=== PATIENT | female | born 1960 | race Caucasian/White ===

== ENCOUNTER → 2019-05-26 13:19 | Outpatient (CLI) | payer MEDICAID, SELFPAY ==
[2019-05-26 13:31] LABS: Basophils # 0.1 K/mm3 (0-0.2); Basophils % 0.5 % (0.1-2.0); Eosinophils # 0.2 K/mm3 (0.0-0.4); Eosinophils % 1.6 % (0.1-12.0); Hematocrit 48.8 % (37.0-47.0); Hemoglobin 15.1 g/dL (12.2-16.2); Lymphocytes # 4.6 K/mm3 (0.7-4.5); Lymphocytes % 32.1 % (10-50); Mean Corpuscular Hemoglobin 27.8 pg (27.0-31.2); Mean Corpuscular Volume 89.7 fl (81-99); Mean Platelet Volume 9.2 fl (7.4-10.4); Monocytes # 0.8 K/mm3 (0.1-1.0); Monocytes % 5.5 % (1.7-9.3); Neutrophils # 8.6 K/mm3 (1.8-7.8); Neutrophils % 60.4 % (37.0-80.0); Platelet Count 340 K/mm3 (142-424); Red Blood Count 5.44 M/mm3 (4.20-5.40); Red Cell Distribution Width 14.2 % (11.5-17.5); White Blood Count 14.3 K/mm3 (4.8-10.8)
[2019-05-26 14:50] LABS: Alanine Aminotransferase 24 U/L (12-78); Albumin Level 4.1 gm/dL (3.4-5.0); Albumin/Globulin Ratio 1.2 (1.1-1.8); Alkaline Phosphatase 83 U/L (46-116); Anion Gap 15.9 mEq/L (5-15); Aspartate Amino Transferase 22 U/L (15-37); Bilirubin,Total 0.4 mg/dL (0.2-1.0); Blood Urea Nitrogen 8 mg/dL (7-18); Calcium 10.1 mg/dL (8.5-10.1); Carbon Dioxide 27 mmol/L (21.0-32.0); Chloride 102 mmol/L (98-107); Chol/HDL Ratio 2.6 (1-3.5); Cholesterol 147 mg/dL (140-200); Creatinine,Serum 0.51 mg/dL (0.55-1.02); Estimated Glomerular Filt Rate 124 ml/min (>60); Free T4 (Free Thyroxine) 1.09 ng/dl (0.76-1.46); GFR (African American) 150 ML/MIN (>60); Globulin 3.4 gm/dl (1.3-3.2); Glucose 90 mg/dL (74-106); HDL Cholesterol 57 mg/dL (29-89); LDL Cholesterol 64 mg/dL (0-130); Potassium 3.9 mmoL/L (3.5-5.1); Sodium 141 mmol/L (136-145); Thyroid Stimulating Hormone 1.49 uIU/ml (0.358-3.740); Total Protein,Serum 7.5 gm/dL (6.4-8.2); Triglycerides 131 mg/dL (30-200); VLDL Cholesterol 26 mg/dL (0-40)
[2019-05-26 14:56] LABS: Hemoglobin A1C 8.3 % (0.0-7.0)
[2019-05-27 09:10] LABS: Vitamin D 25 Hydroxy 32.4 ng/mL (30.0-100.0)
[2019-05-27 11:48] LABS: Creatinine, Urine 177.4 mg/dL (Not Estab.); Microalbumin, Urine 33.2 ug/mL (Not Estab.)
== END ==
PROVIDERS: Visit Provider Emergency Medicine
DX: E11.9 Type 2 diabetes mellitus without complications (principal); Z79.84 Long term (current) use of oral hypoglycemic drugs
CPT/HCPCS: 80053; 80061; 82043; 82570; 82652; 83036; 84439; 84443; 85025

== ENCOUNTER → 2019-08-11 09:26 | Outpatient (CLI) | payer MEDICAID, SELFPAY ==
--- NOTE | 2019-08-11 09:27 | MM_ITS ---
PROCEDURE: MM DIG SCREENING MAMM BI W/CAD CLINICAL INDICATION: screening There is no personal or family history of breast cancer COMPARISON: DIG MAMMO BILAT SCREENING from 12/31/2012 MAMMO SCREENING DIGITAL BILAT from 11/13/2014 Screening-Bilateral Mammography from 04/13/2017 TECHNIQUE: Standard CC and MLO images were obtained. R2 CAD reviewed. FINDINGS: Moderate scattered fibroglandular densities are seen throughout both breasts. There is a curious metallic tubular object deep within the left breast lower medial quadrant. The patient has a history of previous heart surgery as a baby. This metallic foreign body is stable and unchanged in appearance from the previous outside mammograms. There prominent somewhat serpiginous dilated venous structures in the axillary tail right breast. They have shown progressive enlargement over last 3 mammograms dating back to October 2014. Suggest the patient be evaluated for possible venous obstruction right arm and or right shoulder region. There are few scattered benign-appearing microcalcifications in the axillary tail right breast. There is no suspicious lesion and no suspicious microcalcifications. IMPRESSION: Fibrofatty parenchyma with findings as described, stable curious metallic artifact lower inner quadrant left breast prominent somewhat tortuous draining veins in the right axilla and axillary tail of the breast. BI-RAD Category: FOLLOW-UP: 1YR 1 Year Follow-up (A letter has been sent to the patient regarding results of the study.) Dictated by: Dr. Carlton Pimentel MD 08/15/2019 15:[address] Carlton Pimentel MD in [place] 08/15/2019 15:55
== END ==
PROVIDERS: PCP Emergency Medicine; Visit Provider Emergency Medicine
DX: Z12.31 Encounter for screening mammogram for malignant neoplasm of breast (principal)
CPT/HCPCS: 77067

== ENCOUNTER → 2019-09-15 10:41 | Outpatient (CLI) | payer MEDICAID, SELFPAY ==
--- NOTE | 2019-09-15 10:56 | ECG_ITS ---
APPROVED REPORT Exam: Resting ECG HR:66 bpm ECG Measurements Heart Rate 66 AXES GA 136 P 43 QRSd 74 QRS 78 QT 516 T 79 QTc 540 <Conclusion> Sinus rhythm with premature atrial complexes in a pattern of bigeminy Nonspecific T wave abnormality Prolonged QT Abnormal ECG Electronically signed by : Navdeep Swann, 09/15/2019 12:49:46
== END ==
PROVIDERS: Visit Provider Surgery
DX: K81.1 Chronic cholecystitis (principal)
CPT/HCPCS: 93005

== ENCOUNTER → 2020-01-14 13:22 | Outpatient (CLI) | payer MEDICAID, SELFPAY ==
[2020-01-14 14:08] LABS: Alanine Aminotransferase 24 U/L (12-78); Albumin Level 4.7 g/dl (3.5-5.0); Albumin/Globulin Ratio 1.7 (1.1-1.8); Alkaline Phosphatase 59 U/L (38-126); Anion Gap 12.4 mEq/L (5-15); Aspartate Amino Transferase 31 U/L (14-36); Bilirubin,Total 0.3 mg/dl (0.2-1.3); Blood Urea Nitrogen 14 mg/dl (7-17); Calcium 10.6 mg/dl (8.4-10.2); Carbon Dioxide 26 mmol/L (22.0-30.0); Chloride 102 mmol/L (98-107); Chol/HDL Ratio 1.9 (1-3.5); Cholesterol 107 mg/dl (140-200); Estimated Glomerular Filt Rate 126 ml/min (>60); GFR (African American) 153 ML/MIN (>60); Globulin 2.7 g/dL (1.3-3.2); Glucose 142 mg/dl (74-100); HDL Cholesterol 55 mg/dl (40-60); Potassium 4.4 mmoL/L (3.5-5.1); Sodium 136 mmol/L (136-145); Total Protein,Serum 7.4 g/dl (6.3-8.2); Triglycerides 252 mg/dl (30-150); VLDL Cholesterol 50 mg/dL (0-40)
[2020-01-14 14:19] LABS: Direct LDL Cholesterol 38.84 mg/dL (100-129); Free T4 (Free Thyroxine) 1.02 ng/dl (0.78-2.19)
[2020-01-14 14:26] LABS: Basophils # 0.1 K/mm3 (0-0.2); Basophils % 0.7 % (0.1-2.0); Eosinophils # 0.2 K/mm3 (0.0-0.4); Eosinophils % 2.4 % (0.1-12.0); Hematocrit 44.5 % (37.0-47.0); Hemoglobin 13.8 g/dL (12.2-16.2); Lymphocytes # 3.2 K/mm3 (0.7-4.5); Lymphocytes % 34.5 % (10-50); Mean Corpuscular HGB Conc 31.1 g/dL (31.8-35.4); Mean Corpuscular Hemoglobin 28.6 pg (27.0-31.2); Mean Corpuscular Volume 92.1 fl (81-99); Mean Platelet Volume 9.7 fl (7.4-10.4); Monocytes # 0.4 K/mm3 (0.1-1.0); Monocytes % 4.5 % (1.7-9.3); Neutrophils # 5.3 K/mm3 (1.8-7.8); Neutrophils % 57.8 % (37.0-80.0); Platelet Count 310 K/mm3 (142-424); Red Blood Count 4.83 M/mm3 (4.20-5.40); Red Cell Distribution Width 14.1 % (11.5-17.5); White Blood Count 9.2 K/mm3 (4.8-10.8)
[2020-01-14 14:38] LABS: Thyroid Stimulating Hormone 0.69 uIU/mL (0.465-4.68)
[2020-01-15 09:14] LABS: Microalbumin, Urine 7.3 ug/mL (Not Estab.)
== END ==
PROVIDERS: Visit Provider Emergency Medicine
DX: E11.9 Type 2 diabetes mellitus without complications (principal); Z79.4 Long term (current) use of insulin; Z79.899 Other long term (current) drug therapy
CPT/HCPCS: 80053; 80061; 82043; 82570; 83036; 84439; 84443; 85025

== ENCOUNTER → 2020-02-17 14:17 | Outpatient (CLI) | payer MEDICAID, SELFPAY ==
[2020-02-17 14:51] LABS: Anion Gap 14.7 mEq/L (5-15); Blood Urea Nitrogen 17 mg/dl (7-17); Calcium 10.4 mg/dl (8.4-10.2); Carbon Dioxide 28 mmol/L (22.0-30.0); Chloride 99 mmol/L (98-107); Estimated Glomerular Filt Rate 126 ml/min (>60); GFR (African American) 153 ML/MIN (>60); Glucose 90 mg/dl (74-100); Potassium 4.7 mmoL/L (3.5-5.1); Sodium 137 mmol/L (136-145)
== END ==
PROVIDERS: Visit Provider Emergency Medicine
DX: E83.52 Hypercalcemia (principal)
CPT/HCPCS: 80048

== ENCOUNTER → 2020-05-12 15:17 | Outpatient (CLI) | payer MEDICAID, SELFPAY | PROVIDERS: PCP Emergency Medicine; Visit Provider Emergency Medicine | DX: S11.90XA Unspecified open wound of unspecified part of neck, initial encounter (principal); L03.90 Cellulitis, unspecified | CPT/HCPCS: 87070; 87077; 87186; 87205 ==

== ENCOUNTER → 2020-11-02 10:56 | Outpatient (CLI) | payer MEDICAID, SELFPAY ==
[2020-11-02 18:13] LABS: Chol/HDL Ratio 3.4 (1-3.5); Cholesterol 148 mg/dl (140-200); HDL Cholesterol 44 mg/dl (40-60)
[2020-11-02 18:35] LABS: Free T4 (Free Thyroxine) 1.19 ng/dl (0.78-2.19)
[2020-11-02 20:57] LABS: Triglycerides 589 mg/dl (30-150)
== END ==
PROVIDERS: PCP Emergency Medicine; Visit Provider Emergency Medicine
DX: Z20.822 Contact with and (suspected) exposure to COVID-19 (principal); E11.9 Type 2 diabetes mellitus without complications; Z79.4 Long term (current) use of insulin; Z79.899 Other long term (current) drug therapy
CPT/HCPCS: 80061; 84439; 84443; U0003

== ENCOUNTER → 2020-11-02 14:47 | Outpatient (CLI) | payer MEDICAID, SELFPAY ==
[2020-11-02 15:15] LABS: Microalbumin/Creatinine Ratio 125.6
[2020-11-02 15:23] LABS: Creatinine,Urine Random 16 mg/dL (Not Estab.)
== END ==
PROVIDERS: Visit Provider Emergency Medicine
DX: E11.9 Type 2 diabetes mellitus without complications (principal); Z79.4 Long term (current) use of insulin
CPT/HCPCS: 82043; 82570

== ENCOUNTER → 2021-01-03 10:20 | Outpatient (CLI) | payer MEDICAID, SELFPAY ==
--- NOTE | 2021-01-03 10:31 | XR_ITS ---
PROCEDURE: XR SOFT TISSUE NECK CLINICAL INDICATION: neck pain COMPARISON: No exams were available for comparison FINDINGS: Multiple images of the soft tissues of the neck demonstrate disruption of the shunt tubing material in left lateral aspect of the neck on the AP and oblique images. Otherwise the soft tissues demonstrate no focal abnormality. Multilevel minor degenerative changes of the cervical spine. Visualized lung apices are clear.. IMPRESSION: There appears to be disruption of the shunt tubing material. If clinically indicated, CT scan of the head should be considered to evaluate for ventriculomegaly. Dictated by: Estefanía Montemayor 01/03/2021 13:11 Estefanía Montemayor in [facility] 01/03/2021 13:11
--- NOTE | 2021-01-03 10:31 | XR_ITS ---
PROCEDURE: XR CHEST 2V CLINICAL HISTORY: shortness of breath COMPARISON: No exams were available for comparison FINDINGS: Minor left basal atelectasis. Few scattered calcified pleural plaques are noted. Trace left effusion. Raise right hemidiaphragm is noted. No lobar consolidation, or pneumothorax. Cardiac size and central pulmonary vasculature within normal limits. Minor degenerative changes of the visualized thoracic spine. Shunt tubing is noted over the left hemithorax. The soft tissues of the neck were imaged and will be reported separately. The distal end of the shunt tube is noted on the lateral radiograph, appears to be in the upper abdomen. IMPRESSION: Left basal atelectasis. Trace left effusion. Dictated by: Estefanía Montemayor 01/03/2021 12:50 Estefanía Montemayor in [facility] 01/03/2021 12:50
[2021-01-03 14:28] LABS: Alanine Aminotransferase 29 U/L (12-78); Albumin Level 4.8 g/dl (3.5-5.0); Albumin/Globulin Ratio 1.6 (1.1-1.8); Alkaline Phosphatase 77 U/L (38-126); Anion Gap 14.6 mEq/L (5-15); Aspartate Amino Transferase 40 U/L (14-36); Bilirubin,Total 0.5 mg/dl (0.2-1.3); Blood Urea Nitrogen 13 mg/dl (7-17); Calcium 10.5 mg/dl (8.4-10.2); Carbon Dioxide 29 mmol/L (22.0-30.0); Chloride 99 mmol/L (98-107); Estimated Glomerular Filt Rate 163 ml/min (>60); GFR (African American) 197 ML/MIN (>60); Glucose 177 mg/dl (74-100); Potassium 3.6 mmoL/L (3.5-5.1); Sodium 139 mmol/L (136-145); Total Protein,Serum 7.8 g/dl (6.3-8.2)
[2021-01-03 14:31] LABS: Basophils # 0.1 K/mm3 (0-0.2); Basophils % 0.8 % (0.1-2.0); Eosinophils # 0.2 K/mm3 (0.0-0.4); Eosinophils % 2.2 % (0.1-12.0); Hematocrit 46.8 % (37.0-47.0); Hemoglobin 15.5 g/dL (12.2-16.2); Lymphocytes # 2.9 K/mm3 (0.7-4.5); Lymphocytes % 37.2 % (10-50); Mean Corpuscular HGB Conc 33.1 g/dL (31.8-35.4); Mean Corpuscular Volume 87.5 fl (81-99); Mean Platelet Volume 9.1 fl (7.4-10.4); Monocytes # 0.4 K/mm3 (0.1-1.0); Monocytes % 5.6 % (1.7-9.3); Neutrophils # 4.3 K/mm3 (1.8-7.8); Neutrophils % 54.3 % (37.0-80.0); Platelet Count 303 K/mm3 (142-424); Red Blood Count 5.34 M/mm3 (4.20-5.40); Red Cell Distribution Width 13.6 % (11.5-17.5); White Blood Count 7.9 K/mm3 (4.8-10.8)
== END ==
PROVIDERS: PCP Emergency Medicine; Visit Provider Emergency Medicine
DX: R06.02 Shortness of breath (principal); M54.2 Cervicalgia; E11.9 Type 2 diabetes mellitus without complications; Z79.4 Long term (current) use of insulin
CPT/HCPCS: 70360; 71046; 80053; 83036; 85025

== ENCOUNTER → 2021-12-23 16:21 | Outpatient (CLI) | payer MEDICAID, SELFPAY ==
[2021-12-23 13:15] LABS: Microscopic, Urine URINE MICROSCOPIC (MICROSCOPIC)
[2021-12-23 14:01] LABS: Basophils # 0.1 K/mm3 (0-0.2); Eosinophils # 0.2 K/mm3 (0.0-0.4); Eosinophils % 1.8 % (0.1-12.0); Hemoglobin 14.7 g/dL (12.2-16.2); Lymphocytes # 3.1 K/mm3 (0.7-4.5); Lymphocytes % 34.2 % (10-50); Mean Corpuscular HGB Conc 32.6 g/dL (31.8-35.4); Mean Corpuscular Hemoglobin 29.3 pg (27.0-31.2); Mean Corpuscular Volume 89.8 fl (81-99); Mean Platelet Volume 10.4 fl (7.4-10.4); Monocytes # 0.5 K/mm3 (0.1-1.0); Monocytes % 5.2 % (1.7-9.3); Neutrophils # 5.3 K/mm3 (1.8-7.8); Neutrophils % 57.7 % (37.0-80.0); Platelet Count 246 K/mm3 (142-424); Red Blood Count 5.01 M/mm3 (4.20-5.40); Red Cell Distribution Width 14.6 % (11.5-17.5); White Blood Count 9.1 K/mm3 (4.8-10.8)
[2021-12-23 17:20] LABS: Appearance,Urine CLEAR (Clear); Bilirubin,Urine Negative (Negative); Blood, Urine Negative (Negative); Color,Urine YELLOW (Yellow); Glucose,Urine (UA) 3+ (Negative); Ketones,Urine Negative (Negative); Leukocyte Esterase,Urine Negative (Negative); Nitrate,Urine Negative (Negative); PH,Urine 5.5 (5.0-8.5); Protein,Urine Negative (Negative); Specific Gravity, Urine 1.025 (1.005-1.030); Urobilinogen,Urine 0.2 EU/dl (0.2)
[2021-12-23 17:49] LABS: Bacteria,Urine Trace /lpf; WBC,Urine Occasional #/hpf (0-3)
[2021-12-23 18:51] LABS: Alanine Aminotransferase 37 U/L (12-78); Albumin Level 4.4 g/dl (3.5-5.0); Albumin/Globulin Ratio 1.9 (1.1-1.8); Alkaline Phosphatase 96 U/L (38-126); Anion Gap 15.3 mEq/L (5-15); Aspartate Amino Transferase 31 U/L (14-36); Bilirubin,Total 0.4 mg/dl (0.2-1.3); Blood Urea Nitrogen 14 mg/dl (7-17); Carbon Dioxide 22 mmol/L (22.0-30.0); Chloride 103 mmol/L (98-107); Estimated Glomerular Filt Rate 125 ml/min (>60); GFR (African American) 152 ML/MIN (>60); Globulin 2.3 g/dL (1.3-3.2); Glucose 386 mg/dl (74-100); Potassium 4.3 mmoL/L (3.5-5.1); Sodium 136 mmol/L (136-145); Total Protein,Serum 6.7 g/dl (6.3-8.2)
== END ==
PROVIDERS: PCP Emergency Medicine; Visit Provider Emergency Medicine
DX: E11.9 Type 2 diabetes mellitus without complications (principal); R82.90 Unspecified abnormal findings in urine; Z79.4 Long term (current) use of insulin
CPT/HCPCS: 80053; 81001; 85025; 87086

== ENCOUNTER → 2022-03-24 15:03 | Outpatient (CLI) | payer MEDICAID, SELFPAY ==
--- NOTE | 2022-03-24 15:06 | MM_ITS ---
PROCEDURE INFORMATION: Exam: MG Bilateral Screening 3D Mammography Exam date and time: 03/24/2022 3:12 PM Age: 61 years old Clinical indication: Screening examination TECHNIQUE: Imaging protocol: Bilateral Screening tomosynthesis and 2D mammography including computer-aided detection (CAD) when performed. COMPARISON: 1. MG MM DIG SCREENING MAMM BI W/CAD 08/11/2019 9:39 AM 2. MG Screening-Bilateral Mammography 04/13/2017 11:35 AM FINDINGS: MAMMOGRAPHY: Breast composition: There are scattered areas of fibroglandular density. Mass: None. Architectural distortion: None. Calcifications: No suspicious calcifications. Asymmetric density: None. Skin thickening: None. Axillary adenopathy: None. Calcified tubing is is again seen in the posterior left breast. Prominent right axillary tail vascular structures are a stable finding IMPRESSION: No mammographic evidence of malignancy. Annual screening is recommended unless otherwise clinically indicated. ASSESSMENT: BI-RADS Category 1: Negative
== END ==
PROVIDERS: PCP Emergency Medicine; Visit Provider Emergency Medicine
DX: Z12.31 Encounter for screening mammogram for malignant neoplasm of breast (principal)
CPT/HCPCS: 77063; 77067

== ENCOUNTER → 2022-05-08 19:39 | Outpatient (CLI) | payer MEDICAID, SELFPAY ==
[2022-05-08 20:55] LABS: Hemoglobin A1C 9.4 % (4.0-6.0)
== END ==
PROVIDERS: PCP Family Medicine; Visit Provider Family Medicine
DX: E11.9 Type 2 diabetes mellitus without complications (principal); Z79.4 Long term (current) use of insulin
CPT/HCPCS: 83036

== ENCOUNTER → 2023-01-15 15:16 | Outpatient (CLI) | payer MEDICAID, SELFPAY ==
[2023-01-15 18:26] LABS: Alanine Aminotransferase 25 U/L (12-78); Albumin Level 4.3 g/dl (3.5-5.0); Albumin/Globulin Ratio 1.5 (1.1-1.8); Alkaline Phosphatase 113 U/L (38-126); Anion Gap 21.4 mEq/L (5-15); Aspartate Amino Transferase 26 U/L (14-36); Bilirubin,Total 0.6 mg/dl (0.2-1.3); Blood Urea Nitrogen 16 mg/dl (7-17); Calcium 9.8 mg/dl (8.4-10.2); Carbon Dioxide 24 mmol/L (22.0-30.0); Chloride 100 mmol/L (98-107); Chol/HDL Ratio 2.2 (1-3.5); Cholesterol 157 mg/dl (140-200); Estimated Glomerular Filt Rate 101 ml/min (>60); GFR (African American) 123 ML/MIN (>60); Globulin 2.8 g/dL (1.3-3.2); Glucose 178 mg/dl (74-100); HDL Cholesterol 73 mg/dl (40-60); Potassium 4.4 mmoL/L (3.5-5.1); Sodium 141 mmol/L (136-145); Total Protein,Serum 7.1 g/dl (6.3-8.2); Triglycerides 186 mg/dl (30-150); VLDL Cholesterol 37 mg/dL (0-40)
[2023-01-15 18:37] LABS: Direct LDL Cholesterol 68.11 mg/dL (100-129)
[2023-01-15 18:43] LABS: Basophils # 0.1 K/mm3 (0-0.2); Basophils % 0.5 % (0.1-2.0); Eosinophils # 0.2 K/mm3 (0.0-0.4); Eosinophils % 1.3 % (0.1-12.0); Hematocrit 47.1 % (37.0-47.0); Hemoglobin 15.2 g/dL (12.2-16.2); Lymphocytes # 3.6 K/mm3 (0.7-4.5); Lymphocytes % 27.8 % (10-50); Mean Corpuscular HGB Conc 32.3 g/dL (31.8-35.4); Mean Corpuscular Hemoglobin 29.9 pg (27.0-31.2); Mean Corpuscular Volume 92.6 fl (81-99); Mean Platelet Volume 9.5 fl (7.4-10.4); Monocytes # 0.6 K/mm3 (0.1-1.0); Monocytes % 4.5 % (1.7-9.3); Neutrophils # 8.6 K/mm3 (1.8-7.8); Neutrophils % 65.9 % (37.0-80.0); Platelet Count 299 K/mm3 (142-424); Red Blood Count 5.08 M/mm3 (4.20-5.40); Red Cell Distribution Width 14.2 % (11.5-17.5)
[2023-01-15 18:58] LABS: Thyroid Stimulating Hormone 0.46 uIU/mL (0.465-4.68)
== END ==
PROVIDERS: PCP Emergency Medicine; Visit Provider Emergency Medicine
DX: E11.9 Type 2 diabetes mellitus without complications (principal); Z79.4 Long term (current) use of insulin; Z79.899 Other long term (current) drug therapy
CPT/HCPCS: 80053; 80061; 84443; 85025

== ENCOUNTER → 2023-07-10 15:04 | Outpatient (CLI) | payer MEDICAID, SELFPAY ==
[2023-07-10 14:31] LABS: Amphetamine/Metha Screen,Urine Negative ng/ml (<1000)
[2023-07-10 14:32] LABS: Barbiturates Screen,Urine Positive ng/ml (<200)
[2023-07-10 14:33] LABS: Benzodiazepines Screen,Urine Negative ng/ml (<200)
[2023-07-10 14:35] LABS: Cannabinoid Screen,Urine Negative ng/ml (<50); Cocaine Screen,Urine Negative ng/ml (<300)
[2023-07-10 14:36] LABS: Methadone Screen,Urine Negative ng/ml (<300); Opiate Screen,Urine Positive ng/ml (<300)
[2023-07-10 14:37] LABS: Phencyclidine Screen,Urine Negative ng/ml (<25)
== END ==
PROVIDERS: PCP Emergency Medicine; Visit Provider Emergency Medicine
DX: Z79.899 Other long term (current) drug therapy (principal)
CPT/HCPCS: 80305

== ENCOUNTER 2023-10-08 12:58 | Outpatient (CLI) | payer MEDICAID, SELFPAY ==
[2023-10-08 17:05] LABS: Creatinine,Urine Random 9 mg/dL (Not Estab.)
[2023-10-08 17:10] LABS: Microalbumin < 6.000 mg/L (0-16.7)
== END 2023-10-08 23:59 ==
LOC: LAB.DROPOF 12:58
PROVIDERS: PCP Family Medicine; Visit Provider Family Medicine
DX: E11.9 Type 2 diabetes mellitus without complications (principal); Z79.4 Long term (current) use of insulin; Z79.84 Long term (current) use of oral hypoglycemic drugs; Z79.85 Long-term (current) use of injectable non-insulin antidiabetic drugs
CPT/HCPCS: 82043; 82570

== ENCOUNTER 2024-02-13 19:29 | Outpatient (CLI) | payer MEDICAID, SELFPAY ==
[2024-02-13 20:09] LABS: Basophils # 0.2 K/mm3 (0-0.2); Basophils % 1.9 % (0.1-2.0); Eosinophils # 0.3 K/mm3 (0.0-0.4); Eosinophils % 2.3 % (0.1-12.0); Hematocrit 53.8 % (37.0-47.0); Hemoglobin 17.3 g/dL (12.2-16.2); Lymphocytes # 2.8 K/mm3 (0.7-4.5); Lymphocytes % 22.4 % (10-50); Mean Corpuscular HGB Conc 32.1 g/dL (31.8-35.4); Mean Corpuscular Hemoglobin 29.4 pg (27.0-31.2); Mean Corpuscular Volume 91.4 fl (81-99); Mean Platelet Volume 9.4 fl (7.4-10.4); Monocytes # 0.7 K/mm3 (0.1-1.0); Monocytes % 5.4 % (1.7-9.3); Neutrophils # 8.5 K/mm3 (1.8-7.8); Platelet Count 312 K/mm3 (142-424); Red Blood Count 5.88 M/mm3 (4.20-5.40); Red Cell Distribution Width 15.9 % (11.5-17.5); White Blood Count 12.4 K/mm3 (4.8-10.8)
[2024-02-13 20:22] LABS: Hemoglobin A1C 11.1 % (4.0-6.0)
[2024-02-13 20:34] LABS: Alanine Aminotransferase 28 U/L (12-78); Albumin/Globulin Ratio 1.5 (1.1-1.8); Alkaline Phosphatase 133 U/L (38-126); Anion Gap 21.9 mEq/L (5-15); Aspartate Amino Transferase 32 U/L (14-36); Bilirubin,Total 0.7 mg/dl (0.2-1.3); Blood Urea Nitrogen 14 mg/dl (7-17); Calcium 10.4 mg/dl (8.4-10.2); Carbon Dioxide 25 mmol/L (22.0-30.0); Chloride 97 mmol/L (98-107); Chol/HDL Ratio 4.3 (1-3.5); Cholesterol 187 mg/dl (140-200); Estimated Glomerular Filt Rate 125 ml/min (>60); GFR (African American) 151 ML/MIN (>60); Globulin 3.4 g/dL (1.3-3.2); Glucose 304 mg/dl (74-100); HDL Cholesterol 44 mg/dl (40-60); Potassium 4.9 mmoL/L (3.5-5.1); Sodium 139 mmol/L (136-145); Total Protein,Serum 8.4 g/dl (6.3-8.2)
[2024-02-13 20:42] LABS: Triglycerides 662 mg/dl (30-150)
[2024-02-13 20:51] LABS: 25-OH Vitamin D, Total 21.8 ng/mL (30-100); Free Thyroxine Index 3.4 ug/dL (5.93-13.13); T4 (Thyroxine) 11.4 ug/dl (5.53-11.0); Triiodothryronine (T3) Uptake 30 % (23.5-40.5)
[2024-02-13 20:56] LABS: Direct LDL Cholesterol 64.57 mg/dL (100-129)
[2024-02-13 21:04] LABS: Thyroid Stimulating Hormone 1.05 uIU/mL (0.465-4.68)
== END 2024-02-13 23:59 | disposition home or self-care (01) ==
LOC: LAB.DROPOF 19:30
PROVIDERS: PCP Family Medicine; Visit Provider Family Medicine
DX: E11.9 Type 2 diabetes mellitus without complications (principal); Z79.4 Long term (current) use of insulin; E66.9 Obesity, unspecified; Z68.34 Body mass index [BMI] 34.0-34.9, adult
CPT/HCPCS: 80050; 80053; 80061; 82306; 83036; 84436; 84443; 84479; 85025

== ENCOUNTER 2024-03-05 11:57 | Outpatient (CLI) | payer MEDICAID, SELFPAY ==
--- NOTE | 2024-03-05 12:22 | NM_ITS ---
APPROVED REPORT Exam: Nuclear Stress Test Indication: cp..soa..fatigue Patient Location: Outpatient Stress Tech: Kiara KNOWLES Tech:Rosa M RichardsMODESTA RT(R)(N) Ht: 4 ft 11 in Wt: 170 lbs Bra Size: b HR: 74 bpm BP: 116/70 mmHg BSA: 1.72 m2 TID: 1.28 BMI: 34.3 History: cp..soa..fatigue Procedure: Patient received 0.4 mg of intravenous Lexiscan, resting heart rate 74 bpm, resting blood pressure 116/70 mmHg, with Lexiscan maximum heart rate achieved was 90 bpm which is 85 % of the maximum predicted heart rate and blood pressure was 113/62 mmHg. With Lexiscan, patient denied any complaint of chest pain. Cardiac Stress and Resting SPECT Images: Cardiac Stress and Resting SPECT images were obtained using technetium 99m Myoview 30.8 mCi stress and 10.56 mCi at rest. Resting and stress imaging in supine and prone positions demonstrate no evidence of fixed or reversible perfusion defects. There is increase in transient ischemic dilatation ratio (TID 1.28), suggestive of possible multivessel disease or balanced ischemia. Gated imaging demonstrates normal global and regional LV systolic function. LVEF is calculated at 65%. Conclusion: no evidence of fixed or reversible perfusion defects. There is increase in transient ischemic dilatation ratio (TID 1.28), suggestive of possible multivessel disease or balanced ischemia. Gated imaging demonstrates normal global and regional LV systolic function. LVEF is calculated at 65%. Setting of normal normal LV systolic function and presence of TID, further evaluation noninvasively with CCTA is suggested prior to proceeding with invasive coronary angiography to rule out multivessel disease. Electronically signed by : Denise Miranda MD 03/06/2024 13:07:59
[2024-03-05] MEDS: SODIUM CHLORIDE 0.9% 10ML SYR (RAD ONLY) 10 ML IV ×2 (12:30→14:00)
--- NOTE | 2024-03-05 12:39 | CA_ITS ---
APPROVED REPORT EXAM: Comprehensive 2D, Doppler, and color-flow Echocardiogram [employer]ra[employer] Grinder: Kassy Mejia CRT Ht: 4 ft 11 in Wt: 172lbs BSA: 1.73 BP: 136/80 mmHg Indications: Chest Pain, Shortness of Breath, Diabetes 1 heart surgery as a baby and 1 as an adult (unknown procedure) 2D Dimensions LA Volume 33.80 mL LA Volume Index 19.10 mL/m2 (M/F) 16-34 M-Mode Dimensions RVDd 3.15 cm (0.9-2.6) LA Diam 3.98 cm (1.9-4.0) LVDd 4.44 cm (3.5-5.7) LVDs 3.15 cm (3.5-5.7) IVSd 1.25 cm (0.6-1.1) PWd 0.64 cm (0.6-1.1) EF (Teich) 56.00% FS 29.10% EDV (Teich) 89.60 mL TAPSE 1.45 (<1.7) ESV (Teich) 39.40 mL LV Diastology E Decel Time 143 (160-240 msec) E/A Ratio 0.78 MED A' 7.00 cm/s LAT A' 5.50 cm/s Aortic Valve AO Peak GR. 6.50 mmHg Mitral Valve MV A Velocity 69.0 (40-130 cm/s) E/A Ratio 0.78 Pulmonary Valve PV Peak Velocity 124.0 (50-150 cm/s) Tricuspid Valve TR P. Velocity 236.00 cm/s RAP Estimate 10.00 mmHg RVSP 32.40 mmHg Left Ventricle The left ventricle is normal size. The left ventricular systolic function is normal. The left ventricular ejection fraction is within the normal range. There is increased LV wall thickness. There is normal LV segmental wall motion. The left ventricular diastolic function is normal. LVEF is 55%. Right Ventricle Right ventricle is mildly dilated. The right ventricular systolic function is normal. Atria The left atrium size is normal. The right atrium size is normal. There is no Doppler evidence of interatrial shunt. Aortic Valve The aortic valve is mildly thickened. There is no aortic valvular stenosis. No aortic regurgitation is present. Mitral Valve The mitral valve is normal in structure. No evidence of mitral valve stenosis. There is no mitral valve regurgitation noted. Tricuspid Valve The tricuspid valve leaflets are thin and pliable. There is no tricuspid valve stenosis. Trace tricuspid regurgitation. There is insufficient TR jet to estimate RVSP. Pulmonic Valve The pulmonary valve is normal in structure. Trace pulmonic regurgitation. Great Vessels The aortic root is normal in size. The ascending aorta is normal in size. IVC is normal in size and collapses >50% with inspiration. Pericardium There is no pericardial effusion. Electronically signed by : Denise Miranda MD 03/12/2024 02:09:55
[2024-03-05] MEDS: REGADENOSON 0.4MG/5ML SYRINGE 0.4 MG IV (14:00)
[2024-03-05] MEDS: ISOTOPE MYOVIEW (PER STUDY) 1 DOSE IV (14:38)
== END 2024-03-05 23:59 | disposition home or self-care (01) ==
LOC: RAD 11:57
PROVIDERS: PCP Family Medicine; Visit Provider Family Medicine
DX: R06.09 Other forms of dyspnea (principal); I20.89 Other forms of angina pectoris; R07.9 Chest pain, unspecified
CPT/HCPCS: 78452; 93017; 93018; 93306; A9502; J2785

== ENCOUNTER 2024-10-02 09:53 | Outpatient (CLI) | payer MEDICAID, SELFPAY ==
[2024-10-02 19:29] LABS: Basophils # 0.1 K/mm3 (0-0.2); Basophils % 0.7 % (0.1-2.0); Eosinophils # 0.3 K/mm3 (0.0-0.4); Hemoglobin 14.9 g/dL (12.2-16.2); Lymphocytes # 3.8 K/mm3 (0.7-4.5); Lymphocytes % 35.8 % (10-50); Mean Corpuscular HGB Conc 32.4 g/dL (31.8-35.4); Mean Corpuscular Hemoglobin 29.9 pg (27.0-31.2); Mean Corpuscular Volume 92.4 fl (81-99); Mean Platelet Volume 11.1 fl (7.4-10.4); Monocytes # 0.5 K/mm3 (0.1-1.0); Monocytes % 5.1 % (1.7-9.3); Neutrophils # 5.8 K/mm3 (1.8-7.8); Neutrophils % 54.7 % (37.0-80.0); Platelet Count 242 K/mm3 (142-424); Red Blood Count 4.98 M/mm3 (4.20-5.40); Red Cell Distribution Width 13.3 % (11.5-17.5); White Blood Count 10.5 K/mm3 (4.8-10.8)
[2024-10-02 19:59] LABS: Alanine Aminotransferase 23 U/L (12-78); Albumin Level 4.8 g/dl (3.5-5.0); Albumin/Globulin Ratio 2.2 (1.1-1.8); Alkaline Phosphatase 90 U/L (38-126); Anion Gap 22.2 mEq/L (5-15); Aspartate Amino Transferase 19 U/L (14-36); Bilirubin,Total 0.6 mg/dl (0.2-1.3); Blood Urea Nitrogen 18 mg/dl (7-17); Calcium 9.9 mg/dl (8.4-10.2); Carbon Dioxide 21 mmol/L (22.0-30.0); Chloride 99 mmol/L (98-107); Chol/HDL Ratio 2.3 (1-3.5); Cholesterol 138 mg/dl (140-200); Estimated Glomerular Filt Rate 161 ml/min (>60); GFR (African American) 194 ML/MIN (>60); Globulin 2.2 g/dL (1.3-3.2); Glucose 206 mg/dl (74-100); HDL Cholesterol 60 mg/dl (40-60); Potassium 4.2 mmoL/L (3.5-5.1); Sodium 138 mmol/L (136-145); Triglycerides 169 mg/dl (30-150); VLDL Cholesterol 34 mg/dL (0-40)
[2024-10-02 20:10] LABS: Direct LDL Cholesterol 44.49 mg/dL (100-129)
[2024-10-02 20:15] LABS: Hemoglobin A1C 9.7 % (4.0-6.0)
[2024-10-02 20:18] LABS: 25-OH Vitamin D, Total 16.8 ng/mL (30-100)
[2024-10-02 20:27] LABS: Thyroid Stimulating Hormone 0.75 uIU/mL (0.465-4.68)
== END 2024-10-02 23:59 | disposition home or self-care (01) ==
LOC: LAB.DROPOF 10-03 12:46
PROVIDERS: PCP Family Medicine; Visit Provider Family Medicine
DX: E11.9 Type 2 diabetes mellitus without complications (principal); Z79.01 Long term (current) use of anticoagulants; F41.9 Anxiety disorder, unspecified; E11.40 Type 2 diabetes mellitus with diabetic neuropathy, unspecified; Z79.4 Long term (current) use of insulin
CPT/HCPCS: 80053; 80061; 82306; 83036; 84443; 85025

== ENCOUNTER 2025-08-12 09:48 | Outpatient (CLI) | payer MEDICAID, SELFPAY ==
--- OUTSIDE RECORDS SUMMARY | 2025-06-27 14:15 | XMS_ITS | Encounter Summary ---
Author Organization [employer] ([place], [place], [place], [place], [place]) Address [address] [place] [address] Care Team Providers Care Resource Engineer Name Role Phone [facility] Connection, Find-A-Doc Primary Care Provider Reason for Visit * Reason Comments Chest Pain Pt here via EMS for chest pain that began at 1400. Pt took 81mg asa at home, EMS gave 243 enroute Encounter Details Date Type Department Care Team (Late st Contact Info) Description 06/27/2025 3:15 PM EDT - 06/27/2025 7:14 PM EDT Emergency [facility] Emergency Department [address] [place] [address] Gustabo Tripp MD [address] [place] [address] Atypical chest pain (Primary Dx) Discharge Disposition: Home or Self Care Social History Tobacco Use Types Packs/Day Years Used Date Smoking Tobacco: Never Smokeless Tobacco: Never Alcohol Use Standard Drinks/Week Comments Never 0 (1 standard drink = 0.6 oz pur e alcohol) PRAPARE - Transportation Answer Date Re corded In the past 12 months, has l ack of transportation kept you from medical appointments or from getting medications? No 11/23/2022 Lack of Transportation (Non-Medical) Not on file 11/23/2022 Utilities Answer Date Recorded In the past 12 months, has t he electric, gas, oil, or water company threatened to shut off services in your home? No 02/19/2025 Interpersonal Safety Answer Date Record ed How often does anyone, yvonne sands family and friends, physically hurt you? Never 02/19/2025 How often does anyone, yvonne sands family and friends, insult or talk down to you? Never 02/19/2025 How often does anyone, yvonne sands family and friends, threaten you with harm? Never 02/19/2025 How often does anyone, yvonne sands family and friends, scream or curse at you? Never 02/19/2025 Housing Stability Answer Date Recorded What is your living situation today? [place] a [place] [address] to live 02/19/[address] you li ve. Do you have problems with any of the following? None of the above 02/19/2025 Food Insecurity Answer Date Recorded Within the past 12 months, y ou worried that your food would run out before you got money to buy more. Never true 02/19/2025 Within the past 12 months, t he food you bought just didn't last and you didn't have money to get more. Never true 02/19/2025 Transportation Needs Answer Date Record ed In the past 12 months, has l ack of reliable transportation kept you from medical appointments, meetings, work or from getting things needed for daily living? No 02/19/2025 Financial Resource Strain Answer Date R ecorded How hard is it for you to pa y for the very basics like food, housing, medical care, and heating? Would you say it is: Not hard at all 02/19/2025 Employment Answer Date Recorded Do you want help finding or keeping work or a job? I do not need or want help 02/19/2025 Family and Community Support Answer Anupam e Recorded If for any reason you need h elp with day-to-day activities such as bathing, preparing meals, shopping, managing finances, etc., do you get the help you need? I don't need any help 02/19/2025 Feeling Lonely or Isolated 0 02/19 Educational Attainment Answer Date Ritesh rded Do you speak a language other than [place] at [facility]? No 02/19/2025 Do you want help with school or training? For example, starting or completing job training or getting a high school diploma, GED or equivalent. No 02/19/2025 Physical Activity Answer Date Recorded Number of minutes of exercise per week 50 02/19/2025 Self Management Answer Date Recorded Because of a physical, menta l, or emotional condition, do you have serious difficulty concentrating, remembering, or making decisions? (5 years or older) No 02/19/2025 Because of a physical, menta l, or emotional condition, do you have difficulty doing errands alone such as visiting a doctor's office or shopping? (15 years or older) No 02/19/2025 Substance Use Answer Date Recorded How many times in the past y ear have you used prescription drugs for non-medical reasons? Never 02/19/2025 How many times in the past year have you used il legal drugs? Never 02/19/2025 Mental Health Answer Date Recorded Calculation of above two rows 0 Comments No Sex and Gender Information Value Date Recorded Sex Assigned at Not on file Legal Sex Female 1:33 PM CDT Gender Identity Not on file Sexual Orientation Not on file documented as of this encounter Last Filed Vital Signs Vital Sign Reading Time Taken Comments Blood Pressure 124/69 06/27/2025 3:20 PM EDT Pulse 81 06/27/2025 6:45 PM EDT Temperature 36.7 C (98.1 F) 06/27/2025 3:20 PM EDT Respiratory Rate 19 06/27/2025 6:45 PM EDT Oxygen Saturation 98% 06/27/2025 6:45 PM EDT Inhaled Oxygen Concentration - - Weight 68 kg (150 lb) 06/27/2025 3:20 PM EDT Height 149.9 cm (4' 11 ) 06/27/2025 3:20 PM EDT Body Mass Index 30.3 06/27/2025 3:20 PM EDT documented in this encounter Functional Status * Are you deaf or do you have serious difficulty hearing? Answer Date of Assessment Author No 11/25/2022 9:58 AM CDT Celi Salamanca RN * Are you blind or do you have serious difficulty seeing, even when wearing glasses? Answer Date of Assessment Author No 11/25/2022 9:58 AM CDT Celi Salamanca RN * Do you have serious difficulty walking or climbing stairs? Answer Date of Assessment Author No 11/25/2022 9:58 AM CDT Celi Salamanca RN * Do you have serious difficulty dressing or bathing? Answer Date of Assessment Author No 11/25/2022 9:58 AM Celi Small RN * Because of a physical, mental, or emotional condition, do you have serious difficulty doing errandsalone such as visiting the doctor? Answer Date of Assessment Author No 11/25/2022 9:58 AM Celi Small RN documented as of this encounter Mental Status * Because of a physical, mental, or emotional condition, do you have serious difficulty concentrating, remembering, or making decisions? (5 years old or older) Answer Entry Date Author No 11/25/2022 9:58 AM Celi Small RN documented in this encounter Discharge Instructions * Attachments The following attachments cannot be sent through Care Everywhere. * Nonspecific Chest Pain Adult Pefi-mt-Awps (Namibian) documented in this encounter Medications at Time of Discharge albuterol HFA (VENTOLIN HFA) 90 mcg/actuation inhaler Inhale 2 puffs by mouth every 6 (six) hours as needed for wheezing. aspirin 81 MG EC tablet Take 1 tablet (81 mg total) by mouth daily. 02/10/2022 atorvastatin (LIPITOR) 80 MG tablet Take 1 tablet (80 mg total) by mouth nightly. 06/08/2022 busPIRone (BUSPAR) 5 MG tablet Take 1 tablet (5 mg total) by mouth 2 (two) times daily. cholecalciferol, vitamin D3, 50 mcg (2,000 unit) cap Take 1 capsule (2,000 Units total) by mouth daily. dapagliflozin propanediol (Farxiga) 10 mg tablet Take 1 tablet (10 mg total) by mouth daily. DULoxetine (CYMBALTA) 30 MG capsule Take 1 capsule (30 mg total) by mouth daily. fexofenadine (NOLVIA) 180 MG tablet Take 1 tablet (180 mg total) by mouth daily. gabapentin (NEURONTIN) 600 MG tablet Take 1 tablet (600 mg total) by mouth 2 (two) times daily. 06/08/2022 insulin glargine (LANTUS, SEMGLEE) 100 unit/mL injection Inject 6-10 Units under the skin nightly. lisinopriL (ZESTRIL) 2.5 MG tablet Take 1 tablet (2.5 mg total) by mouth daily. metFORMIN (GLUCOPHAGE) 500 MG tablet Take 1 tablet (500 mg total) by mouth 2 (two) times daily with breakfast and dinner. pantoprazole (PROTONIX) 40 MG tablet Take 1 tablet (40 mg total) by mouth daily. potassium chloride (KLOR-CON) 20 MEQ tablet Take 1 tablet (20 mEq total) by mouth daily. ranolazine (RANEXA) 500 MG 12 hr tablet Take 1 tablet (500 mg total) by mouth 2 (two) times daily. rivaroxaban (XARELTO) 10 mg tablet Take 1 tablet (10 mg total) by mouth daily. traZODone (DESYREL) 100 MG tablet Take 1 tablet (100 mg total) by mouth nightly. 02/10/2022 documented as of this encounter ED Notes * Christina Franklin, STUCCO APPLICATOR - 06/27/2025 3:22 PM EDTAssociated Order(s): ECG 12 lead; ECG 12 lead Subjective Chief Complaint: Chest Pain (Pt here via EMS for chest pain that began at 1400. Pt took 81mg asa athome, EMS gave 243 enroute) HPI 64-year-old female presents to ER via EMS with complaints of midsternal chest pressure since 1400. Patient describes this as rather sudden onset, worse with certain movements and with palpation of the center of the chest. Recent CSF shunt placement approximately 1 month ago per her report at [facility]. She does have history of pulmonary embolism, anticoagulated on Xarelto and states she has been compliant. States she did have to come off this for 3 days during surgery, but no longer. Patient denies headache, dizziness, shortness of breath, abdominal pain, nausea, vomiting, sweating, cough. Reports swelling to bilateral lower extremities, particularly feet. States she has been compliant on her fluid pill. Past medical history CHF, diabetes mellitus, hyperlipidemia, hypertension, pulmonary embolism. ROS negative except as documented in HPI. Patient History Past Medical History: Diagnosis Date CHF (congestive heart failure) (HCC) Diabetes mellitus (HCC) Hyperlipidemia Hypertension Neuropathy Pulmonary embolism (HCC) Past Surgical History: Procedure Laterality Date ASD REPAIR CHOLECYSTECTOMY 1989 CSF SHUNT No family history on file. Social History Tobacco Use Smoking status: Never Smokeless tobacco: Never Substance Use Topics Alcohol use: Never I reviewed the HPI, ROS and PFSH documentation recorded by others in the medical record and supplemented my note as needed. Review of Systems Review of Systems Physical Exam ED Triage Vitals 06/27/25 1520 Encounter Vitals Group BP 124/69 Girls Systolic BP Percentile Girls Diastolic BP Percentile Boys Systolic BP Percentile Boys Diastolic BP Percentile Pulse 93 Resp 16 Temp 98.1 ??F (36.7 ??C) Temp src Oral SpO2 97 % Weight 68 kg (150 lb) Height 1.499 m (4' 11 ) Head Circumference Peak Flow Pain Score Six Pain Loc Pain Education Exclude from Growth Chart Physical Exam GENERAL: Well-developed, well-nourished HEENT: Normocephalic, atraumatic. PERRL. Mucous membranes moist NECK: No LAD, neck supple, no tracheal deviation HEART: Regular rhythm, no murmurs, gallops, or rubs appreciated; 2+ radial and pedal pulses bilaterally LUNGS/CHEST: Clear bilaterally with normal effort and good air movement. No wheezes, rales, or rhonchi; reproducible chest pain noted mid sternum. No crepitus, ecchymosis or erythema noted ABDOMEN: Soft, nontender, nondistended. EXTREMITIES: Moving all four extremities with no acute deformity or joint effusions SKIN: 1+ non pitting edema noted BLE; Warm, dry, well-perfused, no rashes NEURO: Alert, awake, and oriented to person, place, and time. Grossly nonfocal with intact strengthand sensation to bilateral upper and lower extremities ED Course & MDM Medications - No data to display Results for orders placed or performed during the hospital encounter of 06/27/25 CBC with Auto Diff Result Value Ref Range WBC 8.8 3.9 - 10.0 K/??L RBC 4.51 3.93 - 6.08 M/??L Hemoglobin 13.3 11.2 - 15.7 GM/DL Hematocrit 39.9 34.1 - 44.9 % MCV 89 79 - 95 fL MCH 29.5 25.6 - 32.2 pg MCHC 33.3 32.2 - 36.5 GM/DL RDW 15.5 (H) 11.6 - 14.4 % Platelets 302 163 - 369 K/CU MM MPV 10.2 9.4 - 12.4 fL % Neutros 68 34 - 71 % % Lymphs 23 19 - 53 % % Monos 7 4 - 13 % % Eos 1.9 1.0 - 7.0 % % Baso 1 0 - 1 % # Neutros 5.96 1.56 - 6.13 K/??L # Lymphs 1.99 1.18 - 3.74 K/??L # Monos 0.57 0.24 - 0.82 K/??L # Eos 0.17 0.04 - 0.54 K/??L # Baso 0.07 0.01 - 0.08 K/??L % Imm Grans 0.50 0.00 - 0.60 % # IG 0.04 0.00 - 0.05 K/uL Comprehensive metabolic panel Result Value Ref Range Sodium 139 136 - 146 meq/L Potassium 3.5 3.5 - 5.1 meq/L Chloride 106 102 - 112 meq/L CO2 24 21 - 32 meq/L Calcium 9.6 8.5 - 10.1 mg/dL Glucose 288 (H) 74 - 100 mg/dL BUN 10 7 - 22 mg/dL Creatinine 0.61 0.55 - 1.02 mg/dL BUN/Creatinine 16 8 - 20 Albumin 3.4 3.4 - 5.0 g/dL Alkaline Phosphatase 94 27 - 136 U/L ALT 21 12 - 78 U/L AST 20 5 - 37 U/L Total Bilirubin 0.3 0.2 - 1.3 mg/dL Protein, Total 6.8 6.4 - 8.2 gm/dL Anion Gap 13 9 - 20 A/G Ratio 1.0 (L) 1.1 - 2.5 Globulin 3.4 1.5 - 4.5 g/dL Osmolality Calc 287.1 mOsm/kg eGFR (mL/min/1.73m2) >60 >=60 mL/min/1.73m2 Magnesium Result Value Ref Range Magnesium 1.8 1.5 - 2.4 mg/dL High Sensitivity Troponin I Result Value Ref Range Troponin I High Sensitivity (pg/mL) 6.0 3 - 58.8 pg/mL PROBNP Result Value Ref Range ProBNP (pg/mL) 88 0 - 125 pg/mL D-dimer Result Value Ref Range D-Dimer, Quant (SJMS SJE) 555.30 (H) <=500.00 ng/mL FEU High Sensitivity Troponin I Result Value Ref Range Troponin I High Sensitivity (pg/mL) 6.6 3 - 58.8 pg/mL XR chest 1 view portable / bedside (Results Pending) ED Course as of 06/27/25 1904 Sat Jun 27, 2025 1543 ECG interpreted myself: Normal sinus rhythm. Low voltage QRS. Rate 91. No STEMI. [NM] 1543 Dr. Tripp: I saw the patient [id number]. I performed a substantive portion of the MDM. My differential diagnosis includes the following severe or life-threatening etiologies: ACS, musculoskeletal pain, pneumonia, pneumothorax, pulmonary embolus, heart failure. [NM] 1831 ECG interpreted myself: Normal sinus rhythm. PACs. Normal QRS. No STEMI. [NM] ED Course User Index [NM] Gustabo Tripp MD ED Heart Score Date and Time Another reason for the patient's symptoms was identified History ECG Age Risk factorsTroponin Total User 06/27/25 1540 -- 0 0 1 2 0 3 CR ECG 12 lead Date/Time: 06/27/2025 3:29 PM Performed by: Christina Franklin APRN Authorized by: Christina Franklin APRN ECG interpreted by ED Physician in the absence of a sports bookmaker: yes (XI) Previous ECG: Previous ECG: Compared to current Similarity: No change Rate: ECG rate: 91 ECG rate assessment: normal Rhythm: Rhythm: sinus rhythm QRS: QRS axis: Normal ST segments: ST segments: Normal ECG 12 lead Date/Time: 06/27/2025 6:24 PM Performed by: Christina Franklin APRN Authorized by: Christina Franklin APRN ECG interpreted by ED Physician in the absence of a sports bookmaker: yes (XI) Previous ECG: Previous ECG: Compared to current Similarity: No change Interpretation: Interpretation: normal Rate: ECG rate: 76 ECG rate assessment: normal Rhythm: Rhythm: sinus rhythm QRS: QRS axis: Normal ST segments: ST segments: Normal Medical Decision Making Amount and/or Complexity of Data Reviewed Labs: ordered. Radiology: ordered. ECG/medicine tests: ordered and independent interpretation performed. 64-year-old female presents to ER with complaints of chest pain. Patient presents to ER in no acutedistress. Differential diagnosis include not limited to ACS, arrhythmia, pulmonary embolism, hypervolemia, electrolyte disturbance, pneumonia, bronchitis, among others. Reviewed and personally interpreted chest x-ray with attending physician, Dr. Tripp showing chronicchanges without acute cardiopulmonary process. This is pending radiology overread. CBC,BNP,CMP,mag,initial trop nonactionable. D-dimer age-adjusted will within normal limits at 555.3, less than 640. Delta troponin and EKG nonactionable. Discussed all these findings with patient in room. Recommend oral rehydration, rest. Follow-up with cardiology this week for recheck of symptoms. Chest pain is reproducible with palpation and with range of motion, making this likely atypical in nature. Patient is aware of warning signs that would warrant return to the emergency department. She is agreeable to plan and patient is stable for discharge at this time. Assessment & Plan Clinical Impression Diagnosis Comment Added By Time Added Atypical chest pain Christina Franklin APRN 06/27/2025 7:03 PM Disposition Discharge [1] - 06/27/2025 7:03 PM New Prescriptions No medications on file Contact information for follow-up [facility] Find-a-Doc Relationship: PCP - [facility] Find-a-Doc [facility] [address] Next Steps: Schedule an appointment as soon as possible for a visit in 1 day(s) Instructions: your sports bookmaker Electronically Signed By Christina Franklin APRN 06/27/251903 Cosigned by Gustabo Tripp MD at 06/28/2025 7:04 AM EST D SUPERVISOR Associated attestation - Gustabo Tripp MD - 06/28/2025 6:04 AM FIELD SUPERVISOR This visit was performed by both the physician and an APC. I personally evaluated and examined thepatient. I performed all aspects of the MDM as documented. . documented in this encounter Plan of Treatment Not on file documented as of this encounter Procedures Procedure Name Priority Date/Time Associated Diagnosis Comments FS_MODEL_IP_ECG 12-LEAD STAT 06/27/2025 6:24 PM EDT HIGH SENSITIVITY TROPONIN I STAT 06/27/2025 6:18 PM EDT CBC W/ AUTO DIFF STAT 06/27/2025 4:24 PM EDT HIGH SENSITIVITY TROPONIN I STAT 06/27/2025 4:24 PM EDT PROBNP STAT 06/27/2025 4:24 PM EDT D-DIMER STAT 06/27/2025 4:24 PM EDT MAGNESIUM STAT 06/27/2025 4:24 PM EDT COMPREHENSIVE METABOLIC PANEL STAT 06/27/2025 4:24 PM EDT XR CHEST 1 VIEW PORTABLE / BEDSIDE STAT 06/27/2025 4:23 PM EDT FS_MODEL_IP_ECG 12-LEAD STAT 06/27/2025 3:17 PM EDT EKG-SCANNED 06/27/2025 documented in this encounter Results * ECG 12 lead (06/27/2025 6:24 PM EDT) SYSTOLIC BLOOD PRESSURE (MCT) 117 mmHg GE MUSE DIASTOLIC BLOOD PRESSURE (MCT) 61 mmHg GE MUSE VENTRICULAR RATE EKG/MIN 76 BPM GE MUSE ATRIAL RATE (MCT) 76 BPM GE MUSE RI Interval 140 ms GE MUSE QRS-INTERVAL (MSEC) 72 ms GE MUSE QT Interval 388 ms GE MUSE QTC Interval 436 ms GE MUSE P Rhodes 28 degrees GE MUSE R AXIS (MCT) 63 degrees GE MUSE T Wave Rhodes -166 degrees GE MUSE [place] Diagnosis Normal sinus rhythm with sinus arrhythmia ST & T wave abnormality, consider inferior ischemia ST & T wave abnormality, consider anterior ischemia Baseline artifact Abnormal ECG Confirmed by Tarah GALVAN SUZANNE ([id number]) on 06/29/2025 1:15:41 PM GE MUSE 06/27/2025 6:24 PM EDT 06/29/2025 1:15 PM EST [facility] Noemi GONZALES ECG ORDERABLES Final Resu lt GE MUSE * High Sensitivity Troponin I (06/27/2025 6:18 PM EDT) Pathologist [facility] Troponin I High Sensitivity (pg/mL) 6.6 3 - 58.8 pg/mL 06/27/2025 7:02 PM EDT [facility] Comment: Troponin Result (pg/mL) *Interpretation 3-58.8 *Normal; less than 99th percentile of normal range >58.8 *Abnormal; greater than 99th percentile of normal range Biotin specimen concentration >300 ng/mL may lead to falsely depressed results for patient samples. Do not use this test for renal dysfunction patients (eGFR <60) unless it is confirmed that the patient is not taking Biotin. Blood Venipuncture / Unknown 06/27/2025 6:18 PM EDT 06/27/2025 6:36 PM EDT [facility] LAB BLOOD ORDERABLES Final Result Performing Organization Address [facility] Co de Phone Number [facility] [address] [phone] * (ABNORMAL) D-dimer (06/27/2025 4:24 PM EDT) D-Dimer, Quant (SJMS SJE) 555.30(H) <=500.00 ng/mL FEU 06/27/2025 4:55 PM EDT [facility] Comment: A normal D-dimer result <500 ng/mL (FEU) has a negative predictive value of approximately 95% for the exclusion of acute pulmonary embolism (PE) or deep vein thrombosis when there is low or moderate pretest PE probability. D-dimer Normal Rates First trimester: 50-950 ng/mL (FEU) Second trimester: 302-1290 ng/mL (FEU) Third trimester: 130-1700 ng/mL (FEU) Blood Venipuncture / Unknown 06/27/2025 4:24 PM EDT 06/27/2025 4:24 PM EDT [facility] LAB BLOOD ORDERABLES Final Result Performing Organization Address [facility] Co de Phone Number [facility] [address] [phone] * PROBNP (06/27/2025 4:24 PM EDT) [facility] ProBNP (pg/mL) 88 0 - 125 pg/mL 06/27/2025 4:55 PM EDT [facility] Blood Venipuncture / Unknown 06/27/2025 4:24 PM EDT 06/27/2025 4:24 PM EDT Narrative [facility] - 06/27/2025 4:55 PM EDT Biotin supplements can cause clinically significant incorrect lab test results. The FDA has seen an increase in the number of reported adverse events related to biotin interference with lab tests. [facility] LAB BLOOD ORDERABLES Final Result Performing Organization Address [facility] de Phone Number [facility] [address] [phone] * High Sensitivity Troponin I (06/27/2025 4:24 PM EDT) [facility] Troponin I High Sensitivity (pg/mL) 6.0 3 - 58.8 pg/mL 06/27/2025 4:47 PM EDT [facility] Comment: Troponin Result (pg/mL) *Interpretation 3-58.8 *Normal; less than 99th percentile of normal range >58.8 *Abnormal; greater than 99th percentile of normal range Biotin specimen concentration >300 ng/mL may lead to falsely depressed results for patient samples. Do not use this test for renal dysfunction patients (eGFR <60) unless it is confirmed that the patient is not taking Biotin. Blood Venipuncture / Unknown 06/27/2025 4:24 PM EDT 06/27/2025 4:24 PM EDT [facility] Xiomyfreddy STUCCO APPLICATOR LAB BLOOD ORDERABLES Final Result [facility] [address] [phone] * Magnesium (06/27/2025 4:24 PM EDT) Magnesium 1.8 1.5 - 2.4 mg/dL 06/27/2025 4:55 PM EDT [facility] Blood Venipuncture / Unknown 06/27/2025 4:24 PM EDT 06/27/2025 4:24 PM EDT [facility] Final Result Performing Organization Address [facility]/ZIP Co de Phone Number [facility] [address] [phone] * (ABNORMAL) Comprehensive metabolic panel (06/27/2025 4:24 PM EDT) Sodium 139 136 - 146 meq/L 06/27/2025 4:55 PM EDT [facility] Potassium 3.5 3.5 - 5.1 meq/L 06/27/2025 4:55 PM EDT [facility] Chloride 106 102 - 112 meq/L 06/27/2025 4:55 PM EDT [facility] CO2 24 21 - 32 meq/L 06/27/2025 4:55 PM EDT [facility] Calcium 9.6 8.5 - 10.1 mg/dL 06/27/2025 4:55 PM EDT [facility] Glucose 288(H) 74 - 100 mg/dL 06/27/2025 4:55 PM EDT [facility] BUN 10 7 - 22 mg/dL 06/27/2025 4:55 PM EDT [facility] Creatinine 0.61 0.55 - 1.02 mg/dL 06/27/2025 4:55 PM EDT [facility] BUN/Creatinine 16 8 - 20 06/27/2025 4:55 PM EDT [facility] Albumin 3.4 3.4 - 5.0 g/dL 06/27/2025 4:55 PM EDT [facility] Alkaline Phosphatase 94 27 - 136 U/L 06/27/2025 4:55 PM EDT [facility] ALT 21 12 - 78 U/L 06/27/2025 4:55 PM EDT [facility] AST 20 5 - 37 U/L 06/27/2025 4:55 PM EDT [facility] Total Bilirubin 0.3 0.2 - 1.3 mg/dL 06/27/2025 4:55 PM EDT [facility] Protein, Total 6.8 6.4 - 8.2 gm/dL 06/27/2025 4:55 PM EDT [facility] Anion Gap 13 9 - 20 06/27/2025 4:55 PM EDT [facility] A/G Ratio 1.0(L) 1.1 - 2.5 06/27/2025 4:55 PM EDT [facility] Globulin 3.4 1.5 - 4.5 g/dL 06/27/2025 4:55 PM EDT [facility] Osmolality Calc 287.1 mOsm/kg 4:55 PM EDT [facility] eGFR (mL/min/1.73m2) >60 >=60 mL/min/1.7 3m2 06/27/2025 4:55 PM EDT [facility] Comment:ESTIMATED GFR IS NOT ACCURATE CREATININE CLEARANCE IN PREDICTING GLOMERULAR FILTRATION RATE. ESTIMATED GFR IS NOT APPLICABLE FOR DIALYSIS PATIENTS. Blood Venipuncture / Unknown 06/27/2025 4:24 PM EDT 06/27/2025 4:24 PM EDT us Christian Franklin APRN LAB BLOOD ORDERABLES Final Result [facility] [address] [place] [address], [facility] [phone] * (ABNORMAL) CBC with Auto Diff (06/27/2025 4:24 PM EDT) WBC 8.8 3.9 - 10.0 K/ L 06/27/2025 4:28 PM EDT [facility] RBC 4.51 3.93 - 6.08 M/ L 06/27/2025 4:28 PM EDT [facility] Hemoglobin 13.3 11.2 - 15.7 GM/DL 06/27/2025 4:28 PM EDT [facility] Hematocrit 39.9 34.1 - 44.9 % 06/27/2025 4:28 PM EDT [facility] MCV 89 79 - 95 fL 06/27/2025 4:28 PM EDT [facility] MCH 29.5 25.6 - 32.2 pg 06/27/2025 4:28 PM EDT [facility] MCHC 33.3 32.2 - 36.5 GM/DL 06/27/2025 4:28 PM EDT [facility] RDW 15.5(H) 11.6 - 14.4 % 06/27/2025 4:28 PM EDT [facility] Platelets 302 163 - 369 K/CU MM 06/27/2025 4:28 PM EDT [facility] MPV 10.2 9.4 - 12.4 fL 06/27/2025 4:28 PM EDT [facility] % Neutros 68 34 - 71 % 06/27/2025 4:28 PM EDT [facility] % Lymphs 23 19 - 53 % 06/27/2025 4:28 PM EDT [facility] % Monos 7 4 - 13 % 06/27/2025 4:28 PM EDT [facility] % Eos 1.9 1.0 - 7.0 % 06/27/2025 4:28 PM EDT [facility] % Baso 1 0 - 1 % 06/27/2025 4:28 PM EDT [facility] # Neutros 5.96 1.56 - 6.13 K/ L 06/27/2025 4:28 PM EDT [facility] # Lymphs 1.99 1.18 - 3.74 K/ L 06/27/2025 4:28 PM EDT [facility] # Monos 0.57 0.24 - 0.82 K/ L 06/27/2025 4:28 PM EDT [facility] # Eos 0.17 0.04 - 0.54 K/ L 06/27/2025 4:28 PM EDT [facility] # Baso 0.07 0.01 - 0.08 K/ L 06/27/2025 4:28 PM EDT [facility] % Imm Grans 0.50 0.00 - 0.60 % 06/27/2025 4:28 PM EDT [facility] # IG 0.04 0.00 - 0.05 K/uL 06/27/2025 4:28 PM EDT [facility] Blood Venipuncture / Unknown 06/27/2025 4:24 PM EDT 06/27/2025 4:24 PM EDT Narrative [facility] - 06/27/2025 4:28 PM EDT When CBC w/ Auto Diff is ordered the lab will add a Manual Differential as a quality check at no additional charge if: Lymphocytes greater than seventy five percent with normal or increased WBC Monocytes greater than Fifteen percent Basophil greater than four percent Bands >10% or several immature myeloids are seen on scan Blast? Flag noted Atypical Lymph flag noted Christina Franklin APRN LAB BLOOD ORDERABLES Final Result [facility] [address] [phone] * XR chest 1 view portable / bedside (06/27/2025 4:23 PM EDT) Anatomical Region Laterality Modality X-Ray 06/28/2025 10:4 0 AM EST Impressions 06/28/2025 10:42 AM EST Atelectasis as above. Continued follow-up recommended. Images reviewed, interpreted, and dictated by Dr. Alana Padilla. Transcribed by Romelia Zepeda PA-C. Narrative 06/28/2025 10:42 AM EST PORTABLE CHEST 06/27/2025 3:32 PM HISTORY: Precordial chest pain. COMPARISON: March 10, 2025. FINDINGS: The heart is normal in size . The mediastinum is unremarkable . There is bibasilar atelectasis. There is no pneumothorax . The osseous structures are unremarkable . Shunt tubing overlies the right chest. Procedure Note Gunnar Padilla MD - 06/28/2025 PORTABLE CHEST 06/27/2025 3:32 PM HISTORY: Precordial chest pain. COMPARISON: March 10, 2025. FINDINGS: The heart is normal in size . The mediastinum is unremarkable . There is bibasilar atelectasis. There is no pneumothorax . The osseous structures are unremarkable . Shunt tubing overlies the right chest. IMPRESSION: Atelectasis as above. Continued follow-up recommended. Images reviewed, interpreted, and dictated by Dr. Alana Padilla. Transcribed by Romelia Zepeda PA-C. Christina Franklin APRN IMG DIAGNOSTIC IMAGING ORD ERABLES Final Result * ECG 12 lead (06/27/2025 3:17 PM EDT) VENTRICULAR RATE EKG/MIN 91 BPM GE MUSE ATRIAL RATE (MCT) 91 BPM GE MUSE RI Interval 140 ms GE MUSE QRS-INTERVAL (MSEC) 72 ms GE MUSE QT Interval 352 ms GE MUSE QTC Interval 432 ms GE MUSE P Rhodes 40 degrees GE MUSE R AXIS (MCT) 59 degrees GE MUSE T Wave Rhodes -98 degrees GE MUSE [place] Diagnosis Normal sinus rhythm Low voltage QRS Nonspecific ST and T wave abnormality Baseline artifact Abnormal ECG Confirmed by Tarah GALVAN SUZANNE ([id number]) on 06/29/2025 1:14:28 PM GE MUSE 06/27/2025 3:17 PM EDT 06/29/2025 1:14 PM EST Christina Franklin APRN ECG ORDERABLES Final Resu lt GE MUSE * EKG-SCANNED (06/27/2025) Narrative 06/27/2025 Ordered by an unspecified provider. us Default Scanning Provider SCAN ORDERS Final Result documented in this encounter Visit Diagnoses Diagnosis Atypical chest pain- Primary Other chest pain documented in this encounter Care Teams Resource Engineer Relationship Specialty Start Date End Date [facility], [facility] [place] [address] PCP - General 06/27/25 documented as of this encounter
[2025-08-12 14:52] LABS: Hematocrit 50.2 % (37.0-47.0); Hemoglobin 15.7 g/dL (12.2-16.2); Immature Granulocytes % 1.3 %; Mean Corpuscular HGB Conc 31.3 g/dL (31.8-35.4); Mean Corpuscular Hemoglobin 28.2 pg (27.0-31.2); Mean Corpuscular Volume 90.1 fl (81-99); Nucleated Red Blood Cells % 0 %; Platelet Count 297 K/mm3 (142-424); Red Blood Count 5.57 M/mm3 (4.20-5.40); Red Cell Distribution Width-SD 49.1 fL; White Blood Count 10.0 K/mm3 (4.8-10.8)
[2025-08-12 15:04] LABS: Alanine Aminotransferase 22 U/L (12-78); Albumin Level 5.4 g/dl (3.5-5.0); Albumin/Globulin Ratio 1.7 (1.1-1.8); Alkaline Phosphatase 115 U/L (38-126); Anion Gap 18.7 mEq/L (5-15); Aspartate Amino Transferase 26 U/L (14-36); Bilirubin,Total 0.6 mg/dl (0.2-1.3); Blood Urea Nitrogen 15 mg/dl (7-17); Calcium 10.7 mg/dl (8.4-10.2); Carbon Dioxide 24 mmol/L (22.0-30.0); Chloride 99 mmol/L (98-107); Creatinine,Serum 0.60 mg/dl (0.52-1.04); Estimated Glomerular Filt Rate 101 ml/min (>60); GFR (African American) 122 ML/MIN (>60); Globulin 3.2 g/dL (1.3-3.2); Glucose 220 mg/dl (74-100); Potassium 4.7 mmoL/L (3.5-5.1); Sodium 137 mmol/L (136-145); Total Protein,Serum 8.6 g/dl (6.3-8.2)
[2025-08-12 15:19] LABS: 25-OH Vitamin D, Total 39.3 ng/mL (30-100)
[2025-08-12 16:33] LABS: Hemoglobin A1C 8.8 % (4.0-6.0)
--- OUTSIDE RECORDS SUMMARY | 2025-08-12 20:09 | XMS_ITS | Encounter Summary ---
Author Organization [employer] ([place], [place], [place], [place], [place]) Address [address] [place] [address] Care Team Providers Care Diamond Merchant Name Role Phone Igor Meyers MD Primary Care Provider [phone] Provider, Not In System SALES REPRESENTATIVE [employer]ICE Primary Care Provid er Unavailable [facility], [facility] Primary Care Provider [facility], [facility] Primary Care Provider [facility], Provider Not In The System Primary Care Provider Unavailable [facility], [facility] Primary Care Provider Encounter Details Date Type Department Care Team (Late st Contact Info) Description 07/27/2019 Transcribed Document [facility] [place] [facility] [place] [address] ProviderRufino MD [address] [place] [address] Social History Tobacco Use Types Packs/Day Years Used Date Smoking Tobacco: Never Assessed Comments Unknown Sex and Gender Information Value Date Recorded Sex Assigned at Not on file Legal Sex Female 1:33 PM CDT Gender Identity Not on file Sexual Orientation Not on file documented as of this encounter Miscellaneous Notes * Cerner Conversion Note - Rufino ProviderMD - 07/27/2019 8:01 PM BOILER BLOWER Pain Assessment Entered On: 07/27/2019 21:27 EST Performed On: 07/27/2019 21:27 EST by Pastora Fajardo RN Intervention Information: acetaminophen-HYDROcodone Performed by Pastora Fajardo RN on 07/27/2019 20:15:00 EST acetaminophen-HYDROcodone,1Tab Oral Pain Assessment Pain Assessment : Follow-up assessment Pain Scale Used : FACES Pastora Fajardo, RN - 07/27/2019 21:27 EST Pain Scale Intensity : 4 Pastora Fajardo RN - 07/27/2019 21:27 EST Image 4 - Images currently included in the form version of this document have not been included in the text rendition version of the form. Electronically signed by [facility], [facility] Conversion Hat Copyist Cerner at 12/10/2022 6:50 PM CDT documented in this encounter Plan of Treatment Not on file documented as of this encounter Visit Diagnoses Not on filedocumented in this encounter Care Teams Diamond Merchant Relationship Specialty Start Date End Date Igor Meyers MD [address] [place] [id number] PCP - General Family Medicine 11/23/22 08/22/23 Provider, Not In System, CHRISTIAN SALAZAR PCP - General 08/23/23 08/27/24 [facility], [facility]Doc [place], [place] [id number] PCP - General 08/28/24 11/06/24 [facility], [facility] [place] [address] PCP - General 11/07/24 02/22/25 [facility], Provider Not In The System, [place] [address] PCP - General 02/23/25 06/26/25 [facility], [facility] [place], [place] [id number] PCP - General 06/27/25 documented as of this encounter
--- OUTSIDE RECORDS SUMMARY | 2025-08-12 20:09 | XMS_ITS | Encounter Summary ---
Author Organization [employer] ([place], [place], [place], [place], [place]) Address [address] [place] [address] Care Team Providers Care [employer] Name Role Phone Igor Meyers MD Primary Care Provider [phone] Provider, Not In System [employer] Primary Care Provid er Unavailable [facility], Find-A-Doc Primary Care Provider [facility], [facility] Primary Care Provider [facility], Provider Not In The System Primary Care Provider Unavailable [facility], Find-A-Doc Primary Care Provider Encounter Details Date Type Department Care Team (Late st Contact Info) Description 07/27/2019 Transcribed Document [facility] [place] [address] ProviderRufino MD [address] [place] [id number] Social History Tobacco Use Types Packs/Day Years Used Date Smoking Tobacco: Never Assessed Comments Unknown Sex and Gender Information Value Date Recorded Sex Assigned at Not on file Legal Sex Female 1:33 PM CDT Gender Identity Not on file Sexual Orientation Not on file documented as of this encounter Miscellaneous Notes * Cerner Conversion Note - Rufino ProviderMD - 07/27/2019 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 If you had special tests, such as EKG???s or X-rays, the interpretation of your tests given to you by the Emergency Department Physician is a preliminary report. Some fractures and illnesses fail to show up on preliminary tests. These will be reviewed again and we will call you if there are any new suggestions. If your symptoms continue notify your physician. After you leave, you should follow the instructions provided. What to do next Follow-Up Appointments Follow Up with [facility] When Within As needed Comments Patient stated she/ is currently established with Dr. Sebastian Meyers. Feel free to contact our Patient Resource Center at [phone] for any future Physician scheduling needs. Follow Up with UNKNOWN PHY When Within 2 to 3 days Follow Up with Follow up with primary care provider When Within 2 to 3 days Follow Up with Return to emergency department When Within As needed Comments Return if condition worsens Follow Up with BENJI MORRIS When Within 2 to 3 days Where: [address] [facility] [address] [place] [address]- Business (1) Allergies sulfADIAZINE (itching) sulfonamides (Rash, Itching) Immunizations This Visit No Immunizations Found Medications What How Much When Instructions Next Dose New lidocaine topical (Lidoderm 5% topical film) 1 Patch(es) TransDermal Every Day Duration: 10 Day(s) Printed Prescription The home medications listed are only as accurate as the information you provided. Please continue taking all of your medications prescribed by your Primary Care Provider unless specifically told to change or discontinue the medication. Please direct any questions regarding your home medications to your Primary Care Provider. Take your medications faithfully. Do NOT skip medication. Do NOT stop taking medications without the direction of a physician. Carry a list of your medications with you at all times, and take this medication list with you to your first follow up visit. Report any side effects. Avoid herbal remedies unless discussed with your physician. As part of your treatment plan, your physician may have prescribed a limited course of a controlled substance. This medication may be given to help people with moderate or severe pain or for other medical conditions, but there are risks involved with treatment. Common side effects may include nausea, constipation, drowsiness, sweating, itching, dry mouth, and rash. More serious side effects may include cognitive and motor impairment, like problems with thinking, concentrating, alertness, and movement (e.g. slowed reflexes), and driving and operating heavy machinery can be dangerous. It is important for you to talk to your physician if you have these side effects or questions. These controlled substances can produce physical dependence and be habit-forming if taken for an extended period of time, which means that the body has gotten used to them and may experience withdrawal symptoms if they are abruptly stopped. Withdrawal symptoms can include runny nose, sweating, goose bumps, diarrhea, abdominal cramping, rapid heartbeat, difficulty sleeping, and nervousness. Please dispose of unused and medications per pharmacy guidance. Test Results Laboratory or Other Results This Visit (last charted value for your 07/27/2019 visit) Urinalysis 07/27/2019 8:10 PM Ur RBC: 2-5 /HPF Urine Nitrite: Negative Urine Leukocyte Esterase: Small Urine Appearance: Clear Urine Glucose Dipstick: Negative Urine Blood Dipstick: Trace Urine Type: U CleanCatch Urine Urobilinogen Dipstick: 0.2 EU/dL -- Normal range between ( 0.2 and 1.0 ) Urine Protein Dipstick: Negative Ur Bacteria: 1+ Ur Squamous Epithelial Cells: 2-5 /HPF Urine Color: Yellow Ur WBC: 2-5 /HPF Urine Ketones Dipstick: Negative Ur Mucous: 2+ Urine pH Dipstick: 5.5 -- Normal range between ( 6.0 and 8.0 ) Urine Bilirubin Dipstick: Negative Urine Specific [place]: 1.026 -- Normal range between ( 1.005 and 1.030 ) Toxicology 07/27/2019 8:10 PM UDS Amp: Negative UDS Mona: Negative UDS Benzo: Negative UDS Byron: Negative UDS Meth: Negative UDS Opi: Negative UDS Oxy: Negative UDS PCP: Negative UDS TCA: Negative UDS THC: Negative Buprenorphine Screen, Urine: Negative Meperidine Screen, Urine: Negative Tramadol Screen, Urine: Negative Heroin Metab (6AM) by LC-MS/MS, Urine: Negative Carisoprodol Screen, Urine: Negative SpGravity, Urine: 1.031 Propoxyphene, Urine: Negative UDS pH: 6.2 Fentanyl, Urine: Negative UDS Creatinine, Toxicology: 144.5 mg/dL [employer] Hypertension Hypertension, commonly called high blood pressure, is when the force of blood pumping through the arteries is too strong. The arteries are the blood vessels that carry blood from the heart throughout the body. Hypertension forces the heart to work harder to pump blood and may cause arteries to become narrow or stiff. Having untreated or uncontrolled hypertension can cause heart attacks, strokes, kidney disease, and other problems. A blood pressure reading consists of a higher number over a lower number. Ideally, your blood pressure should be below 120/80. The first ( top ) number is called the systolic pressure. It is a measure of the pressure in your arteries as your heart beats. The second ( bottom ) number is called the diastolic pressure. It is a measure of the pressure in your arteries as the heart relaxes. What are the causes? The cause of this condition is not known. What increases the risk? Some risk factors for high blood pressure are under your control. Others are not. Factors you can change ??? Smoking. ??? Having type 2 diabetes mellitus, high cholesterol, or both. ??? Not getting enough exercise or physical activity. ??? Being overweight. ??? Having too much fat, sugar, calories, or salt (sodium) in your diet. ??? Drinking too much alcohol. Factors that are difficult or impossible to change ??? Having chronic kidney disease. ??? Having a family history of high blood pressure. ??? Age. Risk increases with age. ??? Race. You may be at higher risk if you are -Micron[place]. ??? Gender. Men are at higher risk than women before age 45. After age 65, women are at higher risk than men. ??? Having obstructive sleep apnea. ??? Stress. What are the signs or symptoms? Extremely high blood pressure (hypertensive crisis) may cause: ??? Headache. ??? Anxiety. ??? Shortness of breath. ??? Nosebleed. ??? Nausea and vomiting. ??? Severe chest pain. ??? Jerky movements you cannot control (seizures). How is this diagnosed? This condition is diagnosed by measuring your blood pressure while you are seated, with your arm resting on a surface. The cuff of the blood pressure monitor will be placed directly against the skin of your upper arm at the level of your heart. It should be measured at least twice using the same arm. Certain conditions can cause a difference in blood pressure between your right and left arms. Certain factors can cause blood pressure readings to be lower or higher than normal (elevated) for a short period of time: ??? When your blood pressure is higher when you are in a health care provider's office than when you are at home, this is called white coat hypertension. Most people with this condition do not need medicines. ??? When your blood pressure is higher at home than when you are in a health care provider's office, this is called masked hypertension. Most people with this condition may need medicines to control blood pressure. If you have a high blood pressure reading during one visit or you have normal blood pressure with other risk factors: ??? You may be asked to return on a different day to have your blood pressure checked again. ??? You may be asked to monitor your blood pressure at home for 1 week or longer. If you are diagnosed with hypertension, you may have other blood or imaging tests to help your health care provider understand your overall risk for other conditions. How is this treated? This condition is treated by making healthy lifestyle changes, such as eating healthy foods, exercising more, and reducing your alcohol intake. Your health care provider may prescribe medicine if lifestyle changes are not enough to get your blood pressure under control, and if: ??? Your systolic blood pressure is above 130. ??? Your diastolic blood pressure is above 80. Your personal target blood pressure may vary depending on your medical conditions, your age, and other factors. Follow these instructions at home: Eating and drinking ??? Eat a diet that is high in fiber and potassium, and low in sodium, added sugar, and fat. An example eating plan is called the DASH (Dietary Approaches to Stop Hypertension) diet. To eat this way: ? Eat plenty of fresh fruits and vegetables. Try to fill half of your plate at each meal with fruits and vegetables. ? Eat whole grains, such as whole wheat pasta, brown rice, or whole grain bread. Fill about one quarter of your plate with whole grains. ? Eat or drink low-fat dairy products, such as skim milk or low-fat yogurt. ? Avoid fatty cuts of meat, processed or cured meats, and poultry with skin. Fill about one quarter of your plate with lean proteins, such as fish, chicken without skin, beans, eggs, and tofu. ? Avoid premade and processed foods. These tend to be higher in sodium, added sugar, and fat. ??? Reduce your daily sodium intake. Most people with hypertension should eat less than 1,500 mg of sodium a day. ??? Limit alcohol intake to no more than 1 drink a day for non women and 2 drinks a day for men. One drink equals 12 oz of beer, 5 oz of wine, or 1?? oz of hard liquor. Lifestyle ??? Work with your health care provider to maintain a healthy body weight or to lose weight. Ask what an ideal weight is for you. ??? Get at least 30 minutes of exercise that causes your heart to beat faster (aerobic exercise) most days of the week. Activities may include walking, swimming, or biking. ??? Include exercise to strengthen your muscles (resistance exercise), such as pilates or lifting weights, as part of your weekly exercise routine. Try to do these types of exercises for 30 minutes at least 3 days a week. ??? Do not use any products that contain nicotine or tobacco, such as cigarettes and e-cigarettes. If you need help quitting, ask your health care provider. ??? Monitor your blood pressure at home as told by your health care provider. ??? Keep all follow-up visits as told by your health care provider. This is important. Medicines ??? Take ousf-zhh-qoxsmrd and prescription medicines only as told by your health care provider. Follow directions carefully. Blood pressure medicines must be taken as prescribed. ??? Do not skip doses of blood pressure medicine. Doing this puts you at risk for problems and can make the medicine less effective. ??? Ask your health care provider about side effects or reactions to medicines that you should watch for. Contact a health care provider if: ??? You think you are having a reaction to a medicine you are taking. ??? You have headaches that keep coming back (recurring). ??? You feel dizzy. ??? You have swelling in your ankles. ??? You have trouble with your vision. Get help right away if: ??? You develop a severe headache or confusion. ??? You have unusual weakness or numbness. ??? You feel faint. ??? You have severe pain in your chest or abdomen. ??? You vomit repeatedly. ??? You have trouble breathing. Summary ??? Hypertension is when the force of blood pumping through your arteries is too strong. If this condition is not controlled, it may put you at risk for serious complications. ??? Your personal target blood pressure may vary depending on your medical conditions, your age, and other factors. For most people, a normal blood pressure is less than 120/80. ??? Hypertension is treated with lifestyle changes, medicines, or a combination of both. Lifestyle changes include weight loss, eating a healthy, low-sodium diet, exercising more, and limiting alcohol. This information is not intended to replace advice given to you by your health care provider. Make sure you discuss any questions you have with your health care provider. Document Released: 08/13/2006 Document Revised: 07/11/2017 Document Reviewed: 07/11/2017 [employer] Interactive Patient Education ?? 2019 [employer]. Acute Back Pain, Adult Acute back pain is sudden and usually short-lived. It is often caused by an injury to the muscles and tissues in the back. The injury may result from: ??? A muscle or ligament getting overstretched or torn (strained). Ligaments are tissues that connect bones to each other. Lifting something improperly can cause a back strain. ??? Wear and tear (degeneration) of the spinal disks. Spinal disks are circular tissue that provides cushioning between the bones of the spine (vertebrae). ??? Twisting motions, such as while playing sports or doing yard work. ??? A hit to the back. ??? Arthritis. You may have a physical exam, lab tests, and imaging tests to find the cause of your pain. Acute back pain usually goes away with rest and home care. Follow these instructions at home: Managing pain, stiffness, and swelling ??? Take hmse-qsd-dlsledl and prescription medicines only as told by your health care provider. ??? Your health care provider may recommend applying ice during the first 24???48 hours after your pain starts. To do this: ? Put ice in a plastic bag. ? Place a towel between your skin and the bag. ? Leave the ice on for 20 minutes, 2???3 times a day. ??? If directed, apply heat to the affected area as often as told by your health care provider. Use the heat source that your health care provider recommends, such as a moist heat pack or a heating pad. ? Place a towel between your skin and the heat source. ? Leave the heat on for 20???30 minutes. ? Remove the heat if your skin turns bright red. This is especially important if you are unable to feel pain, heat, or cold. You have a greater risk of getting burned. Activity ??? Do not stay in bed. Staying in bed for more than 1???2 days can delay your recovery. ??? Sit up and stand up straight. Avoid leaning forward when you sit, or hunching over when you stand. ? If you work at a desk, sit close to it so you do not need to lean over. Keep your chin tucked in. Keep your neck drawn back, and keep your elbows bent at a right angle. Your arms should look like the letter L. ? Sit high and close to the steering wheel when you drive. Add lower back (lumbar) support to your car seat, if needed. ??? Take short walks on even surfaces as soon as you are able. Try to increase the length of time you walk each day. ??? Do not sit, drive, or internal wholesaler one place for more than 30 minutes at a time. Sitting or standing for long periods of time can put stress on your back. ??? Do not drive or use heavy machinery while taking prescription pain medicine. ??? Use proper lifting techniques. When you bend and lift, use positions that put less stress on your back: ? Bend your knees. ? Keep the load close to your body. ? Avoid twisting. ??? Exercise regularly as told by your health care provider. Exercising helps your back heal faster and helps prevent back injuries by keeping muscles strong and flexible. ??? Work with a physical therapist to make a safe exercise program, as recommended by your health care provider. Do any exercises as told by your physical therapist. Lifestyle ??? Maintain a healthy weight. Extra weight puts stress on your back and makes it difficult to have good posture. ??? Avoid activities or situations that make you feel anxious or stressed. Stress and anxiety increase muscle tension and can make back pain worse. Learn ways to manage anxiety and stress, such as through exercise. General instructions ??? Sleep on a firm mattress in a comfortable position. Try lying on your side with your knees slightly bent. If you lie on your back, put a pillow under your knees. ??? Follow your treatment plan as told by your health care provider. This may include: ? Cognitive or behavioral therapy. ? Acupuncture or massage therapy. ? Meditation or yoga. Contact a health care provider if: ??? You have pain that is not relieved with rest or medicine. ??? You have increasing pain going down into your legs or buttocks. ??? Your pain does not improve after 2 weeks. ??? You have pain at night. ??? You lose weight without trying. ??? You have a fever or chills. Get help right away if: ??? You develop new bowel or bladder control problems. ??? You have unusual weakness or numbness in your arms or legs. ??? You develop nausea or vomiting. ??? You develop abdominal pain. ??? You feel faint. Summary ??? Acute back pain is sudden and usually short-lived. ??? Use proper lifting techniques. When you bend and lift, use positions that put less stress on your back. ??? Take dtwn-bkp-urlwmbq and prescription medicines and apply heat or ice as directed by your health care provider. This information is not intended to replace advice given to you by your health care provider. Make sure you discuss any questions you have with your health care provider. Document Released: 08/13/2006 Document Revised: 03/27/2018 Document Reviewed: 03/27/2018 [employer] Interactive Patient Education ?? 2019 [employer] Emergency Awareness and Preventative Care STROKE is an EMERGENCY Every Minute Counts Act FAST and Check for these signs: FACE Does the face look uneven? ARM Does one arm drift down? SPEECH Does their speech sound strange? TIME Call at any sign of stroke Stroke Risk Factors Atrial Fibrillation (irregular heartbeat) Diabetes Family history of stroke Heart Disease Heavy alcohol use High Blood Pressure High Cholesterol Physical inactivity and obesity Smoking Cigarette Smoking The facts are clear, cigarette smoking will shorten your life. Smoking can cause many illnesses along the way. As a healthcare provider, we recommend that you stop smoking. Assistance with quitting is available by contacting 9-633-OFHV-NOW. This is a free resource providing counseling, support, and referral. Or you may contact your personal physician. National Suicide Prevention Lifeline: The National Suicide Prevention Lifeline is a national network of local crisis centers that provides free and confidential emotional support to people in suicidal crisis or emotional distress 24 hours a day, 7 days a week. Don't Wait! Stop a Heart Attack Before it Starts What is a heart attack? A heart attack is damage or to a part of the heart from severely decreased or lack of blood flow to the heart. Over time, arteries can become narrow from the buildup of fat and cholesterol, which is called plaque. The plaque can rupture causing a blood clot to form. When the blood clot forms, the artery can become severely narrowed or completely blocked, causing a heart attack. Heart attack is the leading cause of in the [place]. 85% of muscle damage occurs within the first 2 hours. Delay in the recognition of heart attack symptoms increases the chances of . Know the early symptoms of a heart attack: Nausea Feeling of fullness in chest Jaw Pain Pain that travels down one or both arms Fatigue/being tired Anxiety Back Pain Chest pressure, squeezing, or discomfort Shortness of breath Sweating, or a cold sweat Feeling of impending doom There are unusual signs of a heart attack, too! Women, the elderly, and diabetics may present with atypical symptoms: Fainting/dizziness Weakness Confusion Risk Factors for a Heart Attack Some heart disease risk factors, such as age and family history, cannot be changed. Others, like smoking and lack of exercise, can be changed. Smoking High Cholesterol High Blood Pressure Family History Obesity Age Gender (Males are at higher risk) Lack of Exercise Diabetes Diet Stress Excessive Alcohol Intake If you or someone you know is experiencing the signs and symptoms of a heart attack, DON???T DELAY. Call immediately and seek help. If someone collapses, perform CPR! Do not attempt to drive if you are having symptoms of heart attack. Hands-Only CPR Why Hands-Only CPR? Hands-Only CPR has been shown to be as effective as conventional CPR for cardiac arrests that occur outside of a hospital. Survival depends on immediately receiving CPR from someone nearby. How do you perform Hands-Only CPR? There are two easy steps: Call if you see a teen or adult collapse Push hard and fast in the center of the chest at a beat of 100 beats per minute. Save a life! 4 WAYS TO GET AHEAD OF SEPSIS SEPSIS is a MEDICAL EMERGENCY. Time matters! Infections put you and your family at risk for a life-threatening condition called sepsis. Sepsis is the body's extreme response to an infection. It is life-threatening, and without timely treatment, sepsis can rapidly lead to tissue damage, organ failure, and . Sepsis happens when an infection you already have-in your skin, lungs, urinary tract or somewhere else-triggers a chain reaction throughout your body. 1 PREVENT INFECTIONS Take good care of chronic conditions. Talk to your doctor about getting the recommended vaccines. 2 PRACTICE GOOD HYGIENE Wash your hands frequently. Keep cuts or open sores clean and covered until they are healed. 3 KNOW THE SYMPTOMS Confusion or disorientation Shortness of breath High heart rate Fever, shivering, or feeling very cold Extreme pain or discomfort Clammy or sweaty skin 4 ACT FAST Get medical care IMMEDIATELY if you suspect sepsis or if you have an infection that is not getting better or is getting worse. To learn more about sepsis and how to prevent infections, visit www.cdc.gov/sepsis. The examination and treatment you have received in the Emergency Department has been done to provide an appropriate evaluation and stabilizing treatment on an emergency basis only. Given the limited resources, it is not meant to be a substitute for complete medical care. The follow-up doctor you named will receive a copy of your records and all test reports. IT IS IMPORTANT THAT YOU SCHEDULE A FOLLOW-UP APPOINTMENT AND ARE RE-EVALUATED. You should report any new complaints, symptoms, or remaining problems at that time. IT IS IMPOSSIBLE FOR THE EMERGENCY DEPARTMENT TO RECOGNIZE AND TREAT ALL ELEMENTS OF INJURY OR ILLNESS IN A SINGLE VISIT. If you have been referred to a specialist physician, it means that we believe you may have a condition that requires the expertise of a specialist. These physicians work in partnership with the hospital and have agreed to see referred patients in their office for further evaluation. KEEP IN MIND THAT THE SPECIALIST HAS HIS/HER OWN OFFICE POLICIES WHICH MAY REQUIRE PROPER INSURANCE OR PAYMENT UP FRONT BEFORE THE SPECIALIST WILL SEE YOU. It is your responsibility to call the specialist physician to make an appointment. We do not have the ability to refer patients to specialists/physicians that work with specific insurance companies. Please be advised that all financial charges or billing practices are determined by that practice, not the hospital. If your insurance company requires that you see a specialist from their approved list, it is your responsibility to contact your insurance company to make those arrangements. It is also your responsibility to follow any other requirements of your insurance company necessary to obtain coverage for claims submitted. We will bill your insurance; however, you are responsible today for any co-pay amounts. You will receive a separate bill for any services you may have received including: emergency, radiology, or pathology physicians. Patient Name:RANDLE, ROBERTO BUCHANAN I have received this information and was given the opportunity to ask questions. Patient/Area Supervisor Name: Patient/Area Supervisor Signature: Relationship to Patient: Clinician/Hospital Area Supervisor Signature: Please Provide a Telephone Number Where You Can Be Reached: Is it Permissible To Leave a Message? Date: Electronically signed by Alphonse, [facility] Conversion Tankage Grinder Operator Cerner at 12/10/2022 6:37 PM CDT documented in this encounter Plan of Treatment Not on file documented as of this encounter Visit Diagnoses Not on filedocumented in this encounter Care Teams Aerospace Control And Warning Systems Relationship Specialty Start Date End Date Igor Meyers MD [address] [place] [address] PCP - General Family Medicine 11/23/22 08/22/23 Provider, Not In System, CHRISTIAN SALAZAR PCP - General 08/23/23 08/27/24 [facility] Connection, Find-A-Doc [facility] Find-a-Doc [place], [place] [id number] PCP - General 08/28/24 11/06/24 [facility] Connection, [facility]A-Doc [facility] Find-a-Doc [place], [place] [id number] PCP - General 11/07/24 02/22/25 [facility], Provider Not In The System, [address] [place] [address] PCP - General 02/23/25 06/26/25 [facility] Connection, Find-A-Doc [facility] Find-a-Doc [place], [place] [id number] PCP - General 06/27/25 documented as of this encounter
--- OUTSIDE RECORDS SUMMARY | 2025-08-12 20:09 | XMS_ITS | Encounter Summary ---
Author Organization [employer] ([place], [place], [place], [place], [place]) Address [address] [place] [address] Care Team Providers Care File Drawer Finisher Name Role Phone Igor Meyers MD Primary Care Provider [phone] Provider, Not In System POSTDOCTORAL RESEARCH FELLOW Primary Care Provid er Unavailable [facility] Connection, Find-A-Doc Primary Care Provider [facility] Connection, Find[facility]A-Doc Primary Care Provider [facility], Provider Not In The System Primary Care Provider Unavailable [facility] Connection, Find-A-Doc Primary Care Provider Encounter Details Date Type Department Care Team (Late st Contact Info) Description 06/20/2019 Transcribed Document [facility] [place] Family [place] [facility] [place] [address] ProviderRufino MD [address] [place] [address] Social History Tobacco Use Types Packs/Day Years Used Date Smoking Tobacco: Never Assessed Comments Unknown Sex and Gender Information Value Date Recorded Sex Assigned at Not on file Legal Sex Female 1:33 PM CDT Gender Identity Not on file Sexual Orientation Not on file documented as of this encounter Miscellaneous Notes * Cerner Conversion Note - Rufino ProviderMD - 06/20/2019 5:50 PM CDT [address] [address] ROBERTO RANDLE :1960 Visit Time:06/20/2019 Your Visit Summary Your Care Team Primary Provider: PAMELA DANG PA-C Secondary Provider: Your Diagnosis Back pain Constipation Low back pain Medical Information You may obtain a copy [...] do next Follow-Up Appointments Follow Up with Patient Resource Center When Within As needed Comments Patient is established with Dr. Meyers. For assistance in the future with finding a new primary care physician or scheduling a specialist please contact the Patient Resource Center at [phone]. See your family doctor in 3-5 days. Try heat to your lower back and rest. Discuss physical therapy with family doctor. try not to take NORCO unless you absolutely needit. And do not take it unless you are also taking 1-2 (or even more if needed) doses of miralax per day. Plus a fiber supplements and plenty of water. Return to the ER for new or worsening symptoms such as numbness around groin, trouble moving legs, bowel or bladder problems, fever. Follow Up with UNKNOWN PHY When Within 2 to 3 days Allergies sulfADIAZINE (itching) sulfonamides (Rash, Itching) Immunizations This Visit No Immunizations Found Medications What How Much When Instructions Next Dose New acetaminophen-hydrocodone (Liebenthal 5 mg-325 mg oral tablet) 1 Tablet(s) Oral Two Times A Day as needed for for pain take with 1-2 daily doses miralax Printed Prescription The home medications listed are [...] This Visit (last charted value for your 06/20/2019 visit) Hematology 06/20/2019 2:45 PM WBC: 12.0 K/uL -- Normal range between ( 3.9 and 10.0 ) RBC: 4.98 Million/uL -- Normal range between ( 3.93 and 5.22 ) Hct: 42.7 % -- Normal range between ( 34.1 and 44.9 ) Hgb: 14.3 Gram/dL -- Normal range between ( 11.2 and 15.7 ) Platelet Count: 289 K/uL -- Normal range between ( 163 and 369 ) MCH: 28.7 pg -- Normal range between ( 25.6 and 32.2 ) MCHC: 33.5 Gram/dL -- Normal range between ( 32.3 and 36.5 ) MCV: 85.7 fL -- Normal range between ( 79.0 and 94.8 ) Slide Review: No Eos %: 1.7 % -- Normal range between ( 1.0 and 7.0 ) [place] #: 0.80 K/uL -- Normal range between ( 0.24 and 0.82 ) Eos #: 0.20 K/uL -- Normal range between ( 0.04 and 0.54 ) [place] %: 6.7 % -- Normal range between ( 4.7 and 12.5 ) Baso %: 0.5 % -- Normal range between ( 0.0 and 1.0 ) Baso #: 0.06 K/uL -- Normal range between ( 0.01 and 0.08 ) RDW: 13.9 % -- Normal range between ( 11.6 and 14.4 ) Neut %: 60.1 % -- Normal range between ( 34.0 and 71.0 ) Neut #: 7.22 K/uL -- Normal range between ( 1.56 and 6.13 ) Lymph %: 30.1 % -- Normal range between ( 19.3 and 53.0 ) Lymph #: 3.61 K/uL -- Normal range between ( 1.18 and 3.74 ) MPV: 10.5 fL -- Normal range between ( 9.4 and 12.4 ) IG#: 0 x10(3)/uL IG%: 1 % -- Normal range between ( 0 and 1 ) Urinalysis 06/20/2019 2:45 PM Ur RBC: 0-2 /HPF Urine Nitrite: Negative Urine Leukocyte Esterase: Negative Ur Epithelial Cells: 2-5 /HPF Urine Appearance: Cloudy Urine Glucose Dipstick: >=1000 Urine Blood Dipstick: Trace Urine Urobilinogen Dipstick: 0.2 EU/dL -- Normal range between ( 0.2 and 1.0 ) Ur Calcium Oxalate Crystals: 1+ Urine Protein Dipstick: 30 Ur Amorph: Trace Ur Bacteria: Trace Urine Color: DK YELLOW Ur WBC: None Seen Urine Ketones Dipstick: Trace Ur Mucous: 1+ Urine pH Dipstick: 5.0 -- Normal range between ( 6.0 and 8.0 ) Urine Bilirubin Dipstick: Small Urine Specific [place]: 1.037 -- Normal range between ( 1.005 and 1.030 ) Urine Type.: U CleanCatGOBA General Chemistry 06/20/2019 2:45 PM Creatinine Level: 0.54 mg/dL -- Normal range between ( 0.55 and 1.02 ) Sodium Level: 140 mmol/L -- Normal range between ( 136 and 146 ) Potassium Level: 4.4 mmol/L -- Normal range between ( 3.5 and 5.1 ) Chloride Level: 106 mmol/L -- Normal range between ( 102 and 112 ) Carbon Dioxide Level: 26 mmol/L -- Normal range between ( 21 and 32 ) Anion Gap: 12 -- Normal range between ( 9 and 20 ) Bilirubin Total: 0.6 mg/dL -- Normal range between ( 0.2 and 1.3 ) A/G Ratio: 1.1 -- Normal range between ( 1.1 and 2.5 ) ALT: 26 Units/Liter -- Normal range between ( 12 and 78 ) AST: 20 Units/Liter -- Normal range between ( 5 and 37 ) Globulin: 3.5 Gram/dL -- Normal range between ( 1.5 and 4.5 ) Alk Phos: 84 Units/Liter -- Normal range between ( 27 and 136 ) Bun/Creatinine: 20.4 -- Normal range between ( 8.0 and 20.0 ) Calcium Level: 9.5 mg/dL -- Normal range between ( 8.5 and 10.1 ) eGFR : >60 mL/min/1.73m2 eGFR NonAfrican: >60 mL/min/1.73m2 Glucose Level: 156 mg/dL -- Normal range between ( 74 and 106 ) Blood Urea Nitrogen: 11 mg/dL -- Normal range between ( 7 and 22 ) Protein Total: 7.4 Gram/dL -- Normal range between ( 6.4 and 8.2 ) Albumin Level: 3.9 Gram/dL -- Normal range between ( 3.4 and 5.0 ) Computed Tomography 06/20/2019 5:[address] Abdomen Pelvis W: CT Abdomen Pelvis W Education Materials Acute Back Pain, Adult Acute back pain [...] Managing pain, stiffness, and swelling ??? Take gkfv-dfi-ghpqyfb and prescription medicines only as told by [...] day. ??? Do not sit, drive, or bookseamer blindstitch one place for more than 30 minutes [...] less stress on your back. ??? Take ztmz-enw-cclaceg and prescription medicines and apply heat or ice as directed by your health care provider. This information is not intended to replace advice given to you by your health care provider. Make sure you discuss any questions you have with your health care provider. Document Released: 08/13/2006 Document Revised: 03/27/2018 Document Reviewed: 03/27/2018 [employer] Patient Education ?? 2019 [employer] Emergency Awareness and Preventative Care STROKE [...] Assistance with quitting is available by contacting 8-357-LEJA-NOW. This is a free resource providing counseling, support, and referral. Or you may contact your personal physician. [employer] Suicide Prevention Lifeline: The National Suicide Prevention [...] was given the opportunity to ask questions. Patient/V Block Saw Operator Name: Patient/V Block Saw Operator Signature: Relationship to Patient: Clinician/Hospital V Block Saw Operator Signature: Please Provide a Telephone Number Where You Can Be Reached: Is it Permissible To Leave a Message? Date: Electronically signed by [facility], [facility] Conversion Transit Proof Machine Operator Cerner at 12/10/2022 6:52 PM CDT documented in this encounter Plan of Treatment Not on file documented as of this encounter Visit Diagnoses Not on filedocumented in this encounter Care Teams File Drawer Finisher Relationship Specialty Start Date End Date Igor Meyers MD [address] [place] [address] PCP - General Family Medicine 11/23/22 08/22/23 Provider, Not In System, CHRISTIAN SALAZAR PCP - General 08/23/23 08/27/24 [facility] Connection, Find-A-Doc [facility] [place] [address] PCP - General 08/28/24 11/06/24 [facility], [facility]Doc [facility] [place] [address] PCP - General 11/07/24 02/22/25 [facility], Provider Not In The System, [address] [place] [address] PCP - General 02/23/25 06/26/25 [facility] Connection, [facility]Doc [facility] Find-a-Doc [place], [place] [id number] PCP - General 06/27/25 documented as of this encounter
--- OUTSIDE RECORDS SUMMARY | 2025-08-12 20:09 | XMS_ITS | Encounter Summary ---
Author Organization [employer] ([place], [place], [place], [place], [place]) Address [address] [place] [address] Care Team Providers Care Catalyst Supervisor Name Role Phone Igor Meyers MD Primary Care Provider [phone] Provider, Not In System VP OF GLOBAL MARKETING Primary Care Provid er Unavailable [facility] Connection, Find-A-Doc Primary Care Provider [facility], Find[facility]A-Doc Primary Care Provider [facility], Provider Not In The System Primary Care Provider Unavailable [facility] Connection, Find-A-Doc Primary Care Provider Encounter Details Date Type Department Care Team (Late st Contact Info) Description 06/20/[address] [facility] [place] Family Medicine [facility] [place] [address] ProviderRufino MD [address] [place] [address] Social History Tobacco Use Types Packs/Day Years Used Date Smoking Tobacco: Never Assessed Comments Unknown Sex and Gender Information Value Date Recorded Sex Assigned at Not on file Legal Sex Female 1:33 PM CDT Gender Identity Not on file Sexual Orientation Not on file documented as of this encounter Miscellaneous Notes * Cerner Conversion Note - Rufino ProviderMD - 06/20/2019 2:45 PM CDT ED Event Note Entered On: 06/20/2019 16:07 EDT Performed On: 06/20/2019 14:45 EDT by YAZAN ELI, DIRECTORY ASSISTANCE OPERATOR Event Note ED Event Date/Time : 06/20/2019 14:45 EDT ED Description of Event : attempted to find patients tractor sweeper driver in lobby. No one answered. YAZAN ELI, RN - 06/20/2019 16:07 EDT Electronically signed by [facility], [facility] Conversion Contracts Law Professor Cerner at 12/10/2022 6:49 PM CDT documented in this encounter Plan of Treatment Not on file documented as of this encounter Visit Diagnoses Not on filedocumented in this encounter Care Teams Catalyst Supervisor Relationship Specialty Start Date End Date Igor Meyers MD [address] [place] [address] PCP - General Family Medicine 11/23/22 08/22/23 Provider, Not In System, VP OF GLOBAL MARKETING [place] PCP - General 08/23/23 08/27/24 [facility] Connection, [facility]Doc [facility] Find-a-Doc [place], [place] [id number] PCP - General 08/28/24 11/06/24 [facility], [facility]Doc [facility] [place] [address] PCP - General 11/07/24 02/22/25 [facility], Provider Not In The System, [address] [place] [address] PCP - General 02/23/25 06/26/25 [facility] Connection, Find-A-Doc [facility] Find-a-Doc [place], [place] [id number] PCP - General 06/27/25 documented as of this encounter
--- OUTSIDE RECORDS SUMMARY | 2025-08-12 20:09 | XMS_ITS | Encounter Summary ---
Author Organization [email or web address] ([place], [place], [place], [place], [place]) Address [address] [place] [address] Care Team Providers Care Yarn Wrapper Name Role Phone Igor Meyers MD Primary Care Provider [phone] Provider, Not In System DICTATING MACHINE MECHANIC Primary Care Provid er Unavailable [facility] Connection, Find-A-Doc Primary Care Provider [facility], Find[facility]A-Doc Primary Care Provider [facility], Provider Not In The System Primary Care Provider Unavailable [facility] Connection, Find-A-Doc Primary Care Provider Encounter Details Date Type Department Care Team (Late st Contact Info) Description 07/27/2019 Transcribed Document [facility] [place] [place] Family [facility] [place] [address] ProviderRufino MD [address] [place] [address] Social History Tobacco Use Types Packs/Day Years Used Date Smoking Tobacco: Never Assessed Comments Unknown Sex and Gender Information Value Date Recorded Sex Assigned at Not on file Legal Sex Female 1:33 PM CDT Gender Identity Not on file Sexual Orientation Not on file documented as of this encounter Miscellaneous Notes * Cerner Conversion Note - Rufino ProviderMD - 07/27/2019 6:33 PM FURNITURE DESIGNER ED Assessment Entered On: 07/27/2019 21:02 EST Performed On: 07/27/2019 19:50 EST by Pastora Fajardo RN ED Quick Look Assessment Level of Consciousness : Alert, Awake Affect/Behavior : Appropriate, Calm, Cooperative Orientation : Oriented x 4 Skin Temperature : Warm Skin Description : Dry, Elim Pastora Fajardo RN - 07/27/2019 20:59 EST ED General-Functional Assess Information Obtained From : Patient Preferred Communication Mode : Verbal Communication Barrier : None Primary Language : Dominican Any Spiritual/Cultural Needs or Requests : No Currently in Unsafe Situation : No Pastora Fajardo RN - 07/27/2019 20:59 EST Social Habits Smoking Status : Never (less than 100 in lifetime; none in last 30 days) Smokeless Tobacco Status : Never Desires Tobacco Cessation Calc : 0 Pastora Fajardo RN - 07/27/2019 20:59 EST Social History (As Of: 07/27/2019 21:02:11 EST) Tobacco: Smoking Status Never smoker. (Last Updated: 08/12/2014 20:30:11 EST by Sheryl Burnett, RN) Alcohol: Use in Last 12 Months: No. (Last Updated: 08/12/2014 20:30:02 EST by Sheryl Burnett, RN) Substance Abuse: Drug Use Hx: No. Use in Last 12 Months: No. (Last Updated: 08/12/2014 20:30:16 EST by Sheryl Burnett, RN) Home/Environment: Lives with Alone. Home equipment: CPAP/BiPAP, Glucose monitoring. (Last Updated: 08/12/2014 20:30:08 EST by Sheryl Burnett, RN) Musculoskeletal Musculoskeletal Assessment Comment : pt c/o back and bilateral leg pain for a week now. pt has been here for same before. pt aaox4, skin pwd, resps even and unlabored. Pastora Fajardo RN - 07/27/2019 20:59 EST Electronically signed by Alphonse [facility] Conversion Title Specialist Cerner at 12/10/2022 6:51 PM CDT documented in this encounter Plan of Treatment Not on file documented as of this encounter Visit Diagnoses Not on filedocumented in this encounter Care Teams Yarn Wrapper Relationship Specialty Start Date End Date Igor Meyers MD [address] [place] [address] PCP - General Family Medicine 11/23/22 08/22/23 Provider, Not In System, CHRISTIAN SALAZAR PCP - General 08/23/23 08/27/24 [facility] [place], Find-A-Doc [facility] [place] [address] PCP - General 08/28/24 11/06/24 [facility] Connection, [facility] [place] [address] PCP - General 11/07/24 02/22/25 [facility], Provider Not In The System, [place] [address] PCP - General 02/23/25 06/26/25 [facility] Connection, [facility]Doc [facility] [place] [address] PCP - General 06/27/25 documented as of this encounter
--- OUTSIDE RECORDS SUMMARY | 2025-08-12 20:09 | XMS_ITS | Clinical Summary ---
Author Organization [employer] ([place], [place], [place], [place], [place]) Address [address] [place] [address] Care Team Providers Care Racing Manager Name Role Phone [facility], Find-A-Doc Primary Care Provider Allergies Active Allergy Reactions Criticality Noted Date Comments Ibuprofen 07/24/2022 Naproxen Hives,Swelling High 07/04/2012 has tolerated ketorolac Takes ASA at home Oxycodone-Acetaminophen Itching,Swelling ,Pal pitations High 11/02/2015 Other reaction(s): Other Tachycardia Tolerates tramadol Sulfa (Sulfonamide Antibiotics) Itching,Rash Medium 11/23/2016 Sulfadiazine Swelling,Itching High 07/24/2022 Sulfamethoxazole-Trimet hoprim Itching Medium 07/06/2020 Medications traZODone (DESYREL) 100 MG tablet Take 1 tablet (100 mg total) by mouth nightly. 2 Active aspirin 81 MG EC tablet Take 1 tablet (81 mg total) by mouth daily. 2 Active atorvastatin (LIPITOR) 80 MG tablet Take 1 tablet (80 mg total) by mouth nightly. 2 Active busPIRone (BUSPAR) 5 MG tablet Take 1 tablet (5 mg total) by mouth 2 (two) times daily. Active albuterol HFA (VENTOLIN HFA) 90 mcg/actuation inhaler Inhale 2 puffs by mouth every 6 (six) hours as needed for wheezing. Active fexofenadine (NOLVIA) 180 MG tablet Take 1 tablet (180 mg total) by mouth daily. Active gabapentin (NEURONTIN) 600 MG tablet Take 1 tablet (600 mg total) by mouth 2 (two) times daily. 2 Active insulin glargine (LANTUS, SEMGLEE) 100 unit/mL injection Inject 6-10 Units under the skin nightly. Active rivaroxaban (XARELTO) 10 mg tablet Take 1 tablet (10 mg total) by mouth daily. Active lisinopriL (ZESTRIL) 2.5 MG tablet Take 1 tablet (2.5 mg total) by mouth daily. Active ranolazine (RANEXA) 500 MG 12 hr tablet Take 1 tablet (500 mg total) by mouth 2 (two) times daily. Active DULoxetine (CYMBALTA) 30 MG capsule Take 1 capsule (30 mg total) by mouth daily. Active cholecalciferol, vitamin D3, 50 mcg (2,000 unit) cap Take 1 capsule (2,000 Units total) by mouth daily. Active dapagliflozin propanediol (Farxiga) 10 mg tablet Take 1 tablet (10 mg total) by mouth daily. Active metFORMIN (GLUCOPHAGE) 500 MG tablet Take 1 tablet (500 mg total) by mouth 2 (two) times daily with breakfast and dinner. Active pantoprazole (PROTONIX) 40 MG tablet Take 1 tablet (40 mg total) by mouth daily. Active potassium chloride (KLOR-CON) 20 MEQ tablet Take 1 tablet (20 mEq total) by mouth daily. Active Active Problems Problem Noted Date Diagnosed Date Sepsis 02/19/2025 Abscess 11/04/2023 Chest pain 06/30/2022 Encounters Date Type Department Care Team Description 06/27/2025 3:15 PM EDT - 06/27/2025 7:14 PM EDT Emergency [facility] Emergency Department [address] [place] [phone] Gustabo Tripp MD Atypical chest pain (Primary Dx) Discharge Disposition: Home or Self Care 06/27/2025 Travel from Last 3 Months Immunizations Immunization Administration Dates Next Due Influenza Four-QIV 6MO+ PF IM ([id number]) 3 Social History Tobacco Use Types Packs/Day Years Used Date Smoking Tobacco: Never Smokeless Tobacco: Never Tobacco Cessation:Counseling Given: Not Answered Alcohol Use Standard Drinks/Week Comments Never 0 [...] your living situation today? [facility] a [facility] live 02/19/2025 Think about the [...] Do you speak a language other than [place] at [place]? No 02/19/2025 Do you want help with [...] on file Sexual Orientation Not on file Last Filed Vital Signs Vital Sign Reading [...] Mass Index 30.3 06/27/2025 3:20 PM EDT Plan of Treatment Health Maintenance Due Date Last Done Comments CT Colonography 1960 Colonoscopy 1960 Colorectal Cancer Screening 1960 FOBT/FIT 1960 Fit-DNA (Cologuard) 1960 Sigmoidoscopy 1960 Depression Screening (12+) 1972 HIV Screening 1975 Hepatitis C Screening 1978 DTAP/TDAP/TD VACCINES (1 - Tdap) 1979 Pap Smear 1981 Breast Cancer Screening 2000 Pneumococcal 50+ years (1 of 1 - PCV) 2010 Shingles Vaccine (Zoster) (1 of 2) 2010 Respiratory Syncytial Virus (RSV) Adult or (1 - Risk 60-74 years 1-dose series) 2020 COVID-19 VACCINE (3 - season) 04/27/202507/2022, 12/04/2020 Influenza Vaccine (#1) 2025 11/24/2022 Tobacco Cessation Counseling and Screening (12+) 06/27/2026 06/27/2025 Lipid Panel 11/04/2026 11/05/2023, 03/27, 11/21/2018 Procedures Procedure Name Priority Date/Time Associated Diagnosis Comments FS_MODEL_IP_ECG 12-LEAD STAT 06/27/2025 6:24 PM EDT HIGH SENSITIVITY TROPONIN I STAT 06/27/2025 6:18 PM EDT D-DIMER STAT 06/27/2025 4:24 PM EDT PROBNP STAT 06/27/2025 4:24 PM EDT HIGH SENSITIVITY TROPONIN I STAT 06/27/2025 4:24 PM EDT MAGNESIUM STAT 06/27/2025 4:24 PM EDT COMPREHENSIVE METABOLIC PANEL STAT 06/27/2025 4:24 PM EDT CBC W/ AUTO DIFF STAT 06/27/2025 4:24 PM EDT XR CHEST 1 VIEW PORTABLE / BEDSIDE STAT 06/27/2025 4:23 PM EDT FS_MODEL_IP_ECG 12-LEAD STAT 06/27/2025 3:17 PM EDT EKG-SCANNED 06/27/2025 LIPID PANEL Routine 04/13/2020 5:43 AM EDT from Last 3 Months or Most Recently Relevant to Health Maintenance Results * ECG 12 lead (06/27/2025 6:24 PM EDT) Only the most recent of2 resultswithin the time period is included. SYSTOLIC BLOOD PRESSURE (MCT) 117 mmHg GE MUSE DIASTOLIC BLOOD PRESSURE (MCT) 61 mmHg GE MUSE VENTRICULAR RATE EKG/MIN 76 BPM GE MUSE ATRIAL RATE (MCT) 76 BPM GE MUSE [place] Interval 140 ms GE MUSE QRS-INTERVAL (MSEC) 72 ms GE MUSE QT Interval 388 ms GE MUSE QTC Interval 436 ms GE MUSE P Savage 28 degrees GE MUSE R AXIS (MCT) 63 degrees GE MUSE T Wave [place] -166 degrees GE MUSE [place] Diagnosis Normal sinus rhythm with sinus arrhythmia ST & T wave abnormality, consider inferior ischemia ST & T wave abnormality, consider anterior ischemia Baseline artifact Abnormal ECG Confirmed by Tarah GALVAN SUZANNE ([id number]) on 06/29/2025 1:15:41 PM GE MUSE 06/27/2025 6:24 PM EDT 06/29/2025 1:15 PM EST Christina Franklin APRN ECG ORDERABLES Final Resu lt GE MUSE * High Sensitivity Troponin I (06/27/2025 6:18 PM EDT) Only the most recent of2 resultswithin the time period is included. Troponin I High Sensitivity (pg/mL) 6.6 3 - 58.8 pg/mL 06/27/2025 7:02 PM EDT [facility] Comment: Troponin Result (pg/mL) *Interpretation [...] 6:18 PM EDT 06/27/2025 6:36 PM EDT Christina Franklin APRN LAB BLOOD ORDERABLES Final Result [facility] [address] [phone] * (ABNORMAL) CBC with Auto Diff (06/27/2025 4:24 PM EDT) WBC 8.8 3.9 - 10.0 K/ L 06/27/2025 4:28 PM EDT [facility] RBC 4.51 3.93 - 6.08 M/ L 06/27/2025 4:28 PM EDT [facility] Hemoglobin 13.3 11.2 - 15.7 GM/DL 06/27/2025 4:28 PM EDT [facility] Hematocrit 39.9 34.1 - 44.9 % 06/27/2025 4:28 PM EDT [facility] MCV 89 79 - 95 fL 06/27/2025 4:28 PM EDT [facility] MCH 29.5 25.6 - 32.2 pg 06/27/2025 4:28 PM EDT [facility] MCHC 33.3 32.2 - 36.5 GM/DL 06/27/2025 4:28 PM EDT [facility] RDW 15.5(H) 11.6 - 14.4 % 06/27/2025 4:28 PM EDT [facility] Platelets 302 163 - 369 K/CU MM 06/27/2025 4:28 PM EDT [facility] MPV 10.2 9.4 - 12.4 fL 06/27/2025 4:28 PM EDT [facility] % Neutros 68 34 - 71 % 06/27/2025 4:28 PM EDT [facility] % Lymphs 23 19 - 53 % 06/27/2025 4:28 PM EDT [facility] % Monos 7 4 - 13 % 06/27/2025 4:28 PM EDT [facility] % Eos 1.9 1.0 - 7.0 % 06/27/2025 4:28 PM EDT [facility] % Baso 1 0 - 1 % 06/27/2025 4:28 PM EDT [facility] # Neutros 5.96 1.56 - 6.13 K/ L 06/27/2025 4:28 PM EDT [facility] # Lymphs 1.99 1.18 - 3.74 K/ L 06/27/2025 4:28 PM EDT [facility] # Monos 0.57 0.24 - 0.82 K/ L 06/27/2025 4:28 PM EDT [facility] # Eos 0.17 0.04 - 0.54 K/ L 06/27/2025 4:28 PM EDT [facility] # Baso 0.07 0.01 - 0.08 K/ L 06/27/2025 4:28 PM EDT [facility] % Imm Grans 0.50 0.00 - 0.60 % 06/27/2025 4:28 PM EDT [facility] # IG 0.04 0.00 - 0.05 K/uL 06/27/2025 4:28 PM EDT [facility] Blood Venipuncture / Unknown 06/27/2025 4:24 PM EDT 06/27/2025 4:24 PM EDT Narrative [facility] - 06/27/2025 4:28 PM EDT [...] Flag noted Atypical Lymph flag noted Christina Roshel INTEGRITY ASSESSOR LAB BLOOD ORDERABLES Final Result Performing Organization Address [facility] Co de Phone Number [facility] [address] [phone] * PROBNP (06/27/2025 4:24 PM EDT) Pathologist [facility] ProBNP (pg/mL) 88 0 - 125 pg/mL 06/27/2025 4:55 PM EDT [facility] Blood Venipuncture / Unknown 06/27/2025 4:24 PM EDT 06/27/2025 4:24 PM EDT Narrative [facility] - 06/27/2025 4:55 PM EDT Biotin supplements can cause clinically significant incorrect lab test results. The FDA has seen an increase in the number of reported adverse events related to biotin interference with lab tests. Christina Franklin APRN LAB BLOOD ORDERABLES Final Result Performing Organization Address [facility] de Phone Number [facility] [address] [phone] * (ABNORMAL) D-dimer (06/27/2025 4:24 PM EDT) Pathologist [facility] D-Dimer, Quant (SJME SJE) 555.30(H) <=500.00 ng/mL FEU 06/27/2025 4:55 PM EDT [facility] Comment: A normal D-dimer result [...] 4:24 PM EDT 06/27/2025 4:24 PM EDT [facility] LAB BLOOD ORDERABLES Final Result [facility] [address] [place] [address], [facility] [phone] * Magnesium (06/27/2025 4:24 PM EDT) Pathologist [facility] Magnesium 1.8 1.5 - 2.4 mg/dL 06/27/2025 4:55 PM EDT [facility] Blood Venipuncture / Unknown 06/27/2025 4:24 PM EDT 06/27/2025 4:24 PM EDT Christina Franklin APRN LAB BLOOD ORDERABLES Final Result Performing Organization Address [facility]/ZIP Co de Phone Number [facility] [address] [phone] * (ABNORMAL) Comprehensive metabolic panel (06/27/2025 4:24 PM EDT) [facility] Sodium 139 136 - 146 meq/L 06/27/2025 4:55 PM EDT [facility] Potassium 3.5 3.5 - 5.1 meq/L 06/27/2025 4:55 PM EDT [facility] Chloride 106 102 - 112 meq/L 06/27/2025 4:55 PM EDT [facility] CO2 24 21 - 32 meq/L 06/27/2025 4:55 PM EDT [facility] Calcium 9.6 8.5 - 10.1 mg/dL 06/27/2025 4:55 PM EDT [facility] Glucose 288(H) 74 - 100 mg/dL 06/27/2025 4:55 PM EDT [facility] BUN 10 7 - 22 mg/dL 06/27/2025 4:55 PM EDT [facility] Creatinine 0.61 0.55 - 1.02 mg/dL 06/27/2025 4:55 PM EDT [facility] BUN/Creatinine 16 8 - 20 06/27/2025 4:55 PM EDT [facility] Albumin 3.4 3.4 - 5.0 g/dL 06/27/2025 4:55 PM EDT [facility] Alkaline Phosphatase 94 27 - 136 U/L 06/27/2025 4:55 PM EDT [facility] ALT 21 12 - 78 U/L 06/27/2025 4:55 PM EDT [facility] AST 20 5 - 37 U/L 06/27/2025 4:55 PM EDT [facility] Total Bilirubin 0.3 0.2 - 1.3 mg/dL 06/27/2025 4:55 PM EDT [facility] Protein, Total 6.8 6.4 - 8.2 gm/dL 06/27/2025 4:55 PM EDT [facility] Anion Gap 13 9 - 20 06/27/2025 4:55 PM EDT [facility] A/G Ratio 1.0(L) 1.1 - 2.5 06/27/2025 4:55 PM EDT [facility] Globulin 3.4 1.5 - 4.5 g/dL 06/27/2025 4:55 PM EDT [facility] Osmolality Calc 287.1 mOsm/kg 4:55 PM EDT [facility] eGFR (mL/min/1.73m2) >60 >=60 mL/min/1.7 3m2 06/27/2025 4:55 PM EDT [facility] Comment:ESTIMATED GFR IS NOT ACCURATE CREATININE CLEARANCE IN PREDICTING GLOMERULAR FILTRATION RATE. ESTIMATED GFR IS NOT APPLICABLE FOR DIALYSIS PATIENTS. Blood Venipuncture / Unknown 06/27/2025 4:24 PM EDT 06/27/2025 4:24 PM EDT us Christina Franklin APRN LAB BLOOD ORDERABLES Final Result [facility] [address] [place] [address], [facility] [phone] * XR chest 1 view portable / [...] DIAGNOSTIC IMAGING ORD ERABLES Final Result * EKG-SCANNED (06/27/2025) Narrative 06/27/2025 Ordered by an unspecified provider. us Default Scanning Provider SCAN ORDERS Final Result * LIPID PANEL (04/13/2020 5:43 AM EDT) Triglyceride 131 0 - 249 mg/dL 04/13/2020 10:42 AM EDT Cholesterol HDL 54.0 mg/dL 0 10:42 AM EDT Comment: Desirable > 60 mg/dl Increased Risk < 40 mg/dl Cholesterol Total 116 0 - 199 mg/dL 04/13/2020 10:42 AM EDT Comment: 200 to 239 mg/dL Moderate (borderline) >239 mg/dL High Cholesterol VLDL Calculation 26.2 5.0 - 40.0 mg/dL 04/13/2020 10:42 AM EDT Comment:Calculated by Discer n Rule [id number] Cholesterol LDL Calculation 35.8 0.0 - 99.0 mg/dL 04/13/2020 10:42 AM EDT Comment: DESIRABLE <130 BORDERLINE 130 to 159 HIGH >=160 Cholesterol/HDL Ratio 2.1 0.0 - 3.2 04/13/2020 10:42 AM EDT LDL/HDL Ratio 0.7 0.0 - 3.2 04/13/2020 10:42 AM EDT Blood 04/13/2020 5:43 AM EDT 04/13/2020 10:10 AM EDT [facility] Historical Provider PATHOLOGY/CYTOLOGY JESSICAE SPENCER Final Result [facility] [address] [phone] from Last 3 Months or Most Recently Relevant to Health Maintenance Insurance [facility] Advance Directives For more information, please contact: [phone] * DNR - Limited Additional Intervention (Latest Code Status on File) Date Activated Date Inactivated Comments 02/19/2025 11:43 AM 02/23/2025 6:35 PM * Full Code Date Activated Date Inactivated Comments 02/19/2025 11:28 AM 02/19/2025 11:43 AM * DNR - Limited Additional Intervention Date Activated Date Inactivated Comments 11/23/2022 5:35 PM 11/25/2022 11:52 AM If no pulse: NO intervention If has pulse: NO Intubation. May use BiPAP/CPAP Call FLOTATION TANK OPERATOR * Full Code Date Activated Date Inactivated Comments 11/23/2022 5:25 PM 11/23/2022 5:34 PM * Full Code Date Activated Date Inactivated Comments 06/30/2022 12:49 AM 07/01/2022 4:56 PM Care Teams Racing Manager Relationship Specialty Start Date End Date [facility], [facility]Doc [facility] [place] [address] PCP - General 06/27/25
--- OUTSIDE RECORDS SUMMARY | 2025-08-12 20:09 | XMS_ITS | Encounter Summary ---
Author Organization Healthcare Address [address] [place] [address] Care Team Providers Care Structural Engineer Name Role Phone Leobardo Jones Primary Care Provider [phone] Arlene Spears Unavailable [phone] Timbo Mcdaniel MD Unavailable [phone] Igor Meyers MD Primary Care Provider [phone] Encounter Details Date Type Department Care Team (Late st Contact Info) Description 06/19/2023 Lab Requisition [facility] [address] [place] [address] Gustabo Devries MD [address] [facility] [address] [place] [phone] Encounter for general adult medical examination without abnormal findings Social History Tobacco Use Types Packs/Day Years Used Date Smoking Tobacco: Never Smokeless Tobacco: Never Alcohol Use Standard Drinks/Week Comments No 0 (1 standard drink = 0.6 oz pur e alcohol) CAGE ASSESSMENT Answer Date Recorded Cage unable to access Not on file 06/16/2023 Cage max number of drinks Not on file 2022 Cage Beverages a week Not on file 06/16/2023 Have you ever felt you should CUT down on your d rinking? 0 06/16/2023 Have you been ANNOYED by people criticizing your drinking? 0 06/16/2023 Have you felt GUILTY about your drinking? 0 06/16/2023 Have you had a drink first t vic in the morning (EYE-KNOTTING MACHINE OPERATOR) to steady your nerves or to get rid of a hangover? 0 06/16/2023 CAGE Questionnaire Score 0 023 PHQ-2A Answer Date Recorded Depression Risk 2 11/30/2022 Comments No Sex and Gender Information Value Date Recorded Sex Assigned at Female 03/23/2021 5:37 AM EDT Legal Sex Female 8:56 PM EDT Gender Identity Female 03/23/2021 5:37 AM EDT Sexual Orientation Straight 04/29/2021 1: 13 PM EDT documented as of this encounter Functional Status * Question Answer Date of Assessment Author Precautions Fall risk 06/22/2023 10:40 PM EDT Mesfin Mcpherson RN * Calculated C-SSRS Risk Score (Lifetime/Recent) Answer Date of Assessment Author No Risk Indicated 06/22/2023 8:00 PM EDT Mesfin Peguero RN * Question Answer Date of Assessment Author 1. Wish to be (Past 1 Month) No 06/22/2023 8:00 PM EDT Mesfin Peguero RN 2. Non-Specific Active Suici christian Thoughts (Past 1 Month) No 06/22/2023 8:00 PM EDT Zack Peguero RN 6. Suicidal Behavior (Lifetime) No 8:00 PM EDT Mesfin Peguero RN documented as of this encounter Mental Status * Question Answer Entry Date Author Precautions Fall risk 06/22/2023 10:40 PM EDT Mesfin Mcpherson RN documented in this encounter Plan of Treatment Not on file documented as of this encounter Procedures Procedure Name Priority Date/Time Associated Diagnosis Comments LIANE AURIS SURVEILLANCE BY PCR Routine 06/19/2023 6:55 PM EDT Encounter for general adult medical examination without abnormal findings documented in this encounter Results * Liane auris Surveillance by PCR (06/19/2023 6:55 PM EDT) Liane auris PCR Result Not Detected Not Detected 06/21/2023 12:05 PM EDT [facility] Swab (Axilla and Groin) 06/19/2023 6:55 PM EDT 06/19/2023 7:09 PM EDT Narrative [facility] - 06/21/2023 12:05 PM EDT This PCR assay was developed and its performance characteristics determined by [facility] as appropriate for clinical purposes. This assay has not been cleared or approved by the FDA, but is performed in a CLIA regulated laboratory that is qualified to perform high-complexity testing. Gustabo Devries MD LAB MICROBIOLOGY - GEN ERAL ORDERABLES Final Result [facility] [address] [place] [address] documented in this encounter Visit Diagnoses Diagnosis Encounter for general adult medical examination without abnormal findings documented in this encounter Additional Health Concerns Infection Onset Date Last Indicated Resolved Time Meningitis Rule-Out 11/05/2023 11/05/2023 11/05/19 7:31 PM EDT Meningitis Rule-Out 11/08/2023 11/08/2023 11/08/19 8:03 PM EDT Meningitis Rule-Out 11/13/2023 11/13/2023 11/13/19 24 1:35 PM EDT COVID-19 Rule-Out 09/15/2024 09/15/2024 09/15/2024 8:49 PM EST Meningitis Rule-Out 01/11/2025 01/11/2025 01/12/20 25 10:13 AM EDT Meningitis Rule-Out 01/13/2025 01/13/2025 01/14/20 25 5:33 AM EDT Meningitis Rule-Out 01/14/2025 01/14/2025 01/15/20 25 11:27 AM EDT C. difficile Rule-Out 01/15/2025 01/15/20252024 2:50 PM EDT Meningitis Rule-Out 01/16/2025 01/16/2025 01/17/20 25 7:29 AM EDT Meningitis Rule-Out 01/18/2025 01/18/2025 01/19/20 25 7:21 PM EDT Assessment Noted Time A fall risk assessment has been complete d for the patient 12/11/2022 8:19 AM EDT A Body Mass Index follow-up plan has been documented for the patient 06/29/2023 11:03 AM EDT documented as of this encounter Care Teams Structural Engineer Relationship Specialty Start Date End Date Leobardo Jones [place] [phone] PCP - General 01/07/21 07/08/23 Igor Meyers MD [address] [place] [address] PCP - General 07/09/23 Arlene Spears PA [address] [facility] [place] [address] Physician Division Director Neurosurgery 02/14/21 Timbo Mcdaniel MD [address] [facility] [address] [place] [address] Surgeon Neurosurgery 02/18/21 documented as of this encounter
--- OUTSIDE RECORDS SUMMARY | 2025-08-12 20:09 | XMS_ITS | Encounter Summary ---
Author Organization [employer] ([place], [place], [place], [place], [place]) Address [address] [place] [address] Care Team Providers Care Manager Army Name Role Phone Igor Meyers MD Primary Care Provider [phone] Provider, Not In System RIM FIRE PRIMING TOOL SETTER Primary Care Provid er Unavailable [facility], [facility]Doc Primary Care Provider [facility], [facility] Primary Care Provider [facility], Provider Not In The System Primary Care Provider Unavailable [facility], [facility]Doc Primary Care Provider Encounter Details Date Type Department Care Team (Late st Contact Info) Description 07/02/2019 Transcribed Document [facility] Family Medicine [address] [place] [address] ProviderRufino MD [address] [place] [address] Social History Tobacco Use Types Packs/Day Years Used Date Smoking Tobacco: Never Assessed Comments Unknown Sex and Gender Information Value Date Recorded Sex Assigned at Not on file Legal Sex Female 1:33 PM CDT Gender Identity Not on file Sexual Orientation Not on file documented as of this encounter Miscellaneous Notes * Cerner Conversion Note - Rufino ProviderMD - 07/02/2019 1:31 PM SHIRRING MACHINE OPERATOR AUTOMATIC ED Triage Entered On: 07/02/2019 13:38 EST Performed On: 07/02/2019 13:35 EST by LEE BLAKELY BUSINESS COORDINATOR Triage Across the Room Triage Date/Time : 07/02/2019 13:35 EST Chief Complaint : c/o lower back pain x few days, denies any injury or urinary problems. pt ambulated with upright steady gait. LEE BLAKELY RN - 07/02/2019 13:35 EST DCP GENERIC CODE Tracking Acuity : 4 - Non - Urgent Tracking Group : [facility] LEE BLAKELY RN - 07/02/2019 13:35 EST Mode of Arrival : Ambulatory Transported to ED by : Private vehicle To Room Via : Ambulate Accompanied By : Unaccompanied ED Vital Signs : Document Height & Weight : Document ED Allergies : Document ED Reason for Visit : Document Tetanus Immunization : Less than 5 years LEE BLAKELY RN - 07/02/2019 13:35 EST Infectious Disease History Infectious Disease History : Chicken pox/Shingles, Herpes, Measles, Mumps Fever/Chills Last 48 Hours : No Travel To Regions with Travel Advisories : No Travel Outside [place] Within Last 30 Days : No Contact With Traveler to Advisory Region : No Tuberculosis Symptoms : None LEE BLAKELY RN - 07/02/2019 13:35 EST Vital Signs ED Temperature Source : Tympanic Temperature Mode : Fahrenheit Temperature, Fahrenheit : 98.0 Deg F ED Pain : Yes Clinical Temperature, C : 36.7 Deg C Oxygen Therapy Mode : Room air Peripheral Pulse Rate : 86 bpm Respiratory Rate : 18 Breaths/Min Systolic Blood Pressure : 155 mmHg (HI) Diastolic Blood Pressure : 77 mmHg Oxygen Saturation : 100 % LEE BLAKELY RN - 07/02/2019 13:35 EST Allergy (As Of: 07/02/2019 13:38:05 EST) Allergies (Active) sulfADIAZINE Estimated Onset Date: Unspecified ; Reactions: itching ; Created By: Ella Phelan Rn; Reaction Status: Active ; Category: Drug ; Substance: sulfADIAZINE ; Type: Allergy ; Severity: Severe ; Updated By: Ella Phelan Rn; Reviewed Date: 07/02/2019 13:37 EST sulfonamides Estimated Onset Date: Unspecified ; Reactions: Itching, Rash ; Created By: Diana Michel, Pharmacist-Resident; Reaction Status: Active ; Category: Drug ; Substance: sulfonamides ; Type: Allergy ; Severity: Moderate ; Updated By: Diana Michel, Pharmacist-Resident; Source: Patient ; Reviewed Date: 07/02/2019 13:37 EST Diagnosis Control ED (As Of: 07/02/2019 13:38:05 EST) Problems(Active) Apnea, sleep (SNOMED CT :233137550 ) Name of Problem: Apnea, sleep ; Recorder: Sheryl Burnett RN; Confirmation: Confirmed ; Classification: Patient Stated ; Code: [id number] ; Contributor System: VisterraChart ; Last Updated: 08/12/2014 20:25 EST ; Life Cycle Date: 08/12/2014 ; Life Cycle Status: Active ; Vocabulary: SNOMED CT Chronic CHF (SNOMED CT :802296324 ) Name of Problem: Chronic CHF ; Recorder: Sheryl Burnett RN; Confirmation: Confirmed ; Classification: Patient Stated ; Code: 891912975 ; Contributor System: PowerChart ; Last Updated: 08/12/2014 20:25 EST ; Life Cycle Date: 08/12/2014 ; Life Cycle Status: Active ; Vocabulary: SNOMED CT COPD (chronic obstructive pulmonary disease) with emphysema (SNOMED CT :284522648 ) Name of Problem: COPD (chronic obstructive pulmonary disease) with emphysema ; Recorder: Sheryl Burnett RN; Confirmation: Confirmed ; Classification: Patient Stated ; Code: [id number] ; Contributor System: VisterraChart ; Last Updated: 08/12/2014 20:25 EST ; Life Cycle Date: 08/12/2014 ; Life Cycle Status: Active ; Vocabulary: SNOMED CT Diabetes (SNOMED CT :463622186 ) Name of Problem: Diabetes ; Recorder: Sheryl Burnett RN; Confirmation: Confirmed ; Classification: Patient Stated ; Code: 779690603 ; Contributor System: PowerChart ; Last Updated: 08/12/2014 20:24 EST ; Life Cycle Date: 08/12/2014 ; Life Cycle Status: Active ; Vocabulary: SNOMED CT Genital herpes (SNOMED CT :71837799 ) Name of Problem: Genital herpes ; Recorder: Sheryl Burnett RN; Confirmation: Confirmed ; Classification: Patient Stated ; Code: 42086559 ; Contributor System: PowerChart ; Last Updated: 08/12/2014 20:25 EST ; Life Cycle Date: 08/12/2014 ; Life Cycle Status: Active ; Vocabulary: SNOMED CT History of obstructive sleep apnea (IMO :41052872 ) Name of Problem: History of obstructive sleep apnea ; Recorder: SYSTEM, SYSTEM; Confirmation: Confirmed ; Classification: Medical ; Code: 65853259 ; Last Updated: 03/07/2018 10:59 EDT ; Life Cycle Date: 03/07/2018 ; Life Cycle Status: Active ; Vocabulary: IMO HTN (hypertension) (SNOMED CT :2459486299 ) Name of Problem: HTN (hypertension) ; Recorder: Sheryl Burnett RN; Confirmation: Confirmed ; Classification: Patient Stated ; Code: 6881592437 ; Contributor System: VisterraChart ; Last Updated: 08/12/2014 20:24 EST ; Life Cycle Date: 08/12/2014 ; Life Cycle Status: Active ; Vocabulary: SNOMED CT Hydrocephalus (SNOMED CT :856746825 ) Name of Problem: Hydrocephalus ; Recorder: Sheryl Burnett RN; Confirmation: Confirmed ; Classification: Patient Stated ; Code: 959755819 ; Contributor System: [employer] ; Last Updated: 08/12/2014 20:24 EST ; Life Cycle Date: 08/12/2014 ; Life Cycle Status: Active ; Vocabulary: SNOMED CT Hyperlipemia (SNOMED CT :71446501 ) Name of Problem: Hyperlipemia ; Recorder: Sheryl Burnett RN; Confirmation: Confirmed ; Classification: Patient Stated ; Code: 47098556 ; Contributor System: VisterraChart ; Last Updated: 08/12/2014 20:24 EST ; Life Cycle Date: 08/12/2014 ; Life Cycle Status: Active ; Vocabulary: SNOMED CT Myocardial infarction (SNOMED CT :96137676 ) Name of Problem: Myocardial infarction ; Recorder: Sheryl Burnett RN; Confirmation: Confirmed ; Classification: Patient Stated ; Code: 50893653 ; Contributor System: VisterraChart ; Last Updated: 08/12/2014 20:25 EST ; Life Cycle Date: 08/12/2014 ; Life Cycle Status: Active ; Vocabulary: SNOMED CT Diagnoses(Active) Back pain Date: 07/02/2019 ; Diagnosis Type: Reason For Visit ; Confirmation: Complaint of ; Clinical Dx: Back pain ; Classification: Medical ; Clinical Service: Emergency medicine ; Code: PNED ; Probability: 0 ; Diagnosis Code: [id number] ED Height and Weight Height Source : Stated Height Entry Format : Dexter Height, Feet : 4 ft(Converted to: 122 cm, 48 Inch) Height, Inches : 11 Inch(Converted to: 0 ft 11 Inch, 27.94 cm) Clinical Height : 149.86 cm Weight Source, ED : Standing scale Weight Entry Format : Dexter Weight, Pounds : 220 lb Clinical Dosing Weight : 100 kg Body Surface Area (BSA) : 1.92 m2 Body Mass Index : 44.5 kg/m2 (>HHI) [place] Body Weight (IBW) : 42.87 kg LEE BLAKELY RN - 07/02/2019 13:35 EST Pain Assessment Pain Assessment : Initial assessment Pain Scale Used : 0-10 Scale Location : Back, lower LEE BLAKELY RN - 07/02/2019 13:35 EST Pain Scale Intensity : 8 ZORALEE RN - 07/02/2019 13:35 EST Image 4 - Images currently included in the form version of this document have not been included in the text rendition version of the form. Electronically signed by Alphonse [facility] Conversion Delivery Helper Cerner at 12/10/2022 6:49 PM CDT documented in this encounter Plan of Treatment Not on file documented as of this encounter Visit Diagnoses Not on filedocumented in this encounter Care Teams Manager Army Relationship Specialty Start Date End Date Igor Meyers MD [address] [place] [address] PCP - General Family Medicine 11/23/22 08/22/23 Provider, Not In System, CHRISTIAN SALAZAR PCP - General 08/23/23 08/27/24 [facility], Find-A-Doc [facility]a-[facility] [place], [place] [id number] PCP - General 08/28/24 11/06/24 [facility], [facility]A-Doc [facility] [place] [address] PCP - General 11/07/24 02/22/25 [facility], Provider Not In The System, [place] [address] PCP - General 02/23/25 06/26/25 [facility], Find-A-Doc [facility] [place] [address] PCP - General 06/27/25 documented as of this encounter
--- OUTSIDE RECORDS SUMMARY | 2025-08-12 20:09 | XMS_ITS | Encounter Summary ---
Author Organization [employer] ([place], [place], [place], [place], [place]) Address [address] [place] [address] Care Team Providers Care Foreign Banknote Teller Name Role Phone Igor Meyers MD Primary Care Provider [phone] Provider, Not In System HYPERCIL CORE TRANSFORMER ASSEMBLER Primary Care Provid er Unavailable [facility], Find-A-Doc Primary Care Provider [facility], [facility] Primary Care Provider [facility], Provider Not In The System Primary Care Provider Unavailable [facility], Find-A-Doc Primary Care Provider Encounter Details Date Type Department Care Team (Late st Contact Info) Description 07/02/2019 Transcribed Document [facility] [place] [facility] [place] [address] ProviderRufino MD [address] [place] [address] Social History Tobacco Use Types Packs/Day Years Used Date Smoking Tobacco: Never Assessed Comments Unknown Sex and Gender Information Value Date Recorded Sex Assigned at Not on file Legal Sex Female 1:33 PM CDT Gender Identity Not on file Sexual Orientation Not on file documented as of this encounter Miscellaneous Notes * Cerner Conversion Note - Rufino ProviderMD - 07/02/2019 4:58 PM COUNT TEAM MEMBER [address] [address] ROBERTO RANDLE :1960 Visit Time:07/02/2019 Your Visit Summary Your Care Team Primary Provider: ABIMAEL PATHAK PA-C Secondary Provider: Your Diagnosis Back pain Degenerative lumbar disc Lumbago Medical Information You may obtain a copy [...] do next Follow-Up Appointments Follow Up with [facility] When Within 2 to 3 days Comments Call in the AM Where: [address] [place] [address]- Business (1) Follow Up with Follow up with primary care provider When Within 2 to 3 days Allergies sulfADIAZINE (itching) sulfonamides (Rash, Itching) Immunizations This Visit No Immunizations Found Medications What How Much When Instructions Next Dose New acetaminophen-hydrocodone ([place] 5 mg-325 mg oral tablet) 1 Tablet(s) Oral Every 6 Hours as needed for for pain Duration: 2 Day(s) not to exceed 8 tablets/ day Printed Prescription New diclofenac topical (diclofenac 1% topical gel) 4 Gram(s) Topical Four Times A Day as needed for for pain Pickup at [place], [place] New tiZANidine (tiZANidine 2 mg oral tablet) 1 Tablet(s) Oral Every 8 Hours as needed for as needed for muscle spasm Pickup at [place], [place] Pharmacy Information [place], [place]: [address], [place] [id number] [phone] The home medications listed are only as [...] This Visit (last charted value for your 07/02/2019 visit) Urinalysis 07/02/2019 1:42 PM Ur RBC: 2-5 /HPF Urine Nitrite: Negative Urine Leukocyte Esterase: Negative Ur Epithelial Cells: 0-2 /HPF Urine Appearance: Clear Urine Glucose Dipstick: Negative Urine Blood Dipstick: Negative Urine Urobilinogen Dipstick: 0.2 EU/dL -- Normal range between ( 0.2 and 1.0 ) Urine Protein Dipstick: Negative Ur Bacteria: Trace Urine Color: Yellow Ur WBC: 0-2 /HPF Urine Ketones Dipstick: Negative Urine pH Dipstick: 5.5 -- Normal range between ( 6.0 and 8.0 ) Urine Bilirubin Dipstick: Negative Urine Specific [place]: 1.027 -- Normal range between ( 1.005 and 1.030 ) Urine Type.: U CleanCatch Computed Tomography 07/02/2019 3:[address] Spine Lumbar WO: CT Spine Lumbar WO Education Materials Degenerative Disk Disease Degenerative disk disease is a condition caused by the changes that occur in spinal disks as you grow older. Spinal disks are soft and compressible disks located between the bones of your spine (vertebrae). These disks act like shock absorbers. Degenerative disk disease can affect the whole spine. However, the neck and lower back are most commonly affected. Many changes can occur in the spinal disks with aging, such as: ??? The spinal disks may dry and shrink. ??? Small tears may occur in the tough, outer covering of the disk (annulus). ??? The disk space may become smaller due to loss of water. ??? Abnormal growths in the bone (spurs) may occur. This can put pressure on the nerve roots exiting the spinal canal, causing pain. ??? The spinal canal may become narrowed. What increases the risk? Being overweight. ??? Having a family history of degenerative disk disease. ??? Smoking. ??? There is increased risk if you are doing heavy lifting or have a sudden injury. What are the signs or symptoms? Symptoms vary from person to person and may include: ??? Pain that varies in intensity. Some people have no pain, while others have severe pain. The location of the pain depends on the part of your backbone that is affected. ? You will have neck or arm pain if a disk in the neck area is affected. ? You will have pain in your back, buttocks, or legs if a disk in the lower back is affected. ??? Pain that becomes worse while bending, reaching up, or with twisting movements. ??? Pain that may start gradually and then get worse as time passes. It may also start after a major or minor injury. ??? Numbness or tingling in the arms or legs. How is this diagnosed? Your health care provider will ask you about your symptoms and about activities or habits that may cause the pain. He or she may also ask about any injuries, diseases, or treatments you have had. Your health care provider will examine you to check for the range of movement that is possible in the affected area, to check for strength in your extremities, and to check for sensation in the areas of the arms and legs supplied by different nerve roots. You may also have: ??? An X-ray of the spine. ??? Other imaging tests, such as MRI. How is this treated? Your health care provider will advise you on the best plan for treatment. Treatment may include: ??? Medicines. ??? Rehabilitation exercises. Follow these instructions at home: ??? Follow proper lifting and walking techniques as advised by your health care provider. ??? Maintain good posture. ??? Exercise regularly as advised by your health care provider. ??? Perform relaxation exercises. ??? Change your sitting, standing, and sleeping habits as advised by your health care provider. ??? Change positions frequently. ??? Lose weight or maintain a healthy weight as advised by your health care provider. ??? Do not use any tobacco products, including cigarettes, chewing tobacco, or electronic cigarettes. If you need help quitting, ask your health care provider. ??? Wear supportive footwear. ??? Take medicines only as directed by your health care provider. Contact a health care provider if: ??? Your pain does not go away within 1???4 weeks. ??? You have significant appetite or weight loss. Get help right away if: ??? Your pain is severe. ??? You notice weakness in your arms, hands, or legs. ??? You begin to lose control of your bladder or bowel movements. ??? You have fevers or night sweats. This information is not intended to replace advice given to you by your health care provider. Make sure you discuss any questions you have with your health care provider. Document Released: 06/09/2008 Document Revised: 01/18/2017 Document Reviewed: 12/15/2014 [employer] Interactive Patient Education ?? 2019 [employer] Acute Back Pain, Adult Acute back pain [...] Managing pain, stiffness, and swelling ??? Take rbog-ytm-ayatzij and prescription medicines only as told by [...] day. ??? Do not sit, drive, or early intervention specialist one place for more than 30 minutes [...] less stress on your back. ??? Take xkpk-shx-mlwsldp and prescription medicines and apply heat or ice as directed by your health care provider. This information is not intended to replace advice given to you by your health care provider. Make sure you discuss any questions you have with your health care provider. Document Released: 08/13/2006 Document Revised: 03/27/2018 Document Reviewed: 03/27/2018 [employer] Interactive Patient Education ?? 2019 [employer] Emergency Awareness and Preventative Care STROKE [...] Assistance with quitting is available by contacting 1-380-XBCX-NOW. This is a free resource providing counseling, support, and referral. Or you may contact your personal physician. [employer] Suicide Prevention Lifeline: The National Suicide Prevention [...] CPR? There are two easy steps: Call 9-1-1 if you see a teen or adult [...] including: emergency, radiology, or pathology physicians. Patient Name:RBOERTO RANDLE I have received this information and was given the opportunity to ask questions. Patient/Chief Technician X Ray Name: Patient/Chief Technician X Ray Signature: Relationship to Patient: Clinician/Hospital Chief Technician X Ray Signature: Please Provide a Telephone Number Where You Can Be Reached: Is it Permissible To Leave a Message? Date: Electronically signed by [facility], [facility] Conversion Help Desk Associate Cerner at 12/10/2022 6:48 PM CDT documented in this encounter Plan of Treatment Not on file documented as of this encounter Visit Diagnoses Not on filedocumented in this encounter Care Teams Foreign Banknote Teller Relationship Specialty Start Date End Date Igor Meyers MD [address] [place] [address] PCP - General Family Medicine 11/23/22 08/22/23 Provider, Not In System, CHRISTIAN SALAZAR PCP - General 08/23/23 08/27/24 [facility], [facility] [place] [address] PCP - General 08/28/24 11/06/24 [facility], Find[facility]a-Doc [place], [place] [id number] PCP - General 11/07/24 02/22/25 [facility], Provider Not In The System, [address] [place] [address] PCP - General 02/23/25 06/26/25 [facility], [facility]Doc [facility] Connection [facility]-a-Doc [place], [place] [id number] PCP - General 06/27/25 documented as of this encounter
--- OUTSIDE RECORDS SUMMARY | 2025-08-12 20:09 | XMS_ITS | Encounter Summary ---
Author Organization [employer] ([place], [place], [place], [place], [place]) Address [address] [place] [address] Care Team Providers Care Railway Signal Technician Name Role Phone Igor Meyers MD Primary Care Provider [phone] Provider, Not In System APPLICATION DEVELOPMENT CONSULTANT Primary Care Provid er Unavailable [facility], [facility] Primary Care Provider [facility], [facility] Primary Care Provider [facility], Provider Not In The System Primary Care Provider Unavailable [facility], [facility]Doc Primary Care Provider Encounter Details Date Type Department Care Team (Late st Contact Info) Description 07/27/2019 Transcribed Document [facility] [place] [place] [address] ProviderRufino MD [address] [place] [address] Social History Tobacco Use Types Packs/Day Years Used Date Smoking Tobacco: Never Assessed Comments Unknown Sex and Gender Information Value Date Recorded Sex Assigned at Not on file Legal Sex Female 1:33 PM CDT Gender Identity Not on file Sexual Orientation Not on file documented as of this encounter Miscellaneous Notes * Cerner Conversion Note - Rufino ProviderMD - 07/27/2019 9:[address] REGISTRY OFFICER ED Discharge Entered On: 07/27/2019 21:40 EST Performed On: 07/27/2019 21:40 EST by Pastora Fajardo RN Discharge Process Patient Disposition : Discharge Personal Belongings With Patient : Yes Patient Education Completed : Yes Teaching Evaluation : Verbalizes understanding IV Discontinued : Not applicable Nursing Documentation Completed : Yes Pastora Fajardo RN - 07/27/2019 21:40 EST ED Discharge Discharge To : Home without planned follow-up Mode Of Departure : Private vehicle Accompanied By : Friend Discharge Instructions Reviewed With, Opportunity For Questions Given : Patient, Friend Prescriptions Given to Patient : Yes Number of Prescriptions Given : 1 Medications Given to Patient : Yes Number of Medications Given : 1 Pastora Fajardo RN - 07/27/2019 21:40 EST Electronically signed by [facility] Conversion Stepdown Nurse Cerner at 12/10/2022 6:45 PM CDT documented in this encounter Plan of Treatment Not on file documented as of this encounter Visit Diagnoses Not on filedocumented in this encounter Care Teams Railway Signal Technician Relationship Specialty Start Date End Date Igor Meyers MD [address] [place] [address] PCP - General Family Medicine 11/23/22 08/22/23 Provider, Not In System, CHRISTIAN SALAZAR PCP - General 08/23/23 08/27/24 [facility], [facility]Doc [facility], [place] [id number] PCP - General 08/28/24 11/06/24 [facility], [facility], [place] [id number] PCP - General 11/07/24 02/22/25 [facility], Provider Not In The System, [place] [address] PCP - General 02/23/25 06/26/25 [facility], [facility]Doc [facility], [place] [id number] PCP - General 06/27/25 documented as of this encounter
--- OUTSIDE RECORDS SUMMARY | 2025-08-12 20:09 | XMS_ITS | Encounter Summary ---
Author Organization [employer] ([place], [place], [place], [place], [place]) Address [address] [place] [address] Care Team Providers Care File Machine Operator Name Role Phone [facility] Connection, Find-A-Doc Primary Care Provider Encounter Details Date Type Department Care Team (Latest Contact Info) Description 06/27/2025 Travel Social History Tobacco Use Types Packs/Day Years [...] Date Record ed How often does anyone, millicentjonathan sands family and friends, physically hurt you? Never 02/19/2025 How often does anyone, millicentjonathan sands family and friends, insult or talk down to you? Never 02/19/2025 How often does anyone, millicentjonathan sands family and friends, threaten you with harm? Never 02/19/2025 How often does anyone, yvonne sands family and friends, scream or curse at you? Never 02/19/2025 Housing Stability Answer Date Recorded What is your living situation today? I have a [facility] place to live 02/19/2025 Think about the [...] Do you speak a language other than [place] at [facility]? No 02/19/2025 Do you want help with [...] on file documented as of this encounter Functional Status * Are you [...] 9:58 AM CDT Celi Salamanca RN * Because of a physical, mental, or emotional condition, do you have serious difficulty doing errandsalone such as visiting the doctor? Answer Date of Assessment Author No 11/25/2022 9:58 AM IGNACIOT Celi Salamanca RN documented as of this encounter Mental Status * Because of a physical, mental, or emotional condition, do you have serious difficulty concentrating, remembering, or making decisions? (5 years old or older) Answer Entry Date Author No 11/25/2022 9:58 AM IGNACIOT Celi Salamanca RN documented in this encounter Plan of Treatment Not on file documented as of this encounter Visit Diagnoses Not on filedocumented in this encounter Care Teams File Machine Operator Relationship Specialty Start Date End Date [facility] Connection, Find-A-Doc [facility] [place] [address] PCP - General 06/27/25 documented as of this encounter
--- OUTSIDE RECORDS SUMMARY | 2025-08-12 20:09 | XMS_ITS | Encounter Summary ---
Author Organization [employer] ([place], [place], [place], [place], [place]) Address [address] [place] [address] Care Team Providers Care Litigation Attorney Name Role Phone Igor Meyers MD Primary Care Provider [phone] Provider, Not In System MANAGER OF IT Primary Care Provid er Unavailable [facility] Connection, Find-A-Doc Primary Care Provider [facility] Connection, Find-A-Doc Primary Care Provider [facility], Provider Not In The System Primary Care Provider Unavailable 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 Conversion Rn Nicu Cerner at 12/10/2022 6:33 PM CDT documented in this encounter Plan of Treatment Not on file documented as of this encounter Visit Diagnoses Not on filedocumented in this encounter Care Teams Litigation Attorney Relationship Specialty Start Date End Date Igor Myeers MD [address] [place] [id number] PCP - General Family Medicine 11/23/22 08/22/23 Provider, Not In System, CHRISTIAN SALAZAR PCP - General 08/23/23 08/27/24 [facility] Connection, Find-A-Doc [facility] Find-a-Doc [place], [place] [id number] PCP - General 08/28/24 11/06/24 [facility] Connection, Find-A-Doc [facility] Find-a-Doc [place], [place] [id number] PCP - General 11/07/24 02/22/25 [facility], Provider Not In The System, [place] [address] PCP - General 02/23/25 06/26/25 [facility] Connection, Find-A-Doc [facility] [place] [address] PCP - General 06/27/25 documented as of this encounter
--- OUTSIDE RECORDS SUMMARY | 2025-08-12 20:09 | XMS_ITS | Clinical Summary ---
Author Organization Healthcare Address [address] [place] [address] Care Team Providers Care Quality Control Assessor Name Role Phone Arlene Spears Unavailable [phone] Timbo Mcdaniel MD Unavailable [phone] Igor Meyers MD Primary Care Provider [phone] Allergies Active Allergy Reactions Criticality Noted Date Comments Ibuprofen Itching Medium 07/24/2022 Morphine Itching,Rash Medium 05/08/2022 Naproxen Hives,Itching,Swelli ng High 07/04/2012 has tolerated ketorolac has tolerated ketorolac Takes ASA at home Oxycodone-Acetaminop hen Itching,Palpitations ,Swelling High 11/02/2015 tachycardia Other reaction(s): Other Tachycardia Tolerates tramadol Sulfa Drugs Hives,Itching,Swelli ng High 05/14/2014 Medications fexofenadine (Dariana) 180 MG tabletIndicatio ns:Seasonal Allergic Rhinitis Take 1 tablet by mouth in the morning. Active gabapentin (Neurontin) 600 MG tabletIndicatio ns:Neuropathic Pain Take 1 tablet by mouth in the morning and 1 tablet before bedtime. Active nitroglycerin (Nitrostat) 0.4 MG SL tabletIndicatio ns:Acute Angina Pectoris Place 1 tablet under the tongue every 5 (five) minutes as needed for chest pain. Active furosemide (Lasix) 40 MG tabletIndicatio ns:Heart Failure Take 1 tablet by mouth in the morning. Active albuterol 108 (90 Base) MCG/ACT inhalerIndicati ons:Chronic Obstructive Pulmonary Disease Inhale 2 puffs every 4 to 6 hours as needed. Active lisinopril 2.5 MG tabletIndicatio ns:Hypertension Take 1 tablet by mouth in the morning. Active atorvastatin (Lipitor) 80 MG tabletIndicatio ns:Hyperlipidem ia Take 1 tablet (80 mg) by mouth every night. 30 tablet 3 Active rivaroxaban (Xarelto) 10 MG tabletIndicatio ns:Pulmonary Embolism Take 1 tablet by mouth daily. Active Aspirin Adult Low Strength 81 MG EC tabletIndicatio ns:CVA Take 1 tablet by mouth in the morning. Active ranolazine (Ranexa) 500 MG 12 hr tabletIndicatio ns:Stable Angina Pectoris Take 1 tablet by mouth in the morning and 1 tablet before bedtime. Active Farxiga 10 MG tabletIndicatio ns:Left Systolic Heart Failure,Type 2 Diabetes Mellitus Take 1 tablet by mouth in the morning. Active D3 Super Strength 50 MCG (2000 UT) capsuleIndicati ons:Vitamin D Deficiency Take 1 capsule by mouth in the morning. Active traZODone (Desyrel) 100 MG tabletIndicatio ns:Insomnia Take 1 tablet by mouth nightly. Active Lantus SoloStar 100 UNIT/ML injection penIndications: Type 2 Diabetes Mellitus Inject 10 Units under the skin every morning. 5 Active Additional Information Patient taking differently: 15 UnitsSubcutaneousDaily, Indications: Type 2 Diabetes Mellitus, Reported on 01/11/2025 DULoxetine (Cymbalta) [address] capsule Take 1 capsule by mouth daily. Do not crush or chew. Active busPIRone (Buspar) 5 MG tablet Take 1 tablet by mouth 2 times a day. Active nystatin (Mycostatin) 086972 UNIT/GM powder Apply to: perineum 5 Active magic butt balm (Cholestyramine ) CMPD (Magic Butt) Apply 1 Application topically every 1 hour as needed for diaper rash. 5 Active acetaminophen (Tylenol) 325 MG tablet Take 2 tablets by mouth every 4 hours as needed for headaches. Under [facility] law, monthly prescriptions (30 days) can be refilled at 25 days and three-month prescriptions (90 days) at 80 days. Please contact the insurance company with questions if refills are denied. 5 Active Active Problems Problem Noted Date Diagnosed Date Feeding difficulty in adult 01/26/2025 Assessment & Plan (01/27/2025 7:08 AM EDT): - UNIFORM ROOM ATTENDANT consulted - 01/22 MBS: Easy to chew (IDDSI Level 7) diet w/ thin liquids (Level 0). Straws ok, single sips only. Meds as able. Dysphagia tx w/ repeat instrumental exam in ~5-7 days. - dietitian consulted - strict I&O - record all PO intake in chart Assessment & Plan (01/26/2025 10:49 AM EDT): - UNIFORM ROOM ATTENDANT consulted - 01/22 MBS: Easy to chew (IDDSI Level 7) diet w/ thin liquids (Level 0). Straws ok, single sips only. Meds as able. Dysphagia tx w/ repeat instrumental exam in ~5-7 days. - dietitian consulted - strict I&O - record all PO intake in chart Irritant contact dermatitis 01/26/2025 Assessment & Plan (01/27/2025 7:08 AM EDT): - wound care consulted - continue Magic Butt Wiley Assessment & Plan (01/26/2025 8:24 AM EDT): - wound care consulted - continue Magic Butt Wiley Pneumocephalus 01/10/2025 Overview (01/10/2025): See congenital hydrocephalus Assessment & Plan (01/27/2025 7:08 AM EDT): - 01/10: admitted with CSF leak and pneumocephalus s/p EVD placement - 01/11: VPS removal w/ washout; VSP growing S. Aureus - 01/21: Right parieto-occipital VPS placement with SGE - ID consulted - Continue IV Nafcillin 2g q4hrly to continue for total 14 days duration from 01/11. To cover for ventriculitis as well as meningitis. - Recommend waiting total 10 days from day of negative CSF culture to place a new TIRE INSPECTOR shunt device. - Would check CBC with diff, CMP at least twice a week while on IV antibiotics. - CSF: NG - completed 14 day course of Nafcillin on 01/25 - Neuro checks q4h - 6/2 resumed ASA 81 mg - Resuming home on POD 10 (01/31/25) - daily bowel regimen - Nursing to assist patient out of bed to the chair 4 times a day. Up to the chair at each meal time (whether patient eats or not) and in the evening. - Ambulate in the hallway 3 times a day - Incentive spirometer q1h while awake - resume home medications as able - PT/OT recommendations: acute rehab - medically ready Assessment & Plan (01/26/2025 10:45 AM EDT): - 01/10: admitted with CSF leak and pneumocephalus s/p EVD placement - 01/11: VPS removal w/ washout; VSP growing S. Aureus - 01/21: Right parieto-occipital VPS placement with SGE - ID consulted - Continue IV Nafcillin 2g q4hrly to continue for total 14 days duration from 01/11. To cover for ventriculitis as well as meningitis. - Recommend waiting total 10 days from day of negative CSF culture to place a new TIRE INSPECTOR shunt device. - Would check CBC with diff, CMP at least twice a week while on IV antibiotics. - CSF: NG - completed 14 day course of Nafcillin on 01/25 - Neuro checks q4h - 01/26 resumed ASA 81 mg - Resuming home on POD 10 (01/31/25) - daily bowel regimen - Nursing to assist patient out of bed to the chair 4 times a day. Up to the chair at each meal time (whether patient eats or not) and in the evening. 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 Aureus - 01/21: Right parieto-occipital VPS placement with SGE - ID consulted - Continue IV Nafcillin 2g q4hrly to continue for total 14 days duration from 01/11. To cover for ventriculitis as well as meningitis. - Recommend waiting total 10 days from day of negative CSF culture to place a new TIRE INSPECTOR shunt device. - Would check CBC with diff, CMP at least twice a week while on IV antibiotics. - CSF: NG - completed 14 day course of Nafcillin on 01/25 - Neuro checks q4h - 01/26 resumed ASA 81 mg - Resuming home on POD 10 (01/31/25) - daily bowel regimen - Nursing to assist patient out of bed to the chair 4 times a day. Up to the chair at each meal time (whether patient eats or not) and in the evening. - Ambulate in the hallway 3 times a day - Incentive spirometer q1h while awake - resume home medications as able - PT/OT recommendations: acute rehab - medically ready Assessment & Plan (01/26/2025 10:45 AM EDT): - 01/10: admitted with CSF leak and pneumocephalus s/p EVD placement - 01/11: VPS removal w/ washout; VSP growing S. Aureus - 01/21: Right parieto-occipital VPS placement with SGE - ID consulted - Continue IV Nafcillin 2g q4hrly to continue for total 14 days duration from 01/11. To cover for ventriculitis as well as meningitis. - Recommend waiting total 10 days from day of negative CSF culture to place a new TIRE INSPECTOR shunt device. - Would check CBC with diff, CMP at least twice a week while on IV antibiotics. - CSF: NG - completed 14 day course of Nafcillin on 01/25 - Neuro checks q4h - 2 resumed ASA 81 mg - Resuming home on POD 10 (01/31/25) - daily bowel regimen - Nursing to assist patient out of bed to the chair 4 times a day. Up to the chair at each meal time (whether patient eats or not) and in the evening. - Ambulate in the hallway 3 times a day - Incentive spirometer q1h while awake - resume home medications as able - PT/OT recommendations: acute rehab - medically ready S/P TIRE INSPECTOR shunt 06/14/2023 Assessment & Plan (01/27/2025 7:08 AM EDT): - 01/10: admitted with CSF leak and pneumocephalus s/p EVD placement - 01/11: VPS removal w/ washout; VSP growing S. Aureus - 01/21: Right parieto-occipital VPS placement with SGE - ID consulted - Continue IV Nafcillin 2g q4hrly to continue for total 14 days duration from 01/11. To cover for ventriculitis as well as meningitis. - Recommend waiting total 10 days from day of negative CSF culture to place a new TIRE INSPECTOR shunt device. - Would check CBC with diff, CMP at least twice a week while on IV antibiotics. - CSF: NG - completed 14 day course of Nafcillin on 01/25 - Neuro checks q4h - 2 resumed ASA 81 mg - Resuming home on POD 10 (01/31/25) - daily bowel regimen - Nursing to assist patient out of bed to the chair 4 times a day. Up to the chair at each meal time (whether patient eats or not) and in the evening. - Ambulate in the hallway 3 times a day - Incentive spirometer q1h while awake - resume home medications as able - PT/OT recommendations: acute rehab - medically ready Assessment & Plan (01/26/2025 10:45 AM EDT): - 01/10: admitted with CSF leak and pneumocephalus s/p EVD placement - 01/11: VPS removal w/ washout; VSP growing S. Aureus - 01/21: Right parieto-occipital VPS placement with SGE - ID consulted - Continue IV Nafcillin 2g q4hrly to continue for total 14 days duration from 01/11. To cover for ventriculitis as well as meningitis. - Recommend waiting total 10 days from day of negative CSF culture to place a new TIRE INSPECTOR shunt device. - Would check CBC with diff, CMP at least twice a week while on IV antibiotics. - CSF: NG - completed 14 day course of Nafcillin on 01/25 - Neuro checks q4h - 01/26 resumed ASA 81 mg - Resuming home on POD 10 (01/31/25) - daily bowel regimen - Nursing to assist patient out of bed to the chair 4 times a day. Up to the chair at each meal time (whether patient eats or not) and in the evening. - Ambulate in the hallway 3 times a day - Incentive spirometer q1h while awake - resume home medications as able - PT/OT recommendations: acute rehab - medically ready Impaired mobility 06/02/2021 Assessment & Plan (01/27/2025 7:08 AM EDT): - PT/OT recommending acute rehab - Nursing to assist patient out of bed to the chair 4 times a day. Up to the chair at each meal time (whether patient eats or not) and in the evening. - Ambulate in the hallway 3 times a day Assessment & Plan (01/26/2025 10:42 AM EDT): - PT/OT recommending acute rehab - Nursing to assist patient out of bed to the chair 4 times a day. Up to the chair at each meal time (whether patient eats or not) and in the evening. - Ambulate in the hallway 3 times a day Chronic obstructive pulmonary disease 02/24/2021 Overview (01/10/2025): Resume home inhalers Assessment & Plan (01/27/2025 7:08 AM EDT): - resume home inhalers - Supplemental oxygen prn - Aggressive pulmonary hygiene - IS hourly while awake - Nebs prn as needed - CXR prn as needed - maintain oxygen saturation >90% Assessment & Plan (01/26/2025 8:24 AM EDT): - resume home inhalers - Supplemental oxygen prn - Aggressive pulmonary hygiene - IS hourly while awake - Nebs prn as needed - CXR prn as needed - maintain oxygen saturation >90% CHF (congestive heart failure) 02/24/2021 Overview (01/10/2025): Last ECHO in 2020 w/ EF 55-60%, no RV dilation Assessment & Plan (01/27/2025 7:08 AM EDT): - Last ECHO in 2020 w/ EF 55-60%, no RV dilation - resumed lasix and ASA 81 mg Assessment & Plan (01/26/2025 10:45 AM EDT): - Last ECHO in 2020 w/ EF 55-60%, no RV dilation - resumed lasix and ASA 81 mg Obstructive sleep apnea 02/20/2021 Overview (01/10/2025): Use home CPAP at night, if available Supplemental oxygen PRN Nebs as needed CXR as needed Assessment & Plan (01/27/2025 7:08 AM EDT): - Use home CPAP at night, if able - Supplemental oxygen prn - Aggressive pulmonary hygiene - IS hourly while awake Assessment & Plan (01/26/2025 8:24 AM EDT): - Use home CPAP at night, if able - Supplemental oxygen prn - Aggressive pulmonary hygiene - IS hourly while awake HTN (hypertension) 02/20/2021 Overview (01/16/2025): Normotension PRN Hydralazine and Labetalol Resume home medications as appropriate Assessment & Plan (01/27/2025 7:08 AM EDT): - Resume home medications when appropriate - resumed lasix - resume lisinopril when able - SPB < 160 - continue to monitor Assessment & Plan (01/26/2025 10:45 AM EDT): - Resume home medications when appropriate - resumed lasix - resume lisinopril when able - SPB < 160 - continue to monitor Gastroesophageal reflux disease 02/20/2021 Overview (06/08/2021): Continue home PPI Assessment & Plan (01/27/2025 7:08 AM EDT): - resume home PPI Assessment & Plan (01/26/2025 8:24 AM EDT): - resume home PPI Type 2 diabetes mellitus, wi th long-term current use of insulin 02/20/2021 Overview (01/19/2025): Hgb A1c 10 two months ago Continue SSI, Glargine, and regular insulin regimen Hold home regimen while in ICU Assessment & Plan (01/27/2025 11:55 AM EDT): - Hgb A1c 10 two months ago - A1c 8.6 on 01/26 - Continue sliding scale insulin - resume Glargine as able - Diabetic diet - Continue to monitor Assessment & Plan (01/26/2025 10:45 AM EDT): - Hgb A1c 10 two months ago - Continue sliding scale insulin - resume Glargine as able - Diabetic diet - Continue to monitor Obesity 05/20/2014 Overview (09/16/2024): Body mass index is 33.6 kg/m . Complicates all aspects of care and recovery Assessment & Plan (01/27/2025 11:55 AM EDT): - Body mass index is 32.75 kg/m . - Complicates all aspects of care and recovery Assessment & Plan (01/26/2025 10:49 AM EDT): - Body mass index is 37.38 kg/m . - Complicates all aspects of care and recovery Congenital hydrocephalus 05/14/2014 Overview (01/16/2025): History of VPS 01/10: admitted with CSF leak and pneumocephalus s/p EVD placement 01/11: VPS removal w/ washout; VSP growing S. Aureus Continue EVD per nsgy, future VPS plan pending Neuro checks per ICU protocol Rest of care per primary team Assessment & Plan (01/27/2025 7:08 AM EDT): - 01/10: admitted with CSF leak and pneumocephalus s/p EVD placement - 01/11: VPS removal w/ washout; VSP growing S. Aureus - 01/21: Right parieto-occipital VPS placement with SGE - ID consulted - Continue IV Nafcillin 2g q4hrly to continue for total 14 days duration from 01/11. To cover for ventriculitis as well as meningitis. - Recommend waiting total 10 days from day of negative CSF culture to place a new TIRE INSPECTOR shunt device. - Would check CBC with diff, CMP at least twice a week while on IV antibiotics. - CSF: NG - completed 14 day course of Nafcillin on 01/25 - Neuro checks q4h - 01/26 resumed ASA 81 mg - Resuming home on POD 10 (01/31/25) - daily bowel regimen - Nursing to assist patient out of bed to the chair 4 times a day. Up to the chair at each meal time (whether patient eats or not) and in the evening. - Ambulate in the hallway 3 times a day - Incentive spirometer q1h while awake - resume home medications as able - PT/OT recommendations: acute rehab - medically ready Assessment & Plan (01/26/2025 10:45 AM EDT): - 01/10: admitted with CSF leak and pneumocephalus s/p EVD placement - 01/11: VPS removal w/ washout; VSP growing S. Aureus - 01/21: Right parieto-occipital VPS placement with SGE - ID consulted - Continue IV Nafcillin 2g q4hrly to continue for total 14 days duration from 01/11. To cover for ventriculitis as well as meningitis. - Recommend waiting total 10 days from day of negative CSF culture to place a new TIRE INSPECTOR shunt device. - Would check CBC with diff, CMP at least twice a week while on IV antibiotics. - CSF: NG - completed 14 day course of Nafcillin on 01/25 - Neuro checks q4h - 01/26 resumed ASA 81 mg - Resuming home on POD 10 (01/31/25) - daily bowel regimen - Nursing to assist patient out of bed to the chair 4 times a day. Up to the chair at each meal time (whether patient eats or not) and in the evening. - Ambulate in the hallway 3 times a day - Incentive spirometer q1h while awake - resume home medications as able - PT/OT recommendations: acute rehab - medically ready Hyperlipidemia Overview (01/10/2025): Resume home medications as appropriate Assessment & Plan (01/27/2025 7:08 AM EDT): - resume atorvastatin Assessment & Plan (01/26/2025 8:24 AM EDT): - resume atorvastatin Resolved Problems Problem Noted Date Diagnosed Date Resolved Date Adjustment disorder 11/18/2024 01/11/20 25 Cellulitis of chest wall 10/24/2023 Breast abscess 10/22/2023 01/10/2025 Overview (10/25/2023): Complication of TIRE INSPECTOR shunt 10/18 I&D, drain in place Flagyl, vanc transitioned to augmentin WBC trending down Impaired skin integrity 10/17/202312/25 Overview (10/17/2023): Top of head Neck pain 07/17/2023 01/10/2025 Foreign body of neck 07/17/2023 025 Chronic intractable headache , unspecified headache type 06/14/2023 01/10/2025 Nonhealing nonsurgical wound limited to breakdown of skin 06/14/2023 06/24/2023 Nausea and vomiting, unspeci fied vomiting type 03/27/2023 01/10/2025 Aching headache 06/16/2022 01/10/2025 Hypomagnesemia 06/09/2021 06/14/2021 Overview (06/09/2021): Replace per ICU sliding scale policy Continue close assessment History of pulmonary embolus (PE) 06/05/2021 01/10/2025 Overview (09/16/2024): Per chart review hx PE possibly in 2012 Resume home xarelto Self-care deficit 06/02/2021 01/10/2025 Memory impairment 06/02/2021 01/10/2025 Leukocytosis 06/02/2021 06/04/2021 Overview (06/03/2021): Lab Results Component Value Date WBC 8.95 06/03/2021 Improving Tmax 36.7 Etiology likely multifactorial in setting of critical illness Continue to follow May need more aggressive evaluation in near future Wound dehiscence 05/30/2021 06/01/2021 Overview (06/01/2021): S/p OR today for TIRE INSPECTOR shunt revision. ABX to start after OR PO Pain Control PRN Bacterial meningitis 04/30/2021 021 Overview (05/03/2021): -CSF studies were consistent with bacterial meningitis; gram culture and stain negative - was started on antibiotics >12h prior to LP. - s/p shunt removal and EVD 04/29 per NSG -Per chart review, pts brother reports that prior to her TIRE INSPECTOR shunt placement on 02/24/2021 she was able to converse, was more independent, and had no functional deficits. Since the surgery he reports she has not been herself - doesn't talk as much, only responds with yes/no, is confused more often. -CT head 04/26- no acute findings -CT abdomen pelvis 04/26 - no abscess or inflammation around shunt site. Nonspecific left perinephric edema. -urine culture NGTD, blood culture NGTD, COVID negative, CSF: fungal, crypto, meningitis panel negative. Shunt tip NGTD - ID consulted: cefepime 2g IV q8h and metronidazole 500 mg q8h. Continue current vancomycin - pharmacy to dose. 05/01: Will consent for PICC placement if empiric, long-term antibiotic therapy recommended by ID. 05/03: Replace EVD today after holding heparin for 6 hours; post-op, continue to hold heparin for 2 more hours. Refeeding syndrome 04/30/2021 Overview (04/30/2021): Suspected refeeding syndrome in setting of reported poor PO intake and vomiting (poor history details) BHB 3.48 Nutrition consulted, monitoring for refeeding syndrome Gentle fluid resuscitation as needed Optimize electrolyte balances Hyponatremia 04/30/2021 06/01/2021 Overview (05/04/2021): Hypovolemic Hyponatremia Na 124 on admission, 129 at present Cont gentle IV resuscitation Cont to trend with daily labs 05/04: 2 Liter fluid restriction for chronic hyponatremia which may be complicated by polydipsia; continue to monitor. Acute metabolic encephalopathy 04/27/2021 06/01/2021 Overview (04/30/2021): See plan for meningitis Sepsis 04/26/2021 05/13/2021 Overview (04/30/2021): See plan for meningitis Severe nausea 04/08/2021 04/30/2021 DC (myocardial infarction) 02/24/2021 0 02/25/2021 Congenital abnormalities 02/20/202111/2020 Acute deep vein thrombosis ( DVT) of left lower extremity 02/20/2021 04/30/2021 CSF leak 02/18/2021 02/25/2021 Kidney disease 01/07/2021 04/30/2021 Occipital neuralgia 10/01/2017 04/30/20 21 Bilateral myopia 07/23/2017 04/30/2021 Bilateral presbyopia 07/23/2017 021 Regular astigmatism, bilateral 07/23/2017 04/30/2021 Bilateral dry eyes 06/22/2017 Cataract, nuclear sclerotic, both eyes 06/22/2017 04/30/2021 Visual field defect of right eye 06/22/2017 04/30/2021 Blood thinned due to long-te rm anticoagulant use 04/03/2017 04/30/2021 Fall, accidental 04/03/2017 04/30/2021 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 AC on hold Will duplex BLE 05/01: VAS US revealed acute DVT findings. Neurosurgery notified and pending their approval will start IV heparin therapy. 05/02: Started heparin infusion for therapeutic anticoagulation. Therapeutic procedure 07/30/20152020 Osteoarthritis of both knees 06/18/2015 04/30/2021 Plantar fasciitis 06/18/2015 04/30/2021 Posterior tibial tendonitis 06/18/2015 04/30/2021 Foot pain 06/17/2015 04/30/2021 Basal cell carcinoma of face 05/13/2015 04/30/2021 Immunizations Immunization Administration Dates Next Due Influenza, injectable, MDCK, preservative free, quadrivalent 11/24/2022 Influenza, injectable, quadrivalent 05/14/2017,1 10/08/2015 Influenza, injectable, quadr ivalent, preservative free 08/09/2021,07/09/2020,06/04/2019,2016,05/22/2014 Influenza, seasonal, injectable 09/08/19 14,09/20/2012,05/31/2012,2009 [place] COVID-19 Vaccine (Bl ue Cap) 18+ 12/04/2020 Family History Medical History Relation Name Comments Other cancer Brother Diabetes Mother Diabetes Other 1 Other cancer Other 2 Relation Name Status Comments Brother Mother Other 1 Other 2 Social History Tobacco Use Types Packs/Day Years Used Date Smoking Tobacco: Never Smokeless Tobacco: Never Tobacco Cessation:Counseling Given: Not Answered Alcohol Use Standard Drinks/Week Comments No 0 (1 standard drink = 0.6 oz pur e alcohol) Humiliation, Afraid, Rape, and Kick questionnair e Answer Date Recorded Within the last year, have y ou been afraid of your partner or ex-partner? No 01/12/2025 Within the last year, have y ou been humiliated or emotionally abused in other ways by your partner or ex-partner? No Within the last year, have y ou been kicked, hit, slapped, or otherwise physically hurt by your partner or ex-partner? No 01/12/2025 Within the last year, have y ou been raped or forced to have any kind of sexual activity by your partner or ex-partner? No 01/12/2025 Social Connection and Isolation Panel Answer Date Recorded In a typical week, how many times do you talk on the phone with family, friends, or neighbors? More than three times a week 11/18/2024 How often do you get togethe r with friends or relatives? Once a week 11/18/2024 How often do you attend chur or judaism services? Never 11/18/2024 Do you belong to any clubs o r organizations such as sikh groups, unions, fraternal or athletic groups, or school groups? No 11/18/2024 How often do you attend meet ings of the clubs or organizations you belong to? Never 11/18/2024 Are you , , di vorced, , never , or living with a partner? 11/18/2024 AUDIT-C Answer Date Recorded Q1: How often do you have a drink containing alcohol? Never 11/18/2024 Q2: How many drinks containi ng alcohol do you have on a typical day when you are drinking? Patient does not drink Q3: How often do you have si x or more drinks on one occasion? Never 11/18/2024 Overall Financial Resource Strain (CARDIA) Answe r Date Recorded How hard is it for you to pa y for the very basics like food, housing, medical care, and heating? Very hard 11/18/2024 [place] [facility] - Occupational Stress Questionnaire Answer Date Recorded Do you feel stress - tense, restless, nervous, or anxious, or unable to sleep at night because your mind is troubled all the time - these days? Rather much 11/18/2024 Exercise Vital Sign Answer Date Recorde d On average, how many days pe r week do you engage in moderate to strenuous exercise (like a brisk walk)? 0 days 11/18/2024 On average, how many minutes do you engage in exercise at this level? 0 min 11/18/2024 Hunger Vital Sign Answer Date Recorded Within the past 12 months, y ou worried that your food would run out before you got the money to buy more. Sometimes true Within the past 12 months, t he food you bought just didn't last and you didn't have money to get more. Sometimes true PRAPARE - Transportation Answer Date Re corded In the past 12 months, has l ack of transportation kept you from medical appointments or from getting medications? No 12/25 In the past 12 months, has l ack of transportation kept you from meetings, work, or from getting things needed for daily living? No 01/12/2025 Housing Stability Vital Sign Answer Anupam e Recorded In the last 12 months, was t here a time when you were not able to pay the mortgage or rent on time? No 11/06/2023 Number of Places Lived in the Last Year Not on f ile 11/06/2023 In the last 12 months, was t here a time when you did not have a steady place to sleep or slept in a detention (including now)? No 11/06/2023 Housing Stability Vital Sign Answer Anupam e Recorded In the last 12 months, was t here a time when you were not able to pay the mortgage or rent on time? Yes 01/12/2025 In the past 12 months, how m any times have you moved where you were living? 0 01/12/2025 At any time in the past 12 m onths, were you homeless or living in a detention (including now)? No 01/12/2025 Safety and Environment Answer Date Ritesh rded Do you worry that your child may have been physically abused? No 11/18/2024 Do you worry that your child may have been sexua lly abused? No 11/18/2024 Are there any guns kept in o r around your home or where your child spends time? No 11/18/2024 Guns Unloaded or Locked Away Not on file CAGE ASSESSMENT Answer Date Recorded Cage unable to access Not on file 11/16/2023 Cage max number of drinks Not on file 2023 Cage Beverages a week Not on file 11/16/2023 Have you ever felt you should CUT down on your d rinking? 0 11/16/2023 Have you been ANNOYED by people criticizing your drinking? 0 11/16/2023 Have you felt GUILTY about your drinking? 0 11/16/2023 Have you had a drink first t vic in the morning (EYE-TARGET PROTECTION SPECIALIST) to steady your nerves or to get rid of a hangover? 0 11/16/2023 CAGE Questionnaire Score 0 024 Utilities Answer Date Recorded In the past 12 months has e Aug[employer], gas, oil, or water etrigg threatened to shut off services in your home? Yes 01/12/2025 PHQ-2A Answer Date Recorded Depression Risk 2 11/30/2022 Comments No Sex and Gender Information Value Date Recorded Sex Assigned at Female 03/23/2021 5:37 AM EDT Legal Sex Female 8:56 PM EDT Gender Identity Female 03/23/2021 5:37 AM EDT Sexual Orientation Straight 04/29/2021 1: 13 PM EDT Last Filed Vital Signs Vital Sign Reading Time Taken Comments Blood Pressure 129/85 02/05/2025 7:59 PM EDT Pulse 86 02/05/2025 7:59 PM EDT Temperature 36.6 C (97.9 F) 02/05/2025 5:00 PM EDT Respiratory Rate 14 02/05/2025 7:59 PM EDT Oxygen Saturation 95% 02/05/2025 7:59 PM EDT Inhaled Oxygen Concentration - - Weight 74 kg (163 lb 2.3 oz) 02/05/2025 2:04 PM EDT Height 149.9 cm (4' 11.02 ) 01/12/2025 9:00 AM E DT Body Mass Index 32.93 01/12/2025 9:00 AM EDT Plan of Treatment Health Maintenance Due Date Last Done Comments Diabetes: Dental Exam 1970 [facility]-DTaP,Tdap,and Td Vaccines (1 - Tdap) 1979 [facility]-Pneumococcal Vaccine: 50+ Years (1 of 2 - PCV) 1979 [facility]-Pap Smear 01/01/2005 01/01/2002, 09/27, 04/01/2001, Additional history exists CT Colonography 2005 Colonoscopy 2005 FIT-DNA 2005 FIT 2005 FOBT 2005 Sigmoidoscopy 2005 [facility]-Colorectal Cancer Screening 2005 [facility]-Cervical Cancer Screening 01/01/2007 [facility]-HPV/Cotest 01/01/2007 01/01/2002, 09/27, 04/01/2001, Additional history exists [facility]-Breast Cancer Screening 2010 [facility]-RSV Vaccine: 60+ Years or (1 - Risk 50-74 years 1-dose series) 2010 [facility]-Zoster Vaccines (1 of 2) 2010 [facility]-Depression Screening 12/01/2023 11/30/2022 [id number] Vaccine ( season) 2025 09/07/2021, 12/04/2020 [facility]-Diabetes: Hemoglobin A1C 04/27/202509/2024, 11/18/2024, 09/16/2024, Additional history exists [facility]-Influenza Vaccine (#1) 04/27/202511/24, 08/09/2021, 07/09/2020, Additional history exists [facility]-Infant/Child/Adol SDOH Screenings 05/21/2025 11/18/2024 [facility]- SDOH Screenings 07/15/2025 [facility]-Adult SDOH Screenings 07/15/2025 01/12/2025 [facility]-HIV Screening Completed 09/15/2024, , 04/14/2022, Additional history exists [facility]-Hepatitis C Screening Completed 2024, 05/10/2023, 04/14/2022, Additional history exists [facility]-Obesity Intervention Completed 025, 03/11/2024, 12/06/2023, Additional history exists HPV Vaccines (No Doses Required) Completed [facility]-HIB Vaccines Aged Out No longer e ligible based on patient's age to complete this topic [facility]-Hepatitis A Vaccines Aged Out No longer eligible based on patient's age to complete this topic [facility]-IPV Vaccines Aged Out No longer e ligible based on patient's age to complete this topic [facility]-Rotavirus Vaccines Aged Out No lo nger eligible based on patient's age to complete this topic Medical Devices Implanted Type Area Financial Institution Branch Manager Device Identifier Shelf Expiration Date Model / Serial / Lot Knee Knee Left: Knee Catheter Bactiseal Stripe - [id number] Implanted:Qty: 1 on 02/24/2021 by Timbo Mcdaniel MD at [facility] [employer] [facility]-[id number] 09/26/2025 [id number] / / [id number] Certas Plus Inline Siphon - [id number] Implanted:Qty: 1 on 02/24/2021 by Timbo Mcdaniel MD at [facility] [employer] [facility]-[id number] 09/26/2025 [id number] / / [id number] Catheter Bactiseal Stripe - [id number] Implanted:Qty: 1 on 05/05/2021 by Timbo Mcdaniel MD at [facility] [employer] [facility]-[id number] 01/24/2022 [id number] / / [id number] Certas Plus Inline Siphon - [id number] Implanted:Qty: 1 on 05/05/2021 by Timbo Mcdaniel MD at [facility] [employer] [facility]-[id number] 10/24/2025 [id number] / / [id number] Catheter Antibiotic Str Vent - [id number] Implanted:Qty: 1 on 06/01/2021 by Lavon Guillen MD at [facility] [employer] [facility]-[id number] 11/24/2021 [id number] / / [id number] Catheter Bactiseal Stripe - [id number] Implanted:Qty: 1 on 06/22/2023 by Lavon Guillen MD at [facility] [employer] [facility]-[id number] 04/26/2024 [id number] / / [id number] Catheter Codman Passer Disposable 36cm - [id number] Implanted:Qty: 1 on 11/15/2023 by Timbo Mcdaniel MD at [facility] [employer] [facility]-[id number] 03/26/2028 [id number] / / [id number] Catheter Bactiseal Stripe - [id number] Implanted:Qty: 1 on 11/15/2023 by Timbo Mcdaniel MD at [facility] [employer] [facility]-[id number] 07/26/2024 [id number] / / [id number] Catheter Bactiseal Stripe - [id number] Implanted:Qty: 1 on 01/21/2025 by Timbo Mcdaniel MD at [facility] [employer] [facility]-[id number] 11/24/2025 [id number] / / [id number] Certas Plus Inline Siphon - [id number] Implanted:Qty: 1 on 01/21/2025 by Timbo Mcdaniel MD at [facility] [employer] [facility]-[id number] 08/08/2029 [id number] / / [id number] Catheter Antibiotic Str Vent - [id number] Implanted:Qty: 1 on 01/21/2025 by Timbo Mcdaniel MD at [facility] [employer] [facility]-[id number] 10/24/2025 [id number] / / [id number] Procedures Procedure Name Priority Date/Time Associated Diagnosis Comments HEMOGLOBIN A1C Add-On 01/26/2025 2:40 AM EDT HEPATITIS C ANTIBODY - ED W/REFLEX TO HCV QUANT PCR STAT 09/15/2024 6:17 PM EST ED HIV 1/2 ANTIBODY/ANTIGEN SCREEN WITH REFLEX TO HIV I/II DIFFERENTIATION STAT 09/15/2024 6:17 PM EST CYTO DATA CONVERSION Routine 01/01/2002 12:00 AM EDT from Last 3 Months or Most Recently Relevant to Health Maintenance Results * (ABNORMAL) Hemoglobin A1c (01/26/2025 2:40 AM EDT) Pathologist [facility] Hemoglobin A1c 8.6(H) <5.7 % 01/26/2025 11:28 AM EDT [facility] Blood Venous blood specimen / Unknown Venipuncture / Unknown 01/26/2025 2:40 AM EDT 01/26/2025 2:[address] [facility] - 01/26/2025 11:28 AM EDT HA1C Interpretive Data: Diagnosis of Diabetes: Diabetic > or = 6.5% Pre-diabetic 5.7 to 6.4% Non-diabetic < or = 5.6% Glycemic Targets for Type I and Type II Diabetics: Non- Adults <7.0% Adults <6.0% Children and Adolescents <7.5% Source: [place] [employer]. Standards of medical care in diabetes,2017. Diabetes Care.2017:40 (suppl 1):S1-S135. us Pastora Rosenberg APRN LAB BLOOD ORDERABLES Final R esult Performing Organization Address City/[facility]/ZIP Co de Phone Number [facility] [address] [place] [address] * ED HIV 1/2 Antibody/Antigen Screen w/Reflex to HIV 1/2 Differentiation (09/15/2024 6:17 PM EST) [facility] HIV 1 & 2 Antibody/Antigen Screen Non Reactive Non Reactive 09/15/2024 7:07 PM EST [facility] Comment:Screening for HIV 1 & 2 antibodies, and P24 antigen is NONREACTIVE. No confirmatory testing is required. Blood Venous blood specimen / Unknown Venipuncture / Unknown 09/15/2024 6:17 PM EST 09/15/2024 6:25 PM EST us Keli Salvador MD LAB BLOOD ORDERABLES Final R esult [facility] [address] [place] [address] * Hepatitis C Antibody - ED (09/15/2024 6:17 PM EST) [facility] Hepatitis C Antibody Negative Negative 09/15/2024 7:[address] [facility] Blood Venous blood specimen / Unknown Venipuncture / Unknown 09/15/2024 6:17 PM EST 09/15/2024 6:25 PM EST us Keli Salvador MD LAB BLOOD ORDERABLES Final R esult [facility] [address] [place] [address] * (ABNORMAL) Cytology (01/01/2002 12:00 AM EDT) 01/01/2002 01/02/2002 9:5 4 AM EDT Narrative [facility] - 01/13/2002 10:55 AM EDT [facility] MR #: [id number] [facility] [place] [id number] (Age: 41) FW Collect Date: 01/01/2002 00:00 Receipt Date: 01/02/2002 09:54 Page 1 DEPARTMENT OF PATHOLOGY AND LABORATORY MEDICINE CYTOPATHOLOGY REPORT Email: [email or web address] ATTENDING MD/Practitioner: Ina Johnson M.D. Service: [facility] Location: [place] Reported: 01/13/2002 10:55 Collected: 01/01/2002 00:00 INTERPRETATION THIN PREP (CERVICAL/VAGINAL): ATYPICAL SQUAMOUS CELLS, CANNOT EXCLUDE HIGH GRADE VEENA. SATISFACTORY FOR EVALUATION; ENDOCERVICAL/ TRANSFORMATION ZONE COMPONENT PRESENT. Suggest colposcopy. Electronically Signed Out LIMA Ansari(ASCP) Quique Marsh MD Cervical cytology is a screening test primarily for squamous cancers and precursors and has associated false negative and positive results. New technologies such as liquid based sampling may decrease but will not eliminate all false negative results. Regular screening and follow-up of unexplained clinical signs and symptoms are recommended to minimize false negative results. Please see the ASCCP website (www.asccp.org) for followup recommendations. If HPV testing was requested, correlation with the results is suggested (please call Microbiology at [phone] for results). 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 The signing pathologist has performed and is responsible for the reported pathologic evaluation. Bruce Johnson MD LAB PATHOLOGY ORDERABLES F inal Result [facility] from Last 3 Months or Most Recently Relevant to Health Maintenance Insurance [facility] MEDICAID Advance Directives * Full Code (Latest Code Status on File) Date Activated Date Inactivated Comments 11/18/2024 5:41 PM 11/21/2024 4:45 PM * Full Code Date Activated Date Inactivated Comments 09/16/2024 1:20 AM 09/17/2024 11:55 AM Question Answer Comments Patient has decision-making capacity? Yes * Full Code Date Activated Date Inactivated Comments 11/04/2023 7:10 PM 11/16/2023 6:35 PM Question Answer Comments Patient has decision-making capacity? Yes * Full Code Date Activated Date Inactivated Comments 10/16/2023 4:16 PM 10/30/2023 4:20 PM Question Answer Comments Patient has decision-making capacity? Yes * Full Code Date Activated Date Inactivated Comments 07/17/2023 1:59 PM 07/20/2023 8:04 PM Question Answer Comments Patient has decision-making capacity? Yes Care Teams Quality Control Assessor Relationship Specialty Start Date End Date Igor Meyers MD [address] [place] [address] PCP - General 07/09/23 Arlene Spears PA [address] [place] [address] Physician Protection Consultant Neurosurgery 02/14/21 Timbo Mcdaniel MD [address] [place] [address] Surgeon Neurosurgery 02/18/21
--- OUTSIDE RECORDS SUMMARY | 2025-08-12 20:09 | XMS_ITS | Encounter Summary ---
Author Organization [employer] ([place], [place], [place], [place], [place]) Address [address] [place] [address] Care Team Providers Care Bone Process Operator Name Role Phone Igor Meyers MD Primary Care Provider [phone] Provider, Not In System CARBURETOR REBUILDER Primary Care Provid er Unavailable [facility] Connection, Find-A-Doc Primary Care Provider [facility] Connection, Find-A-Doc Primary Care Provider [facility], Provider Not In The System Primary Care Provider Unavailable [facility] Connection, Find-A-Doc Primary Care Provider Encounter Details Date Type Department Care Team (Late st Contact Info) Description 07/27/2019 Transcribed Document [facility] Family Medicine [address] [place] [address] ProviderRufino MD [address] [place] [address] Social History Tobacco Use Types Packs/Day Years Used Date Smoking Tobacco: Never Assessed Comments Unknown Sex and Gender Information Value Date Recorded Sex Assigned at Not on file Legal Sex Female 1:33 PM CDT Gender Identity Not on file Sexual Orientation Not on file documented as of this encounter Miscellaneous Notes * Cerner Conversion Note - Rufino ProviderMD - 07/27/2019 6:33 PM TOOTH CLERK ED Triage Entered On: 07/27/2019 19:17 EST Performed On: 07/27/2019 19:12 EST by HILARY TIRADO, TASSEL MAKING MACHINE OPERATOR Triage Across the Room Chief Complaint : patient has been having lower back pain and pain in bilateral legs. denies urinary symptoms Triage Date/Time : 07/27/2019 19:12 EST HILARY TIRADO RN - 07/27/2019 19:12 EST DCP GENERIC CODE Tracking Acuity : 3 - Urgent Tracking Group : [facility] HILARY TIRADO RN - 07/27/2019 19:12 EST Mode of Arrival : Ambulatory Transported to ED by : Private vehicle To Room Via : Ambulate Accompanied By : Friend ED Vital Signs : Document Height & Weight : Document ED Allergies : Document ED Reason for Visit : Document Tetanus Immunization : Less than 5 years HILARY TIRADO RN - 07/27/2019 19:12 EST Infectious Disease History Infectious Disease History : Chicken pox/Shingles, Herpes, Measles, Mumps Fever/Chills Last 48 Hours : Yes Experiencing Infectious Disease Symptoms : No symptoms Travel To Regions with Travel Advisories : No Travel Outside [place] Within Last 30 Days : No Contact With Traveler to Advisory Region : No Tuberculosis Symptoms : None HILARY TIRADO RN - 07/27/2019 19:12 EST Vital Signs ED Temperature Source : Oral Temperature Mode : Fahrenheit Temperature, Fahrenheit : 98.6 Deg F ED Pain : Yes Clinical Temperature, C : 37 Deg C Oxygen Therapy Mode : Room air Peripheral Pulse Rate : 74 bpm Respiratory Rate : 18 Breaths/Min Blood Pressure Location : Arm, left upper Blood Pressure Source : Non-Invasive BP Device Systolic Blood Pressure : 163 mmHg (HI) Diastolic Blood Pressure : 79 mmHg Oxygen Saturation : 98 % HILARY TIRADO RN - 07/27/2019 19:12 EST Allergy (As Of: 07/27/2019 19:17:30 EST) Allergies (Active) sulfADIAZINE Estimated Onset Date: Unspecified ; Reactions: itching ; Created By: Ella Phelan Rn; Reaction Status: Active ; Category: Drug ; Substance: sulfADIAZINE ; Type: Allergy ; Severity: Severe ; Updated By: Ella Phelan Rn; Reviewed Date: 07/27/2019 19:16 EST sulfonamides Estimated Onset Date: Unspecified ; Reactions: Itching, Rash ; Created By: Diana Michel, Pharmacist-Resident; Reaction Status: Active ; Category: Drug ; Substance: sulfonamides ; Type: Allergy ; Severity: Moderate ; Updated By: Diana Michel, Pharmacist-Resident; Source: Patient ; Reviewed Date: 07/27/2019 19:16 EST Diagnosis Control ED (As Of: 07/27/2019 19:17:30 EST) Problems(Active) Apnea, sleep (SNOMED CT :657130701 ) Name of Problem: Apnea, sleep ; Recorder: Sheryl Burnett RN; Confirmation: Confirmed ; Classification: Patient Stated ; Code: [id number] ; Contributor System: PsykosoftChart ; Last Updated: 08/12/2014 20:25 EST ; Life Cycle Date: 08/12/2014 ; Life Cycle Status: Active ; Vocabulary: SNOMED CT Chronic CHF (SNOMED CT :671904062 ) Name of Problem: Chronic CHF ; Recorder: Sheryl Burnett RN; Confirmation: Confirmed ; Classification: Patient Stated ; Code: 531421749 ; Contributor System: PowerChart ; Last Updated: 08/12/2014 20:25 EST ; Life Cycle Date: 08/12/2014 ; Life Cycle Status: Active ; Vocabulary: SNOMED CT COPD (chronic obstructive pulmonary disease) with emphysema (SNOMED CT :722126154 ) Name of Problem: COPD (chronic obstructive pulmonary disease) with emphysema ; Recorder: Sheryl Burnett RN; Confirmation: Confirmed ; Classification: Patient Stated ; Code: 108139234 ; Contributor System: PsykosoftChart ; Last Updated: 08/12/2014 20:25 EST ; Life Cycle Date: 08/12/2014 ; Life Cycle Status: Active ; Vocabulary: SNOMED CT Diabetes (SNOMED CT :073475367 ) Name of Problem: Diabetes ; Recorder: Sheryl Burnett RN; Confirmation: Confirmed ; Classification: Patient Stated ; Code: 297721399 ; Contributor System: PsykosoftChart ; Last Updated: 08/12/2014 20:24 EST ; Life Cycle Date: 08/12/2014 ; Life Cycle Status: Active ; Vocabulary: SNOMED CT Genital herpes (SNOMED CT :60094038 ) Name of Problem: Genital herpes ; Recorder: Sheryl Burnett RN; Confirmation: Confirmed ; Classification: Patient Stated ; Code: 42125471 ; Contributor System: PowerChart ; Last Updated: 08/12/2014 20:25 EST ; Life Cycle Date: 08/12/2014 ; Life Cycle Status: Active ; Vocabulary: SNOMED CT History of obstructive sleep apnea (IMO :07055543 ) Name of Problem: History of obstructive sleep apnea ; Recorder: SYSTEM, SYSTEM; Confirmation: Confirmed ; Classification: Medical ; Code: 76326033 ; Last Updated: 03/07/2018 10:59 EDT ; Life Cycle Date: 03/07/2018 ; Life Cycle Status: Active ; Vocabulary: IMO HTN (hypertension) (SNOMED CT :6726083560 ) Name of Problem: HTN (hypertension) ; Recorder: Sheryl Burnett RN; Confirmation: Confirmed ; Classification: Patient Stated ; Code: 1642290924 ; Contributor System: PowerChart ; Last Updated: 08/12/2014 20:24 EST ; Life Cycle Date: 08/12/2014 ; Life Cycle Status: Active ; Vocabulary: SNOMED CT Hydrocephalus (SNOMED CT :612823111 ) Name of Problem: Hydrocephalus ; Recorder: Sheryl Burnett RN; Confirmation: Confirmed ; Classification: Patient Stated ; Code: 075695438 ; Contributor System: PowerChart ; Last Updated: 08/12/2014 20:24 EST ; Life Cycle Date: 08/12/2014 ; Life Cycle Status: Active ; Vocabulary: SNOMED CT Hyperlipemia (SNOMED CT :91523623 ) Name of Problem: Hyperlipemia ; Recorder: Sheryl Burnett RN; Confirmation: Confirmed ; Classification: Patient Stated ; Code: 74111818 ; Contributor System: PowerChart ; Last Updated: 08/12/2014 20:24 EST ; Life Cycle Date: 08/12/2014 ; Life Cycle Status: Active ; Vocabulary: SNOMED CT Myocardial infarction (SNOMED CT :42179323 ) Name of Problem: Myocardial infarction ; Recorder: Sheryl Burnett RN; Confirmation: Confirmed ; Classification: Patient Stated ; Code: 21551827 ; Contributor System: PowerChart ; Last Updated: 08/12/2014 20:25 EST ; Life Cycle Date: 08/12/2014 ; Life Cycle Status: Active ; Vocabulary: SNOMED CT Diagnoses(Active) Back pain Date: 07/27/2019 ; Diagnosis Type: Reason For Visit ; Confirmation: Complaint of ; Clinical Dx: Back pain ; Classification: Medical ; Clinical Service: Emergency medicine ; Code: PNED ; Probability: 0 ; Diagnosis Code: [id number] ED Height and Weight Height Source : Stated Height Entry Format : [place] Height, Feet : 4 ft(Converted to: 122 cm, 48 Inch) Height, Inches : 11 Inch(Converted to: 0 ft 11 Inch, 27.94 cm) Clinical Height : 149.86 cm Weight Source, ED : Standing scale Weight Entry Format : [place] Weight, Pounds : 194 lb Weight, Ounces : 5 oz Clinical Dosing Weight : 88.32 kg Body Surface Area (BSA) : 1.82 m2 Body Mass Index : 39.3 kg/m2 (HI) [place] Body Weight (IBW) : 42.87 kg HILARY TIRADO RN - 07/27/2019 19:12 EST Pain Assessment Pain Assessment : Initial assessment Pain Scale Used : 0-10 Scale HILARY TIRADO RN - 07/27/2019 19:12 EST Pain Scale Intensity : 8 HILARY TIRADO RN - 07/27/2019 19:12 EST Image 4 - Images currently included in the form version of this document have not been included in the text rendition version of the form. ED Influenza/Pneumoccocal Vaccine Influenza Immunization, Current Season : Yes Previous Vaccines from Immunization Schedule : No qualifying data available. HILARY TIRADO RN - 07/27/2019 19:12 EST Electronically signed by Alphonse [facility] Conversion Supervisor Inspection Cerner at 12/10/2022 6:33 PM CDT documented in this encounter Plan of Treatment Not on file documented as of this encounter Visit Diagnoses Not on filedocumented in this encounter Care Teams Bone Process Operator Relationship Specialty Start Date End Date Igor Meyers MD [address] [place] [address] PCP - General Family Medicine 11/23/22 08/22/23 Provider, Not In System, CHRISTIAN SALAZAR PCP - General 08/23/23 08/27/24 [facility] Connection, Find-A-Doc [facility] Find-a-Doc [place], [place] [id number] PCP - General 08/28/24 11/06/24 [facility] Connection, Find[facility]A-Doc [facility] [place] [address] PCP - General 11/07/24 02/22/25 [facility], Provider Not In The System, [place] [address] PCP - General 02/23/25 06/26/25 [facility] Connection, Find-A-Doc [facility] [place] [address] PCP - General 06/27/25 documented as of this encounter
--- OUTSIDE RECORDS SUMMARY | 2025-08-12 20:09 | XMS_ITS ---
Author Organization Healthcare Address [address] [place] [address] Care Team Providers Care Senior Front End Engineer Name Role Phone Arlene Spears Unavailable [phone] Timbo Mcdaniel MD Unavailable [phone] Igor Meyers MD Primary Care Provider [phone] Active Problems Problem Noted Date Diagnosed Date Feeding difficulty in adult 01/26/2025 Assessment & Plan (01/27/2025 7:08 AM EDT): - WINDOWS DEPLOYMENT TECHNICIAN consulted - 01/22 MBS: Easy to chew (IDDSI Level 7) diet w/ thin liquids (Level 0). Straws ok, single sips only. Meds as able. Dysphagia tx w/ repeat instrumental exam in ~5-7 days. 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 - Would check CBC with [...] negative CSF culture to place a new SOLAR INSTALLATION TECHNICIAN shunt device. - Would check CBC with [...] negative CSF culture to place a new SOLAR INSTALLATION TECHNICIAN shunt device. - Would check CBC with [...] negative CSF culture to place a new SOLAR INSTALLATION TECHNICIAN shunt device. - Would check CBC with [...] recommendations: acute rehab - medically ready S/P SOLAR INSTALLATION TECHNICIAN shunt 06/14/2023 Assessment & Plan (01/27/2025 7:08 [...] negative CSF culture to place a new SOLAR INSTALLATION TECHNICIAN shunt device. - Would check CBC with diff, CMP at least twice a week while on IV antibiotics. - CSF: NG - completed 14 day course of Nafcillin on 01/25 - Neuro checks q4h - 62 resumed ASA 81 mg - Resuming home [...] negative CSF culture to place a new SOLAR INSTALLATION TECHNICIAN shunt device. - Would check CBC with [...] two months ago - A1c 8.6 on 6/2 - Continue sliding scale insulin - resume [...] negative CSF culture to place a new SOLAR INSTALLATION TECHNICIAN shunt device. - Would check CBC with [...] negative CSF culture to place a new SOLAR INSTALLATION TECHNICIAN shunt device. - Would check CBC with diff, CMP at least twice a week while on IV antibiotics. - CSF: NG - completed 14 day course of Nafcillin on 01/25 - Neuro checks q4h - /2 resumed ASA 81 mg - Resuming home [...] (01/26/2025 8:24 AM EDT): - resume atorvastatin Current Treatment and Therapy Plans No current plan information found. Past Treatment and Therapy Plans No past plan information found. Lifetime Dose Tracking * Chemical Lifetime Dose Automatic Entry Manual Entr y Fluoro Time 2.6 minutes 2.6 minutes 0 minutes Air Kerma 32.8 mGy 32.8 mGy 0 mGy Air Kerma Area Product 98.55 Gym 98.55 Gym 0 Gym Resolved Problems Problem Noted Date Diagnosed Date Resolved Date Adjustment disorder 11/18/2024 01/11/20 25 Cellulitis of chest wall 10/24/2023 Breast abscess 10/22/2023 01/10/2025 Overview (10/25/2023): Complication of SOLAR INSTALLATION TECHNICIAN shunt 10/18 I&D, drain in place Flagyl, [...] 06/01/2021 Overview (06/01/2021): S/p OR today for SOLAR INSTALLATION TECHNICIAN shunt revision. ABX to start after OR PO Pain Control PRN Bacterial meningitis 04/30/2021 021 Overview (05/03/2021): -CSF studies were consistent with bacterial meningitis; gram culture and stain negative - was started on antibiotics >12h prior to LP. - s/p shunt removal and EVD 04/29 per NSG -Per chart review, pts brother reports that prior to her SOLAR INSTALLATION TECHNICIAN shunt placement on 02/24/2021 she was able [...] plan for meningitis Severe nausea 04/08/2021 04/30/2021 [place] (myocardial infarction) 02/24/2021 0 02/25/2021 Congenital abnormalities [...]
--- OUTSIDE RECORDS SUMMARY | 2025-08-12 20:09 | XMS_ITS | Encounter Summary ---
Author Organization [employer] ([place], [place], [place], [place], [place]) Address [address] [place] [address] Care Team Providers Care Cna Per Diem Name Role Phone Igor Myeers MD Primary Care Provider [phone] Provider, Not In System GUN SEALING MACHINE OPERATOR Primary Care Provid er Unavailable [facility] Connection, Find-A-Doc Primary Care Provider [facility] Connection, Find-A-Doc Primary Care Provider [facility], Provider Not In The System Primary Care Provider Unavailable [facility] Connection, Find-A-Doc Primary Care Provider Encounter Details Date Type Department Care Team (Late st Contact Info) Description 07/02/2019 Transcribed Document [facility] [place] [address] [place] [address] ProviderRufino MD [address] [place] [address] Social History Tobacco Use Types Packs/Day Years Used Date Smoking Tobacco: Never Assessed Comments Unknown Sex and Gender Information Value Date Recorded Sex Assigned at Not on file Legal Sex Female 1:33 PM CDT Gender Identity Not on file Sexual Orientation Not on file documented as of this encounter Miscellaneous Notes * Cerner Conversion Note - Rufino ProviderMD - 07/02/2019 5:22 PM UNDERCOVER AGENT ED Discharge Entered On: 07/02/2019 17:23 EST Performed On: 07/02/2019 17:22 EST by LAURA NASSAR personal care assistant Process Patient Disposition : Discharge Personal Belongings With Patient : Yes Patient Education Completed : Yes Teaching Evaluation : Verbalizes understanding Education Comment : dc'd in good condition. pwd resp even nonlabored. gave thanks for tx ambulated out of ed with steady gait in and IV Discontinued : Not applicable Nursing Documentation Completed : Yes CESARIO, LAURA Mae RN - 07/02/2019 17:22 EST Electronically signed by [facility], [facility] Conversion Wood Form Builder Cerner at 12/10/2022 6:42 PM CDT documented in this encounter Plan of Treatment Not on file documented as of this encounter Visit Diagnoses Not on filedocumented in this encounter Care Teams Cna Per Diem Relationship Specialty Start Date End Date Igor Meyers MD [address] [place] [address] PCP - General Family Medicine 11/23/22 08/22/23 Provider, Not In System, CHRISTIAN SALAZAR PCP - General 08/23/23 08/27/24 [facility] Connection, Find-A-Doc [facility] [place] [address] PCP - General 08/28/24 11/06/24 [facility] Connection, Find-A-Doc [facility] [place] [address] PCP - General 11/07/24 02/22/25 [facility], Provider Not In The System, [address] [place] [address] PCP - General 02/23/25 06/26/25 [facility] Connection, Find-A-Doc [facility] [place] [address] PCP - General 06/27/25 documented as of this encounter
--- OUTSIDE RECORDS SUMMARY | 2025-08-12 20:09 | XMS_ITS | Encounter Summary ---
Author Organization [employer] ([place], [place], [place], [place], [place]) Address [address] [place] [address] Care Team Providers Care Soccer Player Name Role Phone Igor Meyers MD Primary Care Provider [phone] Provider, Not In System WELDING EQUIPMENT REPAIRER Primary Care Provid er Unavailable [facility] Connection, Find-A-Doc Primary Care Provider [facility] Connection, Find-A-Doc Primary Care Provider [facility], Provider Not In The System Primary Care Provider Unavailable [facility] Connection, Find-A-Doc Primary Care Provider Encounter Details Date Type Department Care Team (Late st Contact Info) Description 07/27/2019 Transcribed Document [facility] Family [place] [address] ProviderRufino MD [address] [place] [address] Social History Tobacco Use Types [...] - Rufino ProviderMD - 07/27/2019 9:40 PM POSITION CLASSIFICATION SPECIALIST ED Event Note Entered On: 07/27/2019 21:40 EST Performed On: 07/27/2019 21:40 EST by Pastora Fajardo RN ED Event Note ED Event Date/Time : 07/27/2019 21:40 EST ED Description of Event : patient friend Almaz Clemons here to drive pt home. Signed d/c form. Pastora Fajardo RN - 07/27/2019 21:40 EST Electronically signed by [facility], [facility] Conversion Community Health Coordinator Cerner at 12/10/2022 6:26 PM CDT documented in this encounter Plan of Treatment Not on file documented as of this encounter Visit Diagnoses Not on filedocumented in this encounter Care Teams Soccer Player Relationship Specialty Start Date End Date Igor Meyers MD [address] [place] [address] PCP - General Family Medicine 11/23/22 08/22/23 Provider, Not In System, CHRISTIAN SALAZAR PCP - General 08/23/23 08/27/24 [facility] Connection, Find[facility]A-Doc [facility] Find-a-Doc [place], [place] [id number] PCP - General 08/28/24 11/06/24 [facility] Connection, Find[facility]A-Doc [facility] [place] [address] PCP - General 11/07/24 02/22/25 [facility], Provider Not In The System, [address] [place] [address] PCP - General 02/23/25 06/26/25 [facility] Connection, Find-A-Doc [facility] Find-a-Doc [place], [place] [id number] PCP - General 06/27/25 documented as of this encounter
--- OUTSIDE RECORDS SUMMARY | 2025-08-12 20:09 | XMS_ITS | Encounter Summary ---
Author Organization Healthcare Address [address] [place] [address] Care Team Providers Care Dragsaw Operator Name Role Phone Leobardo Jones Primary Care Provider [phone] Arlene Spears Unavailable [phone] Timbo Mcdaniel MD Unavailable [phone] Igor Meyers MD Primary Care Provider [phone] Encounter Details Date Type Department Care Team (Late st Contact Info) Description 06/19/2023 Lab Requisition [facility] [address] [place] [address] Gustabo Devries MD [address] [facility] [address] [place] [id number] Encounter for general adult medical examination without [...] drink first t vic in the morning (EYE-POLISHER BRASS) to steady your nerves or to get [...] LIANE AURIS SURVEILLANCE BY PCR Routine 06/19/2023 9:45 PM EDT Encounter for general adult medical examination without abnormal findings documented in this encounter Results * Liane auris Surveillance by PCR (06/19/2023 9:45 PM EDT) Liane auris PCR Result Not Detected Not Detected 06/21/2023 5:31 AM EDT [facility] Swab (Axilla and Groin) 06/19/2023 9:45 PM EDT 06/19/2023 10:46 PM EDT Narrative [facility] - 06/21/2023 5:31 AM EDT This PCR assay was developed and its performance characteristics determined by [facility] as appropriate for clinical purposes. This assay has not been cleared or approved by the FDA, but is performed in a CLIA regulated laboratory that is qualified to perform high-complexity testing. Gustabo Devries MD LAB MICROBIOLOGY - GEN ERAL ORDERABLES Final Result [facility] [address] [place] [address] documented in this encounter Visit Diagnoses Diagnosis [...] documented as of this encounter Care Teams Dragsaw Operator Relationship Specialty Start Date End Date Leobardo Jones [place] [id number] PCP - General 01/07/21 07/08/23 Igor Meyers MD [address] [place] [address] PCP - General 07/09/23 Arlene Spears PA [address] [facility] [place] [address] Physician Vault Manager Neurosurgery 02/14/21 Timbo Mcdaniel MD [address] [facility] [address] [place] [address] Surgeon Neurosurgery 02/18/21 documented as of this encounter
--- OUTSIDE RECORDS SUMMARY | 2025-08-12 20:09 | XMS_ITS | Encounter Summary ---
Author Organization [employer] ([place], [place], [place], [place], [place]) Address [address] [place] [address] Care Team Providers Care Driver Name Role Phone Igor Meyers MD Primary Care Provider [phone] Provider, Not In System COMPUTER AIDED DESIGN DESIGNER Primary Care Provid er Unavailable [facility] Connection, Find-A-Doc Primary Care Provider [facility] Connection, Find[facility]A-Doc Primary Care Provider [facility], Provider Not In The System Primary Care Provider Unavailable [facility] Connection, Find-A-Doc Primary Care Provider Encounter Details Date Type Department Care Team (Late st Contact Info) Description 07/02/2019 Transcribed Document [facility] Family Medicine [address] [place] [address] ProviderRufino MD [address] [place] [address] Social History Tobacco Use Types Packs/Day Years Used Date Smoking Tobacco: Never Assessed Comments Unknown Sex and Gender Information Value Date Recorded Sex Assigned at Not on file Legal Sex Female 1:33 PM CDT Gender Identity Not on file Sexual Orientation Not on file documented as of this encounter Miscellaneous Notes * Cerner Conversion Note - Rufino ProviderMD - 07/02/2019 4:27 PM BANK RUNNER Electronically signed by Alphonse [facility] Conversion Produce Specialist Cerner at 12/10/2022 6:43 PM CDT documented in this encounter Plan of Treatment Not on file documented as of this encounter Visit Diagnoses Not on filedocumented in this encounter Care Teams Driver Relationship Specialty Start Date End Date Igor Meyers MD [address] [place], [place] [address] [address] PCP - General Family Medicine 11/23/22 08/22/23 Provider, Not In System, CHRISTIAN SALAZAR PCP - General 08/23/23 08/27/24 [facility] Connection, Find-A-Doc [facility] Find-a-Doc [place], [place] [id number] PCP - General 08/28/24 11/06/24 [facility] Connection, Find[facility]A-Doc [facility] [place] [address] PCP - General 11/07/24 02/22/25 [facility], Provider Not In The System, [place] [address] PCP - General 02/23/25 06/26/25 [facility] Connection, Find-A-Doc [facility] Find-a-Doc [place], [place] [id number] PCP - General 06/27/25 documented as of this encounter
--- OUTSIDE RECORDS SUMMARY | 2025-08-12 20:09 | XMS_ITS | Encounter Summary ---
Author Organization [employer] ([place], [place], [place], [place], [place]) Address [address] [place] [address] Care Team Providers Care Animal Keeper Name Role Phone Igor Meyers MD Primary Care Provider [phone] Provider, Not In System CLOCKSMITH Primary Care Provid er Unavailable [facility] Connection, Find-A-Doc Primary Care Provider [facility] Connection, [facility]A-Doc Primary Care Provider [facility], Provider Not In The System Primary Care Provider Unavailable [facility] Connection, Find-A-Doc Primary Care Provider Encounter Details Date Type Department Care Team (Late st Contact Info) Description 08/11/2019 Transcribed Document [facility] [place] [facility] [place] [address] ProviderRufino MD [address] [place] [address] Social History Tobacco Use Types Packs/Day Years Used Date Smoking Tobacco: Never Assessed Comments Unknown Sex and Gender Information Value Date Recorded Sex Assigned at Not on file Legal Sex Female 1:33 PM CDT Gender Identity Not on file Sexual Orientation Not on file documented as of this encounter Miscellaneous Notes * Cerner Conversion Note - Rufino ProviderMD - 08/11/2019 5:56 PM DIAMOND GRINDER Pain Assessment Entered On: 08/11/2019 18:49 EST Performed On: 08/11/2019 18:49 EST by Amber Mccann, RN Intervention Information: ketorolac Performed by Amber Mccann, RN on 08/11/2019 18:14:00 EST ketorolac,30mg IV Push,Peripheral Line 1 Pain Assessment Pain Assessment : Follow-up assessment Pain Scale Used : 0-10 Scale Amber Mccann, RN - 08/11/2019 18:49 EST Pain Scale Intensity : 3 Amber Mccann, RN - 08/11/2019 18:49 EST Image 4 - Images currently included in the form version of this document have not been included in the text rendition version of the form. Electronically signed by [facility], [facility] Conversion Radiation Therapist Cerner at 12/10/2022 6:29 PM CDT documented in this encounter Plan of Treatment Not on file documented as of this encounter Visit Diagnoses Not on filedocumented in this encounter Care Teams Animal Keeper Relationship Specialty Start Date End Date Igor Meyers MD [address] [place] [address] PCP - General Family Medicine 11/23/22 08/22/23 Provider, Not In System, CHRISTIAN SALAZAR PCP - General 08/23/23 08/27/24 [facility] Connection, Find-A-Doc [facility] [place], [place] [id number] PCP - General 08/28/24 11/06/24 [facility] Connection, Find-A-Doc [facility] [place] [address] PCP - General 11/07/24 02/22/25 [facility], Provider Not In The System, [place] [address] PCP - General 02/23/25 06/26/25 [facility] Connection, Find-A-Doc [facility] Find-a-Doc [place], [place] [id number] PCP - General 06/27/25 documented as of this encounter
--- OUTSIDE RECORDS SUMMARY | 2025-08-12 20:09 | XMS_ITS | Encounter Summary ---
Author Organization [employer] ([place], [place], [place], [place], [place]) Address [address] [place] [address] Care Team Providers Care Senior Technical Manager Name Role Phone Igor Meyers MD Primary Care Provider [phone] Provider, Not In System ACID LEVELER Primary Care Provid er Unavailable [facility] Connection, Find-A-Doc Primary Care Provider [facility] Connection, [facility]A-Doc Primary Care Provider [facility], Provider Not In The System Primary Care Provider Unavailable [facility] Connection, Find-A-Doc Primary Care Provider Encounter Details Date Type Department Care Team (Late st Contact Info) Description 07/02/2019 Transcribed Document [facility] [place] [address] [place] [address] ProviderRufino MD [address] [place] [address] Social History Tobacco Use Types Packs/Day Years Used Date Smoking Tobacco: Never Assessed Comments Unknown Sex and Gender Information Value Date Recorded Sex Assigned at Not on file Legal Sex Female 1:33 PM CDT Gender Identity Not on file Sexual Orientation Not on file documented as of this encounter Miscellaneous Notes * Cerner Conversion Note - Rufino ProviderMD - 07/02/2019 1:31 PM SERVICE DESK ANALYST ED Assessment Entered On: 07/02/2019 17:21 EST Performed On: 07/02/2019 15:30 EST by LAURA NASSAR STRAW HAT PRESSER General-Functional Assess Information Obtained From : Patient Preferred Communication Mode : Verbal Communication Barrier : None Primary Language : Dutch Any Spiritual/Cultural Needs or Requests : No Currently in Unsafe Situation : No LAURA NASSAR RN - 07/02/2019 17:20 EST Social Habits Smoking Status : Never (less than 100 in lifetime; none in last 30 days) Smokeless Tobacco Status : Never Desires Tobacco Cessation Calc : 0 LAURA NASSAR RN - 07/02/2019 17:20 EST Social History (As Of: 07/02/2019 17:21:15 EST) Tobacco: Smoking Status Never smoker. (Last Updated: 08/12/2014 20:30:11 EST by Sheryl Burnett, DENZEL) Alcohol: Use in Last 12 Months: No. (Last Updated: 08/12/2014 20:30:02 EST by Sheryl Burnett, RN) Substance Abuse: Drug Use Hx: No. Use in Last 12 Months: No. (Last Updated: 08/12/2014 20:30:16 EST by Sheryl Burnett, RN) Home/Environment: Lives with Alone. Home equipment: CPAP/BiPAP, Glucose monitoring. (Last Updated: 08/12/2014 20:30:08 EST by Sheryl Burnett, DENZEL) Musculoskeletal Musculoskeletal Assessment Comment : c.o chronic low back pain, pwd ambulates without difficulty nad noted LAURA NASSAR RN - 07/02/2019 17:20 EST Electronically signed by Alphonse [facility] Conversion Guard Rail Installer Cerner at 12/10/2022 6:34 PM CDT documented in this encounter Plan of Treatment Not on file documented as of this encounter Visit Diagnoses Not on filedocumented in this encounter Care Teams Senior Technical Manager Relationship Specialty Start Date End Date Igor Meyers MD [address] [place] [address] PCP - General Family Medicine 11/23/22 08/22/23 Provider, Not In System, CHRISTIAN SALAZAR PCP - General 08/23/23 08/27/24 [facility] Connection, Find-A-Doc [facility] Find-a-Doc [place], [place] [id number] PCP - General 08/28/24 11/06/24 [facility], Find-A-Doc [facility] [place] [address] PCP - General 11/07/24 02/22/25 [facility], Provider Not In The System, [place] [address] PCP - General 02/23/25 06/26/25 [facility] Connection, Find-A-Doc [facility] [place] [address] PCP - General 06/27/25 documented as of this encounter
--- OUTSIDE RECORDS SUMMARY | 2025-08-12 20:09 | XMS_ITS | Encounter Summary ---
Author Organization [employer] ([place], [place], [place], [place], [place]) Address [address] [place] [address] Care Team Providers Care Spinning Doffer Name Role Phone Igor Meyers MD Primary Care Provider [phone] Provider, Not In System ECOTHERAPIST Primary Care Provid er Unavailable [facility] Connection, Find-A-Doc Primary Care Provider [facility] Connection, Find[facility]A-Doc Primary Care Provider [facility], Provider Not In The System Primary Care Provider Unavailable [facility] Connection, Find-A-Doc Primary Care Provider Encounter Details Date Type Department Care Team (Late st Contact Info) Description 07/27/2019 Transcribed Document [facility] [place] [address] [place] [address] ProviderRufino MD [address] [place] [address] Social History Tobacco Use Types Packs/Day Years Used Date Smoking Tobacco: Never Assessed Comments Unknown Sex and Gender Information Value Date Recorded Sex Assigned at Not on file Legal Sex Female 1:33 PM CDT Gender Identity Not on file Sexual Orientation Not on file documented as of this encounter Miscellaneous Notes * Cerner Conversion Note - Rufino ProviderMD - 07/27/2019 9:16 PM PRIMARY PRODUCTS INSPECTORS Electronically signed by Alphonse [facility] Conversion Oncology Technician Cerner at 12/10/2022 6:46 PM CDT documented in this encounter Plan of Treatment Not on file documented as of this encounter Visit Diagnoses Not on filedocumented in this encounter Care Teams Spinning Doffer Relationship Specialty Start Date End Date Igor Meyers MD [address] [place], [place] [address] [address] PCP - General Family Medicine 11/23/22 08/22/23 Provider, Not In System, CHRISTIAN SALAZAR PCP - General 08/23/23 08/27/24 [facility] Connection, Find-A-Doc [facility] Find-a-Doc [place], [place] [id number] PCP - General 08/28/24 11/06/24 [facility] Connection, Find[facility]A-Doc [facility] [place] [address] PCP - General 11/07/24 02/22/25 [facility], Provider Not In The System[place] [address] PCP - General 02/23/25 06/26/25 [facility] Connection, Find-A-Doc [facility] Find-a-Doc [place], [place] [id number] PCP - General 06/27/25 documented as of this encounter
--- OUTSIDE RECORDS SUMMARY | 2025-08-12 20:09 | XMS_ITS | Encounter Summary ---
Author Organization Healthcare Address [address] [place] [address] Care Team Providers Care Pharmacy Technology Instructor Name Role Phone Leobardo Jones Primary Care Provider [phone] Arlene Spears Unavailable [phone] Timbo Mcdaniel MD Unavailable [phone] Igor Meyers MD Primary Care Provider [phone] Encounter Details Date Type Department Care Team (Late st Contact Info) Description 06/18/2023 Lab Requisition [facility] [address] [place] [address] Will Argueta MD [address] [facility] [address] [place] [address] Social History Tobacco Use Types Packs/Day Years [...] Have you had a drink first t ivc in the morning (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 Wish to be (Past 1 Month) No 06/21/2023 8:00 PM EDT Prince Palomares RN 2. Non-Specific Active Suicidal Thoughts (Past 1 Month) No 06/21/2023 8:00 PM EDT Prince Palomares RN 6. Suicidal Behavior (Lifetime) No 06/21/2023 8:00 PM EDT Prince Palomares RN documented as of this encounter Mental Status * Question Answer Entry Date Author Precautions Fall risk;[facility] surveillance 06/21/2023 8:00 PM EDT Markel Palomares RN documented in this encounter Plan of Treatment Not on file documented as of this encounter Procedures Procedure Name Priority Date/Time Associated Diagnosis Comments LIANE AURIS SURVEILLANCE BY PCR Routine 06/18/2023 5:30 AM EDT documented in this encounter Results * Liane auris Surveillance by PCR (06/18/2023 5:30 AM EDT) Liane auris PCR Result Not Detected Not Detected 06/19/2023 11:37 AM EDT [facility] Swab (Axilla and Groin) 06/18/2023 5:30 AM EDT 06/18/2023 7:06 AM EDT Narrative [facility] - 06/19/2023 11:37 AM EDT This PCR assay was developed and its performance characteristics determined by [facility] as appropriate for clinical purposes. This assay has not been cleared or approved by the FDA, but is performed in a CLIA regulated laboratory that is qualified to perform high-complexity testing. Will Jorge MD LAB MICROBIOLOGY - GENERAL ORDERABLES Final Result [facility] [address] [place] [address] documented in this encounter Visit Diagnoses Not on filedocumented in this encounter Additional Health Concerns Infection [...] documented as of this encounter Care Teams Pharmacy Technology Instructor Relationship Specialty Start Date End Date Leobardo Jones [address] [id number] PCP - General 5/14/21 11/12/23 Igor Meyers MD [address] [place] [address] PCP - General 07/09/23 Arlene Spears PA [address] [place] [address] Physician Bullet Swaging Machine Operator Neurosurgery 02/14/21 Timbo Mcdaniel MD [address] [place] [address] Surgeon Neurosurgery 02/18/21 documented as of this encounter
--- OUTSIDE RECORDS SUMMARY | 2025-08-12 20:09 | XMS_ITS | Encounter Summary ---
Author Organization [email or web address] ([place], [place], [place], [place], [place]) Address [address] [place] [address] Care Team Providers Care Pediatric Neuropsychologist Name Role Phone Igor Meyers MD Primary Care Provider [phone] Provider, Not In System WOUND CARE SPECIALIST Primary Care Provid er Unavailable [facility] Connection, [facility] Primary Care Provider [facility], [facility] Primary Care Provider [facility], Provider Not In The System Primary Care Provider Unavailable [facility], [facility] Primary Care Provider Encounter Details Date Type Department Care Team (Late st Contact Info) Description 07/27/2019 Transcribed Document [facility] [address] ProviderRufino MD [address] [place] [address] Social History Tobacco Use Types Packs/Day Years Used Date Smoking Tobacco: Never Assessed Comments Unknown Sex and Gender Information Value Date Recorded Sex Assigned at Not on file Legal Sex Female 1:33 PM CDT Gender Identity Not on file Sexual Orientation Not on file documented as of this encounter Miscellaneous Notes * Cerner Conversion Note - Rufino ProviderMD - 07/27/2019 8:00 PM SUGAR SAMPLER Patient: ROBERTO RANDLE Age: 58 years Sex: Female : 1960 Associated Diagnoses: Back pain; Back pain; HTN (hypertension) Author: FRANTZ ALVARADO MD-EMR Basic Information Time seen: Date & time 07/27/2019 19:45:00. History source: Patient. Arrival mode: Private vehicle, walking. History limitation: None. Additional information: Chief Complaint from Nursing Triage Note : Chief Complaint 07/27/2019 19:12 EST Chief Complaint patient has been having lower back pain and pain in bilateral legs. denies urinary symptoms . History of Present Illness The patient presents with back pain. The onset was 4 days ago. The course/duration of symptoms is constant and fluctuating in intensity. Type of injury: none. The location where the incident occurred was at home. Location: lumbar. Radiating pain: bilateral lower extremities. The character of symptoms is dull. The degree at onset was minimal. The degree at present is moderate. There are exacerbating factors including movement and bending over. The relieving factor is lying down. Risk factors consist of hypertension and diabetes mellitus. Prior episodes: frequent. Therapy today: see nurses notes. Associated symptoms: denies bowel dysfunction, denies bladder dysfunction, denies altered sensation, denies focal weakness, denies saddle numbness, denies abdominal pain, denies fever, denies chills, denies nausea, denies vomiting, denies dysuria and denies hematuria. Patient complaining of started having pain in her low back for last 4 days,, pain radiates to her both legs, pain is mild to moderate, dull, increased with movement, denies any fever or chills, no urinary symptoms, no numbness, no tingling, no weakness, patient has history of chronic back pain, has been to the emergency department for the similar symptoms also, has not seen her physician after her last ER visit, patient is on gabapentin,. Review of Systems Constitutional symptoms: No fever, no chills, no decreased activity. Skin symptoms: No rash, no pruritus, no silver, no petechiae, no lesion. Eye symptoms: No recent vision problems, no pain, no discharge. ENMT symptoms: No ear pain, no sore throat, no nasal congestion. Respiratory symptoms: No shortness of breath, no cough. Cardiovascular symptoms: No chest pain, no diaphoresis, no peripheral edema. Gastrointestinal symptoms: No abdominal pain, no vomiting, no diarrhea. Genitourinary symptoms: No dysuria, no hematuria. Musculoskeletal symptoms: Back pain, no Muscle pain, no Joint pain. Neurologic symptoms: No headache, no dizziness, no altered level of consciousness, no numbness, no tingling, no weakness. Psychiatric symptoms: No anxiety, no depression. Endocrine symptoms: No polyuria, Hematologic/Lymphatic symptoms: Bleeding tendency negative, Allergy/immunologic symptoms: No seasonal allergies, Additional review of systems information: No recent travel or surgery. No Abx recently. No change in meds recently No history of trauma or injury Denies IVDA . Health Status Allergies: Allergic Reactions (Selected) Severe SulfADIAZINE- Itching. Moderate Sulfonamides- Itching and rash.. Medications: (Selected) Prescriptions Prescribed Ranexa 500 mg oral tablet, extended release: 1 Tab, Oral, BID, 60 Tab, 0 Refill(s) albuterol CFC free 90 mcg/inh inhalation aerosol with adapter: 2 Puff, Inhalation, QID, 1 Each, 0 Refill(s) diclofenac 1% topical gel: 4 Gram, Topical, QID, PRN: for pain, 100 Gram, 0 Refill(s) predniSONE 10 mg oral tablet: See Instructions, 3 Tab mg Oral Daily for 1 days, 2 tabs for 1 days, then 1 tab for 2 days, taper over 6 days., 9 Tab, 0 Refill(s) tiZANidine 2 mg oral tablet: 1 Tab, Oral, Q8H, PRN: as needed for muscle spasm, 90 Tab, 0 Refill(s) Documented Medications Documented Basaglar KwikPen 100 units/mL subcutaneous solution: 13 Units, SubCutaneous, At Bedtime, 0 Refill(s) Incruse Ellipta 62.5 mcg/inh inhalation powder: 62.5 mcg, Inhalation, [id number] Nitrostat 0.4 mg sublingual tablet: 1 Tab, SubLINgual, Q5Min, PRN: as needed for chest pain, 100 Tab, 0 Refill(s) PRAVAstatin: 20 mg, Oral, Daily, 0 Refill(s) Xarelto 10 mg oral tablet: 1 Tab, Oral, Daily, 0 Refill(s) amLODIPine: 5 mg, Oral, Daily, 0 Refill(s) carvedilol 12.5 mg oral tablet: 1 Tab, Oral, BID, 0 Refill(s) docusate sodium 100 mg oral tablet: 1 Tab, Oral, BID, PRN: as needed for constipation fluticasone 50 mcg/inh nasal spray: 1 [place], Nasal, Daily, in each nostril, 16 Gram, 0 Refill(s) gabapentin: 600 mg, Oral, TID, 0 Refill(s) glyBURIDE: 5 mg, Oral, Daily, 0 Refill(s) loratadine 10 mg oral tablet: 1 Tab, Oral, Daily, 0 Refill(s) meloxicam 7.5 mg oral tablet: 1 Tab, Oral, Daily, 0 Refill(s) metformin: 1,000 mg, Oral, BID, 0 Refill(s) topiramate: 100 mg, Oral, At Bedtime, 0 Refill(s). Immunizations: Per nurse's notes. Past Medical/ Family/ Social History Medical history Reviewed as documented in chart. Cardiovascular: hypertension, myocardial infarction, congestive heart failure, hyperlipidemia. Respiratory: chronic obstructive pulmonary disease, sleep apnea. Endocrine: diabetes. Neurological: History of hydrocephalus. 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 hysterectomy. tubal. Cholecystectomy; (89681). Multiple brain surgeries. Heart surgery as child., Reviewed as documented in chart. Family history: No family history items have been selected or recorded., Reviewed as documented in chart. Social history: Social & Psychosocial Habits Alcohol 08/12/2014 Alcohol Use in Last Twelve Months No Home/Environment 08/12/2014 Lives with: Alone Home equipment: CPAP/BiPAP, Glucose monitoring Substance Abuse 08/12/2014 Recreational Drug Use History No Recreational Drug Use Last 12 Months No Tobacco 08/12/2014 Smoking Status Never smoker , Reviewed as documented in chart. Problem list: Active Problems (10) Apnea, sleep Chronic CHF COPD (chronic obstructive pulmonary disease) with emphysema Diabetes Genital herpes History of obstructive sleep apnea HTN (hypertension) Hydrocephalus Hyperlipemia Myocardial infarction , per nurse's notes. Physical Examination Vital Signs Vital Signs/Vital Measures 07/27/2019 19:12 EST Blood Pressure Location Arm, left upper Blood Pressure Source Non-Invasive BP Device Systolic Blood Pressure 163 mmHg HI Diastolic Blood Pressure 79 mmHg Temperature Source Oral Temperature Mode Fahrenheit Temperature, Fahrenheit 98.6 Deg F Clinical Temperature, C 37 Deg C Peripheral Pulse Rate 74 bpm Respiratory Rate 18 Breaths/Min Oxygen Saturation 98 % Oxygen Therapy Mode Room air . Measurements 07/27/2019 19:12 EST Height Source Stated Height Entry Format [place] Height/Length, URUGUAYAN (ft) 4 ft Height/Length URUGUAYAN 11 Inch CLINICALHEIGHT 149.86 cm [place] Body Weight 42.87 kg Weight Source, ED Standing scale Weight Entry Format [place] Weight Monegasque lb 194 lb Weight Monegasque oz 5 oz CLINICALWEIGHT 88.32 kg Body Surface Area (BSA) 1.82 m2 Body Mass Index 39.3 kg/m2 HI . Oxygen Saturation 07/27/2019 19:12 EST Oxygen Saturation 98 % . General: Alert, no acute distress. Skin: Warm, dry, pink, intact, no pallor, no rash, not cyanotic, not cool, not pale. Head: Normocephalic, atraumatic. Neck: Supple. Eye: Normal conjunctiva. Ears, nose, mouth and throat: Oral mucosa moist, no pharyngeal erythema or exudate, Hearing unchanged. Cardiovascular: Regular rate and rhythm, No murmur, Normal peripheral perfusion, No edema, no cardiac rub, no click. Respiratory: Lungs are clear to auscultation, respirations are non-labored, breath sounds are equal, Symmetrical chest wall expansion. Chest wall: No tenderness, No deformity. Back: Normal range of motion, Normal alignment, no step-offs, Back: no swelling, no redness, lateral muscle spasm in the lumbar area, no rash, no tenderness over spine, no CVA tenderness, ROM: normal, complain of pain with movement, SLR neg bilat.. Musculoskeletal: Normal ROM, normal strength, no tenderness, no swelling, no deformity. Gastrointestinal: Soft, Nontender, Non distended, No organomegaly. Neurological: Alert and oriented to person, place, time, and situation, No focal neurological deficit observed, CN II-XII intact, normal sensory observed, normal motor observed, normal speech observed, normal coordination observed, SENSORY: Left: Medial Leg/ Top of Foot/ Sole of Foot= Normal(2/2) Rightt: Medial Leg/ Top of Foot/ Sole of Foot= Normal (2/2) Perineal Area= Normal (2/2) MOTOR: Left: Dorsi-Flexion (L4-L5) = Normal (5/5) Right: Dorsi-Flexion (L4-L5) = Normal (5/5) Left: Plantar-Flexion (S1) = Normal (5/5) Right: Plantar-Flexion (S1) = Normal (5/5) DTR: Left Patellar Normal (2/5), Left Achiles Normal (2/5) DTR: Right Patellar Normal (2/5), Right Achiles Normal (2/5) SLR Negative bilaterally. Lymphatics: No lymphadenopathy. Psychiatric: Cooperative, appropriate mood & affect, normal judgment. Medical Decision Making Differential Diagnosis: Back pain, lumbar strain, degenerative joint disease, degenerative disc disease, sciatica, urinary tract infection, chronic back pain. Rationale: d/w pt d/d of sx., about doing CT, explained risks/ benefits in detail. Pt. understands the risk and benefits, pt. does NOT want to have CTdone, she had a CT scan of her abdomen and pelvis and L-spine recently in the ED. . Documents reviewed: Emergency department nurses' notes. Results review: Lab results : Lab Results 07/27/2019 20:10 EST Urine Type U CleanCatch Urine Color Yellow Urine Appearance Clear Urine Specific [place] 1.026 Urine pH Dipstick 5.5 LOW Urine Leukocyte Esterase Small Urine Nitrite Negative Urine Protein Dipstick Negative Urine Glucose Dipstick Negative Urine Ketones Dipstick Negative Urine Urobilinogen Dipstick 0.2 EU/dL Urine Bilirubin Dipstick Negative Urine Blood Dipstick Trace Ur RBC 2-5 /HPF Ur WBC 2-5 /HPF Ur Bacteria 1+ Ur Mucous 2+ Ur Squamous Epithelial Cells 2-5 /HPF UDS pH 6.2 NA UDS Amp Negative UDS Mona Negative UDS Benzo Negative UDS Byron Negative UDS Meth Negative UDS Opi Negative UDS Oxy Negative UDS PCP Negative UDS TCA Negative UDS THC Negative Buprenorphine Screen, Urine Negative Carisoprodol Screen, Urine Negative Fentanyl, Urine Negative Heroin Metab (6AM) by LC-MS/MS, Urine Negative Meperidine Screen, Urine Negative Propoxyphene, Urine Negative SpGravity, Urine 1.031 NA Tramadol Screen, Urine Negative UDS Creatinine, Toxicology 144.5 mg/dL NA . Reexamination/ Reevaluation Time: 07/27/2019 21:05:00 . Course: improving. Pain status: decreased. Assessment: exam unchanged. Notes: d/w pt labs results, d/d of sx, advised follow up with PCP/Ortho for further evaluation and treatment, return to ER if sx worsen.. Impression and Plan Diagnosis Complaint of Back pain - Reason For Visit, Emergency medicine, Medical Back pain - Discharge, Emergency medicine, Medical HTN (hypertension) - Discharge, Emergency medicine, Medical Plan Condition: Improved, Stable. Disposition: Discharged Admit/Transfer/Discharge: Discharge (Order): Start: 07/27/2019 21:12 EST, Discharge to: Home. Prescriptions: Prescription [facility]: Lidoderm 5% topical film (Prescribe): 1 Patch, TransDermal, Daily, for 10 Day(s), 10 Patch, 0 Refill(s). Patient was given the following educational materials: Acute Back Pain, Adult, Hypertension. Follow up with: ; BENJI MORRIS Within 2 to 3 days; Return to emergency department Within As needed Return if condition worsens; Follow up with primary care provider Within 2 to 3 days. Counseled: Patient, Regarding diagnosis, Regarding diagnostic results, Regarding treatment plan, Regarding prescription, Patient indicated understanding of instructions, Pre-hypertension/Hypertension: The patient has been informed that they may have pre-hypertension or Hypertension based on a blood pressure reading in the emergency department. I recommend that the patient call the primary care provider listed on their discharge instructions or a physician of their choice this week to arrange follow up for further evaluation of possible pre-hypertension or Hypertension.. Electronically signed by Alphonse [facility] Conversion [employer] Production Team Member Cerner at 12/10/2022 6:44 PM CDT documented in this encounter Plan of Treatment Not on file documented as of this encounter Visit Diagnoses Not on filedocumented in this encounter Care Teams Pediatric Neuropsychologist Relationship Specialty Start Date End Date Igor Meyers MD [address] [place] [id number] PCP - General Family Medicine 11/23/22 08/22/23 Provider, Not In System, CHRISTIAN SALAZAR PCP - General 08/23/23 08/27/24 [facility] Connection, [facility] [place], [place] [id number] PCP - General 08/28/24 11/06/24 [facility], [facility] [place], [place] [id number] PCP - General 11/07/24 02/22/25 [facility], Provider Not In The System, [place] [address] PCP - General 02/23/25 06/26/25 [facility], [facility] [place] [address] PCP - General 06/27/25 documented as of this encounter
--- OUTSIDE RECORDS SUMMARY | 2025-08-12 20:10 | XMS_ITS | Encounter Summary ---
Author Organization [employer] ([place], [place], [place], [place], [place]) Address [address] [place] [address] Care Team Providers Care Battery Service Technician Name Role Phone Igor Meyers MD Primary Care Provider [phone] Provider, Not In System MANAGER CREATIVE SERVICES Primary Care Provid er Unavailable [facility] Connection, [facility] Primary Care Provider [facility], [facility] Primary Care Provider [facility], Provider Not In The System Primary Care Provider Unavailable [facility], [facility] Primary Care Provider Encounter Details Date Type Department Care Team (Late st Contact Info) Description 05/05/2019 Transcribed Document [facility] [place] [address] [place] [address] ProviderRufino MD [address] [place] [address] Social History Tobacco Use Types Packs/Day Years Used Date Smoking Tobacco: Never Assessed Comments Unknown Sex and Gender Information Value Date Recorded Sex Assigned at Not on file Legal Sex Female 1:33 PM CDT Gender Identity Not on file Sexual Orientation Not on file documented as of this encounter Miscellaneous Notes * [employer]ner Conversion Note - Historical ProviderMD - 05/05/2019 9:25 AM CDT CR Chest 1 Vw Portable Ordered: 05/05/2019 Modified Reason for Exam: chest pain 05/05/2019 08:17 05/05/2019 09:25 (CHENG DYKES, [id number]) Reviewed by Provider, No further action required x1 documented in this encounter Plan of Treatment Not on file documented as of this encounter Visit Diagnoses Not on filedocumented in this encounter Care Teams Battery Service Technician Relationship Specialty Start Date End Date Igor Meyers MD [address] [place] [id number] PCP - General Family Medicine 11/23/22 08/22/23 Provider, Not In System, CHRISTIAN SALAZAR PCP - General 08/23/23 08/27/24 [facility], [facility]-a-[facility] [place], [place] [id number] PCP - General 08/28/24 11/06/24 [facility], [facility] [address] PCP - General 11/07/24 02/22/25 [facility], Provider Not In The System, [address] [place] [address] PCP - General 02/23/25 06/26/25 [facility], [facility] [place] [address] PCP - General 06/27/25 documented as of this encounter
--- OUTSIDE RECORDS SUMMARY | 2025-08-12 20:10 | XMS_ITS | Encounter Summary ---
Author Organization [employer] ([place], [place], [place], [place], [place]) Address [address] [place] [address] Care Team Providers Care Raking Machine Operator Name Role Phone Igor Meyers MD Primary Care Provider [phone] Provider, Not In System PERSONNEL PLACEMENT SPECIALIST Primary Care Provid er Unavailable [facility] Connection, [facility]Doc Primary Care Provider [facility], [facility] Primary Care Provider [facility], Provider Not In The System Primary Care Provider Unavailable [facility] Connection, Find[facility]A-Doc Primary Care Provider Encounter Details Date Type Department Care Team (Late st Contact Info) Description 05/05/2019 Transcribed Document [facility] [place] [address] ProviderRufino MD [address] [place] [address] Social History Tobacco Use Types Packs/Day Years Used Date Smoking Tobacco: Never Assessed Comments Unknown Sex and Gender Information Value Date Recorded Sex Assigned at Not on file Legal Sex Female 1:33 PM CDT Gender Identity Not on file Sexual Orientation Not on file documented as of this encounter Miscellaneous Notes * Cerner Conversion Note - Rufino ProviderMD - 05/05/2019 12:56 AM CDT Patient: ROBERTO RANDLE Age: 58 years Sex: Female : 1960 Associated Diagnoses: Atypical chest pain; Acute chest pain; Diabetes; Coronary artery disease; Right arm pain Author: CURT FLORENTINO MD-EMR Basic Information Time seen: Date & time 05/05/2019 00:56:00, Voice recognition / psychology lecturer technology was used for some documentation in this chart in an attempt to mitigate substantial inefficiencies created by this electronic health record technology. As a result, there may be some typos and/or non-sensical language introduced into the chart that either are overlooked in editing/review and/or that I am unable to correct because patient care needs require me to prioritize my attention to bedside patient care rather than electronic documentation.. History source: Patient. Arrival mode: Private vehicle. History limitation: None. Additional information: Chief Complaint from Nursing Triage Note : Chief Complaint 05/05/2019 0:47 EDT Chief Complaint pt to ed via ems c/o CP with dull right arm pain that started around 2330. pt taken 324 asa FIBER TECHNICIAN with 1 nitro en route. pt resps even and unlabored. . History of Present Illness 58-year-old female comes to the emergency department by EMS from [facility] for dull pain in her right arm and her chest. She says it began at rest sitting at home and about 11:30 tonight. She is given an aspirin and nitroglycerin en route. She says the Benadryl helped a bit. No diaphoresis. No shortness of air. No nausea or vomiting. Denies any acute injury or trauma. She's been here in the past. She's been evaluated for cardiac disease. She has coronary artery disease. Review of Systems Constitutional symptoms: Negative except as documented in HPI. Skin symptoms: Negative except as documented in HPI. Eye symptoms: Negative except as documented in HPI. ENMT symptoms: Negative except as documented in HPI. Respiratory symptoms: No shortness of breath, Cardiovascular symptoms: Chest pain. Gastrointestinal symptoms: No abdominal pain, Genitourinary symptoms: Negative except as documented in HPI. Musculoskeletal symptoms: Negative except as documented in HPI. Neurologic symptoms: Negative except as documented in HPI. Psychiatric symptoms: Negative except as documented in HPI. Additional review of systems information: All other systems reviewed and otherwise negative. Health Status Allergies: Allergic Reactions (Selected) Severe SulfADIAZINE- Itching. Moderate Sulfonamides- Itching and rash.. Medications: (Selected) Prescriptions Prescribed Ranexa 500 mg oral tablet, extended release: 1 Tab, Oral, BID, 60 Tab, 0 Refill(s) albuterol CFC free 90 mcg/inh inhalation aerosol with adapter: 2 Puff, Inhalation, QID, 1 Each, 0 Refill(s) predniSONE 10 mg oral tablet: See Instructions, 3 Tab mg Oral Daily for 1 days, 2 tabs for 1 days, then 1 tab for 2 days, taper over 6 days., 9 Tab, 0 Refill(s) Documented Medications Documented Basaglar KwikPen 100 units/mL subcutaneous solution: 13 Units, SubCutaneous, At Bedtime, 0 Refill(s) Incruse Ellipta 62.5 mcg/inh inhalation powder: 62.5 mcg, Inhalation, [id number] Nitrostat 0.4 mg sublingual tablet: 1 Tab, [...] constipation fluticasone 50 mcg/inh nasal spray: 1 Tresckow, Nasal, Daily, in each nostril, 16 Gram, 0 Refill(s) gabapentin: 600 mg, Oral, TID, 0 Refill(s) glyBURIDE: 5 mg, Oral, Daily, 0 Refill(s) loratadine 10 mg oral tablet: 1 Tab, Oral, Daily, 0 Refill(s) meloxicam 7.5 mg oral tablet: 1 Tab, Oral, Daily, 0 Refill(s) metformin: 1,000 mg, Oral, BID, 0 Refill(s) topiramate: 100 mg, Oral, At Bedtime, 0 Refill(s). Past Medical/ Family/ Social History Medical history See problem list below which I have reviewed.. 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 tubal. Cholecystectomy; (CPT4 [id number]). Multiple brain surgeries. Heart surgery as child., Reviewed as documented in chart. Family history: Not significant. Social history: Social & Psychosocial Habits Alcohol [...] Physical Examination Vital Signs Vital Signs/Vital Measures 05/05/2019 0:47 EDT Systolic Blood Pressure 146 mmHg HI Diastolic Blood Pressure 79 mmHg Temperature Source Oral Temperature Mode Fahrenheit Temperature, Fahrenheit 99.0 Deg F Clinical Temperature, C 37.2 Deg C Peripheral Pulse Rate 72 bpm Respiratory Rate 18 Breaths/Min Oxygen Saturation 96 % Oxygen Therapy Mode Room air . Measurements 05/05/2019 0:47 EDT Height Source Stated Height Entry Format [place] Height/Length, GREEK (ft) 4 ft Height/Length GREEK 11 Inch CLINICALHEIGHT 149.86 cm Yoder Body Weight 42.87 kg Weight Source, ED Critical estimated dosing weight Weight Entry Format [place] Weight Citizen Of [place] lb 190 lb CLINICALWEIGHT 86.36 kg Body Surface Area (BSA) 1.81 m2 Body Mass Index 38.5 kg/m2 HI . General: Alert, no acute distress. Skin: Warm, dry. Head: Normocephalic, atraumatic. Neck: Supple, trachea midline. Eye: Pupils are equal, round and reactive to light, extraocular movements are intact. Cardiovascular: Regular rate and rhythm, Normal peripheral perfusion. Respiratory: Lungs are clear to auscultation, respirations are non-labored, breath sounds are equal. Gastrointestinal: Soft, Nontender, Non distended. Musculoskeletal: Normal ROM. Neurological: Alert and oriented to person, place, time, and situation, No focal neurological deficit observed. Psychiatric: Cooperative, appropriate mood & affect. Medical Decision Making Differential Diagnosis: Angina, atypical chest pain. Documents reviewed: Emergency department nurses' notes, emergency department records, prior records. Electrocardiogram: Time 05/05/2019 00:44:00, rate 78, normal sinus rhythm, EP Interp, No acute ischemia or infarction. No STEMI. QTc 419 ms. Electrocardiogram: Time 05/05/2019 03:45:00, rate 75, normal sinus rhythm, EP Interp, No acute ischemia or infarction. No STEMI.. Results review: Lab results : Lab Results 05/05/2019 3:50 EDT Troponin I Ultra <0.015 ng/mL 05/05/2019 1:09 EDT Sodium Level 140 mmol/L Potassium Level 4.2 mmol/L Chloride Level 105 mmol/L Carbon Dioxide Level 26 mmol/L Anion Gap 13 Glucose Level 280 mg/dL HI Blood Urea Nitrogen 13 mg/dL Creatinine Level 0.69 mg/dL eGFR >60 mL/min/1.73m2 eGFR NonAfrican >60 mL/min/1.73m2 Bun/Creatinine 18.8 Calcium Level 9.2 mg/dL Protein Total 6.7 Gram/dL Albumin Level 3.6 Gram/dL Globulin 3.1 Gram/dL A/G Ratio 1.2 Bilirubin Total 0.4 mg/dL Alk Phos 89 Units/Liter AST 33 Units/Liter ALT 29 Units/Liter Troponin I Ultra <0.015 ng/mL WBC 11.8 K/uL HI RBC 4.84 Million/uL Hgb 14.0 Gram/dL Hct 42.1 % MCV 87.0 fL MCH 28.9 pg MCHC 33.3 Gram/dL Platelet Count 289 K/uL MPV 11.1 fL RDW 13.5 % Slide Review No . Chest X-Ray: Time reported 05/05/2019 03:37:00, no acute disease process, interpretation by Emergency Physician. Reexamination/ Reevaluation 0217 - She appears to have had 12 CT angiograms of her chest in about the past 3.5 years. Not a single one of these CTs of the chest has ever shown pulmonary embolism, dissection, pneumonia, pneumothorax. She also had a CT of the chest without contrast. I would hate to be the first person who missed pathology identified on CT scan of her chest, but it certainly does not appear at this time that another CT angiogram of her chest is indicated. And, she is on Xarelto so already anticoagulated. Her initial laboratory studies here are essentially unremarkable and her first troponin is negative. I will watch her for 3 hours and repeat another EKG and troponin. 0430 - Her second troponin is NEGATIVE. She has had continued CP her entire ED stay but second EKG and troponin remain NEG. This appears to fit her prior visit pattern where her ED evals show no apparent acute explanation for her CP and she has previously been d/c'ed to outpt f/u. 0438 - Her CP and right arm pain are improved, though not gone, after the morphine. She has no way to get back home. I suggested she take a nap and we can work with her in the a.m. as she tries to find a ride home. 0643 - She has rested uneventfully. I will be entering d/c order now and day shift will have to work with her to get home. 0650 - She woke up and c/o again of RUE pain. I re-examined her. Pain is only in her RUE. Tele tracing is unchanged on monitor. Seems much more like a peripheral nerve pain (i.e. carpal tunnel) but I am unable to specifically locate a source on exam. I really can't find any particular additionally evaluation indicated in ER at this time. I will Rx some pain medication for her and I have advised she should see her PCP and possibly a neurologist to evaluate for nerve entrapment syndrome of some sort in her RUE. Impression and Plan Diagnosis Atypical chest pain - Discharge, Emergency medicine, Medical Acute chest pain - Discharge, Emergency medicine, Medical Diabetes - Discharge, Emergency medicine, Medical Coronary artery disease - Discharge, Emergency medicine, Medical Right arm pain - Discharge, Emergency medicine, Medical Plan Condition: Stable. Disposition: Medically cleared, Discharged Admit/Transfer/Discharge: Discharge (Order): Start: 05/05/2019 6:55 EDT, Discharge to: Home. Prescriptions: Prescription [facility]: [place] 5 mg-325 mg oral tablet (Prescribe): 1 Tab, Oral, Q6H, for 3 Day(s), may substitute hydrocodone/acetaminophen generic; VALID FOR 5 CALENDAR DAYS, 12 Tab, 0 Refill(s), In my professional medical judgment, Opioids and/or Other Controlled Substances (i.e. OOCS) are clinically indicated in the treatment of this patient based on the medical documentation contained in this chart. Either I attempted to query JADEN but a failure of some sort (JADEN down, Manual Process, technology failure at hospital, etc..) prevented me from obtaining a report or ED volume or specific patient care demands precluded obtaining a JADEN. In my professional medical judgment, OOCS were appropriate and necessary even in the absence of a JADEN report. I counseled the patient as clinically appropriate about the risks and benefits of OOCS treatment.. Patient was given the following educational materials: Nonspecific Chest Pain. Follow up with: JED ROSALES Within 2 to 3 days; ABRAHAM (REF) XI Within 2 to 3 days Please see your primary care provider for further evaluation for possible nerve entrapment in your right arm. . Counseled: Patient, Regarding diagnosis, Regarding diagnostic results, Regarding treatment plan, Regarding prescription, Patient indicated understanding of instructions. Electronically signed by [facility], [facility] Conversion Wind Farm Operations Manager Cerner at 12/10/2022 6:27 PM CDT documented in this encounter Plan of Treatment Not on file documented as of this encounter Visit Diagnoses Not on filedocumented in this encounter Care Teams Raking Machine Operator Relationship Specialty Start Date End Date Igor Meyers MD [address] [place] [address] PCP - General Family Medicine 11/23/22 08/22/23 Provider, Not In System, CHRISTIAN SALAZAR PCP - General 08/23/23 08/27/24 [facility] Connection, [facility]Doc [facility] [place], [place] [id number] PCP - General 08/28/24 11/06/24 [facility] Connection, [facility] [place] [address] PCP - General 11/07/24 02/22/25 [facility], Provider Not In The System, [place] [address] PCP - General 02/23/25 06/26/25 [facility] Connection, [facility] [place], [place] [id number] PCP - General 06/27/25 documented as of this encounter
--- OUTSIDE RECORDS SUMMARY | 2025-08-12 20:10 | XMS_ITS | Encounter Summary ---
Author Organization [employer] ([place], [place], [place], [place], [place]) Address [address] [place] [address] Care Team Providers Care Log Pond Worker Name Role Phone Igor Meyers MD Primary Care Provider [phone] Provider, Not In System BUSINESS INSTRUCTOR Primary Care Provid er Unavailable [facility] Connection, [facility]-Doc Primary Care Provider [facility], [facility] Primary Care Provider [facility], Provider Not In The System Primary Care Provider Unavailable [facility] Connection, [facility]A-Doc Primary Care Provider Encounter Details Date Type Department Care Team (Late st Contact Info) Description 06/20/2020 Transcribed Document [facility] [place] [facility] [place] [address] ProviderRufino MD [address] [place] [address] Social History Tobacco Use Types Packs/Day Years Used Date Smoking Tobacco: Never Assessed Comments Unknown Sex and Gender Information Value Date Recorded Sex Assigned at Not on file Legal Sex Female 1:33 PM CDT Gender Identity Not on file Sexual Orientation Not on file documented as of this encounter Miscellaneous Notes * Cerner Conversion Note - Rufino ProviderMD - 06/20/2020 1:41 AM CDT ED Triage Entered On: 06/20/2020 1:48 EDT Performed On: 06/20/2020 1:42 EDT by Edith Jones, grove worker Triage Across the Room Chief Complaint : chest pain Triage Date/Time : 06/20/2020 1:42 EDT Trauma Room Arrival Date and Time : 06/20/2020 1:37 EDT Edith Jones Rn - 06/20/2020 1:42 EDT DCP GENERIC CODE Tracking Acuity : 2 - Emergent Tracking Group : [facility] Edith Jones Rn - 06/20/2020 1:42 EDT Mode of Arrival : Stretcher Transported to ED by : Ambulance/ALS EMS Service : [facility] To Room Via : Stretcher Accompanied By : experimental technician EGG TESTER Medications and Interventions : Document ED Vital Signs : Document Height & Weight : Document ED Allergies : Document ED Infection Control : No ED Reason for Visit : Document Tetanus Immunization : Greater than 5 years Edith Jones Rn - 06/20/2020 1:42 EDT Infectious Disease History Has the patient ever been tested for COVID-19? : Yes, Patient stated results Negative Date of COVID-19 test known? : No Does patient have symptoms of COVID-19? : No COVID19 Screening : No Experiencing Infectious Disease Symptoms : No symptoms Physical contact outside [place] in the last 30 days : No Infectious Disease History : Chicken pox/Shingles, Herpes, Measles, Mumps Tuberculosis Symptoms : None Edith Jonse Rn - 06/20/2020 1:42 EDT Vital Signs ED Temperature Source : Oral Temperature Mode : Fahrenheit Temperature, Fahrenheit : 98.1 Deg F ED Pain : Yes Clinical Temperature, C : 36.7 Deg C Oxygen Therapy Mode : Room air Peripheral Pulse Rate : 95 bpm Respiratory Rate : 20 Breaths/Min Blood Pressure Location : Arm, right upper Systolic Blood Pressure : 149 mmHg (HI) Diastolic Blood Pressure : 73 mmHg Oxygen Saturation : 95 % Edith Jones Rn - 06/20/2020 1:42 EDT Allergy (As Of: 06/20/2020 01:48:39 EDT) Allergies (Active) ibuprofen Estimated Onset Date: Unspecified ; Created By: Divina Lucas RN; Reaction Status: Active ; Category: Drug ; Substance: ibuprofen ; Type: Allergy ; Updated By: Divina Lucas RN; Reviewed Date: 05/08/2020 18:28 EDT sulfADIAZINE Estimated Onset Date: Unspecified ; Reactions: C/O: a swelling, itching ; Created By: Barb Barrientos RN; Reaction Status: Active ; Category: Drug ; Substance: sulfADIAZINE ; Type: Allergy ; Severity: Severe ; Updated By: Barb Barrientos RN; Reviewed Date: 05/08/2020 18:28 EDT sulfonamides Estimated Onset Date: Unspecified ; Reactions: Itching, Rash ; Created By: Diana Michel, Pharmacist-Resident; Reaction Status: Active ; Category: Drug ; Substance: sulfonamides ; Type: Allergy ; Severity: Moderate ; Updated By: Diana Michel, Pharmacist-Resident; Source: Patient ; Reviewed Date: 05/08/2020 18:28 EDT Diagnosis Control ED (As Of: 06/20/2020 01:48:39 EDT) Problems(Active) Apnea, sleep (SNOMED CT :462235068 ) Name of Problem: Apnea, sleep ; Recorder: Sheryl Burnett RN; Confirmation: Confirmed ; Classification: Patient Stated ; Code: [id number] ; Contributor System: Ipselex ; Last Updated: 08/12/2014 20:25 EST ; Life Cycle Date: 08/12/2014 ; Life Cycle Status: Active ; Vocabulary: SNOMED CT Chest pain (SNOMED CT :81087857 ) Name of Problem: Chest pain ; Recorder: WILBER BETTENCOURT PA; Confirmation: Confirmed ; Classification: Medical ; Code: [id number] ; Contributor System: PowerChart ; Last Updated: 04/13/2020 16:52 EDT ; Life Cycle Date: 04/13/2020 ; Life Cycle Status: Active ; Responsible Provider: WILBER BETTENCOURT PA; Vocabulary: SNOMED CT Chronic CHF (SNOMED CT :604459996 ) Name of Problem: Chronic CHF ; Recorder: Sheryl Burnett RN; Confirmation: Confirmed ; Classification: Patient Stated ; Code: [id number] ; Contributor System: PowerChart ; Last Updated: 08/12/2014 20:25 EST ; Life Cycle Date: 08/12/2014 ; Life Cycle Status: Active ; Vocabulary: SNOMED CT COPD (chronic obstructive pulmonary disease) with emphysema (SNOMED CT :358179322 ) Name of Problem: COPD (chronic obstructive pulmonary disease) with emphysema ; Recorder: Sheryl Burnett RN; Confirmation: Confirmed ; Classification: Patient Stated ; Code: [id number] ; Contributor System: [email or web address] ; Last Updated: 08/12/2014 20:25 EST ; Life Cycle Date: 08/12/2014 ; Life Cycle Status: Active ; Vocabulary: SNOMED CT Diabetes (SNOMED CT :539298085 ) Name of Problem: Diabetes ; Recorder: Sheryl Burnett RN; Confirmation: Confirmed ; Classification: Patient Stated ; Code: [id number] ; Contributor System: [email or web address] ; Last Updated: 08/12/2014 20:24 EST ; Life Cycle Date: 08/12/2014 ; Life Cycle Status: Active ; Vocabulary: SNOMED CT Genital herpes (SNOMED CT :46781530 ) Name of Problem: Genital herpes ; Recorder: Sheryl Burnett RN; Confirmation: Confirmed ; Classification: Patient Stated ; Code: 14909395 ; Contributor System: PowerChart ; Last Updated: 08/12/2014 20:25 EST ; Life Cycle Date: 08/12/2014 ; Life Cycle Status: Active ; Vocabulary: SNOMED CT History of obstructive sleep apnea (IMO :46743381 ) Name of Problem: History of obstructive sleep apnea ; Recorder: SYSTEM, SYSTEM; Confirmation: Confirmed ; Classification: Medical ; Code: [id number] ; Last Updated: 03/07/2018 10:59 EDT ; Life Cycle Date: 03/07/2018 ; Life Cycle Status: Active ; Vocabulary: IMO HTN (hypertension) (SNOMED CT :8047737113 ) Name of Problem: HTN (hypertension) ; Recorder: Sheryl Burnett RN; Confirmation: Confirmed ; Classification: Patient Stated ; Code: 3831234210 ; Contributor System: [email or web address] ; Last Updated: 08/12/2014 20:24 EST ; Life Cycle Date: 08/12/2014 ; Life Cycle Status: Active ; Vocabulary: SNOMED CT Hydrocephalus (SNOMED CT :192642543 ) Name of Problem: Hydrocephalus ; Recorder: Sheryl Burnett RN; Confirmation: Confirmed ; Classification: Patient Stated ; Code: 189877525 ; Contributor System: PowerChart ; Last Updated: 08/12/2014 20:24 EST ; Life Cycle Date: 08/12/2014 ; Life Cycle Status: Active ; Vocabulary: SNOMED CT Hyperlipemia (SNOMED CT :71448717 ) Name of Problem: Hyperlipemia ; Recorder: Sheryl Burnett RN; Confirmation: Confirmed ; Classification: Patient Stated ; Code: 13733084 ; Contributor System: PowerChart ; Last Updated: 08/12/2014 20:24 EST ; Life Cycle Date: 08/12/2014 ; Life Cycle Status: Active ; Vocabulary: SNOMED CT Myocardial infarction (SNOMED CT :87310873 ) Name of Problem: Myocardial infarction ; Recorder: Sheryl Burnett RN; Confirmation: Confirmed ; Classification: Patient Stated ; Code: 20188491 ; Contributor System: Ipselex ; Last Updated: 08/12/2014 20:25 EST ; Life Cycle Date: 08/12/2014 ; Life Cycle Status: Active ; Vocabulary: SNOMED CT Diagnoses(Active) Chest pain Date: 06/20/2020 ; Diagnosis Type: Reason For Visit ; Confirmation: Complaint of ; Clinical Dx: Chest pain ; Classification: Medical ; Clinical Service: Emergency medicine ; Code: PNED ; Probability: 0 ; Diagnosis Code: [id number] ED Height and Weight Height Source : Stated Height Entry Format : [place] Height, Feet : 4 ft(Converted to: 122 cm, 48 Inch) Height, Inches : 11 Inch(Converted to: 0 ft 11 Inch, 27.94 cm) Clinical Height : 149.86 cm Weight Source, ED : Stated [place] Body Weight (IBW) : 42.87 kg Edith Jones Rn - 06/20/2020 1:42 EDT Estimated Weight Type of Weight Measurement Est : [place] Weight, est lb : 200 lb(Converted to: 91 kg) Estimated Clinical Dosing Weight : 90.91 kg Edith Jones Rn - 06/20/2020 1:42 EDT Pain Assessment Pain Assessment : Initial assessment Pain Scale Used : 0-10 Scale Location : Chest, left Onset : Acute Pain Radiation : Yes Pain Radiation Location : Arm, left Edith Jones Rn - 06/20/2020 1:42 EDT Pain Scale Intensity : 8 Edith Jones Rn - 06/20/2020 1:42 EDT Image 4 - Images currently included in the form version of this document have not been included in the text rendition version of the form. EGG TESTER Medications and Interventions EGG TESTER Medication Type 1 : Aspirin EGG TESTER Medication 1 Comment : 325mg nitro x3 Edith Jones Rn - 06/20/2020 1:42 EDT documented in this encounter Plan of Treatment Not on file documented as of this encounter Visit Diagnoses Not on filedocumented in this encounter Care Teams Log Pond Worker Relationship Specialty Start Date End Date Igor Meyers MD [address] [place] [address] PCP - General Family Medicine 11/23/22 08/22/23 Provider, Not In System, CHRISTIAN SALAZAR PCP - General 08/23/23 08/27/24 [facility], Find-A-Doc [facility] Find-a-Doc [place], [place] [id number] PCP - General 08/28/24 11/06/24 [facility], Find[facility]Doc [facility] [place] [address] PCP - General 11/07/24 02/22/25 [facility], Provider Not In The System, [address] [place] [address] PCP - General 02/23/25 06/26/25 [facility], [facility]Doc [facility] Find-a-Doc [place], [place] [id number] PCP - General 06/27/25 documented as of this encounter
--- OUTSIDE RECORDS SUMMARY | 2025-08-12 20:10 | XMS_ITS | Encounter Summary ---
Author Organization [employer] ([place], [place], [place], [place], [place]) Address [address] [place] [address] Care Team Providers Care Repeat Chief Name Role Phone Igor Meyers MD Primary Care Provider [phone] Provider, Not In System DATA ENTRY MACHINE OPERATOR Primary Care Provid er Unavailable [facility] Connection, Find-A-Doc Primary Care Provider [facility], [facility]A-Doc Primary Care Provider [facility], Provider Not In The System Primary Care Provider Unavailable [facility] Connection, Find-A-Doc Primary Care Provider Encounter Details Date Type Department Care Team (Late st Contact Info) Description 05/05/[address] [facility] [place] Family Medicine [address] [place] [address] ProviderRufino MD [address] [place] [address] Social History Tobacco Use Types Packs/Day Years Used Date Smoking Tobacco: Never Assessed Comments Unknown Sex and Gender Information Value Date Recorded Sex Assigned at Not on file Legal Sex Female 1:33 PM CDT Gender Identity Not on file Sexual Orientation Not on file documented as of this encounter Miscellaneous Notes * Cerner Conversion Note - Rufino ProviderMD - 05/05/2019 12:44 AM CDT ED Triage Entered On: 05/05/2019 0:52 EDT Performed On: 05/05/2019 0:47 EDT by Pastora Fajardo Rn ED Triage Across the Room Triage Date/Time : 05/05/2019 0:47 EDT Chief Complaint : pt to ed via ems c/o CP with dull right arm pain that started around 2330. pt taken 324 asa TELEVISION ANNOUNCER with 1 nitro en route. pt resps even and unlabored. Pastora Fajardo Rn - 05/05/2019 0:47 EDT DCP GENERIC CODE Tracking Acuity : 2 - Emergent Tracking Group : [facility] Pastora Fajardo Rn - 05/05/2019 0:47 EDT Mode of Arrival : Stretcher Transported to ED by : Ambulance/ALS EMS Service : [facility] To Room Via : Ambulate Accompanied By : Unaccompanied ED Vital Signs : Document Height & Weight : Document ED Allergies : Document ED Reason for Visit : Document Tetanus Immunization : Less than 5 years Pastora Fajardo Rn - 05/05/2019 0:47 EDT Infectious Disease History Infectious Disease History : Chicken pox/Shingles, Herpes, Measles, Mumps Fever/Chills Last 48 Hours : No Travel To Regions with Travel Advisories : No Travel Outside [place] Within Last 30 Days : No Contact With Traveler to Advisory Region : No Tuberculosis Symptoms : None Pastora Fajardo Rn - 05/05/2019 0:47 EDT Vital Signs ED Temperature Source : Oral Temperature Mode : Fahrenheit Temperature, Fahrenheit : 99.0 Deg F Clinical Temperature, C : 37.2 Deg C Oxygen Therapy Mode : Room air Peripheral Pulse Rate : 72 bpm Respiratory Rate : 18 Breaths/Min Systolic Blood Pressure : 146 mmHg (HI) Diastolic Blood Pressure : 79 mmHg Oxygen Saturation : 96 % Pastora Fajardo Rn - 05/05/2019 0:47 EDT Allergy (As Of: 05/05/2019 00:52:03 EDT) Allergies (Active) sulfADIAZINE Estimated Onset Date: Unspecified ; Reactions: itching ; Created By: Ella Phelan Rn; Reaction Status: Active ; Category: Drug ; Substance: sulfADIAZINE ; Type: Allergy ; Severity: Severe ; Updated By: Ella Phelan Rn; Reviewed Date: 05/05/2019 0:51 EDT sulfonamides Estimated Onset Date: Unspecified ; Reactions: Itching, Rash ; Created By: Diana Michel, Pharmacist-Resident; Reaction Status: Active ; Category: Drug ; Substance: sulfonamides ; Type: Allergy ; Severity: Moderate ; Updated By: Diana Michel, Pharmacist-Resident; Source: Patient ; Reviewed Date: 05/05/2019 0:51 EDT Diagnosis Control ED (As Of: 05/05/2019 00:52:03 EDT) Problems(Active) Apnea, sleep (SNOMED CT :498084032 ) Name of Problem: Apnea, sleep ; Recorder: Sheryl Burnett RN; Confirmation: Confirmed ; Classification: Patient Stated ; Code: [id number] ; Contributor System: EnconcertChart ; Last Updated: 08/12/2014 20:25 EST ; Life Cycle Date: 08/12/2014 ; Life Cycle Status: Active ; Vocabulary: SNOMED CT Chronic CHF (SNOMED CT :588418716 ) Name of Problem: Chronic CHF ; Recorder: Sheryl Burnett RN; Confirmation: Confirmed ; Classification: Patient Stated ; Code: 068561827 ; Contributor System: PowerChart ; Last Updated: 08/12/2014 20:25 EST ; Life Cycle Date: 08/12/2014 ; Life Cycle Status: Active ; Vocabulary: SNOMED CT COPD (chronic obstructive pulmonary disease) with emphysema (SNOMED CT :758714444 ) Name of Problem: COPD (chronic obstructive pulmonary disease) with emphysema ; Recorder: Sheryl Burnett RN; Confirmation: Confirmed ; Classification: Patient Stated ; Code: [id number] ; Contributor System: PowerChart ; Last Updated: 08/12/2014 20:25 EST ; Life Cycle Date: 08/12/2014 ; Life Cycle Status: Active ; Vocabulary: SNOMED CT Diabetes (SNOMED CT :633592668 ) Name of Problem: Diabetes ; Recorder: Sheryl Burnett RN; Confirmation: Confirmed ; Classification: Patient Stated ; Code: 800348597 ; Contributor System: PowerChart ; Last Updated: 08/12/2014 20:24 EST ; Life Cycle Date: 08/12/2014 ; Life Cycle Status: Active ; Vocabulary: SNOMED CT Genital herpes (SNOMED CT :02553952 ) Name of Problem: Genital herpes ; Recorder: Sheryl Burnett RN; Confirmation: Confirmed ; Classification: Patient Stated ; Code: 53210385 ; Contributor System: PowerChart ; Last Updated: 08/12/2014 20:25 EST ; Life Cycle Date: 08/12/2014 ; Life Cycle Status: Active ; Vocabulary: SNOMED CT History of obstructive sleep apnea (IMO :93899531 ) Name of Problem: History of obstructive sleep apnea ; Recorder: SYSTEM, SYSTEM; Confirmation: Confirmed ; Classification: Medical ; Code: 12750924 ; Last Updated: 03/07/2018 10:59 EDT ; Life Cycle Date: 03/07/2018 ; Life Cycle Status: Active ; Vocabulary: IMO HTN (hypertension) (SNOMED CT :9344270290 ) Name of Problem: HTN (hypertension) ; Recorder: Sheryl Burnett RN; Confirmation: Confirmed ; Classification: Patient Stated ; Code: 4825818793 ; Contributor System: EnconcertChart ; Last Updated: 08/12/2014 20:24 EST ; Life Cycle Date: 08/12/2014 ; Life Cycle Status: Active ; Vocabulary: SNOMED CT Hydrocephalus (SNOMED CT :043824278 ) Name of Problem: Hydrocephalus ; Recorder: Sheryl Burnett RN; Confirmation: Confirmed ; Classification: Patient Stated ; Code: 804159969 ; Contributor System: EnconcertChart ; Last Updated: 08/12/2014 20:24 EST ; Life Cycle Date: 08/12/2014 ; Life Cycle Status: Active ; Vocabulary: SNOMED CT Hyperlipemia (SNOMED CT :28999080 ) Name of Problem: Hyperlipemia ; Recorder: Sheryl Burnett RN; Confirmation: Confirmed ; Classification: Patient Stated ; Code: 05285670 ; Contributor System: EnconcertChart ; Last Updated: 08/12/2014 20:24 EST ; Life Cycle Date: 08/12/2014 ; Life Cycle Status: Active ; Vocabulary: SNOMED CT Myocardial infarction (SNOMED CT :75753981 ) Name of Problem: Myocardial infarction ; Recorder: Sheryl Burnett RN; Confirmation: Confirmed ; Classification: Patient Stated ; Code: 23687527 ; Contributor System: PowerChart ; Last Updated: 08/12/2014 20:25 EST ; Life Cycle Date: 08/12/2014 ; Life Cycle Status: Active ; Vocabulary: SNOMED CT Diagnoses(Active) Chest pain Date: 05/05/2019 ; Diagnosis Type: Reason For Visit ; Confirmation: Complaint of ; Clinical Dx: Chest pain ; Classification: Medical ; Clinical Service: Non-Specified ; Code: PNED ; Probability: 0 ; Diagnosis Code: [id number] ED Height and Weight Height Source : Stated Height Entry Format : [place] Height, Feet : 4 ft(Converted to: 122 cm, 48 Inch) Height, Inches : 11 Inch(Converted to: 0 ft 11 Inch, 27.94 cm) Clinical Height : 149.86 cm Weight Source, ED : Critical estimated dosing weight Weight Entry Format : [place] Weight, Pounds : 190 lb Clinical Dosing Weight : 86.36 kg Body Surface Area (BSA) : 1.81 m2 Body Mass Index : 38.5 kg/m2 (HI) [place] Body Weight (IBW) : 42.87 kg Pastora Fajardo Rn - 05/05/2019 0:47 EDT ED Influenza/Pneumoccocal Vaccine Influenza Immunization, Current Season : Outside of influenza season Previous Vaccines from Immunization Schedule : No qualifying data available. Pastora Fajardo Rn - 05/05/2019 0:47 EDT Electronically signed by Alphonse [facility] Conversion Excavator Backhoe Operator Cerner at 12/10/2022 6:36 PM CDT documented in this encounter Plan of Treatment Not on file documented as of this encounter Visit Diagnoses Not on filedocumented in this encounter Care Teams Repeat Chief Relationship Specialty Start Date End Date Igor Meyers MD [address] [place] [address] PCP - General Family Medicine 11/23/22 08/22/23 Provider, Not In System, CHRISTIAN SALAZAR PCP - General 08/23/23 08/27/24 [facility] Connection, Find-A-Doc [facility] Find-a-Doc [place], [place] [id number] PCP - General 08/28/24 11/06/24 [facility], Find-A-Doc [facility] Find-a-Doc [place], [place] [id number] PCP - General 11/07/24 02/22/25 [facility], Provider Not In The System, [place] [address] PCP - General 02/23/25 06/26/25 [facility] Connection, Find-A-Doc [facility] Find-a-Doc [place], [place] [address] PCP - General 06/27/25 documented as of this encounter
--- OUTSIDE RECORDS SUMMARY | 2025-08-12 20:10 | XMS_ITS | Encounter Summary ---
Author Organization [employer] ([place], [place], [place], [place], [place]) Address [address] [place] [address] Care Team Providers Care Social Science Manager Name Role Phone Igor Meyers MD Primary Care Provider [phone] Provider, Not In System BLOCK BREAKER OPERATOR Primary Care Provid er Unavailable [facility] Connection, Find-A-Doc Primary Care Provider [facility] Connection, Find-A-Doc Primary Care Provider [facility], Provider Not In The System Primary Care Provider Unavailable [facility] Connection, Find-A-Doc Primary Care Provider Encounter Details Date Type Department Care Team (Late st Contact Info) Description 06/20/2019 Transcribed Document [facility] [place] [address] [place] [address] ProviderRufino MD [address] [place] [address] Social History Tobacco Use Types Packs/Day Years Used Date Smoking Tobacco: Never Assessed Comments Unknown Sex and Gender Information Value Date Recorded Sex Assigned at Not on file Legal Sex Female 1:33 PM CDT Gender Identity Not on file Sexual Orientation Not on file documented as of this encounter Miscellaneous Notes * Cerner Conversion Note - Ruifno ProviderMD - 06/20/2019 5:42 PM CDT Electronically signed by Alphonse [facility] Conversion Director Of National Sales Cervanessa at 12/10/2022 6:39 PM CDT documented in this encounter Plan of Treatment Not on file documented as of this encounter Visit Diagnoses Not on filedocumented in this encounter Care Teams Social Science Manager Relationship Specialty Start Date End Date Igor Meyers MD [address] [place] [address] VINNY Jasso [id number] PCP - General Family Medicine 11/23/22 08/22/23 Provider, Not In System, CHRISTIAN SALAZAR PCP - General 08/23/23 08/27/24 [facility] Connection, Find-A-Doc [facility] Find-a-Doc [place], [place] [id number] PCP - General 08/28/24 11/06/24 [facility] Connection, Find[facility]A-Doc [facility] [place] [address] PCP - General 11/07/24 02/22/25 [facility], Provider Not In The System, [place] [address] PCP - General 02/23/25 06/26/25 [facility] Connection, Find-A-Doc [facility] Find-a-Doc [place], [place] [id number] PCP - General 06/27/25 documented as of this encounter
--- OUTSIDE RECORDS SUMMARY | 2025-08-12 20:10 | XMS_ITS | Encounter Summary ---
Author Organization [employer] ([place], [place], [place], [place], [place]) Address [address] [place] [address] Care Team Providers Care Pantry Cook Name Role Phone Igor Meyers MD Primary Care Provider [phone] Provider, Not In System EFFICIENCY EXPERT Primary Care Provid er Unavailable [facility] Connection, Find-A-Doc Primary Care Provider [facility], [facility]A-Doc Primary Care Provider [facility], Provider Not In The System Primary Care Provider Unavailable [facility] Connection, Find-A-Doc Primary Care Provider Encounter Details Date Type Department Care Team (Late st Contact Info) Description 06/20/2020 Transcribed Document [facility] [place] [address] ProviderRufino MD [address] [place] [address] Social History Tobacco Use Types [...] ProviderMD - 06/20/2020 1:41 AM CDT ED Assessment Entered On: 06/20/2020 1:54 EDT Performed On: 06/20/2020 1:50 EDT by Edith Jones conference producer Quick Look Assessment Level of Consciousness : Alert, Awake Affect/Behavior : Appropriate, Calm, Cooperative Orientation : Oriented x 4 Skin Temperature : Warm Skin Description : Normal for ethnicity Edith Jones Rn - 06/20/2020 1:50 EDT ED General-Functional Assess Information Obtained From : Patient Preferred Communication Mode : Verbal Communication Barrier : None Primary Language : Singaporean Any Spiritual/Cultural Needs or Requests : No Currently in Unsafe Situation : No Edith Jones Rn - 06/20/2020 1:50 EDT Social Habits Smoking Status : Never (less than 100 in lifetime; none in last 30 days) Smokeless Tobacco Status : Never Desires Tobacco Cessation Calc : 0 Edith Jones Rn - 06/20/2020 1:50 EDT Social History (As Of: 06/20/2020 01:54:59 EDT) Tobacco: Smoking Status Never smoker. (Last Updated: 08/12/2014 20:30:11 EST by Sheryl Burnett RN) Alcohol: Use in Last 12 Months: No. (Last Updated: 08/12/2014 20:30:02 EST by Sheryl Burnett, DENZEL) Substance Abuse: Drug Use Hx: No. Use in Last 12 Months: No. (Last Updated: 08/12/2014 20:30:16 EST by Sheryl Burnett, RN) Home/Environment: Lives with Alone. Home equipment: CPAP/BiPAP, Glucose monitoring. (Last Updated: 08/12/2014 20:30:08 EST by Sheryl Burnett RN) Cardiovascular ASMT, ED Cardiovascular Assessment WDL : WDL with exceptions Cardiovascular Symptoms : Chest discomfort at rest, Chest discomfort with activity, Other: tingling in left arm Chest Pain : Yes EKG Completed by : Edith Jones Rn EKG Time Completed : 06/20/2020 1:52 EDT EKG Communicated to Provider : AJ VILLAR MD-EMR EKG Time Communicated to Provider : 06/20/2020 1:53 EDT Edith Jones Rn - 06/20/2020 1:50 EDT Pulses Grid Radial Pulse, Left : 2+ normal Radial Pulse, Right : 2+ normal Edith Jones Rn - 06/20/2020 1:50 EDT Edema Comment : none noted Capillary Refill, Left Hand : Less than/Equal to (</=) 2 seconds Capillary Refill, Right Hand : Less than/Equal to (</=) 2 seconds Clubbing Present : No Heart Sounds : S3 Edith Jones Rn - 06/20/2020 1:50 EDT Electronically signed by [facility] Conversion Computer Consultant Cerner at 12/10/2022 6:45 PM CDT documented in this encounter Plan of Treatment Not on file documented as of this encounter Visit Diagnoses Not on filedocumented in this encounter Care Teams Pantry Cook Relationship Specialty Start Date End Date Igor Meyers MD [address] [place] [address] [place] [id number] PCP - General Family Medicine 11/23/22 08/22/23 Provider, Not In System, CHRISTIAN SALAZAR PCP - General 08/23/23 08/27/24 [facility] Connection, Find-A-Doc [facility] Find-a-Doc [place], [place] [id number] PCP - General 08/28/24 11/06/24 [facility] Connection, Find-A-Doc [facility] Find-a-Doc [place], [place] [id number] PCP - General 11/07/24 02/22/25 [facility], Provider Not In The System, [place] [address] PCP - General 02/23/25 06/26/25 [facility] Connection, Find-A-Doc [facility] [place] [address] PCP - General 06/27/25 documented as of this encounter
--- OUTSIDE RECORDS SUMMARY | 2025-08-12 20:10 | XMS_ITS | Encounter Summary ---
Author Organization [employer] ([place], [place], [place], [place], [place]) Address [address] [place] [address] Care Team Providers Care Market Relationship Manager Name Role Phone Igor Meyers MD Primary Care Provider [phone] Provider, Not In System HUNTING AND FISHING GUIDE Primary Care Provid er Unavailable [facility] Connection, Find-A-Doc Primary Care Provider [facility], Find[facility]A-Doc Primary Care Provider [facility], Provider Not In The System Primary Care Provider Unavailable [facility] Connection, Find-A-Doc Primary Care Provider Encounter Details Date Type Department Care Team (Late st Contact Info) Description 06/20/2020 Transcribed Document [facility] Family Medicine [facility] [place] [address] ProviderRufino MD [address] [place] [address] Social History Tobacco Use Types [...] Rufino ProviderMD - 06/20/2020 1:41 AM CDT [place] Suicide Severity Rating Scale (C-SSRS) Entered On: 06/20/2020 1:50 EDT Performed On: 06/20/2020 1:50 EDT by Edith Jones, Damian [place] Suicide Severity Rating Scale (C-SSRS) CSSRS Past Month Wish to be : No CSSRS Past Month Suicidal Thoughts : No CSSRS Lifetime Suicide Behavior : No Suicide Severity Rating Score : 0 Suicide Severity Rating : No Additional Care Required at this time Edith Jones, Damian - 06/20/2020 1:50 EDT Electronically signed by Alphonse [facility] Conversion Accountant Auditor Cerner at 12/10/2022 6:43 PM CDT documented in this encounter Plan of Treatment Not on file documented as of this encounter Visit Diagnoses Not on filedocumented in this encounter Care Teams Market Relationship Manager Relationship Specialty Start Date End Date Igor Meyers MD [address] [place] [address] PCP - General Family Medicine 11/23/22 08/22/23 Provider, Not In System, CHRISTIAN SALAZAR PCP - General 08/23/23 08/27/24 [facility] Connection, Find[facility]A-Doc [facility] [place] [address] PCP - General 08/28/24 11/06/24 [facility] Connection, Find-A-Doc [facility] Find-a-Doc [place], [place] [address] PCP - General 11/07/24 02/22/25 [facility], Provider Not In The System, [place] [address] PCP - General 02/23/25 06/26/25 [facility] Connection, Find[facility]A-Doc [facility] [place] [address] PCP - General 06/27/25 documented as of this encounter
--- OUTSIDE RECORDS SUMMARY | 2025-08-12 20:10 | XMS_ITS | Encounter Summary ---
Author Organization [employer] ([place], [place], [place], [place], [place]) Address [address] [place] [address] Care Team Providers Care Materials Intern Name Role Phone Igor Meyers MD Primary Care Provider [phone] Provider, Not In System FLUE GAS ANALYST Primary Care Provid er Unavailable [facility], [facility]Doc Primary Care Provider [facility], [facility] Primary Care Provider [facility], Provider Not In The System Primary Care Provider Unavailable [facility], [facility]Doc Primary Care Provider Encounter Details Date Type Department Care Team (Late st Contact Info) Description 05/08/2020 Transcribed Document [facility] Family Medicine [facility] [place] [address] ProviderRufino MD [address] [place] [address] Social History Tobacco Use Types Packs/Day Years Used Date Smoking Tobacco: Never Assessed Comments Unknown Sex and Gender Information Value Date Recorded Sex Assigned at Not on file Legal Sex Female 1:33 PM CDT Gender Identity Not on file Sexual Orientation Not on file documented as of this encounter Miscellaneous Notes * Cerner Conversion Note - Rufino ProviderMD - 05/08/2020 3:59 PM CDT ED Triage Entered On: 05/08/2020 16:06 EDT Performed On: 05/08/2020 16:04 EDT by ALEXANDRA SPEARS RN ED Triage Across the Room Chief Complaint : Patient states wound on left side of neck x3 days Triage Date/Time : 05/08/2020 16:04 EDT ALEXANDRA SPEARS RN - 05/08/2020 16:04 EDT DCP GENERIC CODE Tracking Acuity : 4 - Non - Urgent Tracking Group : [facility] ED [place] ALEXANDRA SPEARS RN - 05/08/2020 16:04 EDT Mode of Arrival : Ambulatory Transported to ED by : Private vehicle To Room Via : Ambulate Accompanied By : Unaccompanied ED Vital Signs : Document Height & Weight : Document ED Allergies : Document ED Reason for Visit : Document Tetanus Immunization : Greater than 5 years ALEXANDRA SPEARS RN - 05/08/2020 16:04 EDT Infectious Disease History Has the patient ever been tested for COVID-19? : No, Patient stated Does patient have symptoms of COVID-19? : No COVID19 Screening : No Experiencing Infectious Disease Symptoms : No symptoms Physical contact outside [place] in the last 30 days : No Infectious Disease History : Chicken pox/Shingles, Herpes, Measles, Mumps Tuberculosis Symptoms : None ALEXANDRA SPEARS RN - 05/08/2020 16:04 EDT Vital Signs ED Temperature Source : Temporal artery scanning Temperature Mode : Fahrenheit Temperature, Fahrenheit : 98.0 Deg F Clinical Temperature, C : 36.7 Deg C Oxygen Therapy Mode : Room air Peripheral Pulse Rate : 81 bpm Respiratory Rate : 16 Breaths/Min Systolic Blood Pressure : 151 mmHg (HI) Diastolic Blood Pressure : 78 mmHg Oxygen Saturation : 98 % ALEXANDRA SPEARS RN - 05/08/2020 16:04 EDT Allergy (As Of: 05/08/2020 16:06:22 EDT) Allergies (Active) ibuprofen Estimated Onset Date: Unspecified ; Created By: Divina Lucas RN; Reaction Status: Active ; Category: Drug ; Substance: ibuprofen ; Type: Allergy ; Updated By: Divina Lucas RN; Reviewed Date: 05/08/2020 16:05 EDT sulfADIAZINE Estimated Onset Date: Unspecified ; Reactions: C/O: a swelling, itching ; Created By: Barb Barrientos RN; Reaction Status: Active ; Category: Drug ; Substance: sulfADIAZINE ; Type: Allergy ; Severity: Severe ; Updated By: Barb Barrientos RN; Reviewed Date: 05/08/2020 16:05 EDT sulfonamides Estimated Onset Date: Unspecified ; Reactions: Itching, Rash ; Created By: Diana Michel, Pharmacist-Resident; Reaction Status: Active ; Category: Drug ; Substance: sulfonamides ; Type: Allergy ; Severity: Moderate ; Updated By: Diana Michel, Pharmacist-Resident; Source: Patient ; Reviewed Date: 05/08/2020 16:05 EDT Diagnosis Control ED (As Of: 05/08/2020 16:06:22 EDT) Problems(Active) Apnea, sleep (SNOMED CT :591435882 ) Name of Problem: Apnea, sleep ; Recorder: Sheryl Burnett RN; Confirmation: Confirmed ; Classification: Patient Stated ; Code: [id number] ; Contributor System: DiBcomChart ; Last Updated: 08/12/2014 20:25 EST ; Life Cycle Date: 08/12/2014 ; Life Cycle Status: Active ; Vocabulary: SNOMED CT Chest pain (SNOMED CT :41945041 ) Name of Problem: Chest pain ; Recorder: WILBER BETTENCOURT PA; Confirmation: Confirmed ; Classification: Medical ; Code: [id number] ; Contributor System: PowerChart ; Last Updated: 04/13/2020 16:52 EDT ; Life Cycle Date: 04/13/2020 ; Life Cycle Status: Active ; Responsible Provider: WILBER BETTENCOURT PA; Vocabulary: SNOMED CT Chronic CHF (SNOMED CT :548887701 ) Name of Problem: Chronic CHF ; Recorder: Sheryl Burnett RN; Confirmation: Confirmed ; Classification: Patient Stated ; Code: [id number] ; Contributor System: PowerChart ; Last Updated: 08/12/2014 20:25 EST ; Life Cycle Date: 08/12/2014 ; Life Cycle Status: Active ; Vocabulary: SNOMED CT COPD (chronic obstructive pulmonary disease) with emphysema (SNOMED CT :835895068 ) Name of Problem: COPD (chronic obstructive pulmonary disease) with emphysema ; Recorder: Sheryl Burnett RN; Confirmation: Confirmed ; Classification: Patient Stated ; Code: [id number] ; Contributor System: PowerChart ; Last Updated: 08/12/2014 20:25 EST ; Life Cycle Date: 08/12/2014 ; Life Cycle Status: Active ; Vocabulary: SNOMED CT Diabetes (SNOMED CT :723163224 ) Name of Problem: Diabetes ; Recorder: Sheryl Burnett RN; Confirmation: Confirmed ; Classification: Patient Stated ; Code: 222820333 ; Contributor System: PowerChart ; Last Updated: 08/12/2014 20:24 EST ; Life Cycle Date: 08/12/2014 ; Life Cycle Status: Active ; Vocabulary: SNOMED CT Genital herpes (SNOMED CT :95303695 ) Name of Problem: Genital herpes ; Recorder: Sheryl Burnett RN; Confirmation: Confirmed ; Classification: Patient Stated ; Code: 76186213 ; Contributor System: PowerChart ; Last Updated: 08/12/2014 20:25 EST ; Life Cycle Date: 08/12/2014 ; Life Cycle Status: Active ; Vocabulary: SNOMED CT History of obstructive sleep apnea (IMO :42196583 ) Name of Problem: History of obstructive sleep apnea ; Recorder: SYSTEM, SYSTEM; Confirmation: Confirmed ; Classification: Medical ; Code: 11101949 ; Last Updated: 03/07/2018 10:59 EDT ; Life Cycle Date: 03/07/2018 ; Life Cycle Status: Active ; Vocabulary: IMO HTN (hypertension) (SNOMED CT :4395701417 ) Name of Problem: HTN (hypertension) ; Recorder: Sheryl Burnett RN; Confirmation: Confirmed ; Classification: Patient Stated ; Code: [id number] ; Contributor System: DiBcomChart ; Last Updated: 08/12/2014 20:24 EST ; Life Cycle Date: 08/12/2014 ; Life Cycle Status: Active ; Vocabulary: SNOMED CT Hydrocephalus (SNOMED CT :359737092 ) Name of Problem: Hydrocephalus ; Recorder: Sheryl Burnett RN; Confirmation: Confirmed ; Classification: Patient Stated ; Code: 294134665 ; Contributor System: PowerChart ; Last Updated: 08/12/2014 20:24 EST ; Life Cycle Date: 08/12/2014 ; Life Cycle Status: Active ; Vocabulary: SNOMED CT Hyperlipemia (SNOMED CT :37642100 ) Name of Problem: Hyperlipemia ; Recorder: Sheryl Burnett RN; Confirmation: Confirmed ; Classification: Patient Stated ; Code: 56576151 ; Contributor System: PowerChart ; Last Updated: 08/12/2014 20:24 EST ; Life Cycle Date: 08/12/2014 ; Life Cycle Status: Active ; Vocabulary: SNOMED CT Myocardial infarction (SNOMED CT :85391300 ) Name of Problem: Myocardial infarction ; Recorder: Lex, Sheryl, RN; Confirmation: Confirmed ; Classification: Patient Stated ; Code: 47451372 ; Contributor System: PowerChart ; Last Updated: 08/12/2014 20:25 EST ; Life Cycle Date: 08/12/2014 ; Life Cycle Status: Active ; Vocabulary: SNOMED CT Diagnoses(Active) Wound reevaluation with or without suture removal Date: 05/08/2020 ; Diagnosis Type: Reason For Visit ; Confirmation: Complaint of ; Clinical Dx: Wound reevaluation with or without suture removal ; Classification: Medical ; Clinical Service: Non-Specified ; Code: PNED ; Probability: 0 ; Diagnosis Code: [id number] ED Height and Weight Height Source : Stated Height Entry Format : [place] Height, Feet : 4 ft(Converted to: 122 cm, 48 Inch) Height, Inches : 11 Inch(Converted to: 0 ft 11 Inch, 27.94 cm) Clinical Height : 149.86 cm Weight Source, ED : Critical estimated dosing weight Weight Entry Format : [place] Weight, Pounds : 200 lb Clinical Dosing Weight : 90.91 kg Body Surface Area (BSA) : 1.85 m2 Body Mass Index : 40.5 kg/m2 (>HHI) [place] Body Weight (IBW) : 42.87 kg ALEXANDRA SPEARS RN - 05/08/2020 16:04 EDT documented in this encounter Plan of Treatment Not on file documented as of this encounter Visit Diagnoses Not on filedocumented in this encounter Care Teams Materials Intern Relationship Specialty Start Date End Date Igor Meyers MD [address] [place] [address] PCP - General Family Medicine 11/23/22 08/22/23 Provider, Not In System, CHRISTIAN SALAZAR PCP - General 08/23/23 08/27/24 [facility], [facility] [place] [address] PCP - General 08/28/24 11/06/24 [facility], [facility] [place] [address] PCP - General 11/07/24 02/22/25 [facility], Provider Not In The System, [place] [address] PCP - General 02/23/25 06/26/25 [facility], [facility] [place] [address] PCP - General 06/27/25 documented as of this encounter
--- OUTSIDE RECORDS SUMMARY | 2025-08-12 20:10 | XMS_ITS | Encounter Summary ---
Author Organization [employer] ([place], [place], [place], [place], [place]) Address [address] [place] [address] Care Team Providers Care Civil Engineer'S Aide Name Role Phone Igor Meyers MD Primary Care Provider [phone] Provider, Not In System AUTOMOTIVE ARTIST Primary Care Provid er Unavailable [facility], [facility]Doc Primary Care Provider [facility], [facility] Primary Care Provider [facility], Provider Not In The System Primary Care Provider Unavailable [facility], [facility]Doc Primary Care Provider Encounter Details Date Type Department Care Team (Late st Contact Info) Description 11/20/2018 Transcribed Document [facility] Family Medicine [facility] [place] [address] ProviderRufino MD [address] [place] [address] Social History Tobacco Use Types Packs/Day Years Used Date Smoking Tobacco: Never Assessed Comments Unknown Sex and Gender Information Value Date Recorded Sex Assigned at Not on file Legal Sex Female 1:33 PM CDT Gender Identity Not on file Sexual Orientation Not on file documented as of this encounter Miscellaneous Notes * Cerner Conversion Note - Rufino ProviderMD - 11/20/2018 5:03 PM CDT ED Assessment Entered On: 11/20/2018 18:08 EDT Performed On: 11/20/2018 17:05 EDT by LEE BLAKELY BEHAVIORAL INTERVENTION SPECIALIST Quick Look Assessment Level of Consciousness : Alert, Awake Affect/Behavior : Appropriate, Calm, Cooperative Orientation : Oriented x 4 LEE BLAKELY RN - 11/20/2018 18:07 EDT ED General-Functional Assess Preferred Communication Mode : Verbal Communication Barrier : None Primary Language : Wallisian Any Spiritual/Cultural Needs or Requests : No Currently in Unsafe Situation : No LEE BLAKELY RN - 11/20/2018 18:07 EDT Social Habits Smoking Status : Never (less than 100 in lifetime; none in last 30 days) Smokeless Tobacco Status : Never Desires Tobacco Cessation Calc : 0 LEE BLAKELY RN - 11/20/2018 18:07 EDT Social History (As Of: 11/20/2018 18:08:44 EDT) Tobacco: Smoking Status Never smoker. (Last [...] 08/12/2014 20:30:08 EST by Sheryl Burnett, RN) Cardiovascular ASMT, ED Cardiovascular Symptoms : Chest pain at rest Heart Rhythm : Regular LEE BLAKELY RN - 11/20/2018 18:07 EDT Respiratory Respiratory Assessment WDL : WDL LEE BLAKELY RN - 11/20/2018 18:07 EDT documented in this encounter Plan of Treatment Not on file documented as of this encounter Visit Diagnoses Not on filedocumented in this encounter Care Teams Civil Engineer'S Aide Relationship Specialty Start Date End Date Igor Meyers MD [address] [place] [address] PCP - General Family Medicine 11/23/22 08/22/23 Provider, Not In System, CHRISTIAN SALAZAR PCP - General 08/23/23 08/27/24 [facility] Connection, [facility]Doc [facility] [place] [address] PCP - General 08/28/24 11/06/24 [facility], [facility] [place] [address] PCP - General 11/07/24 02/22/25 [facility], Provider Not In The System, [place] [address] PCP - General 02/23/25 06/26/25 [facility], [facility] [place] [address] PCP - General 06/27/25 documented as of this encounter
--- OUTSIDE RECORDS SUMMARY | 2025-08-12 20:10 | XMS_ITS | Encounter Summary ---
Author Organization [employer] ([place], [place], [place], [place], [place]) Address [address] [place] [address] Care Team Providers Care Interactive Digital Media Specialist Name Role Phone Igor Meyers MD Primary Care Provider [phone] Provider, Not In System SENIOR MEDICAL DIRECTOR Primary Care Provid er Unavailable [facility], [facility]Doc Primary Care Provider [facility], [facility] Primary Care Provider [facility], Provider Not In The System Primary Care Provider Unavailable [facility], Find-A-Doc Primary Care Provider Encounter Details Date Type Department Care Team (Late st Contact Info) Description 11/08/2018 Transcribed Document [facility] Family Medicine [facility] [place] [address] ProviderRufino MD [address] [place] [address] Social History Tobacco Use Types Packs/Day Years Used Date Smoking Tobacco: Never Assessed Comments Unknown Sex and Gender Information Value Date Recorded Sex Assigned at Not on file Legal Sex Female 1:33 PM CDT Gender Identity Not on file Sexual Orientation Not on file documented as of this encounter Miscellaneous Notes * Cerner Conversion Note - Historical ProviderMD - 11/08/2018 6:06 PM CDT [facility] [address] [place] [address] PERSON INFORMATION Name ROBERTO RANDLE Age 58 Years 1960 Sex Female Language Serbian PCP FELIPE FERRO [facility] Marital Status Med Service Emergency Medicine Acct# Arrival 11/08/2018 14:10:00 Visit Reason Chest pain; CHEST PAIN Acuity 2 - Emergent LOS 000 03:56 Depart Date: 11/08/18 06:06 PM Address: Kaleb SUAREZ [address] [facility] [address] Comment: PROVIDER INFORMATION Provider Role Assigned Unassigned DEE HERNANDEZ MD-[facility] ED Physician 11/08/2018 14:28:21 SHAWN MELENDEZ, WEATHERIZATION AND HOUSING INSPECTOR Nurse 11/08/2018 14:48:32 DIAGNOSIS Atypical chest pain PHYS DOC NOTES VITALS INFORMATION Vital Sign Triage Latest Temp Source Oral Oral Temp Mode Fahrenheit Fahrenheit Temp Fahrenheit 98.0 Deg F 98.0 Deg F Temp Celsius 02 Sat 97 % 98 % Respiratory Rate 18 Breaths/Min 18 Breaths/Min Peripheral Pulse Rate 75 bpm 75 bpm Apical Heart Rate Blood Pressure 115 mmHg / 77 mmHg 116 mmHg / 60 mmHg Comment: MEDICAL INFORMATION Allergy Info: sulfADIAZINE; sulfonamides Medications: Comment: DISCHARGE INFORMATION Discharge Disposition: Home Discharge Location: PATIENT EDUCATION INFORMATION Instructions: Nonspecific Chest Pain Follow up: With: Address: When: MARIELA KEARNS [address] [place], [place] [id number] Business (1) Within 2 to 3 days With: Address: When: Return to Emergency Department Within As needed Comments: Return if condition worsens. Continue your current medications as prescribed. Take nitroglycerin as needed for pain and chest discomfort. Follow-up with cardiology as an outpatient as directed by Dr. Kearns or call the office for further care and direction. Return to ER if pain is different or getting markedly worse. With: Address: When: FELIPE FERRO [address] [address] Business (1) Within 2 to 3 days Comment: documented in this encounter Plan of Treatment Not on file documented as of this encounter Visit Diagnoses Not on filedocumented in this encounter Care Teams Interactive Digital Media Specialist Relationship Specialty Start Date End Date Igor Meyers MD [address] [place] [address] PCP - General Family Medicine 11/23/22 08/22/23 Provider, Not In System, CHRISTIAN SALAZAR PCP - General 08/23/23 08/27/24 [facility], [facility] [place] [address] PCP - General 08/28/24 11/06/24 [facility], [facility] Find-a-Doc [place], [place] [id number] PCP - General 11/07/24 02/22/25 [facility], Provider Not In The System, [place] [address] PCP - General 02/23/25 06/26/25 [facility], [facility]Doc [facility] [place] [address] PCP - General 06/27/25 documented as of this encounter
--- OUTSIDE RECORDS SUMMARY | 2025-08-12 20:10 | XMS_ITS | Encounter Summary ---
Author Organization [employer] ([place], [place], [place], [place], [place]) Address [address] [place] [address] Care Team Providers Care Coffee Grower Name Role Phone Igor Hairston MD Primary Care Provider [phone] Provider, Not In System WET FINISHER WOOL Primary Care Provid er Unavailable [facility] Connection, [facility] Primary Care Provider [facility], [facility] Primary Care Provider [facility], Provider Not In The System Primary Care Provider Unavailable [facility], [facility] Primary Care Provider Encounter Details Date Type Department Care Team (Late st Contact Info) Description 06/20/2020 Transcribed Document [facility] Family Medicine [facility] [place] [address] ProviderRufino MD [address] [place] [address] Social History Tobacco Use Types Packs/Day Years Used Date Smoking Tobacco: Never Assessed Comments Unknown Sex and Gender Information Value Date Recorded Sex Assigned at Not on file Legal Sex Female 1:33 PM CDT Gender Identity Not on file Sexual Orientation Not on file documented as of this encounter Miscellaneous Notes * Cerner Conversion Note - Rufino ProviderMD - 06/20/2020 6:43 AM CDT [address] [address] ROBERTO RANDLE :1960 Visit Time:06/20/2020 Your Visit Summary Your Care Team Primary Provider: AJ VILLAR Secondary Provider: Your Diagnosis Chest pain Chest pain Medical Information You may obtain a [...] do next Follow-Up Appointments Follow Up with Follow up with primary care provider When Within 2 to 3 days Follow Up with IGOR HAIRSTON When Within 2 to 3 days Where: [place] [place] [address]- Business (1) Allergies sulfADIAZINE (C/O: a swelling, itching) sulfonamides (Rash, Itching) ibuprofen Immunizations This Visit No Immunizations Found Medications What How Much When Instructions Next Dose acetaminophen-hydrocodone (Chester 5 mg-325 mg oral tablet) 1 Tablet(s) Oral Three Times A Day as needed for for pain Duration: 2 Day(s) Printed Prescription amLODIPine 5 Milligram(s) Oral Every Day atorvastatin (atorvastatin 40 mg oral tablet) 1 Tablet(s) Oral Every Day cholecalciferol (Vitamin D3) 2,000 International Units Oral Every Day furosemide (furosemide 40 mg oral tablet) Oral Every Day glyBURIDE 10 Milligram(s) Oral Every Day insulin glargine (Basaglar KwikPen) 10 Unit(s) SubCutaneous Every Day as needed for Hyperglycemia metFORMIN (metformin) 1,000 Milligram(s) Oral Two Times A Day multivitamin Every Day nitroglycerin (Nitrostat 0.4 mg sublingual tablet) 1 Tablet(s) SubLINgual Every 5 minutes as needed for as needed for chest pain ondansetron (Zofran ODT 4 mg oral tablet, disintegrating) 1 Tablet(s) Oral Three Times A Day Duration: 5 Day(s) ondansetron (Zofran ODT 4 mg oral tablet, disintegrating) 1 Tablet(s) Oral Three Times A Day Duration: 5 Day(s) potassium chloride (potassium chloride 20 mEq oral tablet, extended release) Oral Every Day pregabalin (Lyrica) 75 Milligram(s) Oral Two Times A Day ranolazine (Ranexa 1000 mg oral tablet, extended release) 1 Tablet(s) Oral Two Times A Day Duration: 30 Day(s) ranolazine (Ranexa 500 mg oral tablet, extended release) 1 Tablet(s) Oral Two Times A Day Duration: 30 Day(s) rivaroxaban (Xarelto 10 mg oral tablet) 1 Tablet(s) Oral Every Day SITagliptin (Januvia) 100 Milligram(s) Oral Every Day traZODone (traZODone 100 mg oral tablet) 1 Tablet(s) Oral At Bedtime The home medications listed are only as [...] This Visit (last charted value for your 06/20/2020 visit) Hematology 06/20/2020 1:58 AM WBC: 11.7 K/uL -- Normal range between ( 3.9 and 10.0 ) RBC: 4.77 Million/uL -- Normal range between ( 3.93 and 5.22 ) Hct: 41.9 % -- Normal range between ( 34.1 and 44.9 ) Hgb: 13.7 Gram/dL -- Normal range between ( 11.2 and 15.7 ) Platelet Count: 249 K/uL -- Normal range between ( 163 and 369 ) MCH: 28.7 pg -- Normal range between ( 25.6 and 32.2 ) MCHC: 32.7 Gram/dL -- Normal range between ( 32.3 and 36.5 ) MCV: 87.8 fL -- Normal range between ( 79.0 and 94.8 ) Slide Review: No Eos %: 1.3 % -- Normal range between ( 1.0 and 7.0 ) Mcleod #: 0.61 K/uL -- Normal range between ( 0.24 and 0.82 ) Eos #: 0.15 K/uL -- Normal range between ( 0.04 and 0.54 ) Mcleod %: 5.2 % -- Normal range between ( 4.7 and 12.5 ) Baso %: 0.4 % -- Normal range between ( 0.0 and 1.0 ) Baso #: 0.05 K/uL -- Normal range between ( 0.01 and 0.08 ) RDW: 13.3 % -- Normal range between ( 11.6 and 14.4 ) Neut %: 65.7 % -- Normal range between ( 34.0 and 71.0 ) Neut #: 7.67 K/uL -- Normal range between ( 1.56 and 6.13 ) Lymph %: 26.5 % -- Normal range between ( 19.3 and 53.0 ) Lymph #: 3.10 K/uL -- Normal range between ( 1.18 and 3.74 ) MPV: 10.6 fL -- Normal range between ( 9.4 and 12.4 ) IG#: 0 x10(3)/uL IG%: 1 % -- Normal range between ( 0 and 1 ) General Chemistry 06/20/2020 1:58 AM Creatinine Level: 0.68 mg/dL -- Normal range between ( 0.55 and 1.02 ) Sodium Level: 138 mmol/L -- Normal range between ( 136 and 146 ) Potassium Level: 3.9 mmol/L -- Normal range between ( 3.5 and 5.1 ) Chloride Level: 105 mmol/L -- Normal range between ( 102 and 112 ) Carbon Dioxide Level: 23 mmol/L -- Normal range between ( 21 and 32 ) Anion Gap: 14 -- Normal range between ( 9 and 20 ) Bilirubin Total: 0.3 mg/dL -- Normal range between ( 0.2 and 1.3 ) A/G Ratio: 0.9 -- Normal range between ( 1.1 and 2.5 ) ALT: 35 Units/Liter -- Normal range between ( 12 and 78 ) AST: 33 Units/Liter -- Normal range between ( 5 and 37 ) Globulin: 3.7 Gram/dL -- Normal range between ( 1.5 and 4.5 ) Alk Phos: 76 Units/Liter -- Normal range between ( 27 and 136 ) Bun/Creatinine: 32.4 -- Normal range between ( 8.0 and 20.0 ) Calcium Level: 9.8 mg/dL -- Normal range between ( 8.5 and 10.1 ) eGFR : >60 mL/min/1.73m2 eGFR NonAfrican: >60 mL/min/1.73m2 Glucose Level: 208 mg/dL -- Normal range between ( 74 and 106 ) Blood Urea Nitrogen: 22 mg/dL -- Normal range between ( 7 and 22 ) Protein Total: 7.1 Gram/dL -- Normal range between ( 6.4 and 8.2 ) Albumin Level: 3.4 Gram/dL -- Normal range between ( 3.4 and 5.0 ) Lipase Level: 856 Units/Liter -- Normal range between ( 73 and 393 ) Cardiac Specific Markers 06/20/2020 4:36 AM Troponin I Ultra: <0.015 ng/mL -- Normal range between ( 0.015 and 0.045 ) 06/20/2020 1:58 AM ProBNP: 20 pg/mL -- Normal range between ( 0 and 125 ) Coagulation 06/20/2020 1:58 AM INR: 1.1 -- Normal range between ( 0.9 and 1.1 ) PT: 11.4 Second(s) -- Normal range between ( 9.6 and 11.5 ) Education Materials Nonspecific Chest Pain Chest pain can be caused by many different conditions. Some causes of chest pain can be life-threatening. These will require treatment right away. Serious causes of chest pain include: ??? Heart attack. ??? A tear in the body's main blood vessel. ??? Redness and swelling (inflammation) around your heart. ??? Blood clot in your lungs. Other causes of chest pain may not be so serious. These include: ??? Heartburn. ??? Anxiety or stress. ??? Damage to bones or muscles in your chest. ??? Lung infections. Chest pain can feel like: ??? Pain or discomfort in your chest. ??? Crushing, pressure, aching, or squeezing pain. ??? Burning or tingling. ??? Dull or sharp pain that is worse when you move, cough, or take a deep breath. ??? Pain or discomfort that is also felt in your back, neck, jaw, shoulder, or arm, or pain that spreads to any of these areas. It is hard to know whether your pain is caused by something that is serious or something that is not so serious. So it is important to see your doctor right away if you have chest pain. Follow these instructions at home: Medicines ??? Take wjlm-[id number] and prescription medicines only as told by your doctor. ??? If you were prescribed an antibiotic medicine, take it as told by your doctor. Do not stop taking the antibiotic even if you start to feel better. Lifestyle ??? Rest as told by your doctor. ??? Do not use any products that contain nicotine or tobacco, such as cigarettes, e-cigarettes, and chewing tobacco. If you need help quitting, ask your doctor. ??? Do not drink alcohol. ??? Make lifestyle changes as told by your doctor. These may include: ? Getting regular exercise. Ask your doctor what activities are safe for you. ? Eating a heart-healthy diet. A diet and procurement specialist (dietitian) can help you to learn healthy eating options. ? Staying at a healthy weight. ? Treating diabetes or high blood pressure, if needed. ? Lowering your stress. Activities such as yoga and relaxation techniques can help. General instructions ??? Pay attention to any changes in your symptoms. Tell your doctor about them or any new symptoms. ??? Avoid any activities that cause chest pain. ??? Keep all follow-up visits as told by your doctor. This is important. You may need more testing if your chest pain does not go away. Contact a doctor if: ??? Your chest pain does not go away. ??? You feel depressed. ??? You have a fever. Get help right away if: ??? Your chest pain is worse. ??? You have a cough that gets worse, or you cough up blood. ??? You have very bad (severe) pain in your belly (abdomen). ??? You pass out (faint). ??? You have either of these for no clear reason: ? Sudden chest discomfort. ? Sudden discomfort in your arms, back, neck, or jaw. ??? You have shortness of breath at any time. ??? You suddenly start to sweat, or your skin gets clammy. ??? You feel sick to your stomach (nauseous). ??? You throw up (vomit). ??? You suddenly feel lightheaded or dizzy. ??? You feel very weak or tired. ??? Your heart starts to beat fast, or it feels like it is skipping beats. These symptoms may be an emergency. Do not wait to see if the symptoms will go away. Get medical help right away. Call your local emergency services (911 in the [place] Do not drive yourself to the hospital. Summary ??? Chest pain can be caused by many different conditions. The cause may be serious and need treatment right away. If you have chest pain, see your doctor right away. ??? Follow your doctor's instructions for taking medicines and making lifestyle changes. ??? Keep all follow-up visits as told by your doctor. This includes visits for any further testing if your chest pain does not go away. ??? Be sure to know the signs that show that your condition has become worse. Get help right away if you have these symptoms. This information is not intended to replace advice given to you by your health care provider. Make sure you discuss any questions you have with your health care provider. Document Released: 01/29/2009 Document Revised: 02/13/2019 Document Reviewed: 02/13/2019 Elsevier Patient Education ?? 2019 [employer] Emergency Awareness and Preventative Care STROKE [...] Assistance with quitting is available by contacting 6-927-XZCBNOW. This is a free resource providing counseling, support, and referral. Or you may contact your personal physician. [employer] Suicide Prevention Lifeline: The National Suicide Prevention [...] including: emergency, radiology, or pathology physicians. Patient Name:ROBERTO RANDLE I have received this information and was given the opportunity to ask questions. Patient/Forestry Technical Officer Name: Patient/Forestry Technical Officer Signature: Relationship to Patient: Clinician/Hospital Forestry Technical Officer Signature: Please Provide a Telephone Number Where You Can Be Reached: Is it Permissible To Leave a Message? Date: Electronically signed by Alphonse [facility] Conversion Explosives Engineer Cerner at 12/10/2022 6:52 PM CDT documented in this encounter Plan of Treatment Not on file documented as of this encounter Visit Diagnoses Not on filedocumented in this encounter Care Teams Coffee Grower Relationship Specialty Start Date End Date Igor Hairston MD [address] [place] [id number] PCP - General Family Medicine 11/23/22 08/22/23 Provider, Not In System, CHRISTIAN SALAZAR PCP - General 08/23/23 08/27/24 [facility], [facility] [place] [address] PCP - General 08/28/24 11/06/24 [facility], [facility] [place] [address] PCP - General 11/07/24 02/22/25 [facility], Provider Not In The System, [address] [place] [address] PCP - General 02/23/25 06/26/25 [facility], [facility] [place] [address] PCP - General 06/27/25 documented as of this encounter
--- OUTSIDE RECORDS SUMMARY | 2025-08-12 20:10 | XMS_ITS | Encounter Summary ---
Author Organization [employer] ([place], [place], [place], [place], [place]) Address [address] [place] [address] Care Team Providers Care Retail Equipment Associate Name Role Phone Igor Meyers MD Primary Care Provider [phone] Provider, Not In System ASSEMBLER BONDING Primary Care Provid er Unavailable [facility], [facility] Primary Care Provider [facility], [facility] Primary Care Provider [facility], Provider Not In The System Primary Care Provider Unavailable [facility], [facility] Primary Care Provider Encounter Details Date Type Department Care Team (Late st Contact Info) Description 11/20/2018 Transcribed Document [facility] Family [place] [facility] [place] [address] ProviderRufino MD [address] [place] [address] Social History Tobacco Use Types Packs/Day Years Used Date Smoking Tobacco: Never Assessed Comments Unknown Sex and Gender Information Value Date Recorded Sex Assigned at Not on file Legal Sex Female 1:33 PM CDT Gender Identity Not on file Sexual Orientation Not on file documented as of this encounter Miscellaneous Notes * Cerner Conversion Note - Rufino ProviderMD - 11/20/2018 11:04 PM CDT ED Discharge Entered On: 11/20/2018 23:05 EDT Performed On: 11/20/2018 23:04 EDT by HYUN APODACA mobile battery technician Process Patient Disposition : Admit/Observe Personal Belongings With Patient : Yes Patient Education Completed : Yes Teaching Evaluation : Verbalizes understanding IV Discontinued : No Nursing Documentation Completed : Yes HYUN APODACA RN - 11/20/2018 23:04 EDT Admission, ED Nurse Report Accepted By : Julissa MAHONEY Tele Nurse Report Acceptance Time : 11/20/2018 23:05 EDT `Nurse Report (Hand Off) : Called Accompanied By, Discharge : Unaccompanied Fluids/Drips Continued on Admission : No HYUN APODACA RN - 11/20/2018 23:04 EDT Electronically [address] by [facility] Conversion Classifications Officer Cc/Cm Cerner at 12/10/2022 6:35 PM CDT documented in this encounter Plan of Treatment Not on file documented as of this encounter Visit Diagnoses Not on filedocumented in this encounter Care Teams Retail Equipment Associate Relationship Specialty Start Date End Date Igor Meyers MD [address] [place] [id number] PCP - General Family Medicine 11/23/22 08/22/23 Provider, Not In System, CHRISTIAN SALAZAR PCP - General 08/23/23 08/27/24 [facility], [facility] [place] [address] PCP - General 08/28/24 11/06/24 [facility], [facility] [place] [id number] PCP - General 11/07/24 02/22/25 [facility], Provider Not In The System, [place] [address] PCP - General 02/23/25 06/26/25 [facility], [facility] [place] [id number] PCP - General 06/27/25 documented as of this encounter
--- OUTSIDE RECORDS SUMMARY | 2025-08-12 20:10 | XMS_ITS | Encounter Summary ---
Author Organization [employer] ([place], [place], [place], [place], [place]) Address [address] [place] [address] Care Team Providers Care Hebrew Cantor Name Role Phone Igor Meyers MD Primary Care Provider [phone] Provider, Not In System ENGINE BUILDUP MECHANIC Primary Care Provid er Unavailable [facility] Connection, Find-A-Doc Primary Care Provider [facility], [facility]Doc Primary Care Provider [facility], Provider Not In The System Primary Care Provider Unavailable [facility] Connection, Find-A-Doc Primary Care Provider Encounter Details Date Type Department Care Team (Late st Contact Info) Description 11/08/2018 Transcribed Document [facility] [place] [facility] [place] [address] ProviderRufino MD [address] [place] [address] Social History Tobacco Use Types Packs/Day Years Used Date Smoking Tobacco: Never Assessed Comments Unknown Sex and Gender Information Value Date Recorded Sex Assigned at Not on file Legal Sex Female 1:33 PM CDT Gender Identity Not on file Sexual Orientation Not on file documented as of this encounter Miscellaneous Notes * Cerner Conversion Note - Historical ProviderMD - 11/08/2018 4:39 PM CDT Patient: ROBERTO RANDLE Age: 58 years Sex: Female : 1960 Associated Diagnoses: Atypical chest pain Author: DEE HERNANDEZ MD-EMR Basic Information Additional information: Chief Complaint from Nursing Triage Note : Chief Complaint 11/08/2018 14:16 EDT Chief Complaint PT c/o CP that started this AM as midsternal and is now radiating down left arm, pain is rated 8/10, reports nausea and SOA as well, resp even and unlabored . History of Present Illness 58-year-old white female established patient of Dr. Sen and with h/o CAD, HTN, HLD, and COPD here from Dr. Marbella Malcolm office in [place] with concern for abnormal chemical stress test this week and with c/o chest pain. Pt reports tightness and pressure with stabbing pains of the left chest radiating at times the left arm with shortness of breath starting yesterday and continuing off and on today. Patient reports shortness of breath, denies any relieving or exacerbating factors. Her home oxygen seems to help. She is not having any cough or upper respiratory symptoms. Patient was concerned maybe she's having a cardiac issue and saw Dr. Malcolm about this. She apparently was at the office today to review the results and was told her pain worsen or she was concerned to come to the emergency room. Patient reports aspirin en route by EMS and 2 nitroglycerin at home without any change. 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 Pt says her pain today is similar to the past. She denies other complaints at this time. The patient presents with chest pain. The onset was 1 days ago. The course/duration of symptoms is constant and fluctuating in intensity. Location: Left chest. Radiating pain: left arm. The character of symptoms is tightness, pressure, sharp and stabbing. The degree at onset was minimal. The degree at maximum was moderate. The degree at present is minimal. The exacerbating factor is none. The relieving factor is oxygen. Risk factors consist of coronary artery disease, hypertension, hyperlipidemia, pulmonary embolism, deep vein thrombosis and Prior history of PE/DVT. Prior episodes: non-cardiac. Therapy today Nitroglycerin and Aspirin. Associated symptoms: shortness of breath. Review of Systems Constitutional symptoms: Negative except as documented in HPI. Skin symptoms: Negative except as documented in HPI. Eye symptoms: Negative except as documented in HPI. ENMT symptoms: Negative except as documented in HPI. Respiratory symptoms: Negative except as documented in HPI. Cardiovascular symptoms: Negative except as documented in HPI. Gastrointestinal symptoms: Negative except as documented in HPI. Genitourinary symptoms: Negative except as documented in HPI. Musculoskeletal symptoms: Negative except as documented in HPI. Neurologic symptoms: Negative except as documented in HPI. Psychiatric symptoms: Negative except as documented in HPI. Endocrine symptoms: Negative except as documented in HPI. Health Status Allergies: Allergic Reactions (Selected) Severe SulfADIAZINE- Itching. Moderate Sulfonamides- Itching and rash.. Medications: (Selected) Inpatient Medications Ordered Nitro-Bid 2% transdermal ointment: 0.5 Inch, Topical, 1-Time Documented Medications Documented Basaglar KwikPen 100 units/mL subcutaneous solution: 13 Units, SubCutaneous, At Bedtime, 0 Refill(s) Incruse Ellipta 62.5 mcg/inh inhalation powder: 62.5 mcg, Inhalation, [id number] Nitrostat 0.4 mg sublingual tablet: 1 Tab, SubLINgual, Q5Min, PRN: as needed for chest pain, 100 Tab, 0 Refill(s) PRAVAstatin: 20 mg, Oral, Daily, 0 Refill(s) Vitamin D3 2000 units oral tablet: 1 Tab, Oral, Daily Xarelto 10 mg oral tablet: 1 Tab, Oral, Daily, 0 Refill(s) amLODIPine: 5 mg, Oral, Daily, 0 Refill(s) amitriptyline: 50 mg, Oral, At Bedtime, 0 Refill(s) carvedilol 12.5 mg oral tablet: 1 Tab, Oral, BID, 0 Refill(s) docusate sodium 100 mg oral tablet: 1 Tab, Oral, BID, PRN: as needed for constipation fluticasone 50 mcg/inh nasal spray: 1 [place], Nasal, Daily, in each nostril, 16 Gram, 0 Refill(s) furosemide 20 mg oral tablet: 1 Tab, Oral, Daily gabapentin: 600 mg, Oral, TID, 0 Refill(s) glyBURIDE: 5 mg, Oral, Daily, 0 Refill(s) loratadine 10 mg oral tablet: 1 Tab, Oral, Daily, 0 Refill(s) meloxicam 7.5 mg oral tablet: 1 Tab, Oral, Daily, 0 Refill(s) metformin: 1,000 mg, Oral, BID, 0 Refill(s) omeprazole: 40 mg, Oral, Daily, 0 Refill(s) topiramate: 100 mg, Oral, At Bedtime, 0 Refill(s) trazodone: 100 mg, Oral, At Bedtime, 0 Refill(s). Past Medical/ Family/ Social History Medical history Reviewed as documented in chart. 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 hysterectomy. tubal. Cholecystectomy; (71970). Multiple brain surgeries. Heart surgery as child., Reviewed as documented in chart. Family history: No family history items have been selected or recorded.. Social history: Social & Psychosocial Habits Alcohol [...] apnea HTN (hypertension) Hydrocephalus Hyperlipemia Myocardial infarction . Physical Examination Vital Signs Vital Signs/Vital Measures 11/08/2018 14:16 EDT Temperature Source Oral Temperature Mode Fahrenheit Temperature, Fahrenheit 98.0 Deg F Clinical Temperature, C 36.7 Deg C Peripheral Pulse Rate 75 bpm Respiratory Rate 18 Breaths/Min Systolic Blood Pressure 115 mmHg Diastolic Blood Pressure 77 mmHg Oxygen Saturation 97 % . Measurements 11/08/2018 14:16 EDT Height Source Stated Height Entry Format [place] Height/Length, MALIAN (ft) 4 ft Height/Length MALIAN 11 Inch CLINICALHEIGHT 149.86 cm [place] Body Weight 42.87 kg Weight Source, ED Standing scale Weight Entry Format [place] Weight [place] lb 202 lb CLINICALWEIGHT 91.82 kg Body Surface Area (BSA) 1.85 m2 Body Mass Index 40.9 kg/m2 >HHI . Oxygen Saturation 11/08/2018 14:16 EDT Oxygen Saturation 97 % . General: Alert, no acute distress. Skin: Warm, dry, pink. Ears, nose, mouth and throat: Oral mucosa moist, no pharyngeal erythema or exudate, no oral lesions. Cardiovascular: Regular rate and rhythm, Normal peripheral perfusion. Respiratory: Lungs are clear to auscultation, respirations are non-labored, breath sounds are equal. Chest wall: Tender to palpation left anterior chest wall. Back: Nontender. Musculoskeletal: Normal ROM, Trace edema BLE. Gastrointestinal: Soft, Nontender, Non distended. Neurological: Alert and oriented to person, place, time, and situation. Medical Decision Making Documents reviewed: Emergency department nurses' notes. Electrocardiogram: Time 11/08/2018 14:21:00, rate 75, normal sinus rhythm, EP Interp, Nonspecific ST changes. No significant change from priors. Results review: Lab results : Lab Results 11/08/2018 15:26 EDT ProBNP 35 pg/mL WBC 11.4 K/uL HI RBC 4.87 Million/uL Hgb 13.6 Gram/dL Hct 40.7 % MCV 83.6 fL MCH 27.9 pg MCHC 33.4 Gram/dL Platelet Count 206 K/uL MPV 10.6 fL RDW 13.9 % Neut % 60.1 % Neut # 6.85 K/uL HI Lymph % 31.2 % Lymph # 3.56 K/uL Seneca % 5.6 % Seneca # 0.64 K/uL Eos % 2.0 % Eos # 0.23 K/uL Baso % 0.5 % Baso # 0.06 K/uL Slide Review No IG# 0 x10(3)/uL IG% 1 % 11/08/2018 14:25 EDT Sodium Level 138 mmol/L Potassium Level 4.1 mmol/L Chloride Level 106 mmol/L Carbon Dioxide Level 23 mmol/L Anion Gap 13 Glucose Level 120 mg/dL HI Blood Urea Nitrogen 11 mg/dL Creatinine Level 0.45 mg/dL LOW eGFR >60 mL/min/1.73m2 eGFR NonAfrican >60 mL/min/1.73m2 Bun/Creatinine 24.4 HI Calcium Level 8.6 mg/dL Protein Total 6.7 Gram/dL Albumin Level 3.5 Gram/dL Globulin 3.2 Gram/dL A/G Ratio 1.1 Bilirubin Total 0.3 mg/dL Alk Phos 94 Units/Liter AST 27 Units/Liter ALT 30 Units/Liter Troponin I Ultra <0.015 ng/mL . Radiology results: Radiology Results (Last 48 hours) [id number] -- 11/08/2018 14:10 CR Chest 1 Vw Portable (11/08/2018 14:38) Result: PORTABLE CHEST HISTORY: Precordial chest pain .COMPARISON: July 03, 2018.FINDINGS: The heart is mildly enlarged. 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 The mediastinum is unremarkable. There is unchangedbibasilar scarring or atelectasis since prior. There is no pneumothorax.IMPRESSION: Unchanged bibasilar scarring or atelectasis.Images reviewed, interpreted, and dictated by Dr. Magan Arroyo.Transcribed by Lawanda Kwong (R), LMRI have personally viewed, interpreted and dictated the examination. Ihave read and agree with the above final transcribed report. . Procedure Heart Score Heart History: Slightly suspicious: Yes 0. EKG: Non-specific repolarization disturbance: Yes +1. Age: 45 - 65: Yes +1. Risk Factors: Risk Factors include: Hypertension, 1 - 2 risk factors: Yes +1. Troponin: Less than or equal to normal limit: Yes 0. Scorin to 3: 1.6% risk of MACE. Impression and Plan 58-year-old white female with known history of septal branch occlusion, on medical management, here with complaint of chest pain and possible abnormal chemical stress test this week. I discussed the patient with cardiology and the patient was seen in the ER by Dr. Thayer, who spoke wtih Dr. Malcolm and reviewed stress results. The results apparently show a minimal abnormality/low risk result as explained to me. There is no indication for heart catheterization at this time. Patient looks well, she is not currently having chest pain on reexamination. EKG, troponin, imaging are negative. CTA chest was obtained given a reported history of PE and DVT and is normal. Patient is well established with cardiology, she is to follow-up as scheduled and continue her nitroglycerin as needed for pain. Pt dc home. Diagnosis Atypical chest pain - Discharge, Emergency medicine, Medical Plan Condition: Improved, Stable. Disposition: Discharged Admit/Transfer/Discharge: Discharge (Order): Start: 11/08/2018 17:26 EDT, Discharge to: Home. Patient was given the following educational materials: Nonspecific Chest Pain. Follow up with: FELIPE FERRO Within 2 to 3 days; Return to Emergency Department Within As needed Return if condition worsens. Continue your current medications as prescribed. Take nitroglycerin as needed for pain and chest discomfort. Follow-up with cardiology as an outpatient as directed by Dr. Thayer or call the office for further care and direction. Return to ER if pain is different or getting markedly worse.; AVICHAI ERES Within 2 to 3 days. Counseled: Patient, Regarding diagnosis, Regarding diagnostic results, Regarding treatment plan, Regarding prescription, Patient indicated understanding of instructions. Electronically signed by Alphonse [facility] Conversion Roll Forming Machine Operator Cerner at 12/10/2022 6:47 PM CDT documented in this encounter Plan of Treatment Not on file documented as of this encounter Visit Diagnoses Not on filedocumented in this encounter Care Teams Hebrew Cantor Relationship Specialty Start Date End Date Igor Meyers MD [address] [place] [address] PCP - General Family Medicine 11/23/22 08/22/23 Provider, Not In System, CHRISTIAN SALAZAR PCP - General 08/23/23 08/27/24 [facility], Find-A-Doc [facility] [place] [address] PCP - General 08/28/24 11/06/24 [facility], [facility]Doc [facility] [place] [address] PCP - General 11/07/24 02/22/25 [facility], Provider Not In The System, [place] [address] PCP - General 02/23/25 06/26/25 [facility], Find-A-Doc [facility]-a-Doc [place], [place] [id number] PCP - General 06/27/25 documented as of this encounter
--- OUTSIDE RECORDS SUMMARY | 2025-08-12 20:10 | XMS_ITS | Encounter Summary ---
Author Organization [employer] ([place], [place], [place], [place], [place]) Address [address] [place] [address] Care Team Providers Care Enrollment Management Coordinator Name Role Phone Igor Meyers MD Primary Care Provider [phone] Provider, Not In System LENS CUTTER Primary Care Provid er Unavailable [facility], Find-A-Doc Primary Care Provider [facility], [facility]Doc Primary Care Provider [facility], Provider Not In The System Primary Care Provider Unavailable [facility], [facility]A-Doc Primary Care Provider Encounter Details Date Type Department Care Team (Late st Contact Info) Description 05/05/2019 Transcribed Document [facility] [place] [address] ProviderRufino MD [address] [place] [address] Social History Tobacco Use Types [...] ProviderMD - 05/05/2019 12:44 AM CDT ED Assessment Entered On: 05/05/2019 2:28 EDT Performed On: 05/05/2019 1:00 EDT by Pastora Fajardo Rn ED Quick Look Assessment Level of Consciousness : Alert, Awake Affect/Behavior : Appropriate, Calm, Cooperative Orientation : Oriented x 4 Skin Temperature : Warm Skin Description : Dry, [place] Pastora Fajardo Rn - 05/05/2019 2:26 EDT ED General-Functional Assess Information Obtained From : Patient Preferred Communication Mode : Verbal Communication Barrier : None Primary Language : Gambian Any Spiritual/Cultural Needs or Requests : No Currently in Unsafe Situation : No Pastora Fajardo Rn - 05/05/2019 2:26 EDT Social Habits Smoking Status : Never (less than 100 in lifetime; none in last 30 days) Smokeless Tobacco Status : Never Desires Tobacco Cessation Calc : 0 Pastora Fajardo Rn - 05/05/2019 2:26 EDT Social History (As Of: 05/05/2019 02:28:52 EDT) Tobacco: Smoking Status Never smoker. (Last [...] (Last Updated: 08/12/2014 20:30:08 EST by Sheryl Burentt, DENZEL) Cardiovascular ASMT, ED Detailed Cardiovascular Assessment : Open Pastora Fajardo Rn - 05/05/2019 2:26 EDT Cardiovascular ASMT, Detailed Cardiac Rhythm : Normal sinus rhythm Cardiac Rhythm Comment : pt c/o chest pain that started around 1130 pm last night. pt also c/o dull pain in her right arm. pt states she had heart sx when she wass little but has no clue what it was for. pt sees dr james, no hx of stent placement, etc. pt aaox4. pt skin pwd. (Comment: resps even and unlabored. [Pastora Fajardo Rn - 05/05/2019 2:26 EDT] ) Pastora Fajardo Rn - 05/05/2019 2:26 EDT documented in this encounter Plan of Treatment Not on file documented as of this encounter Visit Diagnoses Not on filedocumented in this encounter Care Teams Enrollment Management Coordinator Relationship Specialty Start Date End Date Igor Meyers MD [address] [place] [address] PCP - General Family Medicine 11/23/22 08/22/23 Provider, Not In System, CHRISTIAN SALAZAR PCP - General 08/23/23 08/27/24 [facility], [facility]Doc [facility] [place] [address] PCP - General 08/28/24 11/06/24 [facility], [facility]Doc [facility] [place] [address] PCP - General 11/07/24 02/22/25 [facility], Provider Not In The System, [address] [place] [address] PCP - General 02/23/25 06/26/25 [facility], Find-A-Doc [facility] Find-a-Doc [place], [place] [id number] PCP - General 06/27/25 documented as of this encounter
--- OUTSIDE RECORDS SUMMARY | 2025-08-12 20:10 | XMS_ITS | Encounter Summary ---
Author Organization [employer] ([place], [place], [place], [place], [place]) Address [address] [place] [address] Care Team Providers Care Data Coordinator Name Role Phone Igor Meyers MD Primary Care Provider [phone] Provider, Not In System PUBLIC ADDRESS SYSTEMS MECHANIC Primary Care Provid er Unavailable [facility], Find-A-Doc Primary Care Provider [facility], [facility]Doc Primary Care Provider [facility], Provider Not In The System Primary Care Provider Unavailable [facility], Find-A-Doc Primary Care Provider Encounter Details Date Type Department Care Team (Late st Contact Info) Description 11/08/2018 Transcribed Document [facility] [place] [facility] [place] [address] ProviderRufino MD [address] [place] [address] Social History Tobacco Use Types Packs/Day Years Used Date Smoking Tobacco: Never Assessed Comments Unknown Sex and Gender Information Value Date Recorded Sex Assigned at Not on file Legal Sex Female 1:33 PM CDT Gender Identity Not on file Sexual Orientation Not on file documented as of this encounter Miscellaneous Notes * Cerner Conversion Note - Rufino ProviderMD - 11/08/2018 2:10 PM CDT ED Assessment Entered On: 11/08/2018 15:21 EDT Performed On: 11/08/2018 15:20 EDT by SHAWN MELENDEZ, HIDE CLEANER Quick Look Assessment Level of Consciousness : Alert, Awake Affect/Behavior : Appropriate, Calm, Cooperative SHAWN MELENDEZ RN - 11/08/2018 15:20 EDT ED General-Functional Assess Preferred Communication Mode : Verbal Communication Barrier : None Primary Language : Portuguese Any Spiritual/Cultural Needs or Requests : No Currently in Unsafe Situation : No SHAWN MELENDEZ RN - 11/08/2018 15:20 EDT Social Habits Smoking Status : Never (less than 100 in lifetime; none in last 30 days) Smokeless Tobacco Status : Never Desires Tobacco Cessation Calc : 0 SHAWN MELENDEZ RN - 11/08/2018 15:20 EDT Social History (As Of: 11/08/2018 15:21:07 EDT) Tobacco: Smoking Status Never smoker. (Last [...] Sheryl Burnett, RN) Cardiovascular ASMT, ED Cardiovascular Assessment WDL : WDL with exceptions Cardiovascular Symptoms : Chest discomfort at rest Nail Bed Color : [place] Chest Pain : Yes SHAWN MELENDEZ RN - 11/08/2018 15:20 EDT Electronically signed by Alphonse [facility] Conversion Crm Marketing Manager Cerner at 12/10/2022 6:46 PM CDT documented in this encounter Plan of Treatment Not on file documented as of this encounter Visit Diagnoses Not on filedocumented in this encounter Care Teams Data Coordinator Relationship Specialty Start Date End Date Igor Meyers MD [address] [place] [address] PCP - General Family Medicine 11/23/22 08/22/23 Provider, Not In System, CHRISTIAN SALAZAR PCP - General 08/23/23 08/27/24 [facility], Find-A-Doc [facility] [place] [address] PCP - General 08/28/24 11/06/24 [facility], Find[facility]Doc [facility] Find-a-Doc [place], [place] [id number] PCP - General 11/07/24 02/22/25 [facility], Provider Not In The System, [place] [address] PCP - General 02/23/25 06/26/25 [facility], [facility]Doc [facility] [place] [address] PCP - General 06/27/25 documented as of this encounter
--- OUTSIDE RECORDS SUMMARY | 2025-08-12 20:10 | XMS_ITS | Encounter Summary ---
Author Organization [employer] ([place], [place], [place], [place], [place]) Address [address] [place] [address] Care Team Providers Care Pelt Grader Name Role Phone Igor Meyers MD Primary Care Provider [phone] Provider, Not In System CUSTOMS COMPLIANCE MANAGER Primary Care Provid er Unavailable [facility], Find[facility]A-Doc Primary Care Provider [facility], [facility]Doc Primary Care Provider [facility], Provider Not In The System Primary Care Provider Unavailable [facility], Find[facility]A-Doc Primary Care Provider Encounter Details Date Type Department Care Team (Late st Contact Info) Description 06/20/2019 Transcribed Document [facility] [place] [facility] [place] [address] ProviderRufino MD [address] [place] [address] Social History Tobacco Use Types Packs/Day Years Used Date Smoking Tobacco: Never Assessed Comments Unknown Sex and Gender Information Value Date Recorded Sex Assigned at Not on file Legal Sex Female 1:33 PM CDT Gender Identity Not on file Sexual Orientation Not on file documented as of this encounter Miscellaneous Notes * Cerner Conversion Note - Rufino ProviderMD - 06/20/2019 6:23 PM CDT ED Discharge Entered On: 06/20/2019 18:24 EDT Performed On: 06/20/2019 18:23 EDT by YAZAN ELI, internship coordinator Process Patient Disposition : Discharge Teaching Evaluation : Verbalizes understanding IV Discontinued : Not applicable YAZAN ELI RN - 06/20/2019 18:23 EDT ED Discharge Discharge To : Home without planned follow-up Mode Of Departure : Ambulatory Discharge Instructions Reviewed With, Opportunity For Questions Given : Patient Prescriptions Given to Patient : Yes Number of Prescriptions Given : 1 YAZAN ELI, RN - 06/20/2019 18:23 EDT Electronically signed by Alphonse [facility] Conversion Logging Assistant Cerner at 12/10/2022 6:41 PM CDT documented in this encounter Plan of Treatment Not on file documented as of this encounter Visit Diagnoses Not on filedocumented in this encounter Care Teams Pelt Grader Relationship Specialty Start Date End Date Igor Meyers MD [address] [place] [address] PCP - General Family Medicine 11/23/22 08/22/23 Provider, Not In System, CHRISTIAN SALAZAR PCP - General 08/23/23 08/27/24 [facility], Find-A-Doc [facility] [place] [address] PCP - General 08/28/24 11/06/24 [facility], Find[facility]A-Doc [facility] [place] [address] PCP - General 11/07/24 02/22/25 [facility], Provider Not In The System, [place] [address] PCP - General 02/23/25 06/26/25 [facility], [facility]A-Doc [facility] [place] [address] PCP - General 06/27/25 documented as of this encounter
--- OUTSIDE RECORDS SUMMARY | 2025-08-12 20:10 | XMS_ITS | Encounter Summary ---
Author Organization [employer] ([place], [place], [place], [place], [place]) Address [address] [place] [address] Care Team Providers Care Map Compiler Name Role Phone Igor Meyers MD Primary Care Provider [phone] Provider, Not In System CASKET TRIMMER Primary Care Provid er Unavailable [facility], Find-A-Doc Primary Care Provider [facility], [facility] Primary Care Provider [facility], Provider Not In The System Primary Care Provider Unavailable [facility], [facility]Doc Primary Care Provider Encounter Details Date Type Department Care Team (Late st Contact Info) Description 11/08/2018 Transcribed Document [facility] [place] Family Medicine [address] [place] [address] ProviderRufino MD [address] [place] [address] Social History Tobacco Use Types Packs/Day Years Used Date Smoking Tobacco: Never Assessed Comments Unknown Sex and Gender Information Value Date Recorded Sex Assigned at Not on file Legal Sex Female 1:33 PM CDT Gender Identity Not on file Sexual Orientation Not on file documented as of this encounter Miscellaneous Notes * Cerner Conversion Note - Rufino ProviderMD - 11/08/2018 6:06 PM CDT documented in this encounter Plan of Treatment Not on file documented as of this encounter Visit Diagnoses Not on filedocumented in this encounter Care Teams Map Compiler Relationship Specialty Start Date End Date Igor Meyers MD [address] [place] [address] VINNY Jasso [id number] PCP - General Family Medicine 11/23/22 08/22/23 Provider, Not In System, CHRISTIAN SALAZAR PCP - General 08/23/23 08/27/24 [facility], Find-A[facility]Doc [facility] Find-a-Doc [place], [place] [id number] PCP - General 08/28/24 11/06/24 [facility], [facility] [place] [address] PCP - General 11/07/24 02/22/25 [facility], Provider Not In The System, [place] [address] PCP - General 02/23/25 06/26/25 [facility], [facility]Doc [facility] Find-a-Doc [place], [place] [id number] PCP - General 06/27/25 documented as of this encounter
--- OUTSIDE RECORDS SUMMARY | 2025-08-12 20:10 | XMS_ITS | Encounter Summary ---
Author Organization [employer] ([place], [place], [place], [place], [place]) Address [address] [place] [address] Care Team Providers Care Field Crew Chief Name Role Phone Igor Meyers MD Primary Care Provider [phone] Provider, Not In System DIRECTOR OF HEALTH CARE MARKETING Primary Care Provid er Unavailable [facility], Find[facility]A-Doc Primary Care Provider [facility], [facility]Doc Primary Care Provider [facility], Provider Not In The System Primary Care Provider Unavailable [facility], Find[facility]A-Doc Primary Care Provider Encounter Details Date Type Department Care Team (Late st Contact Info) Description 05/05/2019 Transcribed Document [facility] [place] Medicine [facility] [place] [address] ProviderRufino MD [address] [place] [address] Social History Tobacco Use Types Packs/Day Years Used Date Smoking Tobacco: Never Assessed Comments Unknown Sex and Gender Information Value Date Recorded Sex Assigned at Not on file Legal Sex Female 1:33 PM CDT Gender Identity Not on file Sexual Orientation Not on file documented as of this encounter Miscellaneous Notes * Cerner Conversion Note - Rufino ProviderMD - 05/05/2019 6:56 AM CDT RONNY Lugo [address] [address] ROBERTO RANDLE :1960 Visit Time:05/05/2019 Your Visit Summary Your Care Team Admitting Physician - MARCELO PERDOMO STEVEN JOSEPH, MD-EMR Attending Physician - CURT FLORENTINO MD-EMR Primary Care Physician - ABRAHAM LAYNE (REF), Referring Physician - LEANNE, SELF REFERRED Your Diagnosis Acute chest pain Atypical chest pain Chest pain, Chest pain Coronary artery disease Diabetes Right arm pain Medical Information You may obtain a [...] do next Follow-Up Appointments Follow Up with ABRAHAM (REF) XI When Within 2 to 3 days Comments Please see your primary care provider for further evaluation for possible nerve entrapment in your right arm. Where: [address] [place] [address]- Business (1) Follow Up with JED ROSALES When Within 2 to 3 days Where: [address] [place] [address] Business (1) Allergies sulfADIAZINE (itching) sulfonamides (Rash, Itching) Immunizations This Visit No Immunizations Found Medications What How Much When Instructions Next Dose New acetaminophen-hydrocodone ([place] 5 mg-325 mg oral tablet) 1 Tablet(s) Oral Every 6 Hours Duration: 3 Day(s) may substitute hydrocodone/ acetaminophen generic; VALID FOR 5 CALENDAR DAYS Printed Prescription The home medications listed are [...] This Visit (last charted value for your 05/05/2019 visit) Hematology 05/05/19 01:09:00 WBC: 11.8 K/uL -- Normal range between ( 3.9 and 10.0 ) RBC: 4.84 Million/uL -- Normal range between ( 3.93 and 5.22 ) Hct: 42.1 % -- Normal range between ( 34.1 and 44.9 ) Hgb: 14.0 Gram/dL -- Normal range between ( 11.2 and 15.7 ) Platelet Count: 289 K/uL -- Normal range between ( 163 and 369 ) MCH: 28.9 pg -- Normal range between ( 25.6 and 32.2 ) MCHC: 33.3 Gram/dL -- Normal range between ( 32.3 and 36.5 ) MCV: 87.0 fL -- Normal range between ( 79.0 and 94.8 ) Slide Review: No RDW: 13.5 % -- Normal range between ( 11.6 and 14.4 ) MPV: 11.1 fL -- Normal range between ( 9.4 and 12.4 ) General Chemistry 05/05/19 01:09:00 Creatinine Level: 0.69 mg/dL -- Normal range between ( 0.55 and 1.02 ) Sodium Level: 140 mmol/L -- Normal range between ( 136 and 146 ) Potassium Level: 4.2 mmol/L -- Normal range between ( 3.5 and 5.1 ) Chloride Level: 105 mmol/L -- Normal range between ( 102 and 112 ) Carbon Dioxide Level: 26 mmol/L -- Normal range between ( 21 and 32 ) Anion Gap: 13 -- Normal range between ( 9 and 20 ) Bilirubin Total: 0.4 mg/dL -- Normal range between ( 0.2 and 1.3 ) A/G Ratio: 1.2 -- Normal range between ( 1.1 and 2.5 ) ALT: 29 Units/Liter -- Normal range between ( 12 and 78 ) AST: 33 Units/Liter -- Normal range between ( 5 and 37 ) Globulin: 3.1 Gram/dL -- Normal range between ( 1.5 and 4.5 ) Alk Phos: 89 Units/Liter -- Normal range between ( 27 and 136 ) Bun/Creatinine: 18.8 -- Normal range between ( 8.0 and 20.0 ) Calcium Level: 9.2 mg/dL -- Normal range between ( 8.5 and 10.1 ) eGFR : >60 mL/min/1.73m2 eGFR NonAfrican: >60 mL/min/1.73m2 Glucose Level: 280 mg/dL -- Normal range between ( 74 and 106 ) Blood Urea Nitrogen: 13 mg/dL -- Normal range between ( 7 and 22 ) Protein Total: 6.7 Gram/dL -- Normal range between ( 6.4 and 8.2 ) Albumin Level: 3.6 Gram/dL -- Normal range between ( 3.4 and 5.0 ) Cardiac Specific Markers 05/05/19 03:50:00 Troponin I Ultra: <0.015 ng/mL -- Normal range between ( 0.015 and 0.045 ) Education Materials Nonspecific Chest Pain Chest pain can be caused by many different conditions. There is always a chance that your pain could be related to something serious, such as a heart attack or a blood clot in your lungs. Chest pain can also be caused by conditions that are not life-threatening. If you have chest pain, it is very important to follow up with your health care provider. What are the causes? Causes of this condition include: ??? Heartburn. ??? Pneumonia or bronchitis. ??? Anxiety or stress. ??? Inflammation around your heart (pericarditis) or lung (pleuritis or pleurisy). ??? A blood clot in your lung. ??? A collapsed lung (pneumothorax). This can develop suddenly on its own (spontaneous pneumothorax) or from trauma to the chest. ??? Shingles infection (varicella-zoster virus). ??? Heart attack. ??? Damage to the bones, muscles, and cartilage that make up your chest wall. This can include: ? Bruised bones due to injury. ? Strained muscles or cartilage due to frequent or repeated coughing or overwork. ? Fracture to one or more ribs. ? Sore cartilage due to inflammation (costochondritis). What increases the risk? Risk factors for this condition may include: ??? Activities that increase your risk for trauma or injury to your chest. ??? Respiratory infections or conditions that cause frequent coughing. ??? Medical conditions or overeating that can cause heartburn. ??? Heart disease or family history of heart disease. ??? Conditions or health behaviors that increase your risk of developing a blood clot. ??? Having had chicken pox (varicella zoster). What are the signs or symptoms? Chest pain can feel like: ??? Burning or tingling on the surface of your chest or deep in your chest. ??? Crushing, pressure, aching, or squeezing pain. ??? Dull or sharp pain that is worse when you move, cough, or take a deep breath. ??? Pain that is also felt in your back, neck, shoulder, or arm, or pain that spreads to any of these areas. Your chest pain may come and go, or it may stay constant. How is this diagnosed? Lab tests or other studies may be needed to find the cause of your pain. Your health care provider may have you take a test called an ECG (electrocardiogram). An ECG records your heartbeat patterns at the time the test is performed. You may also have other tests, such as: ??? Transthoracic echocardiogram (TTE). In this test, sound waves are used to create a picture of the heart structures and to look at how blood flows through your heart. ??? Transesophageal echocardiogram (HUSSEIN). This is a more advanced imaging test that takes images from inside your body. It allows your health care provider to see your heart in finer detail. ??? Cardiac monitoring. This allows your health care provider to monitor your heart rate and rhythm in real time. ??? Holter monitor. This is a portable device that records your heartbeat and can help to diagnose abnormal heartbeats. It allows your health care provider to track your heart activity for several days, if needed. ??? Stress tests. These can be done through exercise or by taking medicine that makes your heart beat more quickly. ??? Blood tests. ??? Other imaging tests. How is this treated? Treatment depends on what is causing your chest pain. Treatment may include: ??? Medicines. These may include: ? Acid blockers for heartburn. ? Anti-inflammatory medicine. ? Pain medicine for inflammatory conditions. ? Antibiotic medicine, if an infection is present. ? Medicines to dissolve blood clots. ? Medicines to treat coronary artery disease (CAD). ??? Supportive care for conditions that do not require medicines. This may include: ? Resting. ? Applying heat or cold packs to injured areas. ? Limiting activities until pain decreases. Follow these instructions at home: Medicines ??? If you were prescribed an antibiotic, take it as told by your health care provider. Do not stop taking the antibiotic even if you start to feel better. ??? Take [id number] and prescription medicines only as told by your health care provider. Lifestyle ??? Do not use any products that contain nicotine or tobacco, such as cigarettes and e-cigarettes. If you need help quitting, ask your health care provider. ??? Do not drink alcohol. ??? Make lifestyle changes as directed by your health care provider. These may include: ? Getting regular exercise. Ask your health care provider to suggest some activities that are safe for you. ? Eating a heart-healthy diet. A registered dietitian can help you to learn healthy eating options. ? Maintaining a healthy weight. ? Managing diabetes, if necessary. ? Reducing stress, such as with yoga or relaxation techniques. General instructions ??? Avoid any activities that bring on chest pain. ??? If heartburn is the cause for your chest pain, raise (elevate) the head of your bed about 6 inches (15 cm) by putting blocks under the legs. Sleeping with more pillows does not effectively relieve heartburn because it only changes the position of your head. ??? Keep all follow-up visits as told by your health care provider. This is important. This includes any further testing if your chest pain does not go away. Contact a health care provider if: ??? Your chest pain does not go away. ??? You have a rash with blisters on your chest. ??? You have a fever. ??? You have chills. Get help right away if: ??? Your chest pain is worse. ??? You have a cough that gets worse, or you cough up blood. ??? You have severe pain in your abdomen. ??? You have severe weakness. ??? You faint. ??? You have sudden, unexplained chest discomfort. ??? You have sudden, unexplained discomfort in your arms, back, neck, or jaw. ??? You have shortness of breath at any time. ??? You suddenly start to sweat, or your skin gets clammy. ??? You feel nauseous or you vomit. ??? You suddenly feel light-headed or dizzy. ??? Your heart begins to beat quickly, or it feels like it is skipping beats. These symptoms may represent a serious problem that is an emergency. Do not wait to see if the symptoms will go away. Get medical help right away. Call your local emergency services (911 in the [place] Do not drive yourself to the hospital. This information is not intended to replace advice given to you by your health care provider. Make sure you discuss any questions you have with your health care provider. Document Released: 05/23/2006 Document Revised: 05/07/2017 Document Reviewed: 05/07/2017 [employer] Patient Education ?? 2019 [employer] Emergency Awareness and Preventative Care STROKE [...] Assistance with quitting is available by contacting 3-207-FCSYNOW. This is a free resource providing counseling, [...] was given the opportunity to ask questions. Patient/Roading Engineer Name: Patient/Roading Engineer Signature: Relationship to Patient: Clinician/Hospital Roading Engineer Signature: Please Provide a Telephone Number Where You Can Be Reached: Is it Permissible To Leave a Message? Date: Electronically signed by Alphonse, [facility] Conversion Informatica Cerner at 12/10/2022 6:48 PM CDT documented in this encounter Plan of Treatment Not on file documented as of this encounter Visit Diagnoses Not on filedocumented in this encounter Care Teams Field Crew Chief Relationship Specialty Start Date End Date Igor Meyers MD [address] [place] [address] PCP - General Family Medicine 11/23/22 08/22/23 Provider, Not In System, CHRISTIAN SALAZAR PCP - General 08/23/23 08/27/24 [facility], [facility]Doc [facility] Find-a-Doc [place], [place] [id number] PCP - General 08/28/24 11/06/24 [facility], Find-A-Doc [facility] Find-a-Doc [place], [place] [id number] PCP - General 11/07/24 02/22/25 [facility], Provider Not In The System, [address] [place] [address] PCP - General 02/23/25 06/26/25 [facility], Find[facility]A-Doc [facility] Find-a-Doc [place], [place] [id number] PCP - General 06/27/25 documented as of this encounter
--- OUTSIDE RECORDS SUMMARY | 2025-08-12 20:10 | XMS_ITS | Encounter Summary ---
Author Organization [employer] ([place], [place], [place], [place], [place]) Address [address] [place] [address] Care Team Providers Care Drug And Alcohol Counselor Name Role Phone Igor Meyers MD Primary Care Provider [phone] Provider, Not In System DATA PROCESSING SYSTEMS CONSULTANT Primary Care Provid er Unavailable [facility], Find[facility]A-Doc Primary Care Provider [facility], [facility]Doc Primary Care Provider [facility], Provider Not In The System Primary Care Provider Unavailable [facility], Find-A-Doc Primary Care Provider Encounter Details Date Type Department Care Team (Late st Contact Info) Description 06/20/2019 Transcribed Document [facility] Family [place] [address] ProviderRufino MD [address] [place] [address] Social History Tobacco Use Types Packs/Day Years Used Date Smoking Tobacco: Never Assessed Comments Unknown Sex and Gender Information Value Date Recorded Sex Assigned at Not on file Legal Sex Female 1:33 PM CDT Gender Identity Not on file Sexual Orientation Not on file documented as of this encounter Miscellaneous Notes * Cerner Conversion Note - Rufino ProviderMD - 06/20/2019 1:07 PM CDT ED Assessment Entered On: 06/20/2019 15:25 EDT Performed On: 06/20/2019 15:22 EDT by YAZAN ELI RN ED Quick Look Assessment Level of Consciousness : Alert, Awake Affect/Behavior : Appropriate, Calm, Cooperative Orientation : Oriented x 4 Skin Temperature : Warm Skin Description : Normal for ethnicity YAZAN ELI RN - 06/20/2019 15:22 EDT ED General-Functional Assess Preferred Communication Mode : Verbal Communication Barrier : None Primary Language : Namibian Any Spiritual/Cultural Needs or Requests : No Currently in Unsafe Situation : No YAZAN ELI RN - 06/20/2019 15:22 EDT Social Habits Smoking Status : Never (less than 100 in lifetime; none in last 30 days) Smokeless Tobacco Status : Never Desires Tobacco Cessation Calc : 0 YAZAN ELI RN - 06/20/2019 15:22 EDT Social History (As Of: 06/20/2019 15:25:04 EDT) Tobacco: Smoking Status Never smoker. (Last [...] 08/12/2014 20:30:08 EST by Sheryl Burnett, RN) EENT Assessment EENT Assessment WDL : YAZAN BRAXTON RN - 06/20/2019 15:22 EDT Cardiovascular ASMT, ED Cardiovascular Assessment WDL : YAZAN BRAXTON RN - 06/20/2019 15:22 EDT Respiratory Respiratory Assessment WDL : YAZAN BRAXTON RN - 06/20/2019 15:22 EDT Breath Sounds Assessment Grid All Lobes Breath Sounds : Clear EVAN : Clear LLL : Clear RUL : Clear RML : Clear RLL : Clear YAZAN ELI RN - 06/20/2019 15:22 EDT Gastrointestinal ED Gastrointestinal Assessment WDL : YAZAN BRAXTON RN - 06/20/2019 15:22 EDT Genitourinary Assessment, ED Genitourinary Assessment WDL : YAZAN BRAXTON RN - 06/20/2019 15:22 EDT Musculoskeletal Musculoskeletal Assessment Comment : low back pain, denies numbness and tingling, denies bowel or bladder dysfunction. YAZAN ELI RN - 06/20/2019 15:22 EDT Integumentary Assessment Integumentary Assessment WDL : WDL YAZAN ELI RN - 06/20/2019 15:22 EDT Neurologic ASMT, ED Neurologic Assessment WDL : WDL Facial Symmetry : Symmetric Gait Assistance Level : Independent, complete [place] Coma Scale Link : Open GCS YAZAN ELI RN - 06/20/2019 15:22 EDT Lynn Coma [place] Best Motor Response : Obey commands [place] Best Verbal Response : Oriented Lynn Eye Opening Response : Spontaneous [place] Coma Score : 15 YAZAN ELI RN - 06/20/2019 15:22 EDT Electronically signed by [facility], [facility] Conversion Unleavened Dough Mixer Cerner at 12/10/2022 6:47 PM CDT documented in this encounter Plan of Treatment Not on file documented as of this encounter Visit Diagnoses Not on filedocumented in this encounter Care Teams Drug And Alcohol Counselor Relationship Specialty Start Date End Date Igor Meyers MD [address] [place] [address] PCP - General Family Medicine 11/23/22 08/22/23 Provider, Not In System, CHRISTIAN SALAZAR PCP - General 08/23/23 08/27/24 [facility] Connection, Find-A-Doc [facility] Find-a-Doc [place], [place] [id number] PCP - General 08/28/24 11/06/24 [facility], Find-A-Doc [facility] Find-a-Doc [place], [place] [id number] PCP - General 11/07/24 02/22/25 [facility], Provider Not In The System[place] [address] PCP - General 02/23/25 06/26/25 [facility], Find-A-Doc [facility] Find-a-Doc [place], [place] [id number] PCP - General 06/27/25 documented as of this encounter
--- OUTSIDE RECORDS SUMMARY | 2025-08-12 20:10 | XMS_ITS | Encounter Summary ---
Author Organization [employer] ([place], [place], [place], [place], [place]) Address [address] [place] [address] Care Team Providers Care Driver Education Road Instructor Name Role Phone Igor Meyers MD Primary Care Provider [phone] Provider, Not In System LEASE ADMINISTRATION ANALYST Primary Care Provid er Unavailable [facility] Connection, Find-A-Doc Primary Care Provider [facility], [facility]Doc Primary Care Provider [facility], Provider Not In The System Primary Care Provider Unavailable [facility] Connection, Find-A-Doc Primary Care Provider Encounter Details Date Type Department Care Team (Late st Contact Info) Description 06/20/2019 Transcribed Document [facility] Family Medicine [facility] [place] [address] ProviderRufino MD [address] [place] [address] Social History Tobacco Use Types Packs/Day Years Used Date Smoking Tobacco: Never Assessed Comments Unknown Sex and Gender Information Value Date Recorded Sex Assigned at Not on file Legal Sex Female 1:33 PM CDT Gender Identity Not on file Sexual Orientation Not on file documented as of this encounter Miscellaneous Notes * Cerner Conversion Note - Rufino ProviderMD - 06/20/2019 2:27 PM CDT Pain Assessment Entered On: 06/20/2019 17:48 EDT Performed On: 06/20/2019 17:48 EDT by YAZAN ELI, RN Intervention Information: acetaminophen-HYDROcodone Performed by YAZAN ELI, RN on 06/20/2019 16:35:00 EDT acetaminophen-HYDROcodone,1Tab Oral Pain Assessment Pain Assessment : Follow-up assessment Pain Scale Used : 0-10 Scale YAZAN ELI RN - 06/20/2019 17:48 EDT Pain Scale Intensity : 5 YAZAN ELI RN - 06/20/2019 17:48 EDT Image 4 - Images currently included in the form version of this document have not been included in the text rendition version of the form. Electronically signed by [facility], [facility] Conversion Litigator Cerner at 12/10/2022 6:41 PM CDT documented in this encounter Plan of Treatment Not on file documented as of this encounter Visit Diagnoses Not on filedocumented in this encounter Care Teams Driver Education Road Instructor Relationship Specialty Start Date End Date Igor Meyers MD [address] [place] [address] PCP - General Family Medicine 11/23/22 08/22/23 Provider, Not In System, CHRISTIAN SALAZAR PCP - General 08/23/23 08/27/24 [facility] Connection, [facility]Doc [facility] [place], [place] [id number] PCP - General 08/28/24 11/06/24 [facility] Connection, [facility] [place] [address] PCP - General 11/07/24 02/22/25 [facility], Provider Not In The System, [place] [address] PCP - General 02/23/25 06/26/25 [facility] Connection, [facility] [place], [place] [id number] PCP - General 06/27/25 documented as of this encounter
--- OUTSIDE RECORDS SUMMARY | 2025-08-12 20:10 | XMS_ITS | Encounter Summary ---
Author Organization [employer] ([place], [place], [place], [place], [place]) Address [address] [place] [address] Care Team Providers Care Surgical Rn Name Role Phone Igor Meyers MD Primary Care Provider [phone] Provider, Not In System HANDLE MACHINE OPERATOR Primary Care Provid er Unavailable [facility] Connection, Find-A-Doc Primary Care Provider [facility], [facility] Primary Care Provider [facility], Provider Not In The System Primary Care Provider Unavailable [facility] Connection, Find-A-Doc Primary Care Provider Encounter Details Date Type Department Care Team (Late st Contact Info) Description 06/20/2019 Transcribed Document [facility] Family Medicine Formerly [facility] [place] [address] ProviderRufino MD [address] [place] [address] Social History Tobacco Use Types [...] ProviderMD - 06/20/2019 1:07 PM CDT ED Triage Entered On: 06/20/2019 13:29 EDT Performed On: 06/20/2019 13:26 EDT by SHAWN MELENDEZ RN ED Triage Across the Room Triage Date/Time : 06/20/2019 13:26 EDT Chief Complaint : PT c/o left lower back pain that started about a week ago and got worse today, denies injury, denies dysuria, pain rated 9/10, resp even and unlabored SHAWN MELENDEZ RN - 06/20/2019 13:26 EDT DCP GENERIC CODE Tracking Acuity : 3 - Urgent Tracking Group : [facility] SHAWN MELENDEZ RN - 06/20/2019 13:26 EDT Mode of Arrival : Ambulatory Transported to ED by : Private vehicle To Room Via : Ambulate Accompanied By : Friend ED Vital Signs : Document Height & Weight : Document ED Allergies : Document ED Reason for Visit : Document Tetanus Immunization : Less than 5 years SHAWN MELENDEZ RN - 06/20/2019 13:26 EDT Infectious Disease History Infectious Disease History : Chicken pox/Shingles, Herpes, Measles, Mumps Fever/Chills Last 48 Hours : No Travel To Regions with Travel Advisories : No Travel Outside [place] Within Last 30 Days : No Contact With Traveler to Advisory Region : No Tuberculosis Symptoms : None SHAWN MELENDEZ RN - 06/20/2019 13:26 EDT Vital Signs ED Temperature Source : Oral Temperature Mode : Fahrenheit Temperature, Fahrenheit : 97.2 Deg F Clinical Temperature, C : 36.2 Deg C Peripheral Pulse Rate : 86 bpm Respiratory Rate : 18 Breaths/Min Systolic Blood Pressure : 132 mmHg Diastolic Blood Pressure : 97 mmHg (HI) Oxygen Saturation : 96 % SHAWN MELENDEZ RN - 06/20/2019 13:26 EDT Allergy (As Of: 06/20/2019 13:29:13 EDT) Allergies (Active) sulfADIAZINE Estimated Onset Date: Unspecified ; Reactions: itching ; Created By: Ella Phelan Rn; Reaction Status: Active ; Category: Drug ; Substance: sulfADIAZINE ; Type: Allergy ; Severity: Severe ; Updated By: Ella Phelan Rn; Reviewed Date: 06/20/2019 13:28 EDT sulfonamides Estimated Onset Date: Unspecified ; Reactions: Itching, Rash ; Created By: Diana Michel, Pharmacist-Resident; Reaction Status: Active ; Category: Drug ; Substance: sulfonamides ; Type: Allergy ; Severity: Moderate ; Updated By: Diana Michel, Pharmacist-Resident; Source: Patient ; Reviewed Date: 06/20/2019 13:28 EDT Diagnosis Control ED (As Of: 06/20/2019 13:29:13 EDT) Problems(Active) Apnea, sleep (SNOMED CT :764686422 ) Name of Problem: Apnea, sleep ; Recorder: Sheryl Burnett RN; Confirmation: Confirmed ; Classification: Patient Stated ; Code: [id number] ; Contributor System: [employer] ; Last Updated: 08/12/2014 20:25 EST ; Life Cycle Date: 08/12/2014 ; Life Cycle Status: Active ; Vocabulary: SNOMED CT Chronic CHF (SNOMED CT :515782206 ) Name of Problem: Chronic CHF ; Recorder: Sheryl Burnett RN; Confirmation: Confirmed ; Classification: Patient Stated ; Code: 483699381 ; Contributor System: PowerChart ; Last Updated: 08/12/2014 20:25 EST ; Life Cycle Date: 08/12/2014 ; Life Cycle Status: Active ; Vocabulary: SNOMED CT COPD (chronic obstructive pulmonary disease) with emphysema (SNOMED CT :709819694 ) Name of Problem: COPD (chronic obstructive pulmonary disease) with emphysema ; Recorder: Sheryl Burnett RN; Confirmation: Confirmed ; Classification: Patient Stated ; Code: 466046979 ; Contributor System: PowerChart ; Last Updated: 08/12/2014 20:25 EST ; Life Cycle Date: 08/12/2014 ; Life Cycle Status: Active ; Vocabulary: SNOMED CT Diabetes (SNOMED CT :655108634 ) Name of Problem: Diabetes ; Recorder: Sheryl Burnett RN; Confirmation: Confirmed ; Classification: Patient Stated ; Code: 883798965 ; Contributor System: PowerChart ; Last Updated: 08/12/2014 20:24 EST ; Life Cycle Date: 08/12/2014 ; Life Cycle Status: Active ; Vocabulary: SNOMED CT Genital herpes (SNOMED CT :66116455 ) Name of Problem: Genital herpes ; Recorder: Sheryl Burnett RN; Confirmation: Confirmed ; Classification: Patient Stated ; Code: 89184209 ; Contributor System: PowerChart ; Last Updated: 08/12/2014 20:25 EST ; Life Cycle Date: 08/12/2014 ; Life Cycle Status: Active ; Vocabulary: SNOMED CT History of obstructive sleep apnea (IMO :37743115 ) Name of Problem: History of obstructive sleep apnea ; Recorder: SYSTEM, SYSTEM; Confirmation: Confirmed ; Classification: Medical ; Code: 86804655 ; Last Updated: 03/07/2018 10:59 EDT ; Life Cycle Date: 03/07/2018 ; Life Cycle Status: Active ; Vocabulary: IMO HTN (hypertension) (SNOMED CT :5298727855 ) Name of Problem: HTN (hypertension) ; Recorder: Sheryl Burnett RN; Confirmation: Confirmed ; Classification: Patient Stated ; Code: 1165249204 ; Contributor System: [employer] ; Last Updated: 08/12/2014 20:24 EST ; Life Cycle Date: 08/12/2014 ; Life Cycle Status: Active ; Vocabulary: SNOMED CT Hydrocephalus (SNOMED CT :702622414 ) Name of Problem: Hydrocephalus ; Recorder: hSeryl Burnett RN; Confirmation: Confirmed ; Classification: Patient Stated ; Code: 362334737 ; Contributor System: [employer] ; Last Updated: 08/12/2014 20:24 EST ; Life Cycle Date: 08/12/2014 ; Life Cycle Status: Active ; Vocabulary: SNOMED CT Hyperlipemia (SNOMED CT :43162278 ) Name of Problem: Hyperlipemia ; Recorder: Sheryl Burnett RN; Confirmation: Confirmed ; Classification: Patient Stated ; Code: 66191344 ; Contributor System: [employer] ; Last Updated: 08/12/2014 20:24 EST ; Life Cycle Date: 08/12/2014 ; Life Cycle Status: Active ; Vocabulary: SNOMED CT Myocardial infarction (SNOMED CT :08119782 ) Name of Problem: Myocardial infarction ; Recorder: Sheryl Burnett RN; Confirmation: Confirmed ; Classification: Patient Stated ; Code: 83114269 ; Contributor System: [employer] ; Last Updated: 08/12/2014 20:25 EST ; Life Cycle Date: 08/12/2014 ; Life Cycle Status: Active ; Vocabulary: SNOMED CT Diagnoses(Active) Back pain Date: 06/20/2019 ; Diagnosis Type: Reason For Visit ; Confirmation: Complaint of ; Clinical Dx: Back pain ; Classification: Medical ; Clinical Service: Emergency medicine ; Code: PNED ; Probability: 0 ; Diagnosis Code: [id number] ED Height and Weight Height Source : Stated Height Entry Format : [place] Height, Feet : 4 ft(Converted to: 122 cm, 48 Inch) Height, Inches : 11 Inch(Converted to: 0 ft 11 Inch, 27.94 cm) Clinical Height : 149.86 cm Weight Source, ED : Standing scale Weight Entry Format : [place] Weight, Pounds : 180 lb Clinical Dosing Weight : 81.82 kg Body Surface Area (BSA) : 1.76 m2 Body Mass Index : 36.4 kg/m2 (HI) [place] Body Weight (IBW) : 42.87 kg SHAWN MELENDEZ RN - 06/20/2019 13:26 EDT ED Influenza/Pneumoccocal Vaccine Influenza Immunization, Current Season : Yes Previous Vaccines from Immunization Schedule : No qualifying data available. SHAWN MELENDEZ RN - 06/20/2019 13:26 EDT Electronically signed by [facility], [facility] Conversion Art Critic Cerner at 12/10/2022 6:40 PM CDT documented in this encounter Plan of Treatment Not on file documented as of this encounter Visit Diagnoses Not on filedocumented in this encounter Care Teams Surgical Rn Relationship Specialty Start Date End Date Igor Meyers MD [address] [place], [place] [id number] PCP - General Family Medicine 11/23/22 08/22/23 Provider, Not In System, CHRISTIAN SALAZAR PCP - General 08/23/23 08/27/24 [facility] Connection, [facility], [place] [id number] PCP - General 08/28/24 11/06/24 [facility] Adan, [facility] [place], [place] [id number] PCP - General 11/07/24 02/22/25 [facility], Provider Not In The System, [place] [address] PCP - General 02/23/25 06/26/25 [facility] Connection, [facility] [place], [place] [id number] PCP - General 06/27/25 documented as of this encounter
--- OUTSIDE RECORDS SUMMARY | 2025-08-12 20:10 | XMS_ITS | Encounter Summary ---
Author Organization [employer] ([place], [place], [place], [place], [place]) Address [address] [place] [address] Care Team Providers Care Vacuum Metalizer Operator Name Role Phone Igor Meyers MD Primary Care Provider [phone] Provider, Not In System VENDOR MANAGEMENT SPECIALIST Primary Care Provid er Unavailable [facility] Connection, Find-A-Doc Primary Care Provider [facility], [facility]A-Doc Primary Care Provider [facility], Provider Not In The System Primary Care Provider Unavailable [facility] Connection, Find[facility]A-Doc Primary Care Provider Encounter Details Date Type Department Care Team (Late st Contact Info) Description 05/05/2019 Transcribed Document [facility] Family Medicine [facility] [place] [address] ProviderRufino MD [address] [place] [address] Social History Tobacco Use Types Packs/Day Years Used Date Smoking Tobacco: Never Assessed Comments Unknown Sex and Gender Information Value Date Recorded Sex Assigned at Not on file Legal Sex Female 1:33 PM CDT Gender Identity Not on file Sexual Orientation Not on file documented as of this encounter Miscellaneous Notes * Cerner Conversion Note - Rufino ProviderMD - 05/05/2019 7:35 AM CDT ED Event Note Entered On: 05/05/2019 7:37 EDT Performed On: 05/05/2019 7:35 EDT by LAURE HEBERT RN ED Event Note ED Event Date/Time : 05/05/2019 7:35 EDT ED Event Location : Assigned room ED Description of Event : pt being discharged and states she doesn't have a ride back to [place], pt also states she's diabetic, gave pt crackers, p. butter and drink, called Case Mgmt for assist with ride, not in yet this morning. LAURE HEBERT RN - 05/05/2019 7:35 EDT Electronically signed by [facility] Conversion Nascar Driver Cerner at 12/10/2022 6:36 PM CDT documented in this encounter Plan of Treatment Not on file documented as of this encounter Visit Diagnoses Not on filedocumented in this encounter Care Teams Vacuum Metalizer Operator Relationship Specialty Start Date End Date Igor Meyers MD [address] [place] [id number] PCP - General Family Medicine 11/23/22 08/22/23 Provider, Not In System, CHRISTIAN SALAZAR PCP - General 08/23/23 08/27/24 [facility] Connection, [facility]Doc [facility] [place] [address] PCP - General 08/28/24 11/06/24 [facility] Connection, [facility]Doc [facility] [place] [address] PCP - General 11/07/24 02/22/25 [facility], Provider Not In The System, [place] [address] PCP - General 02/23/25 06/26/25 [facility] Connection, [facility] [place] [address] PCP - General 06/27/25 documented as of this encounter
--- OUTSIDE RECORDS SUMMARY | 2025-08-12 20:10 | XMS_ITS | Encounter Summary ---
Author Organization [employer] ([place], [place], [place], [place], [place]) Address [address] [place] [address] Care Team Providers Care Viticulturist Name Role Phone Igor Meyers MD Primary Care Provider [phone] Provider, Not In System FIELD ARTILLERY TARGETING TECHNICIAN Primary Care Provid er Unavailable [facility] Connection, Find-A-Doc Primary Care Provider [facility], [facility]Doc Primary Care Provider [facility], Provider Not In The System Primary Care Provider Unavailable [facility] Connection, Find-A-Doc Primary Care Provider Encounter Details Date Type Department Care Team (Late st Contact Info) Description 11/08/2018 Transcribed Document [facility] Family Medicine [facility] [place] [address] ProviderRufino MD [address] [place] [address] Social History Tobacco Use Types [...] ProviderMD - 11/08/2018 2:10 PM CDT ED Triage Entered On: 11/08/2018 14:23 EDT Performed On: 11/08/2018 14:16 EDT by SHAWN MELENDEZ RN ED Triage Across the Room Triage Date/Time : 11/08/2018 14:16 EDT Chief Complaint : PT c/o CP that started this AM as midsternal and is now radiating down left arm, pain is rated 8/10, reports nausea and SOA as well, resp even and unlabored SHAWN MELENDEZ RN - 11/08/2018 14:16 EDT DCP GENERIC CODE Tracking Acuity : 2 - Emergent Tracking Group : [facility] SHAWN MELENDEZ RN - 11/08/2018 14:16 EDT Mode of Arrival : Stretcher Transported to ED by : Ambulance/ALS EMS Service : [facility] To Room Via : Stretcher Accompanied By : Unaccompanied ED Vital Signs : Document Height & Weight : Document ED Allergies : Document ED Reason for Visit : Document Tetanus Immunization : Less than 5 years SHAWN MELENDEZ RN - 11/08/2018 14:16 EDT Infectious Disease History Infectious Disease History : Chicken pox/Shingles, Herpes, Measles, Mumps Fever/Chills Last 48 Hours : No Travel To Regions with Travel Advisories : No Travel Outside [place] Within Last 30 Days : No Contact With Traveler to Advisory Region : No Tuberculosis Symptoms : None SHAWN MELENDEZ RN - 11/08/2018 14:16 EDT Vital Signs ED Temperature Source : Oral Temperature Mode : Fahrenheit Temperature, Fahrenheit : 98.0 Deg F Clinical Temperature, C : 36.7 Deg C Peripheral Pulse Rate : 75 bpm Respiratory Rate : 18 Breaths/Min Systolic Blood Pressure : 115 mmHg Diastolic Blood Pressure : 77 mmHg Oxygen Saturation : 97 % SHAWN MELENDEZ RN - 11/08/2018 14:16 EDT Allergy (As Of: 11/08/2018 14:23:58 EDT) Allergies (Active) sulfADIAZINE Estimated Onset Date: Unspecified ; Reactions: itching ; Created By: Ella Phelan Rn; Reaction Status: Active ; Category: Drug ; Substance: sulfADIAZINE ; Type: Allergy ; Severity: Severe ; Updated By: Ella Phelan Rn; Reviewed Date: 11/08/2018 14:19 EDT sulfonamides Estimated Onset Date: Unspecified ; Reactions: Itching, Rash ; Created By: Diana Michel, Pharmacist-Resident; Reaction Status: Active ; Category: Drug ; Substance: sulfonamides ; Type: Allergy ; Severity: Moderate ; Updated By: Diana Michel, Pharmacist-Resident; Source: Patient ; Reviewed Date: 11/08/2018 14:19 EDT Diagnosis Control ED (As Of: 11/08/2018 14:23:58 EDT) Problems(Active) Apnea, sleep (SNOMED CT :277674154 ) Name of Problem: Apnea, sleep ; Recorder: Sheryl Burnett RN; Confirmation: Confirmed ; Classification: Patient Stated ; Code: 119845942 ; Contributor System: [employer] ; Last Updated: 08/12/2014 20:25 EST ; Life Cycle Date: 08/12/2014 ; Life Cycle Status: Active ; Vocabulary: SNOMED CT Chronic CHF (SNOMED CT :550187140 ) Name of Problem: Chronic CHF ; Recorder: Sheryl Burnett RN; Confirmation: Confirmed ; Classification: Patient Stated ; Code: 731934023 ; Contributor System: PowerChart ; Last Updated: 08/12/2014 20:25 EST ; Life Cycle Date: 08/12/2014 ; Life Cycle Status: Active ; Vocabulary: SNOMED CT COPD (chronic obstructive pulmonary disease) with emphysema (SNOMED CT :780459141 ) Name of Problem: COPD (chronic obstructive pulmonary disease) with emphysema ; Recorder: Sheryl Burnett RN; Confirmation: Confirmed ; Classification: Patient Stated ; Code: 344776885 ; Contributor System: PowerChart ; Last Updated: 08/12/2014 20:25 EST ; Life Cycle Date: 08/12/2014 ; Life Cycle Status: Active ; Vocabulary: SNOMED CT Diabetes (SNOMED CT :077388505 ) Name of Problem: Diabetes ; Recorder: Sheryl Burnett RN; Confirmation: Confirmed ; Classification: Patient Stated ; Code: 392958591 ; Contributor System: PowerChart ; Last Updated: 08/12/2014 20:24 EST ; Life Cycle Date: 08/12/2014 ; Life Cycle Status: Active ; Vocabulary: SNOMED CT Genital herpes (SNOMED CT :94136436 ) Name of Problem: Genital herpes ; Recorder: Sheryl Burnett RN; Confirmation: Confirmed ; Classification: Patient Stated ; Code: 48047711 ; Contributor System: PowerChart ; Last Updated: 08/12/2014 20:25 EST ; Life Cycle Date: 08/12/2014 ; Life Cycle Status: Active ; Vocabulary: SNOMED CT History of obstructive sleep apnea (IMO :88449577 ) Name of Problem: History of obstructive sleep apnea ; Recorder: SYSTEM, SYSTEM; Confirmation: Confirmed ; Classification: Medical ; Code: 68400053 ; Last Updated: 03/07/2018 10:59 EDT ; Life Cycle Date: 03/07/2018 ; Life Cycle Status: Active ; Vocabulary: IMO HTN (hypertension) (SNOMED CT :4672904675 ) Name of Problem: HTN (hypertension) ; Recorder: Sheryl Burnett RN; Confirmation: Confirmed ; Classification: Patient Stated ; Code: 6592360575 ; Contributor System: NeulChart ; Last Updated: 08/12/2014 20:24 EST ; Life Cycle Date: 08/12/2014 ; Life Cycle Status: Active ; Vocabulary: SNOMED CT Hydrocephalus (SNOMED CT :057349074 ) Name of Problem: Hydrocephalus ; Recorder: Sheryl Burnett RN; Confirmation: Confirmed ; Classification: Patient Stated ; Code: 134737337 ; Contributor System: [employer] ; Last Updated: 08/12/2014 20:24 EST ; Life Cycle Date: 08/12/2014 ; Life Cycle Status: Active ; Vocabulary: SNOMED CT Hyperlipemia (SNOMED CT :58834238 ) Name of Problem: Hyperlipemia ; Recorder: Sheryl Burnett RN; Confirmation: Confirmed ; Classification: Patient Stated ; Code: 64286686 ; Contributor System: PowerChart ; Last Updated: 08/12/2014 20:24 EST ; Life Cycle Date: 08/12/2014 ; Life Cycle Status: Active ; Vocabulary: SNOMED CT Myocardial infarction (SNOMED CT :78058732 ) Name of Problem: Myocardial infarction ; Recorder: Sheryl Burnett RN; Confirmation: Confirmed ; Classification: Patient Stated ; Code: 17732644 ; Contributor System: PowerChart ; Last Updated: 08/12/2014 20:25 EST ; Life Cycle Date: 08/12/2014 ; Life Cycle Status: Active ; Vocabulary: SNOMED CT Diagnoses(Active) Chest pain Date: 11/08/2018 ; Diagnosis Type: Reason For Visit ; Confirmation: Complaint of ; Clinical Dx: Chest pain ; Classification: Medical ; Clinical Service: Emergency medicine ; Code: PNED ; Probability: 0 ; Diagnosis Code: [id number] ED Height and Weight Height Source : Stated Height Entry Format : [place] Height, Feet : 4 ft(Converted to: 122 cm, 48 Inch) Height, Inches : 11 Inch(Converted to: 0 ft 11 Inch, 27.94 cm) Clinical Height : 149.86 cm Weight Source, ED : Standing scale Weight Entry Format : [place] Weight, Pounds : 202 lb Clinical Dosing Weight : 91.82 kg Body Surface Area (BSA) : 1.85 m2 Body Mass Index : 40.9 kg/m2 (>HHI) [place] Body Weight (IBW) : 42.87 kg SHAWN MELENDEZ RN - 11/08/2018 14:16 EDT ED Influenza/Pneumoccocal Vaccine Influenza Immunization, Current Season : Yes Pneumonia Immunization Received : Yes Previous Vaccines from Immunization Schedule : No qualifying data available. SHAWN MELENDEZ RN - 11/08/2018 14:16 EDT Electronically signed by [facility] Conversion Potato Spotter Cerner at 12/10/2022 6:38 PM CDT documented in this encounter Plan of Treatment Not on file documented as of this encounter Visit Diagnoses Not on filedocumented in this encounter Care Teams Viticulturist Relationship Specialty Start Date End Date Igor Meyers MD [address] [place] [address] PCP - General Family Medicine 11/23/22 08/22/23 Provider, Not In System, CHRISTIAN SALAZAR PCP - General 08/23/23 08/27/24 [facility] Connection, Find[facility]Doc [facility] Find-a-Doc [place], [place] [id number] PCP - General 08/28/24 11/06/24 [facility] Connection, [facility] Find-a-Doc [place], [place] [id number] PCP - General 11/07/24 02/22/25 [facility], Provider Not In The System, [place] [address] PCP - General 02/23/25 06/26/25 [facility] Connection, [facility]Doc [facility]-a-Doc [place], [place] [id number] PCP - General 06/27/25 documented as of this encounter
--- OUTSIDE RECORDS SUMMARY | 2025-08-12 20:10 | XMS_ITS | Encounter Summary ---
Author Organization [employer] ([place], [place], [place], [place], [place]) Address [address] [place] [address] Care Team Providers Care Supervisor Die Casting Name Role Phone Igor Meyers MD Primary Care Provider [phone] Provider, Not In System RN COMPLEX CARE Primary Care Provid er Unavailable [facility], [facility]A-Doc Primary Care Provider [facility], [facility] Primary Care Provider [facility], Provider Not In The System Primary Care Provider Unavailable [facility], [facility]Doc Primary Care Provider Encounter Details Date Type Department Care Team (Late st Contact Info) Description 11/08/2018 Transcribed Document [facility] [place] Family Medicine [facility] [place] [address] ProviderRufino MD [address] [place] [address] Social History Tobacco Use Types [...] Historical ProviderMD - 11/08/2018 6:06 PM CDT [facility] [address] [place] [address] Patient Information Name: ROBERTO RANDLE Age: 58 Years Date of : 1960 Arrival Time: 11/08/2018 14:10:00 Diagnosis Atypical chest pain Primary Care Physician: FELIPE FERRO [facility] Provider Information Primary Provider: DEE HERNANDEZ Secondary Provider: ROBERTO RANDLE has been given the following list of patient education materials, prescriptions and follow-up instructions: Follow-up Instructions: With: Address: When: MARIELA KEARNS [address] [place], [place] [id number] Business (1) Within 2 to 3 days [...] markedly worse. With: Address: When: FELIPE FERRO [address] [place] [phone] Business (1) Within 2 to 3 days Patient Education Materials: Nonspecific Chest Pain Chest pain can be [...] around your heart (pericarditis) or lung (pleuritis orpleurisy). ??? A blood clot in your lung. [...] flows through your heart. ??? Transesophageal echocardiogram (HUSSEIN).?This is a more advanced imaging test that [...] you start to feel better. ??? Take kbrt-ibc-tiwgjls and prescription medicines only as told by your health care provider. Lifestyle ??? Do notuse any products that contain nicotine or tobacco, such as cigarettes and e-cigarettes. If you need help quitting, ask your health care provider. ??? Do notdrink alcohol. ??? Make lifestyle changes as directed [...] 05/23/2006 Document Revised: 05/07/2017 Document Reviewed: 05/07/2017 [employer] Patient Education ? 2017 [employer] Allergies: sulfADIAZINE; sulfonamides Medication Information: Laboratory or Other Results This Visit (last charted value for your 11/08/2018 visit) Hematology 11/08/18 15:26:00 WBC: 11.4 K/uL -- Normal range between ( 3.9 and 10.0 ) RBC: 4.87 Million/uL -- Normal range between ( 3.93 and 5.22 ) Hct: 40.7 % -- Normal range between ( 34.1 and 44.9 ) Hgb: 13.6 Gram/dL -- Normal range between ( 11.2 and 15.7 ) Platelet Count: 206 K/uL -- Normal range between ( 163 and 369 ) MCH: 27.9 pg -- Normal range between ( 25.6 and 32.2 ) MCHC: 33.4 Gram/dL -- Normal range between ( 32.3 and 36.5 ) MCV: 83.6 fL -- Normal range between ( 79.0 and 94.8 ) Slide Review: No Eos %: 2.0 % -- Normal range between ( 1.0 and 7.0 ) Riley #: 0.64 K/uL -- Normal range between ( 0.24 and 0.82 ) Eos #: 0.23 K/uL -- Normal range between ( 0.04 and 0.54 ) Riley %: 5.6 % -- Normal range between ( 4.7 and 12.5 ) Baso %: 0.5 % -- Normal range between ( 0.0 and 1.0 ) Baso #: 0.06 K/uL -- Normal range between ( 0.01 and 0.08 ) RDW: 13.9 % -- Normal range between ( 11.6 and 14.4 ) Neut %: 60.1 % -- Normal range between ( 34.0 and 71.0 ) Neut #: 6.85 K/uL -- Normal range between ( 1.56 and 6.13 ) Lymph %: 31.2 % -- Normal range between ( 19.3 and 53.0 ) Lymph #: 3.56 K/uL -- Normal range between ( 1.18 and 3.74 ) MPV: 10.6 fL -- Normal range between ( 9.4 and 12.4 ) IG#: 0 x10(3)/uL IG%: 1 % -- Normal range between ( 0 and 1 ) General Chemistry 11/08/18 14:25:00 Creatinine Level: 0.45 mg/dL -- Normal range between ( 0.55 and 1.02 ) Sodium Level: 138 mmol/L -- Normal range between ( 136 and 146 ) Potassium Level: 4.1 mmol/L -- Normal range between ( 3.5 [...] between ( 1.1 and 2.5 ) ALT: 30 Units/Liter -- Normal range between ( 12 and 78 ) AST: 27 Units/Liter -- Normal range between ( 5 and 37 ) Globulin: 3.2 Gram/dL -- Normal range between ( 1.5 and 4.5 ) Alk Phos: 94 Units/Liter -- Normal range between ( 27 and 136 ) Bun/Creatinine: 24.4 -- Normal range between ( 8.0 and 20.0 ) Calcium Level: 8.6 mg/dL -- Normal range between ( 8.5 and 10.1 ) eGFR : >60 mL/min/1.73m2 eGFR NonAfrican: >60 mL/min/1.73m2 Glucose Level: 120 mg/dL -- Normal range between ( 74 and 106 ) Blood Urea Nitrogen: 11 mg/dL -- Normal range between ( 7 and 22 ) Protein Total: 6.7 Gram/dL -- Normal range between ( 6.4 and 8.2 ) Albumin Level: 3.5 Gram/dL -- Normal range between ( 3.4 and 5.0 ) Cardiac Specific Markers 11/08/18 15:26:00 ProBNP: 35 pg/mL -- Normal range between ( 0 and 125 ) 11/08/18 14:25:00 Troponin I Ultra: <0.015 ng/mL -- Normal range between ( 0.015 and 0.045 ) Diagnostic Radiology 11/08/18 14:38:06 CR Chest 1 Vw Portable: CR Chest 1 Vw Portable Medication Comment: Procedures: Laboratory Orders Name Status AutoDiff Completed CBCD Completed CMP Completed PROBNP Completed TROPIULT Completed Radiology Orders Name Status CR Chest 1 Vw Portable Completed CTA Chest PE Protocol Ordered Cardiology Orders Name Status ECG Ordered ECG Ordered This statement is to verify that ROBERTO RANDLE was seen at [facility] Emergency Department on ,11/08/2018 18:06:27. This is not a work excuse, if a work excuse was needed it will be in addition to this statement as a separate form. IMPORTANT: The examination and treatment you have received [...] that requires the expertise of a specialist. KEEP IN MIND THAT THE SPECIALIST HAS HIS/HER OWN OFFICE POLICIES WHICH MAY REQUIRE PROPER INSURANCE OR PAYMENT UP FRONT BEFORE THE SPECIALIST WILL SEE YOU. It is your responsibility to call the specialist physician to make an appointment. We do not have the ability to identify specialists/physicians that work with specific insurance companies. [...] necessary to obtain coverage for claims submitted. If you had special tests, such as EKG???s or X-rays, the interpretation of your tests given to you by the Emergency Dept. Physician is a preliminary report. Some fractures and illnesses fail to show up on preliminary tests. We will review them again within 24-48 hours. We will call you if there are any new suggestions. If your symptoms continue notify your physician. After you leave, you should follow the instructions below. In all events, you may obtain a copy of your Emergency Department visit from Medical Records. Please call to be directed to this department. We will bill your insurance; however, you are responsible today for any co-pay amounts. You will receive a separate bill for any services you may have received including: emergency, radiology, or pathology physicians. Please be sure we have an accurate contact phone number and address, should we need to call you for any reason. CIGARETTE SMOKING: The facts are clear; cigarette smoking will shorten your life. Smoking can cause many illnesses along the way. As a healthcare provider, [facility] recommends that you stop smoking. Assistance with quitting is available by contacting 7-459-XQLQ-NOW. This is a free resource providing counseling, support, and referral. Or you may contact your personal physician. As part of your treatment plan, [...] cramping, rapid heartbeat, difficulty sleeping, and nervousness. The home medications listed are only as accurate as the information you provided. Please continue taking all of your medications prescribed by your Primary Care Provider unless specifically told to change or discontinue the medication. Please direct any questions regarding your home medications to your Primary Care Provider. YOU ARE THE MOST IMPORTANT FACTOR IN YOUR RECOVERY. ?? Follow your instructions carefully ?? Take your medicines as prescribed ?? Most important, see a provider as discussed. If you do not have a provider, we can provide a list of clinics Confidential This message and accompanying documents are covered by [employer] Privacy Act 18 U.S.C. ???Sections 1957-7023,?? and contain information intended for the specified individual(s) only. This information is confidential. If you are not the intended recipient or an agent responsible for delivering it to the intended recipient, you are hereby notified that you have received the document in error and that any review, dissemination, copying, or the taking of any action based on the contents of this information is strictly prohibited. If you have received this communication in error, please notify us immediately by email, and delete the original message. 4 WAYS TO GET AHEAD OF SEPSIS SEPSIS is a MEDICAL EMERGENCY. Time matters! Infections put you and your family at risk for a life-threatening condition called sepsis. Sepsis is the body???s extreme response to an infection. It is life-threatening, and without timely treatment, sepsis can rapidly lead to tissue damage, organ failure, and . Sepsis happens when an infection you already have???in your skin, lungs, urinary tract or somewhere else???triggers a chain reaction throughout your body. 1 [...] sepsis or if you have an infection that???s not getting better or is getting worse. To learn more about sepsis and how to prevent infections, visit www.cdc.gov/sepsis. STROKE is an EMERGENCY [employer] ACT F.A.S.T! FACE ?? Facial droop ?? Uneven smile ARM ?? Arm numbness ?? Arm weakness SPEECH ?? Slurred speech ?? Difficulty speaking or understanding TIME ?? Call 911 and get to the hospital immediately Have the ambulance go to the nearest stroke center. STROKE Risk Factors High blood pressure High cholesterol Heart Disease Diabetes Smoking Heavy alcohol use Physical inactivity and obesity Atrial Fibrillation (irregular heartbeat) Family history of stroke Acknowledgment I hereby acknowledge receipt of these instructions and information above. I understand that I have received Emergency Treatment only which is not a substitute for complete medical care and acknowledge that all of my medical problems may not be known, identified, or treated prior to my release. I UNDERSTAND THE NEED TO ARRANGE FOLLOW-UP CARE WITH THE PHYSICIAN INDICATED. I UNDERSTAND THAT I SHOULD CONTACT MY PHYSICIAN IMMEDIATELY OR RETURN TO THE EMERGENCY DEPARTMENT IF MY CONDITION WORSENS, FAILS TO IMPROVE, OR NEW SYMPTOMS APPEAR. Vital Signs B/P PULSE RESP. RATE TEMPERATURE PULSE OX Signature of Emergency Provider Date / Time Signature of Emergency Nurse Date / Time Reminder: Be sure to sign up for the My [facility] patient portal, which gives you 19/03 access to your medical information ??? including these discharge instructions ??? using your computer, smartphone, or tablet. Just go to [employer] to get started. Questions? Call . Acknowledgment I hereby acknowledge receipt of these instructions and information above. I understand that I have received Emergency Treatment only which is not a substitute for complete medical care and acknowledge that all of my medical problems may not be known, identified, or treated prior to my release. I UNDERSTAND THE NEED TO ARRANGE FOLLOW-UP CARE WITH THE PHYSICIAN INDICATED. I UNDERSTAND THAT I SHOULD CONTACT MY PHYSICIAN IMMEDIATELY OR RETURN TO THE EMERGENCY DEPARTMENT IF MY CONDITION WORSENS, FAILS TO IMPROVE, OR NEW SYMPTOMS APPEAR. Signature of Patient / Responsible Person Date / Time Please provide a telephone number where you can be reached. The best time to call is between: It is permissible to leave a message if no answer: Yes____ No____ Nurse Providing Instructions: Emergency Physician: documented in this encounter Plan of Treatment Not on file documented as of this encounter Visit Diagnoses Not on filedocumented in this encounter Care Teams Supervisor Die Casting Relationship Specialty Start Date End Date Igor Meyers MD [address] [place] [address] [place] [address] PCP - General Family Medicine 11/23/22 08/22/23 Provider, Not In System, CHRISTIAN SALAZAR PCP - General 08/23/23 08/27/24 [facility], [facility] [place] [address] PCP - General 08/28/24 11/06/24 [facility], [facility] [place] [address] PCP - General 11/07/24 02/22/25 [facility], Provider Not In The System, [address] [place] [address] PCP - General 02/23/25 06/26/25 [facility], [facility] [place] [address] PCP - General 06/27/25 documented as of this encounter
--- OUTSIDE RECORDS SUMMARY | 2025-08-12 20:10 | XMS_ITS | Encounter Summary ---
Author Organization [employer] ([place], [place], [place], [place], [place]) Address [address] [place] [address] Care Team Providers Care Ship Runner Name Role Phone Igor Meyers MD Primary Care Provider [phone] Provider, Not In System FINE ARTS CHAIR Primary Care Provid er Unavailable [facility], [facility]Doc Primary Care Provider [facility], [facility] Primary Care Provider [facility], Provider Not In The System Primary Care Provider Unavailable [facility], [facility]Doc Primary Care Provider Encounter Details Date Type Department Care Team (Late st Contact Info) Description 11/08/2018 Transcribed Document [facility] [place] Family Medicine [address] [place] [address] ProviderRufino MD [address] [place] [address] Social History Tobacco Use Types Packs/Day Years Used Date Smoking Tobacco: Never Assessed Comments Unknown Sex and Gender Information Value Date Recorded Sex Assigned at Not on file Legal Sex Female 1:33 PM CDT Gender Identity Not on file Sexual Orientation Not on file documented as of this encounter Miscellaneous Notes * [employer]ner Conversion Note - Rufino ProviderMD - 11/08/2018 6:05 PM CDT ED Discharge Entered On: 11/08/2018 18:06 EDT Performed On: 11/08/2018 18:05 EDT by SHAWN MELENDEZ financial legal assistant Process Patient Disposition : Discharge Personal Belongings With Patient : Yes Patient Education Completed : Yes Teaching Evaluation : Verbalizes understanding Link to Valuables and Belongings form : No IV Discontinued : Yes Nursing Documentation Completed : Yes SHAWN MELENDEZ RN - 11/08/2018 18:05 EDT ED Discharge Discharge To : Home with ambulatory/outpatient follow-up Mode Of Departure : Ambulatory, Private vehicle Accompanied By : Unaccompanied Discharge Instructions Reviewed With, Opportunity For Questions Given : Patient Prescriptions Given to Patient : No SHAWN MELENDEZ RN - 11/08/2018 18:05 EDT Electronically signed by [facility] Conversion Watch Inspector Cerner at 12/10/2022 6:26 PM CDT documented in this encounter Plan of Treatment Not on file documented as of this encounter Visit Diagnoses Not on filedocumented in this encounter Care Teams Ship Runner Relationship Specialty Start Date End Date Igor Meyers MD [address] [place] [address] PCP - General Family Medicine 11/23/22 08/22/23 Provider, Not In System, CHRISTIAN SALAZAR PCP - General 08/23/23 08/27/24 [facility], [facility], [place] [id number] PCP - General 08/28/24 11/06/24 [facility], [facility] Find-a-Doc [place], [place] [id number] PCP - General 11/07/24 02/22/25 [facility], Provider Not In The System[place] [address] PCP - General 02/23/25 06/26/25 [facility], [facility] Find-a-Doc [place], [place] [id number] PCP - General 06/27/25 documented as of this encounter
--- OUTSIDE RECORDS SUMMARY | 2025-08-12 20:10 | XMS_ITS | Encounter Summary ---
Author Organization [employer] ([place], [place], [place], [place], [place]) Address [address] [place] [address] Care Team Providers Care Spike Machine Heater Name Role Phone Igor Meyers MD Primary Care Provider [phone] Provider, Not In System BAKING ASSISTANT Primary Care Provid er Unavailable [facility], [facility]Doc Primary Care Provider [facility], [facility]Doc Primary Care Provider [facility], Provider Not In The System Primary Care Provider Unavailable [facility], [facility]Doc Primary Care Provider Encounter Details Date Type Department Care Team (Late st Contact Info) Description 11/08/2018 Transcribed Document [facility] [place] Family [place] [facility] [place] [address] ProviderRufino MD [address] [place] [address] Social History Tobacco Use Types Packs/Day Years Used Date Smoking Tobacco: Never Assessed Comments Unknown Sex and Gender Information Value Date Recorded Sex Assigned at Not on file Legal Sex Female 1:33 PM CDT Gender Identity Not on file Sexual Orientation Not on file documented as of this encounter Miscellaneous Notes * Cerner Conversion Note - Rufion ProviderMD - 11/08/2018 6:04 PM CDT ED Discharge Vital Signs Entered On: 11/08/2018 18:05 EDT Performed On: 11/08/2018 18:04 EDT by SHAWN MELENDEZ MANAGER STYLIST Discharge Vital Signs Peripheral Pulse Rate : 75 bpm Respiratory Rate : 18 Breaths/Min Systolic Blood Pressure : 116 mmHg Diastolic Blood Pressure : 60 mmHg Oxygen Saturation : 98 % SHAWN MELENDEZ RN - 11/08/2018 18:04 EDT Electronically signed by [facility], [facility] Conversion Solutions Engineer Cerner at 12/10/2022 6:33 PM CDT documented in this encounter Plan of Treatment Not on file documented as of this encounter Visit Diagnoses Not on filedocumented in this encounter Care Teams Spike Machine Heater Relationship Specialty Start Date End Date Igor Meyers MD [address] [place] [address] PCP - General Family Medicine 11/23/22 08/22/23 Provider, Not In System, CHRISTIAN SALAZAR PCP - General 08/23/23 08/27/24 [facility], [facility]Doc [facility] Find-a-Doc [place], [place] [id number] PCP - General 08/28/24 11/06/24 [facility], [facility] [place] [address] PCP - General 11/07/24 02/22/25 [facility], Provider Not In The System, [place] [address] PCP - General 02/23/25 06/26/25 [facility], [facility]Doc [facility] Find-a-Doc [place], [place] [id number] PCP - General 06/27/25 documented as of this encounter
--- OUTSIDE RECORDS SUMMARY | 2025-08-12 20:10 | XMS_ITS | Encounter Summary ---
Author Organization [employer] ([place], [place], [place], [place], [place]) Address [address] [place] [address] Care Team Providers Care Associate Director Regulatory Affairs Name Role Phone Igor Meyers MD Primary Care Provider [phone] Provider, Not In System VIOLIN MECHANIC Primary Care Provid er Unavailable [facility] Family Medicine [address] [place] [address] ProviderRufino MD [address] [place] [address] Social History Tobacco Use Types Packs/Day Years Used Date Smoking Tobacco: Never Assessed Comments Unknown Sex and Gender Information Value Date Recorded Sex Assigned at Not on file Legal Sex Female 1:33 PM CDT Gender Identity Not on file Sexual Orientation Not on file documented as of this encounter Miscellaneous Notes * Cerner Conversion Note - Rufino ProviderMD - 11/08/2018 3:15 PM CDT ED Education Entered On: 11/08/2018 18:04 EDT Performed On: 11/08/2018 18:04 EDT by SHAWN MELENDEZ, RN Teaching/Learning Assessment Barriers To Learning : None evident Readiness to Learn : Denies need for education SHAWN MELENDEZ, RN - 11/08/2018 18:04 EDT Electronically signed by [facility] Conversion Filler Shredder Machine Cerner at 12/10/2022 6:39 PM CDT documented in this encounter Plan of Treatment Not on file documented as of this encounter Visit Diagnoses Not on filedocumented in this encounter Care Teams Associate Director Regulatory Affairs Relationship Specialty Start Date End Date Igor Meyers MD [address] [place] [address] PCP - General Family Medicine 11/23/22 08/22/23 Provider, Not In System, CHRISTIAN SALAZAR PCP - General 08/23/23 08/27/24 [facility] Connection, [facility]Doc [facility] [place] [address] PCP - General 08/28/24 11/06/24 [facility], [facility] [place] [address] PCP - General 11/07/24 02/22/25 [facility], Provider Not In The System, [place] [address] PCP - General 02/23/25 06/26/25 [facility], [facility] [place] [address] PCP - General 06/27/25 documented as of this encounter
--- OUTSIDE RECORDS SUMMARY | 2025-08-12 20:10 | XMS_ITS | Encounter Summary ---
Author Organization [employer] ([place], [place], [place], [place], [place]) Address [address] [place] [address] Care Team Providers Care Map Maker Name Role Phone Igor Meyers MD Primary Care Provider [phone] Provider, Not In System DYE PADDER OPERATOR Primary Care Provid er Unavailable [facility] Connection, Find-A-Doc Primary Care Provider [facility] Connection, Find-A-Doc Primary Care Provider [facility], Provider Not In The System Primary Care Provider Unavailable [facility] Connection, Find-A-Doc Primary Care Provider Encounter Details Date Type Department Care Team (Late st Contact Info) Description 06/20/2020 Transcribed Document [facility] Family Medicine [facility] [place] [address] ProviderRufino MD [address] [place] [address] Social History Tobacco Use Types Packs/Day Years Used Date Smoking Tobacco: Never Assessed Comments Unknown Sex and Gender Information Value Date Recorded Sex Assigned at Not on file Legal Sex Female 1:33 PM CDT Gender Identity Not on file Sexual Orientation Not on file documented as of this encounter Miscellaneous Notes * Cerner Conversion Note - Rufino ProviderMD - 06/20/2020 7:29 AM CDT ED Discharge Entered On: 06/20/2020 7:30 EDT Performed On: 06/20/2020 7:29 EDT by Libra Michel RN Discharge Process Patient Disposition : Admit/Observe Personal Belongings With Patient : Yes Patient Education Completed : Yes Teaching Evaluation : Verbalizes understanding IV Discontinued : Yes Nursing Documentation Completed : Yes Libra Michel RN - 06/20/2020 7:29 EDT ED Discharge Discharge To : Home with ambulatory/outpatient follow-up Mode Of Departure : Public transportation Accompanied By : Unaccompanied Prescriptions Given to Patient : No Medications Given to Patient : No Libra Michel RN - 06/20/2020 7:29 EDT Electronically signed by [facility] Conversion Airline Hostess Cerner at 12/10/2022 6:43 PM CDT documented in this encounter Plan of Treatment Not on file documented as of this encounter Visit Diagnoses Not on filedocumented in this encounter Care Teams Map Maker Relationship Specialty Start Date End Date Igor Meyers MD [address] [place], [place] [id number] PCP - General Family Medicine 11/23/22 08/22/23 Provider, Not In System, CHRISTIAN SALAZAR PCP - General 08/23/23 08/27/24 [facility] Connection, Find-A-Doc [facility] Find-a-Doc [place], [place] [id number] PCP - General 08/28/24 11/06/24 [facility] Connection, Find-A-Doc [facility] [place] [address] PCP - General 11/07/24 02/22/25 [facility], Provider Not In The System, [place] [address] PCP - General 02/23/25 06/26/25 [facility] Connection, Find-A-Doc [facility] Find-a-Doc [place], [place] [id number] PCP - General 06/27/25 documented as of this encounter
--- OUTSIDE RECORDS SUMMARY | 2025-08-12 20:10 | XMS_ITS | Encounter Summary ---
Author Organization [employer] ([place], [place], [place], [place], [place]) Address [address] [place] [address] Care Team Providers Care Access Consultant Name Role Phone Igor Meyers MD Primary Care Provider [phone] Provider, Not In System AWNING ASSEMBLER Primary Care Provid er Unavailable [facility] Connection, Find-A-Doc Primary Care Provider [facility], Find-A-Doc Primary Care Provider [facility], Provider Not In The System Primary Care Provider Unavailable [facility] Connection, Find-A-Doc Primary Care Provider Encounter Details Date Type Department Care Team (Late st Contact Info) Description 05/08/2020 Transcribed Document [facility] [place] [address] [place] [address] ProviderRufino MD [address] [place] [address] Social History Tobacco Use Types Packs/Day Years Used Date Smoking Tobacco: Never Assessed Comments Unknown Sex and Gender Information Value Date Recorded Sex Assigned at Not on file Legal Sex Female 1:33 PM CDT Gender Identity Not on file Sexual Orientation Not on file documented as of this encounter Miscellaneous Notes * Cerner Conversion Note - Historical ProviderMD - 05/08/2020 6:55 PM CDT ED Discharge Entered On: 05/08/2020 19:12 EDT Performed On: 05/08/2020 18:55 EDT by YAZAN ELI RN Discharge Process Patient Disposition : Discharge Personal Belongings With Patient : Yes Patient Education Completed : Yes Teaching Evaluation : Verbalizes understanding Education Comment : denies questions pt p/w/d resp even and unlabroed IV Discontinued : Not applicable Nursing Documentation Completed : Yes YAZAN ELI RN - 05/08/2020 19:11 EDT ED Discharge Discharge To : Home without planned follow-up Mode Of Departure : Ambulatory Accompanied By : Unaccompanied Discharge Instructions Reviewed With, Opportunity For Questions Given : Patient Prescriptions Given to Patient : Yes Number of Prescriptions Given : 1 YAZAN ELI RN - 05/08/2020 19:11 EDT Electronically signed by [facility] Conversion Cleaning Handyman Cerner at 12/10/2022 6:41 PM CDT documented in this encounter Plan of Treatment Not on file documented as of this encounter Visit Diagnoses Not on filedocumented in this encounter Care Teams Access Consultant Relationship Specialty Start Date End Date Igor Meyers MD [address] [place] [address] PCP - General Family Medicine 11/23/22 08/22/23 Provider, Not In System, CHRISTIAN SALAZAR PCP - General 08/23/23 08/27/24 [facility] Connection, Find-A-Doc [facility] [place], [place] [id number] PCP - General 08/28/24 11/06/24 [facility], Find-A-Doc [facility] Find-a-Doc [place], [place] [id number] PCP - General 11/07/24 02/22/25 [facility], Provider Not In The System, [place] [address] PCP - General 02/23/25 06/26/25 [facility] Connection, Find-A-Doc [facility] Find-a-Doc [place], [place] [id number] PCP - General 06/27/25 documented as of this encounter
--- OUTSIDE RECORDS SUMMARY | 2025-08-12 20:10 | XMS_ITS | Encounter Summary ---
Author Organization [employer] ([place], [place], [place], [place], [place]) Address [address] [place] [address] Care Team Providers Care Instructor Business Education Name Role Phone Igor Meyers MD Primary Care Provider [phone] Provider, Not In System UPHOLSTERY RESTORER Primary Care Provid er Unavailable [facility] Connection, Find-A-Doc Primary Care Provider [facility] Connection, Find-A-Doc Primary Care Provider [facility], Provider Not In The System Primary Care Provider Unavailable [facility] Connection, Find-A-Doc Primary Care Provider Encounter Details Date Type Department Care Team (Late st Contact Info) Description 06/20/2020 Transcribed Document [facility] Radiology [address] [place] [address] Niranjan Eng MD [address] [place] [address] Dept[place] [address] Social History Tobacco Use Types Packs/Day Years Used Date Smoking Tobacco: Never Assessed Comments Unknown Sex and Gender Information Value Date Recorded Sex Assigned at Not on file Legal Sex Female 1:33 PM CDT Gender Identity Not on file Sexual Orientation Not on file documented as of this encounter Miscellaneous Notes * Cerner Conversion Note - Niranjan Eng MD - 06/20/2020 7:27 AM EDT Electronically signed by [facility] Conversion Preforms Laminator Cerner at 12/10/2022 6:52 PM CDT documented in this encounter Plan of Treatment Not on file documented as of this encounter Visit Diagnoses Not on filedocumented in this encounter Care Teams Instructor Business Education Relationship Specialty Start Date End Date Igor Meyers MD [address] [place] [address] PCP - General Family Medicine 11/23/22 08/22/23 Provider, Not In System, CHRISTIAN SALAZAR PCP - General 08/23/23 08/27/24 [facility] Connection, Find-A-Doc [facility] Find-a-Doc [place], [place] [id number] PCP - General 08/28/24 11/06/24 [facility] Connection, Find-A-Doc [facility] Find-a-Doc [place], [place] [id number] PCP - General 11/07/24 02/22/25 [facility], Provider Not In The System, [address] [place] [address] PCP - General 02/23/25 06/26/25 [facility] Connection, Find-A-Doc [facility] Find-a-Doc [place], [place] [id number] PCP - General 06/27/25 documented as of this encounter
--- OUTSIDE RECORDS SUMMARY | 2025-08-12 20:10 | XMS_ITS | Encounter Summary ---
Author Organization [employer] ([place], [place], [place], [place], [place]) Address [address] [place] [address] Care Team Providers Care Supervisor Grove Name Role Phone Igor Meyers MD Primary Care Provider [phone] Provider, Not In System TRANSPORT DRIVER Primary Care Provid er Unavailable [facility] Connection, Find-A-Doc Primary Care Provider [facility], Find-A-Doc Primary Care Provider [facility], Provider Not In The System Primary Care Provider Unavailable [facility] Connection, Find-A-Doc Primary Care Provider Encounter Details Date Type Department Care Team (Late st Contact Info) Description 05/05/2019 Transcribed Document [facility] Family Medicine [address] [place] [address] ProviderRufino MD [address] [place] [address] Social History Tobacco Use Types Packs/Day Years Used Date Smoking Tobacco: Never Assessed Comments Unknown Sex and Gender Information Value Date Recorded Sex Assigned at Not on file Legal Sex Female 1:33 PM CDT Gender Identity Not on file Sexual Orientation Not on file documented as of this encounter Miscellaneous Notes * Cerner Conversion Note - Rufino ProviderMD - 05/05/2019 3:07 AM CDT Pain Assessment Entered On: 05/05/2019 3:53 EDT Performed On: 05/05/2019 3:53 EDT by Pastora Fajardo Rn Intervention Information: morphine Performed by LAWRENCE YING RN on 05/05/2019 03:13:00 EDT morphine,4mg IV Push,Left Antecubital [place] Pain Assessment Pain Assessment : Follow-up assessment Pain Scale Used : FACES Pastora Fajardo Rn - 05/05/2019 3:53 EDT Pain Scale Intensity : 4 Pastora Fajardo Rn - 05/05/2019 3:53 EDT Image 4 - Images currently included in the form version of this document have not been included in the text rendition version of the form. Electronically signed by Alphonse, [facility] Conversion Bird Raiser Cerner at 12/10/2022 6:30 PM CDT documented in this encounter Plan of Treatment Not on file documented as of this encounter Visit Diagnoses Not on filedocumented in this encounter Care Teams Supervisor Grove Relationship Specialty Start Date End Date Igor Meyers MD [address] [place] [address] PCP - General Family Medicine 11/23/22 08/22/23 Provider, Not In System, CHRISTIAN SALAZAR PCP - General 08/23/23 08/27/24 [facility] Connection, Find-A-Doc [facility] Find-a-[place], [place] [id number] PCP - General 08/28/24 11/06/24 [facility] Connection, Find-A-Doc [facility] [place] [address] PCP - General 11/07/24 02/22/25 [facility], Provider Not In The System, [place] [address] PCP - General 02/23/25 06/26/25 [facility] Connection, Find-A-Doc [facility] Find-a-Doc [place], [place] [address] PCP - General 06/27/25 documented as of this encounter
--- OUTSIDE RECORDS SUMMARY | 2025-08-12 20:10 | XMS_ITS | Encounter Summary ---
Author Organization [employer] ([place], [place], [place], [place], [place]) Address [address] [place] [address] Care Team Providers Care Pipeline Systems Operator Name Role Phone Igor Meyers MD Primary Care Provider [phone] Provider, Not In System OPTICAL GOODS DRILL OPERATOR Primary Care Provid er Unavailable [facility] Connection, Find-A-Doc Primary Care Provider [facility] Connection, Find-A-Doc Primary Care Provider [facility], Provider Not In The System Primary Care Provider Unavailable [facility] Connection, Find-A-Doc Primary Care Provider Encounter Details Date Type Department Care Team (Late st Contact Info) Description 06/20/2020 Transcribed Document [facility] [place] [address] ProviderRufino MD [address] [place] [address] Social History Tobacco Use Types Packs/Day Years Used Date Smoking Tobacco: Never Assessed Comments Unknown Sex and Gender Information Value Date Recorded Sex Assigned at Not on file Legal Sex Female 1:33 PM CDT Gender Identity Not on file Sexual Orientation Not on file documented as of this encounter Miscellaneous Notes * Cerner Conversion Note - Rufino ProviderMD - 06/20/2020 5:59 AM CDT Pain Assessment Entered On: 06/20/2020 6:43 EDT Performed On: 06/20/2020 6:19 EDT by Edith Jones Rn Intervention Information: morphine Performed by Edith Jones Rn on 06/20/2020 06:04:00 EDT morphine,4mg IV Push,Right Antecubit [place] Pain Assessment Pain Assessment : Follow-up assessment Pain Scale Used : 0-10 Scale Location : Chest, left Onset : Acute Edith Jones Rn - 06/20/2020 6:43 EDT Pain Scale Intensity : 4 Edith Jones Rn - 06/20/2020 6:43 EDT Image 4 - Images currently included in the form version of this document have not been included in the text rendition version of the form. Electronically signed by Alphonse, [facility] Conversion Rn Orthopedic Cerner at 12/10/2022 6:37 PM CDT documented in this encounter Plan of Treatment Not on file documented as of this encounter Visit Diagnoses Not on filedocumented in this encounter Care Teams Pipeline Systems Operator Relationship Specialty Start Date End Date Igor Meyers MD [address] [place] [address] PCP - General Family Medicine 11/23/22 08/22/23 Provider, Not In System, CHRISTIAN SALAZAR PCP - General 08/23/23 08/27/24 [facility] Connection, Find-A-Doc [facility] Find-a-[place], [place] [id number] PCP - General 08/28/24 11/06/24 [facility] Connection, Find-A-Doc [facility] Find-a-Doc [place], [place] [id number] PCP - General 11/07/24 02/22/25 [facility], Provider Not In The System, [place] [address] PCP - General 02/23/25 06/26/25 [facility] Connection, Find-A-Doc [facility] Find-a-Doc [place], [place] [address] PCP - General 06/27/25 documented as of this encounter
--- OUTSIDE RECORDS SUMMARY | 2025-08-12 20:10 | XMS_ITS | Encounter Summary ---
Author Organization [employer] ([place], [place], [place], [place], [place]) Address [address] [place] [address] Care Team Providers Care Visual Design Lead Name Role Phone Igor Meyers MD Primary Care Provider [phone] Provider, Not In System RN AMBULATORY Primary Care Provid er Unavailable [facility] Connection, Find-A-Doc Primary Care Provider [facility] Connection, Find-A-Doc Primary Care Provider [facility], Provider Not In The System Primary Care Provider Unavailable [facility] Connection, Find-A-Doc Primary Care Provider Encounter Details Date Type Department Care Team (Late st Contact Info) Description 11/20/2018 Transcribed Document [facility] [place] [facility] [place] [address] ProviderRufino MD [address] [place] [address] Social History Tobacco Use Types Packs/Day Years Used Date Smoking Tobacco: Never Assessed Comments Unknown Sex and Gender Information Value Date Recorded Sex Assigned at Not on file Legal Sex Female 1:33 PM CDT Gender Identity Not on file Sexual Orientation Not on file documented as of this encounter Miscellaneous Notes * Cerner Conversion Note - Historical ProviderMD - 11/20/2018 11:05 PM CDT [facility] [address] [place] [address] Patient Information Name: ROBERTO RANDLE Age: 58 Years Date of : 1960 Arrival Time: 11/20/2018 17:03:00 Diagnosis Chest pain Primary Care Physician: POLINA LAYNE (REF), -MED Provider Information Primary Provider: RIANA MALIK MD Secondary Provider: ROBERTO RANDLE JANE has been given the following list of patient education materials, prescriptions and follow-up instructions: Follow-up Instructions: Patient Education Materials: Allergies: sulfADIAZINE; sulfonamides Medication Information: Laboratory or Other Results This Visit (last charted value for your 11/20/2018 visit) Hematology 11/20/18 17:45:00 WBC: 11.3 K/uL -- Normal range between ( 3.9 and 10.0 ) RBC: 4.80 Million/uL -- Normal range between ( 3.93 and 5.22 ) Hct: 41.6 % -- Normal range between ( 34.1 and 44.9 ) Hgb: 13.4 Gram/dL -- Normal range between ( 11.2 and 15.7 ) Platelet Count: 243 K/uL -- Normal range between ( 163 and 369 ) MCH: 27.9 pg -- Normal range between ( 25.6 and 32.2 ) MCHC: 32.2 Gram/dL -- Normal range between ( 32.3 and 36.5 ) MCV: 86.7 fL -- Normal range between ( 79.0 and 94.8 ) Slide Review: No RDW: 14.2 % -- Normal range between ( 11.6 and 14.4 ) MPV: 10.9 fL -- Normal range between ( 9.4 and 12.4 ) General Chemistry 11/20/18 17:45:00 Creatinine Level: 0.70 mg/dL -- Normal range between ( 0.55 and 1.02 ) Sodium Level: 141 mmol/L -- Normal range between ( 136 and 146 ) Potassium Level: 3.6 mmol/L -- Normal range between ( 3.5 and 5.1 ) Chloride Level: 111 mmol/L -- Normal range between ( 102 and 112 ) Carbon Dioxide Level: 23 mmol/L -- Normal range between ( 21 and 32 ) Anion Gap: 11 -- Normal range between ( 9 and 20 ) Bilirubin Total: 0.2 mg/dL -- Normal range between ( 0.2 and 1.3 ) A/G Ratio: 1.0 -- Normal range between ( 1.1 and 2.5 ) ALT: 33 Units/Liter -- Normal range between ( 12 and 78 ) AST: 25 Units/Liter -- Normal range between ( 5 and 37 ) Globulin: 3.6 Gram/dL -- Normal range between ( 1.5 and 4.5 ) Alk Phos: 90 Units/Liter -- Normal range between ( 27 and 136 ) Bun/Creatinine: 25.7 -- Normal range between ( 8.0 and 20.0 ) Calcium Level: 9.0 mg/dL -- Normal range between ( 8.5 and 10.1 ) eGFR : >60 mL/min/1.73m2 eGFR NonAfrican: >60 mL/min/1.73m2 Glucose Level: 113 mg/dL -- Normal range between ( 74 and 106 ) Blood Urea Nitrogen: 18 mg/dL -- Normal range between ( 7 and 22 ) Protein Total: 7.1 Gram/dL -- Normal range between ( 6.4 and 8.2 ) Albumin Level: 3.5 Gram/dL -- Normal range between ( 3.4 and 5.0 ) Cardiac Specific Markers 11/20/18 19:38:00 Troponin I Ultra: <0.015 ng/mL -- Normal range between ( 0.015 and 0.045 ) 11/20/18 17:45:00 ProBNP: 84 pg/mL -- Normal range between ( 0 and 125 ) Medication Comment: Procedures: Laboratory Orders Name Status CBCND Completed CMP Completed PROBNP Completed TROPIULT Completed TROPIULT Completed Radiology Orders Name Status CR Chest 1 Vw Portable Ordered Cardiology Orders Name Status ECG Ordered ECG Ordered This statement is to verify that ROBERTO RANDLE was seen at [facility] on ,11/20/2018 23:05:25. This is not a work excuse, if [...] along the way. As a healthcare provider, [facility] recommends that you stop smoking. Assistance with quitting is available by contacting 2-133-HDFZ-NOW. This is a free resource providing counseling, [...] and accompanying documents are covered by Electronic Communications Privacy Act 18 U.S.C. ???Sections 1206-3579,?? and contain information intended for the specified [...] sure to sign up for the My [facility] patient portal, which gives you 19/03 access to your medical information ??? including these discharge instructions ??? using your computer, smartphone, or tablet. Just go to [employer] to get started. Questions? Call . Acknowledgment [...] on filedocumented in this encounter Care Teams Visual Design Lead Relationship Specialty Start Date End Date Igor Meyers MD [address] [place] [address] [place] [id number] PCP - General Family Medicine 11/23/22 08/22/23 Provider, Not In System, CHRISTIAN SALAZAR PCP - General 08/23/23 08/27/24 [facility] Connection, Find[facility]A-Doc [facility] [place] [address] PCP - General 08/28/24 11/06/24 [facility] Connection, [facility]Doc [facility] Find-a-Doc [place], [place] [id number] PCP - General 11/07/24 02/22/25 [facility], Provider Not In The System, [place] [address] PCP - General 02/23/25 06/26/25 [facility] Connection, Find-A-Doc [facility] Find-a-Doc [place], [place] [id number] PCP - General 06/27/25 documented as of this encounter
--- OUTSIDE RECORDS SUMMARY | 2025-08-12 20:10 | XMS_ITS | Encounter Summary ---
Author Organization [employer] ([place], [place], [place], [place], [place]) Address [address] [place] [address] Care Team Providers Care Foreign Student Adviser Name Role Phone Igor Meyers MD Primary Care Provider [phone] Provider, Not In System FUEL QUALITY TECH Primary Care Provid er Unavailable [facility] Connection, Find-A-Doc Primary Care Provider [facility], Find-A-Doc Primary Care Provider [facility], Provider Not In The System Primary Care Provider Unavailable [facility] Connection, Find-A-Doc Primary Care Provider Encounter Details Date Type Department Care Team (Late st Contact Info) Description 11/08/2018 Transcribed Document [facility] [place] Family [place] [address] [place] [address] ProviderRufino MD [address] [place] [address] Social History Tobacco Use Types Packs/Day Years Used Date Smoking Tobacco: Never Assessed Comments Unknown Sex and Gender Information Value Date Recorded Sex Assigned at Not on file Legal Sex Female 1:33 PM CDT Gender Identity Not on file Sexual Orientation Not on file documented as of this encounter Miscellaneous Notes * Cerner Conversion Note - Historical ProviderMD - 11/08/2018 3:54 PM CDT CR Chest 1 Vw Portable Ordered: 11/08/2018 Modified Reason for Exam: CP 11/08/2018 15:48 11/08/2018 15:54 (DENI CLINE PA) Reviewed by Provider, No further action required x1 documented in this encounter Plan of Treatment Not on file documented as of this encounter Visit Diagnoses Not on filedocumented in this encounter Care Teams Foreign Student Adviser Relationship Specialty Start Date End Date Igor Meyers MD [address] [place] [address] PCP - General Family Medicine 11/23/22 08/22/23 Provider, Not In System, CHRISTIAN SALAZAR PCP - General 08/23/23 08/27/24 [facility] Connection, Find-A-Doc [facility] [place] [address] PCP - General 08/28/24 11/06/24 [facility] Connection, Find-A-Doc [facility] [place] [address] PCP - General 11/07/24 02/22/25 [facility], Provider Not In The System, [address] [place] [address] PCP - General 02/23/25 06/26/25 [facility] Connection, Find-A-Doc [facility] [place] [address] PCP - General 06/27/25 documented as of this encounter
--- OUTSIDE RECORDS SUMMARY | 2025-08-12 20:10 | XMS_ITS | Encounter Summary ---
Author Organization [employer] ([place], [place], [place], [place], [place]) Address [address] [place] [address] Care Team Providers Care Emergency Vehicle Operations Instructor Name Role Phone Igor Meyers MD Primary Care Provider [phone] Provider, Not In System CASE AIDE Primary Care Provid er Unavailable [facility] Connection, Find-A-Doc Primary Care Provider [facility] Connection, Find-A-Doc Primary Care Provider [facility], Provider Not In The System Primary Care Provider Unavailable [facility] Connection, Find-A-Doc Primary Care Provider Encounter Details Date Type Department Care Team (Late st Contact Info) Description 05/05/2019 Transcribed Document [facility] [place] Family Medicine [address] [place] [address] ProviderRufino MD [address] [place] [address] Social History Tobacco Use Types Packs/Day Years Used Date Smoking Tobacco: Never Assessed Comments Unknown Sex and Gender Information Value Date Recorded Sex Assigned at Not on file Legal Sex Female 1:33 PM CDT Gender Identity Not on file Sexual Orientation Not on file documented as of this encounter Miscellaneous Notes * Cerner Conversion Note - Rufino ProviderMD - 05/05/2019 6:54 AM CDT Electronically signed by Alphonse [facility] Conversion Squadron Worker Cerner at 12/10/2022 6:44 PM CDT documented in this encounter Plan of Treatment Not on file documented as of this encounter Visit Diagnoses Not on filedocumented in this encounter Care Teams Emergency Vehicle Operations Instructor Relationship Specialty Start Date End Date Igor Meyers MD [address] [place] [address] VINNY Jasso [id number] PCP - General Family Medicine 11/23/22 08/22/23 Provider, Not In System, CHRISTIAN SALAZAR PCP - General 08/23/23 08/27/24 [facility] Connection, Find-A-Doc [facility] Find-a-Doc [place], [place] [id number] PCP - General 08/28/24 11/06/24 [facility] Connection, Find[facility]A-Doc [facility] [place] [address] PCP - General 11/07/24 02/22/25 [facility], Provider Not In The System[place] [address] PCP - General 02/23/25 06/26/25 [facility] Connection, Find-A-Doc [facility] Find-a-Doc [place], [place] [id number] PCP - General 06/27/25 documented as of this encounter
--- OUTSIDE RECORDS SUMMARY | 2025-08-12 20:11 | XMS_ITS | Encounter Summary ---
Author Organization [employer] ([place], [place], [place], [place], [place]) Address [address] [place] [address] Care Team Providers Care Metal Or Wood Blocker Name Role Phone Igor Meyers MD Primary Care Provider [phone] Provider, Not In System DYNAMOMETER TESTER Primary Care Provid er Unavailable [facility] Connection, Find-A-Doc Primary Care Provider [facility] Connection, Find-A-Doc Primary Care Provider [facility], Provider Not In The System Primary Care Provider Unavailable [facility] Connection, Find-A-Doc Primary Care Provider Encounter Details Date Type Department Care Team (Late st Contact Info) Description 02/15/2019 Transcribed Document [facility] [place] [address] [place] [address] ProviderRufino MD [address] [place] [address] Social History Tobacco Use Types Packs/Day Years Used Date Smoking Tobacco: Never Assessed Comments Unknown Sex and Gender Information Value Date Recorded Sex Assigned at Not on file Legal Sex Female 1:33 PM CDT Gender Identity Not on file Sexual Orientation Not on file documented as of this encounter Miscellaneous Notes * Cerner Conversion Note - Rufino ProviderMD - 02/15/2019 2:26 AM CDT Electronically signed by Alphonse [facility] Conversion Commercial Glazier Cerner at 12/10/2022 6:37 PM CDT documented in this encounter Plan of Treatment Not on file documented as of this encounter Visit Diagnoses Not on filedocumented in this encounter Care Teams Metal Or Wood Blocker Relationship Specialty Start Date End Date Igor Meyers MD [address] [place] [address] VINNY Jasso [id number] PCP - General Family Medicine 11/23/22 08/22/23 Provider, Not In System, CHRISTIAN SALAZAR PCP - General 08/23/23 08/27/24 [facility] Connection, Find-A-Doc [facility] Find-a-Doc [place], [place] [id number] PCP - General 08/28/24 11/06/24 [facility] Connection, Find-A-Doc [facility] [place] [address] PCP - General 11/07/24 02/22/25 [facility], Provider Not In The System[place] [address] PCP - General 02/23/25 06/26/25 [facility] Connection, Find-A-Doc [facility] Find-a-Doc [place], [place] [id number] PCP - General 06/27/25 documented as of this encounter
--- OUTSIDE RECORDS SUMMARY | 2025-08-12 20:11 | XMS_ITS | Encounter Summary ---
Author Organization [employer] ([place], [place], [place], [place], [place]) Address [address] [place] [address] Care Team Providers Care World History Teacher Name Role Phone Igor Meyers MD Primary Care Provider [phone] Provider, Not In System LEARNING SUPPORT SPECIALIST Primary Care Provid er Unavailable [facility] Connection, Find-A-Doc Primary Care Provider [facility] Connection, Find-A-Doc Primary Care Provider [facility], Provider Not In The System Primary Care Provider Unavailable [facility] Connection, Find-A-Doc Primary Care Provider Encounter Details Date Type Department Care Team (Late st Contact Info) Description 02/14/2019 Transcribed Document [facility] [place] Family [place] [address] ProviderRufino MD [address] [place] [address] Social History Tobacco Use Types Packs/Day Years Used Date Smoking Tobacco: Never Assessed Comments Unknown Sex and Gender Information Value Date Recorded Sex Assigned at Not on file Legal Sex Female 1:33 PM CDT Gender Identity Not on file Sexual Orientation Not on file documented as of this encounter Miscellaneous Notes * Cerner Conversion Note - Rufino ProviderMD - 02/14/2019 8:58 PM CDT ED Assessment Entered On: 02/14/2019 21:54 EDT Performed On: 02/14/2019 21:53 EDT by Rita Resendiz curb setter Quick Look Assessment Level of Consciousness : Alert, Awake Affect/Behavior : Appropriate, Calm, Cooperative Orientation : Oriented x 4 Skin Temperature : Warm Skin Description : Dry Rita Resendiz Rn - 02/14/2019 21:53 EDT ED General-Functional Assess Information Obtained From : Patient Preferred Communication Mode : Verbal Communication Barrier : None Primary Language : Andorran Any Spiritual/Cultural Needs or Requests : No Currently in Unsafe Situation : No Rita Resendiz Rn - 02/14/2019 21:53 EDT Social Habits Smoking Status : Never (less than 100 in lifetime; none in last 30 days) Smokeless Tobacco Status : Never Desires Tobacco Cessation Calc : 0 Rita Resendiz Rn - 02/14/2019 21:53 EDT Social History (As Of: 02/14/2019 21:54:25 EDT) Tobacco: Smoking Status Never smoker. (Last [...] ED Cardiovascular Symptoms : Chest pain at rest, Other: pt c/o soa all day with mid chest pain starting an hour prior to arrival in ER Rita Resendiz Rn - 02/14/2019 21:53 EDT documented in this encounter Plan of Treatment Not on file documented as of this encounter Visit Diagnoses Not on filedocumented in this encounter Care Teams World History Teacher Relationship Specialty Start Date End Date Igor Meyers MD [address] [place] [address] PCP - General Family Medicine 11/23/22 08/22/23 Provider, Not In System, CHRISTIAN SALAZAR PCP - General 08/23/23 08/27/24 [facility] Adan, Find-A-Doc [facility] [place] [address] PCP - General 08/28/24 11/06/24 [facility] Connection, Find[facility]Doc [facility] [place] [address] PCP - General 11/07/24 02/22/25 [facility], Provider Not In The System, [place] [address] PCP - General 02/23/25 06/26/25 [facility] Connection, Find-A-Doc [facility] [place] [address] PCP - General 06/27/25 documented as of this encounter
--- OUTSIDE RECORDS SUMMARY | 2025-08-12 20:11 | XMS_ITS | Encounter Summary ---
Author Organization [employer] ([place], [place], [place], [place], [place]) Address [address] [place] [address] Care Team Providers Care Area Field Person Name Role Phone Igor Meyers MD Primary Care Provider [phone] Provider, Not In System DROSSER Primary Care Provid er Unavailable [facility] Connection, Find-A-Doc Primary Care Provider [facility] Connection, Find-A-Doc Primary Care Provider [facility], Provider Not In The System Primary Care Provider Unavailable [facility] Connection, Find-A-Doc Primary Care Provider Encounter Details Date Type Department Care Team (Late st Contact Info) Description 05/08/2020 Transcribed Document [facility] [place] [facility] [place] [address] ProviderRufino MD [address] [place] [address] Social History Tobacco Use Types [...] ProviderMD - 05/08/2020 3:59 PM CDT ED Assessment Entered On: 05/08/2020 19:01 EDT Performed On: 05/08/2020 18:00 EDT by Ifeoma Bates SAWMILL HAND Quick Look Assessment Level of Consciousness : Alert, Awake Affect/Behavior : Calm, Cooperative Orientation : Oriented x 4 Skin Temperature : Warm Ifeoma Bates RN - 05/08/2020 19:00 EDT ED General-Functional Assess Information Obtained From : Patient Preferred Communication Mode : Verbal Communication Barrier : None Primary Language : Niuean Any Spiritual/Cultural Needs or Requests : No Currently in Unsafe Situation : No Ifeoma Bates RN - 05/08/2020 19:00 EDT Social Habits Smoking Status : Never (less than 100 in lifetime; none in last 30 days) Smokeless Tobacco Status : Never Desires Tobacco Cessation Calc : 0 Ifeoma Bates RN - 05/08/2020 19:00 EDT Social History (As Of: 05/08/2020 19:01:38 EDT) Tobacco: Smoking Status Never smoker. (Last [...] RN) Cardiovascular ASMT, ED Cardiovascular Symptoms : None Chest Pain : No Ifeoma Bates RN - 05/08/2020 19:00 EDT Integumentary Assessment Integumentary Assessment Comment : Abscess to left lateral neck with white drainage. Erythema noted. Pt c/o pain. Ifeoma Bates RN - 05/08/2020 19:00 EDT Neurologic ASMT, ED Lynn Coma Scale Link : Open [facility] Ifeoma Bates RN - 05/08/2020 19:00 EDT Lynn Coma [place] Best Motor Response : Obey commands Lynn Best Verbal Response : Oriented Lynn Eye Opening Response : Spontaneous Lynn Coma Score : 15 Ifeoma Bates RN - 05/08/2020 19:00 EDT documented in this encounter Plan of Treatment Not on file documented as of this encounter Visit Diagnoses Not on filedocumented in this encounter Care Teams Area Field Person Relationship Specialty Start Date End Date Igor Meyers MD [address] [place] [address] PCP - General Family Medicine 11/23/22 08/22/23 Provider, Not In System, CHRISTIAN SALAZAR PCP - General 08/23/23 08/27/24 [facility] Connection, Find[facility]A-Doc [facility] Find-a-Doc [place], [place] [id number] PCP - General 08/28/24 11/06/24 [facility] Connection, Find-A-Doc [facility] [place] [address] PCP - General 11/07/24 02/22/25 [facility], Provider Not In The System, [address] [place] [address] PCP - General 02/23/25 06/26/25 [facility] Connection, Find-A-Doc [facility] Find-a-Doc [place], [place] [id number] PCP - General 06/27/25 documented as of this encounter
--- OUTSIDE RECORDS SUMMARY | 2025-08-12 20:11 | XMS_ITS | Encounter Summary ---
Author Organization [employer] ([place], [place], [place], [place], [place]) Address [address] [place] [address] Care Team Providers Care Accountant Manager Name Role Phone Igor Meyers MD Primary Care Provider [phone] Provider, Not In System PERINATAL INSTRUCTOR Primary Care Provid er Unavailable [facility] Connection, Find-A-Doc Primary Care Provider [facility] Connection, Find-A-Doc Primary Care Provider [facility], Provider Not In The System Primary Care Provider Unavailable [facility] Connection, Find-A-Doc Primary Care Provider Encounter Details Date Type Department Care Team (Late st Contact Info) Description 06/20/2020 Transcribed Document [facility] [place] [facility] [place] [address] ProviderRufino MD [address] [place] [address] Social History Tobacco Use Types Packs/Day Years Used Date Smoking Tobacco: Never Assessed Comments Unknown Sex and Gender Information Value Date Recorded Sex Assigned at Not on file Legal Sex Female 1:33 PM CDT Gender Identity Not on file Sexual Orientation Not on file documented as of this encounter Miscellaneous Notes * Cerner Conversion Note - Rufino ProviderMD - 06/20/2020 4:45 AM CDT Pain Assessment Entered On: 06/20/2020 6:43 EDT Performed On: 06/20/2020 5:50 EDT by Edith Jones, Rn Intervention Information: acetaminophen-HYDROcodone Performed by Edith Jones, Rn on 06/20/2020 04:49:00 EDT acetaminophen-HYDROcodone,1Tab Oral Pain Assessment Pain Assessment : Follow-up assessment Pain Scale Used : 0-10 Scale Location : Chest, left Onset : Acute Edith Jones Rn - 06/20/2020 6:42 EDT Pain Scale Intensity : 8 Edith Jones Rn - 06/20/2020 6:42 EDT Image 4 - Images currently included in the form version of this document have not been included in the text rendition version of the form. Electronically signed by Alphonse, [facility] Conversion Orthotic/Prosthetic Practitioner Cerner at 12/10/2022 6:28 PM CDT documented in this encounter Plan of Treatment Not on file documented as of this encounter Visit Diagnoses Not on filedocumented in this encounter Care Teams Accountant Manager Relationship Specialty Start Date End Date Igor Meyers MD [address] [place] [address] PCP - General Family Medicine 11/23/22 08/22/23 Provider, Not In System, CHRISTIAN SALAZAR PCP - General 08/23/23 08/27/24 [facility] Connection, Find-A-Doc [facility] [place], [place] [id number] PCP - General 08/28/24 11/06/24 [facility] Connection, Find-A-Doc [facility] Find-a-Doc [place], [place] [id number] PCP - General 11/07/24 02/22/25 [facility], Provider Not In The System, [place] [address] PCP - General 02/23/25 06/26/25 [facility] Connection, Find-A-Doc [facility] Find-a-Doc [place], [place] [id number] PCP - General 06/27/25 documented as of this encounter
--- OUTSIDE RECORDS SUMMARY | 2025-08-12 20:11 | XMS_ITS | Encounter Summary ---
Author Organization [employer] ([place], [place], [place], [place], [place]) Address [address] [place] [address] Care Team Providers Care Hourly Caregiver Name Role Phone Igor Meyers MD Primary Care Provider [phone] Provider, Not In System DIPPER AND DRIER Primary Care Provid er Unavailable [facility] Connection, Find-A-Doc Primary Care Provider [facility] Connection, Find-A-Doc Primary Care Provider [facility], Provider Not In The System Primary Care Provider Unavailable [facility] Connection, Find-A-Doc Primary Care Provider Encounter Details Date Type Department Care Team (Late st Contact Info) Description 11/21/2018 Transcribed Document [facility] [place] Family [place] [facility] [place] [address] ProviderRufino MD [address] [place] [address] Social History Tobacco Use Types Packs/Day Years Used Date Smoking Tobacco: Never Assessed Comments Unknown Sex and Gender Information Value Date Recorded Sex Assigned at Not on file Legal Sex Female 1:33 PM CDT Gender Identity Not on file Sexual Orientation Not on file documented as of this encounter Miscellaneous Notes * Cerner Conversion Note - Rufino ProviderMD - 11/21/2018 10:48 AM CDT Nursing Discharge Summary Entered On: 11/21/2018 10:50 EDT Performed On: 11/21/2018 10:48 EDT by Essie Jalloh RN Discharge Documentation Patient Disposition, General : Discharge Discharge To : Home with ambulatory/outpatient follow-up Mode Of Departure, General Discharge : Private vehicle IV Discontinued : Yes Medications Given to Patient : No Personal Belongings With Patient : Yes Prescriptions Given to Patient : Electronically sent Discharge Instructions Reviewed With, Opportunity For Questions Given : Patient Patient Education Completed : Yes Teaching Method : Explanation Teaching Evaluation : Verbalizes understanding Essie Jalloh RN - 11/21/2018 10:48 EDT Electronically signed by Alphonse [facility] Conversion Curtain Supervisor Cerner at 12/10/2022 6:50 PM CDT documented in this encounter Plan of Treatment Not on file documented as of this encounter Visit Diagnoses Not on filedocumented in this encounter Care Teams Hourly Caregiver Relationship Specialty Start Date End Date Igor Meyers MD [address] [place] [address] PCP - General Family Medicine 11/23/22 08/22/23 Provider, Not In System, CHRISTIAN SALAZAR PCP - General 08/23/23 08/27/24 [facility] Connection, Find-A-Doc [facility] [place] [address] PCP - General 08/28/24 11/06/24 [facility], Find-A-Doc [facility] [place] [address] PCP - General 11/07/24 02/22/25 [facility], Provider Not In The System, [place] [address] PCP - General 02/23/25 06/26/25 [facility] Connection, Find-A-Doc [facility] [place] [address] PCP - General 06/27/25 documented as of this encounter
--- OUTSIDE RECORDS SUMMARY | 2025-08-12 20:11 | XMS_ITS | Encounter Summary ---
Author Organization [employer] ([place], [place], [place], [place], [place]) Address [address] [place] [address] Care Team Providers Care Field Marketing Director Name Role Phone Igor Meyers MD Primary Care Provider [phone] Provider, Not In System SR. VENDOR MANAGEMENT ASSOCIATE Primary Care Provid er Unavailable [facility], [facility]-A-Doc Primary Care Provider [facility], [facility] Primary [facility] Provider [facility], Provider Not In The System Primary Care Provider Unavailable [facility], Find-A-Doc Primary Care Provider Encounter Details Date Type Department Care Team (Late st Contact Info) Description 04/24/2020 Transcribed Document [facility] Radiology 1 [place] [address] Niranjan Villar MD [address] [place] [address] Dept[place] [address] Social History Tobacco Use Types Packs/Day Years Used Date Smoking Tobacco: Never Assessed Comments Unknown Sex and Gender Information Value Date Recorded Sex Assigned at Not on file Legal Sex Female 1:33 PM CDT Gender Identity Not on file Sexual Orientation Not on file documented as of this encounter Miscellaneous Notes * Cerner Conversion Note - Niranjan Villar MD - 04/24/2020 1:40 AM EDT Patient: ROBERTO RANDLE Age: 59 years Sex: Female : 1960 Associated Diagnoses: Chest pain; Nausea; Chronic CHF; Nausea and vomiting Author: NIRANJAN VILLAR MD-EMR Basic Information Additional information: Chief Complaint from Nursing Triage Note : Chief Complaint 04/24/2020 0:13 EDT Chief Complaint PATIENT PRESENTS PER EMS, REPORTS CHEST PAIN THAT STARTED AT 8PM THAT RADIATES TO HER BACK. 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 COMPLAINS OF NAUSEA SECONDARY TO NEW MED FOR ANGINA . History of Present Illness The patient presents with nausea and nausea with new medication, for two days, no fever chills or othern ew symptoms. The course/duration of symptoms is constant. The character of symptoms is clear. The degree at present is moderate. There are exacerbating factors including eating and drinking. The relieving factor is none. Risk factors consist of none. Therapy today: none. Associated symptoms: none and prior history of angina/chest pain,this has been stable. Review of Systems Additional review of systems information: All other systems reviewed and otherwise negative. Health Status Allergies: Allergic Reactions (Selected) Severe SulfADIAZINE- C/o: a swelling and itching. Moderate Sulfonamides- Itching and rash. Severity Not Documented Ibuprofen- No reactions were documented.. Medications: (Selected) Prescriptions Prescribed Ranexa 1000 mg oral tablet, extended release: 1 Tab, Oral, BID, for 30 Day(s), 60 Tab, 0 Refill(s) Documented Medications Documented Basaglar KwikPen: 10 Units, SubCutaneous, Daily, PRN: Hyperglycemia, 0 Refill(s) Januvia: 100 mg, Oral, Daily, 0 Refill(s) Lyrica: 75 mg, Oral, BID, 0 Refill(s) Nitrostat 0.4 mg sublingual tablet: 1 Tab, SubLINgual, Q5Min, PRN: as needed for chest pain, 100 Tab, 0 Refill(s) Vitamin D3: 2,000 Int Units, Oral, Daily, 0 Refill(s) Xarelto 10 mg oral tablet: 1 Tab, Oral, Daily, 0 Refill(s) amLODIPine: 5 mg, Oral, Daily, 0 Refill(s) atorvastatin 40 mg oral tablet: 1 Tab, Oral, Daily, 0 Refill(s) furosemide 40 mg oral tablet: Tab, Oral, Daily, 0 Refill(s) glyBURIDE: 10 mg, Oral, Daily, 0 Refill(s) metformin: 1,000 mg, Oral, BID, 0 Refill(s) multivitamin: Daily, 0 Refill(s) potassium chloride 20 mEq oral tablet, extended release: Tab, Oral, Daily, 0 Refill(s) traZODone 100 mg oral tablet: 1 Tab, Oral, At Bedtime, 0 Refill(s). Past Medical/ Family/ Social History Medical history Reviewed as documented in chart. 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 hysterectomy. tubal. Cholecystectomy; (36855). Multiple brain surgeries. Heart surgery as child.. Family history: No family history items have [...] documented in chart. Problem list: Active Problems (11) Apnea, sleep Chest pain Chronic CHF COPD (chronic obstructive pulmonary disease) with emphysema Diabetes Genital herpes History of obstructive sleep apnea HTN (hypertension) Hydrocephalus Hyperlipemia Myocardial infarction , per nurse's notes. Physical Examination Vital Signs Vital Signs/Vital Measures 04/24/2020 0:13 EDT Blood Pressure Location Arm, left upper Blood Pressure Source Non-Invasive BP Device Systolic Blood Pressure 161 mmHg HI Diastolic Blood Pressure 78 mmHg Temperature Source Oral Temperature Mode Fahrenheit Temperature, Fahrenheit 98.2 Deg F Clinical Temperature, C 36.8 Deg C Peripheral Pulse Rate 80 bpm Respiratory Rate 16 Breaths/Min Oxygen Saturation 94 % Oxygen Therapy Mode Room air . Oxygen saturation. General: Alert, no acute distress. Skin: Warm, dry, pink, intact. Head: Normocephalic, atraumatic. Neck: Supple, trachea midline, no tenderness. Eye: Pupils are equal, round and reactive to light, extraocular movements are intact, normal conjunctiva. Ears, nose, mouth and throat: Oral mucosa moist. Cardiovascular: Regular rate and rhythm, Normal peripheral perfusion. Respiratory: Lungs are clear to auscultation. Chest wall: No tenderness. Back: Nontender. Musculoskeletal: Normal ROM. Gastrointestinal: Soft, Tenderness: Mild, Guarding: Negative. Genitourinary: No tenderness. Neurological: Alert and oriented to person, place, time, and situation. Lymphatics: No lymphadenopathy. Psychiatric: Cooperative. Medical Decision Making Documents reviewed: Emergency department nurses' notes, emergency department records. Orders Place New Orders Laboratory: CBC w/ Auto Diff (Order): Specimen Type: Blood, Stat collect, 04/24/2020 0:42 EDT, 1-Time, Stop: 04/24/2020 0:42 EDT, Nurse Collect Troponin I Ultra (Order): Specimen Type: Blood, Stat collect, 04/24/2020 0:42 EDT, 1-Time, Stop: 04/24/2020 0:42 EDT, Nurse Collect CMP Comprehensive Metabolic Panel (Order): Specimen Type: Blood, Stat collect, 04/24/2020 0:42 EDT, 1-Time, Stop: 04/24/2020 0:42 EDT, Nurse Collect Lipase Level (Order): Specimen Type: Blood, Stat collect, 04/24/2020 0:42 EDT, 1-Time, Stop: 04/24/2020 0:42 EDT, Nurse Collect Patient Care: Saline Lock Insert (Order): Start: 04/24/2020 0:42 EDT Pharmacy: morphine (Order): 2 mg, IV Push, 1-Time Zofran (Order): 4 mg, IV Push, 1-Time Zofran (Order): 4 mg, IV Push, 1-Time Radiology: CR Chest 1 Vw Portable (Order): Stat, Transport Mode: Wheelchair, 04/24/2020 0:42 EDT, cp Cardiology: EKG (Order): Start: 04/24/2020 0:42 EDT, Stat, 1-Time. Electrocardiogram: Normal sinus rhythm. Results review: Lab results : Lab Results 04/24/2020 0:42 EDT Sodium Level 140 mmol/L Potassium Level 4.3 mmol/L Chloride Level 105 mmol/L Carbon Dioxide Level 27 mmol/L Anion Gap 12 Glucose Level 206 mg/dL HI Blood Urea Nitrogen 18 mg/dL Creatinine Level 0.67 mg/dL eGFR >60 mL/min/1.73m2 eGFR NonAfrican >60 mL/min/1.73m2 Bun/Creatinine 26.9 HI Calcium Level 9.4 mg/dL Protein Total 6.5 Gram/dL Albumin Level 3.3 Gram/dL LOW Globulin 3.2 Gram/dL A/G Ratio 1.0 LOW Bilirubin Total 0.3 mg/dL Alk Phos 65 Units/Liter AST 18 Units/Liter ALT 31 Units/Liter Lipase Level 117 Units/Liter Troponin I Ultra <0.015 ng/mL WBC 11.5 K/uL HI RBC 4.42 Million/uL Hgb 12.8 Gram/dL Hct 39.1 % MCV 88.5 fL MCH 29.0 pg MCHC 32.7 Gram/dL Platelet Count 251 K/uL MPV 10.2 fL RDW 13.4 % Neut % 62.1 % Neut # 7.11 K/uL HI Lymph % 27.7 % Lymph # 3.18 K/uL Clark % 6.5 % Clark # 0.75 K/uL Eos % 1.6 % Eos # 0.18 K/uL Baso % 0.4 % Baso # 0.05 K/uL Slide Review No IG# 0 x10(3)/uL IG% 2 % HI . Chest X-Ray: No acute disease process. Impression and Plan Diagnosis Complaint of Chest pain - Reason For Visit, Emergency medicine, Medical Nausea - Reason For Visit, Emergency medicine, Medical Chronic CHF - Discharge, Emergency medicine, Medical Nausea and vomiting - Discharge, Emergency medicine, Medical Plan Condition: Stable. Disposition: Discharged Pharmacy: Zofran ODT 4 mg oral tablet, disintegrating (Prescribe): 1 Tab, Oral, TID, for 5 Day(s), 15 Tab, 0 Refill(s) Admit/Transfer/Discharge: Discharge (Order): Start: 04/24/2020 2:37 EDT, Discharge to: Home . Patient was given the following educational materials: Vomiting, Adult. Follow up with: NO PRIM DR PERDOMO Within 2 to 3 days; Follow up with specialist Within 2 to 3 days follow up wsith your primary and cardiology for medication side effects andcontinued care with established disease . Electronically signed by Alphonse [facility] Conversion Garnett Machine Operator Cerner at 12/10/2022 6:51 PM CDT documented in this encounter Plan of Treatment Not on file documented as of this encounter Visit Diagnoses Not on filedocumented in this encounter Care Teams Field Marketing Director Relationship Specialty Start Date End Date Igor Meyers MD [address] [place] [address] PCP - General Family Medicine 11/23/22 08/22/23 Provider, Not In System, CHRISTIAN SALAZAR PCP - General 08/23/23 08/27/24 [facility], [facility]-A-Doc [facility] [place] [address] PCP - General 08/28/24 11/06/24 [facility], [facility]Doc [facility] [place] [address] PCP - General 11/07/24 02/22/25 [facility], Provider Not In The System, [place] [address] PCP - General 02/23/25 06/26/25 [facility], [facility]Doc [facility] [place] [address] PCP - General 06/27/25 documented as of this encounter
--- OUTSIDE RECORDS SUMMARY | 2025-08-12 20:11 | XMS_ITS | Encounter Summary ---
Author Organization [employer] ([place], [place], [place], [place], [place]) Address [address] [place] [address] Care Team Providers Care Search Engine Marketing Specialist Name Role Phone Igor Meyers MD Primary Care Provider [phone] Provider, Not In System NEONATAL CRITICAL CARE NURSE Primary Care Provid er Unavailable [facility], Find-A-Doc Primary Care Provider [facility], [facility]Doc Primary Care Provider [facility], Provider Not In The System Primary Care Provider Unavailable [facility], Find-A-Doc Primary Care Provider Encounter Details Date Type Department Care Team (Late st Contact Info) Description 04/24/2020 Transcribed Document [facility] Radiology 1 [place] [address] Niranjan Villar MD [address] [place] [address] Dept. of [place] [address] Social History Tobacco Use Types Packs/Day Years Used Date Smoking Tobacco: Never Assessed Comments Unknown Sex and Gender Information Value Date Recorded Sex Assigned at Not on file Legal Sex Female 1:33 PM CDT Gender Identity Not on file Sexual Orientation Not on file documented as of this encounter Miscellaneous Notes * Cerner Conversion Note - Niranjan Villar MD - 04/24/2020 7:05 PM EDT CR Chest 1 Vw Portable Ordered: 04/24/2020 Modified Reason for Exam: cp 04/24/2020 10:47 04/24/2020 18:05 (NIRANJAN VILLAR MD-EMR) Reviewed by Provider, No further action required Electronically signed by Alphonse [facility] Conversion Collector Of Port Cerner at 12/10/2022 6:38 PM CDT documented in this encounter Plan of Treatment Not on file documented as of this encounter Visit Diagnoses Not on filedocumented in this encounter Care Teams Search Engine Marketing Specialist Relationship Specialty Start Date End Date Igor Meyers MD [address] [place] [address] PCP - General Family Medicine 11/23/22 08/22/23 Provider, Not In System, CHRISTIAN SALAZAR PCP - General 08/23/23 08/27/24 [facility], Find-A-Doc [facility] Find-a-Doc [place], [place] [id number] PCP - General 08/28/24 11/06/24 [facility], [facility]Doc [facility] [place] [address] PCP - General 11/07/24 02/22/25 [facility], Provider Not In The System, [place] [address] PCP - General 02/23/25 06/26/25 [facility], [facility] [place], [place] [id number] PCP - General 06/27/25 documented as of this encounter
--- OUTSIDE RECORDS SUMMARY | 2025-08-12 20:11 | XMS_ITS | Encounter Summary ---
Author Organization [employer] ([place], [place], [place], [place], [place]) Address [address] [place] [address] Care Team Providers Care Huller Operator Name Role Phone Igor Meyers MD Primary Care Provider [phone] Provider, Not In System MACHINIST MECHANIC Primary Care Provid er Unavailable [facility], Find-A-Doc Primary Care Provider [facility], [facility]Doc Primary Care Provider [facility], Provider Not In The System Primary Care Provider Unavailable [facility], Find[facility]A-Doc Primary Care Provider Encounter Details Date Type Department Care Team (Late st Contact Info) Description 06/20/2020 Transcribed Document [facility] Family Medicine [address] [place] [address] ProviderRufino MD [address] [place] [address] Social History Tobacco Use Types Packs/Day Years Used Date Smoking Tobacco: Never Assessed Comments Unknown Sex and Gender Information Value Date Recorded Sex Assigned at Not on file Legal Sex Female 1:33 PM CDT Gender Identity Not on file Sexual Orientation Not on file documented as of this encounter Miscellaneous Notes * Cerner Conversion Note - Rufino ProviderMD - 06/20/2020 7:10 AM CDT ED Event Note Entered On: 06/20/2020 7:11 EDT Performed On: 06/20/2020 7:10 EDT by Edith Jones, associate director regulatory affairs Event Note ED Event Date/Time : 06/20/2020 7:10 EDT ED Description of Event : Gave report to Edith Howell RN, Rn - 06/20/2020 7:10 EDT Electronically signed by Alphonse [facility] Conversion Gas Meter Reader Cerner at 12/10/2022 6:28 PM CDT documented in this encounter Plan of Treatment Not on file documented as of this encounter Visit Diagnoses Not on filedocumented in this encounter Care Teams Huller Operator Relationship Specialty Start Date End Date Igor Meyers MD [address] [place] [address] PCP - General Family Medicine 11/23/22 08/22/23 Provider, Not In System, CHRISTIAN SALAZAR PCP - General 08/23/23 08/27/[address] [facility] Connection, Find-A-Doc [facility] Find-a-Doc [place], [place] [id number] PCP - General 08/28/24 11/06/[address] [facility] Connection, Find[facility]A-Doc [facility] Find-a-Doc [place], [place] [address] PCP - General 11/07/24 02/22/[address] [facility], Provider Not In The System, [place] [address] PCP - General 02/23/25 06/26/[address] [facility] Connection, Find-A-Doc [facility] Find-a-Doc [place], [place] [id number] PCP - General 06/27/25 documented as of this encounter
--- OUTSIDE RECORDS SUMMARY | 2025-08-12 20:11 | XMS_ITS | Encounter Summary ---
Author Organization [employer] ([place], [place], [place], [place], [place]) Address [address] [place] [address] Care Team Providers Care Title Lawyer Name Role Phone Igor Meyers MD Primary Care Provider [phone] Provider, Not In System GETTERING OPERATOR Primary Care Provid er Unavailable [facility], Find-A-Doc Primary Care Provider [facility], [facility]Doc Primary Care Provider [facility], Provider Not In The System Primary Care Provider Unavailable [facility], Find-A-Doc Primary Care Provider Encounter Details Date Type Department Care Team (Late st Contact Info) Description 11/21/2018 Transcribed Document [facility] Family Medicine [address] [place] [address] ProviderRufino MD [address] [place] [address] Social History Tobacco Use Types Packs/Day Years Used Date Smoking Tobacco: Never Assessed Comments Unknown Sex and Gender Information Value Date Recorded Sex Assigned at Not on file Legal Sex Female 1:33 PM CDT Gender Identity Not on file Sexual Orientation Not on file documented as of this encounter Miscellaneous Notes * Cerner Conversion Note - Historical ProviderMD - 11/21/2018 10:28 AM CDT Therapy Screen, PT Entered On: 11/21/2018 10:31 EDT Performed On: 11/21/2018 10:28 EDT by CARLOS PHILIPPE PT Therapy Screen, PT Medical Chart Reviewed : Yes Person Providing Information : Nurse, Patient Screen Completed : Yes Recommendation for Evaluation, PT : None Recommendations Upon Discharge : None Additional Therapy Screen Comment : Patient denies need for PT services. Reports she is at her baseline with mobility - up ad kadi/Independent. Patient may possibly discharge home today per RN. CARLOS PHILIPPE, PT - 11/21/2018 10:30 EDT Electronically signed by Alphonse [facility] Conversion Administration Specialist Cerner at 12/10/2022 6:49 PM CDT documented in this encounter Plan of Treatment Not on file documented as of this encounter Visit Diagnoses Not on filedocumented in this encounter Care Teams Title Lawyer Relationship Specialty Start Date End Date Igor Meyers MD [address] [place] [address] PCP - General Family Medicine 11/23/22 08/22/23 Provider, Not In System, CHRISTIAN SALAZAR PCP - General 08/23/23 08/27/24 [facility], Find-A-Doc [facility] Find-a-Doc [place], [place] [id number] PCP - General 08/28/24 11/06/24 [facility], Find-A-Doc [facility] [place] [address] PCP - General 11/07/24 02/22/25 [facility], Provider Not In The System, [place] [address] PCP - General 02/23/25 06/26/25 [facility], Find-A-Doc [facility] [place] [address] PCP - General 06/27/25 documented as of this encounter
--- OUTSIDE RECORDS SUMMARY | 2025-08-12 20:11 | XMS_ITS | Encounter Summary ---
Author Organization [employer] ([place], [place], [place], [place], [place]) Address [address] [place] [address] Care Team Providers Care Computer Programmer Analyst Name Role Phone Igor Meyers MD Primary Care Provider [phone] Provider, Not In System CURB WORKER Primary Care Provid er Unavailable [facility], [facility]A-Doc Primary Care Provider [facility], [facility]Doc Primary Care Provider [facility], Provider Not In The System Primary Care Provider Unavailable [facility], Find-A-Doc Primary Care Provider Encounter Details Date Type Department Care Team (Late st Contact Info) Description 04/07/2019 Transcribed Document [facility] Family Medicine [address] [place] [address] ProviderRufino MD [address] [place] [address] Social History Tobacco Use Types Packs/Day Years Used Date Smoking Tobacco: Never Assessed Comments Unknown Sex and Gender Information Value Date Recorded Sex Assigned at Not on file Legal Sex Female 1:33 PM CDT Gender Identity Not on file Sexual Orientation Not on file documented as of this encounter Miscellaneous Notes * Cerner Conversion Note - Rufino ProviderMD - 04/07/2019 10:50 PM CDT Pain Assessment Entered On: 04/08/2019 0:54 EDT Performed On: 04/08/2019 0:54 EDT by Jose Moss Rn Intervention Information: lidocaine topical Performed by Jose Moss Rn on 04/07/2019 23:47:00 EDT lidocaine topical,15mL Oral Pain Assessment Pain Assessment : Follow-up assessment Jose Moss Rn - 04/08/2019 0:54 EDT Electronically signed by Alphonse [facility] Conversion Vacuum Frame Operator Cerner at 12/10/2022 6:30 PM CDT documented in this encounter Plan of Treatment Not on file documented as of this encounter Visit Diagnoses Not on filedocumented in this encounter Care Teams Computer Programmer Analyst Relationship Specialty Start Date End Date Igor Meyers MD [address] [place] [address] PCP - General Family Medicine 11/23/22 08/22/23 Provider, Not In System, CURB WORKER [place] PCP - General 08/23/23 08/27/24 [facility], Find-A-Doc [facility] Find-a-Doc [place], [place] [id number] PCP - General 08/28/24 11/06/24 [facility], Find-A-Doc [facility] Find-a-Doc [place], [place] [id number] PCP - General 11/07/24 02/22/25 [facility], Provider Not In The System, [address] [place] [address] PCP - General 02/23/25 06/26/25 [facility], Find-A-Doc [facility] Find-a-Doc [place], [place] [id number] PCP - General 06/27/25 documented as of this encounter
--- OUTSIDE RECORDS SUMMARY | 2025-08-12 20:11 | XMS_ITS | Encounter Summary ---
Author Organization [employer] ([place], [place], [place], [place], [place]) Address [address] [place] [address] Care Team Providers Care Commercial Lines Manager Name Role Phone Igor Meyers MD Primary Care Provider [phone] Provider, Not In System TATTOOER Primary Care Provid er Unavailable [facility], Find[facility]A-Doc Primary Care Provider [facility], [facility]Doc Primary Care Provider [facility], Provider Not In The System Primary Care Provider Unavailable [facility], Find-A-Doc Primary Care Provider Encounter Details Date Type Department Care Team (Late st Contact Info) Description 04/08/2019 Transcribed Document [facility] Family Medicine [address] [place] [address] ProviderRufino MD [address] [place] [address] Social History Tobacco Use Types Packs/Day Years Used Date Smoking Tobacco: Never Assessed Comments Unknown Sex and Gender Information Value Date Recorded Sex Assigned at Not on file Legal Sex Female 1:33 PM CDT Gender Identity Not on file Sexual Orientation Not on file documented as of this encounter Miscellaneous Notes * Cerner Conversion Note - Rufino ProviderMD - 04/08/2019 2:29 AM CDT ED Discharge Entered On: 04/08/2019 2:30 EDT Performed On: 04/08/2019 2:29 EDT by Jose Moss Rn Discharge Process Patient Disposition : Discharge (Comment: patietn discharged with no distress observed [Jose Moss Rn - 04/08/2019 2:29 EDT] ) Personal Belongings With Patient : Yes Patient Education Completed : Yes Teaching Evaluation : Verbalizes understanding IV Discontinued : Yes Nursing Documentation Completed : Yes Jose Moss Rn - 04/08/2019 2:29 EDT ED Discharge Discharge To : Home with ambulatory/outpatient follow-up Mode Of Departure : Private vehicle Accompanied By : Friend Discharge Instructions Reviewed With, Opportunity For Questions Given : Patient Prescriptions Given to Patient : Yes Number of Prescriptions Given : 3 Jose Moss Rn - 04/08/2019 2:29 EDT Electronically signed by [facility] Conversion Director Cardiovascular Cerner at 12/10/2022 6:29 PM CDT documented in this encounter Plan of Treatment Not on file documented as of this encounter Visit Diagnoses Not on filedocumented in this encounter Care Teams Commercial Lines Manager Relationship Specialty Start Date End Date Igor Meyers MD [address] [place] [address] PCP - General Family Medicine 11/23/22 08/22/23 Provider, Not In System, CHRISTIAN SALAZAR PCP - General 08/23/23 08/27/24 [facility] Connection, Find-A-Doc [facility] Find-a-Doc [place], [place] [id number] PCP - General 08/28/24 11/06/24 [facility], Find-A-Doc [facility] [place], [place] [id number] PCP - General 11/07/24 02/22/25 [facility], Provider Not In The System[place] [address] PCP - General 02/23/25 06/26/25 [facility], Find-A-Doc [facility] Find-a-Doc [place], [place] [id number] PCP - General 06/27/25 documented as of this encounter
--- OUTSIDE RECORDS SUMMARY | 2025-08-12 20:11 | XMS_ITS | Encounter Summary ---
Author Organization [employer] ([place], [place], [place], [place], [place]) Address [address] [place] [address] Care Team Providers Care Customer Service Cashier Name Role Phone Igor Meyers MD Primary Care Provider [phone] Provider, Not In System GLOBAL COMPENSATION MANAGER Primary Care Provid er Unavailable [facility] Connection, Find-A-Doc Primary Care Provider [facility], [facility]Doc Primary Care Provider [facility], Provider Not In The System Primary Care Provider Unavailable [facility], Find-A-Doc Primary Care Provider Encounter Details Date Type Department Care Team (Late st Contact Info) Description 11/21/2018 Transcribed Document [facility] [place] Family Medicine [facility] [place] [address] ProviderRufino MD [address] [place] [address] Social History Tobacco Use Types Packs/Day Years Used Date Smoking Tobacco: Never Assessed Comments Unknown Sex and Gender Information Value Date Recorded Sex Assigned at Not on file Legal Sex Female 1:33 PM CDT Gender Identity Not on file Sexual Orientation Not on file documented as of this encounter Miscellaneous Notes * Cerner Conversion Note - Historical ProviderMD - 11/21/2018 5:00 AM CDT Chart Check - Review Order Profile Entered On: 11/21/2018 5:18 EDT Performed On: 11/21/2018 5:00 EDT by Francia Mckeon RN Chart Check Chart Reviewed Date and Time : 11/21/2018 5:18 EDT Powerplans Initiated/Discontinued as Appropriate : Yes All Active Orders Reviewed : Yes Francia Mckeon, RN - 11/21/2018 5:18 EDT Electronically signed by [facility], [facility] Conversion Roller Coaster Operator Cerner at 12/10/2022 6:45 PM CDT documented in this encounter Plan of Treatment Not on file documented as of this encounter Visit Diagnoses Not on filedocumented in this encounter Care Teams Customer Service Cashier Relationship Specialty Start Date End Date Igor Meyers MD [address] [place] [address] PCP - General Family Medicine 11/23/22 08/22/23 Provider, Not In System, CHRISTIAN [place] PCP - General 08/23/23 08/27/24 [facility], Find-A-Doc [facility] Find-a-Doc [place], [place] [id number] PCP - General 08/28/24 11/06/24 [facility], Find[facility]A-Doc [facility] [place] [address] PCP - General 11/07/24 02/22/25 [facility], Provider Not In The System, [place] [address] PCP - General 02/23/25 06/26/25 [facility], Find-A-Doc [facility] Find-a-Doc [place], [place] [id number] PCP - General 06/27/25 documented as of this encounter
--- OUTSIDE RECORDS SUMMARY | 2025-08-12 20:11 | XMS_ITS | Encounter Summary ---
Author Organization [employer] ([place], [place], [place], [place], [place]) Address [address] [place] [address] Care Team Providers Care Fingernail Former Name Role Phone Igor Meyers MD Primary Care Provider [phone] Provider, Not In System COMMUTATOR TESTER Primary Care Provid er Unavailable [facility] Connection, Find-A-Doc Primary Care Provider [facility], Find[facility]A-Doc Primary Care Provider [facility], Provider Not In The System Primary Care Provider Unavailable [facility] Connection, Find-A-Doc Primary Care Provider Encounter Details Date Type Department Care Team (Late st Contact Info) Description 06/20/2020 Transcribed Document [facility] [place] Family [place] [facility] [address] ProviderRufino MD [address] [place] [address] Social History Tobacco Use Types Packs/Day Years Used Date Smoking Tobacco: Never Assessed Comments Unknown Sex and Gender Information Value Date Recorded Sex Assigned at Not on file Legal Sex Female 1:33 PM CDT Gender Identity Not on file Sexual Orientation Not on file documented as of this encounter Miscellaneous Notes * Cerner Conversion Note - Rufino ProviderMD - 06/20/2020 3:52 AM CDT ED Event Note Entered On: 06/20/2020 3:52 EDT Performed On: 06/20/2020 3:52 EDT by Edith Jones Rn ED Event Note ED Event Date/Time : 06/20/2020 3:52 EDT ED Description of Event : Pt resting no distress noted Edith Jones Rn - 06/20/2020 3:52 EDT Electronically signed by Alph[facility] Conversion Fishing Lure Assembler Cerner at 12/10/2022 6:28 PM CDT documented in this encounter Plan of Treatment Not on file documented as of this encounter Visit Diagnoses Not on filedocumented in this encounter Care Teams Fingernail Former Relationship Specialty Start Date End Date Igor Meyers MD [address] [place] [address] PCP - General Family Medicine 11/23/22 08/22/23 Provider, Not In System, CHRISTIAN SALAZAR PCP - General 08/23/23 08/27/24 [facility] Connection, Find-A-Doc [facility] Find-a-Doc [place], [place] [id number] PCP - General 08/28/24 11/06/24 [facility] Connection, Find-A-Doc [facility] Find-a-Doc [place], [place] [id number] PCP - General 11/07/24 02/22/25 [facility], Provider Not In The System, [place] [address] PCP - General 02/23/25 06/26/25 [facility] Connection, Find-A-Doc [facility] [place] [address] PCP - General 06/27/25 documented as of this encounter
--- OUTSIDE RECORDS SUMMARY | 2025-08-12 20:11 | XMS_ITS | Encounter Summary ---
Author Organization [employer] ([place], [place], [place], [place], [place]) Address [address] [place] [address] Care Team Providers Care Sound Cutter Name Role Phone Igor Meyers MD Primary Care Provider [phone] Provider, Not In System GAS ANALYST Primary Care Provid er Unavailable [facility], Find-A-Doc Primary Care Provider [facility], Find[facility]A-Doc Primary Care Provider [facility], Provider Not In The System Primary Care Provider Unavailable [facility], Find-A-Doc Primary Care Provider Encounter Details Date Type Department Care Team (Late st Contact Info) Description 11/21/2018 Transcribed Document [facility] [place] Family Medicine [facility] [place] [address] ProviderRufino MD [address] [place] [address] Social History Tobacco Use Types [...] Historical ProviderMD - 11/21/2018 5:00 AM CDT Height and Weight, Routine Entered On: 11/21/2018 6:44 EDT Performed On: 11/21/2018 5:00 EDT by Buddy Boyd Cna I Height and Weight, Routine Routine Weight Source : Standing scale Routine Weight Entry Format : [place] Routine Weight, Pounds : 198 lb Routine Weight, Ounces : 6 oz Routine Weight Calculation : 90.17 kg Height Source : Stated Height Entry Format : [place] Height, Feet : 4 ft Height, Inches : 11 Inch Clinical Height : 149.86 cm Body Surface Area (BSA), Routine : 1.84 m2 Body Mass Index (BMI), Routine : 40.15 kg/m2 Buddy Boyd Cna I - 11/21/2018 6:44 EDT Electronically signed by [facility], [facility] Conversion Prison Teacher Cerner at 12/10/2022 6:28 PM CDT documented in this encounter Plan of Treatment Not on file documented as of this encounter Visit Diagnoses Not on filedocumented in this encounter Care Teams Sound Cutter Relationship Specialty Start Date End Date Igor Meyers MD [address] [place], [place] [id number] PCP - General Family Medicine 11/23/22 08/22/23 Provider, Not In System, CHRISTIAN SALAZAR PCP - General 08/23/23 08/27/24 [facility], Find-A-Doc [facility] Find-a-Doc [place], [place] [id number] PCP - General 08/28/24 11/06/24 [facility], Find-A-Doc [facility] Find-a-Doc [place], [place] [id number] PCP - General 11/07/24 02/22/25 [facility], Provider Not In The System, [place] [address] PCP - General 02/23/25 06/26/25 [facility], Find-A-Doc [facility] Find-a-Doc [place], [place] [id number] PCP - General 06/27/25 documented as of this encounter
--- OUTSIDE RECORDS SUMMARY | 2025-08-12 20:11 | XMS_ITS | Encounter Summary ---
Author Organization [employer] ([place], [place], [place], [place], [place]) Address [address] [place] [address] Care Team Providers Care Angle Roll Operator Name Role Phone Igor Meyers MD Primary Care Provider [phone] Provider, Not In System PIPE OUT WORKER Primary Care Provid er Unavailable [facility], Find-A-Doc Primary Care Provider [facility], [facility]Doc Primary Care Provider [facility], Provider Not In The System Primary Care Provider Unavailable [facility], Find-A-Doc Primary Care Provider Encounter Details Date Type Department Care Team (Late st Contact Info) Description 04/24/2020 Transcribed Document [facility] [place] [facility] [place] [address] ProviderRufino MD [address] [place], [place] [...] Cerner Conversion Note - Rufino ProviderMD - 04/24/2020 12:11 AM CDT ED Assessment Entered On: 04/24/2020 0:23 EDT Performed On: 04/24/2020 0:21 EDT by RAZ ADLER RN ED Quick Look Assessment Level of Consciousness : Alert, Awake Affect/Behavior : Appropriate, Calm, Cooperative RAZ ADLER RN - 04/24/2020 0:21 EDT ED General-Functional Assess Information Obtained From : Patient Preferred Communication Mode : Verbal Communication Barrier : None Primary Language : [place] Zealander Any Spiritual/Cultural Needs or Requests : No Currently in Unsafe Situation : No RAZ ADLER RN - 04/24/2020 0:21 EDT Social Habits Smoking Status : Never (less than 100 in lifetime; none in last 30 days) Smokeless Tobacco Status : Never Desires Tobacco Cessation Calc : 0 RAZ ADLER RN - 04/24/2020 0:21 EDT Social History (As Of: 04/24/2020 00:23:07 EDT) Tobacco: Smoking Status Never smoker. (Last [...] 08/12/2014 20:30:08 EST by Sheryl Burnett, DENZEL) EENT Assessment EENT Assessment WDL : WDL RAZ ADLER RN - 04/24/2020 0:21 EDT Cardiovascular ASMT, ED Cardiovascular Assessment WDL : WDL with exceptions (Comment: patient complains of chest pain since 8pm yesterday [RAZ ADLER RN - 04/24/2020 0:21 EDT] ) RAZ ADLER RN - 04/24/2020 0:21 EDT Respiratory Respiratory Assessment WDL : WDL RAZ ADLER RN - 04/24/2020 0:21 EDT Breath Sounds Assessment Grid All Lobes Breath Sounds : Clear EVAN : Clear LLL : Clear RUL : Clear RML : Clear RLL : Clear RAZ ADLER RN - 04/24/2020 0:21 EDT Gastrointestinal ED Gastrointestinal Assessment WDL : WDL with exceptions (Comment: complains of nausea after starting a new prescriptions for angina [RAZ ADLER RN - 04/24/2020 0:21 EDT] ) Gastrointestinal Symptoms : Nausea RAZ ADLER RN - 04/24/2020 0:21 EDT Genitourinary Assessment, ED Genitourinary Assessment WDL : RAZ BAEZ RN - 04/24/2020 0:21 EDT Musculoskeletal Musculoskeletal Assessment WDL : GABRIELAL RAZ ADLER RN - 04/24/2020 0:21 EDT Integumentary Assessment Integumentary Assessment WDL : GABRIELAL RAZ ADLER RN - 04/24/2020 0:21 EDT Neurologic ASMT, ED Neurologic Assessment WDL : WDL Neurological Symptoms : None Level of Consciousness : Alert, Awake Affect/Behavior : Appropriate, Calm, Cooperative Orientation : Oriented x 4 RAZ ADLER RN - 04/24/2020 0:21 EDT Electronically signed by [facility], [facility] Conversion Estimator Binding Cerner at 12/10/2022 6:38 PM CDT documented in this encounter Plan of Treatment Not on file documented as of this encounter Visit Diagnoses Not on filedocumented in this encounter Care Teams Angle Roll Operator Relationship Specialty Start Date End Date Igor Meyers MD [address] [place] [address] PCP - General Family Medicine 11/23/22 08/22/23 Provider, Not In System, CHRISTIAN SALAZAR PCP - General 08/23/23 08/27/24 [facility], Find-A-Doc [facility] [place] [address] PCP - General 08/28/24 11/06/24 [facility], Find-A-Doc [facility] [place] [address] PCP - General 11/07/24 02/22/25 [facility], Provider Not In The System[place] [address] PCP - General 02/23/25 06/26/25 [facility], Find-A-Doc [facility] Find-a-Doc [place], [place] [id number] PCP - General 06/27/25 documented as of this encounter
--- OUTSIDE RECORDS SUMMARY | 2025-08-12 20:11 | XMS_ITS | Encounter Summary ---
Author Organization [employer] ([place], [place], [place], [place], [place]) Address [address] [place] [address] Care Team Providers Care Chainstitch Sewing Machine Operator Name Role Phone Igor Meyers MD Primary Care Provider [phone] Provider, Not In System CLERICAL ASSOCIATE Primary Care Provid er Unavailable [facility] Connection, Find-A-Doc Primary Care Provider [facility], Find-A-Doc Primary Care Provider [facility], Provider Not In The System Primary Care Provider Unavailable [facility] Connection, Find-A-Doc Primary Care Provider Encounter Details Date Type Department Care Team (Late st Contact Info) Description 11/21/2018 Transcribed Document [facility] [place] [facility] [place] [address] ProviderRufino MD [address] [place] [address] Social History Tobacco Use Types Packs/Day Years Used Date Smoking Tobacco: Never Assessed Comments Unknown Sex and Gender Information Value Date Recorded Sex Assigned at Not on file Legal Sex Female 1:33 PM CDT Gender Identity Not on file Sexual Orientation Not on file documented as of this encounter Miscellaneous Notes * Cerner Conversion Note - Rufino ProviderMD - 11/21/2018 2:00 AM CDT Ladle Repairman Details Entered On: 11/21/2018 5:17 EDT Performed On: 11/21/2018 2:00 EDT by Francia Mckeon RN Order Details Order Detail : 0 IV Order Detail : 1 Oxygen Order Detail : 0 Nurse Collect Order Detail : 0 Lift/Transfer : Independent Central Line Order Detail : No Room Service : Appropriate Arterial Line : No Francia Mckeon, RN - 11/21/2018 5:17 EDT Electronically signed by Alph[facility] Conversion Half Section Ironer Cerner at 12/10/2022 6:27 PM CDT documented in this encounter Plan of Treatment Not on file documented as of this encounter Visit Diagnoses Not on filedocumented in this encounter Care Teams Chainstitch Sewing Machine Operator Relationship Specialty Start Date End Date Igor Meyers MD [address] [place] [address] PCP - General Family Medicine 11/23/22 08/22/23 Provider, Not In System, CLERICAL ASSOCIATE [place] PCP - General 08/23/23 08/27/24 [facility] Connection, Find-A-Doc [facility] [place] [address] PCP - General 08/28/24 11/06/24 [facility] Connection, Find-A-Doc [facility] [place] [address] PCP - General 11/07/24 02/22/25 [facility], Provider Not In The System, [place] [address] PCP - General 02/23/25 06/26/25 [facility] Connection, Find-A-Doc [facility] [place] [address] PCP - General 06/27/25 documented as of this encounter
--- OUTSIDE RECORDS SUMMARY | 2025-08-12 20:11 | XMS_ITS | Encounter Summary ---
Author Organization [employer] ([place], [place], [place], [place], [place]) Address [address] [place] [address] Care Team Providers Care Grocery Store Bagger Name Role Phone Igor Meyers MD Primary Care Provider [phone] Provider, Not In System ASSISTANT CHIEF NURSING OFFICER Primary Care Provid er Unavailable [facility] Connection, Find-A-Doc Primary Care Provider [facility], Find[facility]A-Doc Primary Care Provider [facility], Provider Not In The System Primary Care Provider Unavailable [facility] Connection, Find-A-Doc Primary Care Provider Encounter Details Date Type Department Care Team (Late st Contact Info) Description 06/20/2020 Transcribed Document [facility] [place] [address] [place] [address] ProviderRufino MD [address] [place] [address] Social History Tobacco Use Types Packs/Day Years Used Date Smoking Tobacco: Never Assessed Comments Unknown Sex and Gender Information Value Date Recorded Sex Assigned at Not on file Legal Sex Female 1:33 PM CDT Gender Identity Not on file Sexual Orientation Not on file documented as of this encounter Miscellaneous Notes * Cerner Conversion Note - Historical ProviderMD - 06/20/2020 1:02 PM CDT CR Chest 1 Vw Portable Ordered: 06/20/2020 Modified Reason for Exam: cp 06/20/2020 12:51 06/20/2020 13:02 (AKASH HOBBS, ASSISTANT CHIEF NURSING OFFICER-EMR) Reviewed by Provider, No further action required x1 documented in this encounter Plan of Treatment Not on file documented as of this encounter Visit Diagnoses Not on filedocumented in this encounter Care Teams Grocery Store Bagger Relationship Specialty Start Date End Date Igor Meyers MD [address] [place] [address] PCP - General Family Medicine 11/23/22 08/22/23 Provider, Not In System, CHRISTIAN SALAZAR PCP - General 08/23/23 08/27/24 [facility] Connection, Find-A-Doc [facility] Find-a-Doc [place], [place] [id number] PCP - General 08/28/24 11/06/24 [facility] Connection, Find-A-Doc [facility] [place] [address] PCP - General 11/07/24 02/22/25 [facility], Provider Not In The System, [place] [address] PCP - General 02/23/25 06/26/25 [facility] Connection, Find-A-Doc [facility] [place] [address] PCP - General 06/27/25 documented as of this encounter
--- OUTSIDE RECORDS SUMMARY | 2025-08-12 20:11 | XMS_ITS | Encounter Summary ---
Author Organization [employer] ([place], [place], [place], [place], [place]) Address [address] [place] [address] Care Team Providers Care Legislative Analyst Name Role Phone Igor Meyers MD Primary Care Provider [phone] Provider, Not In System OTR HAZMAT COMPANY DRIVER Primary Care Provid er Unavailable [facility] Connection, Find-A-Doc Primary Care Provider [facility], Find-A-Doc Primary Care Provider [facility], Provider Not In The System Primary Care Provider Unavailable [facility] Connection, Find-A-Doc Primary Care Provider Encounter Details Date Type Department Care Team (Late st Contact Info) Description 05/08/2020 Transcribed Document [facility] [place] Family [place] [facility] [place] [address] ProviderRufino MD [address] [place] [address] Social History Tobacco Use Types Packs/Day Years Used Date Smoking Tobacco: Never Assessed Comments Unknown Sex and Gender Information Value Date Recorded Sex Assigned at Not on file Legal Sex Female 1:33 PM CDT Gender Identity Not on file Sexual Orientation Not on file documented as of this encounter Miscellaneous Notes * Cerner Conversion Note - Historical ProviderMD - 05/08/2020 3:59 PM CDT [place] Suicide Severity Rating Scale (C-SSRS) Entered On: 05/08/2020 18:47 EDT Performed On: 05/08/2020 18:47 EDT by YAZAN ELI, DENZEL [place] Suicide Severity Rating Scale (C-SSRS) CSSRS Past Month Wish to be : No CSSRS Past Month Suicidal Thoughts : No CSSRS Lifetime Suicide Behavior : No Suicide Severity Rating Score : 0 Suicide Severity Rating : No Additional Care Required at this time YAZAN ELI, RN - 05/08/2020 18:47 EDT Electronically signed by Alphonse [facility] Conversion Portrait Painter Cerner at 12/10/2022 6:33 PM CDT documented in this encounter Plan of Treatment Not on file documented as of this encounter Visit Diagnoses Not on filedocumented in this encounter Care Teams Legislative Analyst Relationship Specialty Start Date End Date Igor Meyers MD [address] [place] [address] PCP - General Family Medicine 11/23/22 08/22/23 Provider, Not In System, CHRISTIAN SALAZAR PCP - General 08/23/23 08/27/24 [facility] Connection, Find-A-Doc [facility] [place] [place] [address] PCP - General 08/28/24 11/06/24 [facility] Connection, Find-A-Doc [facility] [place] [address] PCP - General 11/07/24 02/22/25 [facility], Provider Not In The System[place] [address] PCP - General 02/23/25 06/26/25 [facility] Connection, Find-A-Doc [facility] [place] [address] PCP - General 06/27/25 documented as of this encounter
--- OUTSIDE RECORDS SUMMARY | 2025-08-12 20:11 | XMS_ITS | Encounter Summary ---
Author Organization [employer] ([place], [place], [place], [place], [place]) Address [address] [place] [address] Care Team Providers Care Choir Teacher Name Role Phone Igor Meyers MD Primary Care Provider [phone] Provider, Not In System MAIL CALLER Primary Care Provid er Unavailable [facility] Connection, Find-A-Doc Primary Care Provider [facility], Find-A-Doc Primary Care Provider [facility], Provider Not In The System Primary Care Provider Unavailable [facility] Connection, Find-A-Doc Primary Care Provider Encounter Details Date Type Department Care Team (Late st Contact Info) Description 04/08/[address] [facility] Radiology [address] [place] [address] Niranjan Eng MD [address] [place] [address] Dept[place] [address] Social History Tobacco Use Types Packs/Day Years Used Date Smoking Tobacco: Never Assessed Comments Unknown Sex and Gender Information Value Date Recorded Sex Assigned at Not on file Legal Sex Female 1:33 PM CDT Gender Identity Not on file Sexual Orientation Not on file documented as of this encounter Miscellaneous Notes * Cerner Conversion Note - Niranjan Eng MD - 04/08/2019 1:47 AM EDT Electronically signed by [facility] Conversion Extract Mixer Cerner at 12/10/2022 6:39 PM CDT documented in this encounter Plan of Treatment Not on file documented as of this encounter Visit Diagnoses Not on filedocumented in this encounter Care Teams Choir Teacher Relationship Specialty Start Date End Date Igor Meyers MD [address] [place] [address] PCP - General Family Medicine 11/23/22 08/22/23 Provider, Not In System, CHRISTIAN SALAZAR PCP - General 08/23/23 08/27/24 [facility] Connection, Find-A-Doc [facility] Find-a-Doc [place], [place] [id number] PCP - General 08/28/24 11/06/24 [facility] Connection, Find-A-Doc [facility] Find-a-Doc [place], [place] [id number] PCP - General 11/07/24 02/22/25 [facility], Provider Not In The System, [place] [address] PCP - General 02/23/25 06/26/25 [facility] Connection, Find-A-Doc [facility] Find-a-Doc [place], [place] [id number] PCP - General 06/27/25 documented as of this encounter
--- OUTSIDE RECORDS SUMMARY | 2025-08-12 20:11 | XMS_ITS | Encounter Summary ---
Author Organization [employer] ([place], [place], [place], [place], [place]) Address [address] [place] [address] Care Team Providers Care Senior Center Director Name Role Phone Igor Meyers MD Primary Care Provider [phone] Provider, Not In System EMERGENCY ROOM CLINICIAN Primary Care Provid er Unavailable [facility] Connection, Find-A-Doc Primary Care Provider [facility] Connection, [facility]A-Doc Primary Care Provider [facility], Provider Not In The System Primary Care Provider Unavailable [facility] Connection, Find-A-Doc Primary Care Provider Encounter Details Date Type Department Care Team (Late st Contact Info) Description 04/08/2019 Transcribed Document [facility] [place] Family [place] [facility] [place] [address] ProviderRufino MD [address] [place] [address] Social History Tobacco Use Types Packs/Day Years Used Date Smoking Tobacco: Never Assessed Comments Unknown Sex and Gender Information Value Date Recorded Sex Assigned at Not on file Legal Sex Female 1:33 PM CDT Gender Identity Not on file Sexual Orientation Not on file documented as of this encounter Miscellaneous Notes * Cerner Conversion Note - Historical ProviderMD - 04/08/2019 1:57 AM CDT [address] [address] ROBERTO RANDLE :1960 Visit Time:04/07/2019 Your Visit Summary Your Care Team Admitting Physician - EDMUND RUVALCABA DO-EMR LEANNE, UNKNOWN Attending Physician - EDMUND RUVALCABA, DO-EMR Primary Care Physician - ABRAHAM LAYNE (REF)MD Referring Physician - LEANNE, SELF REFERRED Your Diagnosis Chest pain Chest pain at rest Medical Information You may obtain a copy [...] do next Follow-Up Appointments Follow Up with JED ROSALES When Within 2 to 3 days Comments Call in the AM, return if any new or worsening apin other than the atypical chest pain discussed here with bronchial/copd/atelectasis findings. Where: [address] [place] [address] Business (1) Follow Up with ABRAHAM (REF) XI When Within 2 to 3 days Where: [address] [place] [address] Business (1) Allergies sulfADIAZINE (itching) sulfonamides (Rash, Itching) Immunizations This Visit No Immunizations Found Medications What How Much When Instructions Next Dose New acetaminophen-hydrocodone ([place] 5 mg-325 mg oral tablet) 1 Tablet(s) Oral Three Times A Day as needed for for pain Duration: 2 Day(s) Printed Prescription New albuterol (albuterol CFC free 90 mcg/ inh inhalation aerosol with adapter) 2 Puff(s) Inhalation Four Times A Day Printed Prescription New predniSONE (predniSONE 10 mg oral tablet) See instructions 3 Tab mg Oral Daily for 1 days, 2 tabs for 1 days, then 1 tab for 2 days, taper over 6 days. Printed Prescription The home medications listed are [...] This Visit (last charted value for your 04/07/2019 visit) Hematology 04/07/19 23:09:00 WBC: 11.9 K/uL -- Normal range between ( 3.9 and 10.0 ) RBC: 4.38 Million/uL -- Normal range between ( 3.93 and 5.22 ) Hct: 38.0 % -- Normal range between ( 34.1 and 44.9 ) Hgb: 12.8 Gram/dL -- Normal range between ( 11.2 and 15.7 ) Platelet Count: 261 K/uL -- Normal range between ( 163 and 369 ) MCH: 29.2 pg -- Normal range between ( 25.6 and 32.2 ) MCHC: 33.7 Gram/dL -- Normal range between ( 32.3 and 36.5 ) MCV: 86.8 fL -- Normal range between ( 79.0 and 94.8 ) Slide Review: No RDW: 13.5 % -- Normal range between ( 11.6 and 14.4 ) MPV: 10.0 fL -- Normal range between ( 9.4 and 12.4 ) General Chemistry 04/07/19 23:09:00 Creatinine Level: 0.54 mg/dL -- Normal range between ( 0.55 and 1.02 ) Sodium Level: 138 mmol/L -- Normal range between ( 136 and 146 ) Potassium Level: 3.7 mmol/L -- Normal range between ( 3.5 and 5.1 ) Chloride Level: 105 mmol/L -- Normal range between ( 102 and 112 ) Carbon Dioxide Level: 25 mmol/L -- Normal range between ( 21 and 32 ) Anion Gap: 12 -- Normal range between ( 9 and 20 ) Bilirubin Total: 0.2 mg/dL -- Normal range between ( 0.2 and 1.3 ) A/G Ratio: 1.1 -- Normal range between ( 1.1 and 2.5 ) ALT: 27 Units/Liter -- Normal range between ( 12 and 78 ) AST: 17 Units/Liter -- Normal range between ( 5 and 37 ) Globulin: 3.2 Gram/dL -- Normal range between ( 1.5 and 4.5 ) Alk Phos: 76 Units/Liter -- Normal range between ( 27 and 136 ) Bun/Creatinine: 22.2 -- Normal range between ( 8.0 and 20.0 ) Calcium Level: 8.9 mg/dL -- Normal range between ( 8.5 and 10.1 ) eGFR : >60 mL/min/1.73m2 eGFR NonAfrican: >60 mL/min/1.73m2 Glucose Level: 191 mg/dL -- Normal range between ( 74 and 106 ) Blood Urea Nitrogen: 12 mg/dL -- Normal range between ( 7 and 22 ) Protein Total: 6.8 Gram/dL -- Normal range between ( 6.4 and 8.2 ) Albumin Level: 3.6 Gram/dL -- Normal range between ( 3.4 and 5.0 ) Cardiac Specific Markers 04/07/19 23:09:00 Troponin I Ultra: <0.015 ng/mL -- Normal range between ( 0.015 and 0.045 ) ProBNP: 60 pg/mL -- Normal range between ( 0 and 125 ) Coagulation 04/07/19 23:09:00 D Dimer Quant: 490 ng/mL Education Materials Nonspecific Chest Pain Chest pain [...] you start to feel better. ??? Take [id number] and prescription medicines only as told by [...] 05/23/2006 Document Revised: 05/07/2017 Document Reviewed: 05/07/2017 [employer] Interactive Patient Education ?? 2019 [employer] Emergency Awareness and Preventative Care STROKE [...] Assistance with quitting is available by contacting 7-371-LMIU-NOW. This is a free resource providing counseling, support, and referral. Or you may contact your personal physician. [employer] Suicide Prevention Lifeline: The National Suicide Prevention [...] was given the opportunity to ask questions. Patient/Filter Tank Tender Helper Head Name: Patient/Filter Tank Tender Helper Head Signature: Relationship to Patient: Clinician/Hospital Filter Tank Tender Helper Head Signature: Please Provide a Telephone Number Where You Can Be Reached: Is it Permissible To Leave a Message? Date: Electronically signed by [facility], [facility] Conversion Warehouse Shipper Cerner at 12/10/2022 6:44 PM CDT documented in this encounter Plan of Treatment Not on file documented as of this encounter Visit Diagnoses Not on filedocumented in this encounter Care Teams Senior Center Director Relationship Specialty Start Date End Date Igor Meyers MD [address] [place] [address] PCP - General Family Medicine 11/23/22 08/22/23 Provider, Not In System, CHRISTIAN SALAZAR PCP - General 08/23/23 08/27/24 [facility] Connection, Find-A-Doc [facility] Connection [place] [address] PCP - General 08/28/24 11/06/24 [facility] Connection, Find-A-Doc [facility] Connection [place] [address] PCP - General 11/07/24 02/22/25 [facility], Provider Not In The System, [address] [place] [address] PCP - General 02/23/25 06/26/25 [facility] Connection, Find-A-Doc [facility] Connection [place] [address] PCP - General 06/27/25 documented as of this encounter
--- OUTSIDE RECORDS SUMMARY | 2025-08-12 20:11 | XMS_ITS | Encounter Summary ---
Author Organization [employer] ([place], [place], [place], [place], [place]) Address [address] [place] [address] Care Team Providers Care Design Engineer Name Role Phone Igor Meyers MD Primary Care Provider [phone] Provider, Not In System EDGER RUNNER Primary Care Provid er Unavailable [facility] Connection, Find-A-Doc Primary Care Provider [facility] Connection, Find-A-Doc Primary Care Provider [facility], Provider Not In The System Primary Care Provider Unavailable [facility] Connection, Find-A-Doc Primary Care Provider Encounter Details Date Type Department Care Team (Late st Contact Info) Description 02/14/2019 Transcribed Document [facility] [facility] [place] [facility] [place] [address] ProviderRufino MD [address] [place] [address] Social History Tobacco Use Types [...] ProviderMD - 02/14/2019 8:58 PM CDT ED Triage Entered On: 02/14/2019 21:08 EDT Performed On: 02/14/2019 21:03 EDT by LAWRENCE YING RN ED Triage Across the Room Triage Date/Time : 02/14/2019 21:03 EDT LAWRENCE YING RN - 02/14/2019 21:03 EDT Chief Complaint : patient brought in per [facility] ems- c/o chest pain-mid chestv area started an hour ago; paijn at 04/05; also c/o SOA all; 2 ntg SL taken by patient at home; resp even and non-labored; denies coughing; EKG done; LAWRENCE YING RN - 02/14/2019 21:10 EDT LAWRENCE YING RN - 02/14/2019 21:10 EDT DCP GENERIC CODE Tracking Group : [facility] Tracking Acuity : 2 - Emergent LAWRENCE YING RN - 02/14/2019 21:03 EDT Need Lab Labels Now : No Mode of Arrival : Stretcher Transported to ED by : Ambulance/ALS EMS Service : [facility] To Room Via : Stretcher Accompanied By : Unaccompanied ED Vital Signs : Document Height & Weight : Document ED Allergies : Document ED Reason for Visit : Document Tetanus Immunization : Less than 5 years LAWRENCE YING RN - 02/14/2019 21:03 EDT Infectious Disease History Infectious Disease History : Chicken pox/Shingles, Herpes, Measles, Mumps Fever/Chills Last 48 Hours : No Travel To Regions with Travel Advisories : No Travel Outside [place] Within Last 30 Days : No Contact With Traveler to Advisory Region : No Tuberculosis Symptoms : None LAWRENCE YING RN - 02/14/2019 21:03 EDT Vital Signs ED Temperature Source : Oral Temperature Mode : Fahrenheit Temperature, Fahrenheit : 97.4 Deg F ED Pain : Yes Clinical Temperature, C : 36.3 Deg C Oxygen Therapy Mode : Room air Peripheral Pulse Rate : 69 bpm Respiratory Rate : 20 Breaths/Min Blood Pressure Location : Arm, right upper Blood Pressure Source : Non-Invasive BP Device Systolic Blood Pressure : 141 mmHg (HI) Diastolic Blood Pressure : 66 mmHg Oxygen Saturation : 99 % LAWRENCE YING RN - 02/14/2019 21:03 EDT Allergy (As Of: 02/14/2019 21:08:20 EDT) Allergies (Active) sulfADIAZINE Estimated Onset Date: Unspecified ; Reactions: itching ; Created By: Ella Phelan Rn; Reaction Status: Active ; Category: Drug ; Substance: sulfADIAZINE ; Type: Allergy ; Severity: Severe ; Updated By: Ella Phelan Rn; Reviewed Date: 02/14/2019 21:05 EDT sulfonamides Estimated Onset Date: Unspecified ; Reactions: Itching, Rash ; Created By: Diana Michel, Pharmacist-Resident; Reaction Status: Active ; Category: Drug ; Substance: sulfonamides ; Type: Allergy ; Severity: Moderate ; Updated By: Diana Michel, Pharmacist-Resident; Source: Patient ; Reviewed Date: 02/14/2019 21:05 EDT Diagnosis Control ED (As Of: 02/14/2019 21:08:20 EDT) Problems(Active) Apnea, sleep (SNOMED CT :127271536 ) Name of Problem: Apnea, sleep ; Recorder: Sheryl Burnett RN; Confirmation: Confirmed ; Classification: Patient Stated ; Code: [id number] ; Contributor System: [employer] ; Last Updated: 08/12/2014 20:25 EST ; Life Cycle Date: 08/12/2014 ; Life Cycle Status: Active ; Vocabulary: SNOMED CT Chronic CHF (SNOMED CT :490087985 ) Name of Problem: Chronic CHF ; Recorder: Sheryl Burnett RN; Confirmation: Confirmed ; Classification: Patient Stated ; Code: 564193484 ; Contributor System: [employer] ; Last Updated: 08/12/2014 20:25 EST ; Life Cycle Date: 08/12/2014 ; Life Cycle Status: Active ; Vocabulary: SNOMED CT COPD (chronic obstructive pulmonary disease) with emphysema (SNOMED CT :705731425 ) Name of Problem: COPD (chronic obstructive pulmonary disease) with emphysema ; Recorder: Sheryl Burnett RN; Confirmation: Confirmed ; Classification: Patient Stated ; Code: [id number] ; Contributor System: Power[employer] ; Last Updated: 08/12/2014 20:25 EST ; Life Cycle Date: 08/12/2014 ; Life Cycle Status: Active ; Vocabulary: SNOMED CT Diabetes (SNOMED CT :861159409 ) Name of Problem: Diabetes ; Recorder: Sheryl Burnett RN; Confirmation: Confirmed ; Classification: Patient Stated ; Code: 058669613 ; Contributor System: [employer] ; Last Updated: 08/12/2014 20:24 EST ; Life Cycle Date: 08/12/2014 ; Life Cycle Status: Active ; Vocabulary: SNOMED CT Genital herpes (SNOMED CT :06647752 ) Name of Problem: Genital herpes ; Recorder: Sheryl Burnett RN; Confirmation: Confirmed ; Classification: Patient Stated ; Code: 57808336 ; Contributor System: PowerChart ; Last Updated: 08/12/2014 20:25 EST ; Life Cycle Date: 08/12/2014 ; Life Cycle Status: Active ; Vocabulary: SNOMED CT History of obstructive sleep apnea (IMO :17617868 ) Name of Problem: History of obstructive sleep apnea ; Recorder: SYSTEM, SYSTEM; Confirmation: Confirmed ; Classification: Medical ; Code: 30760848 ; Last Updated: 03/07/2018 10:59 EDT ; Life Cycle Date: 03/07/2018 ; Life Cycle Status: Active ; Vocabulary: IMO HTN (hypertension) (SNOMED CT :8147648799 ) Name of Problem: HTN (hypertension) ; Recorder: Sheryl Burnett RN; Confirmation: Confirmed ; Classification: Patient Stated ; Code: [id number] ; Contributor System: [employer] ; Last Updated: 08/12/2014 20:24 EST ; Life Cycle Date: 08/12/2014 ; Life Cycle Status: Active ; Vocabulary: SNOMED CT Hydrocephalus (SNOMED CT :446303399 ) Name of Problem: Hydrocephalus ; Recorder: Sheryl Burnett RN; Confirmation: Confirmed ; Classification: Patient Stated ; Code: 483114064 ; Contributor System: PowerChart ; Last Updated: 08/12/2014 20:24 EST ; Life Cycle Date: 08/12/2014 ; Life Cycle Status: Active ; Vocabulary: SNOMED CT Hyperlipemia (SNOMED CT :39492554 ) Name of Problem: Hyperlipemia ; Recorder: Sheryl Burnett RN; Confirmation: Confirmed ; Classification: Patient Stated ; Code: 37299606 ; Contributor System: PowerChart ; Last Updated: 08/12/2014 20:24 EST ; Life Cycle Date: 08/12/2014 ; Life Cycle Status: Active ; Vocabulary: SNOMED CT Myocardial infarction (SNOMED CT :27797152 ) Name of Problem: Myocardial infarction ; Recorder: Sheryl Burnett RN; Confirmation: Confirmed ; Classification: Patient Stated ; Code: 22614989 ; Contributor System: PowerChart ; Last Updated: 08/12/2014 20:25 EST ; Life Cycle Date: 08/12/2014 ; Life Cycle Status: Active ; Vocabulary: SNOMED CT Diagnoses(Active) Chest pain Date: 02/14/2019 ; Diagnosis Type: Reason For Visit ; Confirmation: Complaint of ; Clinical Dx: Chest pain ; Classification: Medical ; Clinical Service: Emergency medicine ; Code: PNED ; Probability: 0 ; Diagnosis Code: [id number] ED Height and Weight Height Source : Measured Height Entry Format : Seibert Height, Feet : 4 ft(Converted to: 122 cm, 48 Inch) Height, Inches : 11 Inch(Converted to: 0 ft 11 Inch, 27.94 cm) Clinical Height : 149.86 cm Weight Source, ED : Standing scale Weight Entry Format : Seibert Weight, Pounds : 210 lb Clinical Dosing Weight : 95.45 kg Body Surface Area (BSA) : 1.88 m2 Body Mass Index : 42.5 kg/m2 (>HHI) Adger Body Weight (IBW) : 42.87 kg LAWRENCE YING RN - 02/14/2019 21:03 EDT Pain Assessment Pain Assessment : Initial assessment Pain Scale Used : 0-10 Scale Location : Chest Quality : Aching LAWRENCE YING RN - 02/14/2019 21:03 EDT Pain Scale Intensity : 8 LAWRENCE YING RN - 02/14/2019 21:03 EDT Image 4 - Images currently included in the form version of this document have not been included in the text rendition version of the form. ED Influenza/Pneumoccocal Vaccine Influenza Immunization, Current Season : Yes Previous Vaccines from Immunization Schedule : No qualifying data available. LAWRENCE YING RN - 02/14/2019 21:03 EDT Electronically signed by Alph[facility] Conversion Vp Director Of Finance Cerner at 12/10/2022 6:39 PM CDT documented in this encounter Plan of Treatment Not on file documented as of this encounter Visit Diagnoses Not on filedocumented in this encounter Care Teams Design Engineer Relationship Specialty Start Date End Date Igor Meyers MD [address] [place] [address] PCP - General Family Medicine 11/23/22 08/22/23 Provider, Not In System, CHRISTIAN SALAZAR PCP - General 08/23/23 08/27/24 [facility] Connection, Find-A-Doc [facility] [place] [address] PCP - General 08/28/24 11/06/24 [facility] Connection, [facility]Doc [facility] [place] [address] PCP - General 11/07/24 02/22/25 [facility], Provider Not In The System, [address] [place] [address] PCP - General 02/23/25 06/26/25 [facility] Connection, Find-A-Doc [facility] [place] [address] PCP - General 06/27/25 documented as of this encounter
--- OUTSIDE RECORDS SUMMARY | 2025-08-12 20:11 | XMS_ITS | Encounter Summary ---
Author Organization [employer] ([place], [place], [place], [place], [place]) Address [address] [place] [address] Care Team Providers Care Podiatric Foot And Ankle Specialist Name Role Phone Igor Meyers MD Primary Care Provider [phone] Provider, Not In System TRAINING AND DEVELOPMENT SPECIALIST Primary Care Provid er Unavailable [facility] Connection, Find-A-Doc Primary Care Provider [facility] Connection, Find[facility]A-Doc Primary Care Provider [facility], Provider Not In The System Primary Care Provider Unavailable [facility] Connection, Find-A-Doc Primary Care Provider Encounter Details Date Type Department Care Team (Late st Contact Info) Description 11/21/2018 Transcribed Document [facility] [place] [address] [place] [address] ProviderRufino MD [address] [place] [address] Social History Tobacco Use Types Packs/Day [...] Historical ProviderMD - 11/21/2018 10:[address] [facility] Entered On: 11/21/2018 10:31 EDT Performed On: 11/21/2018 10:28 EDT by CARLOS PHILIPPE, PT [facility] Physical Therapy Screen : 1 CARLOS PHILIPPE, PT - 11/21/2018 10:30 EDT documented in this encounter Plan of Treatment Not on file documented as of this encounter Visit Diagnoses Not on filedocumented in this encounter Care Teams Podiatric Foot And Ankle Specialist Relationship Specialty Start Date End Date Igor Meyers MD [address] [place] [address] PCP - General Family Medicine 11/23/22 08/22/23 Provider, Not In System, CHRISTIAN SALAZAR PCP - General 08/23/23 08/27/24 [facility] Connection, [facility]Doc [facility] [place] [address] PCP - General 08/28/24 11/06/24 [facility] Connection, Find-A-Doc [facility] [place] [address] PCP - General 11/07/24 02/22/25 [facility], Provider Not In The System[place] [address] PCP - General 02/23/25 06/26/25 [facility] Connection, Find[facility]A-Doc [facility] [place] [address] PCP - General 06/27/25 documented as of this encounter
--- OUTSIDE RECORDS SUMMARY | 2025-08-12 20:11 | XMS_ITS | Encounter Summary ---
Author Organization [employer] ([place], [place], [place], [place], [place]) Address [address] [place] [address] Care Team Providers Care Registered Nurse Surgical Services Name Role Phone Igor Meyers MD Primary Care Provider [phone] Provider, Not In System CHIEF SALES OFFICER Primary Care Provid er Unavailable [facility] Connection, Find-A-Doc Primary Care Provider [facility] Connection, [facility]-A-Doc Primary Care Provider [facility], Provider Not In The System Primary Care Provider Unavailable [facility] Connection, Find-A-Doc Primary Care Provider Encounter Details Date Type Department Care Team (Late st Contact Info) Description 11/21/2018 Transcribed Document [facility] [address] [place] [address] ProviderRufino MD [address] [place] [address] Social History Tobacco Use Types Packs/Day Years Used Date Smoking Tobacco: Never Assessed Comments Unknown Sex and Gender Information Value Date Recorded Sex Assigned at Not on file Legal Sex Female 1:33 PM CDT Gender Identity Not on file Sexual Orientation Not on file documented as of this encounter Miscellaneous Notes * Cerner Conversion Note - Rufino ProviderMD - 11/21/2018 11:17 AM CDT Patient Education Materials Follows:Medicine Angina Pectoris Angina pectoris, often called angina, is extreme discomfort in the chest, neck, or arm. This is caused by a lack of blood in the middle and thickest layer of the heart wall (myocardium). There are four types of angina: ??? Stable angina. Stable angina usually occurs in episodes of predictable frequency and duration. It is usually brought on by physical activity, stress, or excitement. Stable angina usually lasts a few minutes and can often be relieved by a medicine that you place under your tongue. This medicine is called sublingual nitroglycerin. ??? Unstable angina. Unstable angina can occur even when you are doing little or no physical activity. It can even occur while you are sleeping or when you are at rest. It can suddenly increase in severity or frequency. It may not be relieved by sublingual nitroglycerin, and it can last up to 30 minutes. ??? Microvascular angina. This type of angina is caused by a disorder of tiny blood vessels called arterioles. Microvascular angina is more common in women. The pain may be more severe and last longer than other types of angina pectoris. ??? Prinzmetal or variant angina. This type of angina pectoris is rare and usually occurs when you are doing little or no physical activity. It especially occurs in the paint mixer hours. What are the causes? Atherosclerosis is the cause of angina. This is the buildup of fat and cholesterol (plaque) on the inside of the arteries. Over time, the plaque may narrow or block the artery, and this will lessen blood flow to the heart. Plaque can also become weak and break off within a coronary artery to form a clot and cause a sudden blockage. What increases the risk? Risk factors common to both men and women include: ??? High cholesterol levels. ??? High blood pressure (hypertension). ??? Tobacco use. ??? Diabetes. ??? Family history of angina. ??? Obesity. ??? Lack of exercise. ??? A diet high in saturated fats. Women are at greater risk for angina if they are: ??? Over age 55. ??? Postmenopausal. What are the signs or symptoms? Many people do not experience any symptoms during the early stages of angina. As the condition progresses, symptoms common to both men and women may include: ??? Chest pain. ? The pain can be described as a crushing or squeezing in the chest, or a tightness, pressure, fullness, or heaviness in the chest. ? The pain can last more than a few minutes, or it can stop and recur. ??? Pain in the arms, neck, jaw, or back. ??? Unexplained heartburn or indigestion. ??? Shortness of breath. ??? Nausea. ??? Sudden cold sweats. ??? Sudden light-headedness. Many women have chest discomfort and some of the other symptoms. However, women often have different (atypical) symptoms, such as: ??? Fatigue. ??? Unexplained feelings of nervousness or anxiety. ??? Unexplained weakness. ??? Dizziness or fainting. Sometimes, women may have angina without any symptoms. How is this diagnosed? Tests to diagnose angina may include: ??? ECG (electrocardiogram). ??? Exercise stress test. This looks for signs of blockage when the heart is being exercised. ??? Pharmacologic stress test. This test looks for signs of blockage when the heart is being stressed with a medicine. ??? Blood tests. ??? Coronary angiogram. This is a procedure to look at the coronary arteries to see if there is any blockage. How is this treated? The treatment of angina may include the following: ??? Healthy behavioral changes to reduce or control risk factors. ??? Medicine. ??? Coronary stenting.?A stent helps to keep an artery open. ??? Coronary angioplasty. This procedure widens a narrowed or blocked artery. ??? Coronary artery?bypass surgery. This will allow your blood to pass the blockage (bypass) to reach your heart. Follow these instructions at home: ??? Take medicines only as directed by your health care provider. ??? Do nottake the following medicines unless your health care provider approves: ? Nonsteroidal anti-inflammatory drugs (NSAIDs), such as ibuprofen, naproxen, or celecoxib. ? Vitamin supplements that contain vitamin A, vitamin E, or both. ? Hormone replacement therapy that contains estrogen with or without progestin. ??? Manage other health conditions such as hypertension and diabetes as directed by your health care provider. ??? Follow a heart-healthy diet. A dietitian can help to educate you about healthy food options and changes. ??? Use healthy cooking methods such as roasting, grilling, broiling, baking, poaching, steaming, or stir-frying. Talk to a dietitian to learn more about healthy cooking methods. ??? Follow an exercise program approved by your health care provider. ??? Maintain a healthy weight. Lose weight as approved by your health care provider. ??? Plan rest periods when fatigued. ??? Learn to manage stress. ??? Do notuse any tobacco products, including cigarettes, chewing tobacco, or electronic cigarettes. If you need help quitting, ask your health care provider. ??? If you drink alcohol, and your health care provider approves, limit your alcohol intake to no more than 1 drink per day. One drink equals 12 ounces of beer, 5 ounces of wine, or 1? ounces of hard liquor. ??? Stop illegal drug use. ??? Keep all follow-up visits as directed by your health care provider. This is important. Get help right away if: ??? You have pain in your chest, neck, arm, jaw, stomach, or back that lasts more than a few minutes, is recurring, or is unrelieved by taking sublingual?nitroglycerin. ??? You have profuse sweating without cause. ??? You have unexplained: ? Heartburn or indigestion. ? Shortness of breath or difficulty breathing. ? Nausea or vomiting. ? Fatigue. ? Feelings of nervousness or anxiety. ? Weakness. ? Diarrhea. ??? You have sudden light-headedness or dizziness. ??? You faint. These symptoms may represent a serious problem [...] care provider. Document Released: 08/13/2006 Document Revised: 01/24/2017 Document Reviewed: 12/15/2014 [employer] Patient Education ? 2017 [employer] Orth[employer]ics Chest Wall Pain Introduction Chest wall pain is pain in or around the bones and muscles of your chest. Sometimes, an injury causes this pain. Sometimes, the cause may not be known. This pain may take several weeks or longer to get better. Follow these instructions at home: Pay attention to any changes in your symptoms. Take these actions to help with your pain: ??? Rest as told by your doctor. ??? Avoid activities that cause pain. Try not to use your chest, belly (abdominal), or side muscles to lift heavy things. ??? If directed, apply ice to the painful area:? Put ice in a plastic bag. ? Place a towel between your skin and the bag. ? Leave the ice on for 20 minutes, 2?3 times per day. ??? Take jhcw-fox-qxetrrh and prescription medicines only as told by your doctor. ??? Do notuse tobacco products, including cigarettes, chewing tobacco, and e-cigarettes. If you need help quitting, ask your doctor. ??? Keep all follow-up visits as told by your doctor. This is important. Contact a doctor if: ??? You have a fever. ??? Your chest pain gets worse. ??? You have new symptoms. Get help right away if: ??? You feel sick to your stomach (nauseous) or you throw up (vomit). ??? You feel sweaty or light-headed. ??? You have a cough with phlegm (sputum) or you cough up blood. ??? You are short of breath. This information is not intended to replace advice given to you by your health care provider. Make sure you discuss any questions you have with your health care provider. Document Released: 01/29/2009 Document Revised: 01/18/2017 Document Reviewed: 11/08/2015 ? 2017 [employer] documented in this encounter Plan of Treatment Not on file documented as of this encounter Visit Diagnoses Not on filedocumented in this encounter Care Teams Registered Nurse Surgical Services Relationship Specialty Start Date End Date Igor Meyers MD [address] [place] [address] PCP - General Family Medicine 11/23/22 08/22/23 Provider, Not In System, CHRISTIAN SALAZAR PCP - General 08/23/23 08/27/24 [facility] Adan Find-A-Doc [facility] [place] [address] PCP - General 08/28/24 11/06/24 [facility]an Find-A-Doc [facility] [place] [address] PCP - General 11/07/24 02/22/25 [facility], Provider Not In The System, [place] [address] PCP - General 02/23/25 06/26/25 [facility] Connection, Find-A-Doc [facility] [place] [address] PCP - General 06/27/25 documented as of this encounter
--- OUTSIDE RECORDS SUMMARY | 2025-08-12 20:11 | XMS_ITS | Encounter Summary ---
Author Organization [employer] ([place], [place], [place], [place], [place]) Address [address] [place] [address] Care Team Providers Care Wood Pole Treater Name Role Phone Igor Meyers MD Primary Care Provider [phone] Provider, Not In System [employer] Primary Care Provid er Unavailable [facility] Connection, Find-A-Doc Primary Care Provider [facility] Connection, Find-A-Doc Primary Care Provider [facility], Provider Not In The System Primary Care Provider Unavailable [facility] Connection, Find-A-Doc Primary Care Provider Encounter Details Date Type Department Care Team (Late st Contact Info) Description 02/15/2019 Transcribed Document [facility] Family Medicine [address] [place] [address] ProviderRufino MD [address] [place] [address] Social History Tobacco Use Types Packs/Day Years Used Date Smoking Tobacco: Never Assessed Comments Unknown Sex and Gender Information Value Date Recorded Sex Assigned at Not on file Legal Sex Female 1:33 PM CDT Gender Identity Not on file Sexual Orientation Not on file documented as of this encounter Miscellaneous Notes * Cerner Conversion Note - Historical ProviderMD - 02/15/2019 10:15 AM CDT CR Chest 1 Vw Portable Ordered: 02/14/2019 Modified Reason for Exam: pneumonia 02/14/2019 23:41 02/15/2019 10:15 (ABIMAEL PATHAK PA-C) Reviewed by Provider, No further action required x1 documented in this encounter Plan of Treatment Not on file documented as of this encounter Visit Diagnoses Not on filedocumented in this encounter Care Teams Wood Pole Treater Relationship Specialty Start Date End Date Igor Meyers MD [address] [place] [address] PCP - General Family Medicine 11/23/22 08/22/23 Provider, Not In System, CHRISTIAN SALAZAR PCP - General 08/23/23 08/27/24 [facility] Connection, Find-A-Doc [facility] [place] [address] PCP - General 08/28/24 11/06/24 [facility] Connection, Find-A-Doc [facility] [place] [address] PCP - General 11/07/24 02/22/25 [facility], Provider Not In The System, [address] [place] [address] PCP - General 02/23/25 06/26/25 [facility] Connection, Find[facility]A-Doc [facility] [place] [address] PCP - General 06/27/25 documented as of this encounter
--- OUTSIDE RECORDS SUMMARY | 2025-08-12 20:11 | XMS_ITS | Encounter Summary ---
Author Organization [employer] ([place], [place], [place], [place], [place]) Address [address] [place] [address] Care Team Providers Care Roller Mechanic Name Role Phone Igor Meyers MD Primary Care Provider [phone] Provider, Not In System MEDICAL TRANSCRIPTIONIST Primary Care Provid er Unavailable [facility] Connection, Find-A-Doc Primary Care Provider [facility], Find-A-Doc Primary Care Provider [facility], Provider Not In The System Primary Care Provider Unavailable [facility] Connection, Find-A-Doc Primary Care Provider Encounter Details Date Type Department Care Team (Late st Contact Info) Description 04/07/2019 Transcribed Document [facility] [place] [facility] [place] [address] ProviderRufino MD [address] [place] [address] Social History Tobacco Use Types Packs/Day Years Used Date Smoking Tobacco: Never Assessed Comments Unknown Sex and Gender Information Value Date Recorded Sex Assigned at Not on file Legal Sex Female 1:33 PM CDT Gender Identity Not on file Sexual Orientation Not on file documented as of this encounter Miscellaneous Notes * Cerner Conversion Note - Rufino ProviderMD - 04/07/2019 10:30 PM CDT ED Triage Entered On: 04/07/2019 22:36 EDT Performed On: 04/07/2019 22:33 EDT by KAIT HERNANDEZ DIE MAKER APPRENTICE Triage Across the Room Triage Date/Time : 04/07/2019 22:33 EDT Chief Complaint : Pt. co Left sided Chest pain that began at 830 tonight while sitting down. pt reports SOA and nausea. pt is calm alert skinpwd. Pt given KAIT HERNANDEZ RN - 04/07/2019 22:33 EDT DCP GENERIC CODE Tracking Acuity : 2 - Emergent Tracking Group : [facility] KAIT HERNANDEZ RN - 04/07/2019 22:33 EDT Mode of Arrival : Ambulatory Transported to ED by : Private vehicle To Room Via : Ambulate Accompanied By : Unaccompanied ED Vital Signs : Document Height & Weight : Document ED Allergies : Document ED Reason for Visit : Document Tetanus Immunization : Less than 5 years KAIT HERNANDEZ RN - 04/07/2019 22:33 EDT Infectious Disease History Infectious Disease History : Chicken pox/Shingles, Herpes, Measles, Mumps Fever/Chills Last 48 Hours : No Travel To Regions with Travel Advisories : No Travel Outside [place] Within Last 30 Days : No Contact With Traveler to Advisory Region : No Tuberculosis Symptoms : None KAIT HERNANDEZ RN - 04/07/2019 22:33 EDT Vital Signs ED Temperature Source : Oral Temperature Mode : Fahrenheit Temperature, Fahrenheit : 98.9 Deg F ED Pain : Yes Clinical Temperature, C : 37.2 Deg C Oxygen Therapy Mode : Room air Peripheral Pulse Rate : 92 bpm Respiratory Rate : 18 Breaths/Min Systolic Blood Pressure : 148 mmHg (HI) Diastolic Blood Pressure : 78 mmHg Oxygen Saturation : 96 % KAIT HERNANDEZ RN - 04/07/2019 22:33 EDT Allergy (As Of: 04/07/2019 22:36:23 EDT) Allergies (Active) sulfADIAZINE Estimated Onset Date: Unspecified ; Reactions: itching ; Created By: Ella Phelan Rn; Reaction Status: Active ; Category: Drug ; Substance: sulfADIAZINE ; Type: Allergy ; Severity: Severe ; Updated By: Ella Phelan Rn; Reviewed Date: 04/07/2019 22:35 EDT sulfonamides Estimated Onset Date: Unspecified ; Reactions: Itching, Rash ; Created By: Diana Michel, Pharmacist-Resident; Reaction Status: Active ; Category: Drug ; Substance: sulfonamides ; Type: Allergy ; Severity: Moderate ; Updated By: Diana Michel, Pharmacist-Resident; Source: Patient ; Reviewed Date: 04/07/2019 22:35 EDT Diagnosis Control ED (As Of: 04/07/2019 22:36:23 EDT) Problems(Active) Apnea, sleep (SNOMED CT :601563637 ) Name of Problem: Apnea, sleep ; Recorder: Sheryl Burnett RN; Confirmation: Confirmed ; Classification: Patient Stated ; Code: [id number] ; Contributor System: [employer] MobileChart ; Last Updated: 08/12/2014 20:25 EST ; Life Cycle Date: 08/12/2014 ; Life Cycle Status: Active ; Vocabulary: SNOMED CT Chronic CHF (SNOMED CT :110486700 ) Name of Problem: Chronic CHF ; Recorder: Sheryl Burnett RN; Confirmation: Confirmed ; Classification: Patient Stated ; Code: [id number] ; Contributor System: PowerChart ; Last Updated: 08/12/2014 20:25 EST ; Life Cycle Date: 08/12/2014 ; Life Cycle Status: Active ; Vocabulary: SNOMED CT COPD (chronic obstructive pulmonary disease) with emphysema (SNOMED CT :312844770 ) Name of Problem: COPD (chronic obstructive pulmonary disease) with emphysema ; Recorder: Sheryl Burnett RN; Confirmation: Confirmed ; Classification: Patient Stated ; Code: [id number] ; Contributor System: [employer] MobileChart ; Last Updated: 08/12/2014 20:25 EST ; Life Cycle Date: 08/12/2014 ; Life Cycle Status: Active ; Vocabulary: SNOMED CT Diabetes (SNOMED CT :979400264 ) Name of Problem: Diabetes ; Recorder: Sheryl Burnett RN; Confirmation: Confirmed ; Classification: Patient Stated ; Code: [id number] ; Contributor System: PowerChart ; Last Updated: 08/12/2014 20:24 EST ; Life Cycle Date: 08/12/2014 ; Life Cycle Status: Active ; Vocabulary: SNOMED CT Genital herpes (SNOMED CT :56064558 ) Name of Problem: Genital herpes ; Recorder: Sheryl Burnett RN; Confirmation: Confirmed ; Classification: Patient Stated ; Code: [id number] ; Contributor System: [employer] MobileChart ; Last Updated: 08/12/2014 20:25 EST ; Life Cycle Date: 08/12/2014 ; Life Cycle Status: Active ; Vocabulary: SNOMED CT History of obstructive sleep apnea (IMO :87567750 ) Name of Problem: History of obstructive sleep apnea ; Recorder: SYSTEM, SYSTEM; Confirmation: Confirmed ; Classification: Medical ; Code: [id number] ; Last Updated: 03/07/2018 10:59 EDT ; Life Cycle Date: 03/07/2018 ; Life Cycle Status: Active ; Vocabulary: IMO HTN (hypertension) (SNOMED CT :8681086407 ) Name of Problem: HTN (hypertension) ; Recorder: Sheryl Burnett RN; Confirmation: Confirmed ; Classification: Patient Stated ; Code: [id number] ; Contributor System: [employer] MobileChart ; Last Updated: 08/12/2014 20:24 EST ; Life Cycle Date: 08/12/2014 ; Life Cycle Status: Active ; Vocabulary: SNOMED CT Hydrocephalus (SNOMED CT :332729336 ) Name of Problem: Hydrocephalus ; Recorder: Sheryl Burnett RN; Confirmation: Confirmed ; Classification: Patient Stated ; Code: 113790239 ; Contributor System: [employer] ; Last Updated: 08/12/2014 20:24 EST ; Life Cycle Date: 08/12/2014 ; Life Cycle Status: Active ; Vocabulary: SNOMED CT Hyperlipemia (SNOMED CT :12876871 ) Name of Problem: Hyperlipemia ; Recorder: Sheryl Burnett RN; Confirmation: Confirmed ; Classification: Patient Stated ; Code: 61657575 ; Contributor System: [employer] MobileChart ; Last Updated: 08/12/2014 20:24 EST ; Life Cycle Date: 08/12/2014 ; Life Cycle Status: Active ; Vocabulary: SNOMED CT Myocardial infarction (SNOMED CT :71465917 ) Name of Problem: Myocardial infarction ; Recorder: Sheryl Burnett RN; Confirmation: Confirmed ; Classification: Patient Stated ; Code: 26773647 ; Contributor System: [employer] MobileChart ; Last Updated: 08/12/2014 20:25 EST ; Life Cycle Date: 08/12/2014 ; Life Cycle Status: Active ; Vocabulary: SNOMED CT Diagnoses(Active) Chest pain Date: 04/07/2019 ; Diagnosis Type: Reason For Visit ; Confirmation: Complaint of ; Clinical Dx: Chest pain ; Classification: Medical ; Clinical Service: Emergency medicine ; Code: PNED ; Probability: 0 ; Diagnosis Code: [id number] ED Height and Weight Height Source : Measured Height Entry Format : [place] Height, Feet : 4 ft(Converted to: 122 cm, 48 Inch) Height, Inches : 11 Inch(Converted to: 0 ft 11 Inch, 27.94 cm) Clinical Height : 149.86 cm Weight Source, ED : Standing scale Weight Entry Format : [place] Weight, Pounds : 210 lb Clinical Dosing Weight : 95.45 kg Body Surface Area (BSA) : 1.88 m2 Body Mass Index : 42.5 kg/m2 (>HHI) [place] Body Weight (IBW) : 42.87 kg KAIT HERNANDEZ RN - 04/07/2019 22:33 EDT Pain Assessment Pain Assessment : Initial assessment Pain Scale Used : 0-10 Scale KAIT HERNANDEZ RN - 04/07/2019 22:33 EDT Pain Scale Intensity : 8 KAIT HERNANDEZ RN - 04/07/2019 22:33 EDT Image 4 - Images currently included in the form version of this document have not been included in the text rendition version of the form. Electronically signed by [facility], [facility] Conversion Gasoline Engine Inspector Cerner at 12/10/2022 6:33 PM CDT documented in this encounter Plan of Treatment Not on file documented as of this encounter Visit Diagnoses Not on filedocumented in this encounter Care Teams Roller Mechanic Relationship Specialty Start Date End Date Igor Meyers MD [address] [place] [address] PCP - General Family Medicine 11/23/22 08/22/23 Provider, Not In System, CHRISTIAN SALAZAR PCP - General 08/23/23 08/27/24 [facility] Connection, Find-A-Doc [facility] Find-a-Doc [place], [place] [id number] PCP - General 08/28/24 11/06/24 [facility] Connection, Find-A-Doc [facility] Find-a-Doc [place], [place] [id number] PCP - General 11/07/24 02/22/25 [facility], Provider Not In The System, [place] [address] PCP - General 02/23/25 06/26/25 [facility] Connection, Find[facility]A-Doc [facility] [place] [address] PCP - General 06/27/25 documented as of this encounter
--- OUTSIDE RECORDS SUMMARY | 2025-08-12 20:11 | XMS_ITS | Encounter Summary ---
Author Organization [employer] ([place], [place], [place], [place], [place]) Address [address] [place] [address] Care Team Providers Care Low Pressure Boiler Tender Name Role Phone Igor Meyers MD Primary Care Provider [phone] Provider, Not In System SURVEY DATA TECHNICIAN Primary Care Provid er Unavailable [facility], Find-A-Doc Primary Care Provider [facility], [facility]-Doc Primary Care Provider [facility], Provider Not In The System Primary Care Provider Unavailable [facility], Find-A-Doc Primary Care Provider Encounter Details Date Type Department Care Team (Late st Contact Info) Description 02/15/2019 Transcribed Document [facility] Family Medicine [facility] [place] [address] ProviderRufino MD [address] [place] [address] Social History Tobacco Use Types Packs/Day Years Used Date Smoking Tobacco: Never Assessed Comments Unknown Sex and Gender Information Value Date Recorded Sex Assigned at Not on file Legal Sex Female 1:33 PM CDT Gender Identity Not on file Sexual Orientation Not on file documented as of this encounter Miscellaneous Notes * Cerner Conversion Note - Rufino ProviderMD - 02/15/2019 2:36 AM CDT [address] [address] ROBERTO RANDLE :1960 Visit Time:02/14/2019 Your Visit Summary Your Care Team Admitting Physician - MARVIN ORTIZ MD-EMR Attending Physician - MARVIN ORTIZ MD-EMR Primary Care Physician - SALAZAR TRIPP (REF), -MED Referring Physician - LEANNE, SELF REFERRED Your Diagnosis Chest pain Musculoskeletal chest pain Patient Portal Reminder: Be sure to sign up for the My [facility] Emergency [facility] patient portal, which gives you 19/03 access to your medical information ??? including these discharge instructions ??? using your computer, smartphone, or tablet. Just go to [employer] to get started. Questions? Call . You may also obtain a copy of your Emergency Department [...] do next Follow-Up Appointments Follow Up with MARIELA KEARNS When Within 2 to [address] Kearns on Sunday for follow up Return any problem Take stool softeners with the pain pills Where: [address] [facility] [address] [place] [address]- Business (1) Follow Up with Follow up with primary care provider When Within 2 to 3 days Follow Up with [facility] When Within As needed Comments Patient stated she is currently established with Salazar Tripp. Feel free to contact our Patient Resource Center at [phone] for any future Physician scheduling needs. Follow Up with SALAZAR TRIPP When Within 2 to 3 days Where: [address] [place] [address]- Business (1) Allergies sulfADIAZINE (itching) sulfonamides (Itching, Rash) Immunizations This Visit No Immunizations Found Medications What How Much When Instructions Next Dose New acetaminophen-hydrocodone ([place] 7.5 mg-325 mg oral tablet) 1 Tablet(s) Oral Every 4 Hours as needed for for pain Duration: 3 Day(s) addictive, no driving, constipating Printed Prescription The home medications listed are [...] This Visit (last charted value for your 02/14/2019 visit) Hematology 02/14/19 21:49:00 WBC: 10.0 K/uL -- Normal range between ( 3.9 and 10.0 ) RBC: 4.74 Million/uL -- Normal range between ( 3.93 and 5.22 ) Hct: 42.0 % -- Normal range between ( 34.1 and 44.9 ) Hgb: 13.5 Gram/dL -- Normal range between ( 11.2 and 15.7 ) Platelet Count: 203 K/uL -- Normal range between ( 163 and 369 ) MCH: 28.5 pg -- Normal range between ( 25.6 and 32.2 ) MCHC: 32.1 Gram/dL -- Normal range between ( 32.3 and 36.5 ) MCV: 88.6 fL -- Normal range between ( 79.0 and 94.8 ) Slide Review: No Eos %: 2.2 % -- Normal range between ( 1.0 and 7.0 ) [place] #: 0.59 K/uL -- Normal range between ( 0.24 and 0.82 ) Eos #: 0.22 K/uL -- Normal range between ( 0.04 and 0.54 ) [place] %: 5.9 % -- Normal range between ( 4.7 and 12.5 ) Baso %: 0.5 % -- Normal range between ( 0.0 and 1.0 ) Baso #: 0.05 K/uL -- Normal range between ( 0.01 and 0.08 ) RDW: 14.3 % -- Normal range between ( 11.6 and 14.4 ) Neut %: 58.4 % -- Normal range between ( 34.0 and 71.0 ) Neut #: 5.82 K/uL -- Normal range between ( 1.56 and 6.13 ) Lymph %: 32.2 % -- Normal range between ( 19.3 and 53.0 ) Lymph #: 3.21 K/uL -- Normal range between ( 1.18 and 3.74 ) MPV: 12.0 fL -- Normal range between ( 9.4 and 12.4 ) IG#: 0 x10(3)/uL IG%: 1 % -- Normal range between ( 0 and 1 ) General Chemistry 02/14/19 21:49:00 Creatinine Level: 0.50 mg/dL -- Normal range between ( 0.55 and 1.02 ) Sodium Level: 138 mmol/L -- Normal range between ( 136 and 146 ) Potassium Level: 4.5 mmol/L -- Normal range between ( 3.5 and 5.1 ) Chloride Level: 107 mmol/L -- Normal range between ( 102 and 112 ) Carbon Dioxide Level: 22 mmol/L -- Normal range between ( 21 and 32 ) Anion Gap: 14 -- Normal range between ( 9 and 20 ) Bilirubin Total: 0.5 mg/dL -- Normal range between ( 0.2 and 1.3 ) A/G Ratio: 1.0 -- Normal range between ( 1.1 and 2.5 ) ALT: 25 Units/Liter -- Normal range between ( 12 and 78 ) AST: 28 Units/Liter -- Normal range between ( 5 and 37 ) Globulin: 3.5 Gram/dL -- Normal range between ( 1.5 and 4.5 ) Alk Phos: 78 Units/Liter -- Normal range between ( 27 and 136 ) Bun/Creatinine: 20.0 -- Normal range between ( 8.0 and 20.0 ) Calcium Level: 9.1 mg/dL -- Normal range between ( 8.5 and 10.1 ) eGFR : >60 mL/min/1.73m2 eGFR NonAfrican: >60 mL/min/1.73m2 Glucose Level: 78 mg/dL -- Normal range between ( 74 and 106 ) Magnesium Level: 1.8 mg/dL -- Normal range between ( 1.5 and 2.4 ) Blood Urea Nitrogen: 10 mg/dL -- Normal range between ( 7 and 22 ) Protein Total: 7.1 Gram/dL -- Normal range between ( 6.4 and 8.2 ) Albumin Level: 3.6 Gram/dL -- Normal range between ( 3.4 and 5.0 ) Cardiac Specific Markers 02/14/19 23:49:00 Troponin I Ultra: <0.015 ng/mL -- Normal range between ( 0.015 and 0.045 ) 02/14/19 21:49:00 ProBNP: 206 pg/mL -- Normal range between ( 0 and 125 ) Coagulation 02/14/19 21:49:00 D Dimer Quant: 510 ng/mL Endocrinology 02/14/19 21:49:00 Procalcitonin: <0.05 ng/mL -- Normal range between ( 0.00 and 0.05 ) Diagnostic Radiology 02/14/19 22:00:08 CR Chest 1 Vw Portable: CR Chest 1 Vw Portable Education Materials Chest Wall Pain Chest wall pain is pain in or [...] pain: ??? Rest as told by your health care provider. ??? Avoid activities that cause pain. These include any activities that use your chest muscles or your abdominal and side muscles to lift heavy items. ??? If directed, apply ice to the painful area: ? Put ice in a plastic bag. ? Place a towel between your skin and the bag. ? Leave the ice on for 20 minutes, 2???3 times per day. ??? Take jmis-cjt-glgtttv and prescription medicines only as told by your health care provider. ??? Do not use tobacco products, including cigarettes, chewing tobacco, and e-cigarettes. If you need help quitting, ask your health care provider. ??? Keep all follow-up visits as told by your health care provider. This is important. Contact a health care provider if: ??? You have a fever. ??? Your chest pain becomes worse. ??? You have new symptoms. Get help right away if: ??? You have nausea or vomiting. ??? You feel sweaty or light-headed. ??? You have a cough with phlegm (sputum) or you cough up blood. ??? You develop shortness of breath. This information is not intended to replace advice given to you by your health care provider. Make sure you discuss any questions you have with your health care provider. Document Released: 08/13/2006 Document Revised: 12/21/2016 Document Reviewed: 11/08/2015 [employer] Patient Education ?? 2019 [employer] Emergency Awareness and Preventative Care STROKE [...] Assistance with quitting is available by contacting 7-844-MYAZ-NOW. This is a free resource providing counseling, [...] was given the opportunity to ask questions. Patient/Regeneration Operator Name: Patient/Regeneration Operator Signature: Relationship to Patient: Clinician/Hospital Regeneration Operator Signature: Please Provide a Telephone Number Where You Can Be Reached: Is it Permissible To Leave a Message? Date: documented in this encounter Plan of Treatment Not on file documented as of this encounter Visit Diagnoses Not on filedocumented in this encounter Care Teams Low Pressure Boiler Tender Relationship Specialty Start Date End Date Igor Meyers MD [address] [place] [address] PCP - General Family Medicine 11/23/22 08/22/23 Provider, Not In System, CHRISTIAN SALAZAR PCP - General 08/23/23 08/27/24 [facility], Find-A-Doc [facility] Find-a-Doc [place], [place] [id number] PCP - General 08/28/24 11/06/24 [facility], [facility]Doc [facility] [place] [address] PCP - General 11/07/24 02/22/25 [facility], Provider Not In The System, [address] [place] [address] PCP - General 02/23/25 06/26/25 [facility], Find-A-Doc [facility] Find-a-Doc [place], [place] [id number] PCP - General 06/27/25 documented as of this encounter
--- OUTSIDE RECORDS SUMMARY | 2025-08-12 20:11 | XMS_ITS | Encounter Summary ---
Author Organization [employer] ([place], [place], [place], [place], [place]) Address [address] [place] [address] Care Team Providers Care Laboratory Technology Teacher Name Role Phone Igor Meyers MD Primary Care Provider [phone] Provider, Not In System RENAL DIETITIAN Primary Care Provid er Unavailable [facility], Find-A-Doc Primary Care Provider [facility], Find[facility]A-Doc Primary Care Provider [facility], Provider Not In The System Primary Care Provider Unavailable [facility], Find-A-Doc Primary Care Provider Encounter Details Date Type Department Care Team (Late st Contact Info) Description 04/24/[address] [facility] Radiology [address] [place] [address] Niranjan Eng MD [address] [place] [address] Dept. of [place] [address] Social History Tobacco Use Types Packs/Day Years Used Date Smoking Tobacco: Never Assessed Comments Unknown Sex and Gender Information Value Date Recorded Sex Assigned at Not on file Legal Sex Female 1:33 PM CDT Gender Identity Not on file Sexual Orientation Not on file documented as of this encounter Miscellaneous Notes * Cerner Conversion Note - Niranjan Eng MD - 04/24/2020 3:38 AM EDT Electronically signed by [facility] Conversion Track Moving Machine Operator Cerner at 12/10/2022 6:33 PM CDT documented in this encounter Plan of Treatment Not on file documented as of this encounter Visit Diagnoses Not on filedocumented in this encounter Care Teams Laboratory Technology Teacher Relationship Specialty Start Date End Date Igor Meyers MD [address] [place] [address] PCP - General Family Medicine 11/23/22 08/22/23 Provider, Not In System, CHRISTIAN SALAZAR PCP - General 08/23/23 08/27/24 [facility], Find[facility]A-Doc [facility] Find-a-Doc [place], [place] [id number] PCP - General 08/28/24 11/06/24 [facility], Find-A-Doc [facility] Find-a-Doc [place], [place] [id number] PCP - General 11/07/24 02/22/25 [facility], Provider Not In The System, [address] [place] [address] PCP - General 02/23/25 06/26/25 [facility], Find-A-Doc [facility] Find-a-Doc [place], [place] [id number] PCP - General 06/27/25 documented as of this encounter
--- OUTSIDE RECORDS SUMMARY | 2025-08-12 20:11 | XMS_ITS | Encounter Summary ---
Author Organization [employer] ([place], [place], [place], [place], [place]) Address [address] [place] [address] Care Team Providers Care Head Of Commission Department Name Role Phone Igor Meyers MD Primary Care Provider [phone] Provider, Not In System SPRING FORGER Primary Care Provid er Unavailable [facility], Find-A-Doc Primary Care Provider [facility], Find[facility]A-Doc Primary Care Provider [facility], Provider Not In The System Primary Care Provider Unavailable [facility], Find-A-Doc Primary Care Provider Encounter Details Date Type Department Care Team (Late st Contact Info) Description 06/20/2020 Transcribed Document [facility] [place] [address] ProviderRufino MD [address] [place] [address] Social History Tobacco Use Types Packs/Day Years Used Date Smoking Tobacco: Never Assessed Comments Unknown Sex and Gender Information Value Date Recorded Sex Assigned at Not on file Legal Sex Female 1:33 PM CDT Gender Identity Not on file Sexual Orientation Not on file documented as of this encounter Miscellaneous Notes * Cerner Conversion Note - Rufino ProviderMD - 06/20/2020 2:11 AM CDT Pain Assessment Entered On: 06/20/2020 4:34 EDT Performed On: 06/20/2020 2:35 EDT by Edith Jones Rn Intervention Information: morphine Performed by Edith Jones Rn on 06/20/2020 02:19:00 EDT morphine,4mg IV Push,Right Antecubit [place] Pain Assessment Pain Assessment : Follow-up assessment Pain Scale Used : 0-10 Scale Location : Chest, left Onset : Acute Edith Jones Rn - 06/20/2020 4:34 EDT Pain Scale Intensity : 6 Edith Jones Rn - 06/20/2020 4:34 EDT Image 4 - Images currently included in the form version of this document have not been included in the text rendition version of the form. documented in this encounter Plan of Treatment Not on file documented as of this encounter Visit Diagnoses Not on filedocumented in this encounter Care Teams Head Of Commission Department Relationship Specialty Start Date End Date Igor Meyers MD [address] [place] [address] PCP - General Family Medicine 11/23/22 08/22/23 Provider, Not In System, CHRISTIAN SALAZAR PCP - General 08/23/23 08/27/24 [facility], Find-A-Doc [facility] [place], [place] [id number] PCP - General 08/28/24 11/06/24 [facility], Find-A-Doc [facility] Find-a-Doc [place], [place] [id number] PCP - General 11/07/24 02/22/25 [facility], Provider Not In The System, [place] [address] PCP - General 02/23/25 06/26/25 [facility], Find-A-Doc [facility] Find-a-Doc [place], [place] [id number] PCP - General 06/27/25 documented as of this encounter
--- OUTSIDE RECORDS SUMMARY | 2025-08-12 20:11 | XMS_ITS | Encounter Summary ---
Author Organization [employer] ([place], [place], [place], [place], [place]) Address [address] [place] [address] Care Team Providers Care Car Wash Supervisor Name Role Phone Igor Meyers MD Primary Care Provider [phone] Provider, Not In System BEER RUNNER Primary Care Provid er Unavailable [facility], Find-A-Doc Primary Care Provider [facility], [facility]A-Doc Primary Care Provider [facility], Provider Not In The System Primary Care Provider Unavailable [facility], Find-A-Doc Primary Care Provider Encounter Details Date Type Department Care Team (Late st Contact Info) Description 04/08/2019 Transcribed Document [facility] [address] [place] [address] Niranjan Villar MD [facility] Dept[facility] of Emergency Medicine [place], [place] [id number] Social History Tobacco Use Types Packs/Day Years Used Date Smoking Tobacco: Never Assessed Comments Unknown Sex and Gender Information Value Date Recorded Sex Assigned at Not on file Legal Sex Female 1:33 PM CDT Gender Identity Not on file Sexual Orientation Not on file documented as of this encounter Miscellaneous Notes * Cerner Conversion Note - Niranjan Villar MD - 04/08/2019 1:47 AM EDT [facility] [address] [facility] [place] [address] PERSON INFORMATION Name ROBERTO RANDLE Age 58 Years 1960 Sex Female Language Macedonian PCP ABRAHAM LAYNE (REF) Marital Status Single Med Service Emergency Medicine Acct# Arrival 04/07/2019 22:30:00 Visit Reason Chest pain; SOA Acuity 2 - Emergent LOS 000 02:17 Depart Date: 00:00 AM Address: [address] [place] [id number] Comment: PROVIDER INFORMATION Provider Role Assigned Unassigned Jose Moss, hairmasters manager Nurse 04/07/2019 22:38:39 NIRANJAN VILLAR MD-EMR ED Physician 04/07/2019 22:38:56 DIAGNOSIS Chest pain at rest PHYS DOC NOTES VITALS INFORMATION Vital Sign Triage Latest Temp Source Oral Oral Temp Mode Fahrenheit Fahrenheit Temp Fahrenheit 98.9 Deg F 98.9 Deg F Temp Celsius 02 Sat 96 % 96 % Respiratory Rate 18 Breaths/Min 18 Breaths/Min Peripheral Pulse Rate 92 bpm 92 bpm Apical Heart Rate Blood Pressure 148 mmHg / 78 mmHg 148 mmHg / 78 mmHg Comment: MEDICAL INFORMATION Allergy Info: sulfADIAZINE; sulfonamides Medications: Comment: DISCHARGE INFORMATION Discharge Disposition: Discharge Location: PATIENT EDUCATION INFORMATION Instructions: Nonspecific Chest Pain Follow up: With: Address: When: [address] [place] [address] Business (1) Within 2 to 3 days Comments: Call in the AM, return if any new or worsening apin other than the atypical chest pain discussed here with bronchial/copd/atelectasis findings. With: Address: When: ABRAHAM (REF) [address] [place] [address] [place] (1) Within 2 to 3 days Comment: documented in this encounter Plan of Treatment Not on file documented as of this encounter Visit Diagnoses Not on filedocumented in this encounter Care Teams Car Wash Supervisor Relationship Specialty Start Date End Date Igor Meyers MD [address] [place] [address] PCP - General Family Medicine 11/23/22 08/22/23 Provider, Not In System, CHRISTIAN SALAZAR PCP - General 08/23/23 08/27/24 [facility], [facility] [place] [address] PCP - General 08/28/24 11/06/24 [facility], Find[facility]A-Doc [facility] Find-a-Doc [place], [place] [id number] PCP - General 11/07/24 02/22/25 [facility], Provider Not In The System, [address] [place] [address] PCP - General 02/23/25 06/26/25 [facility], Find-A-Doc [facility] [place] [address] PCP - General 06/27/25 documented as of this encounter
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
--- OUTSIDE RECORDS SUMMARY | 2025-08-12 20:11 | XMS_ITS | Encounter Summary ---
Author Organization [facility] ([place], [place], [place], [place], [place]) Address [address] [place] [address] Care Team Providers Care Machine Lacer Name Role Phone Igor Meyers MD Primary Care Provider [phone] Provider, Not In System BRAND AMBASSADOR PROMOTIONAL MODEL Primary Care Provid er Unavailable [facility], [facility]Doc Primary Care Provider [facility], [facility] Primary Care Provider [facility], Provider Not In The System Primary Care Provider Unavailable [facility] Connection, [facility]Doc Primary Care Provider Encounter Details Date Type Department Care Team (Late st Contact Info) Description 02/15/2019 Transcribed Document [facility] [place] [facility] [place] [address] ProviderRufino MD [address] [place] [address] Social History Tobacco Use Types Packs/Day Years Used Date Smoking Tobacco: Never Assessed Comments Unknown Sex and Gender Information Value Date Recorded Sex Assigned at Not on file Legal Sex Female 1:33 PM CDT Gender Identity Not on file Sexual Orientation Not on file documented as of this encounter Miscellaneous Notes * Cerner Conversion Note - Rufino ProviderMD - 02/15/2019 2:53 AM CDT ED Discharge Entered On: 02/15/2019 2:53 EDT Performed On: 02/15/2019 2:53 EDT by Rita Resendiz Rn Embedded Process Patient Disposition : Discharge Personal Belongings With Patient : Yes Patient Education Completed : Yes Teaching Evaluation : Verbalizes understanding IV Discontinued : Yes Nursing Documentation Completed : Yes Rita Resendiz Rn - 02/15/2019 2:53 EDT ED Discharge Discharge To : Home with ambulatory/outpatient follow-up Mode Of Departure : Ambulatory Accompanied By : Unaccompanied Discharge Instructions Reviewed With, Opportunity For Questions Given : Patient Prescriptions Given to Patient : Yes Number of Prescriptions Given : 1 Rita Resendiz Rn - 02/15/2019 2:53 EDT Electronically signed by [facility] Conversion Corporate Communications Manager Cerner at 12/10/2022 6:33 PM CDT documented in this encounter Plan of Treatment Not on file documented as of this encounter Visit Diagnoses Not on filedocumented in this encounter Care Teams Machine Lacer Relationship Specialty Start Date End Date Igor Meyers MD [address] [place] [id number] PCP - General Family Medicine 11/23/22 08/22/23 Provider, Not In System, CHRISTIAN SALAZAR PCP - General 08/23/23 08/27/24 [facility], [facility], [place] [id number] PCP - General 08/28/24 11/06/24 [facility], [facility] [place] [address] PCP - General 11/07/24 02/22/25 [facility], Provider Not In The System, [place] [address] PCP - General 02/23/25 06/26/25 [facility], [facility], [place] [id number] PCP - General 06/27/25 documented as of this encounter
--- OUTSIDE RECORDS SUMMARY | 2025-08-12 20:11 | XMS_ITS | Encounter Summary ---
Author Organization [employer] ([place], [place], [place], [place], [place]) Address [address] [place] [address] Care Team Providers Care Assistant Art Director Name Role Phone Igor Meyers MD Primary Care Provider [phone] Provider, Not In System CROCHETER HAND Primary Care Provid er Unavailable [facility] Connection, Find-A-Doc Primary Care Provider [facility] Connection, Find-A-Doc Primary Care Provider [facility], Provider Not In The System Primary Care Provider Unavailable [facility] Connection, Find-A-Doc Primary Care Provider Encounter Details Date Type Department Care Team (Late st Contact Info) Description 04/24/2020 Transcribed Document [facility] [place] [address] [place] [address] ProviderRufino MD [address] [place] [address] Social History Tobacco Use Types [...] ProviderMD - 04/24/2020 12:11 AM CDT ED Triage Entered On: 04/24/2020 0:16 EDT Performed On: 04/24/2020 0:13 EDT by RAZ ADLER, WASHER ENGINEER HELPER Triage Across the Room Chief Complaint : PATIENT PRESENTS PER EMS, REPORTS CHEST PAIN THAT STARTED AT 8PM THAT RADIATES TO HER BACK. RECIEVED 324MG ASA AND SL NITRO X3 MANAGING BROKER. COMPLAINS OF NAUSEA SECONDARY TO NEW MED FOR ANGINA Triage Date/Time : 04/24/2020 0:13 EDT RAZ ADLER RN - 04/24/2020 0:13 EDT DCP GENERIC CODE Tracking Acuity : 2 - Emergent Tracking Group : [facility] RAZ ADLER RN - 04/24/2020 0:13 EDT Mode of Arrival : Ambulatory Transported to ED by : Ambulance/ALS EMS Service : [facility] To Room Via : Stretcher Accompanied By : sales representative ED Vital Signs : Document Height & Weight : Document ED Allergies : Document ED Reason for Visit : Document Tetanus Immunization : Greater than 5 years RAZ ADLER RN - 04/24/2020 0:13 EDT Infectious Disease History Has the patient ever been tested for COVID-19? : No, Patient stated Does patient have symptoms of COVID-19? : No COVID19 Screening : No Experiencing Infectious Disease Symptoms : No symptoms Physical contact outside [place] in the last 30 days : No Infectious Disease History : Chicken pox/Shingles, Herpes, Measles, Mumps Tuberculosis Symptoms : None RAZ ADLER RN - 04/24/2020 0:13 EDT Vital Signs ED Temperature Source : Oral Temperature Mode : Fahrenheit Temperature, Fahrenheit : 98.2 Deg F ED Pain : Yes Clinical Temperature, C : 36.8 Deg C Oxygen Therapy Mode : Room air Peripheral Pulse Rate : 80 bpm Respiratory Rate : 16 Breaths/Min Blood Pressure Location : Arm, left upper Blood Pressure Source : Non-Invasive BP Device Systolic Blood Pressure : 161 mmHg (HI) Diastolic Blood Pressure : 78 mmHg Oxygen Saturation : 94 % RAZ ADLER RN - 04/24/2020 0:13 EDT Allergy (As Of: 04/24/2020 00:16:14 EDT) Allergies (Active) ibuprofen Estimated Onset Date: Unspecified ; Created By: Divina Lucas RN; Reaction Status: Active ; Category: Drug ; Substance: ibuprofen ; Type: Allergy ; Updated By: Divina Lucas RN; Reviewed Date: 04/13/2020 1:53 EDT sulfADIAZINE Estimated Onset Date: Unspecified ; Reactions: C/O: a swelling, itching ; Created By: Barb Barrientos RN; Reaction Status: Active ; Category: Drug ; Substance: sulfADIAZINE ; Type: Allergy ; Severity: Severe ; Updated By: Barb Barrientos RN; Reviewed Date: 04/13/2020 1:53 EDT sulfonamides Estimated Onset Date: Unspecified ; Reactions: Itching, Rash ; Created By: Diana Michel, Pharmacist-Resident; Reaction Status: Active ; Category: Drug ; Substance: sulfonamides ; Type: Allergy ; Severity: Moderate ; Updated By: Diana Michel, Pharmacist-Resident; Source: Patient ; Reviewed Date: 04/13/2020 1:53 EDT Diagnosis Control ED (As Of: 04/24/2020 00:16:14 EDT) Problems(Active) Apnea, sleep (SNOMED CT :084766380 ) Name of Problem: Apnea, sleep ; Recorder: Sheryl Burnett RN; Confirmation: Confirmed ; Classification: Patient Stated ; Code: [id number] ; Contributor System: PowerChart ; Last Updated: 08/12/2014 20:25 EST ; Life Cycle Date: 08/12/2014 ; Life Cycle Status: Active ; Vocabulary: SNOMED CT Chest pain (SNOMED CT :94328416 ) Name of Problem: Chest pain ; Recorder: WILBER BETTENCOURT PA; Confirmation: Confirmed ; Classification: Medical ; Code: 71601065 ; Contributor System: PowerChart ; Last Updated: 04/13/2020 16:52 EDT ; Life Cycle Date: 04/13/2020 ; Life Cycle Status: Active ; Responsible Provider: WILBER BETTENCOURT PA; Vocabulary: SNOMED CT Chronic CHF (SNOMED CT :098651775 ) Name of Problem: Chronic CHF ; Recorder: Sheryl Burnett RN; Confirmation: Confirmed ; Classification: Patient Stated ; Code: 627351377 ; Contributor System: PowerChart ; Last Updated: 08/12/2014 20:25 EST ; Life Cycle Date: 08/12/2014 ; Life Cycle Status: Active ; Vocabulary: SNOMED CT COPD (chronic obstructive pulmonary disease) with emphysema (SNOMED CT :824886261 ) Name of Problem: COPD (chronic obstructive pulmonary disease) with emphysema ; Recorder: Sheryl Burnett RN; Confirmation: Confirmed ; Classification: Patient Stated ; Code: 581604702 ; Contributor System: PowerChart ; Last Updated: 08/12/2014 20:25 EST ; Life Cycle Date: 08/12/2014 ; Life Cycle Status: Active ; Vocabulary: SNOMED CT Diabetes (SNOMED CT :515245947 ) Name of Problem: Diabetes ; Recorder: Sheryl Burnett RN; Confirmation: Confirmed ; Classification: Patient Stated ; Code: 590685670 ; Contributor System: DoppelgangerChart ; Last Updated: 08/12/2014 20:24 EST ; Life Cycle Date: 08/12/2014 ; Life Cycle Status: Active ; Vocabulary: SNOMED CT Genital herpes (SNOMED CT :45183684 ) Name of Problem: Genital herpes ; Recorder: Sheryl Bunrett RN; Confirmation: Confirmed ; Classification: Patient Stated ; Code: 91272840 ; Contributor System: PowerChart ; Last Updated: 08/12/2014 20:25 EST ; Life Cycle Date: 08/12/2014 ; Life Cycle Status: Active ; Vocabulary: SNOMED CT History of obstructive sleep apnea (IMO :96141040 ) Name of Problem: History of obstructive sleep apnea ; Recorder: SYSTEM, SYSTEM; Confirmation: Confirmed ; Classification: Medical ; Code: 75370144 ; Last Updated: 03/07/2018 10:59 EDT ; Life Cycle Date: 03/07/2018 ; Life Cycle Status: Active ; Vocabulary: IMO HTN (hypertension) (SNOMED CT :3669452359 ) Name of Problem: HTN (hypertension) ; Recorder: Sheryl Burnett RN; Confirmation: Confirmed ; Classification: Patient Stated ; Code: 5886871508 ; Contributor System: PowerChart ; Last Updated: 08/12/2014 20:24 EST ; Life Cycle Date: 08/12/2014 ; Life Cycle Status: Active ; Vocabulary: SNOMED CT Hydrocephalus (SNOMED CT :759497973 ) Name of Problem: Hydrocephalus ; Recorder: Sheryl Burnett RN; Confirmation: Confirmed ; Classification: Patient Stated ; Code: 628799811 ; Contributor System: PowerChart ; Last Updated: 08/12/2014 20:24 EST ; Life Cycle Date: 08/12/2014 ; Life Cycle Status: Active ; Vocabulary: SNOMED CT Hyperlipemia (SNOMED CT :05148613 ) Name of Problem: Hyperlipemia ; Recorder: Sheryl Burnett RN; Confirmation: Confirmed ; Classification: Patient Stated ; Code: 25290373 ; Contributor System: PowerChart ; Last Updated: 08/12/2014 20:24 EST ; Life Cycle Date: 08/12/2014 ; Life Cycle Status: Active ; Vocabulary: SNOMED CT Myocardial infarction (SNOMED CT :04852003 ) Name of Problem: Myocardial infarction ; Recorder: Sheryl Burnett RN; Confirmation: Confirmed ; Classification: Patient Stated ; Code: 63965524 ; Contributor System: [employer] ; Last Updated: 08/12/2014 20:25 EST ; Life Cycle Date: 08/12/2014 ; Life Cycle Status: Active ; Vocabulary: SNOMED CT Diagnoses(Active) Chest pain Date: 04/24/2020 ; Diagnosis Type: Reason For Visit ; Confirmation: Complaint of ; Clinical Dx: Chest pain ; Classification: Medical ; Clinical Service: Emergency medicine ; Code: PNED ; Probability: 0 ; Diagnosis Code: [id number] ED Height and Weight Height Source : Stated Height Entry Format : [place] Height, Feet : 4 ft(Converted to: 122 cm, 48 Inch) Height, Inches : 11 Inch(Converted to: 0 ft 11 Inch, 27.94 cm) Clinical Height : 149.86 cm Weight Source, ED : Standing scale Weight Entry Format : [place] Weight, Pounds : 190 lb Clinical Dosing Weight : 86.36 kg Body Surface Area (BSA) : 1.81 m2 Body Mass Index : 38.5 kg/m2 (HI) Ewing Body Weight (IBW) : 42.87 kg RAZ ADLER RN - 04/24/2020 0:13 EDT Pain Assessment Pain Assessment : Initial assessment Pain Scale Used : 0-10 Scale RAZ ADLER RN - 04/24/2020 0:13 EDT Pain Scale Intensity : 8 RAZ DALER RN - 04/24/2020 0:13 EDT Image 4 - Images currently included in the form version of this document have not been included in the text rendition version of the form. documented in this encounter Plan of Treatment Not on file documented as of this encounter Visit Diagnoses Not on filedocumented in this encounter Care Teams Assistant Art Director Relationship Specialty Start Date End Date Igor Meyers MD [address] [place] [address] VINNY Jasso [id number] PCP - General Family Medicine 11/23/22 08/22/23 Provider, Not In System, CHRISTIAN SALAZAR PCP - General 08/23/23 08/27/24 [facility] Connection, Find-A-Doc [facility] Find-a-Doc [place], [place] [id number] PCP - General 08/28/24 11/06/24 [facility] Connection, Find[facility]Doc [facility] [place] [address] PCP - General 11/07/24 02/22/25 [facility], Provider Not In The System, [place] [address] PCP - General 02/23/25 06/26/25 [facility] Connection, Find-A-Doc [facility] Find-a-Doc [place], [place] [id number] PCP - General 06/27/25 documented as of this encounter
--- OUTSIDE RECORDS SUMMARY | 2025-08-12 20:11 | XMS_ITS | Encounter Summary ---
Author Organization [employer] ([place], [place], [place], [place], [place]) Address [address] [place] [address] Care Team Providers Care Systems Protection Technician Name Role Phone Igor Meyers MD Primary Care Provider [phone] Provider, Not In System HOT STAMP OPERATOR Primary Care Provid er Unavailable [facility] Connection, Find-A-Doc Primary Care Provider [facility] Connection, Find-A-Doc Primary Care Provider [facility], Provider Not In The System Primary Care Provider Unavailable [facility] Connection, Find-A-Doc Primary Care Provider Encounter Details Date Type Department Care Team (Late st Contact Info) Description 04/07/[address] [facility] [place] [facility] by [facility] [place] [address] ProviderRufino MD [address] [place] [address] Social History Tobacco Use Types [...] ProviderMD - 04/07/2019 10:30 PM CDT ED Assessment Entered On: 04/08/2019 0:34 EDT Performed On: 04/08/2019 0:32 EDT by Jose Moss, manager site Quick Look Assessment Level of Consciousness : Alert, Awake Affect/Behavior : Appropriate, Calm, Cooperative Orientation : Oriented x 4 Skin Color : Other: wnl Skin Temperature : Warm Skin Description : Dry Jose Moss Rn - 04/08/2019 0:32 EDT ED General-Functional Assess Information Obtained From : Patient Preferred Communication Mode : Verbal Communication Barrier : None Primary Language : [place] Citizen Any Spiritual/Cultural Needs or Requests : No Currently in Unsafe Situation : No Jose Moss Rn - 04/08/2019 0:32 EDT Social Habits Smoking Status : Never (less than 100 in lifetime; none in last 30 days) Smokeless Tobacco Status : Never Desires Tobacco Cessation Calc : 0 Jose Moss Rn - 04/08/2019 0:32 EDT Social History (As Of: 04/08/2019 00:34:49 EDT) Tobacco: Smoking Status Never smoker. (Last [...] WDL with exceptions (Comment: patient complains of L sided CP that is sharp at 8/10 with N/V and reports vomitied 3 times. with no N/V noted in room. patient also complains of SOB with no resp distress at thist time [Jose Moss Rn - 04/08/2019 0:32 EDT] ) Cardiovascular Symptoms : Chest discomfort at rest Heart Rhythm : Regular Capillary Refill, Left Hand : Less than/Equal to (</=) 2 seconds Capillary Refill, Right Hand : Less than/Equal to (</=) 2 seconds Clubbing Present : No Heart Sounds : S1/S2 Jose Moss Rn - 04/08/2019 0:32 EDT Electronically signed by Alphonse [facility] Conversion Cigar Roller Cerner at 12/10/2022 6:38 PM CDT documented in this encounter Plan of Treatment Not on file documented as of this encounter Visit Diagnoses Not on filedocumented in this encounter Care Teams Systems Protection Technician Relationship Specialty Start Date End Date Igor Meyers MD [address] [place] [address] PCP - General Family Medicine 11/23/22 08/22/23 Provider, Not In System, CHRISTIAN SALAZAR PCP - General 08/23/23 08/27/24 [facility] Connection, Find-A-Doc [facility] Find-a-Doc [place], [place] [id number] PCP - General 08/28/24 11/06/24 [facility] Connection, Find-A-Doc [facility] [place] [address] PCP - General 11/07/24 02/22/25 [facility], Provider Not In The System, [place] [address] PCP - General 02/23/25 06/26/25 [facility] Connection, Find-A-Doc [facility] Find-a-Doc [place], [place] [id number] PCP - General 06/27/25 documented as of this encounter
--- OUTSIDE RECORDS SUMMARY | 2025-08-12 20:11 | XMS_ITS | Encounter Summary ---
Author Organization [employer] ([place], [place], [place], [place], [place]) Address [address] [place] [address] Care Team Providers Care Business Dean Name Role Phone Igor Meyers MD Primary Care Provider [phone] Provider, Not In System JANITORIAL SUPERVISOR Primary Care Provid er Unavailable [facility] [...] st Contact Info) Description 05/08/2020 Transcribed Document [facility] [place] [facility] [place] [address] ProviderRufino MD [address] [place] [address] Social History Tobacco Use Types Packs/Day Years Used Date Smoking Tobacco: Never Assessed Comments Unknown Sex and Gender Information Value Date Recorded Sex Assigned at Not on file Legal Sex Female 1:33 PM CDT Gender Identity Not on file Sexual Orientation Not on file documented as of this encounter Miscellaneous Notes * Cerner Conversion Note - Historical ProviderMD - 05/08/2020 6:46 PM CDT [address] [address] ROBERTO RADNLE :1960 Visit Time:05/08/2020 Your Visit Summary Your Care Team Primary Provider: AKASH HOBBS JANITORIAL SUPERVISOR-EMR Secondary Provider: Your Diagnosis Abscess Medical screening exam Wound reevaluation with or without suture removal Medical Information You may obtain a copy [...] do next Follow-Up Appointments Follow Up with [facility]- [phone] When Within 2 to 3 days Comments Meds as directed. Follow up with Derm. Return as needed. Allergies sulfADIAZINE (C/O: a swelling, itching) sulfonamides (Rash, Itching) ibuprofen Immunizations This Visit No Immunizations Found Medications What How Much When Instructions Next Dose doxycycline (doxycycline hyclate 100 mg oral capsule) 1 Capsule(s) Oral Two Times A Day Pickup at [facility] amLODIPine 5 Milligram(s) Oral Every Day atorvastatin [...] oral tablet) 1 Tablet(s) Oral At Bedtime Pharmacy Information [facility]: [address] [place] [address] [phone] The home medications listed are only as [...] This Visit (last charted value for your 05/08/2020 visit) No Laboratory or Other Results This Visit Education Materials Skin Abscess A skin abscess is an infected area on or under your skin that contains a collection of pus and other material. An abscess may also be called a furuncle, carbuncle, or boil. An abscess can occur in or on almost any part of your body. Some abscesses break open (rupture) on their own. Most continue to get worse unless they are treated. The infection can spread deeper into the body and eventually into your blood, which can make you feel ill. Treatment usually involves draining the abscess. What are the causes? An abscess occurs when germs, like bacteria, pass through your skin and cause an infection. This may be caused by: ??? A scrape or cut on your skin. ??? A puncture wound through your skin, including a needle injection or insect bite. ??? Blocked oil or sweat glands. ??? Blocked and infected hair follicles. ??? A cyst that forms beneath your skin (sebaceous cyst) and becomes infected. What increases the risk? This condition is more likely to develop in people who: ??? Have a weak body defense system (immune system). ??? Have diabetes. ??? Have dry and irritated skin. ??? Get frequent injections or use illegal IV drugs. ??? Have a foreign body in a wound, such as a splinter. ??? Have problems with their lymph system or veins. What are the signs or symptoms? Symptoms of this condition include: ??? A painful, firm bump under the skin. ??? A bump with pus at the top. This may break through the skin and drain. Other symptoms include: ??? Redness surrounding the abscess site. ??? Warmth. ??? Swelling of the lymph nodes (glands) near the abscess. ??? Tenderness. ??? A sore on the skin. How is this diagnosed? This condition may be diagnosed based on: ??? A physical exam. ??? Your medical history. ??? A sample of pus. This may be used to find out what is causing the infection. ??? Blood tests. ??? Imaging tests, such as an ultrasound, CT scan, or MRI. How is this treated? A small abscess that drains on its own may not need treatment. Treatment for larger abscesses may include: ??? Moist heat or heat pack applied to the area several times a day. ??? A procedure to drain the abscess (incision and drainage). ??? Antibiotic medicines. For a severe abscess, you may first get antibiotics through an IV and then change to antibiotics by mouth. Follow these instructions at home: Medicines ??? Take udfb-ior-nsgwzjy and prescription medicines only as told by your health care provider. ??? If you were prescribed an antibiotic medicine, take it as told by your health care provider. Do not stop taking the antibiotic even if you start to feel better. Abscess care ??? If you have an abscess that has not drained, apply heat to the affected area. Use the heat source that your health [...] to feel pain, heat, or cold. You may have a greater risk of getting burned. ??? Follow instructions from your health care provider about how to take care of your abscess. Make sure you: ? Cover the abscess with a bandage (dressing). ? Change your dressing or gauze as told by your health care provider. ? Wash your hands with soap and water before you change the dressing or gauze. If soap and water are not available, use hand power plant operations manager. ??? Check your abscess every day for signs of a worsening infection. Check for: ? More redness, swelling, or pain. ? More fluid or blood. ? Warmth. ? More pus or a bad smell. General instructions ??? To avoid spreading the infection: ? Do not share personal care items, towels, or hot tubs with others. ? Avoid making skin contact with other people. ??? Keep all follow-up visits as told by your health care provider. This is important. Contact a health care provider if you have: ??? More redness, swelling, or pain around your abscess. ??? More fluid or blood coming from your abscess. ??? Warm skin around your abscess. ??? More pus or a bad smell coming from your abscess. ??? A fever. ??? Muscle aches. ??? Chills or a general ill feeling. Get help right away if you: ??? Have severe pain. ??? See red streaks on your skin spreading away from the abscess. Summary ??? A skin abscess is an infected area on or under your skin that contains a collection of pus and other material. ??? A small abscess that drains on its own may not need treatment. ??? Treatment for larger abscesses may include having a procedure to drain the abscess and taking an antibiotic. This information is not intended to replace advice given to you by your health care provider. Make sure you discuss any questions you have with your health care provider. Document Released: 05/23/2006 Document Revised: 12/04/2019 Document Reviewed: 09/26/2018 [employer] Patient Education ?? 2020 [employer]. Emergency Awareness and Preventative Care STROKE is [...] Assistance with quitting is available by contacting 6-531-HWHQ-NOW. This is a free resource providing counseling, [...] was given the opportunity to ask questions. Patient/Plaster Maker Name: Patient/Plaster Maker Signature: Relationship to Patient: Clinician/Hospital Plaster Maker Signature: Please Provide a Telephone Number Where You Can Be Reached: Is it Permissible To Leave a Message? Date: documented in this encounter Plan of Treatment Not on file documented as of this encounter Visit Diagnoses Not on filedocumented in this encounter Care Teams Business Dean Relationship Specialty Start Date End Date Igor Meyers MD [address] [place] [address] VINNY Jasso [address] PCP - General Family Medicine 11/23/22 08/22/23 Provider, Not In System, CHRISTIAN SALAZAR PCP - General 08/23/23 08/27/24 [facility] Connection, [facility] [place] [address] PCP - General 08/28/24 11/06/24 [facility] Connection, [facility]Doc [facility] [place] [address] PCP - General 11/07/24 02/22/25 [facility], Provider Not In The System, [place] [address] PCP - General 02/23/25 06/26/25 [facility] Connection, [facility]Doc [facility] [place] [address] PCP - General 06/27/25 documented as of this encounter
--- OUTSIDE RECORDS SUMMARY | 2025-08-12 20:11 | XMS_ITS | Encounter Summary ---
Author Organization [employer] ([place], [place], [place], [place], [place]) Address [address] [place] [address] Care Team Providers Care Director Of Rotc Name Role Phone Igor Meyers MD Primary Care Provider [phone] Provider, Not In System DYNAMIC BALANCER SET UP WORKER Primary Care Provid er Unavailable [facility] Connection, Find-A-Doc Primary Care Provider [facility], [facility]A-Doc Primary Care Provider [facility], Provider Not In The System Primary Care Provider Unavailable [facility] Connection, Find-A-Doc Primary Care Provider Encounter Details Date Type Department Care Team (Late st Contact Info) Description 04/25/2020 Transcribed Document [facility] [place] Family Medicine [facility] [place] [address] ProviderRufino MD [address] [place] [address] Social History Tobacco Use Types Packs/Day Years Used Date Smoking Tobacco: Never Assessed Comments Unknown Sex and Gender Information Value Date Recorded Sex Assigned at Not on file Legal Sex Female 1:33 PM CDT Gender Identity Not on file Sexual Orientation Not on file documented as of this encounter Miscellaneous Notes * Cerner Conversion Note - Rufino ProviderMD - 04/25/2020 10:13 AM CDT Patient Resource [facility] Entered On: 04/25/2020 10:15 EDT Performed On: 04/25/2020 10:13 EDT by Ignacia Dunn, Pass Worker Patient Resource Center Provider Status : EST Other Established Provider Name : Igor Meyers Patient Phone Number : [phone] Patient Insurance Type : Medicaid (ex. [employer], Passport) Source of Referral : Phone out to patient Location of Patient : Home Primary Care Scheduled : No Specialty Care Scheduled : No Qualify for Diabetes and/or Nutrition Referral : No Wound Care Appointment Made : No Why Patient Visited ED- Specialty spent : Other How Patient Arrived at ED : Other Primary Language : Slovenian Patient Resource Center Comment : Pt has a PCP Follow Up Needed : No Ignacia Dunn, Pass Worker - 04/25/2020 10:13 EDT Electronically signed by Alphonse [facility] Conversion Lumber Tallier Cerner at 12/10/2022 6:44 PM CDT documented in this encounter Plan of Treatment Not on file documented as of this encounter Visit Diagnoses Not on filedocumented in this encounter Care Teams Director Of Rotc Relationship Specialty Start Date End Date Igor Meyers MD [address] [place] [id number] PCP - General Family Medicine 11/23/22 08/22/23 Provider, Not In System, CHRISTIAN SALAZAR PCP - General 08/23/23 08/27/24 [facility] Connection, Find-A-Doc [facility] [place] [address] PCP - General 08/28/24 11/06/24 [facility], Find-A-Doc [facility] Find-a-Doc [place], [place] [id number] PCP - General 11/07/24 02/22/25 [facility], Provider Not In The System, [place] [address] PCP - General 02/23/25 06/26/25 [facility] Connection, Find-A-Doc [facility] Find-a-Doc [place], [place] [id number] PCP - General 06/27/25 documented as of this encounter
--- OUTSIDE RECORDS SUMMARY | 2025-08-12 20:11 | XMS_ITS | Encounter Summary ---
Author Organization [employer] ([place], [place], [place], [place], [place]) Address [address] [place] [address] Care Team Providers Care Front Tender Name Role Phone Igor Meyers MD Primary Care Provider [phone] Provider, Not In System DRAWING BOX TENDER Primary Care Provid er Unavailable [facility] Connection, Find-A-Doc Primary Care Provider [facility], Find[facility]Doc Primary Care Provider [facility], Provider Not In The System Primary Care Provider Unavailable [facility] Connection, Find-A-Doc Primary Care Provider Encounter Details Date Type Department Care Team (Late st Contact Info) Description 04/08/2019 Transcribed Document [facility] Family Medicine [address] [place] [address] ProviderRufino MD [address] [place] [address] Social History Tobacco Use Types Packs/Day Years Used Date Smoking Tobacco: Never Assessed Comments Unknown Sex and Gender Information Value Date Recorded Sex Assigned at Not on file Legal Sex Female 1:33 PM CDT Gender Identity Not on file Sexual Orientation Not on file documented as of this encounter Miscellaneous Notes * Cerner Conversion Note - Historical ProviderMD - 04/08/2019 9:37 AM CDT CR Chest 1 Vw Portable Ordered: 04/07/2019 Modified Reason for Exam: cp 04/08/2019 09:26 04/08/2019 09:37 (BE GUIDRY) No further action required documented in this encounter Plan of Treatment Not on file documented as of this encounter Visit Diagnoses Not on filedocumented in this encounter Care Teams Front Tender Relationship Specialty Start Date End Date Igor Meyers MD [address] [place] [address] PCP - General Family Medicine 11/23/22 08/22/23 Provider, Not In System, CHRISTIAN SALAZAR PCP - General 08/23/23 08/27/24 [facility] Connection, [facility]A-Doc [facility] [place] [address] PCP - General 08/28/24 11/06/24 [facility], Find-A-Doc [facility] [place] [address] PCP - General 11/07/24 02/22/25 [facility], Provider Not In The System, [place] [address] PCP - General 02/23/25 06/26/25 [facility] Connection, Find-A-Doc [facility] Find-a-Doc [place], [place] [id number] PCP - General 06/27/25 documented as of this encounter
--- OUTSIDE RECORDS SUMMARY | 2025-08-12 20:11 | XMS_ITS | Encounter Summary ---
Author Organization [employer] ([place], [place], [place], [place], [place]) Address [address] [place] [address] Care Team Providers Care Set Up Machinist Name Role Phone Igor Meyers MD Primary Care Provider [phone] Provider, Not In System OUTBOUND SALES PROFESSIONAL Primary Care Provid er Unavailable [facility] Connection, Find-A-Doc Primary Care Provider [facility] Connection, Find-A-Doc Primary Care Provider [facility], Provider Not In The System Primary Care Provider Unavailable [facility] Connection, Find-A-Doc Primary Care Provider Encounter Details Date Type Department Care Team (Late st Contact Info) Description 05/08/2020 Transcribed Document [facility] [place] [address] [place] [address] ProviderRufino MD [address] [place] [address] Social History Tobacco Use Types Packs/Day Years Used Date Smoking Tobacco: Never Assessed Comments Unknown Sex and Gender Information Value Date Recorded Sex Assigned at Not on file Legal Sex Female 1:33 PM CDT Gender Identity Not on file Sexual Orientation Not on file documented as of this encounter Miscellaneous Notes * Cerner Conversion Note - Rufino ProviderMD - 05/08/2020 6:34 PM CDT Electronically signed by Alphonse [facility] Conversion Contact Clerk Cerner at 12/10/2022 6:40 PM CDT documented in this encounter Plan of Treatment Not on file documented as of this encounter Visit Diagnoses Not on filedocumented in this encounter Care Teams Set Up Machinist Relationship Specialty Start Date End Date Igro Meyers MD [address] [place] [address] VINNY Jasso [id number] PCP - General Family Medicine 11/23/22 08/22/23 Provider, Not In System, CHRISTIAN SALAZAR PCP - General 08/23/23 08/27/24 [facility] Connection, Find[facility]A-Doc [facility] Find-a-Doc [place], [place] [address] PCP - General 08/28/24 11/06/24 [facility] Connection, Find[facility]A-Doc [facility] [place] [address] PCP - General 11/07/24 02/22/25 [facility], Provider Not In The System, [place] [address] PCP - General 02/23/25 06/26/25 [facility] Connection, Find[facility]A-Doc [facility] Find-a-Doc [place], [place] [id number] PCP - General 06/27/25 documented as of this encounter
--- OUTSIDE RECORDS SUMMARY | 2025-08-12 20:11 | XMS_ITS | Encounter Summary ---
Author Organization [employer] ([place], [place], [place], [place], [place]) Address [address] [place] [address] Care Team Providers Care Life Insurance Actuary Name Role Phone Igor Meyers MD Primary Care Provider [phone] Provider, Not In System PHOTOGRAPHIC MACHINE OPERATOR Primary Care Provid er Unavailable [facility] Connection, Find-A-Doc Primary Care Provider [facility], Find[facility]A-Doc Primary Care Provider [facility], Provider Not In The System Primary Care Provider Unavailable [facility] Connection, Find-A-Doc Primary Care Provider Encounter Details Date Type Department Care Team (Late st Contact Info) Description 04/24/2020 Transcribed Document [facility] Family [place] [facility] [address] ProviderRufino MD [address] [place] [address] Social History Tobacco Use Types [...] Rufino ProviderMD - 04/24/2020 12:11 AM CDT [place] Suicide Severity Rating Scale (C-SSRS) Entered On: 04/24/2020 0:23 EDT Performed On: 04/24/2020 0:21 EDT by RAZ ADLER RN [place] Suicide Severity Rating Scale (C-SSRS) CSSRS Past Month Wish to be : No CSSRS Past Month Suicidal Thoughts : No CSSRS Lifetime Suicide Behavior : No Suicide Severity Rating Score : 0 Suicide Severity Rating : No Additional Care Required at this time RAZ ADLER, RN - 04/24/2020 0:21 EDT Electronically signed by Alphonse [facility] Conversion Assembler Ping Pong Table Cerner at 12/10/2022 6:51 PM CDT documented in this encounter Plan of Treatment Not on file documented as of this encounter Visit Diagnoses Not on filedocumented in this encounter Care Teams Life Insurance Actuary Relationship Specialty Start Date End Date Igor Meyers MD [address] [place], [place] [id number] PCP - General Family Medicine 11/23/22 08/22/23 Provider, Not In System, CHRISTIAN SALAZAR PCP - General 08/23/23 08/27/24 [facility] Connection, Find[facility]Doc [facility] Find-a-Doc [place], [place] [id number] PCP - General 08/28/24 11/06/24 [facility] Connection, Find[facility]A-Doc [facility] Find-a-Doc [place], [place] [id number] PCP - General 11/07/24 02/22/25 [facility], Provider Not In The System, [place] [address] PCP - General 02/23/25 06/26/25 [facility] Connection, [facility]Doc [facility] Find-a-Doc [place], [place] [id number] PCP - General 06/27/25 documented as of this encounter
--- OUTSIDE RECORDS SUMMARY | 2025-08-12 20:12 | XMS_ITS | Encounter Summary ---
Author Organization [employer] ([place], [place], [place], [place], [place]) Address [address] [place] [address] Care Team Providers Care Wheel Truer Name Role Phone Igor Meyers MD Primary Care Provider [phone] Provider, Not In System TROLLEY COLLECTOR Primary Care Provid er Unavailable [facility] Connection, Find-A-Doc Primary Care Provider [facility], Find-A-Doc Primary Care Provider [facility], Provider Not In The System Primary Care Provider Unavailable [facility] Connection, Find-A-Doc Primary Care Provider Encounter Details Date Type Department Care Team (Late st Contact Info) Description 11/20/2018 Transcribed Document [facility] [place] Family Medicine [facility] [place] [address] ProviderRufino MD [address] [place] [address] Social History Tobacco Use Types [...] - 11/20/2018 11:04 PM CDT ED Discharge Vital Signs Entered On: 11/20/2018 23:04 EDT Performed On: 11/20/2018 23:04 EDT by HYUN APODACA BAG LINER Discharge Vital Signs Peripheral Pulse Rate : 68 bpm Respiratory Rate : 19 Breaths/Min Systolic Blood Pressure : 110 mmHg Diastolic Blood Pressure : 55 mmHg (LOW) Oxygen Saturation : 96 % Oxygen Therapy Mode : Room air HYUN APODACA RN - 11/20/2018 23:04 EDT Electronically signed by [facility], [facility] Conversion Awning Hanger Helper Cerner at 12/10/2022 6:47 PM CDT documented in this encounter Plan of Treatment Not on file documented as of this encounter Visit Diagnoses Not on filedocumented in this encounter Care Teams Wheel Truer Relationship Specialty Start Date End Date Igor Meyers MD [address] [place], [place] [id number] PCP - General Family Medicine 11/23/22 08/22/23 Provider, Not In System, CHRISTIAN SALAZAR PCP - General 08/23/23 08/27/24 [facility] Connection, Find-A-Doc [facility] [place] [address] PCP - General 08/28/24 11/06/24 [facility] Connection, Find-A-Doc [facility] [place] [address] PCP - General 11/07/24 02/22/25 [facility], Provider Not In The System, [place] [address] PCP - General 02/23/25 06/26/25 [facility] Connection, Find-A-Doc [facility] Find-a-Doc [place], [place] [address] PCP - General 06/27/25 documented as of this encounter
--- OUTSIDE RECORDS SUMMARY | 2025-08-12 20:12 | XMS_ITS | Encounter Summary ---
Author Organization [employer] ([place], [place], [place], [place], [place]) Address [address] [place] [address] Care Team Providers Care Coil Winder Repair Name Role Phone Igor Meyers MD Primary Care Provider [phone] Provider, Not In System SUPERVISOR SCRAP PREPARATION Primary Care Provid er Unavailable [facility] Connection, [facility]-A-Doc Primary Care Provider [facility], [facility] Primary Care Provider [facility], Provider Not In The System Primary Care Provider Unavailable [facility] Connection, Find[facility]-Doc Primary Care Provider Encounter Details Date Type Department Care Team (Late st Contact Info) Description 11/21/2018 Transcribed Document [facility] [place] [address] ProviderRufino MD [address] [place] [address] Social History Tobacco Use Types Packs/Day Years Used Date Smoking Tobacco: Never Assessed Comments Unknown Sex and Gender Information Value Date Recorded Sex Assigned at Not on file Legal Sex Female 1:33 PM CDT Gender Identity Not on file Sexual Orientation Not on file documented as of this encounter Miscellaneous Notes * Cerner Conversion Note - Historical ProviderMD - 11/21/2018 10:51 AM CDT [place] [address], [place] [address] Patient Copy Patient Information: Name: ROBERTO RANDLE Current Date: 11/21/2018 10:51:11 : 1960 Patient Address: [address] [facility] [address] Patient Attending Physician: Primary Care Provider: POLINA LAYNE (REF), -MED Primary Care Provider Discharge Diagnosis: Chest pain; Chest pain in adult Weight on Admission: 203 lb, 0 oz Weight at Discharge: 198 lb, 6 oz Comment: Follow-up Instructions: With: Address: When: [address] [place] [address] Business (1) Within 1 week Comments: Office to call with appoint/instructions Discharge Instructions: Diet after Discharge: Heart healthy diet Activity after Discharge: As tolerated Immunizations Documented During Stay: No Immunizations Found Heart Failure Discharge Instructions (if any): Stroke Related Discharge Instructions (if any): Warfarin Related Discharge Instructions (if any): Final Medication List: [facility] [place], [place], [address], [place] [id number], [phone] clopidogrel (Plavix 75 mg oral tablet) 1 Tablet(s) Oral Every Day. Refills: 0. ranolazine (Ranexa 500 mg oral tablet, extended release) 1 Tablet(s) Oral Two Times A Day. Refills: 0. Other Medications amitriptyline 25 Milligram(s) Oral At Bedtime. amLODIPine 5 Milligram(s) Oral Every Day. carvedilol (carvedilol 12.5 mg oral tablet) 1 Tablet(s) Oral Two Times A Day. docusate (docusate sodium 100 mg oral tablet) 1 Tablet(s) Oral Two Times A Day as needed as needed for constipation. fluticasone nasal (fluticasone 50 mcg/inh nasal spray) 1 Monroe(s) Nasal Every Day. in each nostril. furosemide (furosemide 20 mg oral tablet) 1 Tablet(s) Oral Every Day. gabapentin 600 Milligram(s) Oral Three Times A Day. glyBURIDE 5 Milligram(s) Oral Every Day. insulin glargine (Basaglar KwikPen 100 units/mL subcutaneous solution) 13 Unit(s) SubCutaneous At Bedtime. loratadine (loratadine 10 mg oral tablet) 1 Tablet(s) Oral Every Day. meloxicam (meloxicam 7.5 mg oral tablet) 1 Tablet(s) Oral Every Day. metFORMIN (metformin) 1,000 Milligram(s) Oral Two Times A Day. nitroglycerin (Nitrostat 0.4 mg sublingual tablet) 1 Tablet(s) SubLINgual every 5 minutes as needed as needed for chest pain. omeprazole 40 Milligram(s) Oral Every Day. PRAVAstatin 20 Milligram(s) Oral Every Day. rivaroxaban (Xarelto 10 mg oral tablet) 1 Tablet(s) Oral Every Day. topiramate 100 Milligram(s) Oral At Bedtime. traZODone (trazodone) 100 Milligram(s) Oral At Bedtime. umeclidinium (Incruse Ellipta 62.5 mcg/inh inhalation powder) 62.5 Microgram(s) Inhalation Interval Every 24 Hours. Patient Allergies: sulfADIAZINE; sulfonamides Medication Instructions: Take your medications faithfully. Do NOT skip [...] cramping, rapid heartbeat, difficulty sleeping, and nervousness. Patient education materials: Angina Pectoris Angina pectoris, often called angina, [...] physical activity. It especially occurs in the division field inspector hours. What are the causes? Atherosclerosis is [...] 08/13/2006 Document Revised: 01/24/2017 Document Reviewed: 12/15/2014 [employer] Interactive Patient Education ? 2017 [employer] Chest Wall Pain Introduction Chest wall pain [...] minutes, 2?3 times per day. ??? Take tqiz-wcr-wsygueo and prescription medicines only as told by [...] 01/18/2017 Document Reviewed: 11/08/2015 ? 2017 Elsevier Medication Leaflets: clopidogrel (kloe PID oh grel) Plavix What is the most important information I should know about clopidogrel? You should not use this medicine if you have any active bleeding such as a stomach ulcer or bleeding in the brain. Clopidogrel increases your risk of bleeding, which can be severe or life-threatening. Call your doctor or seek emergency medical attention if you have bleeding that will not stop, if you have blood in your urine, black or bloody stools, or if you cough up blood or vomit that looks like coffee grounds. Do not stop taking clopidogrel without first talking to your doctor, even if you have signs of bleeding. Stopping clopidogrel may increase your risk of a heart attack or stroke. What is clopidogrel? Clopidogrel is used to lower your risk of having a stroke, blood clot, or serious heart problem after you've had a heart attack, severe chest pain (angina), or circulation problems. Clopidogrel may also be used for purposes not listed in this medication guide. What should I discuss with my healthcare provider before taking clopidogrel? You should not use clopidogrel if you are allergic to it, or if you have: ? any active bleeding; or ?? a stomach ulcer or bleeding in the brain (such as from a head injury). Tell your doctor if you have ever had: ? an ulcer in your stomach or intestines; or ?? a bleeding disorder or blood clotting disorder. Clopidogrel may not work as well if you have certain genetic factors that affect the breakdown of this medicine in your body. Your doctor may perform a blood test to make sure clopidogrel is right for you. This medicine is not expected to harm an unborn baby. However, taking clopidogrel within 1 week before childbirth can cause bleeding in the mother. Tell your doctor if you are or plan to become . You should not breast-feed while using this medicine. How should I take clopidogrel? Follow all directions on your prescription label and read all medication guides or instruction sheets. Use these medicines exactly as directed. Clopidogrel can be taken with or without food. Clopidogrel is sometimes taken together with aspirin. Take aspirin only if your doctor tells you to. Clopidogrel keeps your blood from coagulating (clotting) and can make it easier for you to bleed, even from a minor injury. Contact your doctor or seek emergency medical attention if you have any bleeding that will not stop. You may need to stop using clopidogrel for a short time before a surgery, medical procedure, or dental work. Any healthcare provider who treats you should know that you are taking clopidogrel. Do not stop taking clopidogrel without first talking to your doctor, even if you have signs of bleeding. Stopping the medicine could increase your risk of a heart attack or stroke. Store at room temperature away from moisture and heat. What happens if I miss a dose? Take the medicine as soon as you can, but skip the missed dose if it is almost time for your next dose. Do not take two doses at one time. What happens if I overdose? Seek emergency medical attention or call the Poison Help line at . Overdose can cause excessive bleeding. What should I avoid while taking clopidogrel? Avoid alcohol. It can increase your risk of stomach bleeding. Avoid activities that may increase your risk of bleeding or injury. Use extra care to prevent bleeding while shaving or brushing your teeth. If you also take aspirin: Ask a doctor or pharmacist before using medicines for pain, fever, swelling, or cold/flu symptoms. They may contain ingredients similar to aspirin (such as salicylates, ibuprofen, ketoprofen, or naproxen). Taking these products together can increase your risk of bleeding. What are the possible side effects of clopidogrel? Get emergency medical help if you have signs of an allergic reaction: hives; difficult breathing; swelling of your face, lips, tongue, or throat. Clopidogrel increases your risk of bleeding, which can be severe or life-threatening. Call your doctor or seek emergency medical attention if you have bleeding that will not stop, if you have blood in your urine, black or bloody stools, or if you cough up blood or vomit that looks like coffee grounds. Also call your doctor at once if you have: ? pale skin, easy bruising, purple spots under your skin or in your mouth; ?? jaundice (yellowing of your skin or eyes); ?? fast heartbeats, shortness of breath; ?? headache, fever, weakness, feeling tired; ?? little or no urination; ?? a seizure; or ?? signs of a blood clot--sudden numbness or weakness, confusion, problems with vision or speech. This is not a complete list of side effects and others may occur. Call your doctor for medical advice about side effects. You may report side effects to FDA at 4-877-ERV-9260. What other drugs will affect clopidogrel? Certain other medicines may increase your risk of bleeding, including aspirin. Avoid taking aspirin unless your doctor tells you to. Tell your doctor about all your other medicines, especially: ? any other medicines to treat or prevent blood clots; ?? a stomach acid lidar scientist such as omeprazole, Nexium, or Prilosec; ?? an antidepressant; ?? an opioid medication; ?? a blood thinner--warfarin, Coumadin, Jantoven; or ?? NSAIDs (nonsteroidal anti-inflammatory drugs)--ibuprofen (Advil, Motrin), naproxen (Aleve), celecoxib, diclofenac, indomethacin, meloxicam, and others. This list is not complete. Other drugs may affect clopidogrel, including prescription and xrzs-sjz-slxqjlo medicines, vitamins, and herbal products. Not all possible drug interactions are listed here. Where can I get more information? Your pharmacist can provide more information about clopidogrel. Remember, keep this and all other medicines out of the reach of children, never share your medicines with others, and use this medication only for the indication prescribed. Every effort has been made to ensure that the information provided by [employer]. [employer]') is accurate, up-to-date, and complete, but no guarantee is made to that effect. Drug information contained herein may be time sensitive. [employer] information has been compiled for use by healthcare practitioners and consumers in the [place] and therefore [employer] does not warrant that uses outside of the [place] are appropriate, unless specifically indicated otherwise. [employer] drug information does not endorse drugs, diagnose patients or recommend therapy. [employer] drug information is an informational resource designed to assist licensed healthcare practitioners in caring for their patients and/or to serve consumers viewing this service as a supplement to, and not a substitute for, the expertise, skill, knowledge and judgment of healthcare practitioners. The absence of a warning for a given drug or drug combination in no way should be construed to indicate that the drug or drug combination is safe, effective or appropriate for any given patient. [employer] does not assume any responsibility for any aspect of healthcare administered with the aid of information [employer] provides. The information contained herein is not intended to cover all possible uses, directions, precautions, warnings, drug interactions, allergic reactions, or adverse effects. If you have questions about the drugs you are taking, check with your doctor, nurse or pharmacist. Copyright 9516-0245 [employer]. Version: 15.. Revision Date: 06/17/2018. ranolazine (ra SPARROW la marquis) Ranexa What is the most important information I should know about ranolazine? You should not take ranolazine if you have cirrhosis of the liver. Serious drug interactions can occur when certain medicines are used together with ranolazine. Tell each of your healthcare providers about all medicines you use now, and any medicine you start or stop using. What is ranolazine? Ranolazine is an anti-anginal medication. It works by improving blood flow to help the heart work more efficiently. Ranolazine is used to treat chronic angina (chest pain). Ranolazine is not for use during an acute (emergency) attack of angina. Ranolazine may also be used for purposes not listed in this medication guide. What should I discuss with my health care provider before taking ranolazine? You should not take ranolazine if you are allergic to it, or if you have cirrhosis of the liver. Many other drugs can interact with ranolazine and should not be used at the same time. Your doctor may need to change your treatment plan if you use any of the following drugs: ? clarithromycin; ?? nefazodone; ?? Kareem's wort; ?? antifungal medicine--itraconazole, ketoconazole; ?? HIV or AIDS medicine--indinavir, lopinavir/ritonavir, nelfinavir, ritonavir, saquinavir; ?? tuberculosis medicine--rifabutin, rifampin, rifapentine; or ?? seizure medicine-carbamazepine, phenobarbital, phenytoin. To make sure ranolazine is safe for you, tell your doctor if you have: ? a heart rhythm disorder; ?? liver disease; ?? kidney disease; or ?? a personal or family history of long QT syndrome. It is not known whether this medicine will harm an unborn baby. Tell your doctor if you are or plan to become . It is not known whether ranolazine passes into breast milk or if it could harm a nursing baby. Tell your doctor if you are breast-feeding a baby. How should I take ranolazine? Follow all directions on your prescription label. Your doctor may occasionally change your dose to make sure you get the best results. Do not use this medicine in larger or smaller amounts or for longer than recommended. Ranolazine may be taken with or without food. Do not crush, chew, or break an extended-release tablet. Swallow it whole. Call your doctor if your symptoms do not improve, or if they get worse while using ranolazine. Chronic angina is often treated with a combination of drugs. Use all medications as directed by your doctor. Read the medication guide or patient instructions provided with each medication. Do not change your doses or medication schedule without your doctor's advice. Store at room temperature away from moisture and heat. What happens if I miss a dose? Take the missed dose as soon as you remember. Skip the missed dose if it is almost time for your next scheduled dose. Do not take extra medicine to make up the missed dose. What happens if I overdose? Seek emergency medical attention or call the Poison Help line at . Overdose can cause nausea, vomiting, numbness or tingling, dizziness, double vision, confusion, or fainting. What should I avoid while taking ranolazine? Ranolazine may impair your thinking or reactions. Be careful if you drive or do anything that requires you to be alert. Grapefruit and grapefruit juice may interact with ranolazine and lead to unwanted side effects. Discuss the use of grapefruit products with your doctor. What are the possible side effects of ranolazine? Get emergency medical help if you have signs of an allergic reaction: hives; difficult breathing; swelling of your face, lips, tongue, or throat. Call your doctor at once if you have: ? a light-headed feeling, like you might pass out; ?? headache with chest pain and severe dizziness, fast or pounding heartbeats; or ?? kidney problems--little or no urination, painful or difficult urination, swelling in your feet or ankles, feeling tired or short of breath. Common side effects may include: ? nausea, constipation; ?? headache; or ?? dizziness. This is not a complete list of side effects and others may occur. Call your doctor for medical advice about side effects. You may report side effects to FDA at 6-074-XYJ-9507. What other drugs will affect ranolazine? Many drugs can interact with ranolazine. Not all possible interactions are listed here. Tell your doctor about all your medications and any you start or stop using during treatment with ranolazine, especially: ? an antibiotic or antifungal medicine; ?? any other medicine to treat heart disease; ?? cholesterol-lowering medicine; ?? diabetes medication; ?? medicine to prevent organ transplant rejection; ?? medicine to treat a mental illness; or ?? medicine to treat or prevent nausea and vomiting caused by chemotherapy or radiation. This list is not complete and many other drugs can interact with ranolazine. This includes prescription and wgfp-sdb-zmuzxbo medicines, vitamins, and herbal products. Give a list of all your medicines to any healthcare provider who treats you. Where can I get more information? Your pharmacist can provide more information about ranolazine. Remember, keep this and all other medicines out of the reach of children, never share your medicines with others, and use this medication only for the indication prescribed. Every effort has been made to ensure that the information provided by [employer]. [employer]') is accurate, up-to-date, and complete, but no guarantee is made to that effect. Drug information contained herein may be time sensitive. [employer] information has been compiled for use by healthcare practitioners and consumers in the [place] and therefore [employer] does not warrant that uses outside of the [place] are appropriate, unless specifically indicated otherwise. [employer] drug information does not endorse drugs, diagnose patients or recommend therapy. [employer] drug information is an informational resource designed to assist licensed healthcare practitioners in caring for their patients and/or to serve consumers viewing this service as a supplement to, and not a substitute for, the expertise, skill, knowledge and judgment of healthcare practitioners. The absence of a warning for a given drug or drug combination in no way should be construed to indicate that the drug or drug combination is safe, effective or appropriate for any given patient. [employer] does not assume any responsibility for any aspect of healthcare administered with the aid of information [employer] provides. The information contained herein is not intended to cover all possible uses, directions, precautions, warnings, drug interactions, allergic reactions, or adverse effects. If you have questions about the drugs you are taking, check with your doctor, nurse or pharmacist. Copyright 9565-6868 [employer]. Version: 11.. Revision Date: 10/14/2015. CIGARETTE SMOKING: The facts are clear, cigarette smoking will shorten your life. Smoking can cause many illnesses along the way. As a healthcare provider, we recommend that you stop smoking. Assistance with quitting is available by contacting 5-065-QQJL-NOW. This is a free resource providing counseling, support, and referral. Or you may contact your personal physician. 4 WAYS TO GET AHEAD OF SEPSIS [...] Fibrillation (irregular heartbeat) Family history of stroke Reminder: Be sure to sign up for the [employer] patient portal, which gives you 19/03 access to your medical information ??? including these discharge instructions ??? using your computer, smartphone, or tablet. Just go to [employer] to get started. Questions? Call . [facility] would like to thank you for allowing us to assist you with your healthcare needs. LUCIO Morgan MARY JANE, (or licensing representative) have received the above patient education materials/instructions and have verbalized understanding: Patient Signature _ Date/Time Patient Pulp Roller Signature (if needed) Date/Time Clinician/Hospital Pulp Roller Signature (if needed) Date/Time Electronically signed by Interface, [facility] Conversion Hot Braider Cerner at 12/10/2022 6:27 PM CDT documented in this encounter Plan of Treatment Not on file documented as of this encounter Visit Diagnoses Not on filedocumented in this encounter Care Teams Coil Winder Repair Relationship Specialty Start Date End Date Igor Meyers MD [address] [place] [address] PCP - General Family Medicine 11/23/22 08/22/23 Provider, Not In System, CHRISTIAN SALAZAR PCP - General 08/23/23 08/27/24 [facility] Connection, [facility] [place] [address] PCP - General 08/28/24 11/06/24 [facility] Connection, [facility] [place] [address] PCP - General 11/07/24 02/22/25 [facility], Provider Not In The System, [place] [address] PCP - General 02/23/25 06/26/25 [facility] Connection, [facility] [place] [address] PCP - General 06/27/25 documented as of this encounter
--- OUTSIDE RECORDS SUMMARY | 2025-08-12 20:12 | XMS_ITS | Encounter Summary ---
Author Organization [employer] ([place], [place], [place], [place], [place]) Address [address] [place] [address] Care Team Providers Care Marina Manager Name Role Phone Igor Meyers MD Primary Care Provider [phone] Provider, Not In System FOOD SERVICES MANAGER Primary Care Provid er Unavailable [facility] Connection, [facility] Primary Care Provider [facility], [facility] Primary Care Provider [facility], Provider Not In The System Primary Care Provider Unavailable [facility], [facility] Primary Care Provider Encounter Details Date Type Department Care Team (Late st Contact Info) Description 11/21/2018 Transcribed Document [facility] [place] Family Medicine [address] [place] [address] ProviderRufino MD [address] [place] [address] Social History Tobacco Use Types [...] Historical ProviderMD - 11/21/2018 10:[address] [facility] OT Charges Entered On: 11/21/2018 10:51 EDT Performed On: 11/21/2018 10:51 EDT by HEATHER MICHELE OTR/Carmelita Conrad OT Charges Screen For Flying Squad Worker : 1 HEATHER MICHELE OTR/Carmelita - 11/21/2018 10:51 EDT documented in this encounter Plan of Treatment Not on file documented as of this encounter Visit Diagnoses Not on filedocumented in this encounter Care Teams Marina Manager Relationship Specialty Start Date End Date Igor Meyers MD [address] [place] [address] PCP - General Family Medicine 11/23/22 08/22/23 Provider, Not In System, CHRISTIAN SALAZAR PCP - General 08/23/23 08/27/24 [facility], [facility] [place] [address] PCP - General 08/28/24 11/06/24 [facility], [facility] [place] [address] PCP - General 11/07/24 02/22/25 [facility], Provider Not In The System, [place] [address] PCP - General 02/23/25 06/26/25 [facility], [facility] [place] [address] PCP - General 06/27/25 documented as of this encounter
--- OUTSIDE RECORDS SUMMARY | 2025-08-12 20:12 | XMS_ITS | Encounter Summary ---
Author Organization [employer] ([place], [place], [place], [place], [place]) Address [address] [place] [address] Care Team Providers Care River Rafting Guide Name Role Phone Igor Meyers MD Primary Care Provider [phone] Provider, Not In System EXPRESS MANAGER Primary Care Provid er Unavailable [facility] Connection, Find-A-Doc Primary Care Provider Sj Connection, Find-A-Doc Primary Care Provider [facility], Provider Not In The System Primary Care Provider Unavailable [facility] Connection, Find-A-Doc Primary Care Provider Encounter Details Date Type Department Care Team (Late st Contact Info) Description 11/20/2018 Transcribed Document [facility] Family Medicine [facility] [place] [address] ProviderRufino MD [address] [place] [address] Social History Tobacco Use Types Packs/Day Years Used Date Smoking Tobacco: Never Assessed Comments Unknown Sex and Gender Information Value Date Recorded Sex Assigned at Not on file Legal Sex Female 1:33 PM CDT Gender Identity Not on file Sexual Orientation Not on file documented as of this encounter Miscellaneous Notes * Cerner Conversion Note - Rufino ProviderMD - 11/20/2018 11:46 PM CDT Pain Assessment Entered On: 11/21/2018 5:17 EDT Performed On: 11/21/2018 0:35 EDT by Francia Mckeon RN Intervention Information: morphine Performed by Francia Mckeon RN on 11/21/2018 00:05:00 EDT morphine,2mg IV Push,Peripheral Line 1,Pain (Severe 7-10) Pain Assessment Pain Assessment : Follow-up assessment Pain Scale Goal : 4 Pain Scale Used : 0-10 Scale Francia Mckeon RN - 11/21/2018 5:12 EDT Pain Scale Intensity : 3 Francia Mckeon RN - 11/21/2018 5:12 EDT Image 4 - Images currently included in the form version of this document have not been included in the text rendition version of the form. Electronically signed by [facility], [facility] Conversion Freight Tallier Cerner at 12/10/2022 6:51 PM CDT documented in this encounter Plan of Treatment Not on file documented as of this encounter Visit Diagnoses Not on filedocumented in this encounter Care Teams River Rafting Guide Relationship Specialty Start Date End Date Igor Meyers MD [address] [place] [id number] PCP - General Family Medicine 11/23/22 08/22/23 Provider, Not In System, CHRISTIAN SALAZAR PCP - General 08/23/23 08/27/24 [facility] Connection, Find-A-Doc [facility] Find-a-Doc [place], [place] [id number] PCP - General 08/28/24 11/06/24 [facility], Find-A-Doc [facility] Find-a-Doc [place], [place] [id number] PCP - General 11/07/24 02/22/25 [facility], Provider Not In The System, [place] [address] PCP - General 02/23/25 06/26/25 [facility] Connection, Find-A-Doc [facility] Find-a-Doc [place], [place] [id number] PCP - General 06/27/25 documented as of this encounter
--- OUTSIDE RECORDS SUMMARY | 2025-08-12 20:12 | XMS_ITS | Encounter Summary ---
Author Organization [facility] ([place], [place], [place], [place], [place]) Address [address] [place] [address] Care Team Providers Care Computer Consultant Name Role Phone Igor Meyers MD Primary Care Provider [phone] Provider, Not In System DIRECTOR NURSING SERVICE Primary Care Provid er Unavailable [facility] Connection, Find-A-Doc Primary Care Provider [facility] Connection, Find-A-Doc Primary Care Provider [facility], Provider Not In The System Primary Care Provider Unavailable [facility] Connection, Find-A-Doc Primary Care Provider Encounter Details Date Type Department Care Team (Late st Contact Info) Description 11/20/2018 Transcribed Document [facility] [place] [facility] [place] [address] ProviderRufino MD [address] [place] [address] Social History Tobacco Use Types Packs/Day Years Used Date Smoking Tobacco: Never Assessed Comments Unknown Sex and Gender Information Value Date Recorded Sex Assigned at Not on file Legal Sex Female 1:33 PM CDT Gender Identity Not on file Sexual Orientation Not on file documented as of this encounter Miscellaneous Notes * Cerner Conversion Note - Rufino ProviderMD - 11/20/2018 7:08 PM CDT Pain Assessment Entered On: 11/20/2018 20:15 EDT Performed On: 11/20/2018 20:14 EDT by HYUN APODACA, RN Intervention Information: morphine Performed by HYUN APODACA, RN on 11/20/2018 19:43:00 EDT morphine,4mg IV Push,Right Antecubit [place] Pain Assessment Pain Assessment : Follow-up assessment Pain Scale Used : 0-10 Scale Location : Chest HYUN APODACA RN - 11/20/2018 20:14 EDT Pain Scale Intensity : 8 HYUN APODACA RN - 11/20/2018 20:14 EDT Image 4 - Images currently included in the form version of this document have not been included in the text rendition version of the form. Electronically signed by Alphonse [facility] Conversion Director Search Cerner at 12/10/2022 6:51 PM CDT documented in this encounter Plan of Treatment Not on file documented as of this encounter Visit Diagnoses Not on filedocumented in this encounter Care Teams Computer Consultant Relationship Specialty Start Date End Date Igor Meyers MD [address] [place] [address] PCP - General Family Medicine 11/23/22 08/22/23 Provider, Not In System, CHRISTIAN SALAZAR PCP - General 08/23/23 08/27/24 [facility] Connection, Find-A-Doc [facility] [place] [address] PCP - General 08/28/24 11/06/24 [facility] Connection, Find[facility]A-Doc [facility] Find-a[place], [place] [id number] PCP - General 11/07/24 02/22/25 [facility], Provider Not In The System, [place] [address] PCP - General 02/23/25 06/26/[address] [facility] Connection, Find-A-Doc [facility] Find[facility]a[place], [place] [id number] PCP - General 06/27/25 documented as of this encounter
--- OUTSIDE RECORDS SUMMARY | 2025-08-12 20:12 | XMS_ITS | Encounter Summary ---
Author Organization [employer] ([place], [place], [place], [place], [place]) Address [address] [place] [address] Care Team Providers Care Manager Global Name Role Phone Igor Meyers MD Primary Care Provider [phone] Provider, Not In System VB NET DEVELOPER Primary Care Provid er Unavailable [facility] Connection, Find-A-Doc Primary Care Provider Sj Connection, Find-A-Doc Primary Care Provider [facility], Provider Not In The System Primary Care Provider Unavailable [facility] Connection, Find-A-Doc Primary Care Provider Encounter Details Date Type Department Care Team (Late st Contact Info) Description 04/24/2020 Transcribed Document [facility] Family Medicine [facility] [place] [address] ProviderRufino MD [address] [place] [address] Social History Tobacco Use Types Packs/Day Years Used Date Smoking Tobacco: Never Assessed Comments Unknown Sex and Gender Information Value Date Recorded Sex Assigned at Not on file Legal Sex Female 1:33 PM CDT Gender Identity Not on file Sexual Orientation Not on file documented as of this encounter Miscellaneous Notes * Cerner Conversion Note - Rufino ProviderMD - 04/24/2020 4:37 AM CDT ED Discharge Entered On: 04/24/2020 4:38 EDT Performed On: 04/24/2020 4:37 EDT by RAZ ADLER RN Discharge Process Patient Disposition : Discharge Personal Belongings With Patient : Yes Patient Education Completed : Yes IV Discontinued : Yes Nursing Documentation Completed : Yes RAZ ADLER RN - 04/24/2020 4:37 EDT ED Discharge Discharge To : Home with ambulatory/outpatient follow-up Mode Of Departure : Ambulatory Prescriptions Given to Patient : Nini RAZ ADLER RN - 04/24/2020 4:37 EDT Electronically signed by Alphonse [facility] Conversion Water Filterer Helper Cerner at 12/10/2022 6:31 PM CDT documented in this encounter Plan of Treatment Not on file documented as of this encounter Visit Diagnoses Not on filedocumented in this encounter Care Teams Manager Global Relationship Specialty Start Date End Date Igor Meyers MD [address] [place] [address] PCP - General Family Medicine 11/23/22 08/22/23 Provider, Not In System, CHRISTIAN SALAZAR PCP - General 08/23/23 08/27/24 [facility] Connection, Find-A-Doc [facility] Find-a-Doc [place], [place] [id number] PCP - General 08/28/24 11/06/24 [facility] Connection, Find-A-Doc [facility] [place] [address] PCP - General 11/07/24 02/22/25 [facility], Provider Not In The System, [place] [address] PCP - General 02/23/25 06/26/25 [facility] Connection, Find-A-Doc [facility] Find-a-Doc [place], [place] [id number] PCP - General 06/27/25 documented as of this encounter
--- OUTSIDE RECORDS SUMMARY | 2025-08-12 20:12 | XMS_ITS | Referral Summary ---
Author Organization [employer] ([place], [place], [place], [place], [place]) Address [address] [place] [address] Care Team Providers Care Dynamite Packing Machine Feeder Name Role Phone [facility] Connection, Find-A-Doc Primary Care Provider Encounters Date Type Department Care Team Description 06/27/2025 Travel 06/27/2025 3:15 PM EDT - 06/27/2025 7:14 PM EDT Emergency [facility] Emergency Department [address] [place] [address] Gustabo Tripp MD Atypical chest pain (Primary Dx) Discharge Disposition: Home or Self Care from Last 3 Months Allergies Active Allergy Reactions Criticality Noted Date [...] Sepsis 02/19/2025 Abscess 11/04/2023 Chest pain 06/30/2022 Immunizations Immunization Administration Dates Next Due Influenza Four-QIV 6MO+ PF IM ([id number]) 3 Social History Tobacco Use Types Packs/Day [...] Date Record ed How often does anyone, yvonen sands family and friends, physically hurt you? [...] your living situation today? I have a [facility] place to live 02/19/2025 Think about the [...] Do you speak a language other than Austrian at ho pr? No 02/19/2025 Do you want help with [...] Mass Index 30.3 06/27/2025 3:20 PM EDT Functional Status * Are you deaf or [...] 11/25/2022 9:58 AM CDT Celi Salamanca RN Mental Status * Because of a physical, mental, or emotional condition, do you have serious difficulty concentrating, remembering, or making decisions? (5 years old or older) Answer Entry Date Author No 11/25/2022 9:58 AM Celi Small RN Plan of Treatment Not on file Procedures Procedure Name Priority Date/Time Associated Diagnosis [...] QTC Interval 436 ms GE MUSE P Decker 28 degrees GE MUSE R AXIS (MCT) 63 degrees GE MUSE T Wave Decker -166 degrees GE MUSE [place] Diagnosis Normal sinus rhythm with sinus arrhythmia ST & T wave abnormality, consider inferior ischemia ST & T wave abnormality, consider anterior ischemia Baseline artifact Abnormal ECG Confirmed by Tarah GALVAN SUZANNE ([id number]) on 06/29/2025 1:15:41 PM GE MUSE 06/27/2025 6:24 PM EDT 06/29/2025 1:15 PM EST us Christina Franklin APRN ECG ORDERABLES Final Resu lt GE MUSE * High Sensitivity Troponin I (06/27/2025 6:18 PM EDT) Only the most recent of2 resultswithin the time period is included. Pathologist [facility] Troponin I High Sensitivity (pg/mL) 6.6 3 - 58.8 pg/mL 06/27/2025 7:02 PM EDT [facility] Comment: Troponin Result (pg/mL) *Interpretation [...] 6:18 PM EDT 06/27/2025 6:36 PM EDT us Christina Franklin APRN LAB BLOOD ORDERABLES Final Result [facility] [address] [place], [place] [address] [phone] * (ABNORMAL) CBC with Auto Diff (06/27/2025 4:24 PM EDT) WBC 8.8 3.9 - 10.0 K/ L 06/27/2025 4:28 PM EDT [facility] RBC 4.51 3.93 - 6.08 M/ L 06/27/2025 4:28 PM EDT [facility] Hemoglobin 13.3 11.2 - 15.7 GM/DL 06/27/2025 4:28 PM EDT [facility] Hematocrit 39.9 34.1 - 44.9 % 06/27/2025 4:28 PM EDT [facility] MCV 89 79 - 95 fL 06/27/2025 4:28 PM EDT [facility] MCH 29.5 25.6 - 32.2 pg 06/27/2025 4:28 PM EDT [facility] MCHC 33.3 32.2 - 36.5 GM/DL 06/27/2025 4:28 PM EDT [facility] RDW 15.5(H) 11.6 - 14.4 % 06/27/2025 4:28 PM EDT [facility] Platelets 302 163 - 369 K/CU MM 06/27/2025 4:28 PM EDT [facility] MPV 10.2 9.4 - 12.4 fL 06/27/2025 4:28 PM EDT [facility] % Neutros 68 34 - 71 % 06/27/2025 4:28 PM EDT [facility] % Lymphs 23 19 - 53 % 06/27/2025 4:28 PM EDT [facility] % Monos 7 4 - 13 % 06/27/2025 4:28 PM EDT [facility] % Eos 1.9 1.0 - 7.0 % 06/27/2025 4:28 PM EDT [facility] % Baso 1 0 - 1 % 06/27/2025 4:28 PM EDT [facility] # Neutros 5.96 1.56 - 6.13 K/ L 06/27/2025 4:28 PM EDT [facility] # Lymphs 1.99 1.18 - 3.74 K/ L 06/27/2025 4:28 PM EDT [facility] # Monos 0.57 0.24 - 0.82 K/ L 06/27/2025 4:28 PM EDT [facility] # Eos 0.17 0.04 - 0.54 K/ L 06/27/2025 4:28 PM EDT [facility] # Baso 0.07 0.01 - 0.08 K/ L 06/27/2025 4:28 PM EDT [facility] % Imm Grans 0.50 0.00 - 0.60 % 06/27/2025 4:28 PM EDT [facility] # IG 0.04 0.00 - 0.05 K/uL 06/27/2025 4:28 PM EDT [facility] Blood Venipuncture / Unknown 06/27/2025 4:24 PM EDT 06/27/2025 4:24 PM EDT Narrative [facility] - 06/27/2025 4:28 PM EDT [...] noted Atypical Lymph flag noted Christina Franklin CLOUD SOFTWARE ENGINEER LAB BLOOD ORDERABLES Final Result Performing Organization Address [facility]/ZIP Co de Phone Number [facility] [address] [phone] * PROBNP (06/27/2025 4:24 PM EDT) [facility] ProBNP (pg/mL) 88 0 - 125 pg/mL 06/27/2025 4:55 PM EDT [facility] Blood Venipuncture / Unknown 06/27/2025 4:24 PM EDT 06/27/2025 4:24 PM EDT Narrative [facility] - 06/27/2025 4:55 PM EDT Biotin supplements can cause clinically significant incorrect lab test results. The FDA has seen an increase in the number of reported adverse events related to biotin interference with lab tests. [facility] LAB BLOOD ORDERABLES Final Result Performing Organization Address [facility] Co de Phone Number [facility] [address] [phone] * (ABNORMAL) D-dimer (06/27/2025 4:24 PM EDT) [facility] D-Dimer, Quant (SJMS SJE) 555.30(H) <=500.00 ng/mL FEU 06/27/2025 4:55 PM EDT [facility] Comment: A normal D-dimer result [...] PM EDT 06/27/2025 4:24 PM EDT Christina Rosfreddy VAUGHANN LAB BLOOD ORDERABLES Final Result [facility] [address] [place] [address], [facility] [phone] * Magnesium (06/27/2025 4:24 PM EDT) Magnesium 1.8 1.5 - 2.4 mg/dL 06/27/2025 4:55 PM EDT [facility] Blood Venipuncture / Unknown 06/27/2025 4:24 PM EDT 06/27/2025 4:[facility] PM [facility] Final Result Performing Organization Address [facility] Co de Phone Number [facility] [address] [phone] * (ABNORMAL) Comprehensive metabolic panel (06/27/2025 4:24 PM EDT) Sodium 139 136 - 146 meq/L 06/27/2025 4:55 PM EDT [facility] Potassium 3.5 3.5 - 5.1 meq/L 06/27/2025 4:55 PM EDT [facility] Chloride 106 102 - 112 meq/L 06/27/2025 4:55 PM EDT [facility] CO2 24 21 - 32 meq/L 06/27/2025 4:55 PM EDT [facility] Calcium 9.6 8.5 - 10.1 mg/dL 06/27/2025 4:55 PM EDT [facility] Glucose 288(H) 74 - 100 mg/dL 06/27/2025 4:55 PM EDT [facility] BUN 10 7 - 22 mg/dL 06/27/2025 4:55 PM EDT [facility] Creatinine 0.61 0.55 - 1.02 mg/dL 06/27/2025 4:55 PM EDT [facility] BUN/Creatinine 16 8 - 20 06/27/2025 4:55 PM EDT [facility] Albumin 3.4 3.4 - 5.0 g/dL 06/27/2025 4:55 PM EDT [facility] Alkaline Phosphatase 94 27 - 136 U/L 06/27/2025 4:55 PM EDT [facility] ALT 21 12 - 78 U/L 06/27/2025 4:55 PM EDT [facility] AST 20 5 - 37 U/L 06/27/2025 4:55 PM EDT [facility] Total Bilirubin 0.3 0.2 - 1.3 mg/dL 06/27/2025 4:55 PM EDT [facility] Protein, Total 6.8 6.4 - 8.2 gm/dL 06/27/2025 4:55 PM EDT [facility] Anion Gap 13 9 - 20 06/27/2025 4:55 PM EDT [facility] A/G Ratio 1.0(L) 1.1 - 2.5 06/27/2025 4:55 PM EDT [facility] Globulin 3.4 1.5 - 4.5 g/dL 06/27/2025 4:55 PM EDT [facility] Osmolality Calc 287.1 mOsm/kg 4:55 PM EDT [facility] eGFR (mL/min/1.73m2) >60 >=60 mL/min/1.7 3m2 06/27/2025 4:55 PM EDT [facility] Comment:ESTIMATED GFR IS NOT ACCURATE CREATININE CLEARANCE IN PREDICTING GLOMERULAR FILTRATION RATE. ESTIMATED GFR IS NOT APPLICABLE FOR DIALYSIS PATIENTS. Blood Venipuncture / Unknown 06/27/2025 4:24 PM EDT 06/27/2025 4:24 PM EDT Christina Franklin APRN LAB BLOOD ORDERABLES Final Result [facility] [address] [place] [address], [facility] [phone] * XR chest 1 view portable / [...] 5:43 AM EDT 04/13/2020 10:10 AM EDT [facility] Historical Provider PATHOLOGY/CYTOLOGY ORDE SPENCER Final Result Performing Organization Address City/State/[facility] Co de Phone Number [facility] [address] [phone] from Last 3 Months or Most Recently Relevant to Health Maintenance Insurance [address] [id number] [facility] Advance Directives For more information, please contact: [phone] * DNR - Limited Additional Intervention (Latest [...] pulse: NO Intubation. May use BiPAP/CPAP Call HEAD OF INSIGHT * Full Code Date Activated Date Inactivated Comments 11/23/2022 5:25 PM 11/23/2022 5:34 PM * Full Code Date Activated Date Inactivated Comments 06/30/2022 12:49 AM 07/01/2022 4:56 PM Care Teams Dynamite Packing Machine Feeder Relationship Specialty Start Date End Date [facility] Connection, Find-A-Doc [facility] [place] [address] PCP - General 06/27/25
--- OUTSIDE RECORDS SUMMARY | 2025-08-12 20:12 | XMS_ITS | Encounter Summary ---
Author Organization [employer] ([place], [place], [place], [place], [place]) Address [address] [place] [address] Care Team Providers Care Clinical Lab Technologist Name Role Phone Igor Meyers MD Primary Care Provider [phone] Provider, Not In System NUCLEAR MEDICINE CHIEF TECHNOLOGIST Primary Care Provid er Unavailable [facility], [facility] Primary Care Provider [facility], [facility] Primary Care Provider [facility], Provider Not In The System Primary Care Provider Unavailable [facility], [facility] Primary Care Provider Encounter Details Date Type Department Care Team (Late st Contact Info) Description 11/21/2018 Transcribed Document [facility] Family Medicine [facility] [place] [address] ProviderRufino MD [address] [place] [address] Social History Tobacco Use Types Packs/Day Years Used Date Smoking Tobacco: Never Assessed Comments Unknown Sex and Gender Information Value Date Recorded Sex Assigned at Not on file Legal Sex Female 1:33 PM CDT Gender Identity Not on file Sexual Orientation Not on file documented as of this encounter Miscellaneous Notes * Cerner Conversion Note - Historical ProviderMD - 11/21/2018 11:17 AM CDT [facility] [address], [place] [address] Patient Copy Patient Information: Name: ROBERTO RANDLE Current Date: 11/21/2018 11:17:32 : 1960 Patient Address: [address] [facility] [address] Patient Attending Physician: Primary Care Provider: POLINA LAYNE (REF), -MED Primary Care Provider Discharge Diagnosis: Chest pain; Chest pain in adult Weight on Admission: 203 lb, 0 oz Weight at Discharge: 198 lb, 6 oz Comment: Follow-up Instructions: With: Address: When: [address] [place] [address] Business (1) Within 1 week Comments: Office to call with appoint/instructions Discharge Instructions: Diet after Discharge: Heart healthy diet Activity after Discharge: As tolerated Immunizations Documented During Stay: No Immunizations Found Heart Failure Discharge Instructions (if any): Stroke Related Discharge Instructions (if any): Warfarin Related Discharge Instructions (if any): Final Medication List: [facility] [place], [place], [address], [place] [id number], [phone] clopidogrel (Plavix 75 mg oral tablet) 1 [...] nasal (fluticasone 50 mcg/inh nasal spray) 1 Aurora(s) Nasal Every Day. in each nostril. furosemide [...] physical activity. It especially occurs in the disbursing agent hours. What are the causes? Atherosclerosis is [...] 08/13/2006 Document Revised: 01/24/2017 Document Reviewed: 12/15/2014 [employer] Patient Education ? 2017 [employer] Chest Wall Pain Introduction Chest wall [...] minutes, 2?3 times per day. ??? Take bavb-hsl-daevnul and prescription medicines only as told by [...] may report side effects to FDA at 5-576-TSP-7314. What other drugs will affect clopidogrel? Certain other medicines may increase your risk of bleeding, including aspirin. Avoid taking aspirin unless your doctor tells you to. Tell your doctor about all your other medicines, especially: ? any other medicines to treat or prevent blood clots; ?? a stomach acid freezer assistant such as omeprazole, Nexium, or Prilosec; ?? an antidepressant; ?? an opioid medication; ?? a blood thinner--warfarin, Coumadin, Jantoven; or ?? NSAIDs (nonsteroidal anti-inflammatory drugs)--ibuprofen (Advil, Motrin), naproxen (Aleve), celecoxib, diclofenac, indomethacin, meloxicam, and others. This list is not complete. Other drugs may affect clopidogrel, including prescription and gghd-ujg-hjovicw medicines, vitamins, and herbal products. Not all [...] to ensure that the information provided by [employer]. ('[employer]') is accurate, up-to-date, and complete, but no guarantee is made to that effect. Drug information contained herein may be time sensitive. [employer] information has been compiled for use by healthcare practitioners and consumers in the [place] and therefore [employer] does not warrant that uses outside of the [place] are appropriate, unless specifically indicated otherwise. [employer] drug information does not endorse drugs, diagnose patients or recommend therapy. [employer] drug information is an informational resource designed [...] effective or appropriate for any given patient. [employer] does not assume any responsibility for any aspect of healthcare administered with the aid of information [employer] provides. The information contained herein is not intended to cover all possible uses, directions, precautions, warnings, drug interactions, allergic reactions, or adverse effects. If you have questions about the drugs you are taking, check with your doctor, nurse or pharmacist. Copyright 7397-5846 [employer]. Version: 15.. Revision Date: 06/17/2018. ranolazine (ra [...] may report side effects to FDA at 7-604-GYF-8383. What other drugs will affect ranolazine? Many [...] interact with ranolazine. This includes prescription and heii-rkh-yspfvyr medicines, vitamins, and herbal products. Give a [...] to ensure that the information provided by [employer] ('[employer]') is accurate, up-to-date, and complete, but no guarantee is made to that effect. Drug information contained herein may be time sensitive. [employer] information has been compiled for use by healthcare practitioners and consumers in the [place] and therefore [employer] does not warrant that uses outside of the [place] are appropriate, unless specifically indicated otherwise. [employer] drug information does not endorse drugs, diagnose patients or recommend therapy. [employer] drug information is an informational resource designed [...] effective or appropriate for any given patient. [employer] does not assume any responsibility for any aspect of healthcare administered with the aid of information [employer] provides. The information contained herein is not intended to cover all possible uses, directions, precautions, warnings, drug interactions, allergic reactions, or adverse effects. If you have questions about the drugs you are taking, check with your doctor, nurse or pharmacist. Copyright 4292-8348 [employer]. Version: 11.. Revision Date: 10/14/2015. CIGARETTE SMOKING: The facts are clear, cigarette smoking will shorten your life. Smoking can cause many illnesses along the way. As a healthcare provider, we recommend that you stop smoking. Assistance with quitting is available by contacting 0-660-QXNQ-NOW. This is a free resource providing counseling, [...] Be sure to sign up for the [employer] patient portal, which gives you 19/03 access to your medical information ??? including these discharge instructions ??? using your computer, smartphone, or tablet. Just go to [employer] to get started. Questions? Call . [facility] would like to thank you for allowing us to assist you with your healthcare needs. LUCIO Morgan MARY JANE, (or instruments sales representative) have received the above patient education materials/instructions and have verbalized understanding: Patient Signature _ Date/Time Patient Delivery Manager Signature (if needed) Date/Time Clinician/Hospital Delivery Manager Signature (if needed) Date/Time documented in this encounter Plan of Treatment Not on file documented as of this encounter Visit Diagnoses Not on filedocumented in this encounter Care Teams Clinical Lab Technologist Relationship Specialty Start Date End Date Igor Meyers MD [address] [place] [id number] PCP - General Family Medicine 11/23/22 08/22/23 Provider, Not In System, CHRISTIAN SALAZAR PCP - General 08/23/23 08/27/24 [facility], [facility] [place] [address] PCP - General 08/28/24 11/06/24 [facility], [facility] [place] [address] PCP - General 11/07/24 02/22/25 [facility], Provider Not In The System, [place] [address] PCP - General 02/23/25 06/26/25 [facility], [facility] [place] [address] PCP - General 06/27/25 documented as of this encounter
--- OUTSIDE RECORDS SUMMARY | 2025-08-12 20:12 | XMS_ITS | Encounter Summary ---
Author Organization [employer] ([place], [place], [place], [place], [place]) Address [address] [place] [address] Care Team Providers Care Special Programs Director Name Role Phone Igor Meyers MD Primary Care Provider [phone] Provider, Not In System CARDIO CLINICIAN Primary Care Provid er Unavailable [facility], [facility] Primary Care Provider [facility], [facility] Primary Care Provider [facility], Provider Not In The System Primary Care Provider Unavailable [facility], [facility] Primary Care Provider Encounter Details Date Type Department Care Team (Late st Contact Info) Description 11/20/[address] [facility] Family Medicine [facility] [place] [address] ProviderRufino MD [address] [place] [address] Social History Tobacco Use Types Packs/Day Years Used Date Smoking Tobacco: Never Assessed Comments Unknown Sex and Gender Information Value Date Recorded Sex Assigned at Not on file Legal Sex Female 1:33 PM CDT Gender Identity Not on file Sexual Orientation Not on file documented as of this encounter Miscellaneous Notes * Cerner Conversion Note - Rufino ProviderMD - 11/20/2018 5:05 PM CDT Patient: ROBERTO RANDLE Age: 58 years Sex: Female : 1960 Associated Diagnoses: Chest pain Author: RIANA MALIK MD Basic Information Time seen: Date & time 11/20/2018 17:05:00, Voice recognition / brand representative technology used for some documentation in this chart in attempt to mitigate substantial inefficiencies created by this electronic health record technology. As a result, there may be some typos and/or non-sensical language introduced into the chart that either are overlooked in editing/review and/or that I am unable to correct as patient care needs require me to prioritize my attention to bedside patient care rather than electronic documentation.. . History source: EMS. Arrival mode: Ambulance. History limitation: None. Additional information: Chief Complaint from Nursing Triage Note : Chief Complaint 11/20/2018 17:05 EDT Chief Complaint c/o chest pain x 2 days, pt states hx of this and is scheduled to see dr adler sunday to discuss stents. p/w/d. . History of Present Illness Ms. Randle, presents via EMS to room #9, alone. Ms. Randle is well known to this facility as well as myself for emergency room visits for chest pain. She lives by herself and has no family members to check up on her and has known coronary artery disease. She states that she was awakened on nor around 6:00 this morning with a severe sharp left-sided chest pain. She states this radiates to her left arm and is associated with some shortness of breath and nausea. She states that she also was somewhat diaphoretic. She did not take any nitroglycerin immediately and her first dose that she administered was on or around noontime. She states that that did not provide any significant relief and did not take any further nitroglycerin. Until around 3 PM. She did not receive any significant relief and thus called EMS to transport her to the emergency department. She had a similar episode earlier this month on the third and had a negative workup which included a CTA of the chest. There was no thoracic aneurysm at that time. The patient presents with chest pain. The onset was 11 hours ago. The course/duration of symptoms is constant and fluctuating in intensity. Location: Left anterior central chest. Radiating pain: left arm. The character of symptoms is sharp. The degree at onset was moderate. The degree at maximum was moderate. The degree at present is moderate. The exacerbating factor is none. The relieving factor is none. Risk factors consist of coronary artery disease, hypertension, diabetes mellitus, obesity and hyperlipidemia. Prior episodes: cardiac and non-cardiac. Therapy today Nitroglycerin. Associated symptoms: shortness of breath, nausea, diaphoresis, denies anxiety and denies palpitations. Additional history: See note above.. Review of Systems Constitutional symptoms: No fever, no chills, no weakness, no fatigue, no decreased activity. Skin symptoms: No jaundice, no rash, no pruritus, no abrasions, no petechiae. Eye symptoms: Vision unchanged. ENMT symptoms: No sore throat, no nasal congestion. Respiratory symptoms: Shortness of breath, no orthopnea, no cough. Cardiovascular symptoms: Diaphoresis, no chest pain, no palpitations. Gastrointestinal symptoms: Nausea, no abdominal pain, no vomiting, no diarrhea, no constipation, no rectal bleeding. Genitourinary symptoms: No dysuria, no hematuria, no vaginal bleeding, no vaginal discharge. Musculoskeletal symptoms: No back pain, no Muscle pain, no Joint pain. Neurologic symptoms: No headache, no dizziness, no altered level of consciousness, no numbness, no tingling, no weakness. Psychiatric symptoms: No anxiety, no depression. Endocrine symptoms: No polyuria, no polydipsia. Hematologic/Lymphatic symptoms: Bleeding tendency negative, bruising tendency negative, no petechiae. Allergy/immunologic symptoms: No recurrent infections, no impaired immunity. Health Status Allergies: Allergic Reactions (Selected) Severe SulfADIAZINE- Itching. Moderate Sulfonamides- Itching and rash.. Medications: (Selected) Documented Medications Documented Basaglar KwikPen 100 units/mL subcutaneous solution: 13 Units, SubCutaneous, At Bedtime, 0 Refill(s) Incruse Ellipta 62.5 mcg/inh inhalation powder: 62.5 mcg, Inhalation, [id number] Nitrostat 0.4 mg sublingual tablet: 1 Tab, [...] constipation fluticasone 50 mcg/inh nasal spray: 1 [place], Nasal, Daily, in each nostril, 16 Gram, [...] mg, Oral, At Bedtime, 0 Refill(s). Immunizations: Unknown. Menstrual history: Unknown. Past Medical/ Family/ Social History Medical history Cardiovascular: coronary artery disease, hypertension, angina, myocardial infarction, congestive heart failure, hyperlipidemia. Respiratory: chronic obstructive pulmonary disease, sleep apnea. Endocrine: diabetes type 2, NIDDM. Neurological: Congenital hydrocephalus.. 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 hysterectomy. tubal. Cholecystectomy; (36447). Multiple brain surgeries. Heart surgery as child.. Family history: Reviewed as documented in chart. Social history: Social & Psychosocial Habits Alcohol 08/12/2014 Alcohol Use in Last Twelve Months No Home/Environment 08/12/2014 Lives with: Alone Home equipment: CPAP/BiPAP, Glucose monitoring Substance Abuse 08/12/2014 Recreational Drug Use History No Recreational Drug Use Last 12 Months No Tobacco 08/12/2014 Smoking Status Never smoker . Physical Examination Vital Signs Vital Signs/Vital Measures 11/20/2018 17:05 EDT Temperature Source Oral Temperature Mode Fahrenheit Temperature, Fahrenheit 97.6 Deg F Clinical Temperature, C 36.4 Deg C Peripheral Pulse Rate 68 bpm Respiratory Rate 18 Breaths/Min Systolic Blood Pressure 120 mmHg Diastolic Blood Pressure 77 mmHg Oxygen Saturation 99 % Oxygen Therapy Mode Room air . Measurements 11/20/2018 17:05 EDT Height Source Stated Height Entry Format [place] Height/Length, HONG KONGER (ft) 4 ft Height/Length [place]ONG [place]ER 11 Inch CLINICALHEIGHT 149.86 cm [place] Body Weight 42.87 kg Weight Source, ED Standing scale Weight Entry Format [place] Weight Lebanese lb 203 lb CLINICALWEIGHT 92.27 kg Body Surface Area (BSA) 1.86 m2 Body Mass Index 41.1 kg/m2 >HHI . Oxygen saturation. General: Alert, no acute distress, well nourished, calm, cooperative, well hydrated. Skin: Warm, dry, intact, no pallor, no rash. Head: Atraumatic, Large protruding for head. Neck: Supple, trachea midline, no tenderness, no JVD, no carotid bruit. Eye: Pupils are equal, round and reactive to light, extraocular movements are intact, normal conjunctiva. Ears, nose, mouth and throat: Oral mucosa moist, no pharyngeal erythema or exudate. Cardiovascular: Regular rate and rhythm, No murmur, Normal peripheral perfusion, No edema. Respiratory: Lungs are clear to auscultation, respirations are non-labored, breath sounds are equal, Symmetrical chest wall expansion. Chest wall: No tenderness, No deformity. Back: Nontender, Normal range of motion. Musculoskeletal: Normal ROM, normal strength, no tenderness, no swelling. Gastrointestinal: Soft, Nontender, Non distended, Normal bowel sounds, No organomegaly. Genitourinary: Exam deferred. Neurological: Alert and oriented to person, place, time, and situation, No focal neurological deficit observed. Lymphatics: No lymphadenopathy. Psychiatric: Cooperative, appropriate mood & affect. Medical Decision Making Differential Diagnosis: Unstable angina, angina, atypical chest pain, costochondritis, chest wall pain. Documents reviewed: Emergency department nurses' notes, emergency department records, prior records. Orders Include Previous Orders (Selected) Inpatient Orders Ordered Blood Pressure: Consult to Dietitian: ED Fall Risk Documented: EKG: EKG: Place in Observation: Ordered (Exam Completed) CR Chest 1 Vw Portable: Completed CBC no Diff (Hemogram): CMP Comprehensive Metabolic Panel: Cardiac Monitoring: ED Adult Fall Risk Assessment: ED Adult Triage: ED Clinical Reconciliation: ED heading machine operator: Normal Saline Bolus: 250 mL, 250 mL/Hr, IV Piggyback, 1-Time ProBNP: Pulse Oximetry Continuous Monitoring: Saline Lock Insert: Toradol: 30 mg, IV Push, 1-Time Troponin I Ultra: Troponin I Ultra: Zofran: 4 mg, IV Push, 1-Time Zofran: 4 mg, IV Push, 1-Time morphine: 4 mg, IV Push, 1-Time. Electrocardiogram: Time 11/20/2018 17:04:00, rate 71, QT interval WNL, Previous EKG available No changes, compared with 11/08/2018 14:21:00, Interpretation by Emergency Physician Interpreted by me contemporaneously with care, No STEMI, no ischemic changes. Electrocardiogram: Time 11/20/2018 19:28:00, rate 75, Interpretation by Emergency Physician Interpreted by me contemporaneously with care, no significant interval changes, , No STEMI. Results review: Lab results : Lab Results 11/20/2018 17:45 EDT Sodium Level 141 mmol/L Potassium Level 3.6 mmol/L Chloride Level 111 mmol/L Carbon Dioxide Level 23 mmol/L Anion Gap 11 Glucose Level 113 mg/dL HI Blood Urea Nitrogen 18 mg/dL Creatinine Level 0.70 mg/dL eGFR >60 mL/min/1.73m2 eGFR NonAfrican >60 mL/min/1.73m2 Bun/Creatinine 25.7 HI Calcium Level 9.0 mg/dL Protein Total 7.1 Gram/dL Albumin Level 3.5 Gram/dL Globulin 3.6 Gram/dL A/G Ratio 1.0 LOW Bilirubin Total 0.2 mg/dL Alk Phos 90 Units/Liter AST 25 Units/Liter ALT 33 Units/Liter Troponin I Ultra <0.015 ng/mL ProBNP 84 pg/mL WBC 11.3 K/uL HI RBC 4.80 Million/uL Hgb 13.4 Gram/dL Hct 41.6 % MCV 86.7 fL MCH 27.9 pg MCHC 32.2 Gram/dL LOW Platelet Count 243 K/uL MPV 10.9 fL RDW 14.2 % Slide Review No . Procedure Critical care note Total time: 30 minutes spent engaged in work directly related to patient care and/ or available for direct patient care. Critical condition(s) addressed for impending deterioration include: cardiovascular. Management: bedside assessment, Interpretation (chest x-ray, electrocardiogram), Case review director global medical affairs. Performed by: self. Heart Score Heart History: Slightly suspicious. EKG: Non-specific repolarization disturbance. Age: 45 - 65: Yes +1. Risk Factors: Risk Factors include: Hypercholesterolemia, Hypertension, Diabetes Mellitus, Obesity, Greater than or equal to 3 risk factors: Yes +2. Troponin: Less than or equal to normal limit: Yes 0. Scorin to 6: 13% risk of MACE. Impression and Plan Diagnosis Chest pain - Discharge, Emergency medicine, Medical Calls-Consults - 11/20/2018 20:20:00 , JED ROSALES MD-CAR, Cardiology, phone call, recommends obs on tele gen. admission orders. Plan Condition: Improved, Stable. Counseled: Patient, Regarding diagnosis, Regarding diagnostic results, Regarding treatment plan, Patient indicated understanding of instructions. Electronically signed by [facility] Conversion Psychodramatist Cerner at 12/10/2022 6:40 PM CDT documented in this encounter Plan of Treatment Not on file documented as of this encounter Visit Diagnoses Not on filedocumented in this encounter Care Teams Special Programs Director Relationship Specialty Start Date End Date Igor Meyers MD [address] [place] [address] PCP - General Family Medicine 11/23/22 08/22/23 Provider, Not In System, CHRISTIAN SALAZAR PCP - General 08/23/23 08/27/24 [facility], [facility] [place], [place] [id number] PCP - General 08/28/24 11/06/24 [facility], [facility] [place], [place] [id number] PCP - General 11/07/24 02/22/25 [facility], Provider Not In The System, [place] [address] PCP - General 02/23/25 06/26/25 [facility], [facility] [place], [place] [id number] PCP - General 06/27/25 documented as of this encounter
--- OUTSIDE RECORDS SUMMARY | 2025-08-12 20:12 | XMS_ITS | Encounter Summary ---
Author Organization [employer] ([place], [place], [place], [place], [place]) Address [address] [place] [address] Care Team Providers Care Almond Grinder Name Role Phone Igor Meyers MD Primary Care Provider [phone] Provider, Not In System COUNTY RECORDS MANAGEMENT OFFICER Primary Care Provid er Unavailable [facility] Connection, Find-A-Doc Primary Care Provider [facility], [facility]Doc Primary Care Provider [facility], Provider Not In The System Primary Care Provider Unavailable [facility] Connection, Find-A-Doc Primary Care Provider Encounter Details Date Type Department Care Team (Late st Contact Info) Description 11/20/2018 Transcribed Document [facility] Family Medicine [facility] [place] [address] ProviderRufino MD [address] [place] [address] Social History Tobacco Use Types Packs/Day [...] ProviderMD - 11/20/2018 5:03 PM CDT ED Triage Entered On: 11/20/2018 17:08 EDT Performed On: 11/20/2018 17:05 EDT by LEE BLAKELY BATCH TESTER Triage Across the Room Triage Date/Time : 11/20/2018 17:05 EDT Chief Complaint : c/o chest pain x 2 days, pt states hx of this and is scheduled to see dr adler sunday to discuss stents. p/w/d. LEE BLAKELY RN - 11/20/2018 17:05 EDT DCP GENERIC CODE Tracking Acuity : 3 - Urgent Tracking Group [facility] LEE BLAKELY RN - 11/20/2018 17:05 EDT Mode of Arrival : Stretcher Transported to ED by : Ambulance/BLS EMS Service : Psychiatric To Room Via : Stretcher Accompanied By : Unaccompanied ED Vital Signs : Document Height & Weight : Document ED Allergies : Document ED Reason for Visit : Document Tetanus Immunization : Less than 5 years LEE BLAKELY RN - 11/20/2018 17:05 EDT Infectious Disease History Infectious Disease History : Chicken pox/Shingles, Herpes, Measles, Mumps Fever/Chills Last 48 Hours : No Travel To Regions with Travel Advisories : No Travel Outside [place] Within Last 30 Days : No Contact With Traveler to Advisory Region : No Tuberculosis Symptoms : None LEE BLAKELY RN - 11/20/2018 17:05 EDT Vital Signs ED Temperature Source : Oral Temperature Mode : Fahrenheit Temperature, Fahrenheit : 97.6 Deg F ED Pain : Yes Clinical Temperature, C : 36.4 Deg C Oxygen Therapy Mode : Room air Peripheral Pulse Rate : 68 bpm Respiratory Rate : 18 Breaths/Min Systolic Blood Pressure : 120 mmHg Diastolic Blood Pressure : 77 mmHg Oxygen Saturation : 99 % LEE BLAKELY RN - 11/20/2018 17:05 EDT Allergy (As Of: 11/20/2018 17:09:00 EDT) Allergies (Active) sulfADIAZINE Estimated Onset Date: Unspecified ; Reactions: itching ; Created By: Ella Phelan Rn; Reaction Status: Active ; Category: Drug ; Substance: sulfADIAZINE ; Type: Allergy ; Severity: Severe ; Updated By: Ella Phelan Rn; Reviewed Date: 11/20/2018 17:07 EDT sulfonamides Estimated Onset Date: Unspecified ; Reactions: Itching, Rash ; Created By: Diana Michel, Pharmacist-Resident; Reaction Status: Active ; Category: Drug ; Substance: sulfonamides ; Type: Allergy ; Severity: Moderate ; Updated By: Diana Michel, Pharmacist-Resident; Source: Patient ; Reviewed Date: 11/20/2018 17:07 EDT Diagnosis Control ED (As Of: 11/20/2018 17:09:00 EDT) Problems(Active) Apnea, sleep (SNOMED CT :228087193 ) Name of Problem: Apnea, sleep ; Recorder: Sheryl Burnett RN; Confirmation: Confirmed ; Classification: Patient Stated ; Code: [id number] ; Contributor System: RaffstarChart ; Last Updated: 08/12/2014 20:25 EST ; Life Cycle Date: 08/12/2014 ; Life Cycle Status: Active ; Vocabulary: SNOMED CT Chronic CHF (SNOMED CT :318088019 ) Name of Problem: Chronic CHF ; Recorder: Sheryl Burnett RN; Confirmation: Confirmed ; Classification: Patient Stated ; Code: [id number] ; Contributor System: RaffstarChart ; Last Updated: 08/12/2014 20:25 EST ; Life Cycle Date: 08/12/2014 ; Life Cycle Status: Active ; Vocabulary: SNOMED CT COPD (chronic obstructive pulmonary disease) with emphysema (SNOMED CT :808725419 ) Name of Problem: COPD (chronic obstructive pulmonary disease) with emphysema ; Recorder: Sheryl Burnett RN; Confirmation: Confirmed ; Classification: Patient Stated ; Code: [id number] ; Contributor System: RaffstarChart ; Last Updated: 08/12/2014 20:25 EST ; Life Cycle Date: 08/12/2014 ; Life Cycle Status: Active ; Vocabulary: SNOMED CT Diabetes (SNOMED CT :797267983 ) Name of Problem: Diabetes ; Recorder: Sheryl Burnett RN; Confirmation: Confirmed ; Classification: Patient Stated ; Code: 752884886 ; Contributor System: PowerChart ; Last Updated: 08/12/2014 20:24 EST ; Life Cycle Date: 08/12/2014 ; Life Cycle Status: Active ; Vocabulary: SNOMED CT Genital herpes (SNOMED CT :83628874 ) Name of Problem: Genital herpes ; Recorder: Sheryl Burnett RN; Confirmation: Confirmed ; Classification: Patient Stated ; Code: 57602955 ; Contributor System: RaffstarChart ; Last Updated: 08/12/2014 20:25 EST ; Life Cycle Date: 08/12/2014 ; Life Cycle Status: Active ; Vocabulary: SNOMED CT History of obstructive sleep apnea (IMO :28397212 ) Name of Problem: History of obstructive sleep apnea ; Recorder: SYSTEM, SYSTEM; Confirmation: Confirmed ; Classification: Medical ; Code: 70693894 ; Last Updated: 03/07/2018 10:59 EDT ; Life Cycle Date: 03/07/2018 ; Life Cycle Status: Active ; Vocabulary: IMO HTN (hypertension) (SNOMED CT :6902243114 ) Name of Problem: HTN (hypertension) ; Recorder: Sheryl Burnett RN; Confirmation: Confirmed ; Classification: Patient Stated ; Code: 7380750542 ; Contributor System: RaffstarChart ; Last Updated: 08/12/2014 20:24 EST ; Life Cycle Date: 08/12/2014 ; Life Cycle Status: Active ; Vocabulary: SNOMED CT Hydrocephalus (SNOMED CT :531591445 ) Name of Problem: Hydrocephalus ; Recorder: Sheryl Burnett RN; Confirmation: Confirmed ; Classification: Patient Stated ; Code: 228866225 ; Contributor System: PowerChart ; Last Updated: 08/12/2014 20:24 EST ; Life Cycle Date: 08/12/2014 ; Life Cycle Status: Active ; Vocabulary: SNOMED CT Hyperlipemia (SNOMED CT :40449289 ) Name of Problem: Hyperlipemia ; Recorder: Sheryl Burnett RN; Confirmation: Confirmed ; Classification: Patient Stated ; Code: 17942077 ; Contributor System: PowerChart ; Last Updated: 08/12/2014 20:24 EST ; Life Cycle Date: 08/12/2014 ; Life Cycle Status: Active ; Vocabulary: SNOMED CT Myocardial infarction (SNOMED CT :72386937 ) Name of Problem: Myocardial infarction ; Recorder: Sheryl Burnett RN; Confirmation: Confirmed ; Classification: Patient Stated ; Code: 64092981 ; Contributor System: PowerChart ; Last Updated: 08/12/2014 20:25 EST ; Life Cycle Date: 08/12/2014 ; Life Cycle Status: Active ; Vocabulary: SNOMED CT Diagnoses(Active) Chest pain Date: 11/20/2018 ; Diagnosis Type: Reason For Visit ; Confirmation: Complaint of ; Clinical Dx: Chest pain ; Classification: Medical ; Clinical Service: Emergency medicine ; Code: PNED ; Probability: 0 ; Diagnosis Code: [id number] ED Height and Weight Height Source : Stated Height Entry Format : [place] Height, Feet : 4 ft(Converted to: 122 cm, 48 Inch) Height, Inches : 11 Inch(Converted to: 0 ft 11 Inch, 27.94 cm) Clinical Height : 149.86 cm Weight Source, ED : Standing scale Weight Entry Format : [place] Weight, Pounds : 203 lb Clinical Dosing Weight : 92.27 kg Body Surface Area (BSA) : 1.86 m2 Body Mass Index : 41.1 kg/m2 (>HHI) [place] Body Weight (IBW) : 42.87 kg LEE BLAKELY RN - 11/20/2018 17:05 EDT Pain Assessment Pain Assessment : Initial assessment Pain Scale Used : 0-10 Scale Location : Chest LEE BLAKELY RN - 11/20/2018 17:05 EDT Pain Scale Intensity : 8 LEE BLAKELY RN - 11/20/2018 17:05 EDT Image 4 - Images currently included in the form version of this document have not been included in the text rendition version of the form. ED Influenza/Pneumoccocal Vaccine Influenza Immunization, Current Season : Yes Previous Vaccines from Immunization Schedule : No qualifying data available. LEE BLAKELY RN - 11/20/2018 17:05 EDT documented in this encounter Plan of Treatment Not on file documented as of this encounter Visit Diagnoses Not on filedocumented in this encounter Care Teams Almond Grinder Relationship Specialty Start Date End Date Igor Meyers MD [address] [place] [address] PCP - General Family Medicine 11/23/22 08/22/23 Provider, Not In System, CHRISTIAN SALAZAR PCP - General 08/23/23 08/27/24 [facility], Find-A-Doc [facility]-a-Doc [place], [place] [id number] PCP - General 08/28/24 11/06/24 [facility], [facility] Find-a-Doc [place], [place] [id number] PCP - General 11/07/24 02/22/25 [facility], Provider Not In The System, [place] [address] PCP - General 02/23/25 06/26/25 [facility], [facility] [place] [address] PCP - General 06/27/25 documented as of this encounter
--- OUTSIDE RECORDS SUMMARY | 2025-08-12 20:12 | XMS_ITS | Encounter Summary ---
Author Organization [employer] ([place], [place], [place], [place], [place]) Address [address] [place] [address] Care Team Providers Care Remote Computer Terminal Operator Name Role Phone Igor Meyers MD Primary Care Provider [phone] Provider, Not In System SHEET ROCK LAYER Primary Care Provid er Unavailable [facility] Connection, Find-A-Doc Primary Care Provider [facility] Connection, Find[facility]A-Doc Primary Care Provider [facility], Provider Not In The System Primary Care Provider Unavailable [facility] Connection, Find-A-Doc Primary Care Provider Encounter Details Date Type Department Care Team (Late st Contact Info) Description 11/20/2018 Transcribed Document [facility] [place] [address] ProviderRufino MD [address] [place] [address] Social History Tobacco Use Types [...] Historical ProviderMD - 11/20/2018 11:05 PM CDT [place] [address] [place] [address] PERSON INFORMATION Name ROBERTO RANDLE Age 58 Years 1960 Sex Female Language Burkinan PCP POLINA LAYNE (REF), -MED Marital Status Single Med Service Cardiology Acct# Arrival 11/20/2018 17:03:00 Visit Reason Chest pain; CHEST PAIN, UNSPECIFIED Acuity 3 - Urgent LOS 000 06:02 Depart Date: 00:00 AM Address: [address] [facility] [address] Comment: PROVIDER INFORMATION Provider Role Assigned Unassigned RIANA MALIK MD ED Physician 11/20/2018 17:06:03 LEE BLAKELY, STAFF ANTISUBMARINE OFFICER Nurse 11/20/2018 18:03:07 11/20/2018 19:33:30 HYUN APODACA, STAFF ANTISUBMARINE OFFICER Nurse 11/20/2018 19:33:31 DIAGNOSIS Chest pain PHYS DOC NOTES VITALS INFORMATION Vital Sign Triage Latest Temp Source Oral Oral Temp Mode Fahrenheit Fahrenheit Temp Fahrenheit 97.6 Deg F 97.6 Deg F Temp Celsius 02 Sat 99 % 96 % Respiratory Rate 18 Breaths/Min 19 Breaths/Min Peripheral Pulse Rate 68 bpm 68 bpm Apical Heart Rate Blood Pressure 120 mmHg / 77 mmHg 110 mmHg / 55 mmHg Comment: MEDICAL INFORMATION Allergy Info: sulfADIAZINE; sulfonamides Medications: Comment: DISCHARGE INFORMATION Discharge Disposition: Admitted as Inpatient Discharge Location: PATIENT EDUCATION INFORMATION Instructions: Follow up: Comment: documented in this encounter Plan of Treatment Not on file documented as of this encounter Visit Diagnoses Not on filedocumented in this encounter Care Teams Remote Computer Terminal Operator Relationship Specialty Start Date End Date Igor Meyers MD [address] [place] [address] PCP - General Family Medicine 11/23/22 08/22/23 Provider, Not In System, CHRISTIAN [place] PCP - General 08/23/23 08/27/24 [facility], [facility]Doc [facility] [place] [address] PCP - General 08/28/24 11/06/24 [facility], [facility] [place] [address] PCP - General 11/07/24 02/22/25 [facility], Provider Not In The System, [place] [address] PCP - General 02/23/25 06/26/25 [facility] Connection, Find[facility]A-Doc [facility] [address] PCP - General 06/27/25 documented as of this encounter
--- OUTSIDE RECORDS SUMMARY | 2025-08-12 20:12 | XMS_ITS | Encounter Summary ---
Author Organization [employer] ([place], [place], [place], [place], [place]) Address [address] [place] [address] Care Team Providers Care Refrigeration Plant Cork Insulator Name Role Phone Igor Meyers MD Primary Care Provider [phone] Provider, Not In System HYDRAULIC JACK OPERATOR Primary Care Provid er Unavailable [facility] Connection, Find-A-Doc Primary Care Provider [facility], [facility]Doc Primary Care Provider [facility], Provider Not In The System Primary Care Provider Unavailable [facility] Connection, Find-A-Doc Primary Care Provider Encounter Details Date Type Department Care Team (Late st Contact Info) Description 11/21/2018 Transcribed Document [facility] [place] [facility] [place] [address] ProviderRufino MD [address] [place] [address] Social History Tobacco Use Types Packs/Day Years Used Date Smoking Tobacco: Never Assessed Comments Unknown Sex and Gender Information Value Date Recorded Sex Assigned at Not on file Legal Sex Female 1:33 PM CDT Gender Identity Not on file Sexual Orientation Not on file documented as of this encounter Miscellaneous Notes * Cerner Conversion Note - Historical ProviderMD - 11/21/2018 10:24 AM CDT Therapy Screen, OT Entered On: 11/21/2018 10:51 EDT Performed On: 11/21/2018 10:24 EDT by HEATHER MICHELE OTR/Carmelita Therapy Screen, OT Medical Chart Reviewed : Yes Person Providing Information : Patient Screen Completed : Yes Recommendations for Evaluation OT : Do not recommend Occupational Therapy evaluation Therapy Screen Findings, OT : Patient at functional baseline Recommendations Upon Discharge : None Additional Therapy Screen Comment : Pt reports she is I with ADLs, functional mobility, and does not need any therapy at this time. No further skilled OT indicated. HEATHER MICHELE, OTR/L - 11/21/2018 10:50 EDT Electronically signed by [facility] Conversion Him Manager Cerner at 12/10/2022 6:34 PM CDT documented in this encounter Plan of Treatment Not on file documented as of this encounter Visit Diagnoses Not on filedocumented in this encounter Care Teams Refrigeration Plant Cork Insulator Relationship Specialty Start Date End Date Igor Meyers MD [address] [place] [address] PCP - General Family Medicine 11/23/22 08/22/23 Provider, Not In System, CHRISTIAN SALAZAR PCP - General 08/23/23 08/27/24 [facility] Connection, Find[facility]Doc [facility] [place] [address] PCP - General 08/28/24 11/06/24 [facility] Connection, [facility]Doc [facility] [place] [address] PCP - General 11/07/24 02/22/25 [facility], Provider Not In The System, [place] [address] PCP - General 02/23/25 06/26/25 [facility] Connection, [facility]Doc [facility] [place] [address] PCP - General 06/27/25 documented as of this encounter
--- OUTSIDE RECORDS SUMMARY | 2025-08-12 20:12 | XMS_ITS | Encounter Summary ---
Author Organization [employer] ([place], [place], [place], [place], [place]) Address [address] [place] [address] Care Team Providers Care Snagger Name Role Phone Igor Meyers MD Primary Care Provider [phone] Provider, Not In System SOLAR TECH Primary Care Provid er Unavailable [facility] Connection, Find-A-Doc Primary Care Provider [facility], [facility]Doc Primary Care Provider [facility], Provider Not In The System Primary Care Provider Unavailable [facility] Connection, Find-A-Doc Primary Care Provider Encounter Details Date Type Department Care Team (Late st Contact Info) Description 11/20/2018 Transcribed Document [facility] [place] [place] [address] [place] [address] ProviderRufino MD [address] [place] [address] Social History Tobacco Use Types Packs/Day Years Used Date Smoking Tobacco: Never Assessed Comments Unknown Sex and Gender Information Value Date Recorded Sex Assigned at Not on file Legal Sex Female 1:33 PM CDT Gender Identity Not on file Sexual Orientation Not on file documented as of this encounter Miscellaneous Notes * Cerner Conversion Note - Historical ProviderMD - 11/20/2018 11:57 PM CDT Care Management Assessment/Plan Entered On: 11/21/2018 10:05 EDT Performed On: 11/21/2018 10:03 EDT by Estelle Eastman RN Care Management Note Anticipated Discharge Date : 11/22/2018 21:00 EDT Care Management Note : Chart review and patient interview. Patient admitted with chest pain, hx of COPD, CHF, HTN. Patient verfies address, phone and primary provider. Patient resides alone and is disabled. CPAP is the only DME in use, no services in place. Patient uses [employer] as transportation ([phone]). LOW readmission score, home plan. CM will need to call the transportation for discharge to home...arh Documentation Status Complete : Yes Estelle Eastman, RN - 11/21/2018 10:03 EDT Patient History Information Obtained from, Care Mgt : Patient, Medical Record Current Primary Care Physician : Salazar Tripp Emergency Contact #1 : Travon Giang Emergency Contact #1 Emergency Contact #1 Relationship : Brother Emergency Contact #2 : n/a Emergency Contact #2 Phone Number : n/a Emergency Contact #2 Relationship : n/a Living Situation : Home Patient Lives With : Alone Mobility Assistance Prior to Admission : Independent Current Daily Living Assistance : Transportation Current Home Treatments : Blood glucose monitoring, CPAP Home Equipment : CPAP unit Frequent Hospitalizations or ED Visits : No Estelle Eastman, RN - 11/21/2018 10:03 EDT Final Discharge Disposition Note-CM Discharge To Care Management : Home/Residential/Jail or Self Care -01 Estelle Eastman, RN - 11/21/2018 10:03 EDT documented in this encounter Plan of Treatment Not on file documented as of this encounter Visit Diagnoses Not on filedocumented in this encounter Care Teams Snagger Relationship Specialty Start Date End Date Igor Meyers MD [address] [place] [address] PCP - General Family Medicine 11/23/22 08/22/23 Provider, Not In System, CHRISTIAN SALAZAR PCP - General 08/23/23 08/27/24 [facility] Find[facility]Doc [facility] [place] [address] PCP - General 08/28/24 11/06/24 [facility], [facility]Doc [facility] [place] [address] PCP - General 11/07/24 02/22/25 [facility], Provider Not In The System, [place] [address] PCP - General 02/23/25 06/26/25 [facility], [facility]Doc [facility] [place] [address] PCP - General 06/27/25 documented as of this encounter
--- OUTSIDE RECORDS SUMMARY | 2025-08-12 20:12 | XMS_ITS | Encounter Summary ---
Author Organization [employer] ([place], [place], [place], [place], [place]) Address [address] [place] [address] Care Team Providers Care Maintenance Of Way Superintendent Name Role Phone Igor Meyers MD Primary Care Provider [phone] Provider, Not In System SIGNAL MAINTAINER HELPER Primary Care Provid er Unavailable [facility], [facility]Doc Primary Care Provider [facility], [facility] Primary Care Provider [facility], Provider Not In The System Primary Care Provider Unavailable [facility], [facility]Doc Primary Care Provider Encounter Details Date Type Department Care Team (Late st Contact Info) Description 11/21/2018 Transcribed Document [facility] [place] [facility] [place] [place] [address] ProviderRufino MD [address] [place] [address] Social History Tobacco Use Types Packs/Day [...] Historical ProviderMD - 11/21/2018 10:51 AM CDT [facility] [address], [place] [address] Patient Copy Patient Information: Name: ROBERTO RANDLE Current Date: 11/21/2018 10:51:24 : 1960 Patient Address: [address] [address] Patient Attending Physician: Primary Care Provider: POLINA LAYNE (REF), -MED Primary Care Provider Discharge Diagnosis: Chest pain; Chest pain in adult Weight on Admission: 203 lb, 0 oz Weight at Discharge: 198 lb, 6 oz Comment: Follow-up Instructions: With: Address: When: [address] [place] [address] Business (1) Within 1 week Comments: Office to call with appoint/instructions Discharge Instructions: Diet after Discharge: Heart healthy diet Activity after Discharge: As tolerated Immunizations Documented During Stay: No Immunizations Found Heart Failure Discharge Instructions (if any): Stroke Related Discharge Instructions (if any): Warfarin Related Discharge Instructions (if any): Final Medication List: [facility] [place], [place], [address] [place], [place] [id number], [phone] clopidogrel (Plavix 75 mg oral tablet) 1 [...] nasal (fluticasone 50 mcg/inh nasal spray) 1 [place]ancock(s) Nasal Every Day. in each nostril. furosemide [...] physical activity. 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 What are the causes? Atherosclerosis is [...] 08/13/2006 Document Revised: 01/24/2017 Document Reviewed: 12/15/2014 [employer] Patient Education ? 2017 [employer] Chest Wall Pain Introduction Chest wall [...] minutes, 2?3 times per day. ??? Take toey-qwo-xblshnc and prescription medicines only as told by [...] may report side effects to FDA at 7-224-KGW-2785. What other drugs will affect clopidogrel? Certain other medicines may increase your risk of bleeding, including aspirin. Avoid taking aspirin unless your doctor tells you to. Tell your doctor about all your other medicines, especially: ? any other medicines to treat or prevent blood clots; ?? a stomach acid stroboscope operator such as omeprazole, Nexium, or Prilosec; ?? an antidepressant; ?? an opioid medication; ?? a blood thinner--warfarin, Coumadin, Jantoven; or ?? NSAIDs (nonsteroidal anti-inflammatory drugs)--ibuprofen (Advil, Motrin), naproxen (Aleve), celecoxib, diclofenac, indomethacin, meloxicam, and others. This list is not complete. Other drugs may affect clopidogrel, including prescription and sxwy-mwx-frnkqgi medicines, vitamins, and herbal products. Not all [...] to ensure that the information provided by [employer]. ('[employer]') is accurate, up-to-date, and complete, but no guarantee is made to that effect. Drug information contained herein may be time sensitive. [employer] information has been compiled for use by healthcare practitioners and consumers in the [place] and therefore [employer] does not warrant that uses outside of the [place] are appropriate, unless specifically indicated otherwise. [employer] drug information does not endorse drugs, diagnose patients or recommend therapy. [employer] drug information is an informational resource designed [...] effective or appropriate for any given patient. [employer] does not assume any responsibility for any aspect of healthcare administered with the aid of information [employer] provides. The information contained herein is not intended to cover all possible uses, directions, precautions, warnings, drug interactions, allergic reactions, or adverse effects. If you have questions about the drugs you are taking, check with your doctor, nurse or pharmacist. Copyright 4802-7144 [employer]. Version: 15.. Revision Date: 06/17/2018. ranolazine (ra [...] may report side effects to FDA at 1-727-AEO-5489. What other drugs will affect ranolazine? Many [...] interact with ranolazine. This includes prescription and vnyc-ynh-iezsiwe medicines, vitamins, and herbal products. Give a [...] to ensure that the information provided by [employer]. ('[employer]') is accurate, up-to-date, and complete, but no guarantee is made to that effect. Drug information contained herein may be time sensitive. [employer] information has been compiled for use by healthcare practitioners and consumers in the [place] and therefore [employer] does not warrant that uses outside of the [place] are appropriate, unless specifically indicated otherwise. [employer] drug information does not endorse drugs, diagnose patients or recommend therapy. [employer] drug information is an informational resource designed [...] effective or appropriate for any given patient. [employer] does not assume any responsibility for any aspect of healthcare administered with the aid of information [employer] provides. The information contained herein is not intended to cover all possible uses, directions, precautions, warnings, drug interactions, allergic reactions, or adverse effects. If you have questions about the drugs you are taking, check with your doctor, nurse or pharmacist. Copyright 6702-5385 [employer]. Version: 11.. Revision Date: 10/14/2015. CIGARETTE SMOKING: The facts are clear, cigarette smoking will shorten your life. Smoking can cause many illnesses along the way. As a healthcare provider, we recommend that you stop smoking. Assistance with quitting is available by contacting 7-782-SNZG-NOW. This is a free resource providing counseling, [...] Be sure to sign up for the [employer] patient portal, which gives you 19/03 access to your medical information ??? including these discharge instructions ??? using your computer, smartphone, or tablet. Just go to [employer] to get started. Questions? Call . [facility] would like to thank you for allowing us to assist you with your healthcare needs. LUCIO Morgan MARY JANE, (or abrasives sales representative) have received the above patient education materials/instructions and have verbalized understanding: Patient Signature _ Date/Time Patient Legal Consultant Signature (if needed) Date/Time Clinician/Hospital Legal Consultant Signature (if needed) Date/Time Electronically signed by Interface, [facility] Conversion Fire Regulator Cerner at 12/10/2022 6:29 PM CDT documented in this encounter Plan of Treatment Not on file documented as of this encounter Visit Diagnoses Not on filedocumented in this encounter Care Teams Maintenance Of Way Superintendent Relationship Specialty Start Date End Date Igor Meyers MD [address] [place] [address] PCP - General Family Medicine 11/23/22 08/22/23 Provider, Not In System, CHRISTIAN SALAZAR PCP - General 08/23/23 08/27/24 [facility], [facility] [place] [address] PCP - General 08/28/24 11/06/24 [facility], [facility] [place] [address] PCP - General 11/07/24 02/22/25 [facility], Provider Not In The System, [place] [address] PCP - General 02/23/25 06/26/25 [facility], [facility] [place] [address] PCP - General 06/27/25 documented as of this encounter
--- OUTSIDE RECORDS SUMMARY | 2025-08-12 20:12 | XMS_ITS | Encounter Summary ---
Author Organization [employer] ([place], [place], [place], [place], [place]) Address [address] [place] [address] Care Team Providers Care Recreation Instructor Name Role Phone Igor Meyers MD Primary Care Provider [phone] Provider, Not In System AUTOMOTIVE WARRANTY ADMINISTRATOR Primary Care Provid er Unavailable [facility], [facility]Doc Primary Care Provider [facility], [facility] Primary Care Provider [facility], Provider Not In The System Primary Care Provider Unavailable [facility], [facility]Doc Primary Care Provider Encounter Details Date Type Department Care Team (Late st Contact Info) Description 11/21/2018 Transcribed Document [facility] [place] [facility] [place] [address] ProviderRufino MD [address] [place] [address] Social History Tobacco Use Types Packs/Day Years Used Date Smoking Tobacco: Never Assessed Comments Unknown Sex and Gender Information Value Date Recorded Sex Assigned at Not on file Legal Sex Female 1:33 PM CDT Gender Identity Not on file Sexual Orientation Not on file documented as of this encounter Miscellaneous Notes * Cerner Conversion Note - Rufino ProviderMD - 11/21/2018 7:51 AM CDT Patient: ROBERTO RANDLE Age: 58 years Sex: Female : 1960 Associated Diagnoses: None Author: RADHAMES PEREZ APRN Chief Complaint chest pain History of Present Illness 58 wf remote CAD, without prior stenting recent stress imaging study dr ochoa in [place] SDS 1, presents 2 weeks of constanty sharp shooting left sided cp non radiating mild soa at rest.worse with deep breath and better with not taking deep breaths. EKG sr. Trop neg. l3/15 she was eval in office at [place] dr ochoa. told about her stress and immediately came to ER. We called and discussed with Dr. ochao office the results of stress at that time which was low risk SDS 1. [facility] 12/2017 septal branch small. 50% rca at that time. Review of Systems Constitutional: No fever, No chills, No sweats. Eye: No double vision, No visual disturbances. Ear/Nose/Mouth/Throat: No nasal congestion, No sore throat. Respiratory: No shortness of breath, No cough, No sputum production. Cardiovascular: No palpitations, No bradycardia, No tachycardia, No peripheral edema, No syncope Chest pain: Left sided, Anterior. Gastrointestinal: No nausea, No vomiting, No diarrhea. Genitourinary: No dysuria, No hematuria. Hematology/Lymphatics: No bruising tendency. Endocrine: No excessive thirst, No polyuria, No cold intolerance. Immunologic: Not immunocompromised, No recurrent fevers. Musculoskeletal: No neck pain, No joint pain, No muscle pain. Integumentary: No rash, No pruritus. Neurologic: No abnormal balance, No confusion. Psychiatric: No anxiety, No depression. 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 hysterectomy. tubal. Cholecystectomy; (39158). Multiple brain surgeries. Heart surgery as child. Social History Social & Psychosocial Habits Alcohol 08/12/2014 Alcohol Use in Last Twelve Months No Home/Environment 08/12/2014 Lives with: Alone Home equipment: CPAP/BiPAP, Glucose monitoring Substance Abuse 08/12/2014 Recreational Drug Use History No Recreational Drug Use Last 12 Months No Tobacco 08/12/2014 Smoking Status Never smoker . Physical Examination VS/Measurements Vitals Signs (last 24 hrs) Last Charted Minimum Maximum Temp 97.6 (NOV 21 06:43) 97.6 (NOV 21 06:43) 97.6 (NOV 20 17:05) Mon HR 57 (NOV 21 06:43) 57 (NOV 21 06:43) 84 (NOV 20 20:55) Periph HR 68 (NOV 20 23:04) 68 (NOV 20 17:05) 70 (NOV 20 18:00) Resp Rate 18 (NOV 21 06:43) 16 (NOV 20 19:15) H 24 (NOV 20 20:55) SBP 94 (NOV 21 06:43) 94 (NOV 21 06:43) 124 (NOV 20 20:55) DBP 63 (NOV 21 06:43) L 53 (NOV 20 22:11) 77 (NOV 20 17:05) MAP 70 (NOV 21 06:43) 70 (NOV 21 06:43) 88 (NOV 20 20:55) SpO2 95 (NOV 21 06:43) 95 (NOV 20 22:11) 99 (NOV 20 17:05) General: Alert and oriented, No acute distress. Eye: Pupils are equal, round and reactive to light, Normal conjunctiva. HENT: Normocephalic, Normal hearing. Neck: Supple, Non-tender, No jugular venous distention. Respiratory: Lungs are clear to auscultation, Respirations are non-labored, Breath sounds are equal, Symmetrical chest wall expansion. Cardiovascular: Normal rate, Regular rhythm, No murmur, No gallop, Good pulses equal in all extremities, Normal peripheral perfusion, No edema. Gastrointestinal: Soft, Non-tender, Non-distended, Normal bowel sounds. Lymphatics: No lymphadenopathy neck, axilla, groin. Musculoskeletal: Normal range of motion, Normal strength. Integumentary: Warm, Dry, [place]. Neurologic: Alert, Oriented. Cognition and Speech: Oriented, Speech clear and coherent. Psychiatric: Cooperative, Appropriate mood & affect. Review / Management Results review: Labs (Last four charted values) WBC H 12.0 (NOV 21) H 11.3 (NOV 20) HB 14.1 (NOV 21) 13.4 (NOV 20) HCT 42.5 (NOV 21) 41.6 (NOV 20) Plt 239 (NOV 21) 243 (NOV 20) Na 142 (NOV 21) 141 (NOV 20) K 3.8 (NOV 21) 3.6 (NOV 20) Cl 111 (NOV 21) 111 (NOV 20) CO2 23 (NOV 21) 23 (NOV 20) BUN 20 (NOV 21) 18 (NOV 20) Cr 0.68 (NOV 21) 0.70 (NOV 20) Glu R H 152 (NOV 21) H 113 (NOV 20) Ca 9.0 (NOV 21) 9.0 (NOV 20) PT 10.3 (NOV 21) INR 1.0 (NOV 21) PTT 27.0 (NOV 21) AST 23 (NOV 21) 25 (NOV 20) ALT 31 (NOV 21) 33 (NOV 20) ALK P 96 (NOV 21) 90 (NOV 20) T Bili 0.3 (NOV 21) 0.2 (NOV 20) PTN 7.0 (NOV 21) 7.1 (NOV 20) ALB 3.7 (NOV 21) 3.5 (NOV 20) Troponin <0.015 (NOV 20) <0.015 (NOV 20) . Impression and Plan CAd with chest pain-pleuritic -atypical for angina -trop neg -ekg no changes -cath 12/2017 rca 50 and septal small 99% -add plavix, coreg, add ranexa 500 bid, cotinue statin therapy. no asa on xarelto dchome cvstable she should continue op testing for gastroparesis that have been ordered with dr ochoa. she can use tylenol Electronically signed by [facility] [place], [facility] Conversion Molten Iron Pourer Cerner at 12/10/2022 6:38 PM CDT documented in this encounter Plan of Treatment Not on file documented as of this encounter Visit Diagnoses Not on filedocumented in this encounter Care Teams Recreation Instructor Relationship Specialty Start Date End Date Igor Meyers MD [address] [place] [address] PCP - General Family Medicine 11/23/22 08/22/23 Provider, Not In System, AUTOMOTIVE WARRANTY ADMINISTRATOR [place] PCP - General 08/23/23 08/27/24 [facility], [facility]Doc [facility] [place] [address] PCP - General 08/28/24 11/06/24 [facility], [facility] [place] [address] PCP - General 11/07/24 02/22/25 [facility], Provider Not In The System, [place] [address] PCP - General 02/23/25 06/26/25 [facility], [facility] [place] [address] PCP - General 06/27/25 documented as of this encounter
--- OUTSIDE RECORDS SUMMARY | 2025-08-12 20:12 | XMS_ITS | Encounter Summary ---
Author Organization [employer] ([place], [place], [place], [place], [place]) Address [address] [place] [address] Care Team Providers Care Stranding Supervisor Name Role Phone Igor Meyers MD Primary Care Provider [phone] Provider, Not In System BRANCH CUSTOMER SERVICE REPRESENTATIVE Primary Care Provid er Unavailable [facility], [facility] Primary Care Provider [facility], [facility] Primary Care Provider [facility], Provider Not In The System Primary Care Provider Unavailable [facility], [facility] Primary Care Provider Encounter Details Date Type Department Care Team (Late st Contact Info) Description 04/24/2020 Transcribed Document [facility] [place] [facility] [place] [address] ProviderRufino MD [address] [place] [address] Social History Tobacco Use Types Packs/Day Years Used Date Smoking Tobacco: Never Assessed Comments Unknown Sex and Gender Information Value Date Recorded Sex Assigned at Not on file Legal Sex Female 1:33 PM CDT Gender Identity Not on file Sexual Orientation Not on file documented as of this encounter Miscellaneous Notes * Cerner Conversion Note - Rufino ProviderMD - 04/24/2020 2:39 AM CDT [address] [address] ROBERTO RANDLE :1960 Visit Time:04/24/2020 Your Visit Summary Your Care Team Primary Provider: AJ VILLAR Secondary Provider: Your Diagnosis Chest pain Chronic CHF Nausea Nausea and vomiting Medical Information You may obtain a copy [...] Appointments Follow Up with Follow up with specialist When Within 2 to 3 days Comments follow up wsith your primary and cardiology for medication side effects andcontinued care with established disease Follow Up with NO PRIM DR PERDOMO When Within 2 to 3 days Allergies sulfADIAZINE (C/O: a swelling, itching) sulfonamides (Rash, Itching) ibuprofen Immunizations This Visit No Immunizations Found Medications What How Much When Instructions Next Dose ondansetron (Zofran ODT 4 mg oral tablet, disintegrating) 1 Tablet(s) Oral Three Times A Day Duration: 5 Day(s) [facility]up at [facility] amLODIPine 5 Milligram(s) Oral Every Day [...] needed for as needed for chest pain potassium chloride (potassium chloride 20 mEq oral [...] 1 Tablet(s) Oral At Bedtime Pharmacy Information [facility]: [address] [place] [address] [phone] The home medications listed are only as [...] This Visit (last charted value for your 04/24/2020 visit) Hematology 04/24/2020 0:42 AM WBC: 11.5 K/uL -- Normal range between ( 3.9 and 10.0 ) RBC: 4.42 Million/uL -- Normal range between ( 3.93 and 5.22 ) Hct: 39.1 % -- Normal range between ( 34.1 and 44.9 ) Hgb: 12.8 Gram/dL -- Normal range between ( 11.2 and 15.7 ) Platelet Count: 251 K/uL -- Normal range between ( 163 and 369 ) MCH: 29.0 pg -- Normal range between ( 25.6 and 32.2 ) MCHC: 32.7 Gram/dL -- Normal range between ( 32.3 and 36.5 ) MCV: 88.5 fL -- Normal range between ( 79.0 and 94.8 ) Slide Review: No Eos %: 1.6 % -- Normal range between ( 1.0 and 7.0 ) Preston #: 0.75 K/uL -- Normal range between ( 0.24 and 0.82 ) Eos #: 0.18 K/uL -- Normal range between ( 0.04 and 0.54 ) Preston %: 6.5 % -- Normal range between ( 4.7 and 12.5 ) Baso %: 0.4 % -- Normal range between ( 0.0 and 1.0 ) Baso #: 0.05 K/uL -- Normal range between ( 0.01 and 0.08 ) RDW: 13.4 % -- Normal range between ( 11.6 and 14.4 ) Neut %: 62.1 % -- Normal range between ( 34.0 and 71.0 ) Neut #: 7.11 K/uL -- Normal range between ( 1.56 and 6.13 ) Lymph %: 27.7 % -- Normal range between ( 19.3 and 53.0 ) Lymph #: 3.18 K/uL -- Normal range between ( 1.18 and 3.74 ) MPV: 10.2 fL -- Normal range between ( 9.4 and 12.4 ) IG#: 0 x10(3)/uL IG%: 2 % -- Normal range between ( 0 and 1 ) General Chemistry 04/24/2020 0:42 AM Creatinine Level: 0.67 mg/dL -- Normal range between ( 0.55 and 1.02 ) Sodium Level: 140 mmol/L -- Normal range between ( 136 and 146 ) Potassium Level: 4.3 mmol/L -- Normal range between ( 3.5 and 5.1 ) Chloride Level: 105 mmol/L -- Normal range between ( 102 and 112 ) Carbon Dioxide Level: 27 mmol/L -- Normal range between ( 21 and 32 ) Anion Gap: 12 -- Normal range between ( 9 and 20 ) Bilirubin Total: 0.3 mg/dL -- Normal range between ( 0.2 and 1.3 ) A/G Ratio: 1.0 -- Normal range between ( 1.1 and 2.5 ) ALT: 31 Units/Liter -- Normal range between ( 12 and 78 ) AST: 18 Units/Liter -- Normal range between ( 5 and 37 ) Globulin: 3.2 Gram/dL -- Normal range between ( 1.5 and 4.5 ) Alk Phos: 65 Units/Liter -- Normal range between ( 27 and 136 ) Bun/Creatinine: 26.9 -- Normal range between ( 8.0 and 20.0 ) Calcium Level: 9.4 mg/dL -- Normal range between ( 8.5 and 10.1 ) eGFR : >60 mL/min/1.73m2 eGFR NonAfrican: >60 mL/min/1.73m2 Glucose Level: 206 mg/dL -- Normal range between ( 74 and 106 ) Blood Urea Nitrogen: 18 mg/dL -- Normal range between ( 7 and 22 ) Protein Total: 6.5 Gram/dL -- Normal range between ( 6.4 and 8.2 ) Albumin Level: 3.3 Gram/dL -- Normal range between ( 3.4 and 5.0 ) Lipase Level: 117 Units/Liter -- Normal range between ( 73 and 393 ) Cardiac Specific Markers 04/24/2020 0:42 AM Troponin I Ultra: <0.015 ng/mL -- Normal range between ( 0.015 and 0.045 ) Education Materials Vomiting, Adult Vomiting occurs when stomach contents are thrown up and out of the mouth. Many people notice nausea before vomiting. Vomiting can make you feel weak and cause you to become dehydrated. Dehydration can make you feel tired and thirsty, cause you to have a dry mouth, and decrease how often you urinate. Older adults and people who have other diseases or a weak body defense system (immune system) are at higher risk for dehydration. It is important to treat vomiting as told by your health care provider. Follow these instructions at home: Eating and drinking Follow these recommendations as told by your health care provider: ??? Take an oral rehydration solution (ORS). This is a drink that is sold at pharmacies and retail stores. ??? Eat bland, bphr-cp-nnjskd foods in small amounts as you are able. These foods include bananas, applesauce, rice, lean meats, toast, and crackers. ??? Drink clear fluids slowly and in small amounts as you are able. Clear fluids include water, ice chips, low-calorie sports drinks, and fruit juice that has water added (diluted fruit juice). ??? Avoid drinking fluids that contain a lot of sugar or caffeine, such as energy drinks, sports drinks, and soda. ??? Avoid alcohol. ??? Avoid spicy or fatty foods. General instructions ??? Wash your hands often using soap and water. If soap and water are not available, use hand railroad operating engineer. Make sure that everyone in your household washes their hands frequently. ??? Take mwrx-eyx-blnrwjf and prescription medicines only as told by your health care provider. ??? Rest at home while you recover. ??? Watch your condition for any changes. ??? Keep all follow-up visits as told by your health care provider. This is important. Contact a health care provider if: ??? Your vomiting gets worse. ??? You have new symptoms. ??? You have a fever. ??? You cannot drink fluids without vomiting. ??? You feel light-headed or dizzy. ??? You have a headache. ??? You have muscle cramps. ??? You have a rash. ??? You have pain while urinating. Get help right away if: ??? You have pain in your chest, neck, arm, or jaw. ??? You feel extremely weak or you faint. ??? You have persistent vomiting. ??? You have vomit that is bright red or looks like black coffee grounds. ??? You have stools that are bloody or black, or stools that look like tar. ??? You have a severe headache, a stiff neck, or both. ??? You have severe pain, cramping, or bloating in your abdomen. ??? You have trouble breathing or you are breathing very quickly. ??? Your heart is beating very quickly. ??? Your skin feels cold and clammy. ??? You feel confused. ??? You have signs of dehydration, such as: ? Dark urine, very little urine, or no urine. ? Cracked lips. ? Dry mouth. ? Sunken eyes. ? Sleepiness. ? Weakness. These symptoms may represent a serious problem that is an emergency. Do not wait to see if the symptoms will go away. Get medical help right away. Call your local emergency services (911 in the [place] Do not drive yourself to the hospital. Summary ??? Vomiting occurs when stomach contents are thrown up and out of the mouth. Vomiting can cause you to become dehydrated. Older adults and people who have other diseases or a weak immune system are at higher risk for dehydration. ??? It is important to treat vomiting as told by your health care provider. Follow your health care provider's instructions about eating and drinking. ??? Wash your hands often using soap and water. If soap and water are not available, use hand railroad operating engineer. Make sure that everyone in your household washes their hands frequently. ??? Watch your condition for any changes and for signs of dehydration. ??? Keep all follow-up visits as told by your health care provider. This is important. This information is not intended to replace advice given to you by your health care provider. Make sure you discuss any questions you have with your health care provider. Document Released: 09/08/2016 Document Revised: 01/21/2019 Document Reviewed: 01/21/2019 [employer] Patient Education ?? 2020 [employer] Emergency Awareness and Preventative Care STROKE [...] Assistance with quitting is available by contacting 3-947-[facility]-NOW. This is a free resource providing counseling, [...] was given the opportunity to ask questions. Patient/Product/Industry Consultant Name: Patient/Product/Industry Consultant Signature: Relationship to Patient: Clinician/Hospital Product/Industry Consultant Signature: Please Provide a Telephone Number Where You Can Be Reached: Is it Permissible To Leave a Message? Date: documented in this encounter Plan of Treatment Not on file documented as of this encounter Visit Diagnoses Not on filedocumented in this encounter Care Teams Stranding Supervisor Relationship Specialty Start Date End Date Igor Meyers MD [address] [place] [address] PCP - General Family Medicine 11/23/22 08/22/23 Provider, Not In System, CHRISTIAN SALAZAR PCP - General 08/23/23 08/27/24 [facility], [facility]Doc [place], [place] [id number] PCP - General 08/28/24 11/06/24 [facility], [facility] [place], [place] [id number] PCP - General 11/07/24 02/22/25 [facility], Provider Not In The System, [place] [address] PCP - General 02/23/25 06/26/25 [facility], [facility]Doc [place], [place] [id number] PCP - General 06/27/25 documented as of this encounter
--- OUTSIDE RECORDS SUMMARY | 2025-08-12 20:12 | XMS_ITS | Encounter Summary ---
Author Organization [employer] ([place], [place], [place], [place], [place]) Address [address] [place] [address] Care Team Providers Care Kettle Hand Name Role Phone Igor Meyers MD Primary Care Provider [phone] Provider, Not In System HIDE TANNER Primary Care Provid er Unavailable [facility], [facility] Primary Care Provider [facility] Primary Care Provider [facility], Provider Not In The System Primary Care Provider Unavailable [facility], [facility] Primary Care Provider Encounter Details Date Type Department Care Team (Late st Contact Info) Description 11/20/2018 Transcribed Document [facility] [place] [facility] [place] [address] ProviderRufino MD [address] [place] [address] Social History Tobacco Use Types Packs/Day Years Used Date Smoking Tobacco: Never Assessed Comments Unknown Sex and Gender Information Value Date Recorded Sex Assigned at Not on file Legal Sex Female 1:33 PM CDT Gender Identity Not on file Sexual Orientation Not on file documented as of this encounter Miscellaneous Notes * Cerner Conversion Note - Rufino ProviderMD - 11/20/2018 5:16 PM CDT Pain Assessment Entered On: 11/20/2018 20:14 EDT Performed On: 11/20/2018 20:14 EDT by HYUN APODACA RN Intervention Information: ketorolac Performed by LEE BLAKELY RN on 11/20/2018 17:50:00 EDT ketorolac,30mg IV Push,Right Antecubit Nacho Pain Assessment Pain Assessment : Follow-up assessment [...] the form. Electronically signed by Alphonse [facility] Conversion President Educational Institution Cerner at 12/10/2022 6:39 PM CDT documented in this encounter Plan of Treatment Not on file documented as of this encounter Visit Diagnoses Not on filedocumented in this encounter Care Teams Kettle Hand Relationship Specialty Start Date End Date Igor Meyers MD [address] [place] [address] PCP - General Family Medicine 11/23/22 08/22/23 Provider, Not In System, CHRISTIAN SALAZAR PCP - General 08/23/23 08/27/24 [facility], [facility]-a-Doc [place], [place] [id number] PCP - General 08/28/24 11/06/24 [facility], [facility]-a-Doc [place], [place] [id number] PCP - General 11/07/24 02/22/25 [facility], Provider Not In The System, [place] [address] PCP - General 02/23/25 06/26/25 [facility], [facility]-a-Doc [place], [place] [id number] PCP - General 06/27/25 documented as of this encounter
--- OUTSIDE RECORDS SUMMARY | 2025-08-12 20:12 | XMS_ITS | Encounter Summary ---
Author Organization [employer] ([place], [place], [place], [place], [place]) Address [address] [place] [address] Care Team Providers Care Mule Packer Name Role Phone Igor Meyers MD Primary Care Provider [phone] Provider, Not In System EDITOR TRADE JOURNAL Primary Care Provid er Unavailable [facility], [facility] Primary Care Provider [facility] Primary Care Provider [facility], Provider Not In The System Primary Care Provider Unavailable [facility], [facility] Primary Care Provider Encounter Details Date Type Department Care Team (Late st Contact Info) Description 11/20/2018 Transcribed Document [facility] [place] [address] [place] [address] ProviderRufino MD [address] [place] [address] Social History Tobacco Use Types Packs/Day [...] Rufino ProviderMD - 11/20/2018 11:46 PM CDT Cardiac and Pulmonary Outpatient [facility] Entered On: 11/29/2018 9:30 EDT Performed On: 11/20/2018 23:46 EDT by KENNY WILLARD, lacquerer and Pulmonary Outpatient [place] Criteria Disqualifying for Phase 2 Cardiac Rehab : No qualifying diagnosis KENNY WILLARD RN - 11/29/2018 9:30 EDT documented in this encounter Plan of Treatment Not on file documented as of this encounter Visit Diagnoses Not on filedocumented in this encounter Care Teams Mule Packer Relationship Specialty Start Date End Date Igor Meyers MD [address] [place] [address] PCP - General Family Medicine 11/23/22 08/22/23 Provider, Not In System, CHRISTIAN SALAZAR PCP - General 08/23/23 08/27/24 [facility], [facility] [place] [address] PCP - General 08/28/24 11/06/24 [facility], [facility] [place] [address] PCP - General 11/07/24 02/22/25 [facility], Provider Not In The System, [place] [address] PCP - General 02/23/25 06/26/25 [facility], [facility] [place] [address] PCP - General 06/27/25 documented as of this encounter
--- OUTSIDE RECORDS SUMMARY | 2025-08-12 20:12 | XMS_ITS | Encounter Summary ---
Author Organization [employer] ([place], [place], [place], [place], [place]) Address [address] [place] [address] Care Team Providers Care Home Energy Inspector Name Role Phone Igor Meyers MD Primary Care Provider [phone] Provider, Not In System LOSS PREVENTION AND SAFETY MANAGER Primary Care Provid er Unavailable [facility], [facility] Primary Care Provider [facility] Primary Care Provider [facility], Provider Not In The System Primary Care Provider Unavailable [facility], [facility] Primary Care Provider Encounter Details Date Type Department Care Team (Late st Contact Info) Description 11/20/2018 Transcribed Document [facility] [place] [facility] [place] [address] ProviderRufino MD [address] [place] [address] Social History Tobacco Use Types Packs/Day Years Used Date Smoking Tobacco: Never Assessed Comments Unknown Sex and Gender Information Value Date Recorded Sex Assigned at Not on file Legal Sex Female 1:33 PM CDT Gender Identity Not on file Sexual Orientation Not on file documented as of this encounter Miscellaneous Notes * Cerner Conversion Note - Historical ProviderMD - 11/20/2018 9:40 PM CDT Admission History, Adult Entered On: 11/20/2018 23:57 EDT Performed On: 11/20/2018 21:40 EDT by Francia Mckeon RN Advance Directive Copy Advance Directive Verified/on Chart : Yes Francia Mckeon RN - 11/21/2018 5:18 EDT Patient has Advance Directive *Q : Yes, Advance Directive on file Advance Directive Type : Living will Francia Mckeon RN - 11/20/2018 23:54 EDT Anesthesia/Transfusion History Family History of Anesthesia Reaction : No prior transfusion(s) Transfusion History : Prior anesthesia without reaction Family History of Anesthesia Reaction : None Francia Mckeon RN - 11/20/2018 23:54 EDT Functional Assessment Living Situation : Home Patient Lives With : Alone Current Home Treatments : Blood glucose monitoring, CPAP Francia Mckeon RN - 11/20/2018 23:54 EDT General Info Preferred Name : Almaz Mode of Arrival on Unit : Stretcher Legal Guardian : Unaccompanied Want Family/Rep/Phys Notified of Admit : No Emergency Contact #1 : Travon Giang Emergency Contact #1 Emergency Contact #1 Relationship : Brother Emergency Contact #2 : n/a Emergency Contact #2 Phone Number : n/a Emergency Contact #2 Relationship : n/a Chief Complaint : c/o chest pain x 2 days, pt states hx of this and is scheduled to see dr adler sunday to discuss stents. p/w/d. Primary Language : Peruvian Preferred Communication Mode : Verbal Communication Barrier : None Francia Mckeon RN - 11/20/2018 23:54 EDT Fall Risk Scales ABCs Fall Injury Risk Identification : None HUBBARD Hx Falls Immediate/Within 3 Months : No Hubbard Secondary Diagnosis : No HUBBARD Use of Ambulatory Aid : None HUBBARD IV Therapy or IV Access : Yes Hubbard Gait/Transferring : Normal, bedrest, immobile Hubbard Mental Status : Oriented to own ability Hubbard Fall Risk Score : 20 HUBBARD Fall Scale Risk Level : 0-24 Low Risk [place] Fall Interventions : Adequate lighting, Assistive devices within reach, Bed in low position, Call device within reach, Fall prevention handout/education per facility policy, Frequent orientation to call device, Frequent orientation to surroundings, Hourly comfort/safety rounds, Non-slip footwear, Personal items within reach, Reinforced to call for assistance before getting out of bed, Room free of clutter/spills, Upper side-rails up, Wheels locked, Wires/Cords secured Francia Mckeon RN - 11/20/2018 23:54 EDT Health Histories Smoking Status : Never (less than 100 in lifetime; none in last 30 days) Smokeless Tobacco Status : Never Francia Mckeon RN - 11/20/2018 23:54 EDT Social History (As Of: 11/20/2018 23:57:51 EDT) Tobacco: Smoking Status Never smoker. (Last Updated: 08/12/2014 20:30:11 EST by Sheryl Burnett, RN) Alcohol: Use in Last 12 Months: No. (Last Updated: 08/12/2014 20:30:02 EST by Sheryl Burnett, DENZEL) Substance Abuse: Drug Use Hx: No. Use in Last 12 Months: No. (Last Updated: 08/12/2014 20:30:16 EST by Sheryl Burnett, DENZEL) Home/Environment: Lives with Alone. Home equipment: CPAP/BiPAP, Glucose monitoring. (Last Updated: 08/12/2014 20:30:08 EST by Sheryl Burnett, DENZEL) Height and Weight, Clinical Dosing Height Source : Stated Height Entry Format : Orchard Height, Feet : 4 ft(Converted to: 122 cm, 48 Inch) Height, Inches : 11 Inch(Converted to: 0 ft 11 Inch, 27.94 cm) Clinical Height : 149.86 cm Weight Source : Bed scale Weight Entry Format : Orchard Clinical Dosing Weight : 92.27 kg Weight, Pounds : 203 lb Body Surface Area (BSA) : 1.86 m2 Body Mass Index : 41.1 kg/m2 (>HHI) [place] Body Weight : 43 kg Francia Mckeon RN - 11/20/2018 23:54 EDT Infectious Disease History Infectious Disease History : Chicken pox/Shingles, Herpes, Measles, Mumps Fever/Chills Last 48 Hours : No Travel To Regions with Travel Advisories : No Travel Outside [place] Within Last 30 Days : No Contact With Traveler to Advisory Region : No Tuberculosis Symptoms : None Francia Mckeon RN - 11/20/2018 23:54 EDT Influenza Vaccine Asmt, Adult Previous Vaccines from Immunization Schedule : No qualifying data available. Influenza Immunization, Current Season : Yes Francia Mckeon RN - 11/20/2018 23:54 EDT Pneumococcal Vaccine Previous Vaccines from Immunization Schedule : No qualifying data available. Pneumonia Immunization Received : Yes Francia Mckeon RN - 11/20/2018 23:54 EDT Nutrition History Adaptive Feeding Equipment : Diabetic, Low cholesterol Eating Poorly Due to Decreased Appetite : No Unplanned Weight Loss in Past 3-6 Months : No Malnutrition Screening Tool Total(mal) : 0 Malnutrition Screening Tool Risk Level : Patient not at risk Francia Mckeon RN - 11/20/2018 23:54 EDT Psychosocial History Do You Have a History of the Following? : Anxiety, Depression Currently in Unsafe Situation : No Tried to Harm Yourself in the Past? : No Thoughts of Harming/Killing Yourself : No Francia Mckeon RN - 11/20/2018 23:54 EDT Sleep Apnea Risk Assmt BiPAP/CPAP Ordered for Home Use : Yes Hx of Obstructive Sleep Apnea Diagnosis : Yes BiPAP/CPAP Used at Home : Yes Age over 50 Years Old : Yes Gender Male : No Francia Mckeon RN - 11/20/2018 23:54 EDT Valuables and Belongings Valuables and Belongings : Clothing, Personal items Clothing : Sleepwear Clothing Disposition : With patient Personal Items : Cell phone, Purse Personal Items Disposition : With patient Francia Mckeon RN - 11/20/2018 23:54 EDT documented in this encounter Plan of Treatment Not on file documented as of this encounter Visit Diagnoses Not on filedocumented in this encounter Care Teams Home Energy Inspector Relationship Specialty Start Date End Date Igor Meyers MD [address] [place] [address] PCP - General Family Medicine 11/23/22 08/22/23 Provider, Not In System, CHRISTIAN SALAZAR PCP - General 08/23/23 08/27/24 [facility], [facility] [place] [address] PCP - General 08/28/24 11/06/24 [facility], [facility] Find-a-Doc [place], [place] [id number] PCP - General 11/07/24 02/22/25 [facility], Provider Not In The System, [place] [address] PCP - General 02/23/25 06/26/25 [facility], [facility]Doc [facility] [place] [address] PCP - General 06/27/25 documented as of this encounter
--- OUTSIDE RECORDS SUMMARY | 2025-08-12 20:12 | XMS_ITS | Encounter Summary ---
Author Organization [employer] ([place], [place], [place], [place], [place]) Address [address] [place] [address] Care Team Providers Care Top Collar Maker Name Role Phone Igor Meyers MD Primary Care Provider [phone] Provider, Not In System CREATIVE ENGAGEMENT DIRECTOR Primary Care Provid er Unavailable [facility], [facility]A-Doc Primary Care Provider [facility], [facility] Primary Care Provider [facility], Provider Not In The System Primary Care Provider Unavailable [facility], [facility]Doc Primary Care Provider Encounter Details Date Type Department Care Team (Late st Contact Info) Description 11/21/2018 Transcribed Document [facility] [place] Family Medicine [facility] [place] [address] ProviderRufino MD [address] [place] [address] Social History Tobacco Use Types Packs/Day Years Used Date Smoking Tobacco: Never Assessed Comments Unknown Sex and Gender Information Value Date Recorded Sex Assigned at Not on file Legal Sex Female 1:33 PM CDT Gender Identity Not on file Sexual Orientation Not on file documented as of this encounter Miscellaneous Notes * Cerner Conversion Note - Rufino ProviderMD - 11/21/2018 10:50 AM CDT Discharge Instructions Entered On: 11/21/2018 10:50 EDT Performed On: 11/21/2018 10:50 EDT by Essie Jalloh RN DC Instructions HWD Stroke/TIA Discharge Ins : N/A Heart Failure Discharge Ins : N/A Warfarin Discharge Ins : N/A Diet After Discharge : Heart healthy diet Activity After Discharge : As tolerated Essie Jalloh RN - 11/21/2018 10:50 EDT Electronically signed by [facility], [facility] Conversion Sales Estimator Cerner at 12/10/2022 6:43 PM CDT documented in this encounter Plan of Treatment Not on file documented as of this encounter Visit Diagnoses Not on filedocumented in this encounter Care Teams Top Collar Maker Relationship Specialty Start Date End Date Igor Meyers MD [address] [place] [address] PCP - General Family Medicine 11/23/22 08/22/23 Provider, Not In System, CHRISTIAN SALAZAR PCP - General 08/23/23 08/27/24 [facility], [facility]Doc [facility] [place], [place] [id number] PCP - General 08/28/24 11/06/24 [facility], [facility] [place] [address] PCP - General 11/07/24 02/22/25 [facility], Provider Not In The System, [address] [place] [address] PCP - General 02/23/25 06/26/25 [facility], Find[facility]A-Doc [facility]-a-Doc [place], [place] [id number] PCP - General 06/27/25 documented as of this encounter
--- OUTSIDE RECORDS SUMMARY | 2025-08-12 20:13 | XMS_ITS | Encounter Summary ---
Author Organization [employer] ([place], [place], [place], [place], [place]) Address [address] [place] [address] Care Team Providers Care Underground Drill Operator Name Role Phone Igor Meyers MD Primary Care Provider [phone] Provider, Not In System RADIO REPAIRMAN Primary Care Provid er Unavailable [facility], [facility]-Doc Primary Care Provider [facility], [facility] Primary Care Provider [facility], Provider Not In The System Primary Care Provider Unavailable [facility], [facility]Doc Primary Care Provider Encounter Details Date Type Department Care Team (Late st Contact Info) Description 04/13/[address] [facility] [place] Family Medicine [facility] [place] [address] ProviderRufino MD [address] [place] [address] Social History Tobacco Use Types Packs/Day Years Used Date Smoking Tobacco: Never Assessed Comments Unknown Sex and Gender Information Value Date Recorded Sex Assigned at Not on file Legal Sex Female 1:33 PM CDT Gender Identity Not on file Sexual Orientation Not on file documented as of this encounter Miscellaneous Notes * Cerner Conversion Note - Rufino ProviderMD - 04/13/2020 5:36 PM CDT Stroke/Warfarin Instructions Entered On: 04/13/2020 17:36 EDT Performed On: 04/13/2020 17:36 EDT by Concepción Alejandro RN Stroke/Warfarin Instructions Stroke/TIA Discharge Ins : N/A Warfarin Discharge Ins : N/A Concepción Alejandro RN - 04/13/2020 17:36 EDT documented in this encounter Plan of Treatment Not on file documented as of this encounter Visit Diagnoses Not on filedocumented in this encounter Care Teams Underground Drill Operator Relationship Specialty Start Date End Date Igor Meyers MD [address] [place] [address] PCP - General Family Medicine 11/23/22 08/22/23 Provider, Not In System, CHRISTIAN SALAZAR PCP - General 08/23/23 08/27/24 [facility], [facility]Doc [facility] [place] [address] PCP - General 08/28/24 11/06/24 [facility], Find[facility]A-Doc [facility] [place] [address] PCP - General 11/07/24 02/22/25 [facility], Provider Not In The System, [place] [address] PCP - General 02/23/25 06/26/25 [facility], [facility]Doc [facility] [place] [address] PCP - General 06/27/25 documented as of this encounter
--- OUTSIDE RECORDS SUMMARY | 2025-08-12 20:13 | XMS_ITS | Encounter Summary ---
Author Organization [employer] ([place], [place], [place], [place], [place]) Address [address] [place] [address] Care Team Providers Care Correctional Therapy Teacher Name Role Phone Igor Meyers MD Primary Care Provider [phone] Provider, Not In System GAS CUTTER Primary Care Provid er Unavailable [facility], Find[facility]A-Doc Primary Care Provider [facility], [facility] Primary Care Provider [facility], Provider Not In The System Primary Care Provider Unavailable [facility], [facility]A-Doc Primary Care Provider Encounter Details Date Type Department Care Team (Late st Contact Info) Description 04/13/2020 Transcribed Document [facility] [place] Family Medicine [facility] [place] [address] ProviderRufino MD [address] [place] [address] Social History Tobacco Use Types Packs/Day Years Used Date Smoking Tobacco: Never Assessed Comments Unknown Sex and Gender Information Value Date Recorded Sex Assigned at Not on file Legal Sex Female 1:33 PM CDT Gender Identity Not on file Sexual Orientation Not on file documented as of this encounter Miscellaneous Notes * Cerner Conversion Note - Rufino ProviderMD - 04/13/2020 2:10 AM CDT Admission History, Adult Entered On: 04/13/2020 3:01 EDT Performed On: 04/13/2020 3:00 EDT by Shell Maria RN Advance Directive Patient has Advance Directive *Q : Yes, Advance Directive on file Advance Directive Type : Living will Copy Advance Directive Verified/on Chart : No Shell Maria RN - 04/13/2020 2:56 EDT Anesthesia/Transfusion History Family History of Anesthesia Reaction : No prior transfusion(s) Blood Transfusion Acceptable to Patient : Yes Transfusion History : Prior anesthesia without reaction Family History of Anesthesia Reaction : None Shell Maria RN - 04/13/2020 2:56 EDT Functional Assessment Living Situation : Home HUBBARD Hx Falls Immediate/Within 3 Months : No Current Home Treatments : Blood glucose monitoring, CPAP Shell Maria RN - 04/13/2020 2:56 EDT General Info Preferred Name : Almaz Mode of Arrival on Unit : Stretcher Legal Guardian : top knitter Legal Guardian : No Want Family/Rep/Phys Notified of Admit : No Emergency Contact #1 : Travon Giang Emergency Contact #1 Emergency Contact #1 Relationship : Brother Emergency Contact #2 : NA Emergency Contact #2 Phone Number : ALEJANDRA Emergency Contact #2 Relationship : NA Chief Complaint : pt to ED via EMS from home with chest pain that started two hours ago. Took 2 nitro at home with no relief. EMS gave 324 ASA. pt states pain 10/10 Information Obtained From : Patient Primary Language : Pakistani Preferred Communication Mode : Verbal Communication Barrier : None Data Technician Needed : No Shell Maria RN - 04/13/2020 2:56 EDT Fall Risk Scales ABCs Fall Injury Risk Identification : None HUBBARD Hx Falls Immediate/Within 3 Months : No Hubbard Secondary Diagnosis : No HUBBARD Use of Ambulatory Aid : Bed rest/Nurse assist HUBBARD IV Therapy or IV Access : Yes Hubbard Gait/Transferring : Normal, bedrest, immobile Hubbard Mental Status : Oriented to own ability Hubbard Fall Risk Score : 20 HUBBARD Fall Scale Risk Level : 0-24 Low Risk [place] Fall Interventions : Adequate lighting, Bed in low position, Call device within reach, Hourly comfort/safety rounds, Non-slip footwear, Personal items within reach, Room free of clutter/spills, Upper side-rails up, Wheels locked, Wires/Cords secured Shell Maria RN - 04/13/2020 2:56 EDT Health Histories Smoking Status : Never (less than 100 in lifetime; none in last 30 days) Smokeless Tobacco Status : Never Shell Maria RN - 04/13/2020 2:56 EDT Social History (As Of: 04/13/2020 03:01:53 EDT) Tobacco: Smoking Status Never smoker. (Last [...] 08/12/2014 20:30:08 EST by Sheryl Burnett, RN) Height and Weight, Clinical Dosing Height Source : Stated Height Entry Format : Franklin Height, Feet : 4 ft(Converted to: 122 cm, 48 Inch) Height, Inches : 11 Inch(Converted to: 0 ft 11 Inch, 27.94 cm) Clinical Height : 149.86 cm Weight Source : Standing scale Weight Entry Format : Franklin Clinical Dosing Weight : 87.02 kg Weight, Pounds : 191 lb Weight, Ounces : 7 oz Body Surface Area (BSA) : 1.81 m2 Body Mass Index : 38.7 kg/m2 (HI) Tracy Body Weight : 43 kg Shell Maria RN - 04/13/2020 2:56 EDT Infectious Disease History Has the patient ever been tested for COVID-19? : No, Patient stated Does patient have symptoms of COVID-19? : No COVID19 Screening : No Experiencing Infectious Disease Symptoms : No symptoms Physical contact outside [place] in the last 30 days : No Infectious Disease History : Chicken pox/Shingles, Herpes, Measles, Mumps Tuberculosis Symptoms : None Shell Maria RN - 04/13/2020 2:56 EDT Influenza Vaccine Asmt, Adult Previous Vaccines from Immunization Schedule : No qualifying data available. Influenza Immunization, Current Season : Outside of influenza season Shell Maria RN - 04/13/2020 2:56 EDT Pneumococcal Vaccine Previous Vaccines from Immunization Schedule : No qualifying data available. Pneumonia Immunization Received : Yes Shell Maria RN - 04/13/2020 2:56 EDT Nutrition History Adaptive Feeding Equipment : Diabetic, Low cholesterol Eating Poorly Due to Decreased Appetite : Yes Unplanned Weight Loss in Past 3-6 Months : Yes Unplanned Weight Loss Amount : 14-23 lbs/6.4-10.5 kg Malnutrition Screening Tool Total(mal) : 3 Malnutrition Screening Tool Risk Level : Patient at risk Shell Maria RN - 04/13/2020 2:56 EDT Henry Suicide Severity Rating Scale (C-SSRS) CSSRS Past Month Wish to be : No CSSRS Past Month Suicidal Thoughts : No CSSRS Lifetime Suicide Behavior : No Suicide Severity Rating Score : 0 Suicide Severity Rating : No Additional Care Required at this time Shell Maria RN - 04/13/2020 2:56 EDT Psychosocial History Do You Have a History of the Following? : Anxiety, Depression Currently in Unsafe Situation : No Shell Maria RN - 04/13/2020 2:56 EDT Sleep Apnea Risk Assmt BiPAP/CPAP Ordered for Home Use : Yes Hx of Obstructive Sleep Apnea Diagnosis : Yes BiPAP/CPAP Used at Home : Yes Age over 50 Years Old : Yes Gender Male : No Shell aMria RN - 04/13/2020 2:56 EDT Valuables and Belongings Valuables and Belongings : Clothing, Personal devices, Personal items Clothing : Outerwear Clothing Disposition : Bedside, With patient Personal Device Disposition : Bedside, With patient Personal Devices : Glasses Personal Items : Cell phone, Purse Personal Items Disposition : Bedside, With patient Shell Maria RN - 04/13/2020 2:56 EDT Electronically signed by Storm Cunha Conversion Electronic Plotting System Operator Cerner at 12/10/2022 6:47 PM CDT documented in this encounter Plan of Treatment Not on file documented as of this encounter Visit Diagnoses Not on filedocumented in this encounter Care Teams Correctional Therapy Teacher Relationship Specialty Start Date End Date Igor Meyers MD [address] [place] [address] PCP - General Family Medicine 11/23/22 08/22/23 Provider, Not In System, CHRISTIAN SALAZAR PCP - General 08/23/23 08/27/24 [facility] Find-A-Doc [facility] [place] [address] PCP - General 08/28/24 11/06/24 [facility] Find[facility]Doc [facility] [place] [address] PCP - General 11/07/24 02/22/25 [facility], Provider Not In The System, [place] [address] PCP - General 02/23/25 06/26/25 [facility], Find-A-Doc [facility] Find-a-Doc [place], [place] [address] PCP - General 06/27/25 documented as of this encounter
--- OUTSIDE RECORDS SUMMARY | 2025-08-12 20:13 | XMS_ITS | Encounter Summary ---
Author Organization Healthcare Address [address] [place] [address] Care Team Providers Care Petroleum Refinery Laborer Name Role Phone Arlene Spears Unavailable Timbo Mcdaniel MD Unavailable [phone] Igor Meyers MD Primary Care Provider [phone] Encounter Details Date Type Department Care Team (Late st Contact Info) Description 01/10/2025 Lab Requisition [facility] [address] [place] [address] Will Argueta MD [address] [place] [address] Encounter for general adult medical examination without [...] 11/18/2024 How often do you attend chur ch or jainism services? Never 11/18/2024 Do you belong to any clubs o r organizations such as hindu groups, unions, fraternal or athletic groups, or [...] medical care, and heating? Very hard 11/18/2024 [facility] - Occupational Stress [...] place to sleep or slept in a usp (including now)? No 11/06/2023 Housing Stability Vital Sign Answer Anupam e Recorded In the last 12 months, was t here a time when you were not able to pay the mortgage or rent on time? Yes 01/12/2025 In the past 12 months, how m any times have you moved where you were living? 0 01/12/2025 At any time in the past 12 m [facility], were you homeless or living in a usp (including now)? No 01/12/2025 Safety and Environment [...] drink first t vic in the morning (EYE-MAIL ROOM) to steady your nerves or to get rid of a hangover? 0 11/16/2023 CAGE Questionnaire Score 0 024 Utilities Answer Date Recorded In the past 12 months has th e [employer], gas, oil, or water company threatened to [...] Question Answer Date of Assessment Author Precautions Environmental surveillance 01/13/2025 8:0 0 PM EDT Lucia Samuel RN * Calculated C-SSRS Risk Score (Lifetime/Recent) Answer Date of Assessment Author No Risk Indicated 01/10/2025 7:47 AM EDT Desirae Guevara RN * Question Answer Date of Assessment Author 1. Wish to be (Past 1 Month) No 01/10/2025 7:47 AM EDT Desirae Guevara RN 2. Non-Specific Active Suici christian Thoughts (Past 1 Month) No 01/10/2025 7:47 AM EDT Yessica Guevara RN 6. Suicidal Behavior (Lifetime) No 7:47 AM EDT Desirae Guevara RN documented as of this encounter Mental Status * Question Answer Entry Date Author Poornima Environmental surveillance 01/13/2025 8:0 0 PM EDT Lucia Samuel RN documented in this encounter Plan of Treatment Not on file documented as of this encounter Procedures Procedure Name Priority Date/Time Associated Diagnosis Comments LIANE AURIS SURVEILLANCE BY PCR Routine 01/10/2025 8:00 PM EDT Encounter for general adult medical examination without abnormal findings documented in this encounter Results * Liane auris Surveillance by PCR (01/10/2025 8:00 PM EDT) Liane auris PCR Result Not Detected Not Detected 01/12/2025 6:39 AM EDT [facility] Swab (Axilla and Groin) 01/10/2025 8:00 PM EDT 01/10/2025 8:10 PM EDT Narrative [facility] - 01/12/2025 6:39 AM EDT This PCR assay was developed and its performance characteristics determined by [facility] as appropriate for clinical purposes. This assay has not been cleared or approved by the FDA, but is performed in a CLIA regulated laboratory that is qualified to perform high-complexity testing. Will Jorge MD LAB MICROBIOLOGY - GENERAL ORDERABLES Final Result [facility] [address] [place] [address] documented in this encounter Visit Diagnoses Diagnosis Encounter for general adult medical examination without abnormal findings documented in this encounter Additional Health Concerns Infection Onset Date Last Indicated Resolved Time Meningitis Rule-Out 01/11/2025 01/11/2025 01/12/20 10:13 AM EDT Meningitis Rule-Out 01/13/2025 01/13/2025 01/14/20 5:33 AM EDT Meningitis Rule-Out 01/14/2025 01/14/2025 01/15/20 11:27 AM EDT C. difficile Rule-Out 01/15/2025 01/15/20252024 2:50 PM EDT Meningitis Rule-Out 01/16/2025 01/16/2025 01/17/20 7:29 AM EDT Meningitis Rule-Out 01/18/2025 01/18/2025 01/19/20 7:21 PM EDT Assessment Noted Time A fall risk assessment has been complete d for the patient 12/06/2023 10:57 AM EDT A Body Mass Index follow-up plan has been documented for the patient 09/17/2024 9:34 AM EST documented as of this encounter Care Teams Petroleum Refinery Laborer Relationship Specialty Start Date End Date Igor Meyers MD [address] [place], [place] [id number] PCP - General 07/09/23 Arlene Spears PA [address] [place] [address] Physician Audio Visual Collections Coordinator Neurosurgery 02/14/21 Timbo Mcdaniel MD [address] [phone] Surgeon Neurosurgery 02/18/21 documented as of this encounter
--- OUTSIDE RECORDS SUMMARY | 2025-08-12 20:13 | XMS_ITS | Encounter Summary ---
Author Organization [facility] ([place], [place], [place], [place], [place]) Address [address] [place] [address] Care Team Providers Care Pulmonary Physical Therapist Name Role Phone Igor Meyers MD Primary Care Provider [phone] Provider, Not In System MANUFACTURING PROCESS TECHNICIAN Primary Care Provid er Unavailable [facility], [facility] Primary Care Provider [facility], [facility] Primary Care Provider [facility], Provider Not In The System Primary Care Provider Unavailable [facility], [facility] Primary Care Provider Encounter Details Date Type Department Care Team (Late st Contact Info) Description 11/03/2019 Transcribed Document [facility] Family [place] [address] ProviderRufino MD [address] [place] [address] Social History Tobacco Use Types Packs/Day Years Used Date Smoking Tobacco: Never Assessed Comments Unknown Sex and Gender Information Value Date Recorded Sex Assigned at Not on file Legal Sex Female 1:33 PM CDT Gender Identity Not on file Sexual Orientation Not on file documented as of this encounter Miscellaneous Notes * Cerner Conversion Note - Rufino ProviderMD - 11/03/2019 12:28 AM CDT Patient: ROBERTO RANDLE Age: 59 years Sex: Female : 1960 Associated Diagnoses: Atypical chest pain; Chest pain; Diarrhea Author: MARVIN ORTIZ MD-EMR Basic Information Additional information: Chief Complaint from Nursing Triage Note : Chief Complaint 11/02/2019 22:43 EDT Chief Complaint c/o- left 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 +nausea/Dirrhea x 1 week; no vomiting; had 2 NTG SL head bellhop captain; - no help at all; EKG done in triage @ 2243; +dizziness; (Modified) . History of Present Illness The patient presents with chest pain. The onset was abrupt and 9pm. Location: Left anterior. Radiating pain: left arm. The character of symptoms is heaviness and tightness. The degree at onset was minimal. The degree at maximum was moderate. The degree at present is moderate. The exacerbating factor is moving L arm. The relieving factor is none. Risk factors consist of coronary artery disease. Therapy today Nitroglycerin, x 2 and on xarelto. Associated symptoms: shortness of breath, denies nausea, denies vomiting, denies diaphoresis, denies anxiety and denies palpitations. The patient presents with diarrhea. The onset was 1 weeks ago. The course/duration of symptoms is 4x a day. The character is watery. The degree of symptoms is moderate. The exacerbating factor is none. The relieving factor is none. Risk factors consist of not recent antibiotic use, not infectious exposure, no recent travel, not previous colitis, not contaminated food - water and not Crohn's disease. Therapy today:. Associated symptoms: none. Review of Systems Constitutional symptoms: No fever, no chills. Skin symptoms: No rash, Eye symptoms: Negative except as documented in HPI. ENMT symptoms: Negative except as documented in HPI. Respiratory symptoms: No shortness of breath, Cardiovascular symptoms: Chest pain. Gastrointestinal symptoms: Diarrhea, No rectal bleeding, Genitourinary symptoms: Negative except as documented in HPI. Musculoskeletal symptoms: chronic back pain, peripheral neuropathy, chronic knee and foot pain. Neurologic symptoms: No headache, Psychiatric symptoms: Anxiety. Endocrine symptoms: Negative except as documented in HPI. Additional review of systems information: All other systems reviewed and otherwise negative. Health Status Allergies: Allergic Reactions (Selected) Severe SulfADIAZINE- Itching. Moderate Sulfonamides- Itching and rash.. Medications: (Selected) Prescriptions Prescribed Lidoderm 5% topical film: 1 Patch, TransDermal, Daily, for 10 Day(s), 10 Patch, 0 Refill(s) Ranexa 500 mg oral tablet, [...] 62.5 mcg/inh inhalation powder: 62.5 mcg, Inhalation, [id number] Nitrostat 0.4 mg sublingual tablet: 1 Tab, [...] constipation fluticasone 50 mcg/inh nasal spray: 1 [place], Nasal, Daily, in each nostril, 16 Gram, [...] documented in chart. Cardiovascular: coronary artery disease, hypertension. Respiratory: pulmonary embolism, ON XARELTO. See Problem list below. I have reviewed it.. last cath 2018 single vessel dz small septal branch. 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 hysterectomy. tubal. Cholecystectomy; (90112). Multiple brain surgeries. Heart surgery as child., [...] Physical Examination Vital Signs Vital Signs/Vital Measures 11/02/2019 22:43 EDT Blood Pressure Location Arm, right upper Blood Pressure Source Non-Invasive BP Device Systolic Blood Pressure 128 mmHg Diastolic Blood Pressure 77 mmHg Temperature Source Oral Temperature Mode Fahrenheit Temperature, Fahrenheit 98.2 Deg F Clinical Temperature, C 36.8 Deg C Peripheral Pulse Rate 74 bpm Respiratory Rate 20 Breaths/Min Oxygen Saturation 97 % Oxygen Therapy Mode Room air . Measurements 11/02/2019 22:43 EDT Height Source Measured Height Entry Format [place] Height/Length, RUSSIAN (ft) 4 ft Height/Length RUSSIAN 11 Inch CLINICALHEIGHT 149.86 cm [place] Body Weight 42.87 kg Weight Source, ED Standing scale Weight Entry Format [place] Weight Nigerien lb 200 lb CLINICALWEIGHT 90.91 kg Body Surface Area (BSA) 1.85 m2 Body Mass Index 40.5 kg/m2 >HHI . Oxygen Saturation 11/02/2019 22:43 EDT Oxygen Saturation 97 % . General: Alert, no acute distress. Skin: Warm, dry, no rash. Head: Normocephalic, atraumatic. Neck: Supple. Eye: Pupils are equal, round and reactive to light, extraocular movements are intact, normal conjunctiva. Ears, nose, mouth and throat: Oral mucosa moist. Cardiovascular: Regular rate and rhythm, No murmur, Normal peripheral perfusion, No edema. Respiratory: Lungs are clear to auscultation, respirations are non-labored, breath sounds are equal, Symmetrical chest wall expansion. Chest wall: L ant chest wall sl tender, pain reproduced with passive ROM L arm. Back: Nontender, Normal range of motion. Musculoskeletal: Normal ROM, normal strength, no tenderness, no swelling, no deformity, pulses = x 4. Gastrointestinal: Soft, Nontender. Neurological: Alert and oriented to person, place, time, and situation, No focal neurological deficit observed. Psychiatric: Cooperative. Medical Decision Making Differential Diagnosis: Unstable angina, angina, anxiety, atypical chest pain, chest wall pain. Rationale: patient has had NUMEROUS CTA's I do not believe one is indicated at this time. Electrocardiogram: Rate 81, normal sinus rhythm, no ectopy, normal NC & QRS intervals, EP Interp, NS ST abn no sig change from last EKG on file 10/02/19. Electrocardiogram: Rate 73, normal sinus rhythm, EP Interp, no sig change. Results review: Lab results : Lab Results 11/03/2019 2:24 EDT Glucose POC2 98 mg/dL 11/03/2019 2:03 EDT Troponin I Ultra <0.015 ng/mL 11/02/2019 23:31 EDT Sodium Level 138 mmol/L Potassium Level 4.0 mmol/L Chloride Level 106 mmol/L Carbon Dioxide Level 24 mmol/L Anion Gap 12 Glucose Level 176 mg/dL HI Blood Urea Nitrogen 14 mg/dL CREATININE 0.55 mg/dL eGFR >60 mL/min/1.73m2 eGFR NonAfrican >60 mL/min/1.73m2 Bun/Creatinine 25.5 HI Calcium Level 9.4 mg/dL Protein Total 7.3 Gram/dL Albumin Level 3.6 Gram/dL Globulin 3.7 Gram/dL A/G Ratio 1.0 LOW Bilirubin Total 0.2 mg/dL Alk Phos 75 Units/Liter AST 12 Units/Liter ALT 24 Units/Liter Troponin I Ultra <0.015 ng/mL WBC 9.6 K/uL RBC 4.78 Million/uL Hgb 13.9 Gram/dL Hct 41.4 % MCV 86.6 fL MCH 29.1 pg MCHC 33.6 Gram/dL Platelet Count 257 K/uL MPV 10.1 fL RDW 13.5 % Neut % 56.0 % Neut # 5.36 K/uL Lymph % 35.7 % Lymph # 3.42 K/uL Sanders % 5.3 % Sanders # 0.51 K/uL Eos % 2.0 % Eos # 0.19 K/uL Baso % 0.6 % Baso # 0.06 K/uL Slide Review No IG# 0 x10(3)/uL IG% 0 % . Chest X-Ray: No acute disease process, interpretation by Emergency Physician, old abnormalities noted. Reexamination/ Reevaluation Patient has NOT had diarrhea here she wants to go home Impression and Plan Diagnosis Atypical chest pain - Discharge, Emergency medicine, Medical Complaint of Chest pain - Reason For Visit, Emergency medicine, Medical Complaint of Diarrhea - Reason For Visit, Emergency medicine, Medical Plan Condition: Unchanged. Disposition: Discharged Admit/Transfer/Discharge: Discharge (Order): Start: 11/03/2019 3:03 EDT, Discharge to: Home. Patient was given the following educational materials: Chest Wall Pain. Follow up with: MARCELO PERDOMO Within 2 to 3 days; JED ROSALES Within [address] Rosales's office in the morning for a follow up appointment in 1-2 days Return any problems Take imodium over the counter if your diarrhea continues. Counseled: Patient, Regarding diagnosis, Regarding diagnostic results, Regarding treatment plan, Regarding prescription, Patient indicated understanding of instructions. documented in this encounter Plan of Treatment Not on file documented as of this encounter Visit Diagnoses Not on filedocumented in this encounter Care Teams Pulmonary Physical Therapist Relationship Specialty Start Date End Date Igor Meyers MD [address] [place] [address] PCP - General Family Medicine 11/23/22 08/22/23 Provider, Not In System, CHRISTIAN SALAZAR PCP - General 08/23/23 08/27/24 [facility], [facility] [place] [address] PCP - General 08/28/24 11/06/24 [facility], [facility] [place] [address] PCP - General 11/07/24 02/22/25 [facility], Provider Not In The System, [place] [address] PCP - General 02/23/25 06/26/25 [facility], [facility] [place] [address] PCP - General 06/27/25 documented as of this encounter
--- OUTSIDE RECORDS SUMMARY | 2025-08-12 20:13 | XMS_ITS | Encounter Summary ---
Author Organization Healthcare Address [address] [place] [address] Care Team Providers Care Regional Sales Associate Name Role Phone Leobardo Jonse Primary Care Provider [phone] Arlene Spears Unavailable [phone] Timbo Mcdaniel MD Unavailable [phone] Igor Meyers MD Primary Care Provider [phone] Encounter Details Date Type Department Care Team (Late st Contact Info) Description 06/06/2021 Lab Requisition [facility] [address] [place] [address] Will Argueta MD [address] [facility] 7[address] [facility] [address] [place] [address] Encounter for general adult medical examination without abnormal findings Social History Tobacco Use Types Packs/Day Years Used Date Smoking Tobacco: Never Smokeless Tobacco: Never Alcohol Use Standard Drinks/Week Comments No 0 (1 standard drink = 0.6 oz pur e alcohol) Comments No Sex and Gender Information Value Date Recorded Sex Assigned at Female 03/23/2021 5:37 AM EDT Legal Sex Female 8:56 PM EDT Gender Identity Female 03/23/2021 5:37 AM EDT Sexual Orientation Straight 04/29/2021 1: 13 PM EDT COVID-19 Exposure Response Date Recorded In the last month, have you been in contact with someone who was confirmed or suspected to have Coronavirus / COVID-19? No / Unsure 06/01/2021 6:14 AM EDT documented as of this encounter Functional Status documented as of this encounter Mental Status * Question Answer Entry Date Author Precautions Fall risk 06/09/2021 11:00 PM EDT Rashi Hinton documented in this encounter Plan of Treatment Not on file documented as of this encounter Procedures Procedure Name Priority Date/Time Associated Diagnosis Comments MULTI DRUG RESISTANCE TEST Routine 06/06/2021 10:10 AM EDT Encounter for general adult medical examination without abnormal findings documented in this encounter Results * Multi Drug Resistance Test (06/06/2021 10:10 AM EDT) Culture No growth at day 2 06/08/2021 11:22 AM EDT [facility] Swab (Nares and Karishma Rectal) 06/06/2021 10:10 AM EDT 06/06/2021 12:39 PM EDT us Will Jorge MD LAB MICROBIOLOGY - GENERAL ORDERABLES Final Result [facility] [address] [place] [id number] documented in this encounter Visit Diagnoses Diagnosis Encounter for general adult medical examination without abnormal findings documented in this encounter Additional Health Concerns Infection Onset Date Last Indicated Resolved Time Meningitis Rule-Out 07/16/2021 07/16/2021 07/16/20 21 6:13 AM EST Meningitis Rule-Out 07/16/2021 07/16/2021 07/16/20 21 8:47 AM EST COVID-19 Rule-Out 04/14/2022 04/14/2022 04/14/2022 9:09 PM EDT Meningitis Rule-Out 10/31/2022 10/31/2022 11/01/19 23 12:25 PM EST Meningitis Rule-Out 06/15/2023 06/15/2023 06/15/20 23 4:47 PM EDT Meningitis Rule-Out 11/05/2023 11/05/2023 11/05/19 24 7:31 PM EDT Meningitis Rule-Out 11/08/2023 11/08/2023 11/08/19 24 8:03 PM EDT Meningitis Rule-Out 11/13/2023 11/13/2023 11/13/19 24 1:35 PM EDT COVID-19 Rule-Out 09/15/2024 09/15/2024 09/15/2024 8:49 PM EST Meningitis Rule-Out 01/11/2025 01/11/2025 01/12/20 10:13 AM EDT Meningitis Rule-Out 01/13/2025 01/13/2025 01/14/20 5:33 AM EDT Meningitis Rule-Out 01/14/2025 01/14/2025 01/15/20 11:27 AM EDT C. difficile Rule-Out 01/15/2025 01/15/20252024 2:50 PM EDT Meningitis Rule-Out 01/16/2025 01/16/2025 01/17/20 7:29 AM EDT Meningitis Rule-Out 01/18/2025 01/18/2025 01/19/20 7:21 PM EDT documented as of this encounter Care Teams Regional Sales Associate Relationship Specialty Start Date End Date Robert Leobardo J [address] [address] PCP - General 01/07/21 07/08/23 Igor Meyers MD [address] [place] [address] PCP - General 07/09/23 Arlene Spears PA [address] [facility] [address] [place] [address] Physician Refractory Specialist Neurosurgery 02/14/21 Timbo Mcdaniel MD [address] [place] [id number] Surgeon Neurosurgery 02/18/21 documented as of this encounter
--- OUTSIDE RECORDS SUMMARY | 2025-08-12 20:13 | XMS_ITS | Encounter Summary ---
Author Organization Healthcare Address [address] [place] [address] Care Team Providers Care Direct Mail Clerk Name Role Phone Arlene Spears Unavailable [phone] Timbo Mcdaniel MD Unavailable [phone] Igor Meyers MD Primary Care Provider [phone] Encounter Details Date Type Department Care Team (Late st Contact Info) Description 01/12/2025 Lab Requisition [facility] [address] [place] [address] Gustabo Devries MD [address] [facility] [address] [place] [phone] Encounter for general adult medical examination without [...] often do you attend chur ch or pentecostal services? Never 11/18/2024 Do you belong to any clubs o r organizations such as shinto groups, unions, fraternal or athletic groups, or [...] medical care, and heating? 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 0 11/16/2023 CAGE Questionnaire Score 0 024 Utilities Answer Date Recorded In the past 12 months has th e electric, gas, oil, or water company threatened [...] * Question Answer Entry Date Author Precautions Environmental surveillance 01/15/2025 8:0 0 PM EDT Andria Curtis RN documented in this encounter Plan of Treatment Not on file documented as of this encounter Procedures Procedure Name Priority Date/Time Associated Diagnosis Comments MULTI DRUG RESISTANCE TEST Routine 01/12/2025 9:00 AM EDT Encounter for general adult medical examination without abnormal findings documented in this encounter Results * Multi Drug Resistance Test (01/12/2025 9:00 AM EDT) Culture No growth at day 1 01/13/2025 10:14 AM EDT [facility] Swab (Nares and Karishma Rectal) 01/12/2025 9:00 AM EDT 01/12/2025 9:28 AM EDT Narrative [facility] - 01/13/2025 10:14 AM EDT This test was developed and its performance characteristics determined by the [facility]. Although the media is FDA-approved, it is not FDA-approved for all specimen types submitted. The FDA has determined that such clearance or approval is not necessary. This test is used for surveillance purposes. It should not be regarded as investigational or for research. The [facility] is certified under the Clinical Laboratory Improvement Amendments of 1988 (CLIA-88) as qualified to perform high complexity clinical laboratory testing. Gustabo Devries MD LAB MICROBIOLOGY - GEN ERAL ORDERABLES Final Result [facility] [address] [place] [address] documented in this encounter Visit Diagnoses Diagnosis Encounter for general adult medical examination without abnormal findings documented in this encounter Additional Health Concerns Infection Onset Date Last Indicated Resolved Time Meningitis Rule-Out 01/13/2025 01/13/2025 01/14/20 5:33 AM [...] documented as of this encounter Care Teams Direct Mail Clerk Relationship Specialty Start Date End Date Igor Meyers MD [address] [place] [address] PCP - General 07/09/23 Arlene Spears PA [address] [facility] [place] [address] Physician Transport Rn Neurosurgery 02/14/21 Timbo Mcdaniel MD [address] [place] [phone] Surgeon Neurosurgery 02/18/21 documented as of this encounter
--- OUTSIDE RECORDS SUMMARY | 2025-08-12 20:13 | XMS_ITS | Clinical Summary ---
Author Organization [facility] Address [address] [place] [address] Care Team Providers Care Clerical Production Worker Name Role Phone Hector Chau MD Primary Care Provider Allergies Active Allergy Reactions Criticality Noted Date Comments Sulfa Antibiotics Itching 11/23/2016 Medications metFORMIN (GLUCOPHAGE) 1000 MG tablet Take 1,000 mg by mouth 2 (Two) Times a Day With Meals. Active gabapentin (NEURONTIN) 600 MG tablet Take 600 mg by mouth 3 (Three) Times a Day. Active traZODone (DESYREL) 100 MG tablet Take 100 mg by mouth Every Night. Active ACYCLOVIR PO Take 400 mg by mouth Daily. Active carvedilol (COREG) 3.125 MG tablet Take 3.125 mg by mouth 2 (Two) Times a Day With Meals. Active pravastatin (PRAVACHOL) 20 MG tablet Take 20 mg by mouth Daily. Active topiramate (TOPAMAX) 100 MG tablet Take 100 mg by mouth Every Night. Active rivaroxaban (XARELTO) 20 MG tablet Take 20 mg by mouth Daily. Active RANITIDINE HCL PO Take 20 mg by mouth 2 (Two) Times a Day. Active Potassium 99 MG tablet Take 1 tablet by mouth Daily. Active GLYBURIDE PO Take 6 mg by mouth Daily. Active amLODIPine (NORVASC) 5 MG tablet Take 5 mg by mouth Daily. Active amitriptyline (ELAVIL) 50 MG tablet Take 50 mg by mouth Daily. Active omeprazole (priLOSEC) 40 MG capsule Take 40 mg by mouth Daily. Active furosemide (LASIX) 20 MG tablet Take 20 mg by mouth 2 (Two) Times a Day. Active aspirin 81 MG EC tablet Take 81 mg by mouth Daily. Active diphenhydrAMINE (BENADRYL ALLERGY) 25 MG tablet Take 25 mg by mouth Every 12 (Twelve) Hours As Needed for Itching. Active furosemide (LASIX) 40 MG tablet take 1 tablet by mouth daily 30 tablet 3 11/11/2022 Active Family History Medical History Relation Name Comments Heart disease Mother Heart disease Sister Relation Name Status Comments Mother Sister Social History Tobacco Use Types Packs/Day Years Used Date Smoking Tobacco: Never Smokeless Tobacco: Never Alcohol Use Standard Drinks/Week Comments No 0 (1 standard drink = 0.6 oz pur e alcohol) Abuse Screen Answer Date Recorded Unsafe at Home or Work/School Not on file Feels Threatened by Someone? Not on file 04/2023 Does Anyone Keep You from Co ntacting Others or Doint Things Outside the Home? Not on file 06/04/2023 Physical Sign of Abuse Present Not on file 1 Housing Stability Answer Date Recorded Current Living Arrangements Not on file 04/2023 Potentially Unsafe Housing Conditions Not on nasrin e 06/04/2023 Family and Community Support Answer Anupam e Recorded Help with Day-to-Day Activities Not on file 06/04/2023 Lonely or Isolated Not on file 06/04/2023 Employment Answer Date Recorded Do you want help finding or keeping work or a michelle b? Not on file 06/04/2023 Disabilities Answer Date Recorded Concentrating, Remembering, or Making Decisions Difficulty Not on file 06/04/2023 Doing Errands Independently Difficulty Not on fi le 06/04/2023 Education Answer Date Recorded Help with school or training? Not on file Preferred Language Not on file 06/04/2023 Comments Unknown Sex and Gender Information Value Date Recorded Sex Assigned at Not on file Legal Sex Female 10:56 AM EDT Gender Identity Not on file Sexual Orientation Not on file Last Filed Vital Signs Vital Sign Reading Time Taken Comments Blood Pressure 125/73 11/23/2016 1:30 PM EDT Post Ambulation Blood Pressure. Pulse 79 11/23/2016 1:30 PM EDT Temperature 36.6 C (97.9 F) 11/23/2016 8:15 AM EDT Respiratory Rate 16 11/23/2016 11:1 5 AM EDT Oxygen Saturation 94% 11/23/2016 1:3 0 PM EDT Inhaled Oxygen Concentration - - Weight 92.9 kg (204 lb 12.9 oz) 11/23/2016 8:15 AM EDT Height 149.9 cm (4' 11 ) 11/23/2016 8:1 5 AM EDT Body Mass Index 41.37 11/23/2016 8:15 AM EDT Plan of Treatment Health Maintenance Due Date Last Done Comments Annual Gynecologic Pelvic an d Breast Exam 1960 Pneumococcal Vaccine 50+ (1 of 2 - PCV) 1979 TDAP/TD VACCINES (1 - Tdap) 1979 MAMMOGRAM 2000 COLOGUARD 2005 COLON CANCER SCREENING 5 YEA R SIGMOIDOSCOPY 2005 COLONOSCOPY [address] CANCER SCREENING 2005 CT COLONOGRAPHY 2005 FECAL OCCULT BLOOD TEST 2005 FIT Testing (1 year) 2005 ZOSTER VACCINE (1 of 2) 2010 ANNUAL PHYSICAL 11/23/2016 INFLUENZA VACCINE 03/27/2025 HEPATITIS C SCREENING Completed 09/15/2024 HEMOGLOBIN A1C Discontinued 01/26/2025, 10/26, 09/16/2024, Additional history exists Insurance [employer] Care Teams Clerical Production Worker Relationship Specialty Start Date End Date Hector Chau MD [address] [place] [address] PCP - General 06/29/15
--- OUTSIDE RECORDS SUMMARY | 2025-08-12 20:13 | XMS_ITS | Encounter Summary ---
Author Organization [employer] ([place], [place], [place], [place], [place]) Address [address] [place] [address] Care Team Providers Care Fire Control System Installer Name Role Phone Igor Meyers MD Primary Care Provider [phone] Provider, Not In System TIE WORKER Primary Care Provid er Unavailable [facility] Connection, Find-A-Doc Primary Care Provider [facility], [facility]Doc Primary Care Provider [facility], Provider Not In The System Primary Care Provider Unavailable [facility], Find-A-Doc Primary Care Provider Encounter Details Date Type Department Care Team (Late st Contact Info) Description 04/13/2020 Transcribed Document [facility] [place] [facility] [place] [address] ProviderRufino MD [address] [place] [address] Social History Tobacco Use Types Packs/Day Years Used Date Smoking Tobacco: Never Assessed Comments Unknown Sex and Gender Information Value Date Recorded Sex Assigned at Not on file Legal Sex Female 1:33 PM CDT Gender Identity Not on file Sexual Orientation Not on file documented as of this encounter Miscellaneous Notes * Cerner Conversion Note - Rufino ProviderMD - 04/13/2020 5:00 AM CDT Chart Check - Review Order Profile Entered On: 04/13/2020 5:43 EDT Performed On: 04/13/2020 5:00 EDT by Shell Maria, RN Chart Check Powerplans Initiated/Discontinued as Appropriate : Yes All Active Orders Reviewed : Yes Shell Maria RN - 04/13/2020 5:43 EDT documented in this encounter Plan of Treatment Not on file documented as of this encounter Visit Diagnoses Not on filedocumented in this encounter Care Teams Fire Control System Installer Relationship Specialty Start Date End Date Igor Meyers MD [address] [place] [address] PCP - General Family Medicine 11/23/22 08/22/23 Provider, Not In System, CHRISTIAN SALAZAR PCP - General 08/23/23 08/27/24 [facility] Connection, [facility]A-Doc [facility] [place] [address] PCP - General 08/28/24 11/06/24 [facility], Find[facility]Doc [facility] [place] [address] PCP - General 11/07/24 02/22/25 [facility], Provider Not In The System, [place] [address] PCP - General 02/23/25 06/26/25 [facility], Find[facility]Doc [facility] [place] [address] PCP - General 06/27/25 documented as of this encounter
--- OUTSIDE RECORDS SUMMARY | 2025-08-12 20:13 | XMS_ITS | Encounter Summary ---
Author Organization [employer] ([place], [place], [place], [place], [place]) Address [address] [place] [address] Care Team Providers Care Data Architect Manager Name Role Phone Igor Meyers MD Primary Care Provider [phone] Provider, Not In System MAIL CLERKS SUPERVISOR Primary Care Provid er Unavailable [facility] Connection, Find-A-Doc Primary Care Provider [facility], [facility]Doc Primary Care Provider [facility], Provider Not In The System Primary Care Provider Unavailable [facility], Find-A-Doc Primary Care Provider Encounter Details Date Type Department Care Team (Late st Contact Info) Description 04/13/2020 Transcribed Document [facility] [place] Family Medicine [facility] [place] [address] ProviderRufino MD [address] [place] [address] Social History Tobacco Use Types Packs/Day Years Used Date Smoking Tobacco: Never Assessed Comments Unknown Sex and Gender Information Value Date Recorded Sex Assigned at Not on file Legal Sex Female 1:33 PM CDT Gender Identity Not on file Sexual Orientation Not on file documented as of this encounter Miscellaneous Notes * Cerner Conversion Note - Rufino ProviderMD - 04/13/2020 1:53 AM CDT Patient: ROBERTO RANDLE Age: 59 years Sex: Female : 1960 Associated Diagnoses: Chest pain Author: FRANTZ ALVARADO MD-EMR Basic Information Time seen: Date & time 04/12/2020 22:58:00. History source: Patient. Arrival mode: Private vehicle, walking. History limitation: None. Additional information: Chief Complaint from Nursing Triage Note : Chief Complaint 04/12/2020 22:27 EDT Chief Complaint pt to ED via EMS from home with chest pain that started two hours ago. Took 2 nitro at home with no relief. EMS gave 324 ASA. pt states pain 10/10 . History of Present Illness The patient presents with chest pain. The onset was 2 hours ago. The course/duration of symptoms is constant and fluctuating in intensity. Location: Anterior chest. Radiating pain: left arm. The character of symptoms is dull. The degree at onset was minimal. The degree at maximum was severe. The degree at present is severe. The exacerbating factor is none. The relieving factor is none. Risk factors consist of coronary artery disease, hypertension and diabetes mellitus. Prior episodes: angina. Therapy today. Associated symptoms: denies shortness of breath, denies nausea, denies vomiting, denies diaphoresis, denies anxiety and denies palpitations. She complains of having pain in her anterior chest described as dull, sometimes sharp, for last 2 hours, pain radiates to her left arm, complains of nausea, vomited twice, denies any sweating, no shortness of breath, patient had a history of coronary artery disease, hypertension, hyperlipidemia, diabetes, patient states she scheduled heart cath in few days. Review of Systems Constitutional symptoms: No fever, no chills, no decreased activity. Skin symptoms: No rash, no pruritus, no silver, no petechiae, no lesion. Eye symptoms: No recent vision problems, no pain, no discharge. ENMT symptoms: No ear pain, no sore throat, no nasal congestion. Respiratory symptoms: No shortness of breath, no cough. Cardiovascular symptoms: No syncope, no diaphoresis, no peripheral edema. Gastrointestinal symptoms: Nausea, vomiting, no abdominal pain, no diarrhea. Genitourinary symptoms: No dysuria, no hematuria. Musculoskeletal symptoms: No back pain, no Muscle [...] Abx recently. No change in meds recently Denies IVDA No history of trauma or injury -NO TRAVEL OR EXPOSURE TO POTENTIAL OR DIAGNOSED COVID-19 VIRUS . Health Status Allergies: Allergic Reactions (Selected) Severe SulfADIAZINE- C/o: a swelling and itching. Moderate Sulfonamides- Itching and rash. Severity Not Documented Ibuprofen- No reactions were documented.. Medications: (Selected) Inpatient Medications Ordered Normal Saline Flush: 10 mL, IV Push, Q12H Documented Medications Documented Januvia: 100 mg, Oral, Daily, 0 Refill(s) Nitrostat 0.4 mg sublingual tablet: 1 Tab, SubLINgual, Q5Min, PRN: as needed for chest pain, 100 Tab, 0 Refill(s) Ranexa 500 mg oral tablet, extended release: 1 Tab, Oral, BID, 0 Refill(s) Vitamin D3: 2,000 Int Units, Oral, Daily, 0 Refill(s) Xarelto 10 mg oral tablet: 1 Tab, Oral, Daily, 0 Refill(s) amLODIPine: 5 mg, Oral, Daily, 0 Refill(s) atorvastatin 40 mg oral tablet: 1 Tab, Oral, Daily, 0 Refill(s) glyBURIDE: 5 mg, Oral, Daily, 0 Refill(s) metformin: 1,000 mg, Oral, BID, 0 Refill(s) multivitamin: Daily, 0 Refill(s) traZODone 100 mg oral tablet: 1 Tab, Oral, At Bedtime, 0 Refill(s). Immunizations: Per nurse's notes. Past Medical/ Family/ Social History Medical history Reviewed as documented in chart. Cardiovascular: coronary artery disease, hypertension, myocardial infarction, congestive heart failure, hyperlipidemia. Respiratory: chronic obstructive pulmonary disease, sleep apnea. Neurological: Patient has a history of REAL PROPERTY EVALUATOR shunt. Surgical history: REAL PROPERTY EVALUATOR Shunt. hysterectomy. tubal. Cholecystectomy; (57178). Multiple brain surgeries. Heart surgery as child., [...] Physical Examination Vital Signs Vital Signs/Vital Measures 04/12/2020 22:27 EDT Systolic Blood Pressure 127 mmHg Diastolic Blood Pressure 77 mmHg Temperature Source Oral Temperature Mode Fahrenheit Temperature, Fahrenheit 97.6 Deg F Clinical Temperature, C 36.4 Deg C Peripheral Pulse Rate 70 bpm Respiratory Rate 18 Breaths/Min Oxygen Saturation 93 % LOW Oxygen Therapy Mode Room air . Measurements 04/12/2020 22:27 EDT Height Source Stated Height Entry Format [place] Height/Length, DUTCH (ft) 4 ft Height/Length DUTCH 11 Inch CLINICALHEIGHT 149.86 cm [place] Body Weight 42.87 kg Weight Source, ED Critical estimated dosing weight Weight Entry Format [place] Weight [place] lb 190 lb CLINICALWEIGHT 86.36 kg Body Surface Area (BSA) 1.81 m2 Body Mass Index 38.5 kg/m2 HI . Oxygen Saturation 04/12/2020 22:27 EDT Oxygen Saturation 93 % LOW . General: Alert, no acute distress. Skin: Warm, dry, pink, intact, no pallor, no rash, not cyanotic, not cool, not pale. Head: Normocephalic, atraumatic. Neck: Supple, no JVD. Eye: Normal conjunctiva. Ears, nose, mouth and throat: Oral mucosa moist, no pharyngeal erythema or exudate, Hearing unchanged. Cardiovascular: Regular rate and rhythm, No murmur, Normal peripheral perfusion, No edema, no cardiac rub, no click. Respiratory: Lungs are clear to auscultation, respirations are non-labored, breath sounds are equal, Symmetrical chest wall expansion. Chest wall: No tenderness, No deformity. Back: Nontender, Normal range of motion, Normal alignment, no step-offs. Musculoskeletal: Normal ROM, normal strength, no tenderness, no swelling, no deformity. Gastrointestinal: Soft, Nontender, Non distended, No organomegaly. Neurological: Alert and oriented to person, place, time, and situation, No focal neurological deficit observed, CN II-XII intact, normal motor observed, normal speech observed, normal coordination observed. Lymphatics: No lymphadenopathy. Psychiatric: Cooperative, appropriate mood & affect, normal judgment. Medical Decision Making Differential Diagnosis: Myocardial infarction, non-ST elevation myocardial infarction, unstable angina, angina, anxiety, atypical chest pain, chest wall pain. Rationale: HEART SCORE HISTORY = Suspicion High =2, Mod=1, Low =0 EKG = Significant ST Depression =2, Non specific Repolarization Abn=1, Normal= 0 AGE > 65 =2, 45-65 =1, <45=0 RISK FACTORS = High Cholesterol, HTN, DM, Smoking, + FHx, Obesity: >3 Risk Factors or Hx of Atherosclerosis =2, 1-2=1, 0=0 TROPONIN= > 3 times normal =2, 1-3 Times =1, Normal=0 LOW RISK = Score 0-3 = 2% risk of MACE at 6 Weeks Moderate RISK = Score 4-6 = 16% HIGH RISK = Score >7 = 65%. Documents reviewed: Emergency department nurses' notes. Results review: Lab results : Lab Results 04/13/2020 3:41 EDT Osmolality Urine 642 mOsm/kg Sodium Ur [place] 42 mMole/Liter NA Urine Type U CleanCatch Urine Color Yellow Urine Appearance Clear Urine Specific [place] 1.022 Urine pH Dipstick 6.0 Urine Leukocyte Esterase Negative Urine Nitrite Negative Urine Protein Dipstick Negative Urine Glucose Dipstick 100 Urine Ketones Dipstick Negative Urine Urobilinogen Dipstick 0.2 EU/dL Urine Bilirubin Dipstick Negative Urine Blood Dipstick Negative 04/13/2020 0:27 EDT Sodium Level 138 mmol/L Potassium Level 4.0 mmol/L Chloride Level 106 mmol/L Carbon Dioxide Level 26 mmol/L Anion Gap 10 Glucose Level 108 mg/dL HI Blood Urea Nitrogen 11 mg/dL Creatinine Level 0.46 mg/dL LOW eGFR >60 mL/min/1.73m2 eGFR NonAfrican >60 mL/min/1.73m2 Bun/Creatinine 23.9 HI Calcium Level 9.0 mg/dL Protein Total 6.9 Gram/dL Albumin Level 3.5 Gram/dL Globulin 3.4 Gram/dL A/G Ratio 1.0 LOW Bilirubin Total 0.4 mg/dL Alk Phos 68 Units/Liter AST 10 Units/Liter ALT 29 Units/Liter Troponin I Ultra <0.015 ng/mL ProBNP 46 pg/mL WBC 13.6 K/uL HI RBC 4.69 Million/uL Hgb 13.6 Gram/dL Hct 40.8 % MCV 87.0 fL MCH 29.0 pg MCHC 33.3 Gram/dL Platelet Count 218 K/uL MPV 10.2 fL RDW 13.3 % Neut % 62.3 % Neut # 8.51 K/uL HI Lymph % 29.9 % Lymph # 4.08 K/uL HI [place] % 5.5 % [place] # 0.75 K/uL Eos % 1.2 % Eos # 0.17 K/uL Baso % 0.4 % Baso # 0.05 K/uL Slide Review No IG# 0 x10(3)/uL IG% 1 % . Chest X-Ray: No acute disease process, interpretation by Emergency Physician. Reexamination/ Reevaluation Time: 04/13/2020 00:24:00 . Course: improving. Assessment: exam unchanged. Time: 04/13/2020 01:46:00 . Course: improving. Assessment: exam unchanged. Notes: d/w pt labs/imaging results, d/d of sx, advised to admit pt to hospital, pt agreed for admission.. Impression and Plan Diagnosis Chest pain - Admitting, Emergency medicine, Medical Calls-Consults - JED ROSALES MD-CAR, phone call, recommends will admit pt, advised [facility] Cardiology General Admitssion Orders. Plan Condition: Stable. Disposition: Admit Admit/Transfer/Discharge: Place in Observation (Order): Start: 04/13/2020 1:54 EDT, Observation Reason: Chest pain, Unit type: Telemetry unit, Admitting: JED ROSALES MD-CAR. Counseled: Patient, Regarding diagnosis, Regarding diagnostic results, Regarding treatment plan, Regarding prescription, Patient indicated understanding of instructions. documented in this encounter Plan of Treatment Not on file documented as of this encounter Visit Diagnoses Not on filedocumented in this encounter Care Teams Data Architect Manager Relationship Specialty Start Date End Date Igor Meyers MD [address] [place] [address] PCP - General Family Medicine 11/23/22 08/22/23 Provider, Not In System, CHRISTIAN SALAZAR PCP - General 08/23/23 08/27/24 [facility], [facility] [place] [address] PCP - General 08/28/24 11/06/24 [facility], [facility]Doc [facility] [place] [address] PCP - General 11/07/24 02/22/25 [facility], Provider Not In The System, [address] [place] [address] PCP - General 02/23/25 06/26/25 [facility], Find-A-Doc [facility] [place] [address] PCP - General 06/27/25 documented as of this encounter
--- OUTSIDE RECORDS SUMMARY | 2025-08-12 20:13 | XMS_ITS | Encounter Summary ---
Author Organization [employer] ([place], [place], [place], [place], [place]) Address [address] [place] [address] Care Team Providers Care Skill Training Program Coordinator Name Role Phone Igor Meyers MD Primary Care Provider [phone] Provider, Not In System FOAM GUN OPERATOR Primary Care Provid er Unavailable [facility] Connection, Find-A-Doc Primary Care Provider [facility], [facility]A-Doc Primary Care Provider [facility], Provider Not In The System Primary Care Provider Unavailable [facility] Connection, Find-A-Doc Primary Care Provider Encounter Details Date Type Department Care Team (Late st Contact Info) Description 11/03/2019 Transcribed Document [facility] Radiology [address] [place] [address] Niranjan Villar MD [address] [place] [address] Dept. [place] [address] Social History Tobacco Use Types Packs/Day Years Used Date Smoking Tobacco: Never Assessed Comments Unknown Sex and Gender Information Value Date Recorded Sex Assigned at Not on file Legal Sex Female 1:33 PM CDT Gender Identity Not on file Sexual Orientation Not on file documented as of this encounter Miscellaneous Notes * Cerner Conversion Note - Niranjan Villar MD - 11/03/2019 10:08 AM EDT CR Chest 1 Vw Portable Ordered: 11/02/2019 Modified Reason for Exam: chest pain 11/03/2019 08:19 11/03/2019 09:08 (NIRANJAN VILLAR MD-EMR) Reviewed by Provider, No further action required Electronically signed by [facility] Conversion [employer] Founder Cerner at 12/10/2022 6:49 PM CDT documented in this encounter Plan of Treatment Not on file documented as of this encounter Visit Diagnoses Not on filedocumented in this encounter Care Teams Skill Training Program Coordinator Relationship Specialty Start Date End Date Igor Meyers MD [address] [place] [address] PCP - General Family Medicine 11/23/22 08/22/23 Provider, Not In System, CHRISTIAN SALAZAR PCP - General 08/23/23 08/27/24 [facility] Connection, [facility]Doc [facility] Find-a-Doc [place], [place] [id number] PCP - General 08/28/24 11/06/24 [facility], Find[facility]Doc [facility] Find-a-Doc [place], [place] [id number] PCP - General 11/07/24 02/22/25 [facility], Provider Not In The System, [place] [address] PCP - General 02/23/25 06/26/25 [facility] Connection, Find-A-Doc [facility] [place] [address] PCP - General 06/27/25 documented as of this encounter
--- OUTSIDE RECORDS SUMMARY | 2025-08-12 20:13 | XMS_ITS | Encounter Summary ---
Author Organization [employer] ([place], [place], [place], [place], [place]) Address [address] [place] [address] Care Team Providers Care Closing Coordinator Name Role Phone Igor Meyers MD Primary Care Provider [phone] Provider, Not In System INTERNAL MEDICINE PHYSICIAN ASSISTANT Primary Care Provid er Unavailable [facility] Connection, Find-A-Doc Primary Care Provider [facility], Find[facility]A-Doc Primary Care Provider [facility], Provider Not In The System Primary Care Provider Unavailable [facility] Connection, Find-A-Doc Primary Care Provider Encounter Details Date Type Department Care Team (Late st Contact Info) Description 04/13/2020 Transcribed Document [facility] [place] [address] [place] [address] ProviderRufino MD [address] [place] [address] Social History Tobacco Use Types Packs/Day Years Used Date Smoking Tobacco: Never Assessed Comments Unknown Sex and Gender Information Value Date Recorded Sex Assigned at Not on file Legal Sex Female 1:33 PM CDT Gender Identity Not on file Sexual Orientation Not on file documented as of this encounter Miscellaneous Notes * Cerner Conversion Note - Historical ProviderMD - 04/13/2020 11:[address] [facility] OT Charges Entered On: 04/13/2020 11:04 EDT Performed On: 04/13/2020 11:04 EDT by HEATHER MICHELE OTR/Carmelita Conrad OT Charges Screen For Adhesive Bandage Making Operator : 1 HEATHER MICHELE OTR/Carmelita - 04/13/2020 11:04 EDT documented in this encounter Plan of Treatment Not on file documented as of this encounter Visit Diagnoses Not on filedocumented in this encounter Care Teams Closing Coordinator Relationship Specialty Start Date End Date Igor Meyers MD [address] [place] [address] PCP - General Family Medicine 11/23/22 08/22/23 Provider, Not In System, CHRISTIAN SALAZAR PCP - General 08/23/23 08/27/24 [facility] Connection, [facility] Find-a-Doc [place], [place] [id number] PCP - General 08/28/24 11/06/24 [facility], [facility] [place] [address] PCP - General 11/07/24 02/22/25 [facility], Provider Not In The System, [place] [address] PCP - General 02/23/25 06/26/25 [facility] Connection, [facility] [place] [address] PCP - General 06/27/25 documented as of this encounter
--- OUTSIDE RECORDS SUMMARY | 2025-08-12 20:13 | XMS_ITS | Encounter Summary ---
Author Organization [employer] ([place], [place], [place], [place], [place]) Address [address] [place] [address] Care Team Providers Care Perinatal Breastfeeding Assistant Name Role Phone Igor Meyers MD Primary Care Provider [phone] Provider, Not In System WATER COMMISSIONER Primary Care Provid er Unavailable [facility] Connection, Find-A-Doc Primary Care Provider [facility], [facility]Doc Primary Care Provider [facility], Provider Not In The System Primary Care Provider Unavailable [facility] Connection, Find-A-Doc Primary Care Provider Encounter Details Date Type Department Care Team (Late st Contact Info) Description 04/13/2020 Transcribed Document [facility] [place] [facility] [place] [address] ProviderRufino MD [address] [place] [address] Social History Tobacco Use Types Packs/Day Years Used Date Smoking Tobacco: Never Assessed Comments Unknown Sex and Gender Information Value Date Recorded Sex Assigned at Not on file Legal Sex Female 1:33 PM CDT Gender Identity Not on file Sexual Orientation Not on file documented as of this encounter Miscellaneous Notes * [employer]ner Conversion Note - Historical ProviderMD - 04/13/2020 8:45 AM CDT Initial Discharge Planning Entered On: 04/13/2020 8:51 EDT Performed On: 04/13/2020 8:45 EDT by Lexii Bernal, RN-SUPERVISOR SECURITIES VAULT Initial Assessment I Previously Documented Living Environment : No qualifying data available. Living Situation : Home Patient Lives With : Alone Is the Patient a Caregiver at Home? : No Emergency Contact #1 : Travon Giang Emergency Contact #1 Emergency Contact #1 Relationship : Brother Emergency Contact #2 : NA Emergency Contact #2 Phone Number : NA Emergency Contact #2 Relationship : NA Enter Doctors Name : Igor Meyers MD Does Patient have PCP Listed? : Yes Medical Durable Power of Flexographic Press Operator Name : No Legal Guardian : No Is Guardianship Needed : No Lexii Bernal RN-SUPERVISOR SECURITIES VAULT - 04/13/2020 8:45 EDT Initial Assessment II Sensory and Motor Deficits : None Current Home Treatments and Equipment : Blood glucose monitor, CPAP Services and Community Resources : Other: n/a Does the Patient have a Floor to SNF Benefit? : No Lexii Bernal RN-SUPERVISOR SECURITIES VAULT - 04/13/2020 8:45 EDT Discharge Needs I Anticipated Discharge To, CM : Home independently, Home with family care Current Home Treatment/Equipment : Current Home Treatment/Equipment No qualifying data available. Post Acute/Home Treatments : None Documentation Status Complete : Yes Lexii Bernal RN-SUPERVISOR SECURITIES VAULT - 04/13/2020 8:45 EDT Discharge Needs II Professional Skilled Services : Professional Skilled Services No qualifying data available. Services and Community Resources : Other: n/a Needs Assistance with Transportation : No Discharge Options Discussed with Patient : Discharge transportation, DME Lexii Bernal RN-SUPERVISOR SECURITIES VAULT - 04/13/2020 8:45 EDT Narrative Note Narrative Note : LOW risk for readmission, admitted to [facility] for chest pain. Anticipate either cath or medication changes and then discharge home with no needs. Patient is iADLs at baseline. CM will continue to follow for discharge planning purposes. Lexii Bernal RN-SUPERVISOR SECURITIES VAULT - 04/13/2020 8:45 EDT documented in this encounter Plan of Treatment Not on file documented as of this encounter Visit Diagnoses Not on filedocumented in this encounter Care Teams Perinatal Breastfeeding Assistant Relationship Specialty Start Date End Date Igor Meyers MD [address] [place] [address] PCP - General Family Medicine 11/23/22 08/22/23 Provider, Not In System, WATER COMMISSIONER [place] PCP - General 08/23/23 08/27/24 [facility] Connection, [facility] [place] [address] PCP - General 08/28/24 11/06/24 [facility] Connection, [facility] [place] [address] PCP - General 11/07/24 02/22/25 [facility], Provider Not In The System, [place] [address] PCP - General 02/23/25 06/26/25 [facility] Connection, [facility] [place] [address] PCP - General 06/27/25 documented as of this encounter
--- OUTSIDE RECORDS SUMMARY | 2025-08-12 20:13 | XMS_ITS | Encounter Summary ---
Author Organization [employer] ([place], [place], [place], [place], [place]) Address [address] [place] [address] Care Team Providers Care Mill Manager Name Role Phone Igor Meyers MD Primary Care Provider [phone] Provider, Not In System TEST WORKER Primary Care Provid er Unavailable [facility], [facility]A-Doc Primary Care Provider [facility], [facility] Primary Care Provider [facility], Provider Not In The System Primary Care Provider Unavailable [facility], [facility] Primary Care Provider Encounter Details Date Type Department Care Team (Late st Contact Info) Description 04/13/2020 Transcribed Document [facility] [place] Family Medicine [address] [place] [address] ProviderRufino MD [address] [place] [address] Social History Tobacco Use Types Packs/Day Years Used Date Smoking Tobacco: Never Assessed Comments Unknown Sex and Gender Information Value Date Recorded Sex Assigned at Not on file Legal Sex Female 1:33 PM CDT Gender Identity Not on file Sexual Orientation Not on file documented as of this encounter Miscellaneous Notes * Cerner Conversion Note - Rufino ProviderMD - 04/13/2020 5:35 PM CDT Patient Education Materials Follows: Chest Wall Pain Chest wall pain is pain in or around the bones and muscles of your chest. Sometimes, an injury causes this pain. Excessive coughing or overuse of arm and chest muscles may also cause chest wall pain. Sometimes, the cause may not be known. This pain may take several weeks or longer to get better. Follow these instructions at home: Managing pain, stiffness, and swelling ??? If directed, put ice on the painful area: ? Put ice in a plastic bag. ? Place a towel between your skin and the bag. ? Leave the ice on for 20 minutes, 2?3 times per day. Activity ??? Rest as told by your health care provider. ??? Avoid activities that cause pain. These include any activities that use your chest muscles or your abdominal and side muscles to lift heavy items. Ask your health care provider what activities are safe for you. General instructions ??? Take tlrs-tjw-ljipsec and prescription medicines only as told by your health care provider. ??? Do not use any products that contain nicotine or tobacco, such as cigarettes, e-cigarettes, and chewing tobacco. These can delay healing after injury. If you need help quitting, ask your [...] light-headed. ??? You have a cough with mucus from your lungs (sputum) or you cough up blood. ??? You develop shortness of breath. These symptoms may represent a serious problem that is an emergency. Do not wait to see if the symptoms will go away. Get medical help right away. Call your local emergency services (911 in the [place] Do not drive yourself to the hospital. Summary ??? Chest wall pain is pain in or around the bones and muscles of your chest. ??? Depending on the cause, it may be treated with ice, rest, medicines, and avoiding activities that cause pain. ??? Contact a health care provider if you have a fever, worsening chest pain, or new symptoms. ??? Get help right away if you feel light-headed or you develop shortness of breath. These symptoms may be an emergency. This information is not intended to replace advice given to you by your health care provider. Make sure you discuss any questions you have with your health care provider. Document Released: 08/13/2006 Document Revised: 02/13/2019 Document Reviewed: 02/13/2019 [employer] Patient Education ? 2019 [employer]. Pulmonary Medicine Pleurisy Pleurisy is irritation and swelling (inflammation) of the linings of your lungs (pleura). This can cause pain in your chest, back, or shoulder. It can also cause trouble breathing. Follow these instructions at home: Medicines ??? Take tzrf-kdu-odbxmsz and prescription medicines only as told by your doctor. ??? If you were prescribed antibiotic medicine, take it as told by your doctor. Do not stop taking the antibiotic even if you start to feel better. Activity ??? Rest and return to your normal activities as told by your doctor. Ask your doctor what activities are safe for you. ??? Do not drive or use heavy machinery while taking prescription pain medicine. General instructions ??? Watch for any changes in your condition. ??? Take deep breaths often, even if it is painful. This can help prevent lung problems. ??? When lying down, lie on your painful side. This may help you feel less pain. ??? Do not smoke. If you need help quitting, ask your doctor. ??? Keep all follow-up visits as told by your doctor. This is important. Contact a doctor if: ??? You have pain that: ? Gets worse. ? Does not get better with medicine. ? Lasts for more than 1 week. ??? You have a fever or chills. ??? You have a cough that does not get better at home. ??? You have trouble breathing that does not get better at home. ??? You cough up liquid that looks like pus (purulent secretions). Get help right away if: ??? Your lips, fingernails, or toenails turn dark or turn blue. ??? You cough up blood. ??? You have trouble breathing that gets worse. ??? You are making loud noises when you breathe (wheezing) and this gets worse. ??? You have pain that spreads to your neck, arms, or jaw. ??? You get a rash. ??? You throw up (vomit). ??? You pass out (faint). Summary ??? Pleurisy is irritation and swelling (inflammation) of the linings of your lungs (pleura). ??? Pleurisy can cause pain and trouble breathing. ??? If you have a cough that does not get better at home, contact your doctor. ??? Get help right away if you are having trouble breathing and it is getting worse. This information is not intended to replace advice given to you by your health care provider. Make sure you discuss any questions you have with your health care provider. Document Released: 07/26/2009 Document Revised: 07/26/2018 Document Reviewed: 05/07/2017 Elsevier Patient Education ? 2019 [employer]. Electronically signed by Alphonse [facility] Conversion Tank Farm Operator Cerner at 12/10/2022 6:42 PM CDT documented in this encounter Plan of Treatment Not on file documented as of this encounter Visit Diagnoses Not on filedocumented in this encounter Care Teams Mill Manager Relationship Specialty Start Date End Date Igor Meyers MD [address] [place] [address] PCP - General Family Medicine 11/23/22 08/22/23 Provider, Not In System, CHRISTIAN SALAZAR PCP - General 08/23/23 08/27/24 [facility], [facility]Doc [facility] Find-a-Doc [place], [place] [id number] PCP - General 08/28/24 11/06/24 [facility], Find[facility]Doc [facility] Find-a-Doc [place], [place] [id number] PCP - General 11/07/24 02/22/25 [facility], Provider Not In The System, [place] [address] PCP - General 02/23/25 06/26/25 [facility], [facility]Doc [facility] Find-a-Doc [place], [place] [id number] PCP - General 06/27/25 documented as of this encounter
--- OUTSIDE RECORDS SUMMARY | 2025-08-12 20:13 | XMS_ITS | Encounter Summary ---
Author Organization [employer] ([place], [place], [place], [place], [place]) Address [address] [place] [address] Care Team Providers Care Insurance Clerk Name Role Phone Igor Meyers MD Primary Care Provider [phone] Provider, Not In System NUCLEAR WEAPONS SPECIALIST Primary Care Provid er Unavailable [facility], [facility]-Doc Primary Care Provider [facility], [facility] Primary Care Provider [facility], Provider Not In The System Primary Care Provider Unavailable [facility], [facility]Doc Primary Care Provider Encounter Details Date Type Department Care Team (Late st Contact Info) Description 04/24/2020 Transcribed Document [facility] [place] [facility] [place] [address] ProviderRufino MD [address] [place] [address] Social History Tobacco Use Types Packs/Day Years Used Date Smoking Tobacco: Never Assessed Comments Unknown Sex and Gender Information Value Date Recorded Sex Assigned at Not on file Legal Sex Female 1:33 PM CDT Gender Identity Not on file Sexual Orientation Not on file documented as of this encounter Miscellaneous Notes * Cerner Conversion Note - Rufino ProviderMD - 04/24/2020 12:42 AM CDT Pain Assessment Entered On: 04/24/2020 2:15 EDT Performed On: 04/24/2020 2:15 EDT by RAZ ADLER, RN Intervention Information: morphine Performed by RAZ ADLER, RN on 04/24/2020 01:03:00 EDT morphine,2mg IV Push,Peripheral Line 1 Pain Assessment Pain Assessment : Follow-up assessment Pain Scale Used : 0-10 Scale RAZ ADLER RN - 04/24/2020 2:15 EDT Pain Scale Intensity : 5 RAZ ADLER RN - 04/24/2020 2:15 EDT Image 4 - Images currently included in the form version of this document have not been included in the text rendition version of the form. Electronically signed by Alphonse, [facility] Conversion Ultrasound Tester Cerner at 12/10/2022 6:26 PM CDT documented in this encounter Plan of Treatment Not on file documented as of this encounter Visit Diagnoses Not on filedocumented in this encounter Care Teams Insurance Clerk Relationship Specialty Start Date End Date Igor Meyers MD [address] [place] [address] PCP - General Family Medicine 11/23/22 08/22/23 Provider, Not In System, CHRISTIAN SALAZAR PCP - General 08/23/23 08/27/24 [facility], Find-A-Doc [facility] [place], [place] [id number] PCP - General 08/28/24 11/06/24 [facility], Find[facility]A-Doc [facility] Find-a-Doc [place], [place] [id number] PCP - General 11/07/24 02/22/25 [facility], Provider Not In The System, [place] [address] PCP - General 02/23/25 06/26/25 [facility], Find[facility]A-Doc [facility] Find-a-Doc [place], [place] [id number] PCP - General 06/27/25 documented as of this encounter
--- OUTSIDE RECORDS SUMMARY | 2025-08-12 20:13 | XMS_ITS | Encounter Summary ---
Author Organization [employer] ([place], [place], [place], [place], [place]) Address [address] [place] [address] Care Team Providers Care Scrap Metal Burner Name Role Phone Igor Meyers MD Primary Care Provider [phone] Provider, Not In System ASSISTANT PROFESSOR NURSE EDUCATION Primary Care Provid er Unavailable [facility], Find-A-Doc Primary Care Provider [facility], [facility] Primary Care Provider [facility], Provider Not In The System Primary Care Provider Unavailable [facility], Find[facility]A-Doc Primary Care Provider Encounter Details Date Type Department Care Team (Late st Contact Info) Description 04/13/2020 Transcribed Document [facility] Family Medicine [facility] [place] [address] ProviderRufino MD [address] [place] [address] Social History Tobacco Use Types Packs/Day Years Used Date Smoking Tobacco: Never Assessed Comments Unknown Sex and Gender Information Value Date Recorded Sex Assigned at Not on file Legal Sex Female 1:33 PM CDT Gender Identity Not on file Sexual Orientation Not on file documented as of this encounter Miscellaneous Notes * Cerner Conversion Note - Historical ProviderMD - 04/13/2020 5:00 AM CDT Height and Weight, Routine Entered On: 04/13/2020 4:47 EDT Performed On: 04/13/2020 5:00 EDT by Shell Maria, RN Height and Weight, Routine Routine Weight Source : Standing scale Routine Weight Entry Format : [place] Routine Weight, Pounds : 191 lb Routine Weight, Ounces : 7 oz Routine Weight Calculation : 87.02 kg Height Source : Stated Height Entry Format : [place] Height, Feet : 4 ft Height, Inches : 11 Inch Clinical Height : 149.86 cm Body Surface Area (BSA), Routine : 1.81 m2 Body Mass Index (BMI), Routine : 38.75 kg/m2 Shell Maria RN - 04/13/2020 4:46 EDT Electronically signed by [facility] Conversion Public Health Assistant Cerner at 12/10/2022 6:50 PM CDT documented in this encounter Plan of Treatment Not on file documented as of this encounter Visit Diagnoses Not on filedocumented in this encounter Care Teams Scrap Metal Burner Relationship Specialty Start Date End Date Igor Meyers MD [address] [place] [address] PCP - General Family Medicine 11/23/22 08/22/23 Provider, Not In System, CHRISTIAN SALAZAR PCP - General 08/23/23 08/27/24 [facility], Find[facility]Doc [facility] [place], [place] [id number] PCP - General 08/28/24 11/06/24 [facility], Find-A-Doc [facility] Find-a-Doc [place], [place] [id number] PCP - General 11/07/24 02/22/25 [facility], Provider Not In The System, [place] [address] PCP - General 02/23/25 06/26/25 [facility], Find-A-Doc [facility] Find-a-Doc [place], [place] [id number] PCP - General 06/27/25 documented as of this encounter
--- OUTSIDE RECORDS SUMMARY | 2025-08-12 20:13 | XMS_ITS | Encounter Summary ---
Author Organization [employer] ([place], [place], [place], [place], [place]) Address [address] [place] [address] Care Team Providers Care Automation Manager Name Role Phone Igor Meyers MD Primary Care Provider [phone] Provider, Not In System TOWING PILOT Primary Care Provid er Unavailable [facility], [facility]Doc Primary Care Provider [facility], [facility]Doc Primary Care Provider [facility], Provider Not In The System Primary Care Provider Unavailable [facility], Find[facility]A-Doc Primary Care Provider Encounter Details Date Type Department Care Team (Late st Contact Info) Description 04/13/2020 Transcribed Document [facility] [place] [address] [place] [address] ProviderRufino MD [address] [place] [address] Social History Tobacco Use Types Packs/Day Years Used Date Smoking Tobacco: Never Assessed Comments Unknown Sex and Gender Information Value Date Recorded Sex Assigned at Not on file Legal Sex Female 1:33 PM CDT Gender Identity Not on file Sexual Orientation Not on file documented as of this encounter Miscellaneous Notes * Cerner Conversion Note - Historical ProviderMD - 04/13/2020 9:[address] [facility] Entered On: 04/13/2020 9:49 EDT Performed On: 04/13/2020 9:49 EDT by DOLORES ROBLES PT [facility] Physical Therapy Screen : 1 DOLORES ROBLES, PT - 04/13/2020 9:49 EDT documented in this encounter Plan of Treatment Not on file documented as of this encounter Visit Diagnoses Not on filedocumented in this encounter Care Teams Automation Manager Relationship Specialty Start Date End Date Igor Meyers MD [address] [place] [address] PCP - General Family Medicine 11/23/22 08/22/23 Provider, Not In System, CHRISTIAN SALAZAR PCP - General 08/23/23 08/27/24 [facility], Find[facility]Doc [facility] [place] [address] PCP - General 08/28/24 11/06/24 [facility], [facility]Doc [facility] [address] PCP - General 11/07/24 02/22/25 [facility], Provider Not In The System, [place] [address] PCP - General 02/23/25 06/26/25 [facility], Find[facility]Doc [facility] [place] [address] PCP - General 06/27/25 documented as of this encounter
--- OUTSIDE RECORDS SUMMARY | 2025-08-12 20:13 | XMS_ITS | Encounter Summary ---
Author Organization [employer] ([place], [place], [place], [place], [place]) Address [address] [place] [address] Care Team Providers Care Nonprofit Director Name Role Phone Igor Meyers MD Primary Care Provider [phone] Provider, Not In System INSTRUCTIONAL TECHNOLOGY COACH Primary Care Provid er Unavailable [facility], [facility]A-Doc Primary Care Provider [facility], [facility] Primary Care Provider [facility], Provider Not In The System Primary Care Provider Unavailable [facility], Find[facility]A-Doc Primary Care Provider Encounter Details Date Type Department Care Team (Late st Contact Info) Description 04/14/2020 Transcribed Document [facility] [place] Family Medicine [address] [place] [address] ProviderRufino MD [address] [place] [address] Social History Tobacco Use Types Packs/Day Years Used Date Smoking Tobacco: Never Assessed Comments Unknown Sex and Gender Information Value Date Recorded Sex Assigned at Not on file Legal Sex Female 1:33 PM CDT Gender Identity Not on file Sexual Orientation Not on file documented as of this encounter Miscellaneous Notes * Cerner Conversion Note - Rufino ProviderMD - 04/14/2020 9:59 AM CDT [facility]iac and Pulmonary Outpatient [facility] Entered On: 04/14/2020 10:00 EDT Performed On: 04/14/2020 9:59 EDT by MYRA CHAO, Damian-Clinical Coordinator I Cardiac and Pulmonary Outpatient Errol Patient is scheduled for Phase 2 Cardiac rehab : Patient provided Cardiac Rehab Phase 2 facilities close to home Cardiac Outpatient Rehab Evaluation Comment : Referral for CR faxed to [facility]. MYRA CHAO, Rn-Clinical Coordinator I - 04/14/2020 9:59 EDT documented in this encounter Plan of Treatment Not on file documented as of this encounter Visit Diagnoses Not on filedocumented in this encounter Care Teams Nonprofit Director Relationship Specialty Start Date End Date Igor Meyers MD [address] [place] [address] PCP - General Family Medicine 11/23/22 08/22/23 Provider, Not In System, CHRISTIAN SALAZAR PCP - General 08/23/23 08/27/24 [facility], Find[facility]Doc [facility] Find-a-Doc [place], [place] [id number] PCP - General 08/28/24 11/06/24 [facility], Find[facility]Doc [facility] [place] [address] PCP - General 11/07/24 02/22/25 [facility], Provider Not In The System, [place] [address] PCP - General 02/23/25 06/26/25 [facility], Find-A-Doc [facility] Find-a-Doc [place], [place] [id number] PCP - General 06/27/25 documented as of this encounter
--- OUTSIDE RECORDS SUMMARY | 2025-08-12 20:13 | XMS_ITS | Encounter Summary ---
Author Organization [employer] ([place], [place], [place], [place], [place]) Address [address] [place] [address] Care Team Providers Care Solid Waste Facility Supervisor Name Role Phone Igor Meyers MD Primary Care Provider [phone] Provider, Not In System CREW TRUCK DRIVER Primary Care Provid er Unavailable [facility], Find-A-Doc Primary Care Provider [facility], [facility]Doc Primary Care Provider [facility], Provider Not In The System Primary Care Provider Unavailable [facility], Find-A-Doc Primary Care Provider Encounter Details Date Type Department Care Team (Late st Contact Info) Description 04/13/2020 Transcribed Document [facility] [place] [facility] [place] [address] ProviderRufino MD [address] [place] [address] Social History Tobacco Use Types Packs/Day Years Used Date Smoking Tobacco: Never Assessed Comments Unknown Sex and Gender Information Value Date Recorded Sex Assigned at Not on file Legal Sex Female 1:33 PM CDT Gender Identity Not on file Sexual Orientation Not on file documented as of this encounter Miscellaneous Notes * Cerner Conversion Note - Rufino ProviderMD - 04/13/2020 2:52 AM CDT ED Discharge Entered On: 04/13/2020 2:53 EDT Performed On: 04/13/2020 2:52 EDT by Divina Lucas RN Discharge Process Patient Disposition : Admit/Observe Personal Belongings With Patient : Yes Patient Education Completed : Yes Teaching Evaluation : Verbalizes understanding IV Discontinued : No Nursing Documentation Completed : Yes Divina Lucas RN - 04/13/2020 2:52 EDT Admission, ED `Nurse Report (Hand Off) : Called Accompanied By, Discharge : Care provider Mode Of Departure : Wheelchair Divina Lucas RN - 04/13/2020 2:52 EDT Electronically signed by [facility] Conversion Him Analyst Cerner at 12/10/2022 6:45 PM CDT documented in this encounter Plan of Treatment Not on file documented as of this encounter Visit Diagnoses Not on filedocumented in this encounter Care Teams Solid Waste Facility Supervisor Relationship Specialty Start Date End Date Igor Meyers MD [address] [place] [address] PCP - General Family Medicine 11/23/22 08/22/23 Provider, Not In System, CHRISTIAN SALAZAR PCP - General 08/23/23 08/27/24 [facility], [facility]Doc [facility] [place] [address] PCP - General 08/28/24 11/06/24 [facility], Find-A-Doc [facility] [place] [address] PCP - General 11/07/24 02/22/25 [facility], Provider Not In The System, [place] [address] PCP - General 02/23/25 06/26/25 [facility], Find[facility]A-Doc [facility] [place] [address] PCP - General 06/27/25 documented as of this encounter
--- OUTSIDE RECORDS SUMMARY | 2025-08-12 20:14 | XMS_ITS | Encounter Summary ---
Author Organization [employer] ([place], [place], [place], [place], [place]) Address [address] [place] [address] Care Team Providers Care Hadoop Administrator Name Role Phone Igor Hairston MD Primary Care Provider [phone] Provider, Not In System HYDROMETEOROLOGY TEACHER Primary Care Provid er Unavailable [facility] Connection, [facility]A-Doc Primary Care Provider [facility], [facility] Primary Care Provider [facility], Provider Not In The System Primary Care Provider Unavailable [facility] Connection, [facility]A-Doc Primary Care Provider Encounter Details Date Type Department Care Team (Late st Contact Info) Description 03/19/2020 Transcribed Document [facility] [place] [facility] [place] [address] ProviderRufino MD [address] [place] [address] Social History Tobacco Use Types Packs/Day Years Used Date Smoking Tobacco: Never Assessed Comments Unknown Sex and Gender Information Value Date Recorded Sex Assigned at Not on file Legal Sex Female 1:33 PM CDT Gender Identity Not on file Sexual Orientation Not on file documented as of this encounter Miscellaneous Notes * Cerner Conversion Note - Rufino ProviderMD - 03/19/2020 1:[address] [address] ROBERTO RANDLE :1960 Visit Time:03/19/2020 Your Visit Summary Your Care Team Primary Provider: STEFAN SANTIAGO Secondary Provider: Your Diagnosis Atypical chest pain, Chest wall pain Chest pain Medical Information You may [...] do next Follow-Up Appointments Follow Up with JUVENAL ROSA When Within 2 to 3 days Comments CALL HER FOR APPOINTMENT ABOUT THE CHEST WALL PAIN. Where: [address] [place] [address]- Business (1) Follow Up with APPEARS THAT THIS PAIN IS NOT CARDIAC RELATED. SUGGEST YOU BE SEEN BY A DIGESTER DR ROSALES BELIEVES IT TO BE ARTHITIS RELATED AND IS WORSE WITH MVT. PLEASE CALL MD LISTED HERE FOR APPOINTMENT. OK TO USE TYLENOL FOR THIS PAIN When Within 2 to 3 days Follow Up with IGOR HAIRSTON When Within 2 to 3 days Where: [address] [place] [address] [facility] (1) Allergies sulfADIAZINE (C/O: a swelling, itching) sulfonamides (Rash, Itching) Immunizations This Visit No Immunizations Found Medications What How Much When Instructions Next Dose amLODIPine 5 Milligram(s) Oral Every Day atorvastatin (atorvastatin 40 mg oral tablet) 1 Tablet(s) Oral Every Day cholecalciferol (Vitamin D3) 2,000 International Units Oral Every Day glyBURIDE 5 Milligram(s) Oral Every Day metFORMIN (metformin) 1,000 Milligram(s) Oral Two Times A Day multivitamin Every Day nitroglycerin (Nitrostat 0.4 mg sublingual tablet) 1 Tablet(s) SubLINgual Every 5 minutes as needed for as needed for chest pain ranolazine (Ranexa 500 mg oral tablet, extended release) 1 Tablet(s) Oral Two Times A Day rivaroxaban (Xarelto 10 mg oral tablet) 1 [...] This Visit (last charted value for your 03/19/2020 visit) Hematology 03/19/2020 11:15 AM WBC: 11.8 K/uL -- Normal range between ( 3.9 and 10.0 ) RBC: 4.79 Million/uL -- Normal range between ( 3.93 and 5.22 ) Hct: 42.1 % -- Normal range between ( 34.1 and 44.9 ) Hgb: 13.9 Gram/dL -- Normal range between ( 11.2 and 15.7 ) Platelet Count: 290 K/uL -- Normal range between ( 163 and 369 ) MCH: 29.0 pg -- Normal range between ( 25.6 and 32.2 ) MCHC: 33.0 Gram/dL -- Normal range between ( 32.3 and 36.5 ) MCV: 87.9 fL -- Normal range between ( 79.0 and 94.8 ) Slide Review: No Eos %: 1.6 % -- Normal range between ( 1.0 and 7.0 ) Rice #: 0.72 K/uL -- Normal range between ( 0.24 and 0.82 ) Eos #: 0.19 K/uL -- Normal range between ( 0.04 and 0.54 ) Rice %: 6.1 % -- Normal range between ( 4.7 and 12.5 ) Baso %: 0.4 % -- Normal range between ( 0.0 and 1.0 ) Baso #: 0.05 K/uL -- Normal range between ( 0.01 and 0.08 ) RDW: 13.4 % -- Normal range between ( 11.6 and 14.4 ) Neut %: 58.3 % -- Normal range between ( 34.0 and 71.0 ) Neut #: 6.89 K/uL -- Normal range between ( 1.56 and 6.13 ) Lymph %: 32.6 % -- Normal range between ( 19.3 and 53.0 ) Lymph #: 3.86 K/uL -- Normal range between ( 1.18 and 3.74 ) MPV: 11.7 fL -- Normal range between ( 9.4 and 12.4 ) IG#: 0 x10(3)/uL IG%: 1 % -- Normal range between ( 0 and 1 ) Urinalysis 03/19/2020 11:02 AM Urine Nitrite: Negative Urine Leukocyte Esterase: Negative Urine Appearance: Clear Urine Glucose Dipstick: Negative Urine Blood Dipstick: Negative Urine Type: U CleanCatch Urine Urobilinogen Dipstick: 0.2 EU/dL -- Normal range between ( 0.2 and 1.0 ) Urine Protein Dipstick: Negative Urine Color: Yellow Urine Ketones Dipstick: Negative Urine pH Dipstick: 5.0 -- Normal range between ( 6.0 and 8.0 ) Urine Bilirubin Dipstick: Negative Urine Specific [place]: 1.015 -- Normal range between ( 1.005 and 1.030 ) General Chemistry 03/19/2020 11:15 AM Creatinine Level: 0.58 mg/dL -- Normal range between ( 0.55 and 1.02 ) Sodium Level: 141 mmol/L -- Normal range between ( 136 and 146 ) Potassium Level: 4.3 mmol/L -- Normal range between ( 3.5 and 5.1 ) Chloride Level: 107 mmol/L -- Normal range between ( 102 and 112 ) Carbon Dioxide Level: 28 mmol/L -- Normal range between ( 21 and 32 ) Anion Gap: 10 -- Normal range between ( 9 and 20 ) Bilirubin Total: 0.4 mg/dL -- Normal range between ( 0.2 and 1.3 ) A/G Ratio: 1.2 -- Normal range between ( 1.1 and 2.5 ) ALT: 30 Units/Liter -- Normal range between ( 12 and 78 ) AST: 41 Units/Liter -- Normal range between ( 5 and 37 ) Globulin: 3.3 Gram/dL -- Normal range between ( 1.5 and 4.5 ) Alk Phos: 77 Units/Liter -- Normal range between ( 27 and 136 ) Bilirubin Direct: <0.1 mg/dL -- Normal range between ( 0.0 and 0.2 ) Bun/Creatinine: 19.0 -- Normal range between ( 8.0 and 20.0 ) Calcium Level: 9.6 mg/dL -- Normal range between ( 8.5 and 10.1 ) eGFR : >60 mL/min/1.73m2 eGFR NonAfrican: >60 mL/min/1.73m2 Glucose Level: 109 mg/dL -- Normal range between ( 74 and 106 ) Magnesium Level: 1.8 mg/dL -- Normal range between ( 1.5 and 2.4 ) Blood Urea Nitrogen: 11 mg/dL -- Normal range between ( 7 and 22 ) Lactic Acid Level: 3.4 mmol/L -- Normal range between ( 0.4 and 2.0 ) Protein Total: 7.3 Gram/dL -- Normal range between ( 6.4 and 8.2 ) Albumin Level: 4.0 Gram/dL -- Normal range between ( 3.4 and 5.0 ) Cardiac Specific Markers 03/19/2020 11:15 AM Troponin I Ultra: <0.015 ng/mL -- Normal range between ( 0.015 and 0.045 ) ProBNP: 46 pg/mL -- Normal range between ( 0 and 125 ) Coagulation 03/19/2020 11:15 AM INR: 0.9 -- Normal range between ( 0.9 and 1.1 ) PTT: 21.1 Second(s) -- Normal range between ( 24.2 and 31.8 ) PT: 9.9 Second(s) -- Normal range between ( 9.6 and 11.5 ) Diagnostic Radiology 03/19/2020 11:25 AM CR Chest 1 Vw Portable: CR Chest 1 Vw Portable Education Materials Chest Wall Pain Chest wall pain is pain in or around the bones and muscles of your chest. Chest wall pain may be caused by: ??? An injury. ??? Coughing a lot. ??? Using your chest and arm muscles too much. Sometimes, the cause may not be known. This pain may take a few weeks or longer to get better. Follow these instructions at home: Managing pain, stiffness, and swelling If told, put ice on the painful area: ??? Put ice in a plastic bag. ??? Place a towel between your skin and the bag. ??? Leave the ice on for 20 minutes, 2???3 times a day. Activity ??? Rest as told by your doctor. ??? Avoid doing things that cause pain. This includes lifting heavy items. ??? Ask your doctor what activities are safe for you. General instructions ??? Take owvo-nta-tvajxql and prescription medicines only as told by [...] blood. ??? You are short of breath. These symptoms may be an emergency. Do not wait to see if the symptoms will go away. Get medical help right away. Call your local emergency services (911 in the [place] Do not drive yourself to the hospital. Summary ??? Chest wall pain is pain in or around the bones and muscles of your chest. ??? It may be treated with ice, rest, and medicines. Your condition may also get better if you avoid doing things that cause pain. ??? Contact a doctor if you have a fever, chest pain that gets worse, or new symptoms. ??? Get help right away if you feel light-headed or you get short of breath. These symptoms may be an emergency. This information is not intended to replace advice given to you by your health care provider. Make sure you discuss any questions you have with your health care provider. Document Released: 01/29/2009 Document Revised: 02/13/2019 Document Reviewed: 02/13/2019 [employer] Patient Education ?? 2020 [employer]. Nonspecific Chest Pain Chest pain can be [...] these instructions at home: Medicines ??? Take iqpo-aso-eeplbiz and prescription medicines only as told by [...] Eating a heart-healthy diet. A diet and corrosion control specialist (dietitian) can help you to learn [...] 01/29/2009 Document Revised: 02/13/2019 Document Reviewed: 02/13/2019 [employer] Patient Education ?? 2020 [employer]. Emergency Awareness and Preventative Care STROKE is [...] Assistance with quitting is available by contacting 7-426-CADB-NOW. This is a free resource providing counseling, [...] was given the opportunity to ask questions. Patient/Floor And Wall Applier Liquid Name: Patient/Floor And Wall Applier Liquid Signature: Relationship to Patient: Clinician/Hospital Floor And Wall Applier Liquid Signature: Please Provide a Telephone Number Where You Can Be Reached: Is it Permissible To Leave a Message? Date: Electronically signed by Alphonse [facility] Conversion Rotary Filter Operator Cerner at 12/10/2022 6:32 PM CDT documented in this encounter Plan of Treatment Not on file documented as of this encounter Visit Diagnoses Not on filedocumented in this encounter Care Teams Hadoop Administrator Relationship Specialty Start Date End Date Igor Hairston MD [address] [facility] [place] [address] PCP - General Family Medicine 11/23/22 08/22/23 Provider, Not In System, HYDROMETEOROLOGY TEACHER [place] PCP - General 08/23/23 08/27/24 [facility], [facility] [place] [address] PCP - General 08/28/24 11/06/24 [facility], [facility] [place] [address] PCP - General 11/07/24 02/22/25 [facility], Provider Not In The System, [address] [place] [address] PCP - General 02/23/25 06/26/25 [facility], [facility] [place] [address] PCP - General 06/27/25 documented as of this encounter
--- OUTSIDE RECORDS SUMMARY | 2025-08-12 20:14 | XMS_ITS | Encounter Summary ---
Author Organization [employer] ([place], [place], [place], [place], [place]) Address [address] [place] [address] Care Team Providers Care Office Machine Punch Operator Name Role Phone Igor Meyers MD Primary Care Provider [phone] Provider, Not In System TIRE ASSEMBLER Primary Care Provid er Unavailable [facility] Connection, [facility]Doc Primary Care Provider [facility], [facility] Primary Care Provider [facility], Provider Not In The System Primary Care Provider Unavailable [facility] Connection, [facility]Doc Primary Care Provider Encounter Details Date Type Department Care Team (Late st Contact Info) Description 11/03/2019 Transcribed Document [facility] [place] [address] ProviderRufino MD [address] [place] [address] Social History Tobacco Use Types Packs/Day Years Used Date Smoking Tobacco: Never Assessed Comments Unknown Sex and Gender Information Value Date Recorded Sex Assigned at Not on file Legal Sex Female 1:33 PM CDT Gender Identity Not on file Sexual Orientation Not on file documented as of this encounter Miscellaneous Notes * Cerner Conversion Note - Rufino ProviderMD - 11/03/2019 9:15 PM CDT Pain Assessment Entered On: 11/04/2019 2:29 EDT Performed On: 11/04/2019 1:45 EDT by KAIT HERNANDEZ, RN Intervention Information: acetaminophen-HYDROcodone Performed by KAIT HERNANDEZ, RN on 11/03/2019 23:15:00 EDT acetaminophen-HYDROcodone,1Tab Oral Pain Assessment Pain Assessment : Follow-up assessment Pain Scale Used : 0-10 Scale KAIT HERNANDEZ RN - 11/04/2019 2:26 EDT Pain Scale Intensity : 8 KAIT HERNANDEZ RN - 11/04/2019 2:26 EDT Image 4 - Images currently included in the form version of this document have not been included in the text rendition version of the form. Electronically signed by Alphonse, [facility] Conversion Metal Sprayer Machined Parts Cerner at 12/10/2022 6:36 PM CDT documented in this encounter Plan of Treatment Not on file documented as of this encounter Visit Diagnoses Not on filedocumented in this encounter Care Teams Office Machine Punch Operator Relationship Specialty Start Date End Date Igor Meyers MD [address] [place] [address] PCP - General Family Medicine 11/23/22 08/22/23 Provider, Not In System, CHRISTIAN SALAZAR PCP - General 08/23/23 08/27/24 [facility] Connection, [facility] [place], [place] [id number] PCP - General 08/28/24 11/06/24 [facility], [facility] [place] [address] PCP - General 11/07/24 02/22/25 [facility], Provider Not In The System[place] [address] PCP - General 02/23/25 06/26/25 [facility] Connection, [facility]Doc [facility] Find-a-Doc [place], [place] [id number] PCP - General 06/27/25 documented as of this encounter
--- OUTSIDE RECORDS SUMMARY | 2025-08-12 20:14 | XMS_ITS | Encounter Summary ---
Author Organization [employer] ([place], [place], [place], [place], [place]) Address [address] [place] [address] Care Team Providers Care Corporate Operations Compliance Manager Name Role Phone Igor Meyers MD Primary Care Provider [phone] Provider, Not In System CERTIFIED DIETARY MANAGER Primary Care Provid er Unavailable [facility] Connection, [facility]Doc Primary Care Provider [facility], [facility]Doc Primary Care Provider [facility], Provider Not In The System Primary Care Provider Unavailable [facility] Connection, [facility]A-Doc Primary Care Provider Encounter Details Date Type Department Care Team (Late st Contact Info) Description 08/11/2019 Transcribed Document [facility] [place] Family Medicine [address] [place] [address] ProviderRufino MD [address] [place] [address] Social History Tobacco Use Types Packs/Day Years Used Date Smoking Tobacco: Never Assessed Comments Unknown Sex and Gender Information Value Date Recorded Sex Assigned at Not on file Legal Sex Female 1:33 PM CDT Gender Identity Not on file Sexual Orientation Not on file documented as of this encounter Miscellaneous Notes * Cerner Conversion Note - Rufino ProviderMD - 08/11/2019 7:56 PM METALSMITH HELPER ED Discharge Entered On: 08/11/2019 19:56 EST Performed On: 08/11/2019 19:56 EST by Gladys Dolan RN-Flex Team Discharge Process Patient Disposition : Discharge Personal Belongings With Patient : Yes Patient Education Completed : Yes Teaching Evaluation : Verbalizes understanding IV Discontinued : Yes Nursing Documentation Completed : Yes Gladys Dolan RN-Flex Team - 08/11/2019 19:56 EST ED Discharge Discharge To : Home with ambulatory/outpatient follow-up Mode Of Departure : Private vehicle Accompanied By : Unaccompanied Discharge Instructions Reviewed With, Opportunity For Questions Given : Patient Prescriptions Given to Patient : Yes Number of Prescriptions Given : 1 Gladys Dolan RN-Flex Team - 08/11/2019 19:56 EST Electronically signed by [facility], [facility] Conversion Neck Skewer Cerner at 12/10/2022 6:49 PM CDT documented in this encounter Plan of Treatment Not on file documented as of this encounter Visit Diagnoses Not on filedocumented in this encounter Care Teams Corporate Operations Compliance Manager Relationship Specialty Start Date End Date Igor Meyers MD [address] [place] [address] PCP - General Family Medicine 11/23/22 08/22/23 Provider, Not In System, CHRISTIAN SALAZAR PCP - General 08/23/23 08/27/24 [facility] Connection, [facility] [place] [address] PCP - General 08/28/24 11/06/24 [facility] Connection, [facility] [place] [address] PCP - General 11/07/24 02/22/25 [facility], Provider Not In The System, [place] [address] PCP - General 02/23/25 06/26/25 [facility] Connection, [facility] [place], [place] [id number] PCP - General 06/27/25 documented as of this encounter
--- OUTSIDE RECORDS SUMMARY | 2025-08-12 20:14 | XMS_ITS | Encounter Summary ---
Author Organization [employer] ([place], [place], [place], [place], [place]) Address [address] [place] [address] Care Team Providers Care Storage Brine Worker Name Role Phone Igor Meyers MD Primary Care Provider [phone] Provider, Not In System FOOD CHEMIST Primary Care Provid er Unavailable [facility] Connection, [facility]Doc Primary Care Provider [facility], [facility]Doc Primary Care Provider [facility], Provider Not In The System Primary Care Provider Unavailable [facility] Connection, Find[facility]A-Doc Primary Care Provider Encounter Details Date Type Department Care Team (Late st Contact Info) Description 03/19/2020 Transcribed Document [facility] [place] Family Medicine [address] [place] [address] ProviderRufino MD [address] [place] [address] Social History Tobacco Use Types Packs/Day Years Used Date Smoking Tobacco: Never Assessed Comments Unknown Sex and Gender Information Value Date Recorded Sex Assigned at Not on file Legal Sex Female 1:33 PM CDT Gender Identity Not on file Sexual Orientation Not on file documented as of this encounter Miscellaneous Notes * Cerner Conversion Note - Rufino ProviderMD - 03/19/2020 1:31 PM CDT Electronically signed by Alphonse [facility] Conversion Tractor Drill Operator Cerner at 12/10/2022 6:40 PM CDT documented in this encounter Plan of Treatment Not on file documented as of this encounter Visit Diagnoses Not on filedocumented in this encounter Care Teams Storage Brine Worker Relationship Specialty Start Date End Date Igor Meyers MD [address] [place] [address] [place] [id number] PCP - General Family Medicine 11/23/22 08/22/23 Provider, Not In System, CHRISTIAN SALAZAR PCP - General 08/23/23 08/27/24 [facility] Connection, [facility]Doc [facility] Find-a-Doc [place], [place] [id number] PCP - General 08/28/24 11/06/24 [facility] Connection, [facility] [place] [place] [address] PCP - General 11/07/24 02/22/25 [facility], Provider Not In The System, [place] [address] PCP - General 02/23/25 06/26/25 [facility] Connection, [facility]Doc [facility] Find-a-Doc [place], [place] [id number] PCP - General 06/27/25 documented as of this encounter
--- OUTSIDE RECORDS SUMMARY | 2025-08-12 20:14 | XMS_ITS | Encounter Summary ---
Author Organization [employer] ([place], [place], [place], [place], [place]) Address [address] [place] [address] Care Team Providers Care Upper Cutter Out Name Role Phone Igor Meyers MD Primary Care Provider [phone] Provider, Not In System TIGHTENING MACHINE OPERATOR Primary Care Provid er Unavailable [facility] Connection, [facility]Doc Primary Care Provider [facility], [facility] Primary Care Provider [facility], Provider Not In The System Primary Care Provider Unavailable [facility] Connection, Find[facility]A-Doc Primary Care Provider Encounter Details Date Type Department Care Team (Late st Contact Info) Description 10/02/2019 Transcribed Document [facility] [place] [address] [place] [address] ProviderRufino MD [address] [place] [address] Social History Tobacco Use Types Packs/Day Years Used Date Smoking Tobacco: Never Assessed Comments Unknown Sex and Gender Information Value Date Recorded Sex Assigned at Not on file Legal Sex Female 1:33 PM CDT Gender Identity Not on file Sexual Orientation Not on file documented as of this encounter Miscellaneous Notes * Cerner Conversion Note - Historical ProviderMD - 10/02/2019 5:57 PM EXTERNAL GRINDER TOOL CR Chest 1 Vw Portable Ordered: 10/02/2019 Modified Reason for Exam: cp 10/02/2019 17:22 10/02/2019 17:57 (CHENG DYKES, GALLO) Reviewed by Provider, No further action required x1 Electronically signed by Storm Cunha Conversion Vice President Of Software Engineering Cerner at 12/10/2022 6:37 PM CDT documented in this encounter Plan of Treatment Not on file documented as of this encounter Visit Diagnoses Not on filedocumented in this encounter Care Teams Upper Cutter Out Relationship Specialty Start Date End Date Igor Meyers MD [address] [place] [address] PCP - General Family Medicine 11/23/22 08/22/23 Provider, Not In System, CHRISTIAN SALAZAR PCP - General 08/23/23 08/27/24 [facility] Connection, [facility] [place] [address] PCP - General 08/28/24 11/06/24 [facility] Connection, Find[facility]Doc [facility] [place] [address] PCP - General 11/07/24 02/22/25 [facility], Provider Not In The System, [address] [place] [address] PCP - General 02/23/25 06/26/25 [facility] Connection, [facility] [place] [address] PCP - General 06/27/25 documented as of this encounter
--- OUTSIDE RECORDS SUMMARY | 2025-08-12 20:14 | XMS_ITS | Encounter Summary ---
Author Organization [employer] ([place], [place], [place], [place], [place]) Address [address] [place] [address] Care Team Providers Care Chemistry Technician Name Role Phone Igor Meyers MD Primary Care Provider [phone] Provider, Not In System GREENS CUTTER Primary Care Provid er Unavailable [facility] Connection, Find-A-Doc Primary Care Provider [facility] Connection, Find-A-Doc Primary Care Provider [facility], Provider Not In The System Primary Care Provider Unavailable [facility] Connection, Find-A-Doc Primary Care Provider Encounter Details Date Type Department Care Team (Late st Contact Info) Description 04/12/2020 Transcribed Document [facility] [place] [facility] [place] [address] ProviderRufino MD [address] [place] [address] Social History Tobacco Use Types Packs/Day Years Used Date Smoking Tobacco: Never Assessed Comments Unknown Sex and Gender Information Value Date Recorded Sex Assigned at Not on file Legal Sex Female 1:33 PM CDT Gender Identity Not on file Sexual Orientation Not on file documented as of this encounter Miscellaneous Notes * Cerner Conversion Note - Rufino ProviderMD - 04/12/2020 10:15 PM CDT [place] Suicide Severity Rating Scale (C-SSRS) Entered On: 04/12/2020 22:37 EDT Performed On: 04/12/2020 22:36 EDT by Divina Lucas RN [place] Suicide Severity Rating Scale (C-SSRS) CSSRS Past Month Wish to be : No CSSRS Past Month Suicidal Thoughts : No CSSRS Lifetime Suicide Behavior : No Suicide Severity Rating Score : 0 Suicide Severity Rating : No Additional Care Required at this time Divina Lucas RN - 04/12/2020 22:36 EDT Electronically signed by Alphonse [facility] Conversion Glove Stitcher Cerner at 12/10/2022 6:51 PM CDT documented in this encounter Plan of Treatment Not on file documented as of this encounter Visit Diagnoses Not on filedocumented in this encounter Care Teams Chemistry Technician Relationship Specialty Start Date End Date Igor Meyers MD [address] [place] [address] PCP - General Family Medicine 11/23/22 08/22/23 Provider, Not In System, CHRISTIAN SALAZAR PCP - General 08/23/23 08/27/24 [facility] Connection, Find-A-Doc [facility] [place] [address] PCP - General 08/28/24 11/06/24 [facility] Connection, Find-A-Doc [facility] [place] [address] PCP - General 11/07/24 02/22/25 [facility], Provider Not In The System, [place] [address] PCP - General 02/23/25 06/26/25 [facility] Connection, Find-A-Doc [facility] [place] [address] PCP - General 06/27/25 documented as of this encounter
--- OUTSIDE RECORDS SUMMARY | 2025-08-12 20:14 | XMS_ITS | Encounter Summary ---
Author Organization [employer] ([place], [place], [place], [place], [place]) Address [address] [place] [address] Care Team Providers Care Hockey Player Name Role Phone Igor Hairston MD Primary Care Provider [phone] Provider, Not In System EDUCATIONAL TECHNOLOGY SPECIALIST Primary Care Provid er Unavailable [place] [...] st Contact Info) Description 03/19/2020 Transcribed Document [facility] [place] [address] ProviderRufino MD [address] [place] [address] Social History Tobacco Use Types Packs/Day Years Used Date Smoking Tobacco: Never Assessed Comments Unknown Sex and Gender Information Value Date Recorded Sex Assigned at Not on file Legal Sex Female 1:33 PM CDT Gender Identity Not on file Sexual Orientation Not on file documented as of this encounter Miscellaneous Notes * Cerner Conversion Note - Rufino ProviderMD - 03/19/2020 2:59 PM CDT [address] [address] ROBERTO RANDLE :1960 Visit Time:03/19/2020 [...] ABOUT THE CHEST WALL PAIN. Where: [address] [place] [address]- Business (1) Follow Up with APPEARS THAT THIS PAIN IS NOT CARDIAC RELATED. SUGGEST YOU BE SEEN BY A INSPECTOR TECHNICIAN DR ROSALES BELIEVES IT TO BE ARTHITIS RELATED AND IS WORSE WITH MVT. PLEASE CALL MD LISTED HERE FOR APPOINTMENT. OK TO USE TYLENOL FOR THIS PAIN When Within 2 to 3 days Follow Up with IGOR HAIRSTON When Within 2 to 3 days Where: [address] [place] [address] [facility] (1) Allergies sulfADIAZINE (C/O: a swelling, itching) [...] range between ( 1.0 and 7.0 ) [place] #: 0.72 K/uL -- Normal range between ( 0.24 and 0.82 ) [place] #: 0.19 K/uL -- Normal range between ( 0.04 and 0.54 ) [place] %: 6.1 % -- Normal range between [...] ) Urine Bilirubin Dipstick: Negative Urine Specific [place]: 1.015 -- Normal range between ( 1.005 and 1.030 ) General Chemistry 03/19/2020 1:15 PM Lactic Acid Level: 2.7 mmol/L -- Normal range between ( 0.4 and 2.0 ) 03/19/2020 11:15 AM Creatinine Level: 0.58 mg/dL [...] ( 7 and 22 ) Protein Total: 7.3 Gram/dL -- Normal [...] safe for you. General instructions ??? Take vcki-pdt-ainzslp and prescription medicines only as told by [...] 01/29/2009 Document Revised: 02/13/2019 Document Reviewed: 02/13/2019 [employer] Patient Education ?? 2020 [employer] Nonspecific Chest Pain Chest pain can be [...] these instructions at home: Medicines ??? Take rynb-vch-gtcufby and prescription medicines only as told by [...] Eating a heart-healthy diet. A diet and cardiopulmonary specialist (dietitian) can help you to learn [...] 01/29/2009 Document Revised: 02/13/2019 Document Reviewed: 02/13/2019 [employer] Patient Education ?? 2020 [employer]. Emergency Awareness and Preventative Care STROKE is [...] Assistance with quitting is available by contacting 4-583-LUID-NOW. This is a free resource providing counseling, [...] was given the opportunity to ask questions. Patient/Document Processor Name: Patient/Document Processor Signature: Relationship to Patient: Clinician/Hospital Document Processor Signature: Please Provide a Telephone Number Where You Can Be Reached: Is it Permissible To Leave a Message? Date: Electronically signed by [facility], [facility] Conversion Segmental Paver Installer Cerner at 12/10/2022 6:39 PM CDT documented in this encounter Plan of Treatment Not on file documented as of this encounter Visit Diagnoses Not on filedocumented in this encounter Care Teams Hockey Player Relationship Specialty Start Date End Date Igor Hairston MD [address] [place] [address] PCP - General Family Medicine 11/23/22 08/22/23 Provider, Not In System, CHRISTIAN SALAZAR PCP - General 08/23/23 08/27/24 [facility] Connection, Find[facility]Doc [facility] [place] [address] PCP - General 08/28/24 11/06/24 [facility] Connection, Find-A-Doc [facility] Find-a-Doc [place], [place] [id number] PCP - General 11/07/24 02/22/25 [facility], Provider Not In The System, [place] [address] PCP - General 02/23/25 06/26/25 [facility] Connection, Find-A-Doc [facility] [place] [address] PCP - General 06/27/25 documented as of this encounter
--- OUTSIDE RECORDS SUMMARY | 2025-08-12 20:14 | XMS_ITS | Encounter Summary ---
Author Organization [facility] [employer] ([place], [place], [place], [place], [place]) Address [address] [place] [address] Care Team Providers Care Straw Hat Brusher Name Role Phone Igor Meyers MD Primary Care Provider [phone] Provider, Not In System TREATING INSPECTOR Primary Care Provid er Unavailable [facility] Connection, Find-A-Doc Primary Care Provider [facility] Connection, Find-A-Doc Primary Care Provider [facility], Provider Not In The System Primary Care Provider Unavailable [facility] Connection, Find-A-Doc Primary Care Provider Encounter Details Date Type Department Care Team (Late st Contact Info) Description 11/03/2019 Transcribed Document [facility] [place] [address] [place] [address] ProviderRufino MD [address] [place] [address] Social History Tobacco Use Types Packs/Day Years Used Date Smoking Tobacco: Never Assessed Comments Unknown Sex and Gender Information Value Date Recorded Sex Assigned at Not on file Legal Sex Female 1:33 PM CDT Gender Identity Not on file Sexual Orientation Not on file documented as of this encounter Miscellaneous Notes * Cerner Conversion Note - Rufino ProviderMD - 11/03/2019 8:42 PM CDT ED Triage Entered On: 11/03/2019 20:49 EDT Performed On: 11/03/2019 20:47 EDT by KAIT HERNANDEZ, MOLDER SWEEP Triage Across the Room Chief Complaint : pt co Left sided chest pain that worsened since being seen yesterday for same symptoms. Pt reports feeling SOA with NV. Pt is calm alert skinpwd. Pt took x 2 nitro SL with no relief. Triage Date/Time : 11/03/2019 20:47 EDT KAIT HERNANDEZ RN - 11/03/2019 20:47 EDT DCP GENERIC CODE Tracking Acuity : 2 - Emergent Tracking Group : [facility] KAIT HERNANDEZ RN - 11/03/2019 20:47 EDT Mode of Arrival : Stretcher Transported to ED by : Ambulance/ALS EMS Service : [facility] To Room Via : Stretcher Accompanied By : Unaccompanied ED Vital Signs : Document Height & Weight : Document ED Allergies : Document ED Reason for Visit : Document Tetanus Immunization : Less than 5 years KAIT HERNANDEZ RN - 11/03/2019 20:47 EDT Infectious Disease History COVID19 Screening : No Physical contact outside [place] in the last 30 days : No Infectious Disease History : Chicken pox/Shingles, Herpes, Measles, Mumps Tuberculosis Symptoms : None KAIT HERNANDEZ RN - 11/03/2019 20:47 EDT Vital Signs ED Temperature Source : Tympanic Temperature Mode : Fahrenheit Temperature, Fahrenheit : 98.5 Deg F ED Pain : Yes Clinical Temperature, C : 36.9 Deg C Oxygen Therapy Mode : Room air Peripheral Pulse Rate : 75 bpm Respiratory Rate : 18 Breaths/Min Systolic Blood Pressure : 158 mmHg (HI) Diastolic Blood Pressure : 74 mmHg Oxygen Saturation : 96 % KAIT HERNANDEZ RN - 11/03/2019 20:47 EDT Allergy (As Of: 11/03/2019 20:49:23 EDT) Allergies (Active) sulfADIAZINE Estimated Onset Date: Unspecified ; Reactions: itching ; Created By: Ella Phelan Rn; Reaction Status: Active ; Category: Drug ; Substance: sulfADIAZINE ; Type: Allergy ; Severity: Severe ; Updated By: Ella Phelan Rn; Reviewed Date: 11/03/2019 20:48 EDT sulfonamides Estimated Onset Date: Unspecified ; Reactions: Itching, Rash ; Created By: Diana Michel, Pharmacist-Resident; Reaction Status: Active ; Category: Drug ; Substance: sulfonamides ; Type: Allergy ; Severity: Moderate ; Updated By: Diana Michel, Pharmacist-Resident; Source: Patient ; Reviewed Date: 11/03/2019 20:48 EDT Diagnosis Control ED (As Of: 11/03/2019 20:49:23 EDT) Problems(Active) Apnea, sleep (SNOMED CT :783709989 ) Name of Problem: Apnea, sleep ; Recorder: Sheryl Burnett RN; Confirmation: Confirmed ; Classification: Patient Stated ; Code: [id number] ; Contributor System: [employer] ; Last Updated: 08/12/2014 20:25 EST ; Life Cycle Date: 08/12/2014 ; Life Cycle Status: Active ; Vocabulary: SNOMED CT Chronic CHF (SNOMED CT :596836469 ) Name of Problem: Chronic CHF ; Recorder: Sheryl Burnett RN; Confirmation: Confirmed ; Classification: Patient Stated ; Code: 874738315 ; Contributor System: PowerChart ; Last Updated: 08/12/2014 20:25 EST ; Life Cycle Date: 08/12/2014 ; Life Cycle Status: Active ; Vocabulary: SNOMED CT COPD (chronic obstructive pulmonary disease) with emphysema (SNOMED CT :722553700 ) Name of Problem: COPD (chronic obstructive pulmonary disease) with emphysema ; Recorder: Sheryl Burnett RN; Confirmation: Confirmed ; Classification: Patient Stated ; Code: 704590516 ; Contributor System: StARTinitiativeChart ; Last Updated: 08/12/2014 20:25 EST ; Life Cycle Date: 08/12/2014 ; Life Cycle Status: Active ; Vocabulary: SNOMED CT Diabetes (SNOMED CT :710622694 ) Name of Problem: Diabetes ; Recorder: Sheryl Burnett RN; Confirmation: Confirmed ; Classification: Patient Stated ; Code: 677260491 ; Contributor System: PowerChart ; Last Updated: 08/12/2014 20:24 EST ; Life Cycle Date: 08/12/2014 ; Life Cycle Status: Active ; Vocabulary: SNOMED CT Genital herpes (SNOMED CT :28379172 ) Name of Problem: Genital herpes ; Recorder: Sheryl Burnett RN; Confirmation: Confirmed ; Classification: Patient Stated ; Code: 95471549 ; Contributor System: StARTinitiativeChart ; Last Updated: 08/12/2014 20:25 EST ; Life Cycle Date: 08/12/2014 ; Life Cycle Status: Active ; Vocabulary: SNOMED CT History of obstructive sleep apnea (IMO :98632062 ) Name of Problem: History of obstructive sleep apnea ; Recorder: SYSTEM, SYSTEM; Confirmation: Confirmed ; Classification: Medical ; Code: 06077715 ; Last Updated: 03/07/2018 10:59 EDT ; Life Cycle Date: 03/07/2018 ; Life Cycle Status: Active ; Vocabulary: IMO HTN (hypertension) (SNOMED CT :5969565809 ) Name of Problem: HTN (hypertension) ; Recorder: Sheryl Burnett RN; Confirmation: Confirmed ; Classification: Patient Stated ; Code: 4094244944 ; Contributor System: StARTinitiativeChart ; Last Updated: 08/12/2014 20:24 EST ; Life Cycle Date: 08/12/2014 ; Life Cycle Status: Active ; Vocabulary: SNOMED CT Hydrocephalus (SNOMED CT :896892335 ) Name of Problem: Hydrocephalus ; Recorder: Sheryl Burnett RN; Confirmation: Confirmed ; Classification: Patient Stated ; Code: 820576659 ; Contributor System: [employer] ; Last Updated: 08/12/2014 20:24 EST ; Life Cycle Date: 08/12/2014 ; Life Cycle Status: Active ; Vocabulary: SNOMED CT Hyperlipemia (SNOMED CT :55439472 ) Name of Problem: Hyperlipemia ; Recorder: Sheryl Burnett RN; Confirmation: Confirmed ; Classification: Patient Stated ; Code: 94997865 ; Contributor System: StARTinitiativeChart ; Last Updated: 08/12/2014 20:24 EST ; Life Cycle Date: 08/12/2014 ; Life Cycle Status: Active ; Vocabulary: SNOMED CT Myocardial infarction (SNOMED CT :73519244 ) Name of Problem: Myocardial infarction ; Recorder: Sheryl Burnett RN; Confirmation: Confirmed ; Classification: Patient Stated ; Code: 45647519 ; Contributor System: StARTinitiativeChart ; Last Updated: 08/12/2014 20:25 EST ; Life Cycle Date: 08/12/2014 ; Life Cycle Status: Active ; Vocabulary: SNOMED CT Diagnoses(Active) Chest pain Date: 11/03/2019 ; Diagnosis Type: Reason For Visit ; Confirmation: Complaint of ; Clinical Dx: Chest pain ; Classification: Medical ; Clinical Service: Emergency medicine ; Code: PNED ; Probability: 0 ; Diagnosis Code: [id number] ED Height and Weight Height Source : Measured Height Entry Format : [place] Height, Feet : 4 ft(Converted to: 122 cm, 48 Inch) Height, Inches : 11 Inch(Converted to: 0 ft 11 Inch, 27.94 cm) Clinical Height : 149.86 cm Weight Source, ED : Standing scale Weight Entry Format : [place] Weight, Pounds : 190 lb Clinical Dosing Weight : 86.36 kg Body Surface Area (BSA) : 1.81 m2 Body Mass Index : 38.5 kg/m2 (HI) [place] Body Weight (IBW) : 42.87 kg KAIT HERNANDEZ RN - 11/03/2019 20:47 EDT Pain Assessment Pain Assessment : Initial assessment Pain Scale Used : 0-10 Scale KATI HERNANDEZ RN - 11/03/2019 20:47 EDT Pain Scale Intensity : 10 KAIT HERNANDEZ RN - 11/03/2019 20:47 EDT Image 4 - Images currently included in the form version of this document have not been included in the text rendition version of the form. ED Influenza/Pneumoccocal Vaccine Influenza Immunization, Current Season : Unknown Previous Vaccines from Immunization Schedule : No qualifying data available. KAIT HERNANDEZ RN - 11/03/2019 20:47 EDT Electronically signed by Alphonse [facility] Conversion Clinical Pharmacy Coordinator Cerner at 12/10/2022 6:39 PM CDT documented in this encounter Plan of Treatment Not on file documented as of this encounter Visit Diagnoses Not on filedocumented in this encounter Care Teams Straw Hat Brusher Relationship Specialty Start Date End Date Igor Meyers MD [address] [place] [address] PCP - General Family Medicine 11/23/22 08/22/23 Provider, Not In System, CHRISTIAN SALAZAR PCP - General 08/23/23 08/27/24 [facility] Connection, Find-A-Doc [facility] [place] [address] PCP - General 08/28/24 11/06/24 [facility] Connection, Find-A-Doc [facility] [place] [address] PCP - General 11/07/24 02/22/25 [facility], Provider Not In The System, [place] [address] PCP - General 02/23/25 06/26/25 [facility], Find-A-Doc [facility] [place] [address] PCP - General 06/27/25 documented as of this encounter
--- OUTSIDE RECORDS SUMMARY | 2025-08-12 20:14 | XMS_ITS | Encounter Summary ---
Author Organization [employer] ([place], [place], [place], [place], [place]) Address [address] [place] [address] Care Team Providers Care Sole Painter Name Role Phone Igor Meyers MD Primary Care Provider [phone] Provider, Not In System SALES TRAINEE Primary Care Provid er Unavailable [facility] Connection, Find-A-Doc Primary Care Provider [facility] Connection, Find-A-Doc Primary Care Provider [facility], Provider Not In The System Primary Care Provider Unavailable [facility] Connection, Find-A-Doc Primary Care Provider Encounter Details Date Type Department Care Team (Late st Contact Info) Description 11/03/2019 Transcribed Document [facility] [place] [facility] [place] [address] ProviderRufino MD [address] [place] [address] Social History Tobacco Use Types Packs/Day Years Used Date Smoking Tobacco: Never Assessed Comments Unknown Sex and Gender Information Value Date Recorded Sex Assigned at Not on file Legal Sex Female 1:33 PM CDT Gender Identity Not on file Sexual Orientation Not on file documented as of this encounter Miscellaneous Notes * Cerner Conversion Note - Historical ProviderMD - 11/03/2019 8:42 PM CDT [place] Suicide Severity Rating Scale (C-SSRS) Entered On: 11/04/2019 2:29 EDT Performed On: 11/04/2019 1:45 EDT by KAIT HERNANDEZ RN [place] Suicide Severity Rating Scale (C-SSRS) CSSRS Past Month Wish to be : No CSSRS Past Month Suicidal Thoughts : No CSSRS Lifetime Suicide Behavior : No Suicide Severity Rating Score : 0 Suicide Severity Rating : No Additional Care Required at this time Thoughts of Harming/Killing Others : No KAIT HERNANDEZ, RN - 11/04/2019 2:26 EDT Electronically signed by Alphonse [facility] Conversion Turkey Egg Gatherer Cerner at 12/10/2022 6:26 PM CDT documented in this encounter Plan of Treatment Not on file documented as of this encounter Visit Diagnoses Not on filedocumented in this encounter Care Teams Sole Painter Relationship Specialty Start Date End Date Igor Meyers MD [address] [place] [address] PCP - General Family Medicine 11/23/22 08/22/23 Provider, Not In System, CHRISTIAN SALAZAR PCP - General 08/23/23 08/27/24 [facility] Connection, Find-A-Doc [facility] Find-a-Doc [place], [place] [id number] PCP - General 08/28/24 11/06/24 [facility] Connection, Find-A-Doc [facility] Find-a-Doc [place], [place] [id number] PCP - General 11/07/24 02/22/25 [facility], Provider Not In The System, [place] [address] PCP - General 02/23/25 06/26/25 [facility] Connection, Find-A-Doc [facility] Find-a-Doc [place], [place] [id number] PCP - General 06/27/25 documented as of this encounter
--- OUTSIDE RECORDS SUMMARY | 2025-08-12 20:14 | XMS_ITS | Encounter Summary ---
Author Organization [employer] ([place], [place], [place], [place], [place]) Address [address] [place] [address] Care Team Providers Care Design Engineer Marine Equipment Name Role Phone Igor Meyers MD Primary Care Provider [phone] Provider, Not In System LASER BEAM CUTTER Primary Care Provid er Unavailable [facility] Connection, Find-A-Doc Primary Care Provider [facility] Connection, Find-A-Doc Primary Care Provider [facility], Provider Not In The System Primary Care Provider Unavailable [facility] Connection, Find-A-Doc Primary Care Provider Encounter Details Date Type Department Care Team (Late st Contact Info) Description 03/19/2020 Transcribed Document [facility] [place] [facility] [place] [address] ProviderRufino MD [address] [place] [address] Social History Tobacco Use Types Packs/Day Years Used Date Smoking Tobacco: Never Assessed Comments Unknown Sex and Gender Information Value Date Recorded Sex Assigned at Not on file Legal Sex Female 1:33 PM CDT Gender Identity Not on file Sexual Orientation Not on file documented as of this encounter Miscellaneous Notes * Cerner Conversion Note - Rufino ProviderMD - 03/19/2020 3:23 PM CDT ED Discharge Entered On: 03/19/2020 15:23 EDT Performed On: 03/19/2020 15:23 EDT by Carolyne Allen RN Discharge Process Patient Disposition : Discharge Personal Belongings With Patient : Yes Patient Education Completed : Yes Teaching Evaluation : Verbalizes understanding IV Discontinued : Yes Nursing Documentation Completed : Yes Carolyne Allen RN - 03/19/2020 15:23 EDT ED Discharge Discharge To : Home with ambulatory/outpatient follow-up Mode Of Departure : Ambulatory Discharge Instructions Reviewed With, Opportunity For Questions Given : Patient Prescriptions Given to Patient : Nini Carolyne Allen RN - 03/19/2020 15:23 EDT Electronically signed by [facility] Conversion Molder Shoulder Pad Cerner at 12/10/2022 6:38 PM CDT documented in this encounter Plan of Treatment Not on file documented as of this encounter Visit Diagnoses Not on filedocumented in this encounter Care Teams Design Engineer Marine Equipment Relationship Specialty Start Date End Date Igor Meyers MD [address] [place] [address] PCP - General Family Medicine 11/23/22 08/22/23 Provider, Not In System, CHRISTIAN SALAZAR PCP - General 08/23/23 08/27/24 [facility] Connection, Find-A-Doc [facility] [place] [address] PCP - General 08/28/24 11/06/24 [facility] Connection, [facility] [place] [address] PCP - General 11/07/24 02/22/25 [facility], Provider Not In The System, [place] [address] PCP - General 02/23/25 06/26/25 [facility] Connection, [facility] [place] [address] PCP - General 06/27/25 documented as of this encounter
--- OUTSIDE RECORDS SUMMARY | 2025-08-12 20:14 | XMS_ITS | Encounter Summary ---
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 Primary Care Provid er Unavailable [facility] Connection, Find-A-Doc Primary Care Provider [facility], Find[facility]A-Doc Primary Care Provider [facility], Provider Not In The System Primary Care Provider Unavailable [facility], Find-A-Doc Primary Care Provider Encounter Details Date Type Department Care Team (Late st Contact Info) Description 10/02/2019 Transcribed Document [facility] [place] Family Medicine [facility] [place] [address] ProviderRufino MD [address] [place] [address] Social History Tobacco Use Types Packs/Day Years Used Date Smoking Tobacco: Never Assessed Comments Unknown Sex and Gender Information Value Date Recorded Sex Assigned at Not on file Legal Sex Female 1:33 PM CDT Gender Identity Not on file Sexual Orientation Not on file documented as of this encounter Miscellaneous Notes * Cerner Conversion Note - Rufino ProviderMD - 10/02/2019 5:06 PM BINDING DYER [address] [address] ROBERTO RANDLE :1960 Visit Time:10/02/2019 Your Visit Summary Your Care Team Primary Provider: REGINALD KEENAN Secondary Provider: Your Diagnosis Atypical chest pain Chest pain Elevated blood pressure reading Hyperglycemia Medical Information You may obtain a copy [...] to 3 days Where: [address] [place] [address]- Business (1) [place] [address] Business (1) [address] [place] [address]- Business (1) Allergies sulfADIAZINE (itching) sulfonamides (Rash, Itching) Immunizations This Visit No Immunizations Found Medications What How Much When Instructions Next Dose The home medications listed are only as [...] This Visit (last charted value for your 10/02/2019 visit) Hematology 10/02/2019 12:57 PM WBC: 12.8 K/uL -- Normal range between ( 3.9 and 10.0 ) RBC: 5.15 Million/uL -- Normal range between ( 3.93 and 5.22 ) Hct: 45.4 % -- Normal range between ( 34.1 and 44.9 ) Hgb: 15.2 Gram/dL -- Normal range between ( 11.2 and 15.7 ) Platelet Count: 243 K/uL -- Normal range between ( 163 and 369 ) MCH: 29.5 pg -- Normal range between ( 25.6 and 32.2 ) MCHC: 33.5 Gram/dL -- Normal range between ( 32.3 and 36.5 ) MCV: 88.2 fL -- Normal range between ( 79.0 and 94.8 ) Slide Review: No Eos %: 1.5 % -- Normal range between ( 1.0 and 7.0 ) [place] #: 0.79 K/uL -- Normal range between ( 0.24 and 0.82 ) Eos #: 0.19 K/uL -- Normal range between ( 0.04 and 0.54 ) [place] %: 6.2 % -- Normal range between ( 4.7 and 12.5 ) Baso %: 0.6 % -- Normal range between ( 0.0 and 1.0 ) Baso #: 0.08 K/uL -- Normal range between ( 0.01 and 0.08 ) RDW: 14.1 % -- Normal range between ( 11.6 and 14.4 ) Neut %: 63.5 % -- Normal range between ( 34.0 and 71.0 ) Neut #: 8.12 K/uL -- Normal range between ( 1.56 and 6.13 ) Lymph %: 27.4 % -- Normal range between ( 19.3 and 53.0 ) Lymph #: 3.51 K/uL -- Normal range between ( 1.18 and 3.74 ) MPV: 12.3 fL -- Normal range between ( 9.4 and 12.4 ) IG#: 0 x10(3)/uL IG%: 1 % -- Normal range between ( 0 and 1 ) General Chemistry 10/02/2019 12:57 PM Creatinine Level: 0.55 mg/dL -- Normal range between ( 0.55 and 1.02 ) Sodium Level: 138 mmol/L -- Normal range between ( 136 and 146 ) Potassium Level: 4.6 mmol/L -- Normal range between ( 3.5 [...] between ( 1.1 and 2.5 ) ALT: 28 Units/Liter -- Normal range between ( 12 and 78 ) AST: 29 Units/Liter -- Normal range between ( 5 [...] mL/min/1.73m2 eGFR NonAfrican: >60 mL/min/1.73m2 Glucose Level: 167 mg/dL -- Normal range between ( 74 and 106 ) Magnesium Level: 1.7 mg/dL -- Normal range between ( 1.5 and 2.4 ) Blood Urea Nitrogen: 11 mg/dL -- Normal range between ( 7 and 22 ) Protein Total: 6.9 Gram/dL -- Normal range between ( 6.4 and 8.2 ) Albumin Level: 3.2 Gram/dL -- Normal range between ( 3.4 and 5.0 ) Lipase Level: 122 Units/Liter -- Normal range between ( 73 and 393 ) Cardiac Specific Markers 10/02/2019 3:54 PM Troponin I Ultra: <0.015 ng/mL -- Normal range between ( 0.015 and 0.045 ) 10/02/2019 12:57 PM ProBNP: 19 pg/mL -- Normal range between ( 0 and 125 ) Coagulation 10/02/2019 12:57 PM INR: 1.0 -- Normal range between ( 0.9 and 1.1 ) PT: 10.3 Second(s) -- Normal range between ( 9.6 and 11.5 ) Education Materials Atypical Chest Pain Chest pain can be caused [...] you start to feel better. ??? Take cfya-zqg-npjeuwj and prescription medicines only as told by [...] 05/23/2006 Document Revised: 05/07/2017 Document Reviewed: 05/07/2017 [employer] Interactive Patient Education ?? 2017 [employer]. Emergency Awareness and Preventative Care STROKE is [...] Assistance with quitting is available by contacting 8-139-MHZJ-NOW. This is a free resource providing counseling, [...] was given the opportunity to ask questions. Patient/Box Turner Name: Patient/Box Turner Signature: Relationship to Patient: Clinician/Hospital Box Turner Signature: Please Provide a Telephone Number Where You Can Be Reached: Is it Permissible To Leave a Message? Date: documented in this encounter Plan of Treatment Not on file documented as of this encounter Visit Diagnoses Not on filedocumented in this encounter Care Teams Athletic Team Physician Relationship Specialty Start Date End Date Igor Meyers MD [address] [place], [place] [address] [address] PCP - General Family Medicine 11/23/22 08/22/23 Provider, Not In System, CHRISTIAN SALAZAR PCP - General 08/23/23 08/27/24 [facility], Find-A-Doc [facility] Connection Find-a-Doc [place] [address] PCP - General 08/28/24 11/06/24 [facility], Find-A-Doc [facility] Connection Find-a-Doc [place] [address] PCP - General 11/07/24 02/22/25 [facility], Provider Not In The System, [place] [address] PCP - General 02/23/25 06/26/25 [facility] Connection, Find-A-Doc [facility] Find-a-Doc [place], [place] [id number] PCP - General 06/27/25 documented as of this encounter
--- OUTSIDE RECORDS SUMMARY | 2025-08-12 20:14 | XMS_ITS | Encounter Summary ---
Author Organization [employer] ([place], [place], [place], [place], [place]) Address [address] [place] [address] Care Team Providers Care Director Of Quality Improvement Name Role Phone Igor Meyers MD Primary Care Provider [phone] Provider, Not In System APPLICATION INTEGRATION ARCHITECT Primary Care Provid er Unavailable [facility] Connection, Find-A-Doc Primary Care Provider [facility], Find[facility]A-Doc Primary Care Provider [facility], Provider Not In The System Primary Care Provider Unavailable [facility] Connection, Find-A-Doc Primary Care Provider Encounter Details Date Type Department Care Team (Late st Contact Info) Description 10/02/2019 Transcribed Document [facility] Family Medicine [facility] [place] [address] ProviderRufino MD [address] [place] [address] Social History Tobacco Use Types Packs/Day Years Used Date Smoking Tobacco: Never Assessed Comments Unknown Sex and Gender Information Value Date Recorded Sex Assigned at Not on file Legal Sex Female 1:33 PM CDT Gender Identity Not on file Sexual Orientation Not on file documented as of this encounter Miscellaneous Notes * Cerner Conversion Note - Rufino ProviderMD - 10/02/2019 12:27 PM 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 MASTER ED Assessment Entered On: 10/02/2019 12:54 EST Performed On: 10/02/2019 12:54 EST by Akshat Mercedes, RN PRODUCTION Quick Look Assessment Level of Consciousness : Alert, Awake Affect/Behavior : Appropriate, Calm, Cooperative Orientation : Oriented x 4 Skin Temperature : Warm Skin Description : Normal for ethnicity, [place] Akshat Mercedes RN - 10/02/2019 12:54 EST ED General-Functional Assess Information Obtained From : Patient Preferred Communication Mode : Verbal Communication Barrier : None Primary Language : Martiniquais Any Spiritual/Cultural Needs or Requests : No Currently in Unsafe Situation : No Akshat Mercedes RN - 10/02/2019 12:54 EST Social Habits Smoking Status : Never (less than 100 in lifetime; none in last 30 days) Smokeless Tobacco Status : Never Desires Tobacco Cessation Calc : 0 Akshat Mercedes RN - 10/02/2019 12:54 EST Social History (As Of: 10/02/2019 12:54:44 EST) Tobacco: Smoking Status Never smoker. (Last [...] WDL with exceptions Cardiovascular Symptoms : Chest pain at rest, Chest pain with activity Heart Rhythm : Regular Chest Pain : Yes Akshat Mercedes RN - 10/02/2019 12:54 EST documented in this encounter Plan of Treatment Not on file documented as of this encounter Visit Diagnoses Not on filedocumented in this encounter Care Teams Director Of Quality Improvement Relationship Specialty Start Date End Date Igor Meyers MD [address] [place] [address] PCP - General Family Medicine 11/23/22 08/22/23 Provider, Not In System, HCRISTIAN SALAZAR PCP - General 08/23/23 08/27/24 [facility] Adan, Find-A-Doc [facility] [place] [address] PCP - General 08/28/24 11/06/24 [facility] Connection, Find-A-Doc [facility] [place] [address] PCP - General 11/07/24 02/22/25 [facility], Provider Not In The System, [place] [address] PCP - General 02/23/25 06/26/25 [facility] Connection, Find-A-Doc [facility] [place] [address] PCP - General 06/27/25 documented as of this encounter
--- OUTSIDE RECORDS SUMMARY | 2025-08-12 20:14 | XMS_ITS | Encounter Summary ---
Author Organization [employer] ([place], [place], [place], [place], [place]) Address [address] [place] [address] Care Team Providers Care Asset Liability Analyst Name Role Phone Igor Meyers MD Primary Care Provider [phone] Provider, Not In System RESERVOIR ENGINEERING MANAGER Primary Care Provid er Unavailable [facility] Connection, Find-A-Doc Primary Care Provider [facility] Connection, Find[facility]A-Doc Primary Care Provider [facility], Provider Not In The System Primary Care Provider Unavailable [facility] Connection, Find-A-Doc Primary Care Provider Encounter Details Date Type Department Care Team (Late st Contact Info) Description 11/03/2019 Transcribed Document [facility] [place] Family Medicine [facility] [place] [address] ProviderRufino MD [address] [place] [address] Social History Tobacco Use Types Packs/Day Years Used Date Smoking Tobacco: Never Assessed Comments Unknown Sex and Gender Information Value Date Recorded Sex Assigned at Not on file Legal Sex Female 1:33 PM CDT Gender Identity Not on file Sexual Orientation Not on file documented as of this encounter Miscellaneous Notes * Cerner Conversion Note - Rufino ProviderMD - 11/03/2019 3:13 AM CDT [address] [address] ROBERTO RANDLE :1960 Visit Time:11/02/2019 Your Visit Summary Your Care Team Primary Provider: MARVIN ORTIZ Secondary Provider: Your Diagnosis Atypical chest pain Chest pain Diarrhea Medical Information You may obtain a copy [...] 2 to [address] Rosales's office in the morning for a follow up appointment in 1-2 days Return any problems Take imodium over the counter if your diarrhea continues Where: [address] [place] [phone]- Business (1) Follow Up with UNKNOWN PHY When Within [...] This Visit (last charted value for your 11/02/2019 visit) Hematology 11/02/2019 11:31 PM WBC: 9.6 K/uL -- Normal range between ( 3.9 and 10.0 ) RBC: 4.78 Million/uL -- Normal range between ( 3.93 and 5.22 ) Hct: 41.4 % -- Normal range between ( 34.1 and 44.9 ) Hgb: 13.9 Gram/dL -- Normal range between ( 11.2 and 15.7 ) Platelet Count: 257 K/uL -- Normal range between ( 163 and 369 ) MCH: 29.1 pg -- Normal range between ( 25.6 and 32.2 ) MCHC: 33.6 Gram/dL -- Normal range between ( 32.3 and 36.5 ) MCV: 86.6 fL -- Normal range between ( 79.0 and 94.8 ) Slide Review: No Eos %: 2.0 % -- Normal range between ( 1.0 and 7.0 ) [place] #: 0.51 K/uL -- Normal range between ( 0.24 and 0.82 ) Eos #: 0.19 K/uL -- Normal range between ( 0.04 and 0.54 ) [place] %: 5.3 % -- Normal range between ( 4.7 and 12.5 ) Baso %: 0.6 % -- Normal range between ( 0.0 and 1.0 ) Baso #: 0.06 K/uL -- Normal range between ( 0.01 and 0.08 ) RDW: 13.5 % -- Normal range between ( 11.6 and 14.4 ) Neut %: 56.0 % -- Normal range between ( 34.0 and 71.0 ) Neut #: 5.36 K/uL -- Normal range between ( 1.56 and 6.13 ) Lymph %: 35.7 % -- Normal range between ( 19.3 and 53.0 ) Lymph #: 3.42 K/uL -- Normal range between ( 1.18 and 3.74 ) MPV: 10.1 fL -- Normal range between ( 9.4 and 12.4 ) IG#: 0 x10(3)/uL IG%: 0 % -- Normal range between ( 0 and 1 ) General Chemistry 11/03/2019 2:24 AM Glucose POC2: 98 mg/dL -- Normal range between ( 70 and 110 ) 11/02/2019 11:31 PM Creatinine Level: 0.55 mg/dL -- Normal range between ( 0.55 and 1.02 ) Sodium Level: 138 mmol/L -- Normal range between ( 136 and 146 ) Potassium Level: 4.0 mmol/L -- Normal range between ( 3.5 and 5.1 ) Chloride Level: 106 mmol/L -- Normal range between ( 102 and 112 ) Carbon Dioxide Level: 24 mmol/L -- Normal range between ( 21 and 32 ) Anion Gap: 12 -- Normal range between ( 9 and 20 ) Bilirubin Total: 0.2 mg/dL -- Normal range between ( 0.2 and 1.3 ) A/G Ratio: 1.0 -- Normal range between ( 1.1 and 2.5 ) ALT: 24 Units/Liter -- Normal range between ( 12 and 78 ) AST: 12 Units/Liter -- Normal range between ( 5 and 37 ) Globulin: 3.7 Gram/dL -- Normal range between ( 1.5 and 4.5 ) Alk Phos: 75 Units/Liter -- Normal range between ( 27 and 136 ) Bun/Creatinine: 25.5 -- Normal range between ( 8.0 and 20.0 ) Calcium Level: 9.4 mg/dL -- Normal range between ( 8.5 and 10.1 ) eGFR : >60 mL/min/1.73m2 eGFR NonAfrican: >60 mL/min/1.73m2 Glucose Level: 176 mg/dL -- Normal range between ( 74 and 106 ) Blood Urea Nitrogen: 14 mg/dL -- Normal range between ( 7 and 22 ) Protein Total: 7.3 Gram/dL -- Normal range between ( 6.4 and 8.2 ) Albumin Level: 3.6 Gram/dL -- Normal range between ( 3.4 and 5.0 ) Cardiac Specific Markers 11/03/2019 2:03 AM Troponin I Ultra: <0.015 ng/mL -- Normal range between ( 0.015 and 0.045 ) Education Materials Chest Wall Pain Chest wall [...] minutes, 2???3 times per day. ??? Take mvps-gop-methysf and prescription medicines only as told by [...] 08/13/2006 Document Revised: 12/21/2016 Document Reviewed: 11/08/2015 Elsevier Interactive Patient Education ?? 2019 [employer] Emergency Awareness and Preventative Care STROKE [...] Assistance with quitting is available by contacting 4-223-CVWUNOW. This is a free resource providing counseling, support, and referral. Or you may contact your personal physician. [place] Suicide Prevention Lifeline: The National Suicide Prevention [...] was given the opportunity to ask questions. Patient/Highway Administrative Engineer Name: Patient/Highway Administrative Engineer Signature: Relationship to Patient: Clinician/Hospital Highway Administrative Engineer Signature: Please Provide a Telephone Number Where You Can Be Reached: Is it Permissible To Leave a Message? Date: Electronically signed by Alphonse, [facility] Conversion Ad Taker Cerner at 12/10/2022 6:47 PM CDT documented in this encounter Plan of Treatment Not on file documented as of this encounter Visit Diagnoses Not on filedocumented in this encounter Care Teams Asset Liability Analyst Relationship Specialty Start Date End Date Igor Meyers MD [address] [place] [address] PCP - General Family Medicine 11/23/22 08/22/23 Provider, Not In System, CHRISTIAN SALAZAR PCP - General 08/23/23 08/27/24 [facility] Connection, Find-A-Doc [facility] [place] [address] PCP - General 08/28/24 11/06/24 [facility] Connection, Find-A-Doc [facility] [place] [address] PCP - General 11/07/24 02/22/25 [facility], Provider Not In The System, [place] [address] PCP - General 02/23/25 06/26/25 [facility] Connection, Find-A-Doc [facility] [place] [address] PCP - General 06/27/25 documented as of this encounter
--- OUTSIDE RECORDS SUMMARY | 2025-08-12 20:14 | XMS_ITS | Encounter Summary ---
Author Organization [employer] ([place], [place], [place], [place], [place]) Address [address] [place] [address] Care Team Providers Care Commissioner Of Officials Name Role Phone Igor Meyers MD Primary Care Provider [phone] Provider, Not In System BOSS DYER Primary Care Provid er Unavailable [facility] Connection, Find-A-Doc Primary Care Provider [facility] Connection, [facility]Doc Primary Care Provider [facility], Provider Not In The System Primary Care Provider Unavailable [facility], Find-A-Doc Primary Care Provider Encounter Details Date Type Department Care Team (Late st Contact Info) Description 10/02/2019 Transcribed Document [facility] [place] [address] [place] [address] ProviderRufino MD [address] [place] [address] Social History Tobacco Use Types [...] - Rufino ProviderMD - 10/02/2019 12:27 PM SHINE WORKER ED Triage Entered On: 10/02/2019 12:39 EST Performed On: 10/02/2019 12:32 EST by Akshat Mercedes, B2B OUTSIDE SALES REPRESENTATIVE Triage Across the Room Chief Complaint : pt c/o left sided chest pain radiating down left arm since 1000 this am. pt took 4 81mg aspirin and 2 nitro. Triage Date/Time : 10/02/2019 12:32 EST Akshat Mercedes RN - 10/02/2019 12:32 EST DCP GENERIC CODE Tracking Acuity : 2 - Emergent Tracking Group : [facility] ED [facility] Akshat Mercedes RN - 10/02/2019 12:32 EST Mode of Arrival : Stretcher Transported to ED by : Ambulance/ALS EMS Service : [place] To Room Via : Stretcher Accompanied By : fitness centre manager ED Vital Signs : Document Height & Weight : Document ED Allergies : Document ED Reason for Visit : Document Tetanus Immunization : Less than 5 years Akshat Mercedes RN - 10/02/2019 12:32 EST Infectious Disease History Physical contact outside [place] in the last 30 days : No Infectious Disease History : Chicken pox/Shingles, Herpes, Measles, Mumps Tuberculosis Symptoms : None Akshat Mercedes RN - 10/02/2019 12:32 EST Vital Signs ED Temperature Source : Oral Temperature Mode : Fahrenheit Temperature, Fahrenheit : 98.4 Deg F ED Pain : Yes Clinical Temperature, C : 36.9 Deg C Oxygen Therapy Mode : Room air Peripheral Pulse Rate : 83 bpm Respiratory Rate : 18 Breaths/Min Systolic Blood Pressure : 144 mmHg (HI) Diastolic Blood Pressure : 73 mmHg Oxygen Saturation : 98 % Akshat Mercedes RN - 10/02/2019 12:32 EST Allergy (As Of: 10/02/2019 12:39:08 EST) Allergies (Active) sulfADIAZINE Estimated Onset Date: Unspecified ; Reactions: itching ; Created By: Ella Phelan Rn; Reaction Status: Active ; Category: Drug ; Substance: sulfADIAZINE ; Type: Allergy ; Severity: Severe ; Updated By: Ella Phelan Rn; Reviewed Date: 08/11/2019 17:57 EST sulfonamides Estimated Onset Date: Unspecified ; Reactions: Itching, Rash ; Created By: Diana Michel, Pharmacist-Resident; Reaction Status: Active ; Category: Drug ; Substance: sulfonamides ; Type: Allergy ; Severity: Moderate ; Updated By: Diana Michel, Pharmacist-Resident; Source: Patient ; Reviewed Date: 08/11/2019 17:57 EST Diagnosis Control ED (As Of: 10/02/2019 12:39:08 EST) Problems(Active) Apnea, sleep (SNOMED CT :060668704 ) Name of Problem: Apnea, sleep ; Recorder: Sheryl Burnett RN; Confirmation: Confirmed ; Classification: Patient Stated ; Code: [id number] ; Contributor System: PaybubbleChart ; Last Updated: 08/12/2014 20:25 EST ; Life Cycle Date: 08/12/2014 ; Life Cycle Status: Active ; Vocabulary: SNOMED CT Chronic CHF (SNOMED CT :575540595 ) Name of Problem: Chronic CHF ; Recorder: Sheryl Burnett RN; Confirmation: Confirmed ; Classification: Patient Stated ; Code: [id number] ; Contributor System: PaybubbleChart ; Last Updated: 08/12/2014 20:25 EST ; Life Cycle Date: 08/12/2014 ; Life Cycle Status: Active ; Vocabulary: SNOMED CT COPD (chronic obstructive pulmonary disease) with emphysema (SNOMED CT :667177725 ) Name of Problem: COPD (chronic obstructive pulmonary disease) with emphysema ; Recorder: Sheryl Burnett RN; Confirmation: Confirmed ; Classification: Patient Stated ; Code: [id number] ; Contributor System: PaybubbleChart ; Last Updated: 08/12/2014 20:25 EST ; Life Cycle Date: 08/12/2014 ; Life Cycle Status: Active ; Vocabulary: SNOMED CT Diabetes (SNOMED CT :730881073 ) Name of Problem: Diabetes ; Recorder: Sheryl Burnett RN; Confirmation: Confirmed ; Classification: Patient Stated ; Code: [id number] ; Contributor System: PaybubbleChart ; Last Updated: 08/12/2014 20:24 EST ; Life Cycle Date: 08/12/2014 ; Life Cycle Status: Active ; Vocabulary: SNOMED CT Genital herpes (SNOMED CT :99113093 ) Name of Problem: Genital herpes ; Recorder: Sheryl Burnett RN; Confirmation: Confirmed ; Classification: Patient Stated ; Code: 15473278 ; Contributor System: PaybubbleChart ; Last Updated: 08/12/2014 20:25 EST ; Life Cycle Date: 08/12/2014 ; Life Cycle Status: Active ; Vocabulary: SNOMED CT History of obstructive sleep apnea (IMO :67296218 ) Name of Problem: History of obstructive sleep apnea ; Recorder: SYSTEM, SYSTEM; Confirmation: Confirmed ; Classification: Medical ; Code: [id number] ; Last Updated: 03/07/2018 10:59 EDT ; Life Cycle Date: 03/07/2018 ; Life Cycle Status: Active ; Vocabulary: IMO HTN (hypertension) (SNOMED CT :1069522956 ) Name of Problem: HTN (hypertension) ; Recorder: Sheryl Burnett RN; Confirmation: Confirmed ; Classification: Patient Stated ; Code: [id number] ; Contributor System: PaybubbleChart ; Last Updated: 08/12/2014 20:24 EST ; Life Cycle Date: 08/12/2014 ; Life Cycle Status: Active ; Vocabulary: SNOMED CT Hydrocephalus (SNOMED CT :636680892 ) Name of Problem: Hydrocephalus ; Recorder: Sheryl Burnett RN; Confirmation: Confirmed ; Classification: Patient Stated ; Code: [id number] ; Contributor System: PowerChart ; Last Updated: 08/12/2014 20:24 EST ; Life Cycle Date: 08/12/2014 ; Life Cycle Status: Active ; Vocabulary: SNOMED CT Hyperlipemia (SNOMED CT :09804687 ) Name of Problem: Hyperlipemia ; Recorder: Sheryl Burnett RN; Confirmation: Confirmed ; Classification: Patient Stated ; Code: 85116755 ; Contributor System: PowerChart ; Last Updated: 08/12/2014 20:24 EST ; Life Cycle Date: 08/12/2014 ; Life Cycle Status: Active ; Vocabulary: SNOMED CT Myocardial infarction (SNOMED CT :41104418 ) Name of Problem: Myocardial infarction ; Recorder: Sheryl Burnett RN; Confirmation: Confirmed ; Classification: Patient Stated ; Code: 04321296 ; Contributor System: PaybubbleChart ; Last Updated: 08/12/2014 20:25 EST ; Life Cycle Date: 08/12/2014 ; Life Cycle Status: Active ; Vocabulary: SNOMED CT Diagnoses(Active) Chest pain Date: 10/02/2019 ; Diagnosis Type: Reason For Visit ; Confirmation: Complaint of ; Clinical Dx: Chest pain ; Classification: Medical ; Clinical Service: Emergency medicine ; Code: PNED ; Probability: 0 ; Diagnosis Code: [id number] ED Height and Weight Height Source : Stated Height Entry Format : [place] Height, Feet : 4 ft(Converted to: 122 cm, 48 Inch) Height, Inches : 11 Inch(Converted to: 0 ft 11 Inch, 27.94 cm) Clinical Height : 149.86 cm Weight Source, ED : Standing scale Weight Entry Format : [place] Weight, Pounds : 195 lb Clinical Dosing Weight : 88.64 kg Body Surface Area (BSA) : 1.83 m2 Body Mass Index : 39.5 kg/m2 (HI) [place] Body Weight (IBW) : 42.87 kg Akshat Mercedes RN - 10/02/2019 12:32 EST Pain Assessment Pain Assessment : Initial assessment Pain Scale Used : 0-10 Scale Akshat Mercedes RN - 10/02/2019 12:32 EST Pain Scale Intensity : 8 Akshat Mercedes RN - 10/02/2019 12:32 EST Image 4 - Images currently included in the form version of this document have not been included in the text rendition version of the form. Electronically signed by Alphonse [facility] Conversion System Development Engineer Cerner at 12/10/2022 6:34 PM CDT documented in this encounter Plan of Treatment Not on file documented as of this encounter Visit Diagnoses Not on filedocumented in this encounter Care Teams Commissioner Of Officials Relationship Specialty Start Date End Date Igor Meyers MD [address] [place] [address] PCP - General Family Medicine 11/23/22 08/22/23 Provider, Not In System, CHRISTIAN SALAZAR PCP - General 08/23/23 08/27/24 [facility] Connection, Find-A-Doc [facility] Find-a-Doc [place], [place] [id number] PCP - General 08/28/24 11/06/24 [facility], Find[facility]Doc [facility] [place] [address] PCP - General 11/07/24 02/22/25 [facility], Provider Not In The System, [place] [address] PCP - General 02/23/25 06/26/25 [facility] Connection, Find[facility]A-Doc [facility] Find-a-Doc [place], [place] [id number] PCP - General 06/27/25 documented as of this encounter
--- OUTSIDE RECORDS SUMMARY | 2025-08-12 20:14 | XMS_ITS | Encounter Summary ---
Author Organization [employer] ([place], [place], [place], [place], [place]) Address [address] [place] [address] Care Team Providers Care Wagon Person Name Role Phone Igor Meyers MD Primary Care Provider [phone] Provider, Not In System TECHNICAL SOLUTIONS DIRECTOR Primary Care Provid er Unavailable [facility] Connection, Find-A-Doc Primary Care Provider [facility] Connection, Find[facility]A-Doc Primary Care Provider [facility], Provider Not In The System Primary Care Provider Unavailable [facility] Connection, Find-A-Doc Primary Care Provider Encounter Details Date Type Department Care Team (Late st Contact Info) Description 11/03/2019 Transcribed Document [facility] [place] [facility] [address] ProviderRufino MD [address] [place] [address] Social History Tobacco Use Types [...] ProviderMD - 11/03/2019 8:42 PM CDT ED Assessment Entered On: 11/04/2019 2:28 EDT Performed On: 11/04/2019 1:45 EDT by KAIT HERNANDEZ WOOL CARDER Quick Look Assessment Level of Consciousness : Alert, Awake Affect/Behavior : Calm, Cooperative Orientation : Oriented x 4 Skin Temperature : Warm KAIT HERNANDEZ RN - 11/04/2019 2:26 EDT ED General-Functional Assess Information Obtained From : Patient Preferred Communication Mode : Verbal Communication Barrier : None Primary Language : Serbian Any Spiritual/Cultural Needs or Requests : No Currently in Unsafe Situation : No KAIT HERNANDEZ RN - 11/04/2019 2:26 EDT Social Habits Smoking Status : Never (less than 100 in lifetime; none in last 30 days) Smokeless Tobacco Status : Never Desires Tobacco Cessation Calc : 0 KAIT HERNANDEZ RN - 11/04/2019 2:26 EDT Social History (As Of: 11/04/2019 02:28:54 EDT) Tobacco: Smoking Status Never smoker. (Last [...] Cardiovascular ASMT, ED Cardiovascular Symptoms : Chest discomfort at rest Capillary Refill, Left Hand : Less than/Equal to (</=) 2 seconds Capillary Refill, Right Hand : Less than/Equal to (</=) 2 seconds KAIT HERNANDEZ RN - 11/04/2019 2:26 EDT Respiratory Respiratory Assessment WDL : WDL KAIT HERNANDEZ RN - 11/04/2019 2:26 EDT Gastrointestinal ED Gastrointestinal Symptoms : Nausea KAIT HERNANDEZ RN - 11/04/2019 2:26 EDT documented in this encounter Plan of Treatment Not on file documented as of this encounter Visit Diagnoses Not on filedocumented in this encounter Care Teams Wagon Person Relationship Specialty Start Date End Date Igor Meyers MD [address] [place] [address] PCP - General Family Medicine 11/23/22 08/22/23 Provider, Not In System, CHRISTIAN SALAZAR PCP - General 08/23/23 08/27/24 [facility] Connection, Find-A-Doc [facility] [place] [address] PCP - General 08/28/24 11/06/24 [facility] Connection, [facility]Doc [facility] Find-a-Doc [place], [place] [id number] PCP - General 11/07/24 02/22/25 [facility], Provider Not In The System, [address] [place] [address] PCP - General 02/23/25 06/26/25 [facility] Connection, Find-A-Doc [facility] [place] [address] PCP - General 06/27/25 documented as of this encounter
--- OUTSIDE RECORDS SUMMARY | 2025-08-12 20:14 | XMS_ITS | Encounter Summary ---
Author Organization [employer] ([place], [place], [place], [place], [place]) Address [address] [place] [address] Care Team Providers Care Marketing Technologist Name Role Phone Igor Meyers MD Primary Care Provider [phone] Provider, Not In System SHREDDED FILLER MACHINE WRAPPER LAYER Primary Care Provid er Unavailable [facility] Connection, Find-A-Doc Primary Care Provider [facility] Connection, Find[facility]A-Doc Primary Care Provider [facility], Provider Not In The System Primary Care Provider Unavailable [facility] Connection, Find-A-Doc Primary Care Provider Encounter Details Date Type Department Care Team (Late st Contact Info) Description 03/19/2020 Transcribed Document [facility] [place] Medicine [facility] [place] [address] ProviderRufino MD [address] [place] [address] Social History Tobacco Use Types Packs/Day Years Used Date Smoking Tobacco: Never Assessed Comments Unknown Sex and Gender Information Value Date Recorded Sex Assigned at Not on file Legal Sex Female 1:33 PM CDT Gender Identity Not on file Sexual Orientation Not on file documented as of this encounter Miscellaneous Notes * Cerner Conversion Note - Rufino ProviderMD - 03/19/2020 10:36 AM CDT ED Assessment Entered On: 03/19/2020 12:30 EDT Performed On: 03/19/2020 11:00 EDT by Carolyne Allen, PRODUCTION TECH Quick Look Assessment Level of Consciousness : Alert, Awake Affect/Behavior : Appropriate, Calm, Cooperative Orientation : Oriented x 4 Skin Description : Normal for ethnicity Carolyne Allen RN - 03/19/2020 12:12 EDT ED General-Functional Assess Preferred Communication Mode : Verbal Communication Barrier : None Primary Language : Rwandan Any Spiritual/Cultural Needs or Requests : No Currently in Unsafe Situation : No Carolyne Allen RN - 03/19/2020 12:12 EDT Social Habits Smoking Status : Never (less than 100 in lifetime; none in last 30 days) Smokeless Tobacco Status : Never Desires Tobacco Cessation Calc : 0 Carolyne Allen RN - 03/19/2020 12:12 EDT Social History (As Of: 03/19/2020 12:30:23 EDT) Tobacco: Smoking Status Never smoker. (Last Updated: 08/12/2014 20:30:11 EST by Sheryl Burnett, RN) Alcohol: Use in Last 12 Months: No. (Last Updated: 08/12/2014 20:30:02 EST by Shreyl Burnett, RN) Substance Abuse: Drug Use Hx: No. Use in Last 12 Months: No. (Last Updated: 08/12/2014 20:30:16 EST by Sheryl Burnett, RN) Home/Environment: Lives with Alone. Home equipment: CPAP/BiPAP, Glucose monitoring. (Last Updated: 08/12/2014 20:30:08 EST by Sheryl Burnett, RN) Cardiovascular ASMT, ED Cardiovascular Assessment WDL : WDL with exceptions (Comment: sharp stabbing pain [Carolyne Allen RN - 03/19/2020 12:12 EDT] ) Cardiovascular Symptoms : Chest pain at rest Carolyne Allen RN - 03/19/2020 12:12 EDT Respiratory Respiratory Assessment WDL : WDL with exceptions (Comment: SOA [Carolyne Allen RN - 03/19/2020 12:12 EDT] ) Carolyne Allen RN - 03/19/2020 12:12 EDT Electronically signed by Alphonse [facility] Conversion Trade Specialist Cerner at 12/10/2022 6:26 PM CDT documented in this encounter Plan of Treatment Not on file documented as of this encounter Visit Diagnoses Not on filedocumented in this encounter Care Teams Marketing Technologist Relationship Specialty Start Date End Date Igor Meyers MD [address] [place] [address] PCP - General Family Medicine 11/23/22 08/22/23 Provider, Not In System, CHRISTIAN SALAZAR PCP - General 08/23/23 08/27/24 [facility] Connection, Find-A-Doc [facility] [place] [address] PCP - General 08/28/24 11/06/24 [facility] Connection, [facility]Doc [facility] [place] [address] PCP - General 11/07/24 02/22/25 [facility], Provider Not In The System, [place] [address] PCP - General 02/23/25 06/26/25 [facility] Connection, Find[facility]Doc [facility] [place] [address] PCP - General 06/27/25 documented as of this encounter
--- OUTSIDE RECORDS SUMMARY | 2025-08-12 20:14 | XMS_ITS | Encounter Summary ---
Author Organization Healthcare Address [address] [place] [address] Care Team Providers Care Yacht Master Name Role Phone Arlene Spears Unavailable [phone] Timbo Mcdaniel MD Unavailable [phone] Igor Meyers MD Primary Care Provider [phone] Encounter Details Date Type Department Care Team (Late st Contact Info) Description 01/21/2025 Lab Requisition [facility] [address] [place] [address] Gustabo Devries MD [address] [facility] [address] [place] [id number] Encounter for general adult medical examination without [...] often do you attend chur ch or religion services? Never 11/18/2024 Do you belong to any clubs o r organizations such as anabaptism groups, unions, fraternal or athletic groups, or [...] medical care, and heating? Very hard 11/18/2024 [facility] - Occupational Stress [...] place to sleep or slept in a nursing home (including now)? No 11/06/2023 Housing Stability Vital Sign Answer Anupam e Recorded In the last 12 months, was t here a time when you were not able to pay the mortgage or rent on time? Yes 01/12/2025 In the past 12 months, how m any times have you moved where you were living? 0 01/12/2025 At any time in the past 12 m [facility], were you homeless or living in a nursing home (including now)? No 01/12/2025 Safety and Environment [...] drink first t vic in the morning (EYE-SOLDERER ASSEMBLER) to steady your nerves or to get [...] as of this encounter Functional Status * Backup Resp Rate (Set) Answer Date of Assessment Author 14 01/21/2025 6:21 PM EDT Interface , Device In * Question Answer Date of Assessment Author Precautions Fall risk 01/24/2025 4:00 PM EDT Faviola Quintanilla RN * Question Answer Date of Assessment Author Precautions Fall risk 01/24/2025 4:00 PM EDT Faviola Quintanilla RN * Calculated C-SSRS Risk Score (Lifetime/Recent) Answer Date of Assessment Author No Risk Indicated 01/24/2025 8:00 AM EDT Faviola Michaels RN * Question Answer Date of Assessment Author 1. Wish to be (Past 1 Month) No 025 8:00 AM EDT Faviola Michaels, DENZEL 2. Non-Specific Active Suici christian Thoughts (Past 1 Month) No 01/24/2025 8:00 AM EDT Shankar Michaels RN 6. Suicidal Behavior (Lifetime) No 8:00 AM EDT Faviola Michaels, DENZEL documented as of this encounter Mental Status * Backup Resp Rate (Set) Answer Entry Date Author 14 01/21/2025 6:21 PM EDT Interface , Device In * Question Answer Entry Date Author Precautions Fall risk 01/24/2025 4:00 PM EDT Faviola Quintanilla RN documented in this encounter Plan of Treatment Not on file documented as of this encounter Procedures Procedure Name Priority Date/Time Associated Diagnosis Comments MULTI DRUG RESISTANCE TEST Routine 01/21/2025 9:30 AM EDT Encounter for general adult medical examination without abnormal findings documented in this encounter Results * Multi Drug Resistance Test (01/21/2025 9:30 AM EDT) Culture No growth at day 1 01/22/2025 2:43 PM EDT [facility] Swab (Nares and Karishma Rectal) 01/21/2025 9:30 AM EDT 01/21/2025 1:42 PM EDT Narrative [facility] - 01/22/2025 2:43 PM EDT This test was developed and its performance characteristics determined by the [facility]. Although the media is FDA-approved, it is not FDA-approved for all specimen types submitted. The FDA has determined that such clearance or approval is not necessary. This test is used for surveillance purposes. It should not be regarded as investigational or for research. The [facility] is certified under the Clinical Laboratory Improvement Amendments of 1988 (CLIA-88) as qualified to perform high complexity clinical laboratory testing. Gustabo Devries MD LAB MICROBIOLOGY - GEN ERAL ORDERABLES Final Result [facility] [address] [place] [id number] documented in this encounter Visit Diagnoses Diagnosis Encounter for general adult medical examination without abnormal findings documented in this encounter Additional Health Concerns Assessment Noted Time A fall risk assessment has been complete d for the patient 12/06/2023 10:57 AM EDT A Body Mass Index follow-up plan has been documented for the patient 09/17/2024 9:34 AM EST documented as of this encounter Care Teams Yacht Master Relationship Specialty Start Date End Date Igor Meyers MD [address] [place] [address] PCP - General 07/09/23 Arlene Spears PA [address] [place] [address] Physician Completions Engineer Neurosurgery 02/14/21 Timbo Mcdaniel MD [address] [place] [address] Surgeon Neurosurgery 02/18/21 documented as of this encounter
--- OUTSIDE RECORDS SUMMARY | 2025-08-12 20:14 | XMS_ITS | Encounter Summary ---
Author Organization [employer] ([place], [place], [place], [place], [place]) Address [address] [place] [address] Care Team Providers Care Marketing Strategist Name Role Phone Igor Meyers MD Primary Care Provider [phone] Provider, Not In System COAT BASTER Primary Care Provid er Unavailable [facility] Connection, Find-A-Doc Primary Care Provider [facility] Connection, Find[facility]A-Doc Primary Care Provider [facility], Provider Not In The System Primary Care Provider Unavailable [facility] Connection, Find-A-Doc Primary Care Provider Encounter Details Date Type Department Care Team (Late st Contact Info) Description 11/03/2019 Transcribed Document [facility] [place] Family Medicine [facility] [place] [address] ProviderRufino MD [address] [place] [address] Social History Tobacco Use Types Packs/Day Years Used Date Smoking Tobacco: Never Assessed Comments Unknown Sex and Gender Information Value Date Recorded Sex Assigned at Not on file Legal Sex Female 1:33 PM CDT Gender Identity Not on file Sexual Orientation Not on file documented as of this encounter Miscellaneous Notes * Cerner Conversion Note - Rufino ProviderMD - 11/03/2019 3:24 AM CDT ED Discharge Entered On: 11/03/2019 3:24 EDT Performed On: 11/03/2019 3:24 EDT by Keron Calle Rn Discharge Process Patient Disposition : Admit/Observe Personal Belongings With Patient : Yes Patient Education Completed : Yes Teaching Evaluation : Verbalizes understanding IV Discontinued : Yes Keron Calle Rn - 11/03/2019 3:24 EDT Electronically signed by Alphonse [facility] Conversion An/Sqq 89(V)15 Sonar System Journeyman Cerner at 12/10/2022 6:39 PM CDT documented in this encounter Plan of Treatment Not on file documented as of this encounter Visit Diagnoses Not on filedocumented in this encounter Care Teams Marketing Strategist Relationship Specialty Start Date End Date Igor Meyers MD [address] [place], [place] [id number] PCP - General Family Medicine 11/23/22 08/22/23 Provider, Not In System, CHRISTIAN SALAZAR PCP - General 08/23/23 08/27/24 [facility] Connection, Find[facility]A-Doc [facility] Find-a-Doc [place], [place] [id number] PCP - General 08/28/24 11/06/24 [facility] Connection, Find[facility]A-Doc [facility] Find-a-Doc [place], [place] [id number] PCP - General 11/07/24 02/22/25 [facility], Provider Not In The System, [place] [address] PCP - General 02/23/25 06/26/25 [facility] Connection, Find-A-Doc [facility] Find-a-Doc [place], [place] [address] PCP - General 06/27/25 documented as of this encounter
--- OUTSIDE RECORDS SUMMARY | 2025-08-12 20:14 | XMS_ITS | Encounter Summary ---
Author Organization [employer] ([place], [place], [place], [place], [place]) Address [address] [place] [address] Care Team Providers Care Ramp Lead Name Role Phone Igor Meyers MD Primary Care Provider [phone] Provider, Not In System SPRAY II PAINTER Primary Care Provid er Unavailable [facility] Connection, Find-A-Doc Primary Care Provider [facility] Connection, Find-A-Doc Primary Care Provider [facility], Provider Not In The System Primary Care Provider Unavailable [facility] Connection, Find-A-Doc Primary Care Provider Encounter Details Date Type Department Care Team (Late st Contact Info) Description 11/03/2019 Transcribed Document [facility] Family Medicine [address] [place] [address] ProviderRufino MD [address] [place] [address] Social History Tobacco Use Types Packs/Day Years Used Date Smoking Tobacco: Never Assessed Comments Unknown Sex and Gender Information Value Date Recorded Sex Assigned at Not on file Legal Sex Female 1:33 PM CDT Gender Identity Not on file Sexual Orientation Not on file documented as of this encounter Miscellaneous Notes * Cerner Conversion Note - Rufino ProviderMD - 11/03/2019 3:04 AM CDT Electronically signed by Alphonse [facility] Conversion Facilities Maintenance Technician Cerner at 12/10/2022 6:47 PM CDT documented in this encounter Plan of Treatment Not on file documented as of this encounter Visit Diagnoses Not on filedocumented in this encounter Care Teams Ramp Lead Relationship Specialty Start Date End Date Igor Meyers MD [address] [place] [address] VINNY Jasso [id number] PCP - General Family Medicine 11/23/22 08/22/23 Provider, Not In System, CHRISTIAN SALAZAR PCP - General 08/23/23 08/27/24 [facility] Connection, Find-A-Doc [facility] Find-a-Doc [place], [place] [id number] PCP - General 08/28/24 11/06/24 [facility] Connection, [facility]Doc [facility] [place] [address] PCP - General 11/07/24 02/22/25 [facility], Provider Not In The System, [place] [address] PCP - General 02/23/25 06/26/25 [facility] Connection, Find-A-Doc [facility] Find-a-Doc [place], [place] [address] PCP - General 06/27/25 documented as of this encounter
--- OUTSIDE RECORDS SUMMARY | 2025-08-12 20:14 | XMS_ITS | Encounter Summary ---
Author Organization Healthcare Address [address] [place] [address] Care Team Providers Care Naval [employer] Coxswain Name Role Phone Leobardo Jones Primary Care Provider [phone] Arlene Spears Unavailable [phone] Timbo Mcdaniel MD Unavailable [phone] Igor Meyers MD Primary Care Provider [phone] Encounter Details Date Type Department Care Team (Late st Contact Info) Description 05/03/2021 Lab Requisition [facility] [address] [place] [address] Will Argueta MD [address] [facility] 7th [facility] [address] [place] [address] Encounter for general adult medical [...] have Coronavirus / COVID-19? No / Unsure 04/29/2021 1:13 PM EDT documented as of this encounter Functional Status documented as of this encounter Mental Status * Question Answer Entry Date Author Precautions Fall risk 05/06/2021 10:00 PM EDT Fost er, Faviola K, RN documented in this encounter Plan of Treatment Not on file documented as of this encounter Procedures Procedure Name Priority Date/Time Associated Diagnosis Comments MULTI DRUG RESISTANCE TEST Routine 05/03/2021 10:10 AM EDT Encounter for general adult medical examination without abnormal findings documented in this encounter Results * Multi Drug Resistance Test (05/03/2021 10:10 AM EDT) Culture No Multi Drug Resistant Organisms Isolated 05/05/2021 2:07 PM EDT [facility] Swab (Nares and Karishma Rectal) 05/03/2021 10:10 AM EDT 05/03/2021 10:58 AM EDT Will Jorge MD LAB MICROBIOLOGY - GENERAL ORDERABLES Final Result [facility] [address] [place] [address] documented in this encounter Visit Diagnoses Diagnosis Encounter for general adult medical examination without abnormal findings documented in this encounter Additional Health Concerns Infection Onset Date Last Indicated Resolved Time Meningitis Rule-Out 05/03/2021 05/03/2021 05/03/20 21 7:44 PM EDT Meningitis Rule-Out 06/01/2021 06/01/2021 06/01/20 21 2:55 PM EDT Meningitis Rule-Out 06/04/2021 06/04/2021 06/04/20 21 6:39 PM EDT Meningitis Rule-Out 07/16/2021 07/16/2021 07/16/20 21 6:13 [...] documented as of this encounter Care Teams [employer] Coxswain Relationship Specialty Start Date End Date Leobardo Jones [facility] [address] [place] [address] PCP - General 01/07/21 07/08/23 Igor Meyers MD [address] [place] [address] PCP - General 07/09/23 Arlene Spears PA [address] [place] [id number] Physician Postdoctoral Research Associate Neurosurgery 02/14/21 Timbo Mcdaniel MD [address] [place] [address] Surgeon Neurosurgery 02/18/21 documented as of this encounter
--- OUTSIDE RECORDS SUMMARY | 2025-08-12 20:14 | XMS_ITS | Encounter Summary ---
Author Organization [employer] ([place], [place], [place], [place], [place]) Address [address] [place] [address] Care Team Providers Care Laborer Driver Name Role Phone Igor Meyers MD Primary Care Provider [phone] Provider, Not In System WILLOWER Primary Care Provid er Unavailable [facility] Connection, Find-A-Doc Primary Care Provider [facility] Connection, Find-A-Doc Primary Care Provider [facility], Provider Not In The System Primary Care Provider Unavailable [facility] Connection, Find-A-Doc Primary Care Provider Encounter Details Date Type Department Care Team (Late st Contact Info) Description 08/11/2019 Transcribed Document [facility] Family [place] [facility] [place] [address] ProviderRufino MD [address] [place] [address] Social History Tobacco Use Types Packs/Day Years Used Date Smoking Tobacco: Never Assessed Comments Unknown Sex and Gender Information Value Date Recorded Sex Assigned at Not on file Legal Sex Female 1:33 PM CDT Gender Identity Not on file Sexual Orientation Not on file documented as of this encounter Miscellaneous Notes * Cerner Conversion Note - Rufino ProviderMD - 08/11/2019 5:23 PM CHLORINE CELL TENDER ED Assessment Entered On: 08/11/2019 18:30 EST Performed On: 08/11/2019 17:45 EST by Amber Mccann, SPECIAL CLIENT BUS DRIVER Quick Look Assessment Level of Consciousness : Alert Affect/Behavior : Calm, Cooperative Orientation : Oriented x 4 Skin Color : Other: [place] Skin Temperature : Warm Skin Description : Dry Amber Mccann, RN - 08/11/2019 18:27 EST ED General-Functional Assess Preferred Communication Mode : Verbal Communication Barrier : None Primary Language : Kuwaiti Any Spiritual/Cultural Needs or Requests : No Currently in Unsafe Situation : No Amber Mccann RN - 08/11/2019 18:27 EST Social Habits Smoking Status : Never (less than 100 in lifetime; none in last 30 days) Smokeless Tobacco Status : Never Desires Tobacco Cessation Calc : 0 Amebr Mccann RN - 08/11/2019 18:27 EST Social History (As Of: 08/11/2019 18:30:56 EST) Tobacco: Smoking Status Never smoker. (Last [...] Cardiovascular Assessment WDL : WDL with exceptions Detailed Cardiovascular Assessment : Open Amber Mccann RN - 08/11/2019 18:27 EST Cardiovascular ASMT, Detailed Cardiac Rhythm : Normal sinus rhythm Cardiac Rhythm Comment : Pt c/o chest pain that started 45 min DIRECTOR OF SAFETY. Pt states pain radiates down left arm. Amber Mccann RN - 08/11/2019 18:27 EST Electronically signed by Alphonse [facility] Conversion Parachute Harness Rigger Cerner at 12/10/2022 6:39 PM CDT documented in this encounter Plan of Treatment Not on file documented as of this encounter Visit Diagnoses Not on filedocumented in this encounter Care Teams Laborer Driver Relationship Specialty Start Date End Date Igor Meyers MD [address] [place] [address] PCP - General Family Medicine 11/23/22 08/22/23 Provider, Not In System, CHRISTIAN SALAZAR PCP - General 08/23/23 08/27/24 [facility] Connection, [facility]Doc [facility] [place] [address] PCP - General 08/28/24 11/06/24 [facility] Connection, [facility] [place] [address] PCP - General 11/07/24 02/22/25 [facility], Provider Not In The System, [place] [address] PCP - General 02/23/25 06/26/25 [facility] Connection, [facility] [place] [address] PCP - General 06/27/25 documented as of this encounter
--- OUTSIDE RECORDS SUMMARY | 2025-08-12 20:14 | XMS_ITS | Encounter Summary ---
Author Organization [employer] ([place], [place], [place], [place], [place]) Address [address] [place] [address] Care Team Providers Care Bd Special Education Teacher Name Role Phone Igor Meyers MD Primary Care Provider [phone] Provider, Not In System EXPANDED FUNCTION DENTAL ASSISTANT Primary Care Provid er Unavailable [facility] Connection, Find-A-Doc Primary Care Provider [facility] Connection, Find-A-Doc Primary Care Provider [facility], Provider Not In The System Primary Care Provider Unavailable [facility] Connection, Find-A-Doc Primary Care Provider Encounter Details Date Type Department Care Team (Late st Contact Info) Description 11/02/2019 Transcribed Document [facility] [place] [facility] [place] [address] ProviderRufino MD [address] [place] [address] Social History Tobacco Use Types Packs/Day Years Used Date Smoking Tobacco: Never Assessed Comments Unknown Sex and Gender Information Value Date Recorded Sex Assigned at Not on file Legal Sex Female 1:33 PM CDT Gender Identity Not on file Sexual Orientation Not on file documented as of this encounter Miscellaneous Notes * Cerner Conversion Note - Rufino ProviderMD - 11/02/2019 10:33 PM CDT ED Assessment Entered On: 11/03/2019 0:52 EDT Performed On: 11/03/2019 0:50 EDT by Keron Calle, dobby loom fixer Quick Look Assessment Level of Consciousness : Alert, Awake Affect/Behavior : Appropriate, Calm, Cooperative Keron Calle Rn - 11/03/2019 0:50 EDT ED General-Functional Assess Information Obtained From : Patient Preferred Communication Mode : Verbal Communication Barrier : None Primary Language : Israeli Any Spiritual/Cultural Needs or Requests : No Currently in Unsafe Situation : No Keron Calle Rn - 11/03/2019 0:50 EDT Social Habits Smoking Status : Never (less than 100 in lifetime; none in last 30 days) Smokeless Tobacco Status : Never Desires Tobacco Cessation Calc : 0 Keron Calle Rn - 11/03/2019 0:50 EDT Social History (As Of: 11/03/2019 00:52:07 EDT) Tobacco: Smoking Status Never smoker. (Last [...] with exceptions Cardiovascular Symptoms : Chest pain with activity Heart Rhythm : Regular Nail Bed Color : [place] Chest Pain : Yes Edema Present : Lower extremity Clubbing Present : No Heart Sounds : S1/S2, Distant Keron Calle Rn - 11/03/2019 0:50 EDT Electronically signed by Alphonse [facility] Conversion Fire Protection Specialist Cerner at 12/10/2022 6:32 PM CDT documented in this encounter Plan of Treatment Not on file documented as of this encounter Visit Diagnoses Not on filedocumented in this encounter Care Teams Bd Special Education Teacher Relationship Specialty Start Date End Date Igor Meyers MD [address] [place] [address] PCP - General Family Medicine 11/23/22 08/22/23 Provider, Not In System, CHRISTIAN SALAZAR PCP - General 08/23/23 08/27/24 [facility] Adan, Find-A-Doc [facility] [place] [address] PCP - General 08/28/24 11/06/24 [facility] Connection, Find[facility]Doc [facility] Find-a-Doc [place], [place] [address] PCP - General 11/07/24 02/22/25 [facility], Provider Not In The System, [address] [place] [address] PCP - General 02/23/25 06/26/25 [facility] Connection, Find-A-Doc [facility] Find-a-Doc [place], [place] [address] PCP - General 06/27/25 documented as of this encounter
--- OUTSIDE RECORDS SUMMARY | 2025-08-12 20:14 | XMS_ITS | Encounter Summary ---
Author Organization [employer] ([place], [place], [place], [place], [place]) Address [address] [place] [address] Care Team Providers Care Candy Cutter Hand Name Role Phone Igor Meyers MD Primary Care Provider [phone] Provider, Not In System KICK BOXER Primary Care Provid er Unavailable [facility] Connection, Find-A-Doc Primary Care Provider [facility] Connection, Find-A-Doc Primary Care Provider [facility], Provider Not In The System Primary Care Provider Unavailable [facility] Connection, Find-A-Doc Primary Care Provider Encounter Details Date Type Department Care Team (Late st Contact Info) Description 03/19/2020 Transcribed Document [facility] [place] [address] ProviderRufino MD [address] [place] [address] Social History Tobacco Use Types [...] ProviderMD - 03/19/2020 10:36 AM CDT ED Triage Entered On: 03/19/2020 10:46 EDT Performed On: 03/19/2020 10:44 EDT by JAZMÍN TYLER ED Triage Across the Room Chief Complaint : C/o CP and sob x 30 min, took 2 Nitro w/o rerlief Triage Date/Time : 03/19/2020 10:44 EDT RAINS, JAZMÍN - 03/19/2020 10:44 EDT DCP GENERIC CODE Tracking Acuity : 2 - Emergent Tracking Group : [facility] LASHON TYLER03/19/2020 10:44 EDT Mode of Arrival : Ambulatory Transported to ED by : Private vehicle To Room Via : Ambulate Accompanied By : Unaccompanied ED Vital Signs : Document Height & Weight : Document ED Allergies : Document ED Reason for Visit : Document Tetanus Immunization : Greater than 5 years IGNACIO JAZMÍN - 03/19/2020 10:44 EDT Infectious Disease History Has the patient ever been tested for COVID-19? : No, Patient stated Does patient have symptoms of COVID-19? : No COVID19 Screening : No Experiencing Infectious Disease Symptoms : No symptoms Physical contact outside [place] in the last 30 days : No Infectious Disease History : Chicken pox/Shingles, Herpes, Measles, Mumps Tuberculosis Symptoms : None 03/19/2020 10:44 EDT Vital Signs ED Temperature Source : Temporal artery scanning Temperature Mode : Fahrenheit Temperature, Fahrenheit : 98.6 Deg F Clinical Temperature, C : 37 Deg C Peripheral Pulse Rate : 79 bpm Respiratory Rate : 18 Breaths/Min Systolic Blood Pressure : 113 mmHg Diastolic Blood Pressure : 98 mmHg (HI) Oxygen Saturation : 98 % JAYSON JAZMÍN - 03/19/2020 10:44 EDT Allergy (As Of: 03/19/2020 10:46:47 EDT) Allergies (Active) sulfADIAZINE Estimated Onset Date: Unspecified ; Reactions: itching, C/O: a swelling ; Created By: Barb Barrientos RN; Reaction Status: Active ; Category: Drug ; Substance: sulfADIAZINE ; Type: Allergy ; Severity: Severe ; Updated By: Barb Barrientos RN; Reviewed Date: 12/06/2019 4:45 EDT sulfonamides Estimated Onset Date: Unspecified ; Reactions: Rash, Itching ; Created By: Diana Michel, Pharmacist-Resident; Reaction Status: Active ; Category: Drug ; Substance: sulfonamides ; Type: Allergy ; Severity: Moderate ; Updated By: Diana Michel, Pharmacist-Resident; Source: Patient ; Reviewed Date: 11/09/2019 22:32 EDT Diagnosis Control ED (As Of: 03/19/2020 10:46:47 EDT) Problems(Active) Apnea, sleep (SNOMED CT :645521112 ) Name of Problem: Apnea, sleep ; Recorder: Sheryl Burnett RN; Confirmation: Confirmed ; Classification: Patient Stated ; Code: [id number] ; Contributor System: [employer] ; Last Updated: 08/12/2014 20:25 EST ; Life Cycle Date: 08/12/2014 ; Life Cycle Status: Active ; Vocabulary: SNOMED CT Chronic CHF (SNOMED CT :459602700 ) Name of Problem: Chronic CHF ; Recorder: Sheryl Burnett RN; Confirmation: Confirmed ; Classification: Patient Stated ; Code: [id number] ; Contributor System: [employer] ; Last Updated: 08/12/2014 20:25 EST ; Life Cycle Date: 08/12/2014 ; Life Cycle Status: Active ; Vocabulary: SNOMED CT COPD (chronic obstructive pulmonary disease) with emphysema (SNOMED CT :267800494 ) Name of Problem: COPD (chronic obstructive pulmonary disease) with emphysema ; Recorder: Sheryl Burnett RN; Confirmation: Confirmed ; Classification: Patient Stated ; Code: [id number] ; Contributor System: [employer] ; Last Updated: 08/12/2014 20:25 EST ; Life Cycle Date: 08/12/2014 ; Life Cycle Status: Active ; Vocabulary: SNOMED CT Diabetes (SNOMED CT :384043845 ) Name of Problem: Diabetes ; Recorder: Sheryl Burnett RN; Confirmation: Confirmed ; Classification: Patient Stated ; Code: [id number] ; Contributor System: [employer] ; Last Updated: 08/12/2014 20:24 EST ; Life Cycle Date: 08/12/2014 ; Life Cycle Status: Active ; Vocabulary: SNOMED CT Genital herpes (SNOMED CT :50532571 ) Name of Problem: Genital herpes ; Recorder: Sheryl Burnett RN; Confirmation: Confirmed ; Classification: Patient Stated ; Code: 42313352 ; Contributor System: [employer] ; Last Updated: 08/12/2014 20:25 EST ; Life Cycle Date: 08/12/2014 ; Life Cycle Status: Active ; Vocabulary: SNOMED CT History of obstructive sleep apnea (IMO :90927671 ) Name of Problem: History of obstructive sleep apnea ; Recorder: SYSTEM, SYSTEM; Confirmation: Confirmed ; Classification: Medical ; Code: 72627531 ; Last Updated: 03/07/2018 10:59 EDT ; Life Cycle Date: 03/07/2018 ; Life Cycle Status: Active ; Vocabulary: IMO HTN (hypertension) (SNOMED CT :5117745973 ) Name of Problem: HTN (hypertension) ; Recorder: Sheryl Burnett RN; Confirmation: Confirmed ; Classification: Patient Stated ; Code: [id number] ; Contributor System: [employer] ; Last Updated: 08/12/2014 20:24 EST ; Life Cycle Date: 08/12/2014 ; Life Cycle Status: Active ; Vocabulary: SNOMED CT Hydrocephalus (SNOMED CT :707436611 ) Name of Problem: Hydrocephalus ; Recorder: Sheryl Burnett RN; Confirmation: Confirmed ; Classification: Patient Stated ; Code: 731976518 ; Contributor System: [employer] ; Last Updated: 08/12/2014 20:24 EST ; Life Cycle Date: 08/12/2014 ; Life Cycle Status: Active ; Vocabulary: SNOMED CT Hyperlipemia (SNOMED CT :42668770 ) Name of Problem: Hyperlipemia ; Recorder: Sheryl Burnett RN; Confirmation: Confirmed ; Classification: Patient Stated ; Code: 77976989 ; Contributor System: [employer] ; Last Updated: 08/12/2014 20:24 EST ; Life Cycle Date: 08/12/2014 ; Life Cycle Status: Active ; Vocabulary: SNOMED CT Myocardial infarction (SNOMED CT :39056703 ) Name of Problem: Myocardial infarction ; Recorder: Sheryl Burnett RN; Confirmation: Confirmed ; Classification: Patient Stated ; Code: 86817282 ; Contributor System: [employer] ; Last Updated: 08/12/2014 20:25 EST ; Life Cycle Date: 08/12/2014 ; Life Cycle Status: Active ; Vocabulary: SNOMED CT Diagnoses(Active) Chest pain Date: 03/19/2020 ; Diagnosis Type: Reason For Visit ; Confirmation: Complaint of ; Clinical Dx: Chest pain ; Classification: Medical ; Clinical Service: Emergency medicine ; Code: PNED ; Probability: 0 ; Diagnosis Code: [id number] ED Height and Weight Height Source : Stated Height Entry Format : [place] Height, Feet : 4 ft(Converted to: 122 cm, 48 Inch) Height, Inches : 11 Inch(Converted to: 0 ft 11 Inch, 27.94 cm) Clinical Height : 149.86 cm Weight Source, ED : Critical estimated dosing weight Weight Entry Format : [place] Weight, Pounds : 180 lb Clinical Dosing Weight : 81.82 kg Body Surface Area (BSA) : 1.76 m2 Body Mass Index : 36.4 kg/m2 (HI) [place] Body Weight (IBW) : 42.87 kg JAZMÍN TYLER Yadira 03/19/2020 10:44 EDT [address] by [facility] Conversion Analytical Research Program Manager Cerner at 12/10/2022 6:28 PM CDT documented in this encounter Plan of Treatment Not on file documented as of this encounter Visit Diagnoses Not on filedocumented in this encounter Care Teams Candy Cutter Hand Relationship Specialty Start Date End Date Igor Meyers MD [address] [place] [address] PCP - General Family Medicine 11/23/22 08/22/23 Provider, Not In System, CHRISTIAN SALAZAR PCP - General 08/23/23 08/27/24 [facility] Connection, Find-A-Doc [facility] [place] [address] PCP - General 08/28/24 11/06/24 [facility], Find-A-Doc [facility] Find-a-Doc [place], [place] [address] PCP - General 11/07/24 02/22/25 [facility], Provider Not In The System, [place] [address] PCP - General 02/23/25 06/26/25 [facility] Connection, Find-A-Doc [facility] Find-a-Doc [place], [place] [id number] PCP - General 06/27/25 documented as of this encounter
--- OUTSIDE RECORDS SUMMARY | 2025-08-12 20:14 | XMS_ITS | Encounter Summary ---
Author Organization [employer] ([place], [place], [place], [place], [place]) Address [address] [place] [address] Care Team Providers Care Rotor Plate Washer Name Role Phone Igor Meyers MD Primary Care Provider [phone] Provider, Not In System STONE GRADER Primary Care Provid er Unavailable [facility] Connection, Find-A-Doc Primary Care Provider [facility] Connection, Find-A-Doc Primary Care Provider [facility], Provider Not In The System Primary Care Provider Unavailable [facility] Connection, Find-A-Doc Primary Care Provider Encounter Details Date Type Department Care Team (Late st Contact Info) Description 04/13/2020 Transcribed Document [facility] [place] [address] ProviderRufino MD [address] [place] [address] Social History Tobacco Use Types Packs/Day Years Used Date Smoking Tobacco: Never Assessed Comments Unknown Sex and Gender Information Value Date Recorded Sex Assigned at Not on file Legal Sex Female 1:33 PM CDT Gender Identity Not on file Sexual Orientation Not on file documented as of this encounter Miscellaneous Notes * Cerner Conversion Note - Historical ProviderMD - 04/13/2020 8:40 AM CDT Therapy Screen, OT Entered On: 04/13/2020 11:04 EDT Performed On: 04/13/2020 8:40 EDT by HEATHER MICHELE OTR/L Therapy Screen, OT Medical Chart Reviewed : Yes Person Providing Information : Other: PT Screen Completed : Yes Recommendations for Evaluation OT : Do not recommend Occupational Therapy evaluation Therapy Screen Findings, OT : Patient at functional baseline Recommendations Upon Discharge : None Additional Therapy Screen Comment : PT reports pt is I with ADLs, functional mobility, and has no OT/therapy needs at this time. No further skilled OT indicated. HEATHER MICHELE, OTR/L - 04/13/2020 11:02 EDT Electronically signed by [facility] Conversion Ice Cream Shop Associate Cerner at 12/10/2022 6:31 PM CDT documented in this encounter Plan of Treatment Not on file documented as of this encounter Visit Diagnoses Not on filedocumented in this encounter Care Teams Rotor Plate Washer Relationship Specialty Start Date End Date Igor Meyers MD [address] [place] [address] PCP - General Family Medicine 11/23/22 08/22/23 Provider, Not In System, CHRISTIAN SALAZAR PCP - General 08/23/23 08/27/24 [facility] Connection, Find-A-Doc [facility] [place] [address] PCP - General 08/28/24 11/06/24 [facility] Connection, Find-A-Doc [facility] [place] [address] PCP - General 11/07/24 02/22/25 [facility], Provider Not In The System, [place] [address] PCP - General 02/23/25 06/26/25 [facility] Connection, Find[facility]A-Doc [facility] [place] [address] PCP - General 06/27/25 documented as of this encounter
--- OUTSIDE RECORDS SUMMARY | 2025-08-12 20:14 | XMS_ITS | Encounter Summary ---
Author Organization [employer] ([place], [place], [place], [place], [place]) Address [address] [place] [address] Care Team Providers Care Ski Instructor Name Role Phone Igor Meyers MD Primary Care Provider [phone] Provider, Not In System SILK BRUSHER Primary Care Provid er Unavailable [facility] Connection, Find-A-Doc Primary Care Provider [facility] Connection, Find-A-Doc Primary Care Provider [facility], Provider Not In The System Primary Care Provider Unavailable [facility] Connection, Find-A-Doc Primary Care Provider Encounter Details Date Type Department Care Team (Late st Contact Info) Description 10/02/2019 Transcribed Document [facility] [place] [facility] [place] [address] ProviderRufino MD [address] [place] [address] Social History Tobacco Use Types Packs/Day Years Used Date Smoking Tobacco: Never Assessed Comments Unknown Sex and Gender Information Value Date Recorded Sex Assigned at Not on file Legal Sex Female 1:33 PM CDT Gender Identity Not on file Sexual Orientation Not on file documented as of this encounter Miscellaneous Notes * Cerner Conversion Note - Historical ProviderMD - 10/02/2019 12:27 PM MANUFACTURING ENGINEER [place] Suicide Severity Rating Scale (C-SSRS) Entered On: 10/02/2019 12:54 EST Performed On: 10/02/2019 12:54 EST by Akshat Mercedes, RN [place] Suicide Severity Rating Scale (C-SSRS) CSSRS Past Month Wish to be : No CSSRS Past Month Suicidal Thoughts : No CSSRS Lifetime Suicide Behavior : No Suicide Severity Rating Score : 0 Suicide Severity Rating : No Additional Care Required at this time Akshat Mercedes RN - 10/02/2019 12:54 EST Electronically signed by [facility] Conversion Machine Stapler Cerner at 12/10/2022 6:28 PM CDT documented in this encounter Plan of Treatment Not on file documented as of this encounter Visit Diagnoses Not on filedocumented in this encounter Care Teams Ski Instructor Relationship Specialty Start Date End Date Igor Meyers MD [address] [place] [address] PCP - General Family Medicine 11/23/22 08/22/23 Provider, Not In System, CHRISTIAN SALAZAR PCP - General 08/23/23 08/27/24 [facility] Connection, Find-A-Doc [facility] [place] [address] PCP - General 08/28/24 11/06/24 [facility] Connection, Find[facility]A-Doc [facility] [place] [address] PCP - General 11/07/24 02/22/25 [facility], Provider Not In The System, [place] [address] PCP - General 02/23/25 06/26/25 [facility] Connection, Find-A-Doc [facility] [place] [address] PCP - General 06/27/25 documented as of this encounter
--- OUTSIDE RECORDS SUMMARY | 2025-08-12 20:14 | XMS_ITS | Encounter Summary ---
Author Organization [employer] ([place], [place], [place], [place], [place]) Address [address] [place] [address] Care Team Providers Care Interface Designer Name Role Phone Igor Meyers MD Primary Care Provider [phone] Provider, Not In System PRISM MEASURER Primary Care Provid er Unavailable [facility] Connection, Find-A-Doc Primary Care Provider [facility], [facility]Doc Primary [facility] Provider [facility], Provider Not In The System Primary Care Provider Unavailable [facility] Connection, Find-A-Doc Primary Care Provider Encounter Details Date Type Department Care Team (Late st Contact Info) Description 10/02/2019 Transcribed Document [facility] [place] Family Medicine [address] [place] [address] ProviderRufino MD [address] [place] [address] Social History Tobacco Use Types Packs/Day Years Used Date Smoking Tobacco: Never Assessed Comments Unknown Sex and Gender Information Value Date Recorded Sex Assigned at Not on file Legal Sex Female 1:33 PM CDT Gender Identity Not on file Sexual Orientation Not on file documented as of this encounter Miscellaneous Notes * Cerner Conversion Note - Rufino ProviderMD - 10/02/2019 4:59 PM EXCHANGE ENGINEER Electronically signed by [facility] Conversion Speaker Mounter Cerner at 12/10/2022 6:27 PM CDT documented in this encounter Plan of Treatment Not on file documented as of this encounter Visit Diagnoses Not on filedocumented in this encounter Care Teams Interface Designer Relationship Specialty Start Date End Date Igor Meyers MD [address] [place], [place] [address] [address] PCP - General Family Medicine 11/23/22 08/22/23 Provider, Not In System, CHRISTIAN SALAZAR PCP - General 08/23/23 08/27/24 [facility] Connection, [facility]A-Doc [facility] Find-a-Doc [place], [place] [id number] PCP - General 08/28/24 11/06/24 [facility] Connection, Find[facility]Doc [facility] [place] [address] PCP - General 11/07/24 02/22/25 [facility], Provider Not In The System, [place] [address] PCP - General 02/23/25 06/26/25 [facility] Connection, Find[facility]Doc [facility] Find-a-Doc [place], [place] [id number] PCP - General 06/27/25 documented as of this encounter
--- OUTSIDE RECORDS SUMMARY | 2025-08-12 20:14 | XMS_ITS | Encounter Summary ---
Author Organization [employer] ([place], [place], [place], [place], [place]) Address [address] [place] [address] Care Team Providers Care Big Data Admin Name Role Phone Igor Meyers MD Primary Care Provider [phone] Provider, Not In System FLUE DUST LABORER Primary Care Provid er Unavailable [facility] Connection, Find-A-Doc Primary Care Provider [facility] Connection, Find-A-Doc Primary Care Provider [facility], Provider Not In The System Primary Care Provider Unavailable [facility] Connection, Find-A-Doc Primary Care Provider Encounter Details Date Type Department Care Team (Late st Contact Info) Description 11/02/2019 Transcribed Document [facility] [place] [facility] [place] [address] ProviderRufino MD [address] [place] [address] Social History Tobacco Use Types Packs/Day Years Used Date Smoking Tobacco: Never Assessed Comments Unknown Sex and Gender Information Value Date Recorded Sex Assigned at Not on file Legal Sex Female 1:33 PM CDT Gender Identity Not on file Sexual Orientation Not on file documented as of this encounter Miscellaneous Notes * Cerner Conversion Note - Historical ProviderMD - 11/02/2019 10:33 PM CDT [place] Suicide Severity Rating Scale (C-SSRS) Entered On: 11/03/2019 0:50 EDT Performed On: 11/03/2019 0:50 EDT by Keron Calle Rn [place] Suicide Severity Rating Scale (C-SSRS) CSSRS Past Month Wish to be : No CSSRS Past Month Suicidal Thoughts : No CSSRS Lifetime Suicide Behavior : No Suicide Severity Rating Score : 0 Suicide Severity Rating : No Additional Care Required at this time Keron Calle Rn - 11/03/2019 0:50 EDT Electronically signed by Alphonse [facility] Conversion Environmental Officer Cerner at 12/10/2022 6:41 PM CDT documented in this encounter Plan of Treatment Not on file documented as of this encounter Visit Diagnoses Not on filedocumented in this encounter Care Teams Big Data Admin Relationship Specialty Start Date End Date Igor Meyers MD [address] [place] [address] PCP - General Family Medicine 11/23/22 08/22/23 Provider, Not In System, CHRISTIAN SALAZAR PCP - General 08/23/23 08/27/24 [facility] Connection, Find-A-Doc [facility] Find-a-Doc [place], [place] [id number] PCP - General 08/28/24 11/06/24 [facility] Connection, Find-A-Doc [facility] Find-a-Doc [place], [place] [id number] PCP - General 11/07/24 02/22/25 [facility], Provider Not In The System, [place] [address] PCP - General 02/23/25 06/26/25 [facility] Connection, Find-A-Doc [facility] [place] [address] PCP - General 06/27/25 documented as of this encounter
--- OUTSIDE RECORDS SUMMARY | 2025-08-12 20:14 | XMS_ITS | Encounter Summary ---
Author Organization [email or web address] ([place], [place], [place], [place], [place]) Address [address] [place] [address] Care Team Providers Care Traction Power Engineer Name Role Phone Igor Meyers MD Primary Care Provider [phone] Provider, Not In System CHIEF DIGITAL MEDIA OFFICER Primary Care Provid er Unavailable [facility] Connection, Find-A-Doc Primary Care Provider [facility] Connection, Find[facility]A-Doc Primary Care Provider [facility], Provider Not In The System Primary Care Provider Unavailable [facility] Connection, Find-A-Doc Primary Care Provider Encounter Details Date Type Department Care Team (Late st Contact Info) Description 08/11/2019 Transcribed Document [facility] [place] Family Medicine [facility] [place] [address] ProviderRufino MD [address] [place] [address] Social History Tobacco Use Types Packs/Day Years Used Date Smoking Tobacco: Never Assessed Comments Unknown Sex and Gender Information Value Date Recorded Sex Assigned at Not on file Legal Sex Female 1:33 PM CDT Gender Identity Not on file Sexual Orientation Not on file documented as of this encounter Miscellaneous Notes * Cerner Conversion Note - Rufino ProviderMD - 08/11/2019 7:48 PM CREDIT CHECKER [address] [address] ROBERTO RANDLE :1960 Visit Time:08/11/2019 Your Visit Summary Your Care Team Primary Provider: RIANA MALIK MD Secondary Provider: Your Diagnosis Chest pain Hyperglycemia Nonspecific chest pain Medical Information You may obtain a [...] When Within 2 to 3 days Comments Return or go to the nearest ER for worsening uncontrolled pain, shortness of breath and or persistent vomiting. Where: [address] [place] [phone] Business (1) Follow Up with JOSHUA PERERA When Within 2 to 3 days Where: [address] [facility] [address] [place] [phone] Business (1) Follow Up with Find a Doc ([facility]) When Within 2 to 3 days Where: [facility] [place] [address] [phone] Business (1) Follow Up with Follow up with primary care provider When Within 2 to 3 days Allergies sulfADIAZINE (itching) sulfonamides (Rash, Itching) Immunizations This Visit No Immunizations Found Medications What How Much When Instructions Next Dose New traMADol (traMADol 50 mg oral tablet) 1 Tablet(s) Oral Every 4 Hours as needed for as needed for pain Duration: 2 Day(s) Printed Prescription The home medications listed [...] This Visit (last charted value for your 08/11/2019 visit) Hematology 08/11/2019 6:14 PM WBC: 10.8 K/uL -- Normal range between ( 3.9 and 10.0 ) RBC: 4.65 Million/uL -- Normal range between ( 3.93 and 5.22 ) Hct: 40.3 % -- Normal range between ( 34.1 and 44.9 ) Hgb: 13.5 Gram/dL -- Normal range between ( 11.2 and 15.7 ) Platelet Count: 242 K/uL -- Normal range between ( 163 and 369 ) MCH: 29.0 pg -- Normal range between ( 25.6 and 32.2 ) MCHC: 33.5 Gram/dL -- Normal range between ( 32.3 and 36.5 ) MCV: 86.7 fL -- Normal range between ( 79.0 and 94.8 ) Slide Review: No RDW: 13.6 % -- Normal range between ( 11.6 and 14.4 ) MPV: 10.5 fL -- Normal range between ( 9.4 and 12.4 ) General Chemistry 08/11/2019 6:14 PM Creatinine Level: 0.62 mg/dL -- Normal range between ( 0.55 and 1.02 ) Sodium Level: 138 mmol/L -- Normal range between ( 136 and 146 ) Potassium Level: 4.8 mmol/L -- Normal range between ( 3.5 and 5.1 ) Chloride Level: 104 mmol/L -- Normal range between ( 102 and 112 ) Carbon Dioxide Level: 27 mmol/L -- Normal range between ( 21 and 32 ) Anion Gap: 12 -- Normal range between ( 9 and 20 ) Bun/Creatinine: 22.6 -- Normal range between ( 8.0 and 20.0 ) Calcium Level: 9.1 mg/dL -- Normal range between ( 8.5 and 10.1 ) eGFR : >60 mL/min/1.73m2 eGFR NonAfrican: >60 mL/min/1.73m2 Glucose Level: 289 mg/dL -- Normal range between ( 74 and 106 ) Blood Urea Nitrogen: 14 mg/dL -- Normal range between ( 7 and 22 ) Cardiac Specific Markers 08/11/2019 6:14 PM Troponin I Ultra: <0.015 ng/mL -- Normal range between ( 0.015 and 0.045 ) ProBNP: 40 pg/mL -- Normal range between ( 0 and 125 ) Education Materials Hyperglycemia Hyperglycemia is when the sugar (glucose) level in your blood is too high. It may not cause symptoms. If you do have symptoms, they may include warning signs, such as: ??? Feeling more thirsty than normal. ??? Hunger. ??? Feeling tired. ??? Needing to pee (urinate) more than normal. ??? Blurry eyesight (vision). You may get other symptoms as it gets worse, such as: ??? Dry mouth. ??? Not being hungry (loss of appetite). ??? Fruity-smelling breath. ??? Weakness. ??? Weight gain or loss that is not planned. Weight loss may be fast. ??? A tingling or numb feeling in your hands or feet. ??? Headache. ??? Skin that does not bounce back quickly when it is lightly pinched and released (poor skin turgor). ??? Pain in your belly (abdomen). ??? Cuts or bruises that heal slowly. High blood sugar can happen to people who do or do not have diabetes. High blood sugar can happen slowly or quickly, and it can be an emergency. Follow these instructions at home: General instructions ??? Take vjgv-gyj-bpeecdf and prescription medicines only as told by your doctor. ??? Do not use products that contain nicotine or tobacco, such as cigarettes and e-cigarettes. If you need help quitting, ask your doctor. ??? Limit alcohol intake to no more than 1 drink per day for non women and 2 drinks per day for men. One drink equals 12 oz of beer, 5 oz of wine, or 1?? oz of hard liquor. ??? Manage stress. If you need help with this, ask your doctor. ??? Keep all follow-up visits as told by your doctor. This is important. Eating and drinking ??? Stay at a healthy weight. ??? Exercise regularly, as told by your doctor. ??? Drink enough fluid, especially when you: ? Exercise. ? Get sick. ? Are in hot temperatures. ??? Eat healthy foods, such as: ? Low-fat (lean) proteins. ? Complex carbs (complex carbohydrates), such as whole wheat bread or brown rice. ? Fresh fruits and vegetables. ? Low-fat dairy products. ? Healthy fats. ??? Drink enough fluid to keep your pee (urine) clear or pale yellow. If you have diabetes: ??? Make sure you know the symptoms of hyperglycemia. ??? Follow your diabetes management plan, as told by your doctor. Make sure you: ? Take insulin and medicines as told. ? Follow your exercise plan. ? Follow your meal plan. Eat on time. Do not skip meals. ? Check your blood sugar as often as told. Make sure to check before and after exercise. If you exercise longer or in a different way than you normally do, check your blood sugar more often. ? Follow your sick day plan whenever you cannot eat or drink normally. Make this plan ahead of time with your doctor. ??? Share your diabetes management plan with people in your workplace, school, and household. ??? Check your urine for ketones when you are ill and as told by your doctor. ??? Carry a card or wear jewelry that says that you have diabetes. Contact a doctor if: ??? Your blood sugar level is higher than 240 mg/dL (13.3 mmol/L) for 2 days in a row. ??? You have problems keeping your blood sugar in your target range. ??? High blood sugar happens often for you. Get help right away if: ??? You have trouble breathing. ??? You have a change in how you think, feel, or act (mental status). ??? You feel sick to your stomach (nauseous), and that feeling does not go away. ??? You cannot stop throwing up (vomiting). These symptoms may be an emergency. Do not wait to see if the symptoms will go away. Get medical help right away. Call your local emergency services (911 in the [place] Do not drive yourself to the hospital. Summary ??? Hyperglycemia is when the sugar (glucose) level in your blood is too high. ??? High blood sugar can happen to people who do or do not have diabetes. ??? Make sure you drink enough fluids, eat healthy foods, and exercise regularly. ??? Contact your doctor if you have problems keeping your blood sugar in your target range. This information is not intended to replace advice given to you by your health care provider. Make sure you discuss any questions you have with your health care provider. Document Released: 06/10/2010 Document Revised: 04/30/2017 Document Reviewed: 04/30/2017 [employer] Interactive Patient Education ?? 2019 [employer] Nonspecific Chest Pain Chest pain can [...] you start to feel better. ??? Take cqyv-eud-xgsrnqc and prescription medicines only as told by [...] 05/23/2006 Document Revised: 05/07/2017 Document Reviewed: 05/07/2017 [employer] Interactive Patient Education ?? 2019 [employer]. Emergency Awareness and Preventative Care STROKE is [...] Assistance with quitting is available by contacting 1-754-JONI-NOW. This is a free resource providing counseling, [...] was given the opportunity to ask questions. Patient/Charge Rn Name: Patient/Charge Rn Signature: Relationship to Patient: Clinician/Hospital Charge Rn Signature: Please Provide a Telephone Number Where You Can Be Reached: Is it Permissible To Leave a Message? Date: documented in this encounter Plan of Treatment Not on file documented as of this encounter Visit Diagnoses Not on filedocumented in this encounter Care Teams Traction Power Engineer Relationship Specialty Start Date End Date Igor Meyers MD [address] [place] [address] PCP - General Family Medicine 11/23/22 08/22/23 Provider, Not In System, CHRISTIAN SALAZAR PCP - General 08/23/23 08/27/24 [facility] Connection, Find-A-Doc [facility] Find-a-Doc [place], [place] [id number] PCP - General 08/28/24 11/06/24 [facility] Connection, Find[facility]Doc [facility] [place] [address] PCP - General 11/07/24 02/22/25 [facility], Provider Not In The System, [place] [address] PCP - General 02/23/25 06/26/25 [facility] Connection, Find[facility]A-Doc [facility] Find-a-Doc [place], [place] [address] PCP - General 06/27/25 documented as of this encounter
--- OUTSIDE RECORDS SUMMARY | 2025-08-12 20:14 | XMS_ITS | Encounter Summary ---
Author Organization [employer] ([place], [place], [place], [place], [place]) Address [address] [place] [address] Care Team Providers Care Tutorial Laboratory Supervisor Name Role Phone Igor Meyers MD Primary Care Provider [phone] Provider, Not In System FARMWORKER FRYER FARM Primary Care Provid er Unavailable [facility] Connection, Find-A-Doc Primary Care Provider [facility] Connection, Find[facility]A-Doc Primary Care Provider [facility], Provider Not In The System Primary Care Provider Unavailable [facility] Connection, Find-A-Doc Primary Care Provider Encounter Details Date Type Department Care Team (Late st Contact Info) Description 10/02/2019 Transcribed Document [facility] Family Medicine [address] [place] [address] ProviderRufino MD [address] [place] [address] Social History Tobacco Use Types Packs/Day Years Used Date Smoking Tobacco: Never Assessed Comments Unknown Sex and Gender Information Value Date Recorded Sex Assigned at Not on file Legal Sex Female 1:33 PM CDT Gender Identity Not on file Sexual Orientation Not on file documented as of this encounter Miscellaneous Notes * Cerner Conversion Note - Rufino ProviderMD - 10/02/2019 5:13 PM ANESTHESIOLOGY TECHNOLOGIST ED Discharge Entered On: 10/02/2019 17:14 EST Performed On: 10/02/2019 17:13 EST by Akshat Mercedes, ecommerce merchandising manager Process Patient Disposition : Discharge Personal Belongings With Patient : Yes Patient Education Completed : Yes Teaching Evaluation : Verbalizes understanding IV Discontinued : Not applicable Nursing Documentation Completed : Yes Akshat Mercedes, RN - 10/02/2019 17:13 EST ED Discharge Discharge To : Home with ambulatory/outpatient follow-up Mode Of Departure : Ambulatory Discharge Instructions Reviewed With, Opportunity For Questions Given : Patient Prescriptions Given to Patient : Nini Akshat Mercedes RN - 10/02/2019 17:13 EST Electronically signed by [facility] Conversion Trials Manager Cerner at 12/10/2022 6:38 PM CDT documented in this encounter Plan of Treatment Not on file documented as of this encounter Visit Diagnoses Not on filedocumented in this encounter Care Teams Tutorial Laboratory Supervisor Relationship Specialty Start Date End Date Igor Meyers MD [address] [place] [address] PCP - General Family Medicine 11/23/22 08/22/23 Provider, Not In System, CHRISTIAN SALAZAR PCP - General 08/23/23 08/27/24 [facility] Connection, Find[facility]Doc [facility] [place] [address] PCP - General 08/28/24 11/06/24 [facility] Connection, Find-A-Doc [facility] [place] [address] PCP - General 11/07/24 02/22/25 [facility], Provider Not In The System, [place] [address] PCP - General 02/23/25 06/26/25 [facility] Connection, Find-A-Doc [facility], [place] [id number] PCP - General 06/27/25 documented as of this encounter
--- OUTSIDE RECORDS SUMMARY | 2025-08-12 20:14 | XMS_ITS | Encounter Summary ---
Author Organization [employer] ([place], [place], [place], [place], [place]) Address [address] [place] [address] Care Team Providers Care Take Up Supervisor Name Role Phone Igor Meyers MD Primary Care Provider [phone] Provider, Not In System FIRE EXTINGUISHER REPAIRER Primary Care Provid er Unavailable [facility] Connection, Find-A-Doc Primary Care Provider [facility] Connection, Find[facility]A-Doc Primary Care Provider [facility], Provider Not In The System Primary Care Provider Unavailable [facility] Connection, Find-A-Doc Primary Care Provider Encounter Details Date Type Department Care Team (Late st Contact Info) Description 08/11/2019 Transcribed Document [facility] [place] [address] [place] [address] ProviderRufino MD [address] [place] [address] Social History Tobacco Use Types Packs/Day Years Used Date Smoking Tobacco: Never Assessed Comments Unknown Sex and Gender Information Value Date Recorded Sex Assigned at Not on file Legal Sex Female 1:33 PM CDT Gender Identity Not on file Sexual Orientation Not on file documented as of this encounter Miscellaneous Notes * Cerner Conversion Note - Rufino ProviderMD - 08/11/2019 7:16 PM ASP NET SOFTWARE DEVELOPER Electronically signed by Al[facility] Conversion Umbrella Frame Maker Cerner at 12/10/2022 6:30 PM CDT documented in this encounter Plan of Treatment Not on file documented as of this encounter Visit Diagnoses Not on filedocumented in this encounter Care Teams Take Up Supervisor Relationship Specialty Start Date End Date Igor Meyers MD [address] [place], [place] [address], [place] [address] PCP - General Family Medicine 11/23/22 08/22/23 Provider, Not In System, CHRISTIAN SALAZAR PCP - General 08/23/23 08/27/24 [facility] Connection, Find-A-Doc [facility] Find-a-Doc [place], [place] [id number] PCP - General 08/28/24 11/06/24 [facility] Connection, Find[facility]A-Doc [facility] [place] [place] [address] PCP - General 11/07/24 02/22/25 [facility], Provider Not In The System[place] [address] PCP - General 02/23/25 06/26/25 [facility] Connection, Find-A-Doc [facility] Find-a-Doc [place], [place] [id number] PCP - General 06/27/25 documented as of this encounter
--- OUTSIDE RECORDS SUMMARY | 2025-08-12 20:14 | XMS_ITS | Encounter Summary ---
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 SETTER ELECTRON BEAM MACHINE Primary Care Provid er Unavailable [facility] Connection, [facility]A-Doc Primary Care Provider [facility], [facility]Doc Primary Care Provider [facility], Provider Not In The System Primary Care Provider Unavailable [facility] Connection, [facility]A-Doc Primary Care Provider Encounter Details Date Type Department Care Team (Late st Contact Info) Description 11/03/2019 Transcribed Document [facility] Family Medicine [place] [address] ProviderRufino MD [address] [place] [address] Social History Tobacco Use Types Packs/Day Years Used Date Smoking Tobacco: Never Assessed Comments Unknown Sex and Gender Information Value Date Recorded Sex Assigned at Not on file Legal Sex Female 1:33 PM CDT Gender Identity Not on file Sexual Orientation Not on file documented as of this encounter Miscellaneous Notes * Cerner Conversion Note - Historical ProviderMD - 11/03/2019 3:25 AM CDT [place] [address] [place] [address] PERSON INFORMATION Name ROBERTO RANDLE Age 59 Years 1960 Sex Female Language Monegasque PCP PHY, UNKNOWN Marital Status Single Med Service Emergency Medicine Acct# Arrival 11/02/2019 22:33:00 Visit Reason Diarrhea; Chest pain; CP, HX ON CHF, DIARRHEA Acuity 2 - Emergent LOS 000 04:52 Depart Date: 11/03/19 03:25 AM Address: [facility] [id number] Comment: PROVIDER INFORMATION Provider Role Assigned Unassigned Keron Calle, collar padder blindstitch Nurse 11/02/2019 23:38:31 MARVIN ORTIZ MD-EMR ED Physician 11/03/2019 00:09:46 DIAGNOSIS Atypical chest pain PHYS DOC NOTES VITALS INFORMATION Vital Sign Triage Latest Temp Source Oral Oral Temp Mode Fahrenheit Fahrenheit Temp Fahrenheit 98.2 Deg F 98.2 Deg F Temp Celsius 02 Sat 97 % 97 % Respiratory Rate 20 Breaths/Min 20 Breaths/Min Peripheral Pulse Rate 74 bpm 74 bpm Apical Heart Rate Blood Pressure 128 mmHg / 77 mmHg 128 mmHg / 77 mmHg Comment: MEDICAL INFORMATION Allergy Info: sulfADIAZINE; sulfonamides Medications: Comment: DISCHARGE INFORMATION Discharge Disposition: Home Discharge Location: PATIENT EDUCATION INFORMATION Instructions: Chest Wall Pain Follow up: With: Address: When: JED ROSALES [address] [place] [address] Business (1) Within 2 to 3 days Comments: Call Dr Rosales's office in the morning for a follow up appointment in 1-2 days Return any problems Take imodium over the counter if your diarrhea continues With: Address: When: UNKNOWN PHY Within 2 to 3 days Comment: Electronically signed by Alphonse [facility] Conversion Collection Administrator Cerner at 12/10/2022 6:43 PM CDT documented in this encounter Plan of Treatment Not on file documented as of this encounter Visit Diagnoses Not on filedocumented in this encounter Care Teams Water Server Relationship Specialty Start Date End Date Igor Meyers MD [address] [place] [id number] PCP - General Family Medicine 11/23/22 08/22/23 Provider, Not In System, CHRISTIAN SALAZAR PCP - General 08/23/23 08/27/24 [facility], [facility]Doc [facility] [place] [address] PCP - General 08/28/24 11/06/24 [facility] Connection, [facility]Doc [facility] [place] [address] PCP - General 11/07/24 02/22/25 [facility], Provider Not In The System, [address] [place] [address] PCP - General 02/23/25 06/26/25 [facility] Connection, [facility]Doc [facility] [place] [address] PCP - General 06/27/25 documented as of this encounter
--- OUTSIDE RECORDS SUMMARY | 2025-08-12 20:14 | XMS_ITS | Encounter Summary ---
Author Organization [employer] ([place], [place], [place], [place], [place]) Address [address] [place] [address] Care Team Providers Care Comparative Sociology Professor Name Role Phone Igor Meyers MD Primary Care Provider [phone] Provider, Not In System MILK ROUTE SUPERVISOR Primary Care Provid er Unavailable [facility], [facility]Doc Primary Care Provider [facility], [facility] Primary Care Provider [facility], Provider Not In The System Primary Care Provider Unavailable [facility], [facility]Doc Primary Care Provider Encounter Details Date Type Department Care Team (Late st Contact Info) Description 08/11/2019 Transcribed Document [facility] [place] [place] Family [place] [facility] [place] [address] ProviderRufino MD [address] [place] [address] Social History Tobacco Use Types Packs/Day Years Used Date Smoking Tobacco: Never Assessed Comments Unknown Sex and Gender Information Value Date Recorded Sex Assigned at Not on file Legal Sex Female 1:33 PM CDT Gender Identity Not on file Sexual Orientation Not on file documented as of this encounter Miscellaneous Notes * Cerner Conversion Note - Rufino ProviderMD - 08/11/2019 5:45 PM ELECTRIC GOLF CART REPAIRERS Patient: ROBERTO RANDLE Age: 58 years Sex: Female : 1960 Associated Diagnoses: Nonspecific chest pain; Hyperglycemia Author: RIANA MALIK MD Basic Information Time seen: Date & time 08/11/2019 17:45:00, Voice recognition / network technical analyst technology used for some documentation in this [...] rather than electronic documentation.. . History source: Patient. Arrival mode: Private vehicle. History limitation: None. 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 p/w/d . History of Present Illness Ms. Randle, presents via POV to room #10, with a friend who dropped her off. She reports that she's been doing well up until approximately 45 minutes prior to arrival when she and her friend were driving in to [place] from [facility] today in order to visit and then returned home. She started developing some sharp left-sided chest pain that radiated into her left arm. It is associated with some slight nausea and some slight difficulty breathing. There is no precipitating, exacerbating or mitigating measures. She did not take any medication to help alleviate her discomfort. The patient presents with chest pain. The onset was 45 minutes ago. The course/duration of symptoms is constant. Location: Left anterior chest. Radiating pain: left arm. The character of symptoms is sharp. The degree at onset was moderate. The degree at maximum was moderate. The degree at present is moderate. The exacerbating factor is none. The relieving factor is none. Risk factors consist of coronary artery disease, hypertension, obesity, hyperlipidemia and family history of coronary artery disease. Prior episodes: non-cardiac. Therapy today None. Associated symptoms: shortness of breath, nausea, denies vomiting, denies diaphoresis, denies anxiety and denies palpitations. Additional history: See note above.. Review of Systems Constitutional symptoms: No fever, no chills, no weakness, no fatigue, no decreased activity. Skin symptoms: No jaundice, no rash, no pruritus, no abrasions, no petechiae. Eye symptoms: Vision unchanged. ENMT symptoms: No sore throat, no nasal congestion. Respiratory symptoms: Shortness of breath, no orthopnea, no cough. Cardiovascular symptoms: Chest pain, No palpitations, Gastrointestinal symptoms: Nausea, no abdominal pain, no [...] 62.5 mcg/inh inhalation powder: 62.5 mcg, Inhalation, [id number] Nitrostat 0.4 mg sublingual tablet: 1 Tab, [...] constipation fluticasone 50 mcg/inh nasal spray: 1 Dodge, Nasal, Daily, in each nostril, 16 Gram, [...] myocardial infarction, congestive heart failure, hyperlipidemia. Respiratory: asthma, chronic obstructive pulmonary disease, sleep apnea. 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 hysterectomy. tubal. Cholecystectomy; (01456). Multiple brain surgeries. Heart surgery as child.. [...] Physical Examination Vital Signs Vital Signs/Vital Measures 08/11/2019 17:28 EST Temperature Source Tympanic Temperature Mode Fahrenheit Temperature, Fahrenheit 98.6 Deg F Clinical Temperature, C 37 Deg C . Measurements 08/11/2019 17:28 EST Height Source Stated Height Entry Format Herrick Height/Length, CHILEAN (ft) 4 ft Height/Length CHILEAN 11 Inch CLINICALHEIGHT 149.86 cm [place] Body Weight 42.87 kg Weight Source, ED Standing scale Weight Entry Format Herrick Weight Lebanese lb 180 lb CLINICALWEIGHT 81.82 kg Body Surface Area (BSA) 1.76 m2 Body Mass Index 36.4 kg/m2 HI . Oxygen saturation. General: Alert, no acute distress, well nourished, calm, cooperative, well hydrated, Ambulation status: With steady gait. Skin: Warm, dry, pink, intact, no pallor, no rash. Head: Normocephalic, atraumatic. Neck: Supple, trachea midline, [...] Symmetrical chest wall expansion. Chest wall: No deformity, On exam: Left, anterior, moderate, tenderness, reproduces complaint. Back: Nontender, Normal range of motion. Musculoskeletal: Normal ROM, normal strength, no tenderness, no swelling. Gastrointestinal: Soft, Nontender, Non distended, Normal bowel sounds, No organomegaly. Genitourinary: Exam deferred. Neurological: Alert and oriented to person, place, time, and situation. Lymphatics: No lymphadenopathy. Psychiatric: Cooperative, appropriate mood & affect. Medical Decision Making Differential Diagnosis: Unstable angina, angina, costochondritis, pleurisy, chest wall pain, chronic obstructive pulmonary disease, not atypical chest pain. Documents reviewed: Emergency department nurses' notes, emergency department records, prior records. Orders Include Previous Orders (Selected) Inpatient Orders Ordered Blood Pressure: Cardiac Monitoring: Discharge: EKG: Pulse Oximetry Continuous Monitoring: Ordered (Exam Completed) CR Chest 1 Vw Portable: Completed BMP Basic Metabolic Panel: CBC no Diff (Hemogram): ED Adult Fall Risk Assessment: ED Adult Triage: ED Clinical Reconciliation: ED inspector tool: Normal Saline Flush: 10 mL, IV Push, 1-Time, PRN: Other (See Comment) ProBNP: Saline Lock Insert: Toradol: 30 mg, IV Push, 1-Time Troponin I Ultra: Prescriptions Prescribed traMADol 50 mg oral tablet: 1 Tab, Oral, Q4H, for 2 Day(s), PRN: as needed for pain, 10 Tab, 0 Refill(s). Electrocardiogram: Time 08/11/2019 17:38:00, rate 73, normal sinus rhythm, Previous EKG available No changes, Interpretation by Emergency Physician Interpreted by me contemporaneously with care, within normal limits, no ischemic changes. Results review: Lab results : Lab Results 08/11/2019 18:14 EST Sodium Level 138 mmol/L Potassium Level 4.8 mmol/L Chloride Level 104 mmol/L Carbon Dioxide Level 27 mmol/L Anion Gap 12 Glucose Level 289 mg/dL HI Blood Urea Nitrogen 14 mg/dL Creatinine Level 0.62 mg/dL eGFR >60 mL/min/1.73m2 eGFR NonAfrican >60 mL/min/1.73m2 Bun/Creatinine 22.6 HI Calcium Level 9.1 mg/dL Troponin I Ultra <0.015 ng/mL ProBNP 40 pg/mL WBC 10.8 K/uL HI RBC 4.65 Million/uL Hgb 13.5 Gram/dL Hct 40.3 % MCV 86.7 fL MCH 29.0 pg MCHC 33.5 Gram/dL Platelet Count 242 K/uL MPV 10.5 fL RDW 13.6 % Slide Review No . Chest X-Ray: Time reported 08/11/2019 19:12:00, no acute disease process, interpretation by Emergency Physician. Impression and Plan Diagnosis Nonspecific chest pain - Discharge, Emergency medicine, Medical Hyperglycemia - Discharge, Emergency medicine, Medical Plan Condition: Stable. Disposition: Discharged Admit/Transfer/Discharge: Discharge (Order): Start: 08/11/2019 19:16 EST, Discharge to: Home. Prescriptions: Prescription [facility]: traMADol 50 mg oral tablet (Prescribe): 1 Tab, Oral, Q4H, for 2 Day(s), PRN: as needed for pain, 10 Tab, 0 Refill(s). Patient was given the following educational materials: Nonspecific Chest Pain, Hyperglycemia, [id number]. Limitations: Limited activity. Follow up with: ; Follow up with primary care provider Within 2 to 3 days; Find a Doc ([facility]) Within 2 to 3 days; JOSHUA PERERA Within 2 to 3 days; MARIELA KEARNS Within 2 to 3 days Return or go to the nearest ER for worsening uncontrolled pain, shortness of breath and or persistent vomiting. . Counseled: Patient, Regarding diagnosis, Regarding diagnostic results, Regarding treatment plan, Patient indicated understanding of instructions. Electronically signed by Alphonse [facility] Conversion Gusset Stitcher Cerner at 12/10/2022 6:36 PM CDT documented in this encounter Plan of Treatment Not on file documented as of this encounter Visit Diagnoses Not on filedocumented in this encounter Care Teams Comparative Sociology Professor Relationship Specialty Start Date End Date Igor Meyers MD [address] [place] [id number] PCP - General Family Medicine 11/23/22 08/22/23 Provider, Not In System, CHRISTIAN SALAZAR PCP - General 08/23/23 08/27/24 [facility] Find-A-Doc [facility] [address] PCP - General 08/28/24 11/06/24 [facility], [facility]Doc [facility] [place] [address] PCP - General 11/07/24 02/22/25 [facility], Provider Not In The System, [place] [address] PCP - General 02/23/25 06/26/25 [facility], [facility]-a-Doc [place], [place] [id number] PCP - General 06/27/25 documented as of this encounter
--- OUTSIDE RECORDS SUMMARY | 2025-08-12 20:14 | XMS_ITS | Encounter Summary ---
Author Organization [facility] ([place], [place], [place], [place], [place]) Address [address] [place] [address] Care Team Providers Care Administrative Technician Name Role Phone Igor Hairston MD Primary Care Provider [phone] Provider, Not In System [employer] SPECIALIST Primary Care Provid er Unavailable [facility], [facility] Primary Care Provider [facility], [facility] Primary Care Provider [facility], Provider Not In The System Primary Care Provider Unavailable [facility], [facility] Primary Care Provider Encounter Details Date Type Department Care Team (Late st Contact Info) Description 04/13/2020 Transcribed Document [facility] – [place] Family [place] [facility] [place] [address] ProviderRufino MD [address] [place] [address] Social History Tobacco Use Types [...] Rufino ProviderMD - 04/13/2020 5:36 PM CDT [address] [address] ROBERTO RANDLE :1960 Visit Time:04/13/2020 Your Visit Summary Your Care Team Admitting Physician - AHFRANTZ CARPENTER MD-EMR PHY, UNKNOWN Attending Physician - FRANTZ ALVARADO MD-EMR QAZI, MUBASHIR A, MD-CAR Primary Care Physician - LEANNE, SAUL ELAINE Referring Physician - LEANNE, SELF REFERRED Your Diagnosis Chest pain, Chest pain Chest pain, Chest pain, unspecified, Chest pain, unspecified Pleurisy These Are Your Goals to get to feeling better and my chest to not hurt like it does - Met Discharge Vitals Temperature 36.6 ??C Heart Rate (Monitored) 76 Respiratory Rate 16 Blood Pressure 139/78 What to do next Instructions From Your Care Team Discharge Diet: Discharge Diet: Heart healthy diet Follow-Up Appointments Follow Up with IGOR HAIRSTON (REF)JOSE When Within 2 to 3 days Where: [address] [place] [address] [place] [address]- Medications What How Much When Instructions Next Dose ranolazine (Ranexa 1000 mg oral tablet, extended release) 1 Tablet(s) Oral Two Times A Day Duration: 30 Day(s) Pickup at [facility] tonight amLODIPine 5 Milligram(s) Oral Every Day tomorrow atorvastatin (atorvastatin 40 mg oral tablet) 1 Tablet(s) Oral Every Day tomorrow cholecalciferol (Vitamin D3) 2,000 International Units Oral Every Day tomorrow furosemide (furosemide 40 mg oral tablet) Oral Every Day tomorrow glyBURIDE 10 Milligram(s) Oral Every Day tomorow insulin glargine (Basaglar KwikPen) 10 Unit(s) SubCutaneous Every Day as needed for Hyperglycemia metFORMIN (metformin) 1,000 Milligram(s) Oral Two Times A Day tonight multivitamin Every Day tomorrow nitroglycerin (Nitrostat 0.4 mg sublingual tablet) 1 Tablet(s) SubLINgual Every 5 minutes as needed for as needed for chest pain potassium chloride (potassium chloride 20 mEq oral tablet, extended release) Oral Every Day tomorrow pregabalin (Lyrica) 75 Milligram(s) Oral Two Times A Day tonight rivaroxaban (Xarelto 10 mg oral tablet) 1 Tablet(s) Oral Every Day tomorrow SITagliptin (Januvia) 100 Milligram(s) Oral Every Day tomorrow traZODone (traZODone 100 mg oral tablet) 1 Tablet(s) Oral At Bedtime [facility] Pharmacy Information [facility]: [address] [place] [address] [phone] Take your medications faithfully. Do NOT skip [...] Please dispose of unused and medications per your retail pharmacy guidance. Allergies sulfADIAZINE (C/O: a swelling, itching) sulfonamides (Rash, Itching) ibuprofen Immunizations This Visit No Immunizations Found Education Materials Pleurisy Pleurisy is irritation and swelling (inflammation) of the linings of your lungs (pleura). This can cause pain in your chest, back, or shoulder. It can also cause trouble breathing. Follow these instructions at home: Medicines ??? Take [id number] and prescription medicines only as told by [...] 07/26/2009 Document Revised: 07/26/2018 Document Reviewed: 05/07/2017 [employer] Patient Education ?? 2020 [employer] Chest Wall Pain Chest wall pain is [...] for 20 minutes, 2???3 times per day. Activity ??? Rest as told by your health care provider. ??? Avoid activities that cause pain. These include any activities that use your chest muscles or your abdominal and side muscles to lift heavy items. Ask your health care provider what activities are safe for you. General instructions ??? Take dzvc-wef-fnmitvb and prescription medicines only as told by [...] 08/13/2006 Document Revised: 02/13/2019 Document Reviewed: 02/13/2019 [employer] Patient Education ?? 2020 [employer] 100e. ranolazine (ra ANDREWS crain) Ranexa What is the most important information I should know about ranolazine? You should not take ranolazine if you have cirrhosis of the liver. Tell your doctor about all your current medicines and any you start or stop using. Many drugs can interact, and some drugs should not be used together. What is ranolazine? Ranolazine is used to treat chronic angina (chest pain). Ranolazine is not for use during an acute (emergency) attack of angina. Ranolazine may also be used for purposes not listed in this medication guide. What should I discuss with my healthcare provider before taking ranolazine? You should not take ranolazine if you are allergic to it, or if you have: ?? cirrhosis of the liver. Many drugs can interact and cause dangerous effects. Some drugs should not be used together with ranolazine. Your doctor may change your treatment plan if you also use: ?? clarithromycin; ?? nefazodone; ?? Kareem's wort; ?? antifungal medicine--itraconazole, ketoconazole; ?? HIV or AIDS medicine--indinavir, lopinavir/ritonavir, nelfinavir, ritonavir, saquinavir; ?? seizure medicine--carbamazepine, phenobarbital, phenytoin; or ?? tuberculosis medicine--rifabutin, rifampin, rifapentine. Tell your doctor if you have ever had: ?? long QT syndrome (in you or a family member); ?? liver disease; or ?? kidney disease. Tell your doctor if you are or . How should I take ranolazine? Follow all directions on your prescription label and read all medication guides or instruction sheets. Your doctor may occasionally change your dose. Use the medicine exactly as directed. You may take ranolazine with or without food. Swallow the tablet whole and do not crush, chew, or break it. Chronic angina is often treated with a combination of drugs. Use all medications as directed and read all medication guides you receive. Do not change your dose or dosing schedule without your doctor's advice. Call your doctor if your symptoms do not improve, or if they get worse. You will need frequent medical tests to check your heart and kidney function. Store at room temperature away from moisture and heat. What happens if I miss a dose? Skip the missed dose and use your next dose at the regular time. Do not use two doses at one time. What happens if I overdose? Seek emergency medical attention or call the Poison Help line at . Overdose can cause nausea, vomiting, numbness or tingling, dizziness, double vision, confusion, or fainting. What should I avoid while taking ranolazine? Avoid driving or hazardous activity until you know how this medicine will affect you. Your reactions could be impaired. Grapefruit may interact with ranolazine and lead to unwanted side effects. Avoid the use of grapefruit products. What are the possible side effects of ranolazine? Get emergency medical help if you have signs of an allergic reaction: hives; difficult breathing; swelling of your face, lips, tongue, or throat. Call your doctor at once if you have: ?? a light-headed feeling, like you might pass out; ?? fast or pounding heartbeats, fluttering in your chest; or ?? kidney problems--little or no urination, painful or difficult urination, swelling in your feet or ankles, feeling tired or short of breath. Common side effects may include: ?? nausea, constipation; ?? headache; or ?? dizziness. This is not a complete list of side effects and others may occur. Call your doctor for medical advice about side effects. You may report side effects to FDA at 4-419-EYS-6855. What other drugs will affect ranolazine? Tell your doctor about all your current medicines. Many drugs can affect ranolazine, especially: ?? any other medicine to treat heart disease; ?? an antibiotic or antifungal medicine; ?? cholesterol-lowering medicine; ?? oral diabetes medicine; ?? medicine to prevent organ transplant rejection; ?? medicine to treat a mental illness; or ?? medicine to treat or prevent nausea and vomiting caused by chemotherapy or radiation. This list is not complete and many other drugs may affect ranolazine. This includes prescription and ukic-gio-yxplgwv medicines, vitamins, and herbal products. Not all [...] to ensure that the information provided by [employer]. ('[employer]') is accurate, up-to-date, and complete, but no guarantee is made to that effect. Drug information contained herein may be time sensitive. [employer] information has been compiled for use by healthcare practitioners and consumers in the [place] and therefore [employer] does not warrant that uses outside of the [place] are appropriate, unless specifically indicated otherwise. [employer] drug information does not endorse drugs, diagnose patients or recommend therapy. [employer] drug information is an informational resource designed [...] effective or appropriate for any given patient. [employer] does not assume any responsibility for any aspect of healthcare administered with the aid of information [employer] provides. The information contained herein is not intended to cover all possible uses, directions, precautions, warnings, drug interactions, allergic reactions, or adverse effects. If you have questions about the drugs you are taking, check with your doctor, nurse or pharmacist. Copyright 1093-2367 [employer]. Version: 12.. Revision Date: 05/07/2019. Emergency Awareness and Preventative Care STROKE is [...] Assistance with quitting is available by contacting 4-230-YXKLNOW. This is a free resource providing counseling, support, and referral. Or you may contact your personal physician. [place] Suicide Prevention Lifeline: The National Suicide Prevention [...] and how to prevent infections, visit www.cdc.gov/sepsis. Test Results Laboratory or Other Results This Visit (last charted value for your 04/13/2020 visit) Hematology 04/13/2020 5:43 AM WBC: 12.2 K/uL -- Normal range between ( 3.9 and 10.0 ) RBC: 4.62 Million/uL -- Normal range between ( 3.93 and 5.22 ) Hct: 40.7 % -- Normal range between ( 34.1 and 44.9 ) Hgb: 13.4 Gram/dL -- Normal range between ( 11.2 and 15.7 ) Platelet Count: 228 K/uL -- Normal range between ( 163 and 369 ) MCH: 29.0 pg -- Normal range between ( 25.6 and 32.2 ) MCHC: 32.9 Gram/dL -- Normal range between ( 32.3 and 36.5 ) MCV: 88.1 fL -- Normal range between ( 79.0 and 94.8 ) Slide Review: No Eos %: 1.4 % -- Normal range between ( 1.0 and 7.0 ) [place] #: 0.71 K/uL -- Normal range between ( 0.24 and 0.82 ) Eos #: 0.17 K/uL -- Normal range between ( 0.04 and 0.54 ) [place] %: 5.8 % -- Normal range between ( 4.7 and 12.5 ) Sed Rate Auto: 10 mm/Hr -- Normal range between ( 0 and 30 ) Baso %: 0.4 % -- Normal range between ( 0.0 and 1.0 ) Baso #: 0.05 K/uL -- Normal range between ( 0.01 and 0.08 ) RDW: 13.4 % -- Normal range between ( 11.6 and 14.4 ) Neut %: 62.3 % -- Normal range between ( 34.0 and 71.0 ) Neut #: 7.59 K/uL -- Normal range between ( 1.56 and 6.13 ) Lymph %: 29.4 % -- Normal range between ( 19.3 and 53.0 ) Lymph #: 3.59 K/uL -- Normal range between ( 1.18 and 3.74 ) MPV: 10.3 fL -- Normal range between ( 9.4 and 12.4 ) IG#: 0 x10(3)/uL IG%: 1 % -- Normal range between ( 0 and 1 ) Urinalysis 04/13/2020 3:41 AM Urine Nitrite: Negative Urine Leukocyte Esterase: Negative Urine Appearance: Clear Urine Glucose Dipstick: 100 Urine Blood Dipstick: Negative Urine Type: U CleanCatch Urine Urobilinogen Dipstick: 0.2 EU/dL -- Normal range between ( 0.2 and 1.0 ) Urine Protein Dipstick: Negative Urine Color: Yellow Urine Ketones Dipstick: Negative Urine pH Dipstick: 6.0 -- Normal range between ( 6.0 and 8.0 ) Urine Bilirubin Dipstick: Negative Urine Specific [place]: 1.022 -- Normal range between ( 1.005 and 1.030 ) Urine Chemistry 04/13/2020 3:41 AM Osmolality Urine: 642 mOsm/kg -- Normal range between ( 250 and 900 ) Sodium Ur [place]: 42 mMole/Liter General Chemistry 04/13/2020 5:47 AM Glucose POC2: 101 mg/dL -- Normal range between ( 70 and 110 ) 04/13/2020 5:43 AM Creatinine Level: 0.45 mg/dL -- Normal range between ( 0.55 and 1.02 ) Sodium Level: 141 mmol/L -- Normal range between ( 136 and 146 ) Potassium Level: 4.7 mmol/L -- Normal range between ( 3.5 and 5.1 ) Chloride Level: 105 mmol/L -- Normal range between ( 102 and 112 ) Carbon Dioxide Level: 30 mmol/L -- Normal range between ( 21 and 32 ) Anion Gap: 11 -- Normal range between ( 9 and 20 ) Bilirubin Total: 0.4 mg/dL -- Normal range between ( 0.2 and 1.3 ) A/G Ratio: 1.2 -- Normal range between ( 1.1 and 2.5 ) ALT: 27 Units/Liter -- Normal range between ( 12 and 78 ) AST: 14 Units/Liter -- Normal range between ( 5 and 37 ) Globulin: 2.9 Gram/dL -- Normal range between ( 1.5 and 4.5 ) Alk Phos: 68 Units/Liter -- Normal range between ( 27 and 136 ) Bun/Creatinine: 22.2 -- Normal range between ( 8.0 and 20.0 ) Calcium Level: 9.1 mg/dL -- Normal range between ( 8.5 and 10.1 ) CRP: 0.3 mg/dL -- Normal range between ( 0.0 and 0.9 ) eGFR : >60 mL/min/1.73m2 eGFR NonAfrican: >60 mL/min/1.73m2 Glucose Level: 102 mg/dL -- Normal range between ( 74 and 106 ) Magnesium Level: 2.0 mg/dL -- Normal range between ( 1.5 and 2.4 ) Blood Urea Nitrogen: 10 mg/dL -- Normal range between ( 7 and 22 ) Protein Total: 6.4 Gram/dL -- Normal range between ( 6.4 and 8.2 ) Albumin Level: 3.5 Gram/dL -- Normal range between ( 3.4 and 5.0 ) 04/13/2020 3:41 AM Osmolality Serum: 292 mOsm/kg -- Normal range between ( 280 and 300 ) Cardiac Specific Markers 04/13/2020 5:43 AM Troponin I Ultra: <0.015 ng/mL -- Normal range between ( 0.015 and 0.045 ) ProBNP: 39 pg/mL -- Normal range between ( 0 and 125 ) Coagulation 04/13/2020 5:43 AM INR: 1.0 -- Normal range between ( 0.9 and 1.1 ) PTT: 27.7 Second(s) -- Normal range between ( 24.2 and 31.8 ) PT: 10.4 Second(s) -- Normal range between ( 9.6 and 11.5 ) Lipid Studies 04/13/2020 5:43 AM Cholesterol Tot: 116 mg/dL -- Normal range between ( 0 and 199 ) Cholesterol HDL: 54.0 mg/dL Cholesterol LDL Calculation: 35.8 mg/dL -- Normal range between ( 0.0 and 99.0 ) Cholesterol VLDL Calculation: 26.2 mg/dL -- Normal range between ( 5.0 and 40.0 ) Cholesterol/HDL Ratio: 2.1 -- Normal range between ( 0.0 and 3.2 ) Triglyceride: 131 mg/dL -- Normal range between ( 0 and 249 ) LDL/HDL Ratio: 0.7 -- Normal range between ( 0.0 and 3.2 ) Endocrinology 04/13/2020 5:43 AM TSH: 1.210 mcInt Units/mL -- Normal range between ( 0.358 and 3.740 ) Computed Tomography 04/13/2020 2:[address] Chest WO: CT Chest WO Diagnostic Radiology 04/13/2020 0:55 AM CR Chest 1 Vw Portable: CR Chest 1 Vw Portable Patient Name:ROBERTO RANDLE I have received and understand this information and was given the opportunity to ask questions. Patient/Charter Coordinator Name: Patient/Charter Coordinator Signature: Relationship to Patient: Clinician/Hospital Charter Coordinator Signature: Date: Electronically signed by [facility], [facility] [employer] at 12/10/2022 6:29 PM CDT documented in this encounter Plan of Treatment Not on file documented as of this encounter Visit Diagnoses Not on filedocumented in this encounter Care Teams Administrative Technician Relationship Specialty Start Date End Date Igor Hairston MD [address] [place] [id number] PCP - General Family Medicine 11/23/22 08/22/23 Provider, Not In System, CHRISTIAN SALAZAR PCP - General 08/23/23 08/27/24 [facility], [facility] [place] [address] PCP - General 08/28/24 11/06/24 [facility], [facility] [place], [place] [id number] PCP - General 11/07/24 02/22/25 [facility], Provider Not In The System, [address] [place] [address] PCP - General 02/23/25 06/26/25 [facility], [facility] [place], [place] [id number] PCP - General 06/27/25 documented as of this encounter
--- OUTSIDE RECORDS SUMMARY | 2025-08-12 20:14 | XMS_ITS | Encounter Summary ---
Author Organization [employer] ([place], [place], [place], [place], [place]) Address [address] [place] [address] Care Team Providers Care Hog Slaughterer Name Role Phone Igor Meyers MD Primary Care Provider [phone] Provider, Not In System CUPOLA WORKER Primary Care Provid er Unavailable [place] [...] st Contact Info) Description 08/11/2019 Transcribed Document [facility] Family Medicine [address] [place] [address] ProviderRufino MD [address] [place] [address] Social History Tobacco Use Types Packs/Day Years Used Date Smoking Tobacco: Never Assessed Comments Unknown Sex and Gender Information Value Date Recorded Sex Assigned at Not on file Legal Sex Female 1:33 PM CDT Gender Identity Not on file Sexual Orientation Not on file documented as of this encounter Miscellaneous Notes * Cerner Conversion Note - Rufino ProviderMD - 08/11/2019 5:23 PM WAFER POLISHER ED Triage Entered On: 08/11/2019 17:31 EST Performed On: 08/11/2019 17:28 EST by LEE BLAKELY REBAR WORKER Triage Across the Room Chief Complaint : c/o chest pain into 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 p/w/d Triage Date/Time : 08/11/2019 17:28 EST ELE BLAKELY RN - 08/11/2019 17:28 EST DCP GENERIC CODE Tracking Acuity : 2 - Emergent Tracking Group : [facility] LEE BLAKELY RN - 08/11/2019 17:28 EST Mode of Arrival : Ambulatory Transported to ED by : Private vehicle To Room Via : Ambulate Accompanied By : Unaccompanied ED Vital Signs : Document Height & Weight : Document ED Allergies : Document ED Reason for Visit : Document Tetanus Immunization : Less than 5 years LEE BLAKELY RN - 08/11/2019 17:28 EST Infectious Disease History Infectious Disease History : Chicken pox/Shingles, Herpes, Measles, Mumps Fever/Chills Last 48 Hours : No Travel To Regions with Travel Advisories : No Travel Outside [place] Within Last 30 Days : No Contact With Traveler to Advisory Region : No Tuberculosis Symptoms : None LEE BLAKELY RN - 08/11/2019 17:28 EST Vital Signs ED Temperature Source : Tympanic Temperature Mode : Fahrenheit Temperature, Fahrenheit : 98.6 Deg F Clinical Temperature, C : 37 Deg C LEE BLAKELY RN - 08/11/2019 17:28 EST Allergy (As Of: 08/11/2019 17:31:58 EST) Allergies (Active) sulfADIAZINE Estimated Onset Date: Unspecified ; Reactions: itching ; Created By: Ella Phelan Rn; Reaction Status: Active ; Category: Drug ; Substance: sulfADIAZINE ; Type: Allergy ; Severity: Severe ; Updated By: Ella Phelan Rn; Reviewed Date: 08/11/2019 17:31 EST sulfonamides Estimated Onset Date: Unspecified ; Reactions: Itching, Rash ; Created By: Diana Michel, Pharmacist-Resident; Reaction Status: Active ; Category: Drug ; Substance: sulfonamides ; Type: Allergy ; Severity: Moderate ; Updated By: Diana Michel, Pharmacist-Resident; Source: Patient ; Reviewed Date: 08/11/2019 17:31 EST Diagnosis Control ED (As Of: 08/11/2019 17:31:58 EST) Problems(Active) Apnea, sleep (SNOMED CT :942392192 ) Name of Problem: Apnea, sleep ; Recorder: Sheryl Burnett RN; Confirmation: Confirmed ; Classification: Patient Stated ; Code: [id number] ; Contributor System: PowerChart ; Last Updated: 08/12/2014 20:25 EST ; Life Cycle Date: 08/12/2014 ; Life Cycle Status: Active ; Vocabulary: SNOMED CT Chronic CHF (SNOMED CT :568767940 ) Name of Problem: Chronic CHF ; Recorder: Sheryl Burnett RN; Confirmation: Confirmed ; Classification: Patient Stated ; Code: 748625208 ; Contributor System: PowerChart ; Last Updated: 08/12/2014 20:25 EST ; Life Cycle Date: 08/12/2014 ; Life Cycle Status: Active ; Vocabulary: SNOMED CT COPD (chronic obstructive pulmonary disease) with emphysema (SNOMED CT :535933084 ) Name of Problem: COPD (chronic obstructive pulmonary disease) with emphysema ; Recorder: Sheryl Burnett RN; Confirmation: Confirmed ; Classification: Patient Stated ; Code: 942635044 ; Contributor System: PowerChart ; Last Updated: 08/12/2014 20:25 EST ; Life Cycle Date: 08/12/2014 ; Life Cycle Status: Active ; Vocabulary: SNOMED CT Diabetes (SNOMED CT :993865765 ) Name of Problem: Diabetes ; Recorder: Sheryl Burnett RN; Confirmation: Confirmed ; Classification: Patient Stated ; Code: 656953492 ; Contributor System: PowerChart ; Last Updated: 08/12/2014 20:24 EST ; Life Cycle Date: 08/12/2014 ; Life Cycle Status: Active ; Vocabulary: SNOMED CT Genital herpes (SNOMED CT :84283243 ) Name of Problem: Genital herpes ; Recorder: Sheryl Burnett RN; Confirmation: Confirmed ; Classification: Patient Stated ; Code: 98729033 ; Contributor System: PowerChart ; Last Updated: 08/12/2014 20:25 EST ; Life Cycle Date: 08/12/2014 ; Life Cycle Status: Active ; Vocabulary: SNOMED CT History of obstructive sleep apnea (IMO :14958625 ) Name of Problem: History of obstructive sleep apnea ; Recorder: FUAD, SYSTEM; Confirmation: Confirmed ; Classification: Medical ; Code: 37635258 ; Last Updated: 03/07/2018 10:59 EDT ; Life Cycle Date: 03/07/2018 ; Life Cycle Status: Active ; Vocabulary: IMO HTN (hypertension) (SNOMED CT :6786836475 ) Name of Problem: HTN (hypertension) ; Recorder: Sheryl Burnett RN; Confirmation: Confirmed ; Classification: Patient Stated ; Code: 7574419785 ; Contributor System: SalesLoftChart ; Last Updated: 08/12/2014 20:24 EST ; Life Cycle Date: 08/12/2014 ; Life Cycle Status: Active ; Vocabulary: SNOMED CT Hydrocephalus (SNOMED CT :195966866 ) Name of Problem: Hydrocephalus ; Recorder: Sheryl Burnett RN; Confirmation: Confirmed ; Classification: Patient Stated ; Code: 705385449 ; Contributor System: PowerChart ; Last Updated: 08/12/2014 20:24 EST ; Life Cycle Date: 08/12/2014 ; Life Cycle Status: Active ; Vocabulary: SNOMED CT Hyperlipemia (SNOMED CT :06721700 ) Name of Problem: Hyperlipemia ; Recorder: Sheryl Burnett RN; Confirmation: Confirmed ; Classification: Patient Stated ; Code: 77070546 ; Contributor System: PowerChart ; Last Updated: 08/12/2014 20:24 EST ; Life Cycle Date: 08/12/2014 ; Life Cycle Status: Active ; Vocabulary: SNOMED CT Myocardial infarction (SNOMED CT :64738747 ) Name of Problem: Myocardial infarction ; Recorder: Sheryl Burnett RN; Confirmation: Confirmed ; Classification: Patient Stated ; Code: 13961613 ; Contributor System: SalesLoftChart ; Last Updated: 08/12/2014 20:25 EST ; Life Cycle Date: 08/12/2014 ; Life Cycle Status: Active ; Vocabulary: SNOMED CT Diagnoses(Active) Chest pain Date: 08/11/2019 ; Diagnosis Type: Reason For Visit ; Confirmation: Complaint of ; Clinical Dx: Chest pain ; Classification: Medical ; Clinical Service: Emergency medicine ; Code: PNED ; Probability: 0 ; Diagnosis Code: [id number] ED Height and Weight Height Source : Stated Height Entry Format : [place] Height, Feet : 4 ft(Converted to: 122 cm, 48 Inch) Height, Inches : 11 Inch(Converted to: 0 ft 11 Inch, 27.94 cm) Clinical Height : 149.86 cm Weight Source, ED : Standing scale Weight Entry Format : [place] Weight, Pounds : 180 lb Clinical Dosing Weight : 81.82 kg Body Surface Area (BSA) : 1.76 m2 Body Mass Index : 36.4 kg/m2 (HI) [place] Body Weight (IBW) : 42.87 kg LEE BLAKELY RN - 08/11/2019 17:28 EST Electronically signed by [facility], [facility] Conversion Plate Shop Helper Cerner at 12/10/2022 6:34 PM CDT documented in this encounter Plan of Treatment Not on file documented as of this encounter Visit Diagnoses Not on filedocumented in this encounter Care Teams Hog Slaughterer Relationship Specialty Start Date End Date Igor Meyers MD [address] [place] [address] PCP - General Family Medicine 11/23/22 08/22/23 Provider, Not In System, CHRISTIAN SALAZAR PCP - General 08/23/23 08/27/24 [facility] Connection, [facility] [place] [address] PCP - General 08/28/24 11/06/24 [facility], [facility] [place] [address] PCP - General 11/07/24 02/22/25 [facility], Provider Not In The System, [place] [address] PCP - General 02/23/25 06/26/25 [facility], [facility]Doc [facility] [place] [address] PCP - General 06/27/25 documented as of this encounter
--- OUTSIDE RECORDS SUMMARY | 2025-08-12 20:14 | XMS_ITS | Encounter Summary ---
Author Organization [employer] ([place], [place], [place], [place], [place]) Address [address] [place] [address] Care Team Providers Care Internet Sales Consultant Name Role Phone Igor Meyers MD Primary Care Provider [phone] Provider, Not In System SENIOR ENVIRONMENTAL CONSULTANT Primary Care Provid er Unavailable [facility] Connection, [facility]Doc Primary Care Provider [facility], [facility] Primary Care Provider [facility], Provider Not In The System Primary Care Provider Unavailable [facility], [facility] Primary Care Provider Encounter Details Date Type Department Care Team (Late st Contact Info) Description 03/19/2020 Transcribed Document [facility] Radiology [address] [place] [address] Niranjan Villar MD [address] [place] [address] Dept. [place] [address] Social History Tobacco Use Types Packs/Day Years Used Date Smoking Tobacco: Never Assessed Comments Unknown Sex and Gender Information Value Date Recorded Sex Assigned at Not on file Legal Sex Female 1:33 PM CDT Gender Identity Not on file Sexual Orientation Not on file documented as of this encounter Miscellaneous Notes * Cerner Conversion Note - Niranjan Villar MD - 03/19/2020 2:23 PM EDT CR Chest 1 Vw Portable Ordered: 03/19/2020 Modified Reason for Exam: chst pain off/on one week worse today this episode since 830 am 03/19/2020 11:52 03/19/2020 13:23 (NIRANJAN VILLAR MD-EMR) Reviewed by Provider, No further action required x1 chronic findings, no acute emergency related process Electronically signed by Alphonse [facility] Conversion Slackline Operator Cerner at 12/10/2022 6:31 PM CDT documented in this encounter Plan of Treatment Not on file documented as of this encounter Visit Diagnoses Not on filedocumented in this encounter Care Teams Internet Sales Consultant Relationship Specialty Start Date End Date Igor Meyers MD [address] [place] [address] PCP - General Family Medicine 11/23/22 08/22/23 Provider, Not In System, CHRISTIAN SALAZAR PCP - General 08/23/23 08/27/24 [facility] Connection, [facility] Find-a-Doc [place], [place] [id number] PCP - General 08/28/24 11/06/24 [facility], [facility] [place] [address] PCP - General 11/07/24 02/22/25 [facility], Provider Not In The System, [place] [address] PCP - General 02/23/25 06/26/25 [facility] Connection, [facility]A-Doc [facility] Find-a-Doc [place], [place] [id number] PCP - General 06/27/25 documented as of this encounter
--- OUTSIDE RECORDS SUMMARY | 2025-08-12 20:14 | XMS_ITS | Encounter Summary ---
Author Organization [employer] ([place], [place], [place], [place], [place]) Address [address] [place] [address] Care Team Providers Care Medical Records Coordinator Name Role Phone Igor Meyers MD Primary Care Provider [phone] Provider, Not In System FINE GRADE OPERATOR Primary Care Provid er Unavailable [facility] Connection, [facility]A-Doc Primary Care Provider [facility], [facility]Doc Primary Care Provider [facility], Provider Not In The System Primary Care Provider Unavailable [facility], [facility]A-Doc Primary Care Provider Encounter Details Date Type Department Care Team (Late st Contact Info) Description 11/02/2019 Transcribed Document [facility] [facility] [place] [address] ProviderRufino MD [address] [place] [address] Social History Tobacco Use Types [...] ProviderMD - 11/02/2019 10:33 PM CDT ED Triage Entered On: 11/02/2019 23:21 EDT Performed On: 11/02/2019 22:43 EDT by LAWRENCE YING, REFERRAL NURSE Triage Across the Room Chief Complaint : c/o- left sided area x 1 1/2 hours lpta; states can't see laboratory cureman until December. +nausea/Dirrhea x 1 week; no vomiting; had 2 NTG SL lpta; - no help at all; EKG done in triage @ 2243; +dizziness; LAWRENCE YING RN - 11/02/2019 23:34 EDT Triage Date/Time : 11/02/2019 23:18 EDT LAWRENCE YING RN - 11/02/2019 23:18 EDT DCP GENERIC CODE Tracking Group : [facility] Tracking Acuity : 2 - Emergent LAWRENCE YING RN - 11/02/2019 23:18 EDT Mode of Arrival : Ambulatory Transported to ED by : Private vehicle To Room Via : Ambulate Accompanied By : Friend ED Vital Signs : Document Height & Weight : Document ED Allergies : Document ED Reason for Visit : Document Tetanus Immunization : Less than 5 years LAWRENCE YING RN - 11/02/2019 23:18 EDT Infectious Disease History COVID19 Screening : No Physical contact outside [place] in the last 30 days : No Infectious Disease History : Chicken pox/Shingles, Herpes, Measles, Mumps Tuberculosis Symptoms : None LAWRENCE YING RN - 11/02/2019 23:18 EDT Vital Signs ED Temperature Source : Oral Temperature Mode : Fahrenheit Temperature, Fahrenheit : 98.2 Deg F ED Pain : Yes Clinical Temperature, C : 36.8 Deg C Oxygen Therapy Mode : Room air Peripheral Pulse Rate : 74 bpm Respiratory Rate : 20 Breaths/Min Blood Pressure Location : Arm, right upper Blood Pressure Source : Non-Invasive BP Device Systolic Blood Pressure : 128 mmHg Diastolic Blood Pressure : 77 mmHg Oxygen Saturation : 97 % LAWRENCE YING RN - 11/02/2019 23:18 EDT Allergy (As Of: 11/02/2019 23:22:00 EDT) Allergies (Active) sulfADIAZINE Estimated Onset Date: Unspecified ; Reactions: itching ; Created By: Ella Phelan Rn; Reaction Status: Active ; Category: Drug ; Substance: sulfADIAZINE ; Type: Allergy ; Severity: Severe ; Updated By: Ella Phelan Rn; Reviewed Date: 11/02/2019 23:18 EDT sulfonamides Estimated Onset Date: Unspecified ; Reactions: Itching, Rash ; Created By: Diana Michel, Pharmacist-Resident; Reaction Status: Active ; Category: Drug ; Substance: sulfonamides ; Type: Allergy ; Severity: Moderate ; Updated By: Diana Michel, Pharmacist-Resident; Source: Patient ; Reviewed Date: 11/02/2019 23:18 EDT Diagnosis Control ED (As Of: 11/02/2019 23:22:00 EDT) Problems(Active) Apnea, sleep (SNOMED CT :928073861 ) Name of Problem: Apnea, sleep ; Recorder: Sheryl Burnett RN; Confirmation: Confirmed ; Classification: Patient Stated ; Code: 715309238 ; Contributor System: [employer]wave MedicalChart ; Last Updated: 08/12/2014 20:25 EST ; Life Cycle Date: 08/12/2014 ; Life Cycle Status: Active ; Vocabulary: SNOMED CT Chronic CHF (SNOMED CT :721743655 ) Name of Problem: Chronic CHF ; Recorder: Sheryl Burnett RN; Confirmation: Confirmed ; Classification: Patient Stated ; Code: 105011605 ; Contributor System: PowerChart ; Last Updated: 08/12/2014 20:25 EST ; Life Cycle Date: 08/12/2014 ; Life Cycle Status: Active ; Vocabulary: SNOMED CT COPD (chronic obstructive pulmonary disease) with emphysema (SNOMED CT :348202618 ) Name of Problem: COPD (chronic obstructive pulmonary disease) with emphysema ; Recorder: Sheryl Burnett RN; Confirmation: Confirmed ; Classification: Patient Stated ; Code: 596846657 ; Contributor System: PowerChart ; Last Updated: 08/12/2014 20:25 EST ; Life Cycle Date: 08/12/2014 ; Life Cycle Status: Active ; Vocabulary: SNOMED CT Diabetes (SNOMED CT :150060749 ) Name of Problem: Diabetes ; Recorder: Sheryl Burnett RN; Confirmation: Confirmed ; Classification: Patient Stated ; Code: 251952357 ; Contributor System: PowerChart ; Last Updated: 08/12/2014 20:24 EST ; Life Cycle Date: 08/12/2014 ; Life Cycle Status: Active ; Vocabulary: SNOMED CT Genital herpes (SNOMED CT :65255737 ) Name of Problem: Genital herpes ; Recorder: Sheryl Burnett RN; Confirmation: Confirmed ; Classification: Patient Stated ; Code: 54338734 ; Contributor System: PowerChart ; Last Updated: 08/12/2014 20:25 EST ; Life Cycle Date: 08/12/2014 ; Life Cycle Status: Active ; Vocabulary: SNOMED CT History of obstructive sleep apnea (IMO :87146064 ) Name of Problem: History of obstructive sleep apnea ; Recorder: SYSTEM, SYSTEM; Confirmation: Confirmed ; Classification: Medical ; Code: 21380991 ; Last Updated: 03/07/2018 10:59 EDT ; Life Cycle Date: 03/07/2018 ; Life Cycle Status: Active ; Vocabulary: IMO HTN (hypertension) (SNOMED CT :9073124951 ) Name of Problem: HTN (hypertension) ; Recorder: Sheryl Burnett RN; Confirmation: Confirmed ; Classification: Patient Stated ; Code: 4361719652 ; Contributor System: Shockwave MedicalChart ; Last Updated: 08/12/2014 20:24 EST ; Life Cycle Date: 08/12/2014 ; Life Cycle Status: Active ; Vocabulary: SNOMED CT Hydrocephalus (SNOMED CT :209374840 ) Name of Problem: Hydrocephalus ; Recorder: Sheryl Burnett RN; Confirmation: Confirmed ; Classification: Patient Stated ; Code: 445484516 ; Contributor System: PowerChart ; Last Updated: 08/12/2014 20:24 EST ; Life Cycle Date: 08/12/2014 ; Life Cycle Status: Active ; Vocabulary: SNOMED CT Hyperlipemia (SNOMED CT :17834021 ) Name of Problem: Hyperlipemia ; Recorder: Sheryl Burnett RN; Confirmation: Confirmed ; Classification: Patient Stated ; Code: 16221962 ; Contributor System: Shockwave MedicalChart ; Last Updated: 08/12/2014 20:24 EST ; Life Cycle Date: 08/12/2014 ; Life Cycle Status: Active ; Vocabulary: SNOMED CT Myocardial infarction (SNOMED CT :81246019 ) Name of Problem: Myocardial infarction ; Recorder: Sheryl Burnett RN; Confirmation: Confirmed ; Classification: Patient Stated ; Code: 68859586 ; Contributor System: PowerChart ; Last Updated: 08/12/2014 20:25 EST ; Life Cycle Date: 08/12/2014 ; Life Cycle Status: Active ; Vocabulary: SNOMED CT Diagnoses(Active) Chest pain Date: 11/02/2019 ; Diagnosis Type: Reason For Visit ; Confirmation: Complaint of ; Clinical Dx: Chest pain ; Classification: Medical ; Clinical Service: Emergency medicine ; Code: PNED ; Probability: 0 ; Diagnosis Code: [id number] Diarrhea Date: 11/02/2019 ; Diagnosis Type: Reason For Visit ; Confirmation: Complaint of ; Clinical Dx: Diarrhea ; Classification: Medical ; Clinical Service: Emergency medicine ; Code: PNED ; Probability: 0 ; Diagnosis Code: [id number] ED Height and Weight Height Source : Measured Height Entry Format : [place] Height, Feet : 4 ft(Converted to: 122 cm, 48 Inch) Height, Inches : 11 Inch(Converted to: 0 ft 11 Inch, 27.94 cm) Clinical Height : 149.86 cm Weight Source, ED : Standing scale Weight Entry Format : [place] Weight, Pounds : 200 lb Clinical Dosing Weight : 90.91 kg Body Surface Area (BSA) : 1.85 m2 Body Mass Index : 40.5 kg/m2 (>HHI) [place] Body Weight (IBW) : 42.87 kg LAWRENCE YING RN - 11/02/2019 23:18 EDT Pain Assessment Pain Scale Used : 0-10 Scale Location : Chest, left Quality : Aching LAWRENCE YING RN - 11/02/2019 23:18 EDT Pain Scale Intensity : 8 LAWRENCE YING RN - 11/02/2019 23:18 EDT Image 4 - Images currently included in the form version of this document have not been included in the text rendition version of the form. ED Influenza/Pneumoccocal Vaccine Influenza Immunization, Current Season : Yes Previous Vaccines from Immunization Schedule : No qualifying data available. LAWRENCE YING RN - 11/02/2019 23:18 EDT documented in this encounter Plan of Treatment Not on file documented as of this encounter Visit Diagnoses Not on filedocumented in this encounter Care Teams Medical Records Coordinator Relationship Specialty Start Date End Date Igor Meyers MD [address] [place] [address] PCP - General Family Medicine 11/23/22 08/22/23 Provider, Not In System, CHRISTIAN SALAZAR PCP - General 08/23/23 08/27/24 [facility] Connection, [facility] [place] [address] PCP - General 08/28/24 11/06/24 [facility], [facility] [place] [address] PCP - General 11/07/24 02/22/25 [facility], Provider Not In The System, [address] [place] [address] PCP - General 02/23/25 06/26/25 [facility], [facility] [place] [address] PCP - General 06/27/25 documented as of this encounter
--- OUTSIDE RECORDS SUMMARY | 2025-08-12 20:14 | XMS_ITS | Encounter Summary ---
Author Organization [employer] ([place], [place], [place], [place], [place]) Address [address] [place] [address] Care Team Providers Care Patrol Sergeant Sheriff'S Office Name Role Phone Igor Meyers MD Primary Care Provider [phone] Provider, Not In System DIRECTOR DANCE Primary Care Provid er Unavailable [facility] Connection, Find-A-Doc Primary Care Provider [facility], [facility]Doc Primary Care Provider [facility], Provider Not In The System Primary Care Provider Unavailable [facility] Connection, Find-A-Doc Primary Care Provider Encounter Details Date Type Department Care Team (Late st Contact Info) Description 04/12/2020 Transcribed Document [facility] [place] Medicine [facility] [place] [address] ProviderRufino MD [address] [place] [address] Social History Tobacco Use Types [...] Rufino ProviderMD - 04/12/2020 10:15 PM CDT ED Assessment Entered On: 04/13/2020 1:02 EDT Performed On: 04/13/2020 0:58 EDT by Divina Lucas RN ED General-Functional Assess Information Obtained From : Patient Preferred Communication Mode : Verbal Communication Barrier : None Primary Language : Tunisian Any Spiritual/Cultural Needs or Requests : No Currently in Unsafe Situation : No Divina Lucas RN - 04/13/2020 0:58 EDT Social Habits Smoking Status : Never (less than 100 in lifetime; none in last 30 days) Smokeless Tobacco Status : Never Desires Tobacco Cessation Calc : 0 Divina Lucas RN - 04/13/2020 0:58 EDT Social History (As Of: 04/13/2020 01:02:35 EDT) Tobacco: Smoking Status Never smoker. (Last [...] RN) EENT Assessment EENT Assessment WDL : WDDivina Powers RN - 04/13/2020 0:58 EDT Cardiovascular ASMT, ED Cardiovascular Assessment WDL : WDL with exceptions (Comment: pt c/o of chest pain that started 1 hour before she called EMS. pt states that she took two nitro from home with no relief. EMS gave pt 324 of aspirin which she also felt no relief from. pt P/W/D on arrival to ED. no signs of distress at this time. [Divina Lucas RN - 04/13/2020 0:58 EDT] ) Divina Lucas RN - 04/13/2020 0:58 EDT Gastrointestinal ED Gastrointestinal Assessment WDL : WDL Divina Lucas RN - 04/13/2020 0:58 EDT Genitourinary Assessment, ED Genitourinary Assessment WDL : Divina Newton RN - 04/13/2020 0:58 EDT Musculoskeletal Musculoskeletal Assessment WDL : Divina Newton RN - 04/13/2020 0:58 EDT Integumentary Assessment Integumentary Assessment WDL : Divina Newton RN - 04/13/2020 0:58 EDT Neurologic ASMT, ED Neurologic Assessment WDL : Divina Newton RN - 04/13/2020 0:58 EDT Electronically signed by Alphonse [facility] Conversion Cargo Bracer Cerner at 12/10/2022 6:37 PM CDT documented in this encounter Plan of Treatment Not on file documented as of this encounter Visit Diagnoses Not on filedocumented in this encounter Care Teams Patrol Sergeant Sheriff'S Office Relationship Specialty Start Date End Date Igor Meyers MD [address] [place] [address] PCP - General Family Medicine 11/23/22 08/22/23 Provider, Not In System, CHRISTIAN SALAZAR PCP - General 08/23/23 08/27/24 [facility] Connection, Find-A-Doc [facility] Find-a-Doc [place], [place] [id number] PCP - General 08/28/24 11/06/24 [facility] Connection, Find[facility]A-Doc [facility] Find-a-Doc [place], [place] [id number] PCP - General 11/07/24 02/22/25 [facility], Provider Not In The System, [place] [address] PCP - General 02/23/25 06/26/25 [facility] Connection, Find-A-Doc [facility] Find-a-Doc [place], [place] [id number] PCP - General 06/27/25 documented as of this encounter
--- OUTSIDE RECORDS SUMMARY | 2025-08-12 20:14 | XMS_ITS | Encounter Summary ---
Author Organization [employer] ([place], [place], [place], [place], [place]) Address [address] [place] [address] Care Team Providers Care Pc Analyst Name Role Phone Igor Meyers MD Primary Care Provider [phone] Provider, Not In System REST ROOM MAID Primary Care Provid er Unavailable [facility] Connection, Find-A-Doc Primary Care Provider [facility], Find[facility]A-Doc Primary Care Provider [facility], Provider Not In The System Primary Care Provider Unavailable [facility] Connection, Find-A-Doc Primary Care Provider Encounter Details Date Type Department Care Team (Late st Contact Info) Description 03/19/2020 Transcribed Document [facility] [place] [facility] [address] ProviderRufino MD [address] [place] [address] Social History Tobacco Use Types [...] Rufino ProviderMD - 03/19/2020 10:36 AM CDT [place] Suicide Severity Rating Scale (C-SSRS) Entered On: 03/19/2020 12:30 EDT Performed On: 03/19/2020 12:12 EDT by Craolyne Allen, DENZEL [place] Suicide Severity Rating Scale (C-SSRS) CSSRS Past Month Wish to be : No CSSRS Past Month Suicidal Thoughts : No CSSRS Lifetime Suicide Behavior : No Suicide Severity Rating Score : 0 Suicide Severity Rating : No Additional Care Required at this time Carolyne Allen, RN - 03/19/2020 12:12 EDT Electronically signed by [facility] Conversion Industrial Safety Engineer Cerner at 12/10/2022 6:45 PM CDT documented in this encounter Plan of Treatment Not on file documented as of this encounter Visit Diagnoses Not on filedocumented in this encounter Care Teams Pc Analyst Relationship Specialty Start Date End Date Igor Meyers MD [address] [place] [address] PCP - General Family Medicine 11/23/22 08/22/23 Provider, Not In System, CHRISTIAN SALAZAR PCP - General 08/23/23 08/27/24 [facility] Connection, Find-A-Doc [facility] Find-a-Doc [place], [place] [id number] PCP - General 08/28/24 11/06/24 [facility] Connection, Find[facility]A-Doc [facility] Find-a-Doc [place], [place] [id number] PCP - General 11/07/24 02/22/25 [facility], Provider Not In The System, [place] [address] PCP - General 02/23/25 06/26/25 [facility] Connection, Find-A-Doc [facility] Find-a-Doc [place], [place] [id number] PCP - General 06/27/25 documented as of this encounter
--- OUTSIDE RECORDS SUMMARY | 2025-08-12 20:14 | XMS_ITS | Encounter Summary ---
Author Organization [employer] ([place], [place], [place], [place], [place]) Address [address] [place] [address] Care Team Providers Care Decorator Inspector Name Role Phone Igor Meyers MD Primary Care Provider [phone] Provider, Not In System PAINT PREP TECHNICIAN Primary Care Provid er Unavailable [facility] Connection, Find-A-Doc Primary Care Provider [facility], Find-A-Doc Primary Care Provider [facility], Provider Not In The System Primary Care Provider Unavailable [facility] Connection, Find-A-Doc Primary Care Provider Encounter Details Date Type Department Care Team (Late st Contact Info) Description 04/13/2020 Transcribed Document [facility] [place] Family Medicine [address] [place] [address] ProviderRufino MD [address] [place] [address] Social History Tobacco Use Types [...] Historical ProviderMD - 04/13/2020 9:49 AM CDT Therapy Screen, PT Entered On: 04/13/2020 9:50 EDT Performed On: 04/13/2020 9:49 EDT by DOLORES ROBLES PT Therapy Screen, PT Medical Chart Reviewed : Yes Person Providing Information : Patient Screen Completed : Yes Recommendation for Evaluation, PT : None Recommendations Upon Discharge : None Additional Therapy Screen Comment : Pt is independent with all functional tasks and does not require skilled PT in the hospital. Will sign-off from PT. DOLORES ROBLES, PT - 04/13/2020 9:49 EDT Electronically signed by [facility] Conversion Brass Wind Instrument Maker Cerner at 12/10/2022 6:27 PM CDT documented in this encounter Plan of Treatment Not on file documented as of this encounter Visit Diagnoses Not on filedocumented in this encounter Care Teams Decorator Inspector Relationship Specialty Start Date End Date Igor Meyers MD [address] [place] [address] PCP - General Family Medicine 11/23/22 08/22/23 Provider, Not In System, CHRISTIAN SALAZAR PCP - General 08/23/23 08/27/24 [facility] Connection, Find[facility]A-Doc [facility] [place] [address] PCP - General 08/28/24 11/06/24 [facility] Connection, Find[facility]A-Doc [facility] [place] [address] PCP - General 11/07/24 02/22/25 [facility], Provider Not In The System, [place] [address] PCP - General 02/23/25 06/26/25 [facility] Connection, Find-A-Doc [facility] Find-a-Doc [place], [place] [id number] PCP - General 06/27/25 documented as of this encounter
--- OUTSIDE RECORDS SUMMARY | 2025-08-12 20:14 | XMS_ITS | Encounter Summary ---
Author Organization [employer] ([place], [place], [place], [place], [place]) Address [address] [place] [address] Care Team Providers Care Denture Laboratory Technician Name Role Phone Igor Meyers MD Primary Care Provider [phone] Provider, Not In System TRAFFIC SIGNAL TECHNICIAN Primary Care Provid er Unavailable [facility] Connection, Find-A-Doc Primary Care Provider [facility], Find-A-Doc Primary Care Provider [facility], Provider Not In The System Primary Care Provider Unavailable [facility] Connection, Find-A-Doc Primary Care Provider Encounter Details Date Type Department Care Team (Late st Contact Info) Description 11/03/2019 Transcribed Document [facility] [place] [facility] [place] [address] ProviderRufino MD [address] [place] [address] Social History Tobacco Use Types Packs/Day Years Used Date Smoking Tobacco: Never Assessed Comments Unknown Sex and Gender Information Value Date Recorded Sex Assigned at Not on file Legal Sex Female 1:33 PM CDT Gender Identity Not on file Sexual Orientation Not on file documented as of this encounter Miscellaneous Notes * Cerner Conversion Note - Historical ProviderMD - 11/03/2019 9:15 PM CDT Patient: ROBERTO RANDLE Age: 59 years Sex: Female : 1960 Associated Diagnoses: Chest wall pain; Diabetes Author: MARVIN ORTIZ MD-EMR Basic Information Additional information: Chief Complaint from Nursing Triage Note : Chief Complaint 11/03/2019 20:47 EDT Chief Complaint pt co Left sided chest pain that worsened since being seen yesterday for same symptoms. Pt reports feeling SOA with NV. Pt is calm alert skinpwd. Pt took x 2 nitro SL with no relief. 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 +nausea/Dirrhea x 1 week; no vomiting; had 2 NTG SL homicide squad captain; - no help at all; EKG done in triage @ 2243; +dizziness; (Modified) . History of Present Illness The patient presents with chest pain. The onset was 2 days ago. The course/duration of symptoms is was fluctuating, now constant since yesterday. Location: Generalized left anterior. Radiating pain: left arm. The character of symptoms is heaviness and tightness. The degree at onset was minimal. The degree at maximum was severe. The degree at present is severe. The exacerbating factor is none. The relieving factor is none. Risk factors consist of coronary artery disease, hypertension, diabetes mellitus and obesity. Prior episodes: cardiac. Therapy today Nitroglycerin. Associated symptoms: nausea, vomiting, anxiety, denies shortness of breath and denies palpitations. Review of Systems Constitutional symptoms: No fever, no chills. Skin symptoms: No rash, Eye symptoms: Negative except as documented in HPI. ENMT symptoms: Negative except as documented in HPI. Respiratory symptoms: No shortness of breath, Cardiovascular symptoms: Negative except as documented in HPI. Gastrointestinal symptoms: Nausea, vomiting, diarrhea, states has vomited 4x today, No abdominal pain, Genitourinary symptoms: Negative except as documented in HPI. Musculoskeletal symptoms: Negative except as documented in HPI. Neurologic symptoms: Negative except as documented in HPI. Psychiatric symptoms: Anxiety. Additional review of systems information: All other [...] 62.5 mcg/inh inhalation powder: 62.5 mcg, Inhalation, [id number] Nitrostat 0.4 mg sublingual tablet: 1 Tab, [...] constipation fluticasone 50 mcg/inh nasal spray: 1 [place], Nasal, Daily, in each nostril, 16 Gram, 0 Refill(s) gabapentin: 600 mg, Oral, TID, 0 Refill(s) glyBURIDE: 5 mg, Oral, Daily, 0 Refill(s) loratadine 10 mg oral tablet: 1 Tab, Oral, Daily, 0 Refill(s) meloxicam 7.5 mg oral tablet: 1 Tab, Oral, Daily, 0 Refill(s) metformin: 1,000 mg, Oral, BID, 0 Refill(s) topiramate: 100 mg, Oral, At Bedtime, 0 Refill(s), NOTE: ANTICOAGULATED on xarelto. 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 hysterectomy. tubal. Cholecystectomy; (13548). Multiple brain surgeries. Heart surgery as child.. [...] Tobacco 08/12/2014 Smoking Status Never smoker . Problem list: Active Problems (10) Apnea, sleep Chronic CHF COPD (chronic obstructive pulmonary disease) with emphysema Diabetes Genital herpes History of obstructive sleep apnea HTN (hypertension) Hydrocephalus Hyperlipemia Myocardial infarction . Physical Examination Vital Signs Vital Signs/Vital Measures 11/03/2019 20:47 EDT Systolic Blood Pressure 158 mmHg HI Diastolic Blood Pressure 74 mmHg Temperature Source Tympanic Temperature Mode Fahrenheit Temperature, Fahrenheit 98.5 Deg F Clinical Temperature, C 36.9 Deg C Peripheral Pulse Rate 75 bpm Respiratory Rate 18 Breaths/Min Oxygen Saturation 96 % Oxygen Therapy Mode Room air 11/02/2019 22:43 EDT Blood Pressure Location Arm, right upper Blood Pressure Source Non-Invasive BP Device Systolic Blood Pressure 128 mmHg Diastolic Blood Pressure 77 mmHg Temperature Source Oral Temperature Mode Fahrenheit Temperature, Fahrenheit 98.2 Deg F Clinical Temperature, C 36.8 Deg C Peripheral Pulse Rate 74 bpm Respiratory Rate 20 Breaths/Min Oxygen Saturation 97 % Oxygen Therapy Mode Room air . Measurements 11/03/2019 20:47 EDT Height Source Measured Height Entry Format [place] Height/Length, [place]TH KORE[place] (ft) 4 ft Height/Length [place]ORE[place] 11 Inch CLINICALHEIGHT 149.86 cm [place] Body Weight 42.87 kg Weight Source, ED Standing scale Weight Entry Format [place] Weight [place] lb 190 lb CLINICALWEIGHT 86.36 kg Body Surface Area (BSA) 1.81 m2 Body Mass Index 38.5 kg/m2 HI 11/02/2019 22:43 EDT Height Source Measured Height Entry Format [place] Height/Length, [place]ORE[place] (ft) 4 ft Height/Length [place] 11 Inch CLINICALHEIGHT 149.86 cm [place] Body Weight 42.87 kg Weight Source, ED Standing scale Weight Entry Format [place] Weight [place] lb 200 lb CLINICALWEIGHT 90.91 kg Body Surface Area (BSA) 1.85 m2 Body Mass Index 40.5 kg/m2 >HHI . Oxygen Saturation 11/03/2019 20:47 EDT Oxygen Saturation 96 % 11/02/2019 22:43 EDT Oxygen Saturation 97 % . General: Alert, no acute distress, Not ill-appearing, Skin: Warm, dry, no rash. Head: Normocephalic, atraumatic. Neck: Supple. Eye: Pupils are equal, round and reactive to light, normal conjunctiva. Ears, nose, mouth and throat: Oral mucosa moist, no pharyngeal erythema or exudate. Cardiovascular: Regular rate and rhythm, Normal peripheral perfusion, No edema. Respiratory: Lungs are clear to auscultation, respirations are non-labored, breath sounds are equal, Symmetrical chest wall expansion. Chest wall: + tender L upper chest wall. Musculoskeletal: Normal ROM, normal strength, no tenderness, no swelling, no deformity, pulses +. Gastrointestinal: Soft, Nontender, Non distended, Normal bowel sounds. Neurological: Alert and oriented to person, place, time, and situation, No focal neurological deficit observed. Psychiatric: Cooperative, Mood and affect: Anxious. Medical Decision Making Documents reviewed: Emergency department nurses' notes, emergency department records. Orders Place New Orders Pharmacy: [facility] mg-325 mg oral tablet (Order): 1 Tab, Oral, 1-Time Zofran ODT (Order): 8 mg, Oral, 1-Time. Electrocardiogram: Rate 69, normal sinus rhythm, no STEMI, no acute ischemia, chronic ST abn no sig change. Results review: Lab results : Lab Results 11/03/2019 21:24 EDT CRP <0.3 mg/dL Sed Rate Auto 15 mm/Hr 11/03/2019 21:00 EDT Sodium Level 135 mmol/L LOW Potassium Level 4.1 mmol/L Chloride Level 104 mmol/L Carbon Dioxide Level 24 mmol/L Anion Gap 11 Glucose Level 236 mg/dL HI Blood Urea Nitrogen 17 mg/dL Creatinine Level 0.59 mg/dL eGFR >60 mL/min/1.73m2 eGFR NonAfrican >60 mL/min/1.73m2 Bun/Creatinine 28.8 HI Calcium Level 9.5 mg/dL Protein Total 7.3 Gram/dL Albumin Level 3.6 Gram/dL Globulin 3.7 Gram/dL A/G Ratio 1.0 LOW Bilirubin Total 0.3 mg/dL Alk Phos 72 Units/Liter AST 12 Units/Liter ALT 25 Units/Liter Troponin I Ultra <0.015 ng/mL WBC 10.7 K/uL HI RBC 4.56 Million/uL Hgb 13.2 Gram/dL Hct 39.6 % MCV 86.8 fL MCH 28.9 pg MCHC 33.3 Gram/dL Platelet Count 261 K/uL MPV 10.1 fL RDW 13.6 % Neut % 62.9 % Neut # 6.75 K/uL HI Lymph % 28.8 % Lymph # 3.09 K/uL Scott % 5.6 % Scott # 0.60 K/uL Eos % 1.6 % Eos # 0.17 K/uL Baso % 0.4 % Baso # 0.04 K/uL Slide Review No IG# 0 x10(3)/uL IG% 1 % Urine Type. U CleanCatch Urine Color Yellow Urine Appearance Clear Urine Specific [place] 1.012 Urine pH Dipstick 5.0 LOW Urine Leukocyte Esterase Negative Urine Nitrite Negative Urine Protein Dipstick Negative Urine Glucose Dipstick 500 Urine Ketones Dipstick Negative Urine Urobilinogen Dipstick 0.2 EU/dL Urine Bilirubin Dipstick Negative Urine Blood Dipstick Negative Ur RBC 0-2 /HPF Ur WBC 0-2 /HPF Ur Bacteria Trace Ur Epithelial Cells 0-2 /HPF 11/03/2019 2:24 EDT Glucose POC2 98 mg/dL 11/03/2019 2:03 EDT Troponin I Ultra <0.015 ng/mL , Interpretation mildly elevated WBC on multiple prior visits. Reexamination/ Reevaluation I had told the patient to call Her assurance manager insurance today She said she did had no one answered the phone. I have told her to try again in the morning This pain does NOT sound cardiac. She reported some relief with the lortab I will send her home with a small script JADEN 20 scripts, but no narcs since July Impression and Plan Diagnosis Chest wall pain - Discharge, Emergency medicine, Medical Diabetes - Discharge, Emergency medicine, Medical Plan Condition: Improved. Disposition: Discharged Admit/Transfer/Discharge: Discharge (Order): Start: 11/04/2019 0:45 EDT, Discharge to: Home. Prescriptions: Prescription Design Engineering Technician Pharmacy: [facility] mg-325 mg oral tablet (Prescribe): 1 Tab, Oral, Q6H, for 3 Day(s), addictive, no driving, constipating, PRN: for pain, 12 Tab, 0 Refill(s). Patient was given the following educational materials: Chest Wall Pain. Follow up with: MARCELO PERDOMO Within 2 to 3 days; JED ROSALES Within 2 to 3 days Call your assurance manager insurance in the morning [phone] I do not feel that your heart is causing this pain, I believe it is musculoskeletal, but your assurance manager insurance can re-evaluate you and see if they feel they need to do more testing In the meantime, I have given you some Lortab. It is stronger then the lortab you used to get, so do NOT double the dose. . Counseled: Patient, Regarding diagnosis, Regarding diagnostic results, Regarding treatment plan, Regarding prescription, Patient indicated understanding of instructions. Electronically signed by Alphonse [facility] Conversion License Registration Examiner Cerner at 12/10/2022 6:46 PM CDT documented in this encounter Plan of Treatment Not on file documented as of this encounter Visit Diagnoses Not on filedocumented in this encounter Care Teams Denture Laboratory Technician Relationship Specialty Start Date End Date Igor Meyers MD [address] [place] [address] PCP - General Family Medicine 11/23/22 08/22/23 Provider, Not In System, CHRISTIAN SALAZAR PCP - General 08/23/23 08/27/24 [facility] Connection, Find-A-Doc [facility] Find-a-Doc [place], [place] [id number] PCP - General 08/28/24 11/06/24 [facility], Find-A-Doc [facility] Find-a-Doc [place], [place] [id number] PCP - General 11/07/24 02/22/25 [facility], Provider Not In The System, [address] [place] [address] PCP - General 02/23/25 06/26/25 [facility] Connection, Find-A-Doc [facility] Find-a-Doc [place], [place] [id number] PCP - General 06/27/25 documented as of this encounter
--- OUTSIDE RECORDS SUMMARY | 2025-08-12 20:14 | XMS_ITS | Encounter Summary ---
Author Organization [employer] ([place], [place], [place], [place], [place]) Address [address] [place] [address] Care Team Providers Care Self Propelled Dredge Operator Name Role Phone Igor Meyers MD Primary Care Provider [phone] Provider, Not In System REFRIGERATING OILER Primary Care Provid er Unavailable [facility] Connection, Find-A-Doc Primary Care Provider [facility], [facility]Doc Primary Care Provider [facility], Provider Not In The System Primary Care Provider Unavailable [facility] Connection, Find-A-Doc Primary Care Provider Encounter Details Date Type Department Care Team (Late st Contact Info) Description 08/12/2019 Transcribed Document [facility] [place] Family [place] [address] [place] [address] ProviderRufino MD [address] [place] [address] Social History Tobacco Use Types Packs/Day Years Used Date Smoking Tobacco: Never Assessed Comments Unknown Sex and Gender Information Value Date Recorded Sex Assigned at Not on file Legal Sex Female 1:33 PM CDT Gender Identity Not on file Sexual Orientation Not on file documented as of this encounter Miscellaneous Notes * Cerner Conversion Note - Historical ProviderMD - 08/12/2019 10:59 AM CLEAN ENERGY POLICY ANALYST CR Chest 1 Vw Portable Ordered: 08/11/2019 Modified Reason for Exam: left sided chest pain 08/12/2019 08:33 08/12/2019 10:59 (CHENG DYKES PA-C) Reviewed by Provider, No further action required x1 documented in this encounter Plan of Treatment Not on file documented as of this encounter Visit Diagnoses Not on filedocumented in this encounter Care Teams Self Propelled Dredge Operator Relationship Specialty Start Date End Date Igor Meyers MD [address] [place] [address] PCP - General Family Medicine 11/23/22 08/22/23 Provider, Not In System, CHRISTIAN SALAZAR PCP - General 08/23/23 08/27/24 [facility] Connection, Find-A-Doc [facility] [place] [address] PCP - General 08/28/24 11/06/24 [facility] Connection, Find-A-Doc [facility] [place] [address] PCP - General 11/07/24 02/22/25 [facility], Provider Not In The System, [address] [place] [address] PCP - General 02/23/25 06/26/25 [facility] Connection, Find-A-Doc [facility] [place] [address] PCP - General 06/27/25 documented as of this encounter
--- OUTSIDE RECORDS SUMMARY | 2025-08-12 20:14 | XMS_ITS | Encounter Summary ---
Author Organization [employer] ([place], [place], [place], [place], [place]) Address [address] [place] [address] Care Team Providers Care Production Maintenance Technician Name Role Phone Igor Meyers MD Primary Care Provider [phone] Provider, Not In System RADIOLOGY SERVICES MANAGER Primary Care Provid er Unavailable [facility], [facility] Primary Care Provider [facility], [facility] Primary Care Provider [facility], Provider Not In The System Primary Care Provider Unavailable [facility], [facility] Primary Care Provider Encounter Details Date Type Department Care Team (Late st Contact Info) Description 12/06/2019 Transcribed Document [facility] [place] [address] ProviderRufino MD [address] [place] [address] Social History Tobacco Use Types Packs/Day Years Used Date Smoking Tobacco: Never Assessed Comments Unknown Sex and Gender Information Value Date Recorded Sex Assigned at Not on file Legal Sex Female 1:33 PM CDT Gender Identity Not on file Sexual Orientation Not on file documented as of this encounter Miscellaneous Notes * Cerner Conversion Note - Historical ProviderMD - 12/06/2019 4:20 AM CDT Admission History, Adult Entered On: 12/06/2019 4:50 EDT Performed On: 12/06/2019 4:50 EDT by Barb Barrientos RN Advance Directive Patient has Advance Directive *Q : Yes, Advance Directive not with the patient Advance Directive Type : Living will Copy Advance Directive Verified/on Chart : No Barb Barrientos RN - 12/06/2019 4:46 EDT Anesthesia/Transfusion History Family History of Anesthesia Reaction : No prior transfusion(s) Transfusion History : Prior anesthesia without reaction Family History of Anesthesia Reaction : None Barb Barrientos RN - 12/06/2019 4:46 EDT Anticipated Discharge Needs Discharge To, Anticipated : Home Anticipated Discharge Needs at This Time : None Barb Barrientos RN - 12/06/2019 4:46 EDT Education Topics, Admission Orientation DCP GENERIC CODE Advance Directives : Verbalizes understanding Allergy Band Applied : Verbalizes understanding Assessment/Vital Signs : Verbalizes understanding Bed Control : Verbalizes understanding Call Light : Verbalizes understanding Confidentiality : Verbalizes understanding Diet/Room Service : Verbalizes understanding Fall Prevention : Verbalizes understanding Hand Hygiene : Verbalizes understanding Healthcare Provider Visit : Verbalizes understanding ID Band Applied : Verbalizes understanding Isolation Precautions : Verbalizes understanding Orientation to Room/Bathroom : Verbalizes understanding Patient Bill of Rights : Verbalizes understanding Patient Rights/Responsibilities : Verbalizes understanding Patient Safety : Verbalizes understanding Personal Privacy Code : Verbalizes understanding Rapid Response Initiated by Patient/Family : Verbalizes understanding Rounding : Verbalizes understanding Siderails use/risks : Verbalizes understanding Skin Precautions : Verbalizes understanding Smoking Policy : Verbalizes understanding Telemetry Monitoring : Verbalizes understanding Television/Phone : Verbalizes understanding Visiting Policy : Verbalizes understanding Barb Barrientos RN - 12/06/2019 4:46 EDT Functional Assessment Living Situation : Home Current Home Treatments : Blood glucose monitoring, CPAP Barb Barrientos RN - 12/06/2019 4:46 EDT General Info Preferred Name : Almaz Peralta Family/Rep/Phys Notified of Admit : No Emergency Contact #1 : Travon Giang Emergency Contact #1 Phone Number : [phone] Emergency Contact #1 Relationship : Brother Emergency Contact #2 : NA Emergency Contact #2 Phone Number : NA Emergency Contact #2 Relationship : NA Primary Language : Cook Islander Preferred Communication Mode : Verbal Communication Barrier : None Barb Barrientos RN - 12/06/2019 4:46 EDT Fall Risk Scales ABCs Fall Injury Risk Identification : None HUBBARD Hx Falls Immediate/Within 3 Months : No Hubbard Secondary Diagnosis : No HUBBARD Use of Ambulatory Aid : None HUBBARD IV Therapy or IV Access : Yes [place] Gait/Transferring : Weak [place] Mental Status : Oriented to own ability [place] Fall Risk Score : 30 HUBBARD Fall Scale Risk Level : 25-45 Medium Risk [place] Fall Interventions : Adequate lighting, Assistive devices within reach, Bed in low position, Call device within reach, Fall prevention handout/education per facility policy, Frequent orientation to call device, Frequent orientation to surroundings, Hourly comfort/safety rounds, Non-slip footwear, Personal items within reach, Reinforced to call for assistance before getting out of bed, Room free of clutter/spills, Upper side-rails up, Wheels locked, Wires/Cords secured Barb Barrientos RN - 12/06/2019 4:46 EDT Health Histories Smoking Status : Never (less than 100 in lifetime; none in last 30 days) Smokeless Tobacco Status : Never Barb Barrientos RN - 12/06/2019 4:46 EDT Social History (As Of: 12/06/2019 04:50:36 EDT) Tobacco: Smoking Status Never smoker. (Last [...] Source : Stated Height Entry Format : [place] Height, Feet : 4 ft(Converted to: 122 cm, 48 Inch) Height, Inches : 11 Inch(Converted to: 0 ft 11 Inch, 27.94 cm) Clinical Height : 149.86 cm Weight Source : Standing scale Weight Entry Format : [place] Clinical Dosing Weight : 88.38 kg Weight, Pounds : 194 lb Weight, Ounces : 7 oz Body Surface Area (BSA) : 1.82 m2 Body Mass Index : 39.4 kg/m2 (HI) [place] Body Weight : 43 kg Barb Barrientos RN - 12/06/2019 4:46 EDT Infectious Disease History COVID19 Screening : No Experiencing Infectious Disease Symptoms : No symptoms Physical contact outside US in the last 30 days : No Infectious Disease History : Chicken pox/Shingles, Herpes, Measles, Mumps Tuberculosis Symptoms : None Barb Barrientos RN - 12/06/2019 4:46 EDT Tetanus Immunization Status Previous Tetanus Immunizations : No qualifying data available. Tetanus Immunization : Greater than 5 years Barb Barrientos RN - 12/06/2019 4:46 EDT Influenza Vaccine Asmt, Adult Previous Vaccines from Immunization Schedule : No qualifying data available. Influenza Immunization, Current Season : Yes Barb Barrientos RN - 12/06/2019 4:46 EDT Pneumococcal Vaccine Previous Vaccines from Immunization Schedule : No qualifying data available. Pneumonia Immunization Received : Yes Barb Barrientos RN - 12/06/2019 4:46 EDT Order Details Transport Mode Order Detail : Wheelchair Isolation Precautions Order Detail : Standard Precautions Order Detail : 0 IV Order Detail : 1 Oxygen Order Detail : 0 Nurse Collect Order Detail : 0 Lift/Transfer : Moderate assist Central Line Order Detail : No Room Service : Not Appropriate Arterial Line : No Barb Barrientos RN - 12/06/2019 4:46 EDT Nutrition History Adaptive Feeding Equipment : Diabetic, Low cholesterol Eating Poorly Due to Decreased Appetite : No Unplanned Weight Loss in Past 3-6 Months : No Malnutrition Screening Tool Total(mal) : 0 Malnutrition Screening Tool Risk Level : Patient not at risk Barb Barrientos RN - 12/06/2019 4:46 EDT Rich Suicide Severity Rating Scale (C-SSRS) CSSRS Past Month Wish to be : No CSSRS Past Month Suicidal Thoughts : No CSSRS Lifetime Suicide Behavior : No Suicide Severity Rating Score : 0 Suicide Severity Rating : No Additional Care Required at this time Barb Barrientos RN - 12/06/2019 4:46 EDT Psychosocial History Do You Have a History of the Following? : Anxiety, Depression Currently in Unsafe Situation : No Barb Barrientos RN - 12/06/2019 4:46 EDT Sleep Apnea Risk Assmt BiPAP/CPAP Ordered for Home Use : Yes Hx of Obstructive Sleep Apnea Diagnosis : Yes BiPAP/CPAP Used at Home : Yes Age over 50 Years Old : Yes Gender Male : No Barb Barrientos RN - 12/06/2019 4:46 EDT Valuables and Belongings Valuables and Belongings : Clothing, Personal devices, Personal items, No comfort items, No jewelry, No assistive devices, No respiratory devices, No medications Clothing : Common streetwear Clothing Disposition : With patient, Declines to send to security/safe Personal Device Disposition : With patient, Declines to send to security/safe Personal Devices : Glasses Personal Items : Purse Personal Items Disposition : With patient, Declines to send to security/safe Barb Barrientos RN - 12/06/2019 4:46 EDT Electronically signed by Alphonse [facility] Conversion Director Imaging Cerner at 12/10/2022 6:37 PM CDT documented in this encounter Plan of Treatment Not on file documented as of this encounter Visit Diagnoses Not on filedocumented in this encounter Care Teams Production Maintenance Technician Relationship Specialty Start Date End Date Igor Meyers MD [address] [place] [id number] PCP - General Family Medicine 11/23/22 08/22/23 Provider, Not In System, CHRISTIAN SALAZAR PCP - General 08/23/23 08/27/24 [facility], [facility] [place], [place] [id number] PCP - General 08/28/24 11/06/24 [facility], [facility] [place], [place] [id number] PCP - General 11/07/24 02/22/25 [facility], Provider Not In The System, [place] [address] PCP - General 02/23/25 06/26/25 [facility], [facility] [place], [place] [id number] PCP - General 06/27/25 documented as of this encounter
--- OUTSIDE RECORDS SUMMARY | 2025-08-12 20:14 | XMS_ITS | Encounter Summary ---
Author Organization [employer] ([place], [place], [place], [place], [place]) Address [address] [place] [address] Care Team Providers Care Production Team Manager Name Role Phone Igor Meyers MD Primary Care Provider [phone] Provider, Not In System CLINICAL SOCIAL WORKER Primary Care Provid er Unavailable [facility], [facility]Doc Primary Care Provider [facility] Primary Care Provider [facility], Provider Not In The System Primary Care Provider Unavailable [facility], [facility]Doc Primary Care Provider Encounter Details Date Type Department Care Team (Late st Contact Info) Description 04/12/2020 Transcribed Document [facility] Family Medicine [address] [place] [address] ProviderRufino MD [address] [place] [address] Social History Tobacco Use Types [...] ProviderMD - 04/12/2020 10:15 PM CDT ED Triage Entered On: 04/12/2020 22:31 EDT Performed On: 04/12/2020 22:27 EDT by Divina Lucas RN ED Triage Across the Room Chief Complaint : pt to ED via EMS from home with chest pain that started two hours ago. Took 2 nitro at home with no relief. EMS gave 324 ASA. pt states pain 10/10 Triage Date/Time : 04/12/2020 22:27 EDT Divina Lucas RN - 04/12/2020 22:27 EDT DCP GENERIC CODE Tracking Acuity : 2 - Emergent Tracking Group : [facility] Divina Lucas RN - 04/12/2020 22:27 EDT Mode of Arrival : Stretcher Transported to ED by : Ambulance/ALS EMS Service : [facility] To Room Via : Stretcher Accompanied By : onion farmer ED Vital Signs : Document Height & Weight : Document ED Allergies : Document ED Reason for Visit : Document Tetanus Immunization : Greater than 5 years Divian Lucas RN - 04/12/2020 22:27 EDT Infectious Disease History Has the patient ever been tested for COVID-19? : No, Patient stated Does patient have symptoms of COVID-19? : No COVID19 Screening : No Experiencing Infectious Disease Symptoms : No symptoms Physical contact outside [place] in the last 30 days : No Infectious Disease History : Chicken pox/Shingles, Herpes, Measles, Mumps Tuberculosis Symptoms : None Divina Lucas RN - 04/12/2020 22:27 EDT Vital Signs ED Temperature Source : Oral Temperature Mode : Fahrenheit Temperature, Fahrenheit : 97.6 Deg F ED Pain : Yes Clinical Temperature, C : 36.4 Deg C Oxygen Therapy Mode : Room air Peripheral Pulse Rate : 70 bpm Respiratory Rate : 18 Breaths/Min Systolic Blood Pressure : 127 mmHg Diastolic Blood Pressure : 77 mmHg Oxygen Saturation : 93 % (LOW) Divina Lucas RN - 04/12/2020 22:27 EDT Allergy (As Of: 04/12/2020 22:31:14 EDT) Allergies (Active) ibuprofen Estimated Onset Date: Unspecified ; Created By: Divina Lucas RN; Reaction Status: Active ; Category: Drug ; Substance: ibuprofen ; Type: Allergy ; Updated By: Divina Lucas RN; Reviewed Date: 04/12/2020 22:30 EDT sulfADIAZINE Estimated Onset Date: Unspecified ; Reactions: itching, C/O: a swelling ; Created By: Barb Barrientos RN; Reaction Status: Active ; Category: Drug ; Substance: sulfADIAZINE ; Type: Allergy ; Severity: Severe ; Updated By: Barb Barrientos RN; Reviewed Date: 04/12/2020 22:30 EDT sulfonamides Estimated Onset Date: Unspecified ; Reactions: Rash, Itching ; Created By: Diana Michel, Pharmacist-Resident; Reaction Status: Active ; Category: Drug ; Substance: sulfonamides ; Type: Allergy ; Severity: Moderate ; Updated By: Diana Michel, Pharmacist-Resident; Source: Patient ; Reviewed Date: 04/12/2020 22:30 EDT Diagnosis Control ED (As Of: 04/12/2020 22:31:14 EDT) Problems(Active) Apnea, sleep (SNOMED CT :146646916 ) Name of Problem: Apnea, sleep ; Recorder: Sheryl Burnett RN; Confirmation: Confirmed ; Classification: Patient Stated ; Code: [id number] ; Contributor System: [email or web address] ; Last Updated: 08/12/2014 20:25 EST ; Life Cycle Date: 08/12/2014 ; Life Cycle Status: Active ; Vocabulary: SNOMED CT Chronic CHF (SNOMED CT :667396162 ) Name of Problem: Chronic CHF ; Recorder: Sheryl Burnett RN; Confirmation: Confirmed ; Classification: Patient Stated ; Code: [id number] ; Contributor System: Radish SystemsChart ; Last Updated: 08/12/2014 20:25 EST ; Life Cycle Date: 08/12/2014 ; Life Cycle Status: Active ; Vocabulary: SNOMED CT COPD (chronic obstructive pulmonary disease) with emphysema (SNOMED CT :408207798 ) Name of Problem: COPD (chronic obstructive pulmonary disease) with emphysema ; Recorder: Sheryl Burnett RN; Confirmation: Confirmed ; Classification: Patient Stated ; Code: [id number] ; Contributor System: Radish SystemsChart ; Last Updated: 08/12/2014 20:25 EST ; Life Cycle Date: 08/12/2014 ; Life Cycle Status: Active ; Vocabulary: SNOMED CT Diabetes (SNOMED CT :878766280 ) Name of Problem: Diabetes ; Recorder: Sheryl Burnett RN; Confirmation: Confirmed ; Classification: Patient Stated ; Code: [id number] ; Contributor System: [email or web address] ; Last Updated: 08/12/2014 20:24 EST ; Life Cycle Date: 08/12/2014 ; Life Cycle Status: Active ; Vocabulary: SNOMED CT Genital herpes (SNOMED CT :83427643 ) Name of Problem: Genital herpes ; Recorder: Sheryl Burnett RN; Confirmation: Confirmed ; Classification: Patient Stated ; Code: 73798595 ; Contributor System: PowerChart ; Last Updated: 08/12/2014 20:25 EST ; Life Cycle Date: 08/12/2014 ; Life Cycle Status: Active ; Vocabulary: SNOMED CT History of obstructive sleep apnea (IMO :56257282 ) Name of Problem: History of obstructive sleep apnea ; Recorder: SYSTEM, SYSTEM; Confirmation: Confirmed ; Classification: Medical ; Code: [id number] ; Last Updated: 03/07/2018 10:59 EDT ; Life Cycle Date: 03/07/2018 ; Life Cycle Status: Active ; Vocabulary: IMO HTN (hypertension) (SNOMED CT :0501663737 ) Name of Problem: HTN (hypertension) ; Recorder: Sheryl Burnett RN; Confirmation: Confirmed ; Classification: Patient Stated ; Code: [id number] ; Contributor System: Radish SystemsChart ; Last Updated: 08/12/2014 20:24 EST ; Life Cycle Date: 08/12/2014 ; Life Cycle Status: Active ; Vocabulary: SNOMED CT Hydrocephalus (SNOMED CT :965998185 ) Name of Problem: Hydrocephalus ; Recorder: Sheryl Burnett RN; Confirmation: Confirmed ; Classification: Patient Stated ; Code: 431298503 ; Contributor System: PowerChart ; Last Updated: 08/12/2014 20:24 EST ; Life Cycle Date: 08/12/2014 ; Life Cycle Status: Active ; Vocabulary: SNOMED CT Hyperlipemia (SNOMED CT :25320654 ) Name of Problem: Hyperlipemia ; Recorder: Sheryl Burnett RN; Confirmation: Confirmed ; Classification: Patient Stated ; Code: 44041746 ; Contributor System: PowerChart ; Last Updated: 08/12/2014 20:24 EST ; Life Cycle Date: 08/12/2014 ; Life Cycle Status: Active ; Vocabulary: SNOMED CT Myocardial infarction (SNOMED CT :45606037 ) Name of Problem: Myocardial infarction ; Recorder: Sheryl Burnett RN; Confirmation: Confirmed ; Classification: Patient Stated ; Code: 24180552 ; Contributor System: PowerChart ; Last Updated: 08/12/2014 20:25 EST ; Life Cycle Date: 08/12/2014 ; Life Cycle Status: Active ; Vocabulary: SNOMED CT Diagnoses(Active) Chest pain Date: 04/12/2020 ; Diagnosis Type: Reason For Visit ; Confirmation: Complaint of ; Clinical Dx: Chest pain ; Classification: Medical ; Clinical Service: Non-Specified ; Code: PNED ; Probability: 0 ; Diagnosis Code: [id number] ED Height and Weight Height Source : Stated Height Entry Format : [place] Height, Feet : 4 ft(Converted to: 122 cm, 48 Inch) Height, Inches : 11 Inch(Converted to: 0 ft 11 Inch, 27.94 cm) Clinical Height : 149.86 cm Weight Source, ED : Critical estimated dosing weight Weight Entry Format : [place] Weight, Pounds : 190 lb Clinical Dosing Weight : 86.36 kg Body Surface Area (BSA) : 1.81 m2 Body Mass Index : 38.5 kg/m2 (HI) [place] Body Weight (IBW) : 42.87 kg Divina Lucas RN - 04/12/2020 22:27 EDT Pain Assessment Pain Assessment : Initial assessment Pain Scale Used : 0-10 Scale Location : Chest Divina Lucas RN - 04/12/2020 22:27 EDT Pain Scale Intensity : 10 Divina Lucas RN - 04/12/2020 22:27 EDT Image 4 - Images currently included in the form version of this document have not been included in the text rendition version of the form. documented in this encounter Plan of Treatment Not on file documented as of this encounter Visit Diagnoses Not on filedocumented in this encounter Care Teams Production Team Manager Relationship Specialty Start Date End Date Igor Meyers MD [address] [place] [address] PCP - General Family Medicine 11/23/22 08/22/23 Provider, Not In System, CHRISTIAN SALAZAR PCP - General 08/23/23 08/27/24 [facility], [facility]-A-Doc [facility] [place] [address] PCP - General 08/28/24 11/06/24 [facility], [facility] [place] [address] 06 PCP - General 11/07/24 02/22/25 [facility], Provider Not In The System, [place] [address] PCP - General 02/23/25 06/26/25 [facility] Connection, [facility]Doc [facility] [place] [address] PCP - General 06/27/25 documented as of this encounter
--- OUTSIDE RECORDS SUMMARY | 2025-08-12 20:14 | XMS_ITS | Encounter Summary ---
Author Organization [employer] ([place], [place], [place], [place], [place]) Address [address] [place] [address] Care Team Providers Care Assault Amphibious Vehicle Officer Name Role Phone Igor Meyers MD Primary Care Provider [phone] Provider, Not In System HOG RINGER Primary Care Provid er Unavailable [facility], [facility] Primary Care Provider [facility], [facility], Provider Not In The System Primary Care Provider Unavailable [facility], [facility] Primary Care Provider Encounter Details Date Type Department Care Team (Late st Contact Info) Description 10/02/2019 Transcribed Document [facility] [place] Family Medicine [facility] [place] [address] ProviderRufino MD [address] [place] [address] Social History Tobacco Use Types Packs/Day Years Used Date Smoking Tobacco: Never Assessed Comments Unknown Sex and Gender Information Value Date Recorded Sex Assigned at Not on file Legal Sex Female 1:33 PM CDT Gender Identity Not on file Sexual Orientation Not on file documented as of this encounter Miscellaneous Notes * Cerner Conversion Note - Historical ProviderMD - 10/02/2019 4:51 PM MANAGED CARE ANALYST Patient: ROBERTO RANDLE Age: 59 years Sex: Female : 1960 Associated Diagnoses: Atypical chest pain; Elevated blood pressure reading; Hyperglycemia Author: REGINALD KEENAN PA-EMR Basic Information Additional information: Chief Complaint from Nursing Triage Note : Chief Complaint 10/02/2019 12:32 EST Chief Complaint pt c/o left sided chest pain radiating down left arm since 1000 this am. pt took 4 81mg aspirin and 2 nitro. . History of Present Illness The patient presents with chest pain. The onset was 4.5 hours ago. The course/duration of symptoms is fluctuating in intensity. Location: Substernal chest. Radiating pain: left arm. The character of symptoms is tightness, pressure and achy. The degree at onset was minimal. The degree at maximum was moderate. The degree at present is minimal. The exacerbating factor is none. The relieving factor is none. Risk factors consist of hypertension, diabetes mellitus and obesity. Prior episodes: none. Therapy today None. Associated symptoms: none. Ms. Randle is a 59-year-old female that presents to the emergency department via EMS she tells me she developed substernal chest pain radiating to her left arm approximately 8 AM this morning got worse around 10 she took aspirin and 2 nitroglycerin pain continued called EMS to bring her to the emergency department states this is just like previous episodes of chest pain she has a history of hypertension and recurrent chest pain which she is followed by cardiology at our facility she has undergone LHC in the past revealing normal coronaries; multiple CTAs that were negative, multiple workups that were unremarkable as well; she tells me the pain is same as in the past left-sided in nature it is reproducible and radiates to her left arm she does occasionally have shortness of breath predominantly worse with exertion; she does state she occasionally has nausea but has not been this episodes; denies diaphoresis; the chest discomfort is nonexertional in nature she tells me episodic in nature that lasts approximately 10-20 minutes she will have 2-5 of these events daily and they resolved spontaneous she has had these over the last 2 weeks has seen cardiology - she is anticoagulated on rivaroxaban. Review of Systems Constitutional symptoms: Negative except as documented in HPI. Skin symptoms: Negative except as documented in HPI. Eye symptoms: Negative except as documented in HPI. ENMT symptoms: Negative except as documented in HPI. Respiratory symptoms: Negative except as documented in HPI. Cardiovascular symptoms: Chest pain, central, tightness, pressure, achy. Gastrointestinal symptoms: Negative except as documented in HPI. Genitourinary symptoms: Negative except as documented in HPI. Musculoskeletal symptoms: Negative except as documented in HPI. Neurologic symptoms: Negative except as documented in HPI. Psychiatric symptoms: Negative except as documented in HPI. Endocrine symptoms: Negative except as documented in HPI. Hematologic/Lymphatic symptoms: Negative except as documented in HPI. Allergy/immunologic symptoms: Negative except as documented in HPI. Additional review of systems information: All other systems reviewed and otherwise negative. Health Status Allergies: Allergic Reactions (Selected) Severe SulfADIAZINE- Itching. Moderate Sulfonamides- Itching and rash.. Medications: (Selected) Inpatient Medications Ordered Nitro-Bid 2% transdermal ointment: 1 Inch, Topical, 1-Time Prescriptions Prescribed Lidoderm 5% topical film: 1 [...] 62.5 mcg/inh inhalation powder: 62.5 mcg, Inhalation, [id number] Nitrostat 0.4 mg sublingual tablet: 1 Tab, [...] constipation fluticasone 50 mcg/inh nasal spray: 1 [place], Nasal, Daily, in each nostril, 16 Gram, 0 Refill(s) gabapentin: 600 mg, Oral, TID, 0 Refill(s) glyBURIDE: 5 mg, Oral, Daily, 0 Refill(s) loratadine 10 mg oral tablet: 1 Tab, Oral, Daily, 0 Refill(s) meloxicam 7.5 mg oral tablet: 1 Tab, Oral, Daily, 0 Refill(s) metformin: 1,000 mg, Oral, BID, 0 Refill(s) topiramate: 100 mg, Oral, At Bedtime, 0 Refill(s), per nurse's notes. Immunizations: Up to date. Past Medical/ Family/ Social History Medical history Reviewed as documented in chart. 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 Cholecystectomy; (22636). Multiple brain surgeries. Heart surgery as child., [...] Reviewed as documented in chart. Problem list: Per nurse's notes. Physical Examination Vital Signs Vital Signs/Vital Measures 10/02/2019 14:30 EST Systolic Blood Pressure 102 mmHg Diastolic Blood Pressure 59 mmHg LOW Mean Arterial Pressure (MAP)-BMDI 77 Heart Rate Monitored 67 bpm Respiratory Rate 16 Breaths/Min Oxygen Saturation 94 % Oxygen Therapy Mode Room air 10/02/2019 14:00 EST Systolic Blood Pressure 114 mmHg Diastolic Blood Pressure 72 mmHg Mean Arterial Pressure (MAP)-BMDI 87 Heart Rate Monitored 70 bpm Respiratory Rate 16 Breaths/Min Oxygen Saturation 96 % Oxygen Therapy Mode Room air 10/02/2019 12:32 EST Systolic Blood Pressure 144 mmHg HI Diastolic Blood Pressure 73 mmHg Temperature Source Oral Temperature Mode Fahrenheit Temperature, Fahrenheit 98.4 Deg F Clinical Temperature, C 36.9 Deg C Peripheral Pulse Rate 83 bpm Respiratory Rate 18 Breaths/Min Oxygen Saturation 98 % Oxygen Therapy Mode Room air . Measurements 10/02/2019 12:32 EST Height Source Stated Height Entry Format [place] Height/Length, TANZANIAN (ft) 4 ft Height/Length TANZANIAN 11 Inch CLINICALHEIGHT 149.86 cm [place] Body Weight 42.87 kg Weight Source, ED Standing scale Weight Entry Format [place] Weight German lb 195 lb CLINICALWEIGHT 88.64 kg Body Surface Area (BSA) 1.83 m2 Body Mass Index 39.5 kg/m2 HI . Oxygen Saturation 10/02/2019 14:30 EST Oxygen Saturation 94 % 10/02/2019 14:00 EST Oxygen Saturation 96 % 10/02/2019 12:32 EST Oxygen Saturation 98 % . General: Alert, no acute distress, non-toxic appearence, looks comfortable sitting in bed-very pleasent, Not ill-appearing, Skin: Warm. Head: Normocephalic. Neck: Supple, trachea midline, no JVD. Eye: Normal conjunctiva. Ears, nose, mouth and throat: Oral mucosa moist. Cardiovascular: Regular rate and rhythm, No murmur, Normal peripheral perfusion, No edema. Respiratory: Lungs are clear to auscultation, respirations are non-labored, breath sounds are equal, Symmetrical chest wall expansion. Gastrointestinal: Soft, Nontender, Non distended, Normal bowel sounds. Back: Nontender, Normal range of motion, Normal alignment, no step-offs. Musculoskeletal: Normal ROM, normal strength, no tenderness. Neurological: Alert and oriented to person, place, time, and situation, No focal neurological deficit observed. Lymphatics: No lymphadenopathy. Psychiatric: Cooperative, appropriate mood & affect. Medical Decision Making Differential Diagnosis: Angina, atypical chest pain, pleurisy, chest wall pain. Documents reviewed: Emergency department nurses' notes, emergency department records, prior records. Electrocardiogram: Normal sinus rhythm, No ST changes, no ectopy, normal WV & QRS intervals. Results review: Lab results : Lab Results 10/02/2019 15:54 EST Troponin I Ultra <0.015 ng/mL 10/02/2019 12:57 EST Sodium Level 138 mmol/L Potassium Level 4.6 mmol/L Chloride Level 107 mmol/L Carbon Dioxide Level 25 mmol/L Anion Gap 11 Glucose Level 167 mg/dL HI Blood Urea Nitrogen 11 mg/dL Creatinine Level 0.55 mg/dL eGFR >60 mL/min/1.73m2 eGFR NonAfrican >60 mL/min/1.73m2 Bun/Creatinine 20.0 Calcium Level 9.5 mg/dL Protein Total 6.9 Gram/dL Albumin Level 3.2 Gram/dL LOW Globulin 3.7 Gram/dL A/G Ratio 0.9 LOW Bilirubin Total 0.5 mg/dL Alk Phos 84 Units/Liter AST 29 Units/Liter ALT 28 Units/Liter Magnesium Level 1.7 mg/dL Lipase Level 122 Units/Liter Troponin I Ultra <0.015 ng/mL ProBNP 19 pg/mL WBC 12.8 K/uL HI RBC 5.15 Million/uL Hgb 15.2 Gram/dL Hct 45.4 % HI MCV 88.2 fL MCH 29.5 pg MCHC 33.5 Gram/dL Platelet Count 243 K/uL MPV 12.3 fL RDW 14.1 % Neut % 63.5 % Neut # 8.12 K/uL HI Lymph % 27.4 % Lymph # 3.51 K/uL Benzie % 6.2 % Benzie # 0.79 K/uL Eos % 1.5 % Eos # 0.19 K/uL Baso % 0.6 % Baso # 0.08 K/uL Slide Review No IG# 0 x10(3)/uL IG% 1 % PT 10.3 Second(s) INR 1.0 . Radiology results: X-ray, reveals no acute disease process. Reexamination/ Reevaluation Notes: given exam/vitals/labs/EKG/cxr are all stable; troponin negative x2 - likely noncardiac in nature; HEART score 3 low risk; unclear what was causing her discomfort could be and likely is musculoskeletal in nature; she is safe to go home and follow-up with primary care in 1-2 days; and her helper maintenance cleaning instructed to call for appointment; I then discussed diagnosis and treatment plan and she states understands and agrees with all; she was given explicit instructions on return precautions if symptoms worsen or any further concerns return to the emergency department or nearest emergency department; also noted have elevated blood pressure emergency this could be an indication of pre-hypertension or hypertension will have follow-up primary care for five-day blood pressure check and further treatment if needed - prior to her being discharged I spoke with her helper maintenance cleaning ELLIE Valencia who states she has been seen by them multiple times and is clean coronaries on left heart catheter and that this is just like prior episodes were Unremarkable She Is Safe to Go Home Follow-Up with Him in the Office. Impression and Plan Diagnosis Atypical chest pain - Discharge, Emergency medicine, Medical Elevated blood pressure reading - Discharge, Emergency medicine, Medical Hyperglycemia - Discharge, Medical Plan Condition: Improved, Stable. Disposition: Medically cleared. Patient was given the following educational materials: Atypical Chest Pain ([id number]). Follow up with: ; JED ROSALES Within 2 to 3 days. Counseled: Patient, Pre-hypertension/Hypertension: The patient has been informed that they may have pre-hypertension or Hypertension based on a blood pressure reading in the emergency department. I recommend that the patient call the primary care provider listed on their discharge instructions or a physician of their choice this week to arrange follow up for further evaluation of possible pre-hypertension or Hypertension.. Electronically signed by [facility] Conversion Lunch Counter Manager Cerner at 12/10/2022 6:38 PM CDT documented in this encounter Plan of Treatment Not on file documented as of this encounter Visit Diagnoses Not on filedocumented in this encounter Care Teams Assault Amphibious Vehicle Officer Relationship Specialty Start Date End Date Igor Meyers MD [address] [place] [address] PCP - General Family Medicine 11/23/22 08/22/23 Provider, Not In System, CHRISTIAN SALAZAR PCP - General 08/23/23 08/27/24 [facility], [facility] [place] [address] PCP - General 08/28/24 11/06/24 [facility], [facility] [place] [address] PCP - General 11/07/24 02/22/25 [facility], Provider Not In The System, [place] [address] PCP - General 02/23/25 06/26/25 [facility], [facility] [place] [address] PCP - General 06/27/25 documented as of this encounter
--- OUTSIDE RECORDS SUMMARY | 2025-08-12 20:18 | XMS_ITS | Encounter Summary ---
Author Organization [employer] ([place], [place], [place], [place], [place]) Address [address] [place] [address] Care Team Providers Care Electroencephalographic Technician Name Role Phone Igor Meyers MD Primary Care Provider [phone] Provider, Not In System POSTPARTUM NURSE Primary Care Provid er Unavailable [facility], [facility]Doc Primary Care Provider [facility] Primary Care Provider [facility], Provider Not In The System Primary Care Provider Unavailable [facility], [facility]Doc Primary Care Provider Encounter Details Date Type Department Care Team (Late st Contact Info) Description 12/06/2019 Transcribed Document [facility] [place] [address] [place] [address] ProviderRufino MD [address] [place] [address] Social History Tobacco Use Types Packs/Day Years Used Date Smoking Tobacco: Never Assessed Comments Unknown Sex and Gender Information Value Date Recorded Sex Assigned at Not on file Legal Sex Female 1:33 PM CDT Gender Identity Not on file Sexual Orientation Not on file documented as of this encounter Miscellaneous Notes * Cerner Conversion Note - Rufino ProviderMD - 12/06/2019 10:[address] [facility] OT Charges Entered On: 12/06/2019 10:11 EDT Performed On: 12/06/2019 10:11 EDT by OLIIVA TROY OTR/Carmelita Conrad OT Charges Screen For Network Support Engineer : 1 OLIVIA TROY OTR/Carmelita - 12/06/2019 10:11 EDT Electronically signed by Alphonse [facility] Conversion Management Scientist Cerner at 12/10/2022 6:40 PM CDT documented in this encounter Plan of Treatment Not on file documented as of this encounter Visit Diagnoses Not on filedocumented in this encounter Care Teams Electroencephalographic Technician Relationship Specialty Start Date End Date Igor Meyers MD [address] [place] [id number] PCP - General Family Medicine 11/23/22 08/22/23 Provider, Not In System, CHRISTIAN SALAZAR PCP - General 08/23/23 08/27/24 [facility], [facility]Doc [facility] [place] [address] PCP - General 08/28/24 11/06/24 [facility], [facility] [place] [address] PCP - General 11/07/24 02/22/25 [facility], Provider Not In The System, [place] [address] PCP - General 02/23/25 06/26/25 [facility], [facility] [place] [address] PCP - General 06/27/25 documented as of this encounter
--- OUTSIDE RECORDS SUMMARY | 2025-08-12 20:18 | XMS_ITS | Encounter Summary ---
Author Organization [employer] ([place], [place], [place], [place], [place]) Address [address] [place] [address] Care Team Providers Care Physical Education Instructor Name Role Phone Igor Meyers MD Primary Care Provider [phone] Provider, Not In System SERVICE COORDINATOR ELDERLY FACILITY Primary Care Provid er Unavailable [facility], [facility]-Doc Primary Care Provider [facility], [facility] Primary Care Provider [facility], Provider Not In The System Primary Care Provider Unavailable [facility], [facility]Doc Primary Care Provider Encounter Details Date Type Department Care Team (Late st Contact Info) Description 12/06/2019 Transcribed Document [facility] [place] Family Medicine [facility] [place] [address] ProviderRufino MD [address] [place] [address] Social History Tobacco Use Types Packs/Day Years Used Date Smoking Tobacco: Never Assessed Comments Unknown Sex and Gender Information Value Date Recorded Sex Assigned at Not on file Legal Sex Female 1:33 PM CDT Gender Identity Not on file Sexual Orientation Not on file documented as of this encounter Miscellaneous Notes * Cerner Conversion Note - Rufino ProviderMD - 12/06/2019 1:35 PM CDT Initial Discharge Planning Entered On: 12/06/2019 13:36 EDT Performed On: 12/06/2019 13:35 EDT by DENI BEAUCHAMP STUDENT SUCCESS COACH-BUILDING MAINTENANCE ENGINEER Initial Assessment I Enter Doctors Name : Igor Meyers Does Patient have PCP Listed? : Yes Previously Documented Living Environment : No qualifying data available. DENI BEAUCHAMP STUDENT SUCCESS COACH-BUILDING MAINTENANCE ENGINEER - 12/06/2019 13:38 EDT Living Situation : Home Patient Lives With : Alone Emergency Contact #1 : Travon Giang Emergency Contact #1 Phone Number : [phone] Emergency Contact #1 Relationship : Brother Emergency Contact #2 : NA Emergency Contact #2 Phone Number : ALEJANDRA Emergency Contact #2 Relationship : NA Medical Durable Power of Charm Filter Operator Helper Name : No Legal Guardian : No DENI BEAUCHAMP STUDENT SUCCESS COACH-BUILDING MAINTENANCE ENGINEER - 12/06/2019 13:35 EDT Initial Assessment II Sensory and Motor Deficits : None DENI BEAUCHAMP STUDENT SUCCESS COACH-BUILDING MAINTENANCE ENGINEER - 12/06/2019 13:35 EDT Discharge Needs I Anticipated Discharge Date : 12/06/2019 EDT Anticipated Discharge To, CM : Home independently Current Home Treatment/Equipment : Current Home Treatment/Equipment No qualifying data available. Documentation Status Complete : Yes DENI BEAUCHAMP STUDENT SUCCESS COACH-BUILDING MAINTENANCE ENGINEER - 12/06/2019 13:35 EDT Discharge Needs II Professional Skilled Services : Professional Skilled Services No qualifying data available. Needs Assistance with Transportation : No DENI BEAUCHAMP STUDENT SUCCESS COACH-BUILDING MAINTENANCE ENGINEER - 12/06/2019 13:35 EDT Narrative Note Narrative Note : Chart reviewed. Patient reported chest pain and SOA. In Obs and requesting to go home. No discharge needs identified at this time DENI BEAUCHAMP STUDENT SUCCESS COACH-BUILDING MAINTENANCE ENGINEER - 12/06/2019 13:37 EDT documented in this encounter Plan of Treatment Not on file documented as of this encounter Visit Diagnoses Not on filedocumented in this encounter Care Teams Physical Education Instructor Relationship Specialty Start Date End Date Igor Meyers MD [address] [place] [address] PCP - General Family Medicine 11/23/22 08/22/23 Provider, Not In System, CHRISTIAN SALAZAR PCP - General 08/23/23 08/27/24 [facility], Find-A-Doc [facility] [place] [address] PCP - General 08/28/24 11/06/24 [facility], Find-A-Doc [facility] [place] [address] PCP - General 11/07/24 02/22/25 [facility], Provider Not In The System, [place] [address] PCP - General 02/23/25 06/26/25 [facility], Find[facility]Doc [facility] [place] [address] PCP - General 06/27/25 documented as of this encounter
--- OUTSIDE RECORDS SUMMARY | 2025-08-12 20:18 | XMS_ITS | Encounter Summary ---
Author Organization [employer] ([place], [place], [place], [place], [place]) Address [address] [place] [address] Care Team Providers Care Security Compliance Engineer Name Role Phone Igor Meyers MD Primary Care Provider [phone] Provider, Not In System BOILER CONTROL TECHNICIAN Primary Care Provid er Unavailable [facility] Connection, [facility]Doc Primary Care Provider [facility], [facility] Primary Care Provider [facility], Provider Not In The System Primary Care Provider Unavailable [facility], [facility]A-Doc Primary Care Provider Encounter Details Date Type Department Care Team (Late st Contact Info) Description 12/06/2019 Transcribed Document [facility] [place] [facility] [place] [address] ProviderRufino MD [address] [place] [address] Social History Tobacco Use Types Packs/Day Years Used Date Smoking Tobacco: Never Assessed Comments Unknown Sex and Gender Information Value Date Recorded Sex Assigned at Not on file Legal Sex Female 1:33 PM CDT Gender Identity Not on file Sexual Orientation Not on file documented as of this encounter Miscellaneous Notes * Cerner Conversion Note - Rufino ProviderMD - 12/06/2019 12:13 PM CDT Stroke/Warfarin Instructions Entered On: 12/06/2019 12:13 EDT Performed On: 12/06/2019 12:13 EDT by Concepción Alejandro RN Stroke/Warfarin Instructions Stroke/TIA Discharge Ins : N/A Warfarin Discharge Ins : N/A Concepción Alejandro RN - 12/06/2019 12:13 EDT Electronically signed by Storm Cunha Conversion Cost And Sales Record Supervisor Cerner at 12/10/2022 6:28 PM CDT documented in this encounter Plan of Treatment Not on file documented as of this encounter Visit Diagnoses Not on filedocumented in this encounter Care Teams Security Compliance Engineer Relationship Specialty Start Date End Date Igor Meyers MD [address] [place] [address] PCP - General Family Medicine 11/23/22 08/22/23 Provider, Not In System, CHRISTIAN SALAZAR PCP - General 08/23/23 08/27/[address] [facility] Connection, [facility]Doc [facility] [place] [address] PCP - General 08/28/24 11/06/[address] [facility] Connection, Find-A-Doc [facility] [place] [address] PCP - General 11/07/24 02/22/[address] [facility], Provider Not In The System, [place] [address] PCP - General 02/23/25 06/26/[address] [facility] Connection, [facility]Doc [facility] [place] [address] PCP - General 06/27/25 documented as of this encounter
--- OUTSIDE RECORDS SUMMARY | 2025-08-12 20:18 | XMS_ITS | Encounter Summary ---
Author Organization [employer] ([place], [place], [place], [place], [place]) Address [address] [place] [address] Care Team Providers Care Client Application Support Engineer Name Role Phone Igor Hairston MD Primary Care Provider [phone] Provider, Not In System OPTICAL ENGINEERING MANAGER Primary Care Provid er Unavailable [facility], [facility] Primary Care Provider [facility], [facility] Primary [facility], Provider Not In The System Primary Care Provider Unavailable [facility], [facility] Primary Care Provider Encounter Details Date Type Department Care Team (Late st Contact Info) Description 12/06/2019 Transcribed Document [facility] [place] Family [place] [facility] [place] [address] ProviderRufino MD [address] [place] [address] Social History Tobacco Use Types Packs/Day Years Used Date Smoking Tobacco: Never Assessed Comments Unknown Sex and Gender Information Value Date Recorded Sex Assigned at Not on file Legal Sex Female 1:33 PM CDT Gender Identity Not on file Sexual Orientation Not on file documented as of this encounter Miscellaneous Notes * Cerner Conversion Note - Rufino ProviderMD - 12/06/2019 12:50 PM CDT [address] [address] RBOERTO RANDLE :1960 Visit Time:12/06/2019 Your Visit Summary Your Care Team Admitting Physician - EREMARIELA Villaseñor MD-CAR Attending Physician - MARIELA KEARNS MD-CAR Primary Care Physician - IGOR HAIRSTON (REF), JOSE Referring Physician - GULSHAN PERSON (REF), JAZLYN Your Diagnosis Chest pain, unspecified, Chest pain, unspecified Pleuritic chest pain Discharge Vitals Temperature 36.8 ??C Heart Rate (Monitored) 63 Respiratory Rate 16 Blood Pressure 117/59 What to do next Instructions From Your Care Team Discharge Diet: Discharge Diet: Heart healthy diet Follow-Up Appointments Follow Up with JED ROSALES When Within 2 weeks Comments Office to call with appoint/instructions Where: [address] [place] [address]- Business (1) Medications What How Much When Instructions Next Dose amLODIPine 5 Milligram(s) Oral Every Day tomorrow atorvastatin (atorvastatin 40 mg oral tablet) 1 Tablet(s) Oral Every Day tonight cholecalciferol (Vitamin D3) 2,000 International Units Oral Every Day tomorrow glyBURIDE 5 Milligram(s) Oral Every Day tomorrow metFORMIN (metformin) 1,000 Milligram(s) Oral Two Times A Day tonight multivitamin Every Day tomorrow nitroglycerin (Nitrostat 0.4 mg sublingual tablet) 1 Tablet(s) SubLINgual Every 5 minutes as needed for as needed for chest pain ranolazine (Ranexa 500 mg oral tablet, extended release) 1 Tablet(s) Oral Two Times A Day tonight rivaroxaban (Xarelto 10 mg oral tablet) 1 Tablet(s) Oral Every Day tomorrow SITagliptin (Januvia) 100 Milligram(s) Oral Every Day tomorrow traZODone (traZODone 100 mg oral tablet) 1 Tablet(s) Oral At Bedtime Take your medications faithfully. Do NOT skip [...] Itching) Immunizations This Visit No Immunizations Found Education Materials Shortness of Breath, Adult Shortness of breath means you have trouble breathing. Shortness of breath could be a sign of a medical problem. Follow these instructions at home: ??? Watch for any changes in your symptoms. ??? Do not use any products that contain nicotine or tobacco, such as cigarettes, e-cigarettes, and chewing tobacco. ??? Do not smoke. Smoking can cause shortness of breath. If you need help to quit smoking, ask your doctor. ??? Avoid things that can make it harder to breathe, such as: ? Mold. ? Dust. ? Air pollution. ? Chemical smells. ? Things that can cause allergy symptoms (allergens), if you have allergies. ??? Keep your living space clean. Use products that help remove mold and dust. ??? Rest as needed. Slowly return to your normal activities. ??? Take aklh-pia-fnlnsni and prescription medicines only as told by your doctor. This includes oxygen therapy and inhaled medicines. ??? Keep all follow-up visits as told by your doctor. This is important. Contact a doctor if: ??? Your condition does not get better as soon as expected. ??? You have a hard time doing your normal activities, even after you rest. ??? You have new symptoms. Get help right away if: ??? Your shortness of breath gets worse. ??? You have trouble breathing when you are resting. ??? You feel light-headed or you pass out (faint). ??? You have a cough that is not helped by medicines. ??? You cough up blood. ??? You have pain with breathing. ??? You have pain in your chest, arms, shoulders, or belly (abdomen). ??? You have a fever. ??? You cannot walk up stairs. ??? You cannot exercise the way you normally do. These symptoms may represent a serious problem that is an emergency. Do not wait to see if the symptoms will go away. Get medical help right away. Call your local emergency services (911 in the [place] Do not drive yourself to the hospital. Summary ??? Shortness of breath is when you have trouble breathing enough air. It can be a sign of a medical problem. ??? Avoid things that make it hard for you to breathe, such as smoking, pollution, mold, and dust. ??? Watch for any changes in your symptoms. Contact your doctor if you do not get better or you get worse. This information is not intended to replace advice given to you by your health care provider. Make sure you discuss any questions you have with your health care provider. Document Released: 01/29/2009 Document Revised: 01/13/2019 Document Reviewed: 01/13/2019 [employer] Patient Education ?? 2019 [employer] Nonspecific Chest Pain Chest pain can [...] you start to feel better. ??? Take vqfb-sin-zchqjwo and prescription medicines only as told by [...] 05/23/2006 Document Revised: 05/07/2017 Document Reviewed: 05/07/2017 [employer] Patient Education ?? 2019 [employer] Emergency Awareness and Preventative Care STROKE [...] Assistance with quitting is available by contacting 9-290-HBQR-NOW. This is a free resource providing counseling, [...] This Visit (last charted value for your 12/06/2019 visit) Hematology 12/06/2019 6:26 AM WBC: 11.9 K/uL -- Normal range between ( 3.9 and 10.0 ) RBC: 4.65 Million/uL -- Normal range between ( 3.93 and 5.22 ) Hct: 41.2 % -- Normal range between ( 34.1 and 44.9 ) Hgb: 13.5 Gram/dL -- Normal range between ( 11.2 and 15.7 ) Platelet Count: 225 K/uL -- Normal range between ( 163 and 369 ) MCH: 29.0 pg -- Normal range between ( 25.6 and 32.2 ) MCHC: 32.8 Gram/dL -- Normal range between ( 32.3 and 36.5 ) MCV: 88.6 fL -- Normal range between ( 79.0 and 94.8 ) Slide Review: No Eos %: 1.7 % -- Normal range between ( 1.0 and 7.0 ) Leon #: 0.79 K/uL -- Normal range between ( 0.24 and 0.82 ) Eos #: 0.20 K/uL -- Normal range between ( 0.04 and 0.54 ) Leon %: 6.6 % -- Normal range between ( 4.7 and 12.5 ) Baso %: 0.4 % -- Normal range between ( 0.0 and 1.0 ) Baso #: 0.05 K/uL -- Normal range between ( 0.01 and 0.08 ) RDW: 13.3 % -- Normal range between ( 11.6 and 14.4 ) Neut %: 51.6 % -- Normal range between ( 34.0 and 71.0 ) Neut #: 6.13 K/uL -- Normal range between ( 1.56 and 6.13 ) Lymph %: 38.6 % -- Normal range between ( 19.3 and 53.0 ) Lymph #: 4.58 K/uL -- Normal range between ( 1.18 and 3.74 ) MPV: 10.4 fL -- Normal range between ( 9.4 and 12.4 ) IG#: 0 x10(3)/uL IG%: 1 % -- Normal range between ( 0 and 1 ) General Chemistry 12/06/2019 6:26 AM Creatinine Level: 0.60 mg/dL -- Normal range between ( 0.55 and 1.02 ) Sodium Level: 137 mmol/L -- Normal range between ( 136 [...] ( 1.5 and 4.5 ) Alk Phos: 70 Units/Liter -- Normal range between ( 27 and 136 ) Bun/Creatinine: 25.0 -- Normal range between ( 8.0 and 20.0 ) Calcium Level: 9.7 mg/dL -- Normal range between ( 8.5 and 10.1 ) eGFR : >60 mL/min/1.73m2 eGFR NonAfrican: >60 mL/min/1.73m2 Glucose Level: 170 mg/dL -- Normal range between ( 74 and 106 ) Magnesium Level: 1.9 mg/dL -- Normal range between ( 1.5 and 2.4 ) Blood Urea Nitrogen: 15 mg/dL -- Normal range between ( 7 and 22 ) Protein Total: 6.8 Gram/dL -- Normal range between ( 6.4 and 8.2 ) Albumin Level: 3.5 Gram/dL -- Normal range between ( 3.4 and 5.0 ) Cardiac Specific Markers 12/06/2019 10:40 AM Troponin I Ultra: <0.015 ng/mL -- Normal range between ( 0.015 and 0.045 ) Endocrinology 12/06/2019 6:26 AM TSH: 1.800 mcInt Units/mL -- Normal range between ( 0.358 and 3.740 ) FT4: 0.93 ng/dL -- Normal range between ( 0.76 and 1.46 ) Patient Name:ROBERTO RANDLE I have received and understand this information and was given the opportunity to ask questions. Patient/Wholesale Loan Processor Name: Patient/Wholesale Loan Processor Signature: Relationship to Patient: Clinician/Hospital Wholesale Loan Processor Signature: Date: Electronically signed by Interface, [facility] Conversion Audio Visual Tech Cerner at 12/10/2022 6:51 PM CDT documented in this encounter Plan of Treatment Not on file documented as of this encounter Visit Diagnoses Not on filedocumented in this encounter Care Teams Client Application Support Engineer Relationship Specialty Start Date End Date Igor Hairston MD [address] [place] [address] PCP - General Family Medicine 11/23/22 08/22/23 Provider, Not In System, CHRISTIAN SALAZAR PCP - General 08/23/23 08/27/24 [facility], [facility] [place] [address] PCP - General 08/28/24 11/06/24 [facility], [facility] [place] [address] PCP - General 11/07/24 02/22/25 [facility], Provider Not In The System, [place] [address] PCP - General 02/23/25 06/26/25 [facility], [facility] [place] [address] PCP - General 06/27/25 documented as of this encounter
--- OUTSIDE RECORDS SUMMARY | 2025-08-12 20:18 | XMS_ITS | Encounter Summary ---
Author Organization [employer] ([place], [place], [place], [place], [place]) Address [address] [place] [address] Care Team Providers Care Softball Coach Name Role Phone Igor Meyers MD Primary Care Provider [phone] Provider, Not In System HEAD OF DESIGN Primary Care Provid er Unavailable [facility], [facility] Primary Care Provider [facility], [facility] Primary Care Provider [facility], Provider Not In The System Primary Care Provider Unavailable [facility], [facility] Primary Care Provider Encounter Details Date Type Department Care Team (Late st Contact Info) Description 11/09/2019 Transcribed Document [facility] [place] Family Medicine [facility] [place] [address] ProviderRufino MD [address] [place] [address] Social History Tobacco Use Types Packs/Day Years Used Date Smoking Tobacco: Never Assessed Comments Unknown Sex and Gender Information Value Date Recorded Sex Assigned at Not on file Legal Sex Female 1:33 PM CDT Gender Identity Not on file Sexual Orientation Not on file documented as of this encounter Miscellaneous Notes * Cerner Conversion Note - Rufino ProviderMD - 11/09/2019 10:32 PM CDT Pain Assessment Entered On: 11/09/2019 23:48 EDT Performed On: 11/09/2019 23:48 EDT by RAZ ADLER, RN Intervention Information: morphine Performed by RAZ ADLER, DENZEL on 11/09/2019 22:43:00 EDT morphine,2mg IV Push,Peripheral Line 1 Pain Assessment Pain Assessment : Follow-up assessment Pain Scale Used : 0-10 Scale RAZ ADLER RN - 11/09/2019 23:48 EDT Pain Scale Intensity : 4 RAZ ADLER RN - 11/09/2019 23:48 EDT Image 4 - Images currently included in the form version of this document have not been included in the text rendition version of the form. Electronically signed by Alphonse, [facility] Conversion Wax Molder Cerner at 12/10/2022 6:35 PM CDT documented in this encounter Plan of Treatment Not on file documented as of this encounter Visit Diagnoses Not on filedocumented in this encounter Care Teams Softball Coach Relationship Specialty Start Date End Date Igor Meyers MD [address] [place] [address] PCP - General Family Medicine 11/23/22 08/22/23 Provider, Not In System, CHRISTIAN SALAZAR PCP - General 08/23/23 08/27/24 [facility], [facility] [place], [place] [id number] PCP - General 08/28/24 11/06/24 [facility], [facility]-a-Doc [place], [place] [id number] PCP - General 11/07/24 02/22/25 [facility], Provider Not In The System, [place] [address] PCP - General 02/23/25 06/26/25 [facility], [facility]Doc [facility]-a[facility]Doc [place], [place] [id number] PCP - General 06/27/25 documented as of this encounter
--- OUTSIDE RECORDS SUMMARY | 2025-08-12 20:18 | XMS_ITS | Encounter Summary ---
Author Organization [employer] ([place], [place], [place], [place], [place]) Address [address] [place] [address] Care Team Providers Care Clinical Research Physician Name Role Phone Igor Meyers MD Primary Care Provider [phone] Provider, Not In System PIPE BOWL PAINT TRIMMER Primary Care Provid er Unavailable [facility], [facility] Primary Care Provider [facility], [facility] Primary Care Provider [facility], Provider Not In The System Primary Care Provider Unavailable [facility], [facility] Primary Care Provider Encounter Details Date Type Department Care Team (Late st Contact Info) Description 11/09/2019 Transcribed Document [facility] [place] [address] ProviderRufino MD [address] [place] [address] Social History Tobacco Use Types Packs/Day Years Used Date Smoking Tobacco: Never Assessed Comments Unknown Sex and Gender Information Value Date Recorded Sex Assigned at Not on file Legal Sex Female 1:33 PM CDT Gender Identity Not on file Sexual Orientation Not on file documented as of this encounter Miscellaneous Notes * Cerner Conversion Note - Historical ProviderMD - 11/09/2019 9:40 PM CDT [place] Suicide Severity Rating Scale (C-SSRS) Entered On: 11/09/2019 22:54 EDT Performed On: 11/09/2019 22:53 EDT by RAZ ADLER RN [place] Suicide Severity Rating Scale (C-SSRS) CSSRS Past Month Wish to be : No CSSRS Past Month Suicidal Thoughts : No CSSRS Lifetime Suicide Behavior : No Suicide Severity Rating Score : 0 Suicide Severity Rating : No Additional Care Required at this time RAZ ADLER, RN - 11/09/2019 22:53 EDT Electronically signed by Alphonse [facility] Conversion Digital Media Analyst Cerner at 12/10/2022 6:34 PM CDT documented in this encounter Plan of Treatment Not on file documented as of this encounter Visit Diagnoses Not on filedocumented in this encounter Care Teams Clinical Research Physician Relationship Specialty Start Date End Date Igor Meyers MD [address] [place], [place] [id number] PCP - General Family Medicine 11/23/22 08/22/23 Provider, Not In System, CHRISTIAN SALAZAR PCP - General 08/23/23 08/27/[address] [facility], Find[facility]A-Doc [facility] Find-a-Doc [place], [place] [id number] PCP - General 08/28/24 11/06/[address] [facility], [facility] Find-a-Doc [place], [place] [id number] PCP - General 11/07/24 02/22/[address] [facility], Provider Not In The System, [place] [address] PCP - General 02/23/25 06/26/[address] [facility], [facility] Find-a-Doc [place], [place] [id number] PCP - General 06/27/25 documented as of this encounter
--- OUTSIDE RECORDS SUMMARY | 2025-08-12 20:18 | XMS_ITS | Encounter Summary ---
Author Organization [employer] ([place], [place], [place], [place], [place]) Address [address] [place] [address] Care Team Providers Care Packager Head Name Role Phone Igor Meyers MD Primary Care Provider [phone] Provider, Not In System PUBLIC HEALTH AIDE Primary Care Provid er Unavailable [facility] Connection, Find-A-Doc Primary Care Provider [facility], [facility]Doc Primary Care Provider [facility], Provider Not In The System Primary Care Provider Unavailable [facility] Connection, Find-A-Doc Primary Care Provider Encounter Details Date Type Department Care Team (Late st Contact Info) Description 11/09/2019 Transcribed Document [facility] [place] Family Medicine [facility] [place] [address] ProviderRufino MD [address] [place] [address] Social History Tobacco Use Types Packs/Day Years Used Date Smoking Tobacco: Never Assessed Comments Unknown Sex and Gender Information Value Date Recorded Sex Assigned at Not on file Legal Sex Female 1:33 PM CDT Gender Identity Not on file Sexual Orientation Not on file documented as of this encounter Miscellaneous Notes * Cerner Conversion Note - Rufino ProviderMD - 11/09/2019 10:31 PM CDT Patient: ROBERTO RANDLE Age: 59 years Sex: Female : 1960 Associated Diagnoses: Headache; Diarrhea; Hydrocephalus Author: FRANTZ ALVARADO MD-EMR Basic Information Time seen: Date & time 11/09/2019 22:12:00. History source: Patient. Arrival mode: Private vehicle, walking. History limitation: None. Additional information: Chief Complaint from Nursing Triage Note : Chief Complaint 11/09/2019 21:47 EDT Chief Complaint diarrhea, chills, headache, body aches X 1 week . History of Present Illness The patient presents with diarrhea and headache. The onset was 1 weeks ago. The course/duration of symptoms is constant and fluctuating in intensity. The character is loose. The degree of symptoms is moderate. The exacerbating factor is none. The relieving factor is none. Risk factors consist of diabetes mellitus and history of hydrocephalus. Therapy today: see nurses notes. Associated symptoms: nausea, denies abdominal pain, denies vomiting, denies abdominal cramping, denies fever, denies chills and denies dizziness. patient complaining of having headache, body ache, diarrhea, chills, for last 1 week, complain ofo the bilateral diffuse headache,denies any visual symptoms denies any neck pain, denies any numbness, tingling or weakness, denies any blood in her stool, no history of trauma or injury. patient said she had history of hydrocephalus since , about giving was disconnected several years ago, was told that she does not need a BONE PULLER shunt, patient feels her headache is similar to when she used to have headache from hydrocephalus. Review of Systems Constitutional symptoms: Chills, no fever, no decreased activity. Skin symptoms: No rash, no pruritus, no silver, no petechiae, no lesion. Eye symptoms: No recent vision problems, no pain, no discharge. ENMT symptoms: No ear pain, no sore throat, no nasal congestion. Respiratory symptoms: No shortness of breath, no cough. Cardiovascular symptoms: No chest pain, no diaphoresis, no peripheral edema. Gastrointestinal symptoms: Nausea, vomiting, diarrhea, No abdominal pain, Genitourinary symptoms: No dysuria, no hematuria. Musculoskeletal symptoms: No back pain, no Muscle pain, no Joint pain. Neurologic symptoms: Headache, no dizziness, no altered level of consciousness, no numbness, no tingling, no weakness. Psychiatric symptoms: No anxiety, no depression. Endocrine symptoms: No polyuria, Hematologic/Lymphatic symptoms: Bleeding tendency negative, Allergy/immunologic symptoms: No seasonal allergies, Additional review of systems information: No recent travel or surgery. No Abx recently. No change in meds recently Denies IVDA No history of trauma or injury No other friend/contact/family member sick with similar symptoms Denies eating any culprit food -NO EXPOSURE TO POTENTIAL OR DIAGNOSED COVID-19 virus . Health Status Allergies: Allergic Reactions (Selected) [...] 62.5 mcg/inh inhalation powder: 62.5 mcg, Inhalation, [id number] Nitrostat 0.4 mg sublingual tablet: 1 Tab, [...] constipation fluticasone 50 mcg/inh nasal spray: 1 [place], Nasal, Daily, in each nostril, 16 Gram, [...] pulmonary disease, sleep apnea. Endocrine: diabetes. Neurological: Hydrocephalus. Surgical history: BONE PULLER Shunt. hysterectomy. tubal. Cholecystectomy; (41238). Multiple brain surgeries. Heart surgery as child., [...] Physical Examination Vital Signs Vital Signs/Vital Measures 11/09/2019 21:47 EDT Systolic Blood Pressure 159 mmHg HI Diastolic Blood Pressure 79 mmHg Temperature Source Oral Temperature Mode Fahrenheit Temperature, Fahrenheit 98.0 Deg F Clinical Temperature, C 36.7 Deg C Peripheral Pulse Rate 82 bpm Respiratory Rate 16 Breaths/Min Oxygen Saturation 96 % Oxygen Therapy Mode Room air . Measurements 11/09/2019 21:47 EDT Height Source Stated Height Entry Format [place] Height/Length, MAC[place]IAN (ft) 4 ft Height/Length MACEDONIAN 11 Inch CLINICALHEIGHT 149.86 cm [place] Body Weight 42.87 kg Weight Source, ED Standing scale Weight Entry Format [place] Weight [place] lb 190 lb CLINICALWEIGHT 86.36 kg Body Surface Area (BSA) 1.81 m2 Body Mass Index 38.5 kg/m2 HI . Oxygen Saturation 11/09/2019 21:47 EDT Oxygen Saturation 96 % . General: Alert, no acute distress. Skin: Warm, dry, pink, intact, no pallor, no rash, not cyanotic, not cool, not pale. Head: Normocephalic, atraumatic. Neck: Supple, no JVD. Eye: Pupils are equal, round and reactive [...] no deformity. Gastrointestinal: Soft, Nontender, Non distended, Guarding: Negative, Rebound: Negative, Bowel sounds: Normal, Organomegaly: Negative, Trauma: Negative, Mass: Negative, Signs: None. Neurological: Alert and oriented to person, place, time, and situation, No focal neurological deficit observed, CN II-XII intact, normal motor observed, normal speech observed, normal coordination observed. Lymphatics: No lymphadenopathy. Psychiatric: Cooperative, appropriate mood & affect, normal judgment. Medical Decision Making Differential Diagnosis: Diarrhea, dysentery, enteritis, viral syndrome, migraine, tension headache, hydrocephalus, temporal arteritis. Documents reviewed: Emergency department nurses' notes. Results review: Lab results : Lab Results 11/10/2019 1:12 EDT Sed Rate Auto 14 mm/Hr 11/09/2019 22:34 EDT Influenza A Negative Influenza B Negative 11/09/2019 22:33 EDT Sodium Level 136 mmol/L Potassium Level 4.3 mmol/L Chloride Level 103 mmol/L Carbon Dioxide Level 27 mmol/L Anion Gap 10 Glucose Level 133 mg/dL HI Blood Urea Nitrogen 11 mg/dL Creatinine Level 0.62 mg/dL eGFR >60 mL/min/1.73m2 eGFR NonAfrican >60 mL/min/1.73m2 Bun/Creatinine 17.7 Calcium Level 9.8 mg/dL Protein Total 7.4 Gram/dL Albumin Level 3.8 Gram/dL Globulin 3.6 Gram/dL A/G Ratio 1.1 Bilirubin Total 0.6 mg/dL Alk Phos 79 Units/Liter AST 20 Units/Liter ALT 28 Units/Liter Lipase Level 328 Units/Liter WBC 11.7 K/uL HI RBC 4.90 Million/uL Hgb 14.2 Gram/dL Hct 42.9 % MCV 87.6 fL MCH 29.0 pg MCHC 33.1 Gram/dL Platelet Count 276 K/uL MPV 10.1 fL RDW 13.3 % Neut % 62.5 % Neut # 7.29 K/uL HI Lymph % 30.1 % Lymph # 3.51 K/uL [place] % 4.7 % [place] # 0.55 K/uL Eos % 1.5 % Eos # 0.18 K/uL Baso % 0.5 % Baso # 0.06 K/uL Slide Review No IG# 0 x10(3)/uL IG% 1 % Urine Type U CleanCatch Urine Color Yellow Urine Appearance Clear Urine Specific [place] 1.026 Urine pH Dipstick 5.5 LOW Urine Leukocyte Esterase Negative Urine Nitrite Negative Urine Protein Dipstick Negative Urine Glucose Dipstick Negative Urine Ketones Dipstick Negative Urine Urobilinogen Dipstick 0.2 EU/dL Urine Bilirubin Dipstick Negative Urine Blood Dipstick Negative UDS pH 5.6 NA UDS Amp Negative UDS Mona Negative UDS Benzo Negative UDS Byron Negative UDS Meth Negative UDS Opi Negative UDS Oxy Negative UDS PCP Negative UDS TCA Negative UDS THC Negative Buprenorphine Screen, Urine Negative Carisoprodol Screen, Urine Negative Fentanyl, Urine Negative Heroin Metab (6AM) by LC-MS/MS, Urine Negative Meperidine Screen, Urine Negative Propoxyphene, Urine Negative SpGravity, Urine 1.022 NA Tramadol Screen, Urine Negative UDS Creatinine, Toxicology 99.5 mg/dL NA . Radiology results: Radiology Results (Last 48 hours) [id number] -- 11/09/2019 21:40 CT Head WO (11/09/2019 23:41) Result: HEAD CTHISTORY: Headache. History of hydrocephalus..TECHNIQUE: Multiple axial CT images were performed from the foramenmagnum to the vertex without contrast. This study was performed withtechniques to keep radiation doses as low as reasonably achievable,(ALARA). Individualized dose reduction techniques using automatedexposure control or adjustment of mA and/or kV according to the patientsize were employed.COMPARISON: None.FINDINGS: The ventricles are all moderately to severely dilated. A shunttubing enters and ends within the posterior aspect of the left lateralventricle. (The rest of the shunt does not evaluate this examination.).There is no mass or shift of midline structures. There is nointracranial hemorrhage. There is extra-axial calcification orossification in the left posterior parietal region just above the levelof the shunt. There is prominent dural calcification along the falx aswell. No significant sinus or osseous abnormality seen.IMPRESSION: Hydrocephalus with shunt tubing in place. . Reexamination/ Reevaluation Time: 11/10/2019 00:06:00 . Course: improving. Pain status: decreased. Assessment: exam unchanged. Time: 11/10/2019 02:37:00 . Course: improving. Assessment: exam unchanged. Notes: discussed with patient, her labs, her imaging results, differential diagnoses of her symptoms, concerned about hydrocephalus, patient is also worried about her hydrocephalus causing her headache, we do not have neurosurgery, patient wants to be transferred to where she was followed up in the past for her hydrocephalus and BONE PULLER shunt, explained risks and benefits of the transfer, patient agreed for the transfer. Impression and Plan Diagnosis Headache - Discharge, Emergency medicine, Medical Diarrhea - Discharge, Emergency medicine, Medical Hydrocephalus - Discharge, Emergency medicine, Medical Headache - Discharge, Emergency medicine, Medical Calls-Consults - 11/10/2019 02:58:00 , Dr. Sears neurosurgery , phone call, recommends agreed to accept pt for transfe to emergency department. Plan Condition: Stable. Disposition: Admit Admit/Transfer/Discharge: ED Transfer (Order): Start: 11/10/2019 3:22 EDT, For Headache, hydrocephalus, patient need to see her neurosurgeon, Unit Type: Telemetry Unit, Location Preference: Hospital: transfer. Counseled: Patient, Regarding diagnosis, Regarding diagnostic results, Regarding treatment plan, Regarding prescription, Patient indicated understanding of instructions. documented in this encounter Plan of Treatment Not on file documented as of this encounter Visit Diagnoses Not on filedocumented in this encounter Care Teams Packager Head Relationship Specialty Start Date End Date Igor Meyres MD [address] [place] [address] PCP - General Family Medicine 11/23/22 08/22/23 Provider, Not In System, CHRISTIAN SALAZAR PCP - General 08/23/23 08/27/24 [facility] Connection, Find-A-Doc [facility] [place] [address] PCP - General 08/28/24 11/06/24 [facility], Find-A-Doc [facility] [place] [address] PCP - General 11/07/24 02/22/25 [facility], Provider Not In The System, [place] [address] PCP - General 02/23/25 06/26/25 [facility], Find[facility]A-Doc [facility]-a-Doc [place], [place] [id number] PCP - General 06/27/25 documented as of this encounter
--- OUTSIDE RECORDS SUMMARY | 2025-08-12 20:18 | XMS_ITS | Encounter Summary ---
Author Organization [employer] ([place], [place], [place], [place], [place]) Address [address] [place] [address] Care Team Providers Care Hospitalist Medical Director Name Role Phone Igor Meyers MD Primary Care Provider [phone] Provider, Not In System PEDIATRIC NURSE PRACTITIONER Primary Care Provid er Unavailable [facility] Connection, Find-A-Doc Primary Care Provider [facility], [facility]Doc Primary Care Provider [facility], Provider Not In The System Primary Care Provider Unavailable [facility] Connection, Find[facility]A-Doc Primary Care Provider Encounter Details Date Type Department Care Team (Late st Contact Info) Description 12/06/[address] [facility] [place] Family [place] [facility] [place] [address] ProviderRufino MD [address] [place] [address] Social History Tobacco Use Types Packs/Day Years Used Date Smoking Tobacco: Never Assessed Comments Unknown Sex and Gender Information Value Date Recorded Sex Assigned at Not on file Legal Sex Female 1:33 PM CDT Gender Identity Not on file Sexual Orientation Not on file documented as of this encounter Miscellaneous Notes * Cerner Conversion Note - Rufino ProviderMD - 12/06/2019 1:47 PM CDT Final Discharge Planning Entered On: 12/06/2019 13:47 EDT Performed On: 12/06/2019 13:47 EDT by DENI BEAUCHAMP, NIGHT SHIFT-COMPRESSION MOLDING MACHINE TENDER Final Discharge Planning Discharge Arrangements : Patient Post-Acute Information Patient Name: ROBERTO RANDLE Gender: Female : [birth year] Age: 59 Years No Post-Acute Placement(s) Listed No Post-Acute Service(s) Listed No [place] Referral(s) Listed Discharge To Care Management : Home/Residential/Long-Term or Self Care -01 DENI BEAUCHAMP NIGHT SHIFT-COMPRESSION MOLDING MACHINE TENDER - 12/06/2019 13:47 EDT Electronically signed by Alphonse [facility] Conversion Butcher Or [employer]s Maker Cerner at 12/10/2022 6:39 PM CDT documented in this encounter Plan of Treatment Not on file documented as of this encounter Visit Diagnoses Not on filedocumented in this encounter Care Teams Hospitalist Medical Director Relationship Specialty Start Date End Date Igor Meyers MD [address] [place] [address] PCP - General Family Medicine 11/23/22 08/22/23 Provider, Not In System, CHRISTIAN SALAZAR PCP - General 08/23/23 08/27/24 [facility], Find-A-Doc [facility] Find-a-Doc [place], [place] [id number] PCP - General 08/28/24 11/06/24 [facility], Find-A-Doc [facility] Find-a-Doc [place], [place] [id number] PCP - General 11/07/24 02/22/25 [facility], Provider Not In The System, [place] [address] PCP - General 02/23/25 06/26/25 [facility], Find[facility]A-Doc [facility]-a-Doc [place], [place] [id number] PCP - General 06/27/25 documented as of this encounter
--- OUTSIDE RECORDS SUMMARY | 2025-08-12 20:18 | XMS_ITS | Encounter Summary ---
Author Organization [employer] ([place], [place], [place], [place], [place]) Address [address] [place] [address] Care Team Providers Care Tallow Pumper Name Role Phone Igor Meyers MD Primary Care Provider [phone] Provider, Not In System MANUAL TRAINING TEACHER Primary Care Provid er Unavailable [facility] Connection, Find-A-Doc Primary Care Provider [facility], [facility]Doc Primary Care Provider [facility], Provider Not In The System Primary Care Provider Unavailable [facility] Connection, Find-A-Doc Primary Care Provider Encounter Details Date Type Department Care Team (Late st Contact Info) Description 12/06/2019 Transcribed Document [facility] [place] [address] [place] [address] ProviderRufino MD [address] [place] [address] Social History Tobacco Use Types Packs/Day Years Used Date Smoking Tobacco: Never Assessed Comments Unknown Sex and Gender Information Value Date Recorded Sex Assigned at Not on file Legal Sex Female 1:33 PM CDT Gender Identity Not on file Sexual Orientation Not on file documented as of this encounter Miscellaneous Notes * Cerner Conversion Note - Historical ProviderMD - 12/06/2019 10:10 AM CDT Therapy Screen, OT Entered On: 12/06/2019 10:10 EDT Performed On: 12/06/2019 10:10 EDT by OLIVIA TROY OTR/Carmelita Therapy Screen, OT Medical Chart Reviewed : Yes Screen Completed : Yes Recommendations for Evaluation OT : Do not recommend Occupational Therapy evaluation Therapy Screen Findings, OT : Patient at functional baseline OLIVIA TROY, OTR/L - 12/06/2019 10:10 EDT Electronically signed by Alphonse, [facility] Conversion Concert Singer Cerner at 12/10/2022 6:26 PM CDT documented in this encounter Plan of Treatment Not on file documented as of this encounter Visit Diagnoses Not on filedocumented in this encounter Care Teams Tallow Pumper Relationship Specialty Start Date End Date Igor Meyers MD [address] [place] [address] PCP - General Family Medicine 11/23/22 08/22/23 Provider, Not In System, CHRISTIAN SALAZAR PCP - General 08/23/23 08/27/24 [facility] Connection, Find-A-Doc [facility] [place] [address] PCP - General 08/28/24 11/06/24 [facility] Connection, Find-A-Doc [facility] [place] [address] PCP - General 11/07/24 02/22/25 [facility], Provider Not In The System, [place] [address] PCP - General 02/23/25 06/26/25 [facility] Connection, Find-A-Doc [facility] [place] [address] PCP - General 06/27/25 documented as of this encounter
--- OUTSIDE RECORDS SUMMARY | 2025-08-12 20:18 | XMS_ITS | Encounter Summary ---
Author Organization [employer] ([place], [place], [place], [place], [place]) Address [address] [place] [address] Care Team Providers Care Bank Vault Custodian Name Role Phone Igor Meyers MD Primary Care Provider [phone] Provider, Not In System HAND I BLOCKER Primary Care Provid er Unavailable [facility], Find-A-Doc Primary Care Provider [facility], [facility] Primary Care Provider [facility], Provider Not In The System Primary Care Provider Unavailable [facility], Find-A-Doc Primary Care Provider Encounter Details Date Type Department Care Team (Late st Contact Info) Description 11/04/2019 Transcribed Document [facility] [place] Family Medicine [facility] [place] [address] ProviderRufino MD [address] [place] [address] Social History Tobacco Use Types Packs/Day Years Used Date Smoking Tobacco: Never Assessed Comments Unknown Sex and Gender Information Value Date Recorded Sex Assigned at Not on file Legal Sex Female 1:33 PM CDT Gender Identity Not on file Sexual Orientation Not on file documented as of this encounter Miscellaneous Notes * Cerner Conversion Note - Rufino ProviderMD - 11/04/2019 12:57 AM CDT [address] [address] ROBERTO RANDLE :1960 Visit Time:11/03/2019 Your Visit Summary Your Care Team Primary Provider: MARVIN ORTIZ Secondary Provider: Your Diagnosis Chest pain Chest wall pain Diabetes Medical Information You may obtain a copy [...] Within 2 to 3 days Comments Call your cognos tm1 developer in the morning [phone] I do not feel that your heart is causing this pain, I believe it is musculoskeletal, but your cognos tm1 developer can re-evaluate you and see if they feel they need to do more testing In the meantime, I have given you some Lortab. It is stronger then the lortab you used to get, so do NOT double the dose. Where: [address] [place] [address]- Business (1) Follow Up with UNKNOWN PHY When Within 2 to 3 days Allergies sulfADIAZINE (itching) sulfonamides (Rash, Itching) Immunizations This Visit No Immunizations Found Medications What How Much When Instructions Next Dose acetaminophen-hydrocodone (Mason 7.5 mg-325 mg oral tablet) 1 Tablet(s) Oral Every 6 Hours as needed for for pain Duration: 3 Day(s) addictive, no driving, constipating Printed Prescription albuterol (albuterol CFC free 90 mcg/ inh inhalation aerosol with adapter) 2 Puff(s) Inhalation Four Times A Day amLODIPine 5 Milligram(s) Oral Every Day carvedilol (carvedilol 12.5 mg oral tablet) 1 Tablet(s) Oral Two Times A Day diclofenac topical (diclofenac 1% topical gel) 4 Gram(s) Topical Four Times A Day as needed for for pain docusate (docusate sodium 100 mg oral tablet) 1 Tablet(s) Oral Two Times A Day as needed for as needed for constipation fluticasone nasal (fluticasone 50 mcg/ inh nasal spray) 1 Singer(s) Nasal Every Day in each nostril gabapentin 600 Milligram(s) Oral Three Times A Day glyBURIDE 5 Milligram(s) Oral Every Day insulin glargine (Basaglar KwikPen 100 units/ mL subcutaneous solution) 13 Unit(s) SubCutaneous At Bedtime lidocaine topical (Lidoderm 5% topical film) 1 Patch(es) TransDermal Every Day Duration: 10 Day(s) loratadine (loratadine 10 mg oral tablet) 1 Tablet(s) Oral Every Day meloxicam (meloxicam 7.5 mg oral tablet) 1 Tablet(s) Oral Every Day metFORMIN (metformin) 1,000 Milligram(s) Oral Two Times A Day nitroglycerin (Nitrostat 0.4 mg sublingual tablet) 1 Tablet(s) SubLINgual Every 5 minutes as needed for as needed for chest pain PRAVAstatin 20 Milligram(s) Oral Every Day predniSONE (predniSONE 10 mg oral tablet) See instructions 3 Tab mg Oral Daily for 1 days, 2 tabs for 1 days, then 1 tab for 2 days, taper over 6 days. ranolazine (Ranexa 500 mg oral tablet, extended release) 1 Tablet(s) Oral Two Times A Day rivaroxaban (Xarelto 10 mg oral tablet) 1 Tablet(s) Oral Every Day tiZANidine (tiZANidine 2 mg oral tablet) 1 Tablet(s) Oral Every 8 Hours as needed for as needed for muscle spasm topiramate 100 Milligram(s) Oral At Bedtime umeclidinium (Incruse Ellipta 62.5 mcg/ inh inhalation powder) 62.5 Microgram(s) Inhalation Interval Every 24 Hours The home medications listed are only as [...] This Visit (last charted value for your 11/03/2019 visit) Hematology 11/03/2019 9:24 PM Sed Rate Auto: 15 mm/Hr -- Normal range between ( 0 and 30 ) 11/03/2019 9:00 PM WBC: 10.7 K/uL -- Normal range between ( 3.9 and 10.0 ) RBC: 4.56 Million/uL -- Normal range between ( 3.93 and 5.22 ) Hct: 39.6 % -- Normal range between ( 34.1 and 44.9 ) Hgb: 13.2 Gram/dL -- Normal range between ( 11.2 [...] range between ( 1.0 and 7.0 ) O'Brien #: 0.60 K/uL -- Normal range between ( 0.24 and 0.82 ) Eos #: 0.17 K/uL -- Normal range between ( 0.04 and 0.54 ) O'Brien %: 5.6 % -- Normal range between ( 4.7 and 12.5 ) Baso %: 0.4 % -- Normal range between ( 0.0 and 1.0 ) Baso #: 0.04 K/uL -- Normal range between ( 0.01 and 0.08 ) RDW: 13.6 % -- Normal range between ( 11.6 and 14.4 ) Neut %: 62.9 % -- Normal range between ( 34.0 and 71.0 ) Neut #: 6.75 K/uL -- Normal range between ( 1.56 and 6.13 ) Lymph %: 28.8 % -- Normal range between ( 19.3 and 53.0 ) Lymph #: 3.09 K/uL -- Normal range between ( 1.18 and 3.74 ) MPV: 10.1 fL -- Normal range between ( 9.4 and 12.4 ) IG#: 0 x10(3)/uL IG%: 1 % -- Normal range between ( 0 and 1 ) Urinalysis 11/03/2019 9:00 PM Ur RBC: 0-2 /HPF Urine Nitrite: Negative Urine Leukocyte Esterase: Negative Ur Epithelial Cells: 0-2 /HPF Urine Appearance: Clear Urine Glucose Dipstick: 500 Urine Blood Dipstick: Negative Urine Urobilinogen Dipstick: 0.2 EU/dL -- Normal range between ( 0.2 and 1.0 ) Urine Protein Dipstick: Negative Ur Bacteria: Trace Urine Color: Yellow Ur WBC: 0-2 /HPF Urine Ketones Dipstick: Negative Urine pH Dipstick: 5.0 -- Normal range between ( 6.0 and 8.0 ) Urine Bilirubin Dipstick: Negative Urine Specific [place]: 1.012 -- Normal range between ( 1.005 and 1.030 ) Urine Type.: [facility] 11/03/2019 9:24 PM CRP: <0.3 mg/dL -- Normal range between ( 0.0 and 0.9 ) 11/03/2019 9:00 PM Creatinine Level: 0.59 mg/dL -- Normal range between ( 0.55 and 1.02 ) Sodium Level: 135 mmol/L -- Normal range between ( 136 [...] ( 1.5 and 4.5 ) Alk Phos: 72 Units/Liter -- Normal range between ( 27 and 136 ) Bun/Creatinine: 28.8 -- Normal range between ( 8.0 and 20.0 ) Calcium Level: 9.5 mg/dL -- Normal range between ( 8.5 and 10.1 ) eGFR : >60 mL/min/1.73m2 eGFR NonAfrican: >60 mL/min/1.73m2 Glucose Level: 236 mg/dL -- Normal range between ( 74 and 106 ) Blood Urea Nitrogen: 17 mg/dL -- Normal range between ( 7 and 22 ) Protein Total: 7.3 Gram/dL -- Normal range between ( 6.4 and 8.2 ) Albumin Level: 3.6 Gram/dL -- Normal range between ( 3.4 and 5.0 ) Cardiac Specific Markers 11/03/2019 9:00 PM Troponin I Ultra: <0.015 ng/mL -- [...] minutes, 2???3 times per day. ??? Take bcqw-ore-redwfdd and prescription medicines only as told by [...] 08/13/2006 Document Revised: 12/21/2016 Document Reviewed: 11/08/2015 [employer] Interactive Patient Education ?? 2019 [employer]. Emergency Awareness and Preventative Care STROKE is [...] Assistance with quitting is available by contacting 3-926-WNOO-NOW. This is a free resource providing counseling, [...] was given the opportunity to ask questions. Patient/Poultry Processor Name: Patient/Poultry Processor Signature: Relationship to Patient: Clinician/Hospital Poultry Processor Signature: Please Provide a Telephone Number Where You Can Be Reached: Is it Permissible To Leave a Message? Date: documented in this encounter Plan of Treatment Not on file documented as of this encounter Visit Diagnoses Not on filedocumented in this encounter Care Teams Bank Vault Custodian Relationship Specialty Start Date End Date Igor Meyers MD [address] [place] [address] PCP - General Family Medicine 11/23/22 08/22/23 Provider, Not In System, CHRISTIAN SALAZAR PCP - General 08/23/23 08/27/24 [facility], [facility]Doc [facility] Find-a-Doc [place], [place] [id number] PCP - General 08/28/24 11/06/24 [facility], [facility]-a[facility] [place], [place] [id number] PCP - General 11/07/24 02/22/25 [facility], Provider Not In The System, [place] [address] PCP - General 02/23/25 06/26/25 [facility], [facility]-a[facility]Doc [place], [place] [id number] PCP - General 06/27/25 documented as of this encounter
--- OUTSIDE RECORDS SUMMARY | 2025-08-12 20:18 | XMS_ITS | Encounter Summary ---
Author Organization [employer] ([place], [place], [place], [place], [place]) Address [address] [place] [address] Care Team Providers Care Md Ophthalmologist Name Role Phone Igor Meyers MD Primary Care Provider [phone] Provider, Not In System TAILER OUT Primary Care Provid er Unavailable [facility], Find[facility]A-Doc Primary Care Provider [facility], [facility] Primary Care Provider [facility], Provider Not In The System Primary Care Provider Unavailable [facility], [facility]Doc Primary Care Provider Encounter Details Date Type Department Care Team (Late st Contact Info) Description 12/06/2019 Transcribed Document [facility] [place] [address] [place] [address] ProviderRufino MD [address] [place] [address] Social History Tobacco Use Types Packs/Day Years Used Date Smoking Tobacco: Never Assessed Comments Unknown Sex and Gender Information Value Date Recorded Sex Assigned at Not on file Legal Sex Female 1:33 PM CDT Gender Identity Not on file Sexual Orientation Not on file documented as of this encounter Miscellaneous Notes * Cerner Conversion Note - Historical ProviderMD - 12/06/2019 10:[address] [facility] Entered On: 12/06/2019 10:01 EDT Performed On: 12/06/2019 10:01 EDT by MARY ANN EVANS PT [facility] Physical Therapy Screen : 1 MARY ANN EVANS PT - 12/06/2019 10:01 EDT documented in this encounter Plan of Treatment Not on file documented as of this encounter Visit Diagnoses Not on filedocumented in this encounter Care Teams Md Ophthalmologist Relationship Specialty Start Date End Date Igor Meyers MD [address] [place] [address] PCP - General Family Medicine 11/23/22 08/22/23 Provider, Not In System, CHRISTIAN SALAZAR PCP - General 08/23/23 08/27/24 [facility], [facility] [place] [address] PCP - General 08/28/24 11/06/24 [facility], [facility]Doc [facility] [place] [address] PCP - General 11/07/24 02/22/25 [facility], Provider Not In The System, [place] [address] PCP - General 02/23/25 06/26/25 [facility], [facility] [place] [address] PCP - General 06/27/25 documented as of this encounter
--- OUTSIDE RECORDS SUMMARY | 2025-08-12 20:18 | XMS_ITS | Encounter Summary ---
Author Organization [employer] ([place], [place], [place], [place], [place]) Address [address] [place] [address] Care Team Providers Care Vice President Marketing & Development Name Role Phone Igor Meyers MD Primary Care Provider [phone] Provider, Not In System CONCRETE MIXER OPERATOR Primary Care Provid er Unavailable [facility], Find-A-Doc Primary Care Provider [facility], [facility]Doc Primary Care Provider [facility], Provider Not In The System Primary Care Provider Unavailable [facility], [facility]A-Doc Primary Care Provider Encounter Details Date Type Department Care Team (Late st Contact Info) Description 11/04/2019 Transcribed Document [facility] [address] [place] [address] ProviderRufino MD [address] [place] [address] Social History Tobacco Use Types Packs/Day Years Used Date Smoking Tobacco: Never Assessed Comments Unknown Sex and Gender Information Value Date Recorded Sex Assigned at Not on file Legal Sex Female 1:33 PM CDT Gender Identity Not on file Sexual Orientation Not on file documented as of this encounter Miscellaneous Notes * Cerner Conversion Note - Rufino ProviderMD - 11/04/2019 12:49 AM CDT Electronically signed by Alphonse [facility] Conversion Hand Method Lasting Machine Operator Cerner at 12/10/2022 6:43 PM CDT documented in this encounter Plan of Treatment Not on file documented as of this encounter Visit Diagnoses Not on filedocumented in this encounter Care Teams Vice President Marketing & Development Relationship Specialty Start Date End Date Igor Meyers MD [address] [place] [address] VINNY Jasso [id number] PCP - General Family Medicine 11/23/22 08/22/23 Provider, Not In System, CHRISTIAN SALAZAR PCP - General 08/23/23 08/27/24 [facility], [facility]Doc [facility] Find-a-Doc [place], [place] [id number] PCP - General 08/28/24 11/06/24 [facility], [facility] [place] [address] PCP - General 11/07/24 02/22/25 [facility], Provider Not In The System, [place] [address] PCP - General 02/23/25 06/26/25 [facility], Find[facility]A-Doc [facility] Find-a-Doc [place], [place] [id number] PCP - General 06/27/25 documented as of this encounter
--- OUTSIDE RECORDS SUMMARY | 2025-08-12 20:18 | XMS_ITS | Encounter Summary ---
Author Organization [employer] ([place], [place], [place], [place], [place]) Address [address] [place] [address] Care Team Providers Care Electrical Equipment Tester Name Role Phone Igor Meyers MD Primary Care Provider [phone] Provider, Not In System SOLAR POOL HEATING INSTALLER Primary Care Provid er Unavailable [facility], Find[facility]A-Doc Primary Care Provider [facility], [facility]Doc Primary Care Provider [facility], Provider Not In The System Primary Care Provider Unavailable [facility], Find[facility]A-Doc Primary Care Provider Encounter Details Date Type Department Care Team (Late st Contact Info) Description 12/06/2019 Transcribed Document [facility] [place] [facility] [place] [address] ProviderRufino MD [address] [place] [address] Social History Tobacco Use Types Packs/Day Years Used Date Smoking Tobacco: Never Assessed Comments Unknown Sex and Gender Information Value Date Recorded Sex Assigned at Not on file Legal Sex Female 1:33 PM CDT Gender Identity Not on file Sexual Orientation Not on file documented as of this encounter Miscellaneous Notes * Cerner Conversion Note - Rufino ProviderMD - 12/06/2019 10:13 AM CDT Patient: ROBERTO RANDLE Age: 59 years Sex: Female : 1960 Associated Diagnoses: None Author: RADHAMES PEREZ APRN Chief Complaint chest pain History of Present Illness 59 year old WF no hx of cardiac stenting and hx of stress imaging study in 10/2018 at [facility] in [place] with SDS 1 and previously had [facility] 12/2017 septal branch small. 50% rca at that time. Presented to [facility] er, 2 week of global chest pain, sharp in nature, mild soa, at rest worse with deep breath and better without deep breathing. Trop all neg here and there and EKG NSST changes. o2 saturatoin 98% on RA and she denies cough fever or chills cxr outlying facility no acute process and this am she is asking to go home Review of Systems Constitutional: No fever, No chills, No sweats. Eye: No double vision, No visual disturbances. Ear/Nose/Mouth/Throat: No nasal congestion, No sore throat. Respiratory: No shortness of breath, No cough, No sputum production. Cardiovascular: No palpitations, No bradycardia, No tachycardia, No peripheral edema, No syncope Chest pain: Bilateral, Anterior. Gastrointestinal: No nausea, No vomiting, No diarrhea. Genitourinary: No dysuria, No hematuria. Hematology/Lymphatics: No bruising tendency. Endocrine: No excessive thirst, No polyuria, No cold intolerance. Immunologic: Not immunocompromised, No recurrent fevers. Musculoskeletal: No neck pain, No joint pain, No muscle pain. Integumentary: No rash, No pruritus. Neurologic: No abnormal balance, No confusion. Psychiatric: No anxiety, No depression. Health Status Allergies: Allergic Reactions (Selected) Severe SulfADIAZINE- Itching and c/o: a swelling. Moderate Sulfonamides- Rash and itching., Allergies (2) Active Reaction sulfADIAZINE C/O: a swelling sulfonamides Itching Current medications: (Selected) Inpatient Medications Ordered Arixtra: 2.5 mg, SubCutaneous, Daily Brilinta: 90 mg, Oral, BID Colace: 100 mg, Oral, BID Core.125 mg, Oral, BID Diovan: 40 mg, Oral, Daily Lipitor: 80 mg, Oral, At Bedtime Normal Saline 1,000 mL: 10 mL/Hr, IntraVENous Normal Saline Flush: 10 mL, IV Push, Q12H Normal Saline Flush: 10 mL, IV Push, See Comment, PRN: IV Use Tylenol: 650 mg, Oral, Q4H, PRN: Pain (Mild 1-3) acetaminophen-HYDROcodone 325 mg-5 mg oral tablet: 1 Tab, Oral, Q4H, PRN: Pain (Moderate 4-6) aspirin: 81 mg, Oral, Daily morphine: 2 mg, IV Push, Q5Min, PRN: Pain (Severe 7-10) morphine: 4 mg, IV Push, Q4H, PRN: Pain (Severe 7-10) ondansetron: 6 mg, IV Push, Q6H, PRN: Nausea/Vomiting potassium chloride 10 mEq/50 mL intravenous solution: 10 mEq, 100 mL, 100 mL/Hr, IV Piggyback, Q1H, PRN: Other (See Comment) potassium chloride 20 mEq oral tablet, extended release: 40 mEq, 2 Tab, Oral, See Comment, PRN: Other (See Comment) potassium chloride 20 mEq oral tablet, extended release: 60 mEq, 3 Tab, Oral, See Comment, PRN: Other (See Comment) Documented Medications Documented Januvia: 100 mg, Oral, [...] tablet: 1 Tab, Oral, At Bedtime, 0 Refill(s), Medications (18) Active Scheduled: (8) #NaCl 0.9% *FLUSH* inj 10 mL 10 mL, IV Push, Q12H aspirin EC 81 mg tab 81 mg 1 Tab, Oral, Daily atorvastatin 80 mg Tab 80 mg 1 Tab, Oral, At Bedtime carvedilol 3.125 mg tab 3.125 mg 1 Tab, Oral, BID docusate sodium 100 mg cap 100 mg 1 Cap, Oral, BID fondaparinux 2.5 mg/0.5 ml inj 2.5 mg 0.5 mL, SubCutaneous, Daily ticagrelor 90 mg tab 90 mg 1 Tab, Oral, BID valsartan 40 mg tab 40 mg 1 Tab, Oral, Daily Continuous: (1) NaCl 0.9% 1,000 mL 1,000 mL, IntraVENous, 10 mL/Hr PRN: (9) #NaCl 0.9% *FLUSH* inj 10 mL 10 mL, IV Push, See Comment acetaminophen 325 mg tab 650 mg 2 Tab, Oral, Q4H acetaminophen/HYDROcodone 325/5 mg tab 1 Tab, Oral, Q4H morphine 2 mg/1 ml inj 2 mg 1 mL, IV Push, Q5Min morphine 4 mg/1 mL inj 4 mg 1 mL, IV Push, Q4H ondansetron 4 mg/2 mL inj 6 mg 3 mL, IV Push, Q6H potassium chloride 10 mEq 100 mL, IV Piggyback, Q1H potassium chloride CR 20 mEq tab 40 mEq 2 Tab, Oral, See Comment potassium chloride CR 20 mEq tab 60 mEq 3 Tab, Oral, See Comment Problem list: All Problems Chronic CHF / SNOMED CT 258470021 / Confirmed Diabetes / SNOMED CT 683038288 / Confirmed Genital herpes / SNOMED CT 60705668 / Confirmed History of obstructive sleep apnea / IMO 12270423 / Confirmed Hydrocephalus / SNOMED CT 895127614 / Confirmed Hyperlipemia / SNOMED CT 41812136 / Confirmed HTN (hypertension) / SNOMED CT 4450639920 / Confirmed Myocardial infarction / SNOMED CT 77490965 / Confirmed COPD (chronic obstructive pulmonary disease) with emphysema / SNOMED CT 878908144 / Confirmed Apnea, sleep / SNOMED CT 944834880 / Confirmed, Active Problems (10) Apnea, sleep Chronic CHF COPD (chronic obstructive pulmonary disease) with emphysema Diabetes Genital herpes History of obstructive sleep apnea HTN (hypertension) Hydrocephalus Hyperlipemia Myocardial infarction Histories Past Medical History: No active or resolved past medical history items have been selected or recorded., as above Family History: No family history items have been selected or recorded., neg drew ad 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 tubal. Cholecystectomy; (82811). Multiple brain surgeries. Heart surgery as child. [...] 24 hrs) Last Charted Minimum Maximum Temp 98.2 (DEC 05 09:45) 97.6 (DEC 05 05:20) 98.1 (DEC 05 03:42) Mon HR 63 (DEC 05:45) 63 (DEC 05 09:45) 77 (DEC 05 03:42) Resp Rate 16 (DEC 05:45) 16 (DEC 05 03:42) 16 (DEC 05 03:42) SBP 117 (DEC 05 09:45) 117 (DEC 05 09:45) 131 (DEC 05 03:42) DBP L 59 (DEC 05:45) L 59 (DEC 05 09:45) 76 (DEC 05 03:42) MAP 73 (DEC 05 09:45) 73 (DEC 05 09:45) 90 (DEC 05 03:42) SpO2 98 (DEC 05:45) 97 (DEC 05 05:20) 98 (DEC 05 03:42) General: Alert and oriented, No acute distress. [...] of motion, Normal strength. Integumentary: Warm, Dry, [place]. Neurologic: Alert, Oriented. Cognition and Speech: Oriented, Speech clear and coherent. Psychiatric: Cooperative, Appropriate mood & affect. Review / Management Results review: Labs (Last four charted values) WBC H 11.9 (DEC 05) HB 13.5 (DEC 05) HCT 41.2 (DEC 05) Plt 225 (DEC 05) Na 137 (DEC 05) K 4.4 (DEC 05) Cl 105 (DEC 05) CO2 25 (DEC 05) BUN 15 (DEC 05) Cr 0.60 (DEC 05) Glu R H 170 (DEC 05) Ca 9.7 (DEC 05) AST 18 (DEC 05) ALT 26 (DEC 05) ALK P 70 (DEC 05) T Bili 0.2 (DEC 05) PTN 6.8 (DEC 05) ALB 3.5 (DEC 05) Troponin <0.015 (DEC 05) . Impression and Plan CAd with chest pain-pleuritic -this is atypical for angina -trops neg -ekg NSSt changes -cath 12/2017 rca 50 and septal small 99% -continue plavix, coreg, ranexa 500 bid, lipitor 40. 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 htnbe -as above dyslipidemia -as above Electronically signed by [facility], [facility] Conversion Lard Tub Washer Cerner at 12/10/2022 6:32 PM CDT documented in this encounter Plan of Treatment Not on file documented as of this encounter Visit Diagnoses Not on filedocumented in this encounter Care Teams Electrical Equipment Tester Relationship Specialty Start Date End Date Igor Meyers MD [address] [place], [place] [id number] PCP - General Family Medicine 11/23/22 08/22/23 Provider, Not In System, SOLAR POOL HEATING INSTALLER [place] PCP - General 08/23/23 08/27/24 [facility], Find-A-Doc [facility] Find[facility]Doc [place], [place] [id number] PCP - General 08/28/24 11/06/24 [facility], [facility]Doc [facility] Find[facility]Doc [place], [place] [id number] PCP - General 11/07/24 02/22/25 [facility], Provider Not In The System, [place] [address] PCP - General 02/23/25 06/26/25 [facility], [facility]Doc [facility] [place] [address] PCP - General 06/27/25 documented as of this encounter
--- OUTSIDE RECORDS SUMMARY | 2025-08-12 20:18 | XMS_ITS | Encounter Summary ---
Author Organization [employer] ([place], [place], [place], [place], [place]) Address [address] [place] [address] Care Team Providers Care Traffic Assistant Name Role Phone Igor Meyers MD Primary Care Provider [phone] Provider, Not In System TIN CONTAINER STRAIGHTENER Primary Care Provid er Unavailable [facility] Connection, Find-A-Doc Primary Care Provider [facility] Connection, Find-A-Doc Primary Care Provider [facility], Provider Not In The System Primary Care Provider Unavailable [facility] Connection, Find-A-Doc Primary Care Provider Encounter Details Date Type Department Care Team (Late st Contact Info) Description 12/06/2019 Transcribed Document [facility] [place] [address] [place] [address] ProviderRufino MD [address] [place] [address] Social History Tobacco Use Types Packs/Day Years Used Date Smoking Tobacco: Never Assessed Comments Unknown Sex and Gender Information Value Date Recorded Sex Assigned at Not on file Legal Sex Female 1:33 PM CDT Gender Identity Not on file Sexual Orientation Not on file documented as of this encounter Miscellaneous Notes * Cerner Conversion Note - Rufino ProviderMD - 12/06/2019 5:31 AM CDT Cardiac and Pulmonary Outpatient [place]rol Entered On: 12/15/2019 10:17 EDT Performed On: 12/15/2019 10:17 EDT by KENNY WILLARD, nanny babysitter and Pulmonary Outpatient [place]rol Criteria Disqualifying for Phase 2 Cardiac Rehab : No qualifying diagnosis KENNY WILLARD RN - 12/15/2019 10:17 EDT Electronically signed by Alphonse [facility] Conversion Grades 1 Thru 6 Home Teacher Cerner at 12/10/2022 6:44 PM CDT documented in this encounter Plan of Treatment Not on file documented as of this encounter Visit Diagnoses Not on filedocumented in this encounter Care Teams Traffic Assistant Relationship Specialty Start Date End Date Igor Meyers MD [address] [place] [address] PCP - General Family Medicine 11/23/22 08/22/23 Provider, Not In System, CHRISTIAN SALAZAR PCP - General 08/23/23 08/27/24 [facility] Connection, Find-A-Doc [facility] [place] [address] PCP - General 08/28/24 11/06/24 [facility] Connection, Find-A-Doc [facility] [place] [address] PCP - General 11/07/24 02/22/25 [facility], Provider Not In The System, [place] [address] PCP - General 02/23/25 06/26/25 [facility] Connection, Find-A-Doc [facility] [place] [address] PCP - General 06/27/25 documented as of this encounter
--- OUTSIDE RECORDS SUMMARY | 2025-08-12 20:18 | XMS_ITS | Encounter Summary ---
Author Organization [email or web address] ([place], [place], [place], [place], [place]) Address [address] [place] [address] Care Team Providers Care Machinist Helper Marine Name Role Phone Igor Meyers MD Primary Care Provider [phone] Provider, Not In System WAGE AND HOUR INVESTIGATOR Primary Care Provid er Unavailable [facility] Connection, Find-A-Doc Primary Care Provider [facility] Connection, Find-A-Doc Primary Care Provider [facility], Provider Not In The System Primary Care Provider Unavailable [facility] Connection, Find-A-Doc Primary Care Provider Encounter Details Date Type Department Care Team (Late st Contact Info) Description 11/04/2019 Transcribed Document [facility] [place] Family Medicine [address] [place] [address] ProviderRufino MD [address] [place] [address] Social History Tobacco Use Types Packs/Day Years Used Date Smoking Tobacco: Never Assessed Comments Unknown Sex and Gender Information Value Date Recorded Sex Assigned at Not on file Legal Sex Female 1:33 PM CDT Gender Identity Not on file Sexual Orientation Not on file documented as of this encounter Miscellaneous Notes * Cerner Conversion Note - Rufino ProviderMD - 11/04/2019 1:45 AM CDT ED Discharge Entered On: 11/04/2019 2:30 EDT Performed On: 11/04/2019 1:45 EDT by KAIT HERNANDEZ catechist Process Patient Disposition : Discharge Personal Belongings With Patient : No Teaching Evaluation : Needs further teaching IV Discontinued : Yes Nursing Documentation Completed : Yes IV Therapy Comment : IV dcd to right AC. Dressing applied CDI Skinpwd. KAIT HERNANDEZ RN - 11/04/2019 2:29 EDT ED Discharge Vital Signs Peripheral Pulse Rate : 69 bpm Respiratory Rate : 18 Breaths/Min Systolic Blood Pressure : 140 mmHg Diastolic Blood Pressure : 65 mmHg Oxygen Saturation : 98 % Oxygen Therapy Mode : Room air KAIT HERNANDEZ RN - 11/04/2019 2:29 EDT Electronically signed by [facility] Conversion Plastic Sheeting Cutter Cerner at 12/10/2022 6:51 PM CDT documented in this encounter Plan of Treatment Not on file documented as of this encounter Visit Diagnoses Not on filedocumented in this encounter Care Teams Machinist Helper Marine Relationship Specialty Start Date End Date Igor Meyers MD [address] [place] [address] PCP - General Family Medicine 11/23/22 08/22/23 Provider, Not In System, CHRISTIAN SALAZAR PCP - General 08/23/23 08/27/24 [facility] Connection, Find-A-Doc [facility] [place], [place] [id number] PCP - General 08/28/24 11/06/24 [facility] Connection, Find-A-Doc [facility] [place] [address] PCP - General 11/07/24 02/22/25 [facility], Provider Not In The System, [place] [address] PCP - General 02/23/25 06/26/25 [facility] Connection, Find-A-Doc [facility] Find-a-Doc [place], [place] [id number] PCP - General 06/27/25 documented as of this encounter
--- OUTSIDE RECORDS SUMMARY | 2025-08-12 20:18 | XMS_ITS | Encounter Summary ---
Author Organization [employer] ([place], [place], [place], [place], [place]) Address [address] [place] [address] Care Team Providers Care Wrapper Layer Name Role Phone Igor Meyers MD Primary Care Provider [phone] Provider, Not In System PORT SURVEYOR Primary Care Provid er Unavailable [facility] Connection, Find-A-Doc Primary Care Provider [facility] Connection, Find-A-Doc Primary Care Provider [facility], Provider Not In The System Primary Care Provider Unavailable [facility] Connection, Find-A-Doc Primary Care Provider Encounter Details Date Type Department Care Team (Late st Contact Info) Description 11/10/2019 Transcribed Document [facility] [place] Family Medicine [facility] [place] [address] ProviderRufino MD [address] [place] [address] Social History Tobacco Use Types Packs/Day Years Used Date Smoking Tobacco: Never Assessed Comments Unknown Sex and Gender Information Value Date Recorded Sex Assigned at Not on file Legal Sex Female 1:33 PM CDT Gender Identity Not on file Sexual Orientation Not on file documented as of this encounter Miscellaneous Notes * Cerner Conversion Note - Rufino ProviderMD - 11/10/2019 5:24 AM CDT ED Discharge Entered On: 11/10/2019 5:24 EDT Performed On: 11/10/2019 5:24 EDT by RAZ ADLER RN Discharge Process Patient Disposition : Transfer Personal Belongings With Patient : Yes IV Discontinued : No RAZ ADLER RN - 11/10/2019 5:24 EDT Electronically signed by Alphonse [facility] Conversion Senior Strategy Manager Cerner at 12/10/2022 6:29 PM CDT documented in this encounter Plan of Treatment Not on file documented as of this encounter Visit Diagnoses Not on filedocumented in this encounter Care Teams Wrapper Layer Relationship Specialty Start Date End Date Igor Meyers MD [address] [place] [address] PCP - General Family Medicine 11/23/22 08/22/23 Provider, Not In System, CHRISTIAN SALAZAR PCP - General 08/23/23 08/27/24 [facility] Connection, Find-A-Doc [facility] [place] [address] PCP - General 08/28/24 11/06/24 [facility] Connection, Find-A-Doc [facility] [place] [address] PCP - General 11/07/24 02/22/25 [facility], Provider Not In The System, [place] [address] PCP - General 02/23/25 06/26/25 [facility] Connection, Find-A-Doc [facility] [place] [address] PCP - General 06/27/25 documented as of this encounter
--- OUTSIDE RECORDS SUMMARY | 2025-08-12 20:18 | XMS_ITS | Encounter Summary ---
Author Organization [employer] ([place], [place], [place], [place], [place]) Address [address] [place] [address] Care Team Providers Care Cloth Brushing And Sueding Supervisor Name Role Phone Igor Hairston MD Primary Care Provider [phone] Provider, Not In System SCREW MACHINE OPERATOR SINGLE SPINDLE Primary Care Provid er Unavailable [facility] Connection, Find-A-Doc Primary Care Provider [facility] Connection, Find-A-Doc Primary Care Provider [facility], Provider Not In The System Primary Care Provider Unavailable [facility] Connection, Find-A-Doc Primary Care Provider Encounter Details Date Type Department Care Team (Late st Contact Info) Description 12/06/2019 Transcribed Document [facility] [place] Family [place] [facility] [place] [address] ProviderRufino MD [address] [place] [address] Social History Tobacco Use Types Packs/Day Years Used Date Smoking Tobacco: Never Assessed Comments Unknown Sex and Gender Information Value Date Recorded Sex Assigned at Not on file Legal Sex Female 1:33 PM CDT Gender Identity Not on file Sexual Orientation Not on file documented as of this encounter Miscellaneous Notes * Cerner Conversion Note - Rufino ProviderMD - 12/06/2019 12:43 PM CDT [address] [address] ROBERTO RANDLE :1960 Visit Time:12/06/2019 Your Visit Summary [...] appoint/instructions Where: [address] [place] [address]- Business (1) Medications What How [...] return to your normal activities. ??? Take tacj-ktf-aukrhgr and prescription medicines only as told by [...] 01/29/2009 Document Revised: 01/13/2019 Document Reviewed: 01/13/2019 [employer] Interactive Patient Education ?? 2019 [employer] Nonspecific Chest Pain Chest pain can [...] you start to feel better. ??? Take cfjq-xgk-pxklwes and prescription medicines only as told by [...] 05/23/2006 Document Revised: 05/07/2017 Document Reviewed: 05/07/2017 [employer] Interactive Patient Education ?? 2019 [employer] Emergency Awareness and Preventative Care STROKE [...] Assistance with quitting is available by contacting 2-073-PZEDNOW. This is a free resource providing counseling, [...] range between ( 1.0 and 7.0 ) Young #: 0.79 K/uL -- Normal range between ( 0.24 and 0.82 ) Eos #: 0.20 K/uL -- Normal range between ( 0.04 and 0.54 ) Young %: 6.6 % -- Normal range between [...] 0.76 and 1.46 ) Patient Name:ROBERTO RANDLE JANE I have received and understand this information and was given the opportunity to ask questions. Patient/Drill Sharpener Name: Patient/Drill Sharpener Signature: Relationship to Patient: Clinician/Hospital Drill Sharpener Signature: Date: documented in this encounter Plan of Treatment Not on file documented as of this encounter Visit Diagnoses Not on filedocumented in this encounter Care Teams Cloth Brushing And Sueding Supervisor Relationship Specialty Start Date End Date Igor Hairston MD [address] [place] [address] PCP - General Family Medicine 11/23/22 08/22/23 Provider, Not In System, CHRISTIAN SALAZAR PCP - General 08/23/23 08/27/24 [facility] Connection, Find-A-Doc [facility] [place] [address] PCP - General 08/28/24 11/06/24 [facility] Connection, Find-A-Doc [facility] [place] [address] PCP - General 11/07/24 02/22/25 [facility], Provider Not In The System, [address] [place] [address] PCP - General 02/23/25 06/26/25 [facility] Connection, Find-A-Doc [facility] [place] [address] PCP - General 06/27/25 documented as of this encounter
--- OUTSIDE RECORDS SUMMARY | 2025-08-12 20:18 | XMS_ITS | Encounter Summary ---
Author Organization [employer] ([place], [place], [place], [place], [place]) Address [address] [place] [address] Care Team Providers Care Sales Audit Clerk Name Role Phone Igor Meyers MD Primary Care Provider [phone] Provider, Not In System PRINTING AGENT Primary Care Provid er Unavailable [facility] Connection, Find-A-Doc Primary Care Provider [facility] Connection, Find-A-Doc Primary Care Provider [facility], Provider Not In The System Primary Care Provider Unavailable [facility] Connection, Find-A-Doc Primary Care Provider Encounter Details Date Type Department Care Team (Late st Contact Info) Description 11/09/2019 Transcribed Document [facility] [place] [address] ProviderRufino MD [address] [place] [address] Social History Tobacco Use Types Packs/Day Years Used Date Smoking Tobacco: Never Assessed Comments Unknown Sex and Gender Information Value Date Recorded Sex Assigned at Not on file Legal Sex Female 1:33 PM CDT Gender Identity Not on file Sexual Orientation Not on file documented as of this encounter Miscellaneous Notes * Cerner Conversion Note - Rufino ProviderMD - 11/09/2019 9:40 PM CDT ED Triage Entered On: 11/09/2019 21:51 EDT Performed On: 11/09/2019 21:47 EDT by Annie Sinclair, INTER COM SERVICER Triage Across the Room Chief Complaint : diarrhea, chills, headache, body aches X 1 week Triage Date/Time : 11/09/2019 21:47 EDT Annie Sinclair RN - 11/09/2019 21:47 EDT Annie Sinclair RN - 11/09/2019 21:47 EDT DCP GENERIC CODE Tracking Group : Psychiatric Annie Sinclair RN - 11/09/2019 21:47 EDT Tracking Acuity : 3 - Urgent Annie Sinclair RN - 11/09/2019 21:52 EDT Mode of Arrival : Ambulatory Transported to ED by : Walk in To Room Via : Ambulate Accompanied By : Unaccompanied ED Vital Signs : Document Height & Weight : Document ED Allergies : Document ED Reason for Visit : Document Status : Menopause Tetanus Immunization : Less than 5 years Annie Sinclair RN - 11/09/2019 21:47 EDT Infectious Disease History COVID19 Screening : No Physical contact outside [place] in the last 30 days : No Infectious Disease History : Chicken pox/Shingles, Herpes, Measles, Mumps Tuberculosis Symptoms : None Annie Sinclair RN - 11/09/2019 21:47 EDT Vital Signs ED Temperature Source : Oral Temperature Mode : Fahrenheit Temperature, Fahrenheit : 98.0 Deg F Clinical Temperature, C : 36.7 Deg C Oxygen Therapy Mode : Room air Peripheral Pulse Rate : 82 bpm Respiratory Rate : 16 Breaths/Min Systolic Blood Pressure : 159 mmHg (HI) Diastolic Blood Pressure : 79 mmHg Oxygen Saturation : 96 % Annie Sinclair RN - 11/09/2019 21:47 EDT Allergy (As Of: 11/09/2019 21:51:25 EDT) Allergies (Active) sulfADIAZINE Estimated Onset Date: Unspecified ; Reactions: itching ; Created By: Ella Phelan Rn; Reaction Status: Active ; Category: Drug ; Substance: sulfADIAZINE ; Type: Allergy ; Severity: Severe ; Updated By: Ella Phelan Rn; Reviewed Date: 11/09/2019 21:50 EDT sulfonamides Estimated Onset Date: Unspecified ; Reactions: Itching, Rash ; Created By: Diana Michel, Pharmacist-Resident; Reaction Status: Active ; Category: Drug ; Substance: sulfonamides ; Type: Allergy ; Severity: Moderate ; Updated By: Diana Michel, Pharmacist-Resident; Source: Patient ; Reviewed Date: 11/09/2019 21:50 EDT Diagnosis Control ED (As Of: 11/09/2019 21:51:25 EDT) Problems(Active) Apnea, sleep (SNOMED CT :632888270 ) Name of Problem: Apnea, sleep ; Recorder: Sheryl Burnett RN; Confirmation: Confirmed ; Classification: Patient Stated ; Code: [id number] ; Contributor System: NEURONIX ; Last Updated: 08/12/2014 20:25 EST ; Life Cycle Date: 08/12/2014 ; Life Cycle Status: Active ; Vocabulary: SNOMED CT Chronic CHF (SNOMED CT :048072322 ) Name of Problem: Chronic CHF ; Recorder: Sheryl Burnett RN; Confirmation: Confirmed ; Classification: Patient Stated ; Code: [id number] ; Contributor System: PowerChart ; Last Updated: 08/12/2014 20:25 EST ; Life Cycle Date: 08/12/2014 ; Life Cycle Status: Active ; Vocabulary: SNOMED CT COPD (chronic obstructive pulmonary disease) with emphysema (SNOMED CT :310434038 ) Name of Problem: COPD (chronic obstructive pulmonary disease) with emphysema ; Recorder: Sheryl Burnett RN; Confirmation: Confirmed ; Classification: Patient Stated ; Code: [id number] ; Contributor System: MobileTagChart ; Last Updated: 08/12/2014 20:25 EST ; Life Cycle Date: 08/12/2014 ; Life Cycle Status: Active ; Vocabulary: SNOMED CT Diabetes (SNOMED CT :485010230 ) Name of Problem: Diabetes ; Recorder: Sheryl Burnett RN; Confirmation: Confirmed ; Classification: Patient Stated ; Code: [id number] ; Contributor System: PowerChart ; Last Updated: 08/12/2014 20:24 EST ; Life Cycle Date: 08/12/2014 ; Life Cycle Status: Active ; Vocabulary: SNOMED CT Genital herpes (SNOMED CT :18569685 ) Name of Problem: Genital herpes ; Recorder: Sheryl Burnett RN; Confirmation: Confirmed ; Classification: Patient Stated ; Code: 91116374 ; Contributor System: MobileTagChart ; Last Updated: 08/12/2014 20:25 EST ; Life Cycle Date: 08/12/2014 ; Life Cycle Status: Active ; Vocabulary: SNOMED CT History of obstructive sleep apnea (IMO :01622762 ) Name of Problem: History of obstructive sleep apnea ; Recorder: SYSTEM, SYSTEM; Confirmation: Confirmed ; Classification: Medical ; Code: 39179135 ; Last Updated: 03/07/2018 10:59 EDT ; Life Cycle Date: 03/07/2018 ; Life Cycle Status: Active ; Vocabulary: IMO HTN (hypertension) (SNOMED CT :8772464756 ) Name of Problem: HTN (hypertension) ; Recorder: Sheryl Burnett RN; Confirmation: Confirmed ; Classification: Patient Stated ; Code: 6130114134 ; Contributor System: PowerChart ; Last Updated: 08/12/2014 20:24 EST ; Life Cycle Date: 08/12/2014 ; Life Cycle Status: Active ; Vocabulary: SNOMED CT Hydrocephalus (SNOMED CT :616579898 ) Name of Problem: Hydrocephalus ; Recorder: Sheryl Burnett RN; Confirmation: Confirmed ; Classification: Patient Stated ; Code: [id number] ; Contributor System: MobileTagChart ; Last Updated: 08/12/2014 20:24 EST ; Life Cycle Date: 08/12/2014 ; Life Cycle Status: Active ; Vocabulary: SNOMED CT Hyperlipemia (SNOMED CT :22948172 ) Name of Problem: Hyperlipemia ; Recorder: Sheryl Burnett RN; Confirmation: Confirmed ; Classification: Patient Stated ; Code: 98574392 ; Contributor System: PowerChart ; Last Updated: 08/12/2014 20:24 EST ; Life Cycle Date: 08/12/2014 ; Life Cycle Status: Active ; Vocabulary: SNOMED CT Myocardial infarction (SNOMED CT :11855964 ) Name of Problem: Myocardial infarction ; Recorder: Sheryl Burnett RN; Confirmation: Confirmed ; Classification: Patient Stated ; Code: 14966574 ; Contributor System: PowerChart ; Last Updated: 08/12/2014 20:25 EST ; Life Cycle Date: 08/12/2014 ; Life Cycle Status: Active ; Vocabulary: SNOMED CT Diagnoses(Active) Chills Date: 11/09/2019 ; Diagnosis Type: Reason For Visit ; Confirmation: Complaint of ; Clinical Dx: Chills ; Classification: Medical ; Clinical Service: Emergency medicine ; Code: PNED ; Probability: 0 ; Diagnosis Code: [id number] Diarrhea Date: 11/09/2019 ; Diagnosis Type: Reason For Visit ; Confirmation: Complaint of ; Clinical Dx: Diarrhea ; Classification: Medical ; Clinical Service: Emergency medicine ; Code: PNED ; Probability: 0 ; Diagnosis Code: [id number] Headache Date: 11/09/2019 ; Diagnosis Type: Reason For Visit ; Confirmation: Complaint of ; Clinical Dx: Headache ; Classification: Medical ; Clinical Service: Emergency medicine ; Code: PNED ; Probability: 0 ; Diagnosis Code: [id number] ED Height and Weight Height Source : Stated Height Entry Format : [place] Height, Feet : 4 ft(Converted to: 122 cm, 48 Inch) Height, Inches : 11 Inch(Converted to: 0 ft 11 Inch, 27.94 cm) Clinical Height : 149.86 cm Weight Source, ED : Standing scale Weight Entry Format : [place] Weight, Pounds : 190 lb Clinical Dosing Weight : 86.36 kg Body Surface Area (BSA) : 1.81 m2 Body Mass Index : 38.5 kg/m2 (HI) [place] Body Weight (IBW) : 42.87 kg Annie Sinclair RN - 11/09/2019 21:47 EDT Electronically signed by [facility] Conversion Civil Clerk Cerner at 12/10/2022 6:39 PM CDT documented in this encounter Plan of Treatment Not on file documented as of this encounter Visit Diagnoses Not on filedocumented in this encounter Care Teams Sales Audit Clerk Relationship Specialty Start Date End Date Igor Meyers MD [address] [place] [address] PCP - General Family Medicine 11/23/22 08/22/23 Provider, Not In System, CHRISTIAN SALAZAR PCP - General 08/23/23 08/27/24 [facility] Connection, Find-A-Doc [facility] [place] [address] PCP - General 08/28/24 11/06/24 [facility] Connection, Find-A-Doc [facility] [place] [address] PCP - General 11/07/24 02/22/25 [facility], Provider Not In The System[place] [address] PCP - General 02/23/25 06/26/25 [facility] Adan, Find-A-Doc [facility] Adan Find-a-Doc [place] [id number] PCP - General 06/27/25 documented as of this encounter
--- OUTSIDE RECORDS SUMMARY | 2025-08-12 20:18 | XMS_ITS | Encounter Summary ---
Author Organization [employer] ([place], [place], [place], [place], [place]) Address [address] [place] [address] Care Team Providers Care Bilingual Speech Language Pathologist Name Role Phone Igor Meyers MD Primary Care Provider [phone] Provider, Not In System [employer] Primary Care Provid er Unavailable [facility], [facility] Primary Care Provider [facility], [facility] Primary Care Provider [facility], Provider Not In The System Primary Care Provider Unavailable [facility], [facility] Primary Care Provider Encounter Details Date Type Department Care Team (Late st Contact Info) Description 11/09/2019 Transcribed Document [facility] Family Medicine [facility] [place] [address] ProviderRufino MD [address] [place] [address] Social History Tobacco Use Types Packs/Day Years Used Date Smoking Tobacco: Never Assessed Comments Unknown Sex and Gender Information Value Date Recorded Sex Assigned at Not on file Legal Sex Female 1:33 PM CDT Gender Identity Not on file Sexual Orientation Not on file documented as of this encounter Miscellaneous Notes * Cerner Conversion Note - Rufion ProviderMD - 11/09/2019 9:40 PM CDT ED Assessment Entered On: 11/09/2019 22:54 EDT Performed On: 11/09/2019 22:53 EDT by RAZ ADLER, ROTATING EQUIPMENT SPECIALIST Quick Look Assessment Level of Consciousness : Alert, Awake RAZ ADLER RN - 11/09/2019 22:53 EDT ED General-Functional Assess Information Obtained From : Patient Preferred Communication Mode : Verbal Communication Barrier : None Primary Language : Polish Any Spiritual/Cultural Needs or Requests : No Currently in Unsafe Situation : No RAZ ADLER RN - 11/09/2019 22:53 EDT Social Habits Smoking Status : Never (less than 100 in lifetime; none in last 30 days) Smokeless Tobacco Status : Never Desires Tobacco Cessation Calc : 0 RAZ ADLER RN - 11/09/2019 22:53 EDT Social History (As Of: 11/09/2019 22:54:43 EDT) Tobacco: Smoking Status Never smoker. (Last [...] DENZEL) EENT Assessment EENT Assessment WDL : RAZ BAEZ RN - 11/09/2019 22:53 EDT Cardiovascular ASMT, ED Cardiovascular Assessment WDL : RAZ BAEZ RN - 11/09/2019 22:53 EDT Pulses Grid Brachial Pulse, Left : 2+ normal Brachial Pulse, Right : 2+ normal Carotid Pulse, Left : 2+ normal Carotid Pulse, Right : 2+ normal Dorsalis Pedis Pulse, Left : 2+ normal Dorsalis Pedis Pulse, Right : 2+ normal Femoral Pulse, Left : 2+ normal Femoral Pulse, Right : 2+ normal Popliteal Pulse, Left : 2+ normal Popliteal Pulse, Right : 2+ normal Posterior Tibial Pulse, Left : 2+ normal Posterior Tibial Pulse, Right : 2+ normal Radial Pulse, Left : 2+ normal Radial Pulse, Right : 2+ normal RAZ ADLER RN - 11/09/2019 22:53 EDT Respiratory Respiratory Assessment WDL : RAZ BAEZ RN - 11/09/2019 22:53 EDT Breath Sounds Assessment Grid All Lobes Breath Sounds : Clear EVAN : Clear LLL : Clear RUL : Clear RML : Clear RLL : Clear RAZ ADLER RN - 11/09/2019 22:53 EDT Gastrointestinal ED Gastrointestinal Assessment WDL : WDL with exceptions Gastrointestinal Symptoms : Diarrhea RAZ ADLER RN - 11/09/2019 22:53 EDT Genitourinary Assessment, ED Genitourinary Assessment WDL : RAZ BAEZ RN - 11/09/2019 22:53 EDT Musculoskeletal Musculoskeletal Assessment WDL : GABRIELAL RAZ ADLER RN - 11/09/2019 22:53 EDT Integumentary Assessment Integumentary Assessment WDL : RAZ BAEZ RN - 11/09/2019 22:53 EDT Neurologic ASMT, ED Neurologic Assessment WDL : WDL with exceptions Neurological Symptoms : Dizziness RAZ ADLER RN - 11/09/2019 22:53 EDT documented in this encounter Plan of Treatment Not on file documented as of this encounter Visit Diagnoses Not on filedocumented in this encounter Care Teams Bilingual Speech Language Pathologist Relationship Specialty Start Date End Date Igor Meyers MD [address] [place] [id number] PCP - General Family Medicine 11/23/22 08/22/23 Provider, Not In System, CHRISTINA SALAZAR PCP - General 08/23/23 08/27/24 [facility], [facility]-Doc [place], [place] [id number] PCP - General 08/28/24 11/06/24 [facility], [facility] [place], [place] [id number] PCP - General 11/07/24 02/22/25 [facility], Provider Not In The System, [place] [address] PCP - General 02/23/25 06/26/25 [facility], [facility] [place] [address] PCP - General 06/27/25 documented as of this encounter
== END 2025-08-12 23:59 | disposition home or self-care (01) ==
LOC: LAB.DROPOF 20:04
PROVIDERS: PCP Student in an Organized Health Care Education/Training Program; Visit Provider Family Medicine
DX: E55.9 Vitamin D deficiency, unspecified (principal); E11.9 Type 2 diabetes mellitus without complications; D72.829 Elevated white blood cell count, unspecified
CPT/HCPCS: 80053; 82043; 82306; 82570; 83036; 85025